=== PATIENT | female | born 1955 | race Caucasian/White ===

== ENCOUNTER 2016-07-11 12:28 | Outpatient (CLI) | payer MEDICAID ==
[~2016-07-11] VITALS: Ht 170.2 cm; Wt 106.6 kg
[~2016-07-11 12:28] MED LIST: ALBU8.5H2; AMOX-358 PO; ASPI-84 PO; ATEN50TA PO; ATOR80TA PO; CEFD300C3 PO; CETI10CA PO; CHOL100048 PO; CLPD75T PO; DULO60CA6 PO; ESTR0.5T3 PO; ESZO2TAB4 PO; FOLI1TAB24 PO; FURO80TA3 PO; HYDR-3720 PO; INDO50SU2 PO; LORA10TA7 PO; MULT-885 PO; PANT40TA3 PO; POTA20TA7 PO; PREG75CA PO; RANI150T15 PO; RISP1TAB94 PO; RIVA1PAT TD; SPIR50TA27 PO; SULF1TAB35 PO; TERB250T10 PO; TRAM50TA2 PO; TRIA16.5 INH; TRIAMCINOLONE TP
--- OUTSIDE RECORDS SUMMARY | 2016-07-11 12:31 | XMS REPORT | Continuity of Care Document ---
Author Author [facility] Organization [facility] Address Unknown Phone Unavailable Care Team Providers Care Quick Sketch Artist Name Role Phone Ray Serna PCP [phone] Source Comments Some departments are not documenting in the electronic medical record. If you do not see the information that you expected, contact Release of Information in the Health Information Management department at [phone] for further assistance in locating additional records.[facility] Active Allergies and Adverse Reactions Allergen Noted Date Severity Reactions Comments Egg 02/12/2016 Low SEE COMMENTS Throat swelling Milk 02/12/2016 Low SEE COMMENTS Throat swelling Current Medications Prescription Sig. Disp. Refills Start End Date Status Date atenolol (TENORMIN) 50 mg Take 50 mg by mouth twice Active tablet daily. cholecalciferol (VITAMIN Take 2,000 Units by mouth Active D-3) 1,000 units tablet daily. loratadine (CLARITIN) 10 Take 10 mg by mouth every Active mg tablet morning. duloxetine DR (CYMBALTA) Take 30 mg by mouth twice Active 30 mg capsule daily. rivastigmine(+) (EXELON) Apply 1 Patch to top of Active 4.6 mg/24 hr transdermal skin as directed daily. patch folic acid (FOLVITE) 1 mg Take 1 mg by mouth daily. Active tablet loperamide (IMODIUM) 2 mg Take 2 mg by mouth every Active capsule 6 hours as needed for Diarrhea. pregabalin (LYRICA) 150 Take 150 mg by mouth Active mg capsule three times daily. mirabegron(+) ER Take 50 mg by mouth Active (MYRBETRIQ) 50 mg tablet daily. pantoprazole DR Take 40 mg by mouth Active (PROTONIX) 40 mg tablet daily. risperiDONE (RISPERDAL) 1 Take 1 mg by mouth twice Active mg tablet daily. MULTIVIT,TH IRON,OTHER Take 1 Tab by mouth Active MIN (THERA-M PO) daily. triamcinolone acetonide Apply topically to Active (KENALOG) 0.1 % topical affected area every 12 cream hours. solifenacin(+) (VESICARE) Take 10 mg by mouth Active 10 mg tablet daily. ranitidine hcl(+) Take 150 mg by mouth Active (ZANTAC) 150 mg tablet twice daily. Cetirizine (ZYRTEC) 10 mg Take by mouth daily. Active cap ALPRAZolam (XANAX) 1 mg Take 1 mg by mouth every Active tablet 6 hours as needed for Anxiety. acetaminophen (TYLENOL) Take 2 Tabs by mouth four 0 03/09/20 Active 325 mg tablet times daily. AFTER one 16 week taking it as scheduled, you may transition to use as needed, 1-2 tabs every 4 hours if needed. Do not take more than 4 grams (4,000 mg) in 24 hours.This medication may be purchased from over the counter from your preferred pharmacy aspirin 325 mg tablet Take 1 Tab by mouth twice 60 Tab 0 03/16/20 Active daily. Start this the day 16 after your final lovenox injection and continue for 4 weeks. This is to prevent blood clotsThis medication may be purchased from over the counter from your preferred pharmacy docusate (COLACE) 100 mg Take 1 Cap by mouth twice 180 Cap 3 03/09/20 Active capsule daily. Use while taking 16 pain medications. 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 Hx of tobacco use, presenting hazards to health 02/17/2016 Overview: Stopped 2013 Hypertension goal BP (blood pressure) < 130/80 02/17/2016 Dyslipidemia 02/17/2016 Overweight 02/17/2016 Dyspnea on exertion 02/17/2016 CAD (coronary artery disease) Overview: Hx [place] 2007, patient reports having 9 stents placed over the years Resolved Problems Problem Noted Date Resolved Date 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 03/18/2016 Complications due to internal orthopedic device, implant, and graft (HCC) 03/18/2016 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 03/18/2016 Most Recent Encounters Date Type Specialty Providers Description 06/24/2016 Orders Only Orthopedic Surgery Sedrick Mei MD Status post total replacement of right hip (Primary Dx) 06/14/2016 Office Visit Orthopedic Surgery Sedrick Mei MD Right shoulder pain, unspecified chronicity (Primary Dx) 05/03/2016 Office Visit Orthopedic Surgery Sedrick Mei MD S/P revision of total hip (Primary Dx) 05/03/2016 Hospital Radiology Sedrick Mei MD Encounter 04/25/2016 Orders Only Orthopedic Surgery Sedrick Mei MD S/P revision of total hip (Primary Dx) Social History Tobacco Use Types Packs/Day Years Used Date Former Smoker Cigarettes 1 9 Quit: 05/15/2013 Smokeless Tobacco: Never Used Tobacco Cessation: Counseling Given: Yes Comments: Alcohol Use Drinks/Week oz/Week Comments No 0 Standard 0.0 drinks or equivalent Last Filed Vital Signs Vital Sign Reading Time Taken Blood Pressure 137/85 06/14/2016 10:48 AM ANIMAL ASSISTED THERAPIST Pulse 61 06/14/2016 10:48 AM ANIMAL ASSISTED THERAPIST Temperature 36.8 C (98.2 F) 03/10/2016 6:39 AM CDT Respiratory Rate - - Height 1.702 m (5' 7") 06/14/2016 10:48 AM ANIMAL ASSISTED THERAPIST Weight 110.224 kg (243 lb) 06/14/2016 10:48 AM ANIMAL ASSISTED THERAPIST Body Mass Index 38.05 06/14/2016 10:48 AM ANIMAL ASSISTED THERAPIST Oxygen Saturation 93% 03/10/2016 6:39 AM CDT Plan of Care Date Type Specialty Providers Description 02/28/2017 Appointment Orthopedic Surgery Sedrick Mei MD [address] [facility] [address] [place] [address] [phone] (Fax) Health Maintenance Due Date Last Done Comments Hepatitis C Screening 1954 Physical (Comprehensive) 1961 Exam Pertussis Vaccine 1965 Tetanus Vaccine 09/28/1971 Cervical Cancer Screening 09/28/1975 Breast Cancer Screening 1994 Colorectal Cancer 2004 Screening Shingles Vaccine 2014 Influenza Vaccine 01/14/2016 Results from Last 3 Months HIP MIN 4 VIEWS W PELVIS RT (05/03/2016 8:39 AM) Impressions Findings/Impression: 1. 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 Postoperative air has resolved. The skin camden have been removed. Tiny amount of heterotopic ossification adjacent to greater tuberosity is noted. 2. Right hip arthroplasty with large acetabular cup is again noted. Alignment is maintained. No periprosthetic lucency about the femoral stem. 3. Left hip arthroplasty is unchanged. Moderate degenerative changes lower lumbar spine is noted. Finalized by Reynold Samuels M.D. on 05/03/2016 9:33 AM. Dictated by Reynold Samuels M.D. on 05/03/2016 9:31 AM. Narrative HIP MIN 4 VIEWS W PELVIS RT, 2 AP views of the pelvis and 3 coned-down views right hip Indication: s/p Right hip revision. Comparison: March 02, 2016 Procedure Note Interface, Radiant Results - Tue May 03, 2016 9:36 AM ANIMAL ASSISTED THERAPIST HIP MIN 4 VIEWS W PELVIS RT, 2 AP views of the pelvis and 3 coned-down views right hip Indication: s/p Right hip revision. Comparison: March 02, 2016 IMPRESSION Findings/Impression: 1. 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 Postoperative air has resolved. The skin camden have been removed. Tiny amount of heterotopic ossification adjacent to greater tuberosity is noted. 2. Right hip arthroplasty with large acetabular cup is again noted. Alignment is maintained. No periprosthetic lucency about the femoral stem. 3. Left hip arthroplasty is unchanged. Moderate degenerative changes lower lumbar spine is noted. Finalized by Reynold Samuels M.D. on 05/03/2016 9:33 AM. Dictated by Reynold Samuels M.D. on 05/03/2016 9:31 AM.
[2016-07-11] MEDS ORDERED: DICL75TA2 PO (12:38)
[2016-07-11] MEDS ORDERED: SOLI10TA2 PO (12:38)
[2016-07-11] MEDS ORDERED: MIRA50TA PO (12:38)
[2016-07-11] MEDS ORDERED: DOCU100T2 PO (12:38)
[2016-07-11] MEDS ORDERED: RIVA1PAT12 TD (12:38)
[2016-07-11] MEDS ORDERED: ALPR1TAB7 PO (12:38)
[2016-07-11] MEDS ORDERED: ASPI-586 PO (12:38)
[2016-07-11] MEDS ORDERED: DULO30CA3 PO (12:38)
== END 2016-07-11 12:58 ==
LOC: PREOP 12:28
PROVIDERS: ATTEND Urology
DX: Z01.818 Encounter for other preprocedural examination (principal); N39.46 Mixed incontinence; N32.81 Overactive bladder; N36.42 Intrinsic sphincter deficiency (ISD)

== ENCOUNTER 2016-07-15 06:05 | Day surgery (SDC) | payer MEDICAID ==
[~2016-07-15] VITALS: Ht 170.2 cm; Wt 106.6 kg
[~2016-07-15 06:05] MED LIST changes: +ALPR1TAB7 PO; +ASPI-586 PO; +DICL75TA2 PO; +DOCU100T2 PO; +DULO30CA3 PO; +MIRA50TA PO; +RIVA1PAT12 TD; +SOLI10TA2 PO
--- OUTSIDE RECORDS SUMMARY | 2016-07-15 06:14 | XMS REPORT | Continuity of Care Document ---
Author Author [facility] Organization [facility] Address Unknown Phone Unavailable Care Team Providers Care Gas Station Service Attendant Name Role Phone Ray Serna PCP [phone] Source Comments Some departments are not documenting in the electronic medical record. If you do not see the information that you expected, contact Release of Information in the Health Information Management department at [phone] for further assistance in locating additional records.[facility] Active Allergies and Adverse Reactions Allergen Noted [...] 02/17/2016 CAD (coronary artery disease) Overview: Hx [place] 2007, patient reports having 9 stents placed [...] Taken Blood Pressure 137/85 06/14/2016 10:48 AM IMPLEMENTATION ANALYST Pulse 61 06/14/2016 10:48 AM IMPLEMENTATION ANALYST Temperature 36.8 C (98.2 F) 03/10/2016 6:39 AM CDT Respiratory Rate - - Height 1.702 m (5' 7") 06/14/2016 10:48 AM IMPLEMENTATION ANALYST Weight 110.224 kg (243 lb) 06/14/2016 10:48 AM IMPLEMENTATION ANALYST Body Mass Index 38.05 06/14/2016 10:48 AM IMPLEMENTATION ANALYST Oxygen Saturation 93% 03/10/2016 6:39 AM CDT Plan of Care Date Type Specialty Providers Description 02/28/2017 Appointment Orthopedic Surgery Sedrick Mei MD [address] [facility] [address] [place] [address] [phone] (Fax) Health Maintenance Due Date Last Done [...] - Tue May 03, 2016 9:36 AM IMPLEMENTATION ANALYST HIP MIN 4 VIEWS W PELVIS RT, [...]
[2016-07-15 06:25] VITALS: BP 144/94
[2016-07-15] MEDS ORDERED: FAMOTIDINE 20MG/2ML IV (PEPCID) ONE (06:48)
[2016-07-15] MEDS ORDERED: cefTRIAXone 1 GM (ROCEPHIN) VIAL ONE (06:49)
[2016-07-15] MEDS ORDERED: NS (IVPB) 50 ML ONE (06:49)
[2016-07-15] MEDS ORDERED: LACTATED RINGERS 1,000 ML IV PRN (06:57)
[2016-07-15] MEDS ORDERED: cefTRIAXone 1 GM/NS 50 ML IVPB IV ONE ×2 (07:00)
[2016-07-15] MEDS ORDERED: FAMOTIDINE 20MG/2ML IV (PEPCID) IV ONE (07:00)
[2016-07-15] MEDS ORDERED: fentaNYL INJECTION 100 MCG/2 ML AMP ONE (07:05)
[2016-07-15] MEDS ORDERED: proPOfol 200 MG/20 ML (DIPRIVAN) VIAL IV ONE (07:05)
[2016-07-15] MEDS ORDERED: LACTATED RINGERS 1,000 ML IV ONE (07:05)
[2016-07-15] MEDS ORDERED: MIDAZOLAM 2 MG/2 ML (VERSED) VIAL ONE (07:05)
[2016-07-15] MEDS ORDERED: ONDANSETRON 4 MG/2 ML (SDV) Z0FRAN ONE (07:05)
[2016-07-15] MEDS ORDERED: SEVOFLURANE (ULTANE) 15 ML INHAL SOLN ONE (07:05)
[2016-07-15] MEDS ORDERED: LIDOCAINE PF 2% 10 ML (XYLOCAINE) AMP ONE (07:05)
--- NOTE | 2016-07-15 07:05 | Progress Note-Pre Operative ---
Pre-Operative Progress Note H&P Reviewed The H&P was reviewed, patient examined and no changes noted. Date H&P Reviewed: Jul 15, 2016 Time H&P Reviewed: 07:05 Pre-Operative Diagnosis: Incontinence, OAB, ISD OLEG COUGHLIN MD Jul 15, 2016 7:05 am
--- NOTE | 2016-07-15 07:06 | Progress Note-Post Operative ---
Post-Operative Progess Note Pre-Operative Diagnosis Incontinence, OAB, ISD Post-Operative Diagnosis SAME Post-Op Procedure Note Date of Procedure: Jul 15, 2016 Name of Procedure: MACROPLASTIQUE IMPLANT Anesthesia Type GENERAL Estimated blood loss (mL): OLEG PRUITT MD Jul 15, 2016 7:06 am
--- NOTE | 2016-07-15 07:08 | Discharge Inst-Urology ---
Discharge Inst-Urology Discharge Medications New, Converted, or Re-newed RX: RX on Chart Patient Instructions/Follow Up Plan Please make appointment to been seen in office in 4 weeks. Resume ASA in 48 hrs if no bleeding Hold Vesicare Increase oral fluids for 48 hours and then as needed. Diet and Activity as tolerated. If questions or concerns contact your physician Or seek help at emergency department. OLEG COUGHLIN MD Jul 15, 2016 7:08 am
[2016-07-15] MEDS ORDERED: ONDANSETRON 4 MG/2 ML (SDV) Z0FRAN IV PRN (08:15)
[2016-07-15] MEDS ORDERED: PROMETHAZINE INJ 25 MG/ML (PHENERGAN) AMP IV PRN (08:15)
[2016-07-15] MEDS ORDERED: morphine INJ 10 MG/ML 1ML (SYR OR VIAL) IV PRN (08:15)
[2016-07-15 08:55] VITALS: BP 144/88
[2016-07-15] MEDS ORDERED: NITR-65 PO (09:14)
[2016-07-15] MEDS ORDERED: PHEN-640 PO (09:14)
[2016-07-15 09:25] VITALS: BP 164/94
--- NOTE | 2016-07-15 10:14 | OPERATIVE REPORT ---
PROCEDURE PHYSICIAN: OLEG COUGHLIN DATE OF PROCEDURE: 07/15/2016 PREOPERATIVE DIAGNOSES: 1. Mixed urinary incontinence. 2. Overactive bladder. 3. ISD. POSTOPERATIVE DIAGNOSES: 1. Mixed urinary incontinence. 2. Overactive bladder. 3. ISD. OPERATION: 1. Cystoscopy. 2. Macroplastique implant. SURGEON: Dr. Coughlin. ANESTHESIA: General. COMPLICATIONS: None. PROCEDURE: Under satisfactory general anesthesia, the patient in lithotomy position, the genitalia were prepped and draped in the usual sterile fashion. Cystoscope was introduced under vision and the Macroplastique implant was injected, a full syringe at the 6 o'clock position and half a syringe in each of 10 and 2 o'clock positions, using the described technique. There was a full coaptation of the mid urethra and the bladder was left full and a manual Valsalva maneuver was performed after removing the cystoscope and it was negative. The cystoscope was reintroduced to empty the bladder. There was very minimal bleeding. The patient tolerated the procedure and anesthesia well and was sent to recovery room in stable condition. Job ID: [id number] Dictated Date: 07/15/2016 08:36:11 Second Chef Date: 07/15/2016 10:07:48 / linda
== END 2016-07-15 09:35 | disposition home or self-care (01) ==
LOC: SDC 06:05
PROVIDERS: ATTEND Urology
DX: N36.42 Intrinsic sphincter deficiency (ISD) (principal); N39.46 Mixed incontinence; N32.81 Overactive bladder
CPT/HCPCS: 87081; 93005

== ENCOUNTER → 2017-04-20 | Outpatient (CLI) | payer MEDICAID ==
[~2017-04-20] MED LIST changes: +NITR-65 PO; +PHEN-640 PO
--- NOTE | 2017-04-21 09:34 | Diagnostic Imaging Report ---
Bilateral screening mammogram 2D views with tomosynthesis The current study was also evaluated with a Computer Aided Detection (CAD) system. Indication: Screening. No current complaints stated on the questionnaire. COMPARISON: None. This is a baseline study. Findings: The breasts are composed of almost entirely fatty tissue. Benign-appearing calcifications are seen. Nodules in the left breast up to 6 mm in size are circumscribed in the outer aspects with the suggestion of fatty hilum of intramammary lymph node seen. No suspicious mass. IMPRESSION: No mammographic evidence of malignancy. Annual screening mammograms recommended. ACR BI-RADS Category 2: Benign findings. Result letter will be mailed to the patient. Note: At least 10% of breast cancer is not imaged by mammography. Dictated by: Dictated on workstation # [id number]
== END ==
LOC: RAD 13:03
PROVIDERS: ATTEND Family Medicine
DX: Z12.31 Encounter for screening mammogram for malignant neoplasm of breast (principal)

== ENCOUNTER → 2017-06-07 | Outpatient (CLI) | payer MEDICAID | LOC: PREOP 05:31 | PROVIDERS: ATTEND Surgery | DX: Z01.818 Encounter for other preprocedural examination (principal); Z12.11 Encounter for screening for malignant neoplasm of colon; K92.1 Melena ==

== ENCOUNTER 2017-06-16 10:50 | Inpatient (IN) | payer MEDICAID ==
[~2017-06-16] VITALS: Ht 170.2 cm; Wt 91.2 kg
[2017-06-16 13:55] VITALS: BP 132/86
--- OUTSIDE RECORDS SUMMARY | 2017-06-16 13:56 | XMS REPORT | Clinical Summary ---
Author Author [facility] Organization [facility] Address Unknown Phone Unavailable Care Team Providers Care Improvement Manager Name Role Phone Sedrick Mei MD Unavailable Unavailable Ray Serna MD PCP Source Comments Some departments are not documenting in the electronic medical record. If you do not see the information that you expected, contact Release of Information in the Health Information Management department at [phone] for further assistance in locating additional records.[facility] Allergies No Known Allergies Current Medications Prescription Sig. Disp. Refills Start [...] capsule 6 hours as needed for Diarrhea. pantoprazole DR Take 40 mg by mouth Active (PROTONIX) 40 mg tablet daily. risperiDONE (RISPERDAL) 1 Take 1 mg by mouth twice Active mg tablet daily. MULTIVIT,TH IRON,OTHER Take 1 Tab by mouth Active MIN (THERA-M PO) daily. triamcinolone acetonide Apply topically to Active (KENALOG) 0.1 % topical affected area every 12 cream hours. ranitidine hcl(+) Take 150 mg by mouth [...] than 4 grams (4,000 mg) in 24 hours. This medication may be purchased from over the counter from your preferred pharmacy aspirin 325 mg tablet Take 1 Tab by mouth twice 60 Tab 0 03/16/20 Active daily. Start this the day 16 after your final lovenox injection and continue for 4 weeks. This is to prevent blood clots This medication may be purchased from over the [...] 3 hours as needed 16 for Pain diclofenac sodium DR Take 75 mg by mouth twice Active (VOLTAREN) 75 mg tablet daily. Take with food. metoprolol tartrate Take 50 mg by mouth twice Active (LOPRESSOR) 50 mg tablet daily. traZODone (DESYREL) 50 mg Take 50 mg by mouth at Active tablet bedtime as needed for Sleep. fesoterodine ER(+) Take 4 mg by mouth daily. Active (TOVIAZ) 4 mg tablet nitrofurantoin Take 100 mg by mouth 06/02/19 Discontin monohyd/m-cryst every 12 hours. Take with 18 ued (MACROBID) 100 mg capsule food. 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 03/18/2016 Complications due to internal orthopedic device, implant, and graft (FORM[facility]) 03/18/2016 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[facility]) 02/12/2016 03/18/2016 Encounters Date Type Specialty Care Team Description 06/06/2017 Telephone Anesthesia Pain Dori Martinez RN General Question 06/02/2017 Hospital Radiology Brian Salcedo MD Encounter 06/02/2017 Procedure visit Anesthesia Pain Brian Salcedo MD Lumbar radiculopathy (Primary Dx); Left lumbosacral radiculopathy; Degeneration of lumbar or lumbosacral intervertebral disc 06/02/2017 Ancillary Anesthesia Pain Brian Salcedo MD Lumbar radiculopathy Orders 06/02/2017 Ancillary Anesthesia Pain Brian Salcedo MD Orders 04/18/2017 Telephone Anesthesia Pain Salvador Cheney MD Post Procedure 04/12/2017 Procedure visit Anesthesia Pain Salvador Cheney MD Lumbosacral radiculopathy due to intervertebral disc disorder (Primary Dx) 04/12/2017 Hospital Radiology Salvador Cheney MD Encounter 04/12/2017 Ancillary Anesthesia Pain Salvador Cheney MD Pain Orders 04/12/2017 Ancillary Anesthesia Pain Salvador Cheney MD Orders 03/24/2017 Procedure visit Anesthesia Pain Salvador Cheney MD Degeneration of lumbar or lumbosacral intervertebral disc (Primary Dx); Lumbar radiculopathy 03/24/2017 Hospital Radiology Salvador Cheney MD Canceled (Other) Encounter 03/24/2017 Ancillary Anesthesia Pain Salvador Cheney MD Low back pain, Orders unspecified back pain laterality, unspecified chronicity, with sciatica presence unspecified 03/24/2017 Ancillary Anesthesia Pain Salvador Cheney MD Orders from Last 3 Months Family History Medical History Relation Name Comments Diabetes Mother Relation Name Status Comments Father accident (Age 54) Mother (Age 84) Social History Tobacco Use Types Packs/Day Years Used Date Former Smoker Cigarettes 1 9 Quit: 05/15/2013 Smokeless Tobacco: Never Used Tobacco Cessation: Counseling Given: Yes Alcohol Use Drinks/Week oz/Week Comments No 0 Standard 0.0 drinks or equivalent Sex Assigned at Date Recorded Not on file Last Filed Vital Signs Vital Sign Reading Time Taken Blood Pressure 128/100 06/02/2017 12:32 PM TEACHER AIDE Pulse 65 06/02/2017 11:38 AM TEACHER AIDE Temperature 36.4 C (97.5 F) 06/02/2017 11:38 AM TEACHER AIDE Respiratory Rate 18 06/02/2017 11:38 AM TEACHER AIDE Oxygen Saturation 97% 06/02/2017 12:32 PM TEACHER AIDE Inhaled Oxygen - - Concentration Weight 94.8 kg (209 lb) 06/02/2017 11:38 AM TEACHER AIDE Height 170.2 cm (5' 7") 06/02/2017 11:38 AM TEACHER AIDE Body Mass Index 32.73 06/02/2017 11:38 AM TEACHER AIDE Plan of Treatment Health Maintenance Due Date Last Done Comments HEPATITIS C SCREENING 1954 PHYSICAL (COMPREHENSIVE) 1961 EXAM PERTUSSIS VACCINE 1965 TETANUS VACCINE 09/28/1971 CERVICAL CANCER SCREENING 1984 BREAST CANCER SCREENING 1994 COLORECTAL CANCER 2004 SCREENING SHINGLES VACCINE 2014 INFLUENZA VACCINE 12/13/2016 Implants Implanted Type Area Long Distance Billing Operator Device Expiration Model / Identifier Date Serial / Lot Screw Bone 3.5mm 26mm Lcp Stainless SYNTHES:Evolita 212.109 / Steel Full Thread Pelvis [place] N/A / Implanted: Qty: 1 on 03/02/2016 by N/A Sedrick Mei MD Screw Bone 3.5mm 28mm Lcp Stainless SYNTHES:Evolita 212.110 / Steel Tibia Proximal [place] N/A / Implanted: Qty: 1 on 03/02/2016 by N/A Sedrick Mei MD Screw Bone 3.5mm 30mm Lcp Stainless SYNTHES:Evolita 212.111 / Steel Tibia Proximal [place] N/A / Implanted: Qty: 1 on 03/02/2016 by Ginette/A Sedrick Mei MD Screw Bone 3.5mm 38mm Lcp Stainless SYNTHES:Evolita 212.116 / Steel Full Thread Pelvis [place] N/A / Implanted: Qty: 1 on 03/02/2016 by Ginette/Sedrick Davis MD Screw Bone 3.5mm 40mm Lcp Stainless SYNTHES:Evolita 212.117 / Steel Tibia Proximal [place] N/A / Implanted: Qty: 1 on 03/02/2016 by N/A Sedrick Mei MD Screw Bone 3.5mm 60mm Lcp Stainless SYNTHES:SYNTHES 212.124 / Steel Full Thread Pelvis [place] N/A / Implanted: Qty: 1 on 03/02/2016 by Ginette/A Sedrick Mei MD Screw Bone 3.5mm 6mm 28mm Lcp SYNTHES:SYNTHES 02.200.028 Stainless Steel Full Thread [place] / Implanted: Qty: 1 on 03/02/2016 by N/A / Sedrick Mei MD N/A Screw Bone 3.5mm 6mm 45mm Lcp SYNTHES:SYNTHES 02.200.045 Stainless Steel Full Thread [place] / Implanted: Qty: 1 on 03/02/2016 by N/A / Sedrick Mei MD N/A Mdm Liner Cementless THEO:JLUIS 10/13/2016 [id number] Implanted: Qty: 1 on 03/02/2016 by [employer] / Sedrick Mei MD N/A / [id number] Insert Acetabular 60mm 28mm 0d X3 THEO:JLUIS 07/02/2020 1236-2- 860 Duration Adm 12.9mm CA [employer] / Implanted: Qty: 1 on 03/02/2016 by N/A / Sedrick Mei MD [id number] Screw Bone 4mm 18mm Dynatran Rflx Right: Hip THEO:THEO [id number] / Hybrid Titanium Spine Vari [employer] [id number] Implanted: Qty: 1 on 03/02/2016 by 1014 / Sedrick Mei MD [id number] Head Femoral +12mm Offset 28mm Hip THEO:THEO 04/14/2017 6260-9- 428 Cocr V40 Lfit INSTR / Implanted: Qty: 1 on 03/02/2016 by N/A / Sedrick Mei MD [id number] Hemispherical Shell 70mm/ I Right: Hip [id number] Implanted: Qty: 1 on 03/02/2016 by / Sedrick Mei MD [id number] / [id number] Plate Screw 6.5mm X 35mm Right: Hip THEO Implanted: Qty: 1 on 03/02/2016 by / Sedrick Mei MD / [id number] Screw Bone 20mm 6.5mm Torx Right: Hip UNIDENTIFIED Acetabular Cancellous MFG / Implanted: Qty: 1 on 03/02/2016 by Sedrick Pastor MD [id number] Screw Bone 20mm 6.5mm Torx Right: Hip UNIDENTIFIED Acetabular Cancellous MFG / Implanted: Qty: 1 on 03/02/2016 by Sedrick Pastor MD [id number] Plate 117mm Stainless Steel 3.5mm Right: Hip SYNTHES:SYNTHES 02100.109 Screw 9 Hole Locking Low [place] / Implanted: Qty: 1 on 03/02/2016 by Sedrick Pastor MD NA Plate 130mm Stainless Steel 3.5mm Right: Hip SYNTHES:SYNTHES 02100.110 Screw 10 Hole Locking Low [place] / Implanted: Qty: 1 on 03/02/2016 by Sedrick Pastor MD NA Screw Bone 3.5mm 60mm Pelvic Cortex Right: Hip SYNTHES:SYNTHES 204.660 / Self Tap [place] NA / Implanted: Qty: 1 on 03/02/2016 by Sedrick Davies MD Explanted Type Area Long Distance Billing Operator Device Expiration Model / Identifier Date Serial / Lot Total Hip Components / Explanted: Qty: 3 on 03/02/2016 by Sedrick Pastor MD NA Procedures Procedure Name Priority Date/Time Associated Diagnosis Comments PA NJX ANES&/STRD W/IMG Routine 06/02/2017 Left lumbosacral Results for this TFRML EDRL LMBR/SAC EA LV 12:53 PM TEACHER AIDE radiculopathy procedure are in the results section. PA NJX ANES&/STRD W/IMG Routine 06/02/2017 Left lumbosacral Results for this TFRML EDRL LMBR/SAC 1 LVL 12:53 PM TEACHER AIDE radiculopathy procedure are in the results section. PA RPB BILATERAL SEO ASSISTANT Routine 04/12/2017 Lumbosacral radiculopathy Results for this REVIEW 10:36 AM TEACHER AIDE due to intervertebral procedure are in the disc disorder results section. PA NJX ANES&/STRD W/IMG Routine 04/12/2017 Lumbosacral radiculopathy Results for this TFRML EDRL LMBR/SAC 1 LVL 10:36 AM TEACHER AIDE due to intervertebral procedure are in the disc disorder results section. from Last 3 Months Results * [facility] SPINE INJECT SNRB/TFESI LUMBAR/SACRAL (06/02/2017 12:53 PM) Specimen Performing Laboratory OTHER OUTSIDE LAB Narrative Brian Salcedo MD 06/02/2017 12:53 PM [facility] SPINE INJECT SNRB/TFESI LUMBAR/SACRAL Procedure: transforaminal epidural Laterality: right Location: lumbar - L4-5 and L5-S1 Consent: Consent obtained: written Consent given by: patient Risks discussed: allergic reaction, bleeding, bruising, infection, nerve damage, no change or worsening in pain, reaction to medication, seizure, swelling and weakness Alternatives discussed: alternative treatment, delayed treatment and no treatment [place] Protocol: Relevant documents: relevant documents present and verified Site marked: the operative site was marked Patient identity confirmed: Patient identify confirmed verbally with patient. Time out: Immediately prior to procedure a "time out" was called to verify the correct patient, procedure, equipment, sales support advisor and site/side marked as required Procedures Details: Indications: pain Prep: chlorhexidine Patient position: prone Estimated Blood Loss: minimal Specimens: none Number of Levels: 2 Guidance: fluoroscopy Contrast: Procedure confirmed with contrast under live fluoroscopy. Needle and Epidural Catheter: quincke Needle size: 25 G Injection procedure: Incremental injection and Negative aspiration for blood Patient tolerance: Patient tolerated the procedure well with no immediate complications. Pressure was applied, and hemostasis was accomplished. Outcome: Pain relieved Comments: LUMBAR/SACRAL TRANSFORAMINAL EPIDURAL STEROID INJECTION PROCEDURE: 1) right L4-5 and L5-S1 transforaminal epidural steroid injection 2) Fluoroscopic needle guidance REASON FOR PROCEDURE: Lumbar radiculopathy PHYSICIAN: Brian Salcedo MD MEDICATIONS INJECTED: 0.75 mL of Dexamethasone (7.5 mg) + 0.25 ml of sterile, preservative-free saline + 0.5 ml lidocaine 1% at each level LOCAL ANESTHETIC INJECTED: 2 mL of 1% lidocaine per site SEDATION MEDICATIONS: None ESTIMATED BLOOD LOSS: None SPECIMENS REMOVED: None COMPLICATIONS: None TECHNIQUE: Time-out was taken to identify the correct patient, procedure and side prior to starting the procedure. Lying in a prone position, the patient was prepped and draped in the usual sterile fashion using DuraPrep and a fenestrated drape. The area to be injected was determined under fluoroscopic guidance. Local anesthetic was given by raising a skin wheal and going down to the hub of a 27-gauge 1.25-inch needle. The 3.5-inch 25-gauge Quincke needle was advanced toward the 6 o clock position of the pedicle at each above-named nerve root level. The needle was advanced to the final position via a lateral fluoroscopic intermittent image. Omnipaque 240 was injected under live fluoroscopy and showed epidural spread and there was no vascular runoff. After a negative aspiration, the medication was then injected. The procedure was completed without complications and was tolerated well. The patient was monitored after the procedure. The patient (or responsible alliance party) was given post-procedure and discharge instructions to follow at home. The patient was discharged in stable condition. * FLUORO GUIDANCE FOR SPINE INJ RAD (06/02/2017 12:15 PM) Only the most recent of 2 results within the time period is included. Specimen Performing Laboratory [facility] Narrative This order has been auto finalized and does not contain a result. * [facility] SPINE INJECT SNRB/TFESI LUMBAR/SACRAL (04/12/2017 10:36 AM) Specimen Performing Laboratory OTHER OUTSIDE LAB Narrative Salvador Cheney MD 04/12/2017 10:36 AM SNR/TF LMBR/SAC Procedure: transforaminal epidural Laterality: bilateral Location: lumbar - L4-5 Consent: Consent obtained: verbal and written Consent given by: patient Risks discussed: allergic reaction, bleeding, bruising, infection, nerve damage, no change or worsening in pain, weakness, swelling and reaction to medication Alternatives discussed: alternative treatment and delayed treatment Discussed with patient the purpose of the treatment/procedure, other ways of treating my condition, including no treatment/ procedure and the risks and benefits of the alternatives. Patient has decided to proceed with treatment/procedure. [place] Protocol: Relevant documents: relevant documents present and verified Test results: test results available and properly labeled Imaging studies: imaging studies available Required items: required blood products, implants, devices, and special equipment available Site marked: the operative site was marked Patient identity confirmed: Patient identify confirmed verbally with patient. Time out: Immediately prior to procedure a "time out" was called to verify the correct patient, procedure, equipment, sales support advisor and site/side marked as required Procedures Details: Indications: pain Prep: Betadine Patient position: prone Estimated Blood Loss: minimal Specimens: none Amount Injected: L4-5: 2mL Number of Levels: 1 Approach: paramedian Guidance: fluoroscopy Contrast: Procedure confirmed with contrast under live fluoroscopy. Needle size: 25 G Injection procedure: Incremental injection and Negative aspiration for blood Patient tolerance: Patient tolerated the procedure well with no immediate complications. Pressure was applied, and hemostasis was accomplished. Outcome: Pain unchanged Comments: 40mg of depomedrol and 1ml of normal saline injected at each level from Last 3 Months
--- OUTSIDE RECORDS SUMMARY | 2017-06-16 13:56 | XMS REPORT | Encounter Summary ---
Author Author [facility] Organization [facility] Address Unknown Phone Unavailable Care Team Providers Care Scrap Collector Name Role Phone Sedrick Mei MD Unavailable Unavailable Ray Serna MD PCP Reason for Visit * Reason Comments General Question Encounter Details Date Type Department Care Team Description 06/06/2017 Telephone Spine Center Anesthesia Dori Martinez RN General Question Pain Clinic [address] [place] [address] [facility] [facility] [place] [address] Social History Tobacco Use Types Packs/Day Years Used Date Former Smoker Cigarettes 1 9 Quit: 05/15/2013 Smokeless Tobacco: Never Used Alcohol Use Drinks/Week oz/Week Comments No 0 Standard 0.0 drinks or equivalent Sex Assigned at Date Recorded Not on file as of this encounter Functional Status Functional Status Response Date of Assessment Does the patient have a hearing impairment: Yes 03/24/2017 Does the patient have a visual impairment: Yes 03/24/2017 Does the patient have impaired ambulation: Yes 03/24/2017 Does the patient have an activity of daily living Yes 03/24/2017 (ADL) impairment: Does the patient have an instrumental activity of Yes 03/24/2017 daily living (IADL) impairment: Cognitive Status Response Date of Assessment Does the patient have a cognitive impairment: No 03/24/2017 as of this encounter Miscellaneous Notes * Telephone Encounter - Dori Martinez RN - 06/06/2017 12:37 PM INSIDE PHONE SALES Patient left message asking to be called back. Did not say what question was. LM on voicemail to call back with question. in this encounter Plan of Treatment Not on fileas of this encounter Visit Diagnoses Not on filein this encounter
--- OUTSIDE RECORDS SUMMARY | 2017-06-16 13:56 | XMS REPORT | Continuity of Care Document ---
Author Author [facility] Organization [facility] Address Unknown Phone Unavailable Care Team Providers Care Commercial Art Instructor Name Role Phone [employer] Unavailable Unavailable Problems Medications Allergies, Adverse Reactions, Alerts Immunizations Results Vital Signs Encounters Location Location Details Encounter Type Encounter Number Reason For Visit Attending Provider ADM Date DC Date Status Source OUTPATIENT [id number] JOHN KRUSE 02/19/2016 02/19/2016 Active [facility] OUTPATIENT [id number] SARITA HASTINGS 05/03/20162015 Active [facility] OUTPATIENT [id number] EDITH RANDHAWA 02/20/2017 Active [facility] OUTPATIENT [id number] EDITH SAYED 03/24/2017 03/24/2017 Active [facility] OUTPATIENT [id number] EDITH SAYED 04/12/2017 04/12/2017 Active [facility] OUTPATIENT [id number] CAROLINA SIMON 06/02/2017 06/02/2017 Active [facility] O Active [facility] Procedures Plan of Care Social History Assessment and Plan Family History Advance Directives Functional Status
--- OUTSIDE RECORDS SUMMARY | 2017-06-16 13:57 | XMS REPORT | Encounter Summary ---
Author Author [facility] Organization [facility] Address Unknown Phone Unavailable Care Team Providers Care Artificial Plastic Eye Maker Name Role Phone Sedrick Mei MD Unavailable Unavailable Ray Serna MD PCP Encounter Details Date Type Department Care Team Description 04/12/2017 Ancillary Spine Center Anesthesia Salvador Cheney MD Orders Pain Clinic [address] [place] [address] [facility] [phone] [place] [address] [phone] Social History Tobacco Use Types Packs/Day Years [...] impairment: No 03/24/2017 as of this encounter Plan of Treatment Not on fileas of this encounter Visit Diagnoses Not on filein this encounter
--- OUTSIDE RECORDS SUMMARY | 2017-06-16 13:57 | XMS REPORT | Encounter Summary ---
Author Author [facility] Organization [facility] Address Unknown Phone Unavailable Care Team Providers Care Subcontract Administrator Name Role Phone Sedrick Mei MD Unavailable Unavailable Ray Serna MD PCP Encounter Details Date Type Department Care Team Description 06/02/2017 Hospital [facility] Brian Salcedo MD Encounter Hospital Radiology [address] [place] [address] [facility] [phone] [place] [address] [phone] Social History Tobacco Use Types Packs/Day Years [...] impairment: No 03/24/2017 as of this encounter Medications at Time of Discharge Medication Sig. Disp. Refills Start Date End Date acetaminophen (TYLENOL) Take 2 Tabs by mouth four 0 03/09/2016 325 mg tablet times daily. AFTER one week taking it as scheduled, you may transition to use as needed, 1-2 tabs every 4 hours if needed. Do not take more than 4 grams (4,000 mg) in 24 hours. This medication may be purchased from over the counter from your preferred pharmacy ALPRAZolam (XANAX) 1 mg Take 1 mg by mouth every tablet 6 hours as needed for Anxiety. aspirin 325 mg tablet Take 1 Tab by mouth twice 60 Tab 0 03/16/2016 daily. Start this the day after your final lovenox injection and continue for 4 weeks. This is to prevent blood clots This medication may be purchased from over the counter from your preferred pharmacy atenolol (TENORMIN) 50 mg Take 50 mg by mouth twice tablet daily. Cetirizine (ZYRTEC) 10 mg Take by mouth daily. cap cholecalciferol (VITAMIN Take 2,000 Units by mouth D-3) 1,000 units tablet daily. diclofenac sodium DR Take 75 mg by mouth twice (VOLTAREN) 75 mg tablet daily. Take with food. docusate (COLACE) 100 mg Take 1 Cap by mouth twice 180 Cap 3 2015 capsule daily. Use while taking pain medications. Hold if you are having loose stools duloxetine DR (CYMBALTA) Take 30 mg by mouth twice 30 mg capsule daily. fesoterodine ER(+) Take 4 mg by mouth daily. (TOVIAZ) 4 mg tablet folic acid (FOLVITE) 1 mg Take 1 mg by mouth daily. tablet loperamide (IMODIUM) 2 mg Take 2 mg by mouth every capsule 6 hours as needed for Diarrhea. loratadine (CLARITIN) 10 Take 10 mg by mouth every mg tablet morning. metoprolol tartrate Take 50 mg by mouth twice (LOPRESSOR) 50 mg tablet daily. MULTIVIT,TH IRON,OTHER Take 1 Tab by mouth MIN (THERA-M PO) daily. oxyCODONE (ROXICODONE, Take 1-2 Tabs by mouth 100 Tab 0 03/09/2016 OXY-IR) 5 mg tablet every 3 hours as needed for Pain pantoprazole DR Take 40 mg by mouth (PROTONIX) 40 mg tablet daily. ranitidine hcl(+) Take 150 mg by mouth (ZANTAC) 150 mg tablet twice daily. risperiDONE (RISPERDAL) 1 Take 1 mg by mouth twice mg tablet daily. rivastigmine(+) (EXELON) Apply 1 Patch to top of 4.6 mg/24 hr transdermal skin as directed daily. patch traZODone (DESYREL) 50 mg Take 50 mg by mouth at tablet bedtime as needed for Sleep. triamcinolone acetonide Apply topically to (KENALOG) 0.1 % topical affected area every 12 cream hours. as of this encounter Plan of Treatment Not on fileas of this encounter Visit Diagnoses Not on filein this encounter
--- OUTSIDE RECORDS SUMMARY | 2017-06-16 13:57 | XMS REPORT | Encounter Summary ---
Author Author [facility] Organization [facility] Address Unknown Phone Unavailable Care Team Providers Care Student Financial Services Counselor Name Role Phone Sedrick Mei MD Unavailable Unavailable Ray Serna MD PCP Reason for Referral * Pain Authorization Status Reason Specialty Diagnoses / Referred By Referred To Procedures Contact Contact Authorized Anesthesia Pain Diagnoses Salvador Cheney Bhg Spn Pain Proc Left lumbosacral [address] COMPREHENSIVE SPN rocedures [address] CNTR [facility] [place] [place], [place] INJECT [id number] SNRB/TFESI Phone: Phone: LUMBAR/SACRAL [phone] Fax: Reason for Visit * Reason Comments Post Procedure Encounter Details Date Type Department Care Team Description 04/18/2017 Telephone [place] [facility] Salvador Cheney MD Post [facility] [address] [place] [address] [place] [address] [phone] Social History Tobacco Use Types Packs/Day Years [...] encounter Miscellaneous Notes * Telephone Encounter - Sandy Nicole RN - 04/18/2017 2:51 PM [employer]UL [employer] PULLER Procedure: transforaminal epidural 04/12/17 Laterality: bilateral Location: lumbar - L4-5 Patient reports more than 90% pain relief from her injection a week ago. in this encounter Plan of Treatment Name Priority Associated Diagnoses Order Schedule [facility] INJECT SNRB/TFESI Routine Left lumbosacral 3 Occurrences starting LUMBAR/SACRAL radiculopathy 04/18/2017 until 07/17/2017, 1 completed as of this encounter Results * [facility] INJECT SNRB/TFESI [...] alternative treatment, delayed treatment and no treatment [place] Protocol: Relevant documents: relevant documents present and verified Site marked: the operative site was marked Patient identity confirmed: Patient identify confirmed verbally with patient. Time out: Immediately prior to procedure a "time out" was called to verify the correct patient, procedure, equipment, technical support internship and site/side marked as required Procedures Details: [...] after the procedure. The patient (or responsible libertarian) was given post-procedure and discharge instructions to follow at home. The patient was discharged in stable condition. in this encounter Visit Diagnoses Diagnosis Left lumbosacral radiculopathy - Primary Thoracic or lumbosacral neuritis or radiculitis, unspecified
--- OUTSIDE RECORDS SUMMARY | 2017-06-16 13:57 | XMS REPORT | Encounter Summary ---
Author Author [facility] Organization [facility] Address Unknown Phone Unavailable Care Team Providers Care Addiction Psychiatrist Name Role Phone Sedrick Mei MD Unavailable Unavailable Ray Serna MD PCP Reason for Referral * Pain Authorization Status Reason Specialty Diagnoses / Referred By Referred To Procedures Contact Contact Authorized Anesthesia Pain Diagnoses Salvador Cheney Bhg Spn Pain Proc Left lumbosacral [address] COMPREHENSIVE SPN rocedures [address] CNTR [facility] [place], [place] INJECT [address] SNRB/TFESI Phone: Phone: LUMBAR/SACRAL [phone] Fax: Reason for Visit * Reason Comments Pain * Pain Authorization Status Reason Specialty Diagnoses / Referred By Referred To Procedures Contact Contact Authorized Anesthesia Pain Diagnoses Salvador Cheney Bhg Spn Pain Proc Left lumbosacral [address] radiculopathy [address] COMPREHENSIVE SPN rocedures [address] CNTR [facility] [place] INJECT [address] SNRB/TFESI Phone: Phone: LUMBAR/SACRAL [phone] Fax: Encounter Details Date Type Department Care Team Description 06/02/2017 Procedure visit [facility] Brian Salcedo MD Lumbar radiculopathy Pain Procedure [address] (Primary Dx); [address] Left lumbosacral [place] [address] radiculopathy; COMPREHENSIVE SPN CNTR [phone] [place] [address] lumbosacral [phone] intervertebral disc Social History Tobacco Use Types Packs/Day Years Used Date Former Smoker Cigarettes 1 9 Quit: 05/15/2013 Smokeless Tobacco: Never Used Alcohol Use Drinks/Week oz/Week Comments No 0 Standard 0.0 drinks or equivalent Sex Assigned at Date Recorded Not on file as of this encounter Last Filed Vital Signs Vital Sign Reading Time Taken Blood Pressure 128/100 06/02/2017 12:32 PM [employer] Pulse 65 06/02/2017 11:38 AM [employer] Temperature 36.4 C (97.5 F) 06/02/2017 11:38 AM [employer] Respiratory Rate 18 06/02/2017 11:38 AM [employer] Oxygen Saturation 97% 06/02/2017 12:32 PM [employer] Inhaled Oxygen - - Concentration Weight 94.8 kg (209 lb) 06/02/2017 11:38 AM [employer] Height 170.2 cm (5' 7") 06/02/2017 11:38 AM [employer] Body Mass Index 32.73 06/02/2017 11:38 AM [employer] in this encounter Functional Status Functional Status Response [...] impairment: No 03/24/2017 as of this encounter Instructions * Patient Instructions - Juliann Ngo RN - 06/02/2017 11:00 AM [employer] Procedure Completed Today: Lumbar Transforaminal Steroid Injection Important information following your procedure today: You may drive today 1. Pain relief may not be immediate. It is possible you may even experience an increase in pain during the first 24-48 hours followed by a gradual decrease of your pain. 2. Though the procedure is generally safe and complications are rare, we do ask that you be aware of any of the following: ? Any swelling, persistent redness, new bleeding, or drainage from the site of the injection. ? You should not experience a severe headache. ? You should not run a fever over 101 F. ? New onset of sharp, severe back & or neck pain. ? New onset of upper or lower extremity numbness or weakness. ? New difficulty controlling bowel or bladder function after the injection. ? New shortness of breath. If any of these occur, please call to report this occurrence to a nurse at . If you are calling after 4:00 p.m., on weekends or holidays please call [phone] and ask to have the resident physician jury consultant for the physician paged or go to your local emergency room. 3. You may experience soreness at the injection site. Ice can be applied at 20 minute intervals. Avoid application of direct heat, hot showers or hot tubs today. 4. Avoid strenuous activity today. You may resume your regular activities and exercise tomorrow. 5. Patients with diabetes may see an elevation in blood sugars for 7-10 days after the injection. It is important to pay close attention to your diet, check your blood sugars daily and report extreme elevations to the physician that treats your diabetes. 6. Patients taking a daily blood thinner can resume their regular dose this evening. 7. It is important that you take all medications ordered by your pain physician. Taking medication as ordered is an important part of your pain care plan. If you cannot continue the medication plan, please notify the physician. Possible side effects to steroids that may occur: ? Flushing or redness of the face ? Irritability ? Fluid retention ? Change in womens menses The following medications were used: Depomedrol and Contrast Dye in this encounter Progress Notes * Brian Salcedo MD - 06/02/2017 11:00 AM [employer] Formatting of this note may be different from the original. [facility] INTERVENTIONAL PAIN PROCEDURE HISTORY AND PHYSICAL Chief Complaint Patient presents with Lower Back - Pain HISTORY OF PRESENT ILLNESS: Mrs. Middleton presents today with LBP. She has radicular pain as well. She has had good pain relief with bilateral L4-5 TFESI in the past. She is a patient of Dr. Cheney but arrived late for her appointment after the procedure block ended. Therefore, Saycristy asked me to perform the procedure in his stead for patient convenience. At this point her pain is primarily in the right leg in the L4 and L5 distribution. She denies any new symptoms. Patient denies fevers, chills, infection, bleeding issues, anticoagulants, new muscle weakness, numbness, tingling, bowel/bladder incontinence, or saddle anesthesia. Past Medical History: Diagnosis Date Acid reflux Anxiety Arthritis Back pain CAD (coronary artery disease) Cataract Depression Dyslipidemia 02/17/2016 Dyspnea on exertion 02/17/2016 Edema Fracture Heart attack Heart disease [place] (hard of hearing) Hx of tobacco use, presenting hazards to health 02/17/2016 Stopped 2013 Hypertension goal BP (blood pressure) < 130/80 02/17/2016 Incontinence Myocardial infarction 2007 Overweight 02/17/2016 Psychiatric illness anxiety, depression Recurrent infections Past Surgical History: Procedure Laterality Date TUBAL LIGATION 1975 APPENDECTOMY 1979 HX CHOLECYSTECTOMY 1979 HIP SURGERY Bilateral 2007 HX HEART CATHETERIZATION 2008 with stent placement HX HEART CATHETERIZATION 2009 with stent placement WI REVJ TOT HIP ARTHRP BTH W/WO AGRFT/ALGRFT Right 03/02/2016 RIGHT TOTAL HIP REVISION ARTHROPLASTY performed by Sedrick Mei MD at [facility] ESOPHAGEAL DILATATION family history includes Diabetes in her mother. Social History Social History Marital status: Spouse name: N/A Number of children: N/A Years of education: N/A Occupational History Not on file. Social History Main Topics Smoking status: Former Smoker Packs/day: 1.00 Years: 9.00 Types: Cigarettes Quit date: 05/15/2013 Smokeless tobacco: Never Used Alcohol use No Drug use: No Sexual activity: Not on file Other Topics Concern Not on file Social History Narrative No Known Allergies Vitals: 06/02/17 1138 06/02/17 1144 BP: 137/82 129/81 Pulse: 65 Resp: 18 Temp: 36.4 C (97.5 F) TempSrc: Oral SpO2: 96% Weight: 94.8 kg (209 lb) Height: 170.2 cm (67") REVIEW OF SYSTEMS: 10 point ROS obtained and negative except per HPI PHYSICAL EXAM: Gen: Alert x 3 Chest: CTAB Neck:Supple Psych: Normal mood and affect Skin: no rashes or lesions Neuro: Grossly intact Musc: Tenderness in L-spine IMPRESSION: 1. Lumbar radiculopathy 2. Left lumbosacral radiculopathy [facility] INJECT SNRB/TFESI LUMBAR/SACRAL iopamidol IT 200 (ISOVUE-M 200) injection 2.5 mL dexamethasone PF (DECADRON) injection 15 mg 3. Degeneration of lumbar or lumbosacral intervertebral disc iopamidol IT 200 ( ISOVUE-M 200) injection 2.5 mL dexamethasone PF (DECADRON) injection 15 mg PLAN: Lumbar Transforaminal Steroid Injection Right L4-5 and L5-S1 TFESI in this encounter Procedure Notes * Brian Salcedo MD - 06/02/2017 11:00 AM PROF[employer] Associated Order(s): [facility] SP[facility] INJECT SNRB/TFESI LUMBAR/SACRAL Pre-Procedure Diagnose(s): Left lumbosacral radiculopathy Post-Procedure Diagnose(s): Left lumbosacral radiculopathy Formatting of this note may be different from the original. Attending Surgeon: Brian Salcedo MD Anesthesia: Local Pre-Procedure Diagnosis: 1. Lumbar radiculopathy 2. Left lumbosacral radiculopathy 3. Degeneration of lumbar or lumbosacral intervertebral disc Post-Procedure Diagnosis: 1. Lumbar radiculopathy 2. Left lumbosacral radiculopathy 3. Degeneration of lumbar or lumbosacral intervertebral disc [facility] INJECT SNRB/TFESI LUMBAR/SACRAL Procedure: transforaminal epidural Laterality: right Location: lumbar - L4-5 and L5-S1 Consent: Consent obtained: written Consent given by: patient Risks discussed: allergic reaction, bleeding, bruising, infection, nerve damage , no change or worsening in pain, reaction to medication, seizure, swelling and weakness Alternatives discussed: alternative treatment, delayed treatment and no treatment [place] Protocol: Relevant documents: relevant documents present and verified Site marked: the operative site was marked Patient identity confirmed: Patient identify confirmed verbally with patient. Time out: Immediately prior to procedure a "time out" was called to verify the correct patient, procedure, equipment, help desk support and site/side marked as required Procedures Details: [...] Quincke needle was advanced toward the 6 oclock position of the pedicle at each above-named [...] The patient was discharged in stable condition. Estimated blood loss: none or minimal Specimens: none Patient tolerated the procedure well with no immediate complications. Pressure was applied, and hemostasis was accomplished. in this encounter Plan of Treatment Not on fileas of this encounter Procedures Procedure Name Priority Date/Time Associated Diagnosis Comments [place] AMAURY ANES&/STRD W/IMG Routine 06/02/2017 Left lumbosacral Results for this TFRML EDRL LMBR/SAC EA LV 12:53 PM PROF[employer] radiculopathy procedure are in the results section. [place] AMAURY ANES&/STRD W/IMG Routine 06/02/2017 Left lumbosacral Results for this TFRML EDRL LMBR/SAC 1 LVL 12:53 PM PROF[employer] radiculopathy procedure are in the results section. in this encounter Results * [facility] SPINE [...] alternative treatment, delayed treatment and no treatment [place] Protocol: Relevant documents: relevant documents present and verified Site marked: the operative site was marked Patient identity confirmed: Patient identify confirmed verbally with patient. Time out: Immediately prior to procedure a "time out" was called to verify the correct patient, procedure, equipment, help desk support and site/side marked as required Procedures Details: [...] condition. in this encounter Visit Diagnoses Diagnosis Lumbar radiculopathy - Primary Thoracic or lumbosacral neuritis or radiculitis, unspecified Left lumbosacral radiculopathy Thoracic or lumbosacral neuritis or radiculitis, unspecified Degeneration of lumbar or lumbosacral intervertebral disc Administered Medications Medication Order MAR Action Action Date Dose Rate Site dexamethasone PF (DECADRON) injection 15 Given 06/02/2017 15 mg mg 12:06 [employer] 15 mg, Injection, ONCE, 1 dose, Mon06/02/17 at 1200, Preservative Free iopamidol IT 200 (ISOVUE-M 200) Given 06/02/2017 2.5 mL injection 2.5 mL 12:06 [employer] 2.5 mL, Epidural, ONCE, 1 dose, Mon06/02/17 at 1200, NOTE: This is a HIGH ALERT Medication. in this encounter
--- OUTSIDE RECORDS SUMMARY | 2017-06-16 13:57 | XMS REPORT | Encounter Summary ---
Author Author [facility] Organization [facility] Address Unknown Phone Unavailable Care Team Providers Care Utility Worker Name Role Phone Sedrick Mei MD Unavailable Unavailable Ray Serna MD PCP Encounter Details Date Type Department Care Team Description 03/24/2017 [facility] Salvador Cheney MD Low back pain, Orders Pain Procedure [address] unspecified back pain [address] laterality, unspecified [place] [address] chronicity, with sciatica COMPREHENSIVE SPN CNTR [phone] [place] [address] [phone] Social History Tobacco Use Types Packs/Day Years [...] on fileas of this encounter Visit Diagnoses Diagnosis Low back pain, unspecified back pain laterality, unspecified chronicity, with sciatica presence unspecified
--- OUTSIDE RECORDS SUMMARY | 2017-06-16 13:57 | XMS REPORT | Encounter Summary ---
Author Author [facility] Organization [facility] Address Unknown Phone Unavailable Care Team Providers Care Insulation Worker Interior Surface Name Role Phone Sedrick Mei MD Unavailable Unavailable Ray Serna MD PCP Encounter Details Date Type Department Care Team Description 04/12/2017 [facility] Salvador Cheney MD Encounter [facility] [address] [place] [address] [place] [address] [phone] Social History Tobacco Use Types Packs/Day Years [...] topical affected area every 12 cream hours. nitrofurantoin Take 100 mg by mouth 06/02/2017 monohyd/m-cryst every 12 hours. Take with (MACROBID) 100 mg capsule food. as of this encounter Plan of Treatment Not on fileas of this encounter Results * [facility]O GUIDANCE FOR SPINE INJ RAD (04/12/2017 10:28 AM) Specimen Performing Laboratory [facility] Narrative This order has been auto finalized and does not contain a result. in this encounter Visit Diagnoses Diagnosis Pain Generalized pain
--- OUTSIDE RECORDS SUMMARY | 2017-06-16 13:57 | XMS REPORT | Encounter Summary ---
Author Author [facility] Organization [facility] Address Unknown Phone Unavailable Care Team Providers Care Pig Machine Operator Helper Name Role Phone Sedrick Mei MD Unavailable Unavailable Ray Serna MD PCP Encounter Details Date Type Department Care Team Description 06/02/2017 [facility] Brian Salcedo MD Lumbar radiculopathy Orders Pain Procedure [address] [place] [address] COMPREHENSIVE SPN CNTR [phone] [place] [address] [phone] Social History Tobacco Use Types Packs/Day Years [...] FOR SPINE INJ RAD (06/02/2017 12:15 PM) Specimen Performing Laboratory [facility] Narrative This order has been auto finalized and does not contain a result. in this encounter Visit Diagnoses Diagnosis Lumbar radiculopathy Thoracic or lumbosacral neuritis or radiculitis, unspecified
--- OUTSIDE RECORDS SUMMARY | 2017-06-16 13:57 | XMS REPORT | Encounter Summary ---
Author Author [facility] Organization [facility] Address Unknown Phone Unavailable Care Team Providers Care Link And Link Knitting Machine Operator Name Role Phone Sedrick Mei MD Unavailable Unavailable Ray Serna MD PCP Reason for Visit * Reason Comments Pain * Pain Authorization Status Reason Specialty Diagnoses / Referred By Referred To Procedures Contact Contact Closed Anesthesia Pain Diagnoses [facility] Pain Proc Lumbar Valencia L, [address] radiculopathy SPEECH AND LANGUAGE TUTOR-ACID MAKER PARTH MARTINEZ P [address] [facility] [place], [place] INJECT INTERLAM [phone] LMBR/SAC Phone: Fax: Encounter Details Date Type Department Care Team Description 04/12/2017 Procedure visit [facility] Salvador Cheney MD Lumbosacral radiculopathy Management Procedure [address] due to intervertebral [address] [place] [address] disc disorder ([place] [address] [place] [address] Dx) [phone] Social History Tobacco Use Types Packs/Day Years Used Date Former Smoker Cigarettes 1 9 Quit: 05/15/2013 Smokeless Tobacco: Never Used Alcohol Use Drinks/Week oz/Week Comments No 0 Standard 0.0 drinks or equivalent Sex Assigned at Date Recorded Not on file as of this encounter Last Filed Vital Signs Vital Sign Reading Time Taken Blood Pressure 147/97 04/12/2017 10:47 AM EMERGENCY COMMUNICATIONS DISPATCHER Pulse 60 04/12/2017 10:35 AM EMERGENCY COMMUNICATIONS DISPATCHER Temperature 37.2 C (98.9 F) 04/12/2017 9:48 AM EMERGENCY COMMUNICATIONS DISPATCHER Respiratory Rate 16 04/12/2017 9:48 AM EMERGENCY COMMUNICATIONS DISPATCHER Oxygen Saturation 96% 04/12/2017 10:47 AM EMERGENCY COMMUNICATIONS DISPATCHER Inhaled Oxygen - - Concentration Weight 97.1 kg (214 lb) 04/12/2017 9:48 AM EMERGENCY COMMUNICATIONS DISPATCHER Height 160 cm (5' 3") 04/12/2017 9:48 AM EMERGENCY COMMUNICATIONS DISPATCHER Body Mass Index 37.91 04/12/2017 9:48 AM EMERGENCY COMMUNICATIONS DISPATCHER in this encounter Functional Status Functional Status [...] this encounter Instructions * Patient Instructions - Sejal Brice RN - 04/12/2017 10:00 AM EMERGENCY COMMUNICATIONS DISPATCHER Procedure Completed Today: Lumbar Transforaminal Steroid Injection [...] be aware of any of the following: Any swelling, persistent redness, new bleeding, or drainage from the site of the injection. You should not experience a severe headache. You should not run a fever over 101 F. New onset of sharp, severe back & or neck pain. New onset of upper or lower extremity numbness or weakness. New difficulty controlling bowel or bladder function after the injection. New shortness of breath. If any of these occur, please call to report this occurrence to a nurse at [phone]. If you are calling after 4:00 p.m., on weekends or holidays please call [phone] and ask to have the resident physician buttonhole maker for the physician paged or go to [...] side effects to steroids that may occur: Flushing or redness of the face Irritability Fluid retention Change in womens menses The following medications were used: Depomedrol and Contrast Dye in this encounter Progress Notes * Orlin Diego RN - 04/12/2017 10:00 AM EMERGENCY COMMUNICATIONS DISPATCHER Discharge instructions given. No questions. Pt requesting discharge. * Salvador Cheney MD - 04/12/2017 10:00 AM EMERGENCY COMMUNICATIONS DISPATCHER Formatting of this note may be different from the original. [facility] INTERVENTIONAL PAIN PROCEDURE HISTORY AND PHYSICAL Chief Complaint Patient presents with Lower Back - Pain HISTORY OF PRESENT ILLNESS: Nico Is a pleasant 61-year-old female that was referred by her PCP, Dr. Ray Serna in [place], [place] to the [facility] for epidural [facility] injections. The pt presents with her granddaughter whom is her primary health care technician. Pt has had bilateral total hip replacements. She had the right total hip replaced for a second time 12/2015 and sometime thereafter developed right foot drop. She has completed formal physical therapy with minimal improvement of her right foot drop and pain in her low back and right leg. She rates the low back pain as 5/10 and right leg pain as 8/10. She describes the pain as stabbing, tiring, nagging, shooting, burning, throbbing, sharp and unbearable. Intermittent tingling of BLE. Denies weakness of BLE. Numbness and decreased sensation down right leg. Requires a walker for ambulation and often leans over walker for pain relief. She sometimes has bladder incontinence. She can only lift light weights. The pain prevents her from sitting for greater than thirty minutes. The pain interferes with her obtinaing greater than four hours of sleep, managing personal care, standing greater than 10 minutes and traveling for greater than two hours. She is taking Oxycodone 5mg once daily with about 4 hours of pain relief. Ibuprofen provides minimal short-lived pain relief. Failed trial of gabapentin and lyrica. Per pt and her granddaugther lyrica caused restlessness and jerking of BLE. Past Medical History: Diagnosis Date Acid reflux Anxiety Arthritis Back pain CAD (coronary artery disease) Cataract Depression Dyslipidemia 02/17/2016 Dyspnea on exertion 02/17/2016 Edema Fracture Heart attack Heart disease MOAPA (hard of hearing) Hx of tobacco use, presenting hazards to health 02/17/2016 Stopped 2013 Hypertension goal BP (blood pressure) < 130/80 02/17/2016 Incontinence Myocardial infarction 2008 Overweight 02/17/2016 Psychiatric illness anxiety, depression Recurrent infections Past Surgical History: Procedure Laterality Date TUBAL LIGATION 1975 APPENDECTOMY 1979 HX CHOLECYSTECTOMY 1979 HIP SURGERY Bilateral 2007 HX HEART CATHETERIZATION 2008 with stent placement HX HEART CATHETERIZATION 2009 with stent placement CA REVJ TOT HIP ARTHRP BT W/WO AGRFT/ALGRFT Right 03/02/2016 RIGHT TOTAL HIP [...] Not on file Social History Narrative No Active Allergies Vitals: 04/12/17 0948 04/12/17 0953 BP: (!) 164/99 (!) 147/93 Pulse: 56 Resp: 16 Temp: 37.2 C (98.9 F) TempSrc: Oral SpO2: 95% Weight: 97.1 kg (214 lb) Height: 160 cm (63") REVIEW OF SYSTEMS: 10 point ROS obtained and negative except per HPI PHYSICAL EXAM: Gen: Alert x 3 Chest: CTAB Neck:Supple Psych: Normal mood and affect Skin: no rashes or lesions Neuro: Grossly intact Musc: Tenderness in L-spine IMPRESSION: 1. Lumbosacral radiculopathy due to intervertebral disc disorder PLAN: Lumbar Transforaminal Steroid Injection * Feliz Babcock RN - 04/12/2017 10:00 AM EMERGENCY COMMUNICATIONS DISPATCHER Pain Procedure Plan Of Care Risk of injury related to procedure Patient identification, allergies verified, fall precautions implemented Risk of injury and impaired skin integrity Positioning devices applied as appropriate for procedure, patient transported with staff assistance Management of Pain Pain assessment completed on arrival, PAR scoring following procedure and at discharge, sedation administered as ordered, patient positioned for comfort Risk of anxiety related to procedure and disease process Patient education on procedure and expectations, provide coping support to patient, provide relaxation techniques Outcomes: The patient is free of injury during and following their procedure. Skin is intact and free of bruising. The patients pain is managed during their stay. Alleviation of patient anxiety exhibited. in this encounter Procedure Notes * Salvador Cheney MD - 04/12/2017 10:00 AM EMERGENCY COMMUNICATIONS DISPATCHER Associated Order(s): [facility] INJECT SNRB/TFESI LUMBAR/SACRAL Post-Procedure Diagnose(s): Lumbosacral radiculopathy due to intervertebral disc disorder Formatting of this note may be different from the original. Attending Surgeon: Salvador Cheney MD Anesthesia: Local Pre-Procedure Diagnosis: 1. Lumbosacral radiculopathy due to intervertebral disc disorder Post-Procedure Diagnosis: 1. Lumbosacral radiculopathy due to intervertebral disc disorder SNR/TF LMBR/SAC Procedure: transforaminal epidural Laterality: bilateral Location: lumbar - L4-5 Consent: Consent obtained: verbal and written Consent given by: patient Risks discussed: allergic reaction, bleeding, bruising, infection, nerve damage , no change or worsening in pain, weakness, swelling and reaction to medication Alternatives discussed: alternative treatment and delayed treatment Discussed with patient the purpose of the treatment/procedure, other ways of treating my condition, including no treatment/ procedure and the risks and benefits of the alternatives. Patient has decided to proceed with treatment/ procedure. [place] Protocol: Relevant documents: relevant documents present and [...] to verify the correct patient, procedure, equipment, windows server support technician and site/side marked as required Procedures Details: [...] of normal saline injected at each level Estimated blood loss: none or minimal Specimens: none Patient tolerated the procedure well with no immediate complications. Pressure was applied, and hemostasis was accomplished. in this encounter Plan of Treatment Not on fileas of this encounter Procedures Procedure Name Priority Date/Time Associated Diagnosis Comments CA RPB BILATERAL HALL MANAGER Routine 04/12/2017 Lumbosacral radiculopathy Results for this REVIEW 10:36 AM EMERGENCY COMMUNICATIONS DISPATCHER due to intervertebral procedure are in the disc disorder results section. CA NJX ANES&/STRD W/IMG Routine 04/12/2017 Lumbosacral radiculopathy Results for this TFRML EDRL LMBR/SAC 1 LVL 10:36 AM EMERGENCY COMMUNICATIONS DISPATCHER due to intervertebral procedure are in the disc disorder results section. in this encounter Results * [...] Patient has decided to proceed with treatment/procedure. [place] Protocol: Relevant documents: relevant documents present and [...] to verify the correct patient, procedure, equipment, windows server support technician and site/side marked as required Procedures Details: [...] of normal saline injected at each level in this encounter Visit Diagnoses Diagnosis Lumbosacral radiculopathy due to intervertebral disc disorder - Primary Thoracic or lumbosacral neuritis or radiculitis, unspecified Administered Medications Medication Order MAR Action Action Date Dose Rate Site iopamidol IT 200 (ISOVUE-M 200) Given 04/12/2017 2.5 mL injection 2.5 mL 10:25 EMERGENCY COMMUNICATIONS DISPATCHER 2.5 mL, Epidural, ONCE, 1 dose, Mon04/12/17 at 1030, NOTE: This is a HIGH ALERT Medication. methylprednisolone acetate (DEPO-MEDROL) Given 04/12/2017 80 mg injection 80 mg 10:25 EMERGENCY COMMUNICATIONS DISPATCHER 80 mg, Injection, ONCE, 1 dose, Mon04/12/17 at 1030 METHYLPREDNISOLONE ACETATE 80 MG/ML IJ SUSP (Cabinet Override) NOW, 1 dose, Mon04/12/17 at 1030, Created by cabinet override
--- OUTSIDE RECORDS SUMMARY | 2017-06-16 13:57 | XMS REPORT | Encounter Summary ---
Author Author [facility] Organization [facility] Address Unknown Phone Unavailable Care Team Providers Care Software Testing Specialist Name Role Phone Sedrick Mei MD Unavailable Unavailable Ray Serna MD PCP Encounter Details Date Type Department Care Team Description 06/02/2017 [facility] Anesthesia Brian Salcedo MD Orders Pain Clinic [address] [place] [address] [facility] [phone] [place] [address] [phone] Social History Tobacco Use Types Packs/Day Years [...]
--- OUTSIDE RECORDS SUMMARY | 2017-06-16 13:57 | XMS REPORT | Encounter Summary ---
Author Author [facility] Organization [facility] Address Unknown Phone Unavailable Care Team Providers Care Equipment Maint Tech Name Role Phone Sedrick Mei MD Unavailable Unavailable Ray Serna MD PCP Encounter Details Date Type Department Care Team Description 04/12/2017 [facility] [place] [facility] StasedSalvador MD Pain Orders Management Procedure [address] [place] [address] [place] [address] [phone] Social History Tobacco Use Types Packs/Day Years [...]
--- OUTSIDE RECORDS SUMMARY | 2017-06-16 13:57 | XMS REPORT | Encounter Summary ---
Author Author [facility] Organization [facility] Address Unknown Phone Unavailable Care Team Providers Care Credit Administration Specialist Name Role Phone Sedrick Mei MD Unavailable Unavailable Ray Serna MD PCP Encounter Details Date Type Department Care Team Description 03/24/2017 [facility] Salvador Cheney MD Canceled (Other) Encounter Hospital Radiology [address] [place] [address] [facility] [phone] [place] [address] [phone] Social History Tobacco Use Types Packs/Day Years [...]
--- OUTSIDE RECORDS SUMMARY | 2017-06-16 13:58 | XMS REPORT | Encounter Summary ---
Author Author [facility] Organization [facility] Address Unknown Phone Unavailable Care Team Providers Care Machine Shop Worker Name Role Phone Sedrick Mei MD Unavailable Unavailable Ray Serna MD PCP Reason for Visit * Reason Comments Pain * Pain Authorization Status Reason Specialty Diagnoses / Referred By Referred To Procedures Contact Contact Closed Anesthesia Pain Diagnoses [facility] Pain Proc Lumbar Valencia L, [address] radiculopathy OTOLARYNGOLOGY REP-KICKING MACHINE OPERATOR PARTH MARTINEZ P [address] CNTR [facility] [place], [place] INJECT INTERLAM [phone] LMBR/SAC Phone: Fax: Encounter Details Date Type Department Care Team Description 03/24/2017 Procedure visit [facility] Anesthesia Salvador Cheney MD Degeneration of lumbar or Pain Procedure [address] lumbosacral [address] intervertebral [place] [address] (Primary Dx); COMPREHENSIVE SPN CNTR [phone] [place] [address] [phone] Social History Tobacco Use Types Packs/Day Years Used Date Former Smoker Cigarettes 1 9 Quit: 05/15/2013 Smokeless Tobacco: Never Used Alcohol Use Drinks/Week oz/Week Comments No 0 Standard 0.0 drinks or equivalent Sex Assigned at Date Recorded Not on file as of this encounter Last Filed Vital Signs Vital Sign Reading Time Taken Blood Pressure 158/91 03/24/2017 11:23 AM BOX SEALING MACHINE FEEDER Pulse 108 03/24/2017 11:23 AM BOX SEALING MACHINE FEEDER Temperature 36.4 C (97.5 F) 03/24/2017 11:23 AM BOX SEALING MACHINE FEEDER Respiratory Rate 16 03/24/2017 11:23 AM BOX SEALING MACHINE FEEDER Oxygen Saturation 99% 03/24/2017 11:23 AM BOX SEALING MACHINE FEEDER Inhaled Oxygen - - Concentration Weight 98.9 kg (218 lb) 03/24/2017 11:23 AM BOX SEALING MACHINE FEEDER Height 170.2 cm (5' 7") 03/24/2017 11:23 AM BOX SEALING MACHINE FEEDER Body Mass Index 34.14 03/24/2017 11:23 AM BOX SEALING MACHINE FEEDER in this encounter Functional Status Functional Status [...] this encounter Instructions * Patient Instructions - Sunita Fragoso RN - 03/24/2017 11:45 AM BOX SEALING MACHINE FEEDER Procedure Completed Today: Lumbar Transforaminal Steroid Injection [...] report this occurrence to a nurse at [phone]. If you are calling after 4:00 p.m., on weekends or holidays please call [phone] and ask to have the resident physician credit collection specialist for the physician paged or go to [...] womens menses The following medications were used: Others No procedure today in this encounter Plan of Treatment Not on fileas of this encounter Visit Diagnoses Diagnosis Degeneration of lumbar or lumbosacral intervertebral disc - Primary Lumbar radiculopathy Thoracic or lumbosacral neuritis or radiculitis, unspecified
--- OUTSIDE RECORDS SUMMARY | 2017-06-16 13:58 | XMS REPORT | Summary of Care ---
Author Author Dimitris Alejandra, Tarik Stephens Organization Unknown Address [address] [place], [place] [id number] Phone Unavailable Care Team Providers Care Forge Operator Name Role Phone Dimitris Alejandra, Tarik Stephens Unavailable Unavailable Merritt Alejandra, Marla Italia Unavailable Unavailable Bella Alejandra, Donnie Unavailable Unavailable Sydnee Alejandra, Yaniv Stephens Unavailable Unavailable Angelo Shanks PP Unavailable Unavailable Unavailable Functional Status Functional Status Health Issues* Name Dates Details Functional status health issues are not documented Status: Cognitive Status Health Issues* Name Dates Details Cognitive status health issues are not documented Status: Problems Name Dates Details Polymyalgia rheumatica (725, M35.3) Status: Active Lower back pain (724.2, M54.5) Status: Active Anxiety (300.00, F41.9) Status: Active Hypokalemia (276.8, E87.6) Status: Active Fibromyalgia (729.1, M79.7) Status: Active Insomnia (780.52, G47.00) Status: Active Allergic rhinitis (477.9, J30.9) Status: Active Edema (782.3, R60.9) Status: Active Psoriasis (696.1, L40.9) Status: Active Hyperlipidemia (272.4, E78.5) Status: Active Nicotine dependence (305.1, F17.200) Status: Active Peripheral vascular disease (443.9, I73.9) Status: Active Esophageal stenosis (530.3, K22.2) Status: Active Right hip pain (719.45, M25.551) Status: Active Eczema (692.9, L30.9) Status: Active Arteriosclerotic heart disease (ASHD) (414.00, I25.10) Status: Active Chronic obstructive pulmonary disease (496, J44.9) Status: Active Depression (311, F32.9) Status: Active Hypertension (401.9, I10) Status: Active Osteoarthritis (715.90, M19.90) Status: Active Obesity (278.00, E66.9) Status: Active Reflux esophagitis (530.11, K21.0) Status: Active Peripheral neuropathy (356.9, G62.9) Status: Active Right hip pain (719.45, M25.551) Status: Active Medications Name Dates Details DULoxetine HCl - 60 MG Oral Capsule Delayed Release Particles TAKE 2 CAPSULES BY MOUTH EVERY DAY Quantity: 60 Angelo Shanks M.D.* Started 13-Jul-2009 ActiveSingulair 10 MG Oral Tablet take one tablet by mouth every day * Quantity: 30 Refills: 2 Angelo Shanks M.D.* Started 06-Apr-2009 ActiveAspirin 81 MG Oral Tablet TAKE 1 TABLET DAILY. * Refills: 0 Angelo Randhawa M.D.* Started 04-Jan-2008 ActiveClopidogrel Bisulfate 75 MG Oral Tablet take one tablet by mouth every day * Quantity: 30 Refills: 5 Angelo Randhawa M.D.* Started ActiveCetirizine HCl - 10 MG Oral Tablet TAKE 1 TABLET BY MOUTH DAILY * Quantity: 30 Refills: 0 Angelo Shanks M.D.* Started 06-Apr-2009 ActiveProAir HFA 108 (90 Base) MCG/ACT Inhalation Aerosol Solution TAKE TWO PUFFS BY MOUTH EVERY 4 HOURS NEEDED * Quantity: 8.5 Refills: 0 Angelo Shanks M.D.* Started 04-May-2009 ActiveLoratadine 10 MG Oral Tablet take one tablet by mouth every day * Quantity: 30 Refills: 0 Angelo Shanks M.D.* Started 13-Jul-2009 ActiveFurosemide 80 MG Oral Tablet take one tablet by mouth every day * Quantity: 30 Refills: 5 Angelo Shanks M.D.* Started 16-Feb-2010 ActiveZetia 10 MG Oral Tablet take one tablet by mouth every day * Quantity: 30 Refills: 0 Angelo Shanks M.D.* Started 30-Mar-2010 ActivePotassium Chloride Misti ER 10 MEQ Oral Tablet Extended Release take 4 tablets by mouth twice daily * Quantity: 240 Refills: 5 Angelo Shanks M.D.* Started 20-Sep-2010 ActiveRanitidine HCl - 300 MG Oral Tablet Take 1 tablet at night * Quantity: 30 Refills: 4 Italia Bang M.D.* Started 18-Jan-2011 ActiveHydrocodone-Acetaminophen 10-325 MG Oral Tablet TAKE ONE TABLET BY MOUTH EVERY 4 TO 6 HOURS NEEDEDMAX 5 PER DAY*MAY FILL ON OR AFTER 05/28/14* * Quantity: 150 Refills: 0 Donnie Blanco M.D.* Started 28-Jan-2011 ActiveTriamcinolone Acetonide 55 MCG/ACT INHA USE ONE SPRAY IN EACH NOSTRIL EVERY DAY * Quantity: 16.5 Refills: 0 Angelo Shanks M.D.* Started 02-Feb-2011 ActiveLisinopril 10 MG Oral Tablet take 1 tablet by mouth every day * Quantity: 30 Refills: 11 Angelo Randhawa M.D.* Started 11-Feb-2011 ActiveALPRAZolam 1 MG Oral Tablet TAKE 1 TABLET BY MOUTH FOUR TIMES DAILY NEEDED FOR ANXIETY * Quantity: 120 Refills: 0 Angelo Shanks M.D.* Started 30-Sep-2011 ActiveGabapentin 300 MG Oral Capsule TAKE ONE CAPSULE BY MOUTH TWICE DAILY * Quantity: 60 Refills: 0 Angelo Shanks M.D.* Started 01-Jun-2012 ActiveZolpidem Tartrate 10 MG Oral Tablet TAKE 1 TABLET BY MOUTH EVERY DAY AT BEDTIME NEEDED * Quantity: 30 Refills: 2 Angelo Shanks M.D.* Started 30-Jul-2012 ActiveOxyCONTIN 20 MG Oral Tablet ER 12 Hour Abuse-Deterrent TAKE 1 TABLET Q 12HRSMUST LAST 30 DAYS*MAY FILL ON OR AFTER 05/28/14* * Quantity: 60 Refills: 0 Donnie Blanco M.D.* Started 13-Jun-2013 ActiveVoltaren 1 % Transdermal Gel APPLY TO AREA, 4 GM OF GEL TO AFFECTED AREA TWICE DAILY. DO NOT APPLY MORE THAN 16 GM DAILY TO ANY ONE AFFECTED JOINT. * Quantity: 1 Refills: 3 Donnie Blanco M.D.* Started 23-Jul-2013 Grhiop784 GM Tube Phentermine HCl - 37.5 MG Oral Tablet TAKE 1 TABLET DAILY. * Quantity: 30 Refills: 0 Angelo Shanks M.D.* Started 23-Jul-2013 ActivePantoprazole Sodium 40 MG Oral Tablet Delayed Release TAKE 1 TABLET BY MOUTH 30 MINUTES BEFORE BREAKFAST DAILY * Quantity: 30 Refills: 11 Italia Bang M.D.* Started 08-Aug-2013 ActiveMeloxicam 15 MG Oral Tablet TAKE 1 TABLET BY MOUTH EVERY DAY WITH FOOD * Quantity: 30 Refills: 0 Donnie Blanco M.D.* Started 19-Aug-2013 ActiveLyrica 150 MG Oral Capsule TAKE 1 CAPSULE BY MOUTH THREE TIMES DAILY * Quantity: 90 Refills: 2 Angelo Shanks M.D.* Started 17-Sep-2013 ActiveAtenolol 50 MG Oral Tablet TAKE 1 TABLET BY MOUTH TWICE DAILY * Quantity: 30 Refills: 5 Angelo Shanks M.D.* Started 23-Sep-2013 ActiveTriamcinolone Acetonide 0.1 % External Cream APPLY A SMALL AMOUNT TO THE AFFECTED AREAS 3 TIMES DAILY * Quantity: 45 Refills: 0 Angelo Shanks M.D.* Started ActiveAtorvastatin Calcium 80 MG Oral Tablet TAKE 1 TABLET BY MOUTH EVERY NIGHT AT BEDTIME * Quantity: 30 Refills: 6 Angelo Randhawa M.D.* Started 23-Jan-2014 ActiveClobetasol Propionate 0.05 % External Shampoo SHAMPOO HAIR/SCALP, LEAVE ON FOR 15 MINUTES AND RINSE WELL. USE DAILYFOR 4 WEEKS * Quantity: 118 Refills: 11 Angelo Shanks M.D.* Started 25-Mar-2014 ActiveTriamcinolone Acetonide 55 MCG/ACT Nasal Aerosol USE ONE SPRAY IN EACH NOSTRIL EVERY DAY * Quantity: 16.5 Refills: 2 Angelo Shanks M.D.* Started 19-May-2014 Active Allergies and Adverse Reactions Name Dates Details No Known Drug Allergies Status: Active Eggs Status: Active Milk (cow's) Status: Active Past Medical History Name Dates Details History of Acute Myocardial Infarction (V12.59) Status: Resolved History of Arthropathy (716.90, M12.9) Status: Resolved History of Bowel incontinence (787.60, R15.9) Status: Resolved History of Difficulty swallowing (787.20, R13.10) Status: Resolved History of Dyspepsia (536.8, K30) Status: Resolved History of Dysuria (788.1, R30.0) Status: Resolved History of earache (V12.49, Z86.69) Status: Resolved History of edema (V13.89, Z87.898) Status: Resolved History of Erosive gastritis (535.40, K29.00) Status: Resolved History of Esophageal stricture (530.3, K22.2) Status: Resolved History of hematuria (V13.09, Z87.448) Status: Resolved History of hiatal hernia (V12.79, Z87.19) Status: Resolved History of hypotension (V12.59, Z86.79) Status: Resolved History of Idiopathic peripheral neuropathy (356.9, G60.9) Status: Resolved History of lentigo (V13.3, Z87.2) Status: Resolved History of onychomycosis (V12.09, Z86.19) Status: Resolved History of pancreatitis (V12.79, Z87.19) Status: Resolved History of pleural effusion (V12.69, Z87.09) Status: Resolved History of Postmenopausal status (V49.81, Z78.0) Status: Resolved History of Pre-operative cardiovascular examination (V72.81, Z01.810) Status: Resolved History of pulmonary edema (V12.69, Z87.09) Status: Resolved History of 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, K22.70) Status: Resolved History of Spontaneous ecchymosis (782.7, R23.3) Status: Resolved History of urinary incontinence (V13.09, Z87.448) Status: Resolved History of viral warts (V12.09, Z86.19) Status: Resolved Personal history of gout (V12.29, Z86.39) Status: Resolved Personal history of urinary tract infection (V13.02, Z87.440) Status: Resolved Procedures Procedure Dates Details History of Gastroscopy With Biopsy History of Upr GI Endosc W/ Balloon Dilation Of Esoph (Less Than 30 Mm) Completed:01-Oct-2010 History of Upr GI Endosc W/ Balloon Dilation Of Esoph (Less Than 30 Mm) Completed:18-Jan-2011 History of Hip Replacement History of Gallbladder Surgery History of Tubal Ligation History of Heart Surgery History of Upr GI Endosc W/ Balloon Dilation Of Esoph (Less Than 30 Mm) Completed:25-Jun-2012 History of Gastroscopy With Biopsy Completed:10-Apr-2013 History of Upr GI Endosc W/ Balloon Dilation Of Esoph (Less Than 30 Mm) History of Upr GI Endosc W/ Balloon Dilation Of Esoph (Less Than 30 Mm) Procedures not documented Immunization Name Dates Details Influenza Administered on:26-Jan-2009 Pneumo (Prevnar) Administered on:06-Mar-2009 Influenza A (H1N1) Monoval Vac Intramuscular Suspension Administered on:14-Mar-2009 Influenza Lot #: [id number] Administered on:18-Feb-2010 Influenza Administered on:11-Feb-2011 Influenza Administered on:01-Jun-2012 Fluzone Quadrivalent 0.5 ML Intramuscular Suspension Administered on:29-Mar-2013 Fluzone Quadrivalent 0.5 ML Intramuscular Suspension Administered on:26-Feb-2014 Family History Unknown Family Member* Name Dates Details Family history of Diabetes Mellitus (V18.0) Comments: Family History Status: Active Family history of Hypertension (V17.49) Comments: Family History Status: Active Mother* Name Dates Details Family history of Diabetes Mellitus (V18.0) Status: Active Social History Name Dates Details Smoking Status* Former smoker * Former smoker Vital Signs Date Test Result Details 16-Jun-2014 09:41 BP Systolic 154 mm[Hg] Status: BP Diastolic 76 mm[Hg] Status: Weight 235.2 lb Status: Body Mass Index Calculated 36.84 kg/m2 Status: Body Surface Area Calculated 2.17 m2 Status: Results Date Description Value Details 16-Jun-2014 10:26 CBC w/ Auto Diff 7150 Comments: Fastin hours WBC 7.3 K/uL (Better) Range: 4.5-11.0 RBC 4.76 mil/uL (Better) Range: 3.60-5.00 HGB 13.8 g/dL (Better) Range: 12.0-16.0 HCT 42.7 % (Better) Range: 36.0-48.0 MCV 89.8 fL (Better) Range: 80.0-99.0 MCH 29.0 pg (Better) Range: 27.3-32.5 MCHC 32.3 % (Better) Range: 32.0-36.0 RDW 14.0 % (Better) Range: 11.6-14.8 PLATELETS 284 K/uL (Better) Range: 150-400 MPV 7.2 fL (Better) Range: 6.0-11.0 %NEUTRO 49.2 % (Better) Range: 37.0-80.0 %LYMPHS 34.5 % (Better) Range: 13.0-50.0 %MONO 6.5 % (Better) Range: 0.0-12.0 %EOS 6.9 % (Better) Range: 0.0-7.0 %BASO 0.6 % (Better) Range: 0.0-2.5 %DUNG 2.2 % (Better) Range: 0.0-5.0 NEUTRO 3.6 K/uL (Better) Range: 2.0-6.9 LYMPHS 2.5 K/uL (Better) Range: 0.6-3.4 MONOS 0.5 K/uL (Better) Range: 0.0-0.9 EOS 0.5 K/uL (Better) Range: 0.0-0.7 BASO 0.0 K/uL (Better) Range: 0.0-0.2 10:32 Comprehensive Metabolic Panel 1212 Comments: Fastin hours SODIUM 142 mmol/L (Better) Range: 133-144 POTASSIUM 4.3 mmol/L (Better) Range: 3.5-5.1 CHLORIDE 109 mmol/L (Better) Range: 98-110 CARBON DIOXIDE 26.0 mmol/L (Better) Range: 23.0-33.0 ANION GAP 7 mmol/L (Better) Range: 6-16 BUN 17 mg/dL (Better) Range: 7-18 CREATININE, SERUM 1.23 mg/dL (Above high threshold) Range: 0.43-1.13 BUN:CREATININE RATIO 14 (Better) EST GFR, 54 ml/min (Below low threshold) Range: >60 EST GFR, NON-AFR LAO 45 ml/min (Below low threshold) Range: >60 Comments: EST GFR is reported in ml/min per 1.73 m2 of body surface area. For -Libyan, please multiple result by 1.2.----- GLUCOSE 91 mg/dL (Better) Range: 70-100 ALK PHOSPHATASE 114 U/L (Better) Range: 46-116 Comments: Please Note: New Reference Range effective 2013.----- TOTAL BILIRUBIN 0.40 mg/dL (Better) Range: 0.20-1.00 AST 16 U/L (Better) Range: 8-35 ALT 23 U/L (Better) Range: 12-78 ALBUMIN 3.5 g/dL (Better) Range: 3.4-5.0 TOTAL PROTEIN 7.1 g/dL (Better) Range: 6.4-8.2 A/G RATIO 1.0 units (Better) Range: 1.0-1.8 CALCIUM 9.0 mg/dL (Better) Range: 8.5-10.1 10:32 LIPID PROFILE 1184 Comments: Fastin hours CHOLESTEROL 126 mg/dL (Better) Range: <200 TRIGLYCERIDES 115 mg/dL (Better) Range: 30-200 HDL Cholesterol 48 mg/dL (Better) Range: >39 NON HDL CHOLESTEROL 78 (Better) CARDIAC RSK FACTOR 2.6 units (Below low threshold) Range: 4.4-5.0 LDL - CALCULATED 55 mg/dL (Better) Range: 0-130 10:43 XRay HIP-Right Comments: Exam Date: 10:24Dictation Date: 10:43 X HIP COMP (MIN 2V) RT (Better) Plan of Care Planned Observations* Name Dates Details Planned Goals not documented Goal Planned Encounters* Appointment; Provider: Donnie Blanco On 26-Jun-2014 15:00 * Appointment; Provider: Angelo Randhawa On 31-Jan-2011 09:30 * Appointment; Provider: Angelo Randhawa On 22-Jan-2008 13:00 * Appointment; Provider: Angelo aRndhawa On 11:00 * Appointment; Provider: Angelo Randhawa On 08-Oct-2007 08:00 * Appointment; Provider: Angelo Shanks On 14-Sep-2007 08:45 Instructions * Instructions not documented Encounters Appointment; Angelo Shanks Encounter Diagnosis: Problem not documented On 16-Jun-2014 09:45 Appointment; Bhavik Cohn Encounter Diagnosis: Problem not documented On 13-May-2014 13:30 Appointment; Italia Bang Encounter Diagnosis: Problem not documented On 02-May-2014 08:00 Appointment; Angelo Shanks Encounter Diagnosis: Problem not documented On 29-Apr-2014 16:00 Appointment; Paola Aguirre Encounter Diagnosis: Problem not documented On 29-Apr-2014 15:00 Appointment; Donnie Blanco Encounter Diagnosis: Problem not documented On 29-Apr-2014 13:30 Appointment; Angelo Shanks Encounter Diagnosis: Problem not documented On 27-Feb-2014 14:45 Appointment; Kendrick Jason Encounter Diagnosis: Problem not documented On 24-Feb-2014 13:30 Appointment; Donnie Blanco Encounter Diagnosis: Problem not documented On 20-Feb-2014 11:15 Appointment; Malik Watkins Encounter Diagnosis: Problem not documented On 18-Feb-2014 13:00 Appointment; Km Fleming Encounter Diagnosis: Problem not documented On 12-Feb-2014 15:00 Appointment; Angelo Shanks Encounter Diagnosis: Problem not documented On 08-Feb-2014 09:45 Appointment; Ray Geiger Encounter Diagnosis: Problem not documented On 07-Feb-2014 10:15 Appointment; Angelo Shanks Encounter Diagnosis: Problem not documented On 02-Jan-2014 10:00 Appointment; Joel Montalvo Encounter Diagnosis: Problem not documented On 01-Jan-2014 14:00 Appointment; Italia Bang Encounter Diagnosis: Problem not documented On 01-Jan-2014 10:00 Appointment; Donnie Blanco Encounter Diagnosis: Problem not documented On 31-Dec-2013 14:45 Appointment; Angelo Shanks Encounter Diagnosis: Problem not documented On 14:45 Appointment; Donnie Blanco Encounter Diagnosis: Problem not documented On 14:00 Appointment; Angelo Randhawa Encounter Diagnosis: Problem not documented On 11-Sep-2013 15:30 Appointment; Angelo Shanks Encounter Diagnosis: Problem not documented On 09-Sep-2013 13:30 Appointment; Malik Watkins Encounter Diagnosis: Problem not documented On 29-Aug-2013 14:00 Appointment; Angelo Shanks Encounter Diagnosis: Problem not documented On 19-Aug-2013 15:30 Appointment; Donnie Blanco Encounter Diagnosis: Problem not documented On 19-Aug-2013 14:15 Appointment; Merritt Italia Encounter Diagnosis: Problem not documented On 08-Aug-2013 10:30 Appointment; Joel Montalvo Encounter Diagnosis: Problem not documented On 08-Aug-2013 07:45 Appointment; Angelo Shanks Encounter Diagnosis: Problem not documented On 01-Aug-2013 11:15 Appointment; Merritt Italia Encounter Diagnosis: Problem not documented On 29-Jul-2013 14:45 Appointment; Merritt Italia Encounter Diagnosis: Problem not documented On 24-Jul-2013 08:30 Appointment; Donnie Blanco Encounter Diagnosis: Problem not documented On 23-Jul-2013 13:00 Appointment; Angelo Shanks Encounter Diagnosis: Problem not documented On 22-Jul-2013 09:45 Appointment; Angelo Shanks Encounter Diagnosis: Problem not documented On 22-Apr-2013 11:15 Appointment; Angelo Shanks Encounter Diagnosis: Problem not documented On 15-Apr-2013 16:15 Appointment; Italia Bang Encounter Diagnosis: Problem not documented On 10-Apr-2013 10:00 Appointment; Joel Montalvo Encounter Diagnosis: Problem not documented On 10-Apr-2013 07:45 Appointment; Angelo Shanks Encounter Diagnosis: Problem not documented On 29-Mar-2013 15:15 Appointment; Priscila Boone Encounter Diagnosis: Problem not documented On 29-Mar-2013 11:15 Appointment; Ray Geiger Encounter Diagnosis: Problem not documented On 29-Mar-2013 09:00 Appointment; Wei Streeter Encounter Diagnosis: Problem not documented On 26-Sep-2012 12:00 Appointment; Angelo Shanks Encounter Diagnosis: Problem not documented On 25-Sep-2012 16:00 Appointment; Angelo Randhawa Encounter Diagnosis: Problem not documented On 08-Aug-2012 15:00 Appointment; Malik Denton Encounter Diagnosis: Problem not documented On 08-Aug-2012 10:30 Appointment; Angelo Shanks Encounter Diagnosis: Problem not documented On 30-Jul-2012 10:30 Appointment; Angelo Shanks Encounter Diagnosis: Problem not documented On 26-Jul-2012 11:00 Appointment; Angelo Shanks Encounter Diagnosis: Problem not documented On 02-Jul-2012 10:00 Appointment; Italia Bang Encounter Diagnosis: Problem not documented On 25-Jun-2012 09:30 Appointment; Joel Montalvo Encounter Diagnosis: Problem not documented On 25-Jun-2012 07:45 Appointment; Angelo Shanks Encounter Diagnosis: Problem not documented On 19-Jun-2012 09:45
--- OUTSIDE RECORDS SUMMARY | 2017-06-16 13:58 | XMS REPORT | Encounter Summary ---
Author Author [facility] Organization [facility] Address Unknown Phone Unavailable Care Team Providers Care Environmental Health Safety Engineer Name Role Phone Sedrick Mei MD Unavailable Unavailable Ray Serna MD PCP Encounter Details Date Type Department Care Team Description 03/24/2017 [facility] Salvador Cheney MD Orders [facility] [address] [place] [address] [place] [address] [facility] [phone] [place] [address] [phone] Social History Tobacco Use Types Packs/Day Years [...]
--- OUTSIDE RECORDS SUMMARY | 2017-06-16 13:59 | XMS REPORT ---
Author Author DELMI BYRNES [facility] Address [address] [place] [address] Care Team Providers Care Electrician Helper Name Role Phone DELMI BYRNES Unavailable PROBLEMS Type Condition ICD9-CM Code TBA26-DI Code Onset Dates Condition Status SNOMED Code Problem Fibromyalgia M79.7 Active 386283353 Problem Acute gout involving toe of right foot, unspecified cause M10.9 Active 064941849 Problem Edema, unspecified type R60.9 Active 876716179 Problem Lumbar radiculopathy M54.16 Active 046609295 Problem Chronic depression F32.9 Active 857313409 Problem Chronic kidney disease, stage 2 (mild) N18.2 Active 705558228 Problem Constipation, unspecified constipation type K59.00 Active 17421780 Problem Prediabetes R73.03 Active 831780846 Problem Essential hypertension I10 Active 05582590 Problem Anxiety F41.9 Active 55087957 Problem Coronary artery disease involving [place] coronary artery, angina presence unspecified, unspecified whether [place] or transplanted heart I25.10 Active 7252076936752 Problem Depressive disorder, not elsewhere classified F32.9 Active 19896961 Problem Hyperlipidemia, unspecified hyperlipidemia type E78.5 Active 69180608 Problem Arthritis M19.90 Active 6155662 Problem Barretts esophagus with dysplasia K22.719 Active [id number] ALLERGIES Substance Reaction Event Type Date Status Milk Unknown Non Drug Allergy May, Active Eggs Unknown Non Drug Allergy May, Active SOCIAL HISTORY No smoking Hx information available PLAN OF CARE Activity Details Follow Up prn Reason: VITAL SIGNS Height 67 in 2016-06-13 Weight 262.5 lbs 2016-06-13 Temperature 98.4 degrees Fahrenheit 2016-06-13 Heart Rate 68 bpm 2016-06-13 Respiratory Rate 16 2016-06-13 Oximetry 93 % 2016-06-13 BMI 41.11 kg/m2 2016-06-13 Blood pressure systolic 138 mmHg 2016-06-13 Blood pressure diastolic 84 mmHg 2016-06-13 MEDICATIONS Medication Instructions Dosage Frequency Start Date End Date Duration Status Triamcinolone Acetonide 0.1 % Externally Twice a day 1 application to affected area 12h Active Atenolol 50 mg Orally twice a day 1 tablet 12h Active Folic Acid 1 MG Orally twice a day 1 tablet 12h Active Aspirin 325 MG Orally Once a day 1 tablet 24h Active VESIcare 10 MG Orally Once a day 1 tablet 24h Active Exelon 4.6 MG/24HR Transdermal Once a day 1 patch to skin 24h Active Cholecalciferol 1000 UNIT Orally Once a day 2 capsules 24h Active Imodium A-D 2 MG Orally 8 time(s) a day 1 tablet Active Colace 100 MG Orally Once a day 1 capsule as needed 24h Active Risperdal 1 MG Orally Once a day 1 tablet 24h Active Zyrtec Allergy 10 MG Orally Once a day 1 tablet 24h Active Alprazolam 1 MG Orally Once a day 1 tablet 24h Active Pantoprazole Sodium 40 MG Orally Once a day 1 tablet 24h Active Lyrica 150 MG Orally 3 times a day 1 capsule 8h 28 days Active Multivitamin Adult - Active Duloxetine HCl 30 MG Orally twice a day 1 capsule 12h Active Myrbetriq 50 MG Orally Once a day 1 tablet 24h Active Ranitidine HCl 150 MG Orally twice a day 1 tablet at bedtime 12h Active Oxycodone HCl 5 MG Orally every 6 hrs 1 tablet 6h Active RESULTS Name Result Date Reference Range BNP 2016-06-13 B-Type Natriuretic Peptide 116.5 0.0-100.0 PROCEDURES Procedure Date Ordered Related Diagnosis Body Site MEASURE BLOOD OXYGEN LEVEL Jun 13, 2016 VENIPUNCT, ROUTINE* Jun 13, 2016 LAB NOT BILLED BY [facility] Jun 13, 2016 Office Visit, Est Pt., Level 3 Jun 13, 2016 IMMUNIZATIONS No Known Immunizations
--- OUTSIDE RECORDS SUMMARY | 2017-06-16 13:59 | XMS REPORT | Summary of Care ---
Author Author Paola Aguirre APRN Unknown Address [address] [place], [place] [id number] Phone Unavailable Care Team Providers Care President Finance Company Name Role Phone Dimitris Alejandra, Tarik Stephens [...] Peripheral vascular disease (443.9, I73.9) Status: Active Eczema (692.9, L30.9) Status: Active Arteriosclerotic heart disease (ASHD) (414.00, I25.10) Status: Active Chronic obstructive pulmonary disease (496, J44.9) Status: Active Depression (311, F32.9) Status: Active Hypertension (401.9, I10) Status: Active Osteoarthritis (715.90, M19.90) Status: Active Obesity (278.00, E66.9) Status: Active Peripheral neuropathy (356.9, G62.9) Status: Active Right hip pain (719.45, M25.551) Status: Active Low back pain radiating to right leg (724.2, M54.5) Status: Active Right hip pain (719.45, M25.551) Status: Active Obesity, Class II, BMI 35-39.9 (278.00, E66.9) Status: Active Reflux esophagitis (530.11, K21.0) Status: Active Dysphagia (787.20, R13.10) Status: Active Esophageal stenosis (530.3, K22.2) Status: Active 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, K22.70) Status: Active Ulcer of esophagus (530.20, K22.10) Status: Active Claudication, intermittent (443.9, I73.9) Status: Active Tobacco use disorder (305.1, Z72.0) Status: Active Medications Name Dates Details DULoxetine [...] 4 TO 6 HOURS NEEDEDMAX 5 PER DAY* * Quantity: 150 Refills: 0 Donnie Blanco [...] Refills: 2 Angelo Shanks M.D.* Started 30-Jul-2012 ActiveAtorvastatin Calcium 80 MG Oral Tablet TAKE 1 TABLET BY MOUTH EVERY NIGHT AT BEDTIME * Quantity: 30 Refills: 6 Angelo Randhawa M.D.* Started 23-Jan-2014 ActiveAtenolol 50 MG Oral Tablet TAKE 1 TABLET BY MOUTH TWICE DAILY * Quantity: 30 Refills: 5 Angelo Shanks M.D.* Started 23-Sep-2013 ActiveClobetasol Propionate 0.05 % External Shampoo SHAMPOO HAIR/SCALP, LEAVE ON FOR 15 MINUTES AND RINSE WELL. USE DAILYFOR 4 WEEKS * Quantity: 118 Refills: 11 Angelo Shanks M.D.* Started 25-Mar-2014 ActiveTriamcinolone Acetonide 55 MCG/ACT Nasal Aerosol USE ONE SPRAY IN EACH NOSTRIL EVERY DAY * Quantity: 16.5 Refills: 2 Angelo Shanks M.D.* Started 19-May-2014 ActivePantoprazole Sodium 40 MG Oral Tablet Delayed Release TAKE 1 TABLET BY MOUTH 30 MINUTES BEFORE BREAKFAST DAILY * Quantity: 30 Refills: 11 Italia Bang M.D.* Started 08-Aug-2013 ActiveTriamcinolone Acetonide 0.1 % External Cream APPLY A SMALL AMOUNT TO THE AFFECTED AREAS 3 TIMES DAILY * Quantity: 45 Refills: 0 Angelo Shanks M.D.* Started ActiveLyrica 150 MG Oral Capsule TAKE 1 CAPSULE BY MOUTH THREE TIMES DAILY * Quantity: 90 Refills: 2 Angelo Shanks M.D.* Started 17-Sep-2013 ActiveOxyCONTIN 20 MG Oral Tablet ER 12 Hour Abuse-Deterrent TAKE 1 TABLET Q 12HRSMUST LAST 30 DAYS*MAY FILL ON OR AFTER 07/25/14* * Quantity: 60 Refills: 0 Donnie Blanco M.D.* Started 13-Jun-2013 ActiveBelviq 10 MG Oral Tablet TAKE 1 TABLET TWICE DAILY.*MUST LAST 30 DAYS* * Quantity: 60 Refills: 0 Donnie Blanco M.D.* Started 26-Jun-2014 ActiveVoltaren 1 % Transdermal Gel APPLY TO AREA, 4 GM OF GEL TO AFFECTED AREA TWICE DAILY. DO NOT APPLY MORE THAN 16 GM DAILY TO ANY ONE AFFECTED JOINT. * Quantity: 1 Refills: 3 Donnie Blanco M.D.* Started 23-Jul-2013 Twoyhs750 GM Tube Meloxicam 15 MG Oral Tablet TAKE 1 TABLET BY MOUTH EVERY DAY WITH FOOD * Quantity: 30 Refills: 3 Donnie Blanco M.D.* Started 19-Aug-2013 Active Allergies and Adverse Reactions Name Dates [...] edema (V12.69, Z87.09) Status: Resolved History of Spontaneous ecchymosis (782.7, [...] Dilation Of Esoph (Less Than 30 Mm) MRI LUMBAR SPINE Ordered:01-Jul-2014 MRI LUMBAR SPINE Ordered:26-Jun-2014 Immunization Name Dates Details Influenza Administered on:26-Jan-2009 Pneumo (Prevnar) Administered on:06-Mar-2009 Influenza A (H1N1) Monoval Vac Intramuscular Suspension Administered on:14-Mar-2009 Influenza Lot #: [id number] Administered on:18-Feb-2010 Influenza Administered on:11-Feb-2011 Influenza Administered [...] smoker Vital Signs Date Test Result Details 26-Jun-2014 14:31 BP Systolic 156 mm[Hg] Status: BP Diastolic 86 mm[Hg] Status: Heart Rate 56 /min Status: Respiration Rate 20 /min Status: Weight 234.5 lb Status: Height 67 in Status: O2 SAT 98 % Status: Body Mass Index Calculated 36.73 kg/m2 Status: Body Surface Area Calculated 2.16 m2 Status: 16-Jun-2014 09:41 BP Systolic 154 mm[Hg] Status: [...] low threshold) Range: >60 EST GFR, NON-AFR ANGOLAN 45 ml/min (Below low threshold) Range: >60 Comments: EST GFR is reported in ml/min per 1.73 m2 of body surface area. For -Belgian, please multiple result by 1.2.----- GLUCOSE 91 [...] not documented Goal Planned Encounters* Appointment; Provider: Angelo Shanks On 26-Aug-2014 09:45 * Appointment; Provider: Donnie Blanco On 24-Jul-2014 13:00 * Appointment; Provider: Angelo Shanks On 11-Jul-2014 15:30 * Appointment; Provider: Angelo Randhawa On 31-Jan-2011 09:30 * Appointment; Provider: Angelo Randhawa On 22-Jan-2008 13:00 * Appointment; Provider: Angelo Randhawa On 11:00 * Appointment; Provider: Angelo Randhawa On 08-Oct-2007 08:00 * Appointment; Provider: Angelo Shanks On 14-Sep-2007 08:45 Instructions * Instructions not documented Encounters Appointment; Joel Montalvo Encounter Diagnosis: Problem not documented On 01-Jul-2014 11:30 Appointment; Italia Bang Encounter Diagnosis: Problem not documented On 01-Jul-2014 07:30 Appointment; Donnie Blanco Encounter Diagnosis: Problem not documented On 26-Jun-2014 15:00 Appointment; Angelo Shanks Encounter Diagnosis: Problem [...] Problem not documented On 19-Aug-2013 14:15 Appointment; Italia Bang Encounter Diagnosis: Problem not documented On 08-Aug-2013 10:30 Appointment; Joel Montalvo Encounter Diagnosis: Problem not documented On 08-Aug-2013 07:45 Appointment; Angelo Shanks Encounter Diagnosis: Problem not documented On 01-Aug-2013 11:15 Appointment; Italia Bang Encounter Diagnosis: Problem not documented On 29-Jul-2013 14:45 Appointment; Italia Bang Encounter Diagnosis: Problem not documented On 24-Jul-2013 [...]
--- OUTSIDE RECORDS SUMMARY | 2017-06-16 13:59 | XMS REPORT ---
Author Author DELMI BYRNES Organization [employer] Address Unknown Phone Unavailable Care Team Providers Care Billing Typist Name Role Phone DELMI BYRNES CP Unavailable Allergies No Known Allergies Problems Problem Type Condition Code Onset Dates Condition Status Problem Barretts esophagus with dysplasia K22.719 Active Problem Depressive disorder, not elsewhere classified F32.9 Active Problem Edema, unspecified type R60.9 Active Problem Coronary artery disease involving red devil coronary artery, angina presence unspecified, unspecified whether red devil or transplanted heart I25.10 Active Problem Acute gout involving toe of right foot, unspecified cause M10.9 Active Problem Anxiety F41.9 Active Problem Hyperlipidemia, unspecified hyperlipidemia type E78.5 Active Problem Fibromyalgia M79.7 Active Problem Arthritis M19.90 Active Medications No Known Medications Results No Known Results Summary Purpose [employer] Submission
--- OUTSIDE RECORDS SUMMARY | 2017-06-16 13:59 | XMS REPORT ---
Author Author LAURA SANTIZO Organization [facility] Address [address] [place] [address] Care Team Providers Care Airframe Design Engineer Name Role Phone LAURA SANTIZO Unavailable PROBLEMS Type Condition ICD9-CM Code [id number] Code Onset Dates Condition Status SNOMED Code Problem Fibromyalgia M79.7 Active 463337575 Problem Acute gout involving toe of right foot, unspecified cause M10.9 Active 078579427 Problem Edema, unspecified type R60.9 Active 630801794 Problem Lumbar radiculopathy M54.16 Active 834639715 Problem Chronic depression F32.9 Active 810980989 Problem Chronic kidney disease, stage 2 (mild) N18.2 Active 598668395 Problem Constipation, unspecified constipation type K59.00 Active 75268400 Problem Prediabetes R73.03 Active 938988151 Problem Essential hypertension I10 Active 85483183 Problem Anxiety F41.9 Active 04718064 Problem Coronary artery disease involving [place] coronary artery, angina presence unspecified, unspecified whether [place] or transplanted heart I25.10 Active 1142080127248 Problem Depressive disorder, not elsewhere classified F32.9 Active 07008660 Problem Hyperlipidemia, unspecified hyperlipidemia type E78.5 Active 70508911 Problem Arthritis M19.90 Active 7201913 Problem Barretts esophagus with dysplasia K22.719 Active 8869209815540052 ALLERGIES No Information SOCIAL HISTORY Never Assessed PLAN OF CARE VITAL SIGNS MEDICATIONS Unknown Medications RESULTS No Results PROCEDURES No Known procedures IMMUNIZATIONS No Known Immunizations MEDICAL (GENERAL) HISTORY Type Description Date Medical History Fungal infection Medical History Anxiety disorder, unspecified Medical History Other chronic pain Medical History Essential (primary) hypertension Medical History Gastro-esophageal reflux disease without esophagitis Surgical History bilat hip replacement Surgical History cholecystectomy Surgical History cardiac stent Surgical History second right hip replacement 03/2016 Surgical History plevic reconstructed Surgical History cataract surgery both eyes 09/03/16 and 08/20/16 Hospitalization History cardiac Hospitalization History chest pains
--- OUTSIDE RECORDS SUMMARY | 2017-06-16 13:59 | XMS REPORT ---
Author Author DELMI BYRNES [facility] Address [address] [place] [address] Care Team Providers Care Hand Cooper Helper Name Role Phone DELMI BYRNES Unavailable PROBLEMS Type Condition ICD9-CM Code SRA09-QH Code Onset Dates Condition Status SNOMED Code Assessment Coronary artery disease involving [place] coronary artery, angina presence unspecified, unspecified whether [place] or transplanted heart I25.10 Jan, Active 428349021208303 Problem Barretts esophagus with dysplasia K22.719 Active 1609657601576213 Problem Depressive disorder, not elsewhere classified F32.9 Active 82071802 Problem Edema, unspecified type R60.9 Active 658717709 Problem Coronary artery disease involving [place] coronary artery, angina presence unspecified, unspecified whether [place] or transplanted heart I25.10 Active 3519425985727 Problem Anxiety F41.9 Active 45967874 Problem Hyperlipidemia, unspecified hyperlipidemia type E78.5 Active 95443922 Problem Fibromyalgia M79.7 Active 212171205 Problem Arthritis M19.90 Active 0695031 ALLERGIES Substance Reaction Event Type Date Status N.K.D.A. Unknown Non Drug Allergy Jan, Unknown SOCIAL HISTORY No smoking Hx information available PLAN OF CARE VITAL SIGNS Height 67 in 2016-01-25 Heart Rate 70 bpm 2016-01-25 Respiratory Rate 18 2016-01-25 Blood pressure systolic 106 mmHg 2016-01-25 Blood pressure diastolic 66 mmHg 2016-01-25 MEDICATIONS Medication Instructions Dosage Frequency Start Date End Date Duration Status Ranitidine HCl 300 MG Orally Once a day 1 tablet at bedtime 24h Active Pantoprazole Sodium 40 MG Orally Once a day 1 tablet 24h Active ProAir HFA 108 (90 Base) MCG/ACT Inhalation every 4 hrs 2 puffs as needed 4h Active Tramadol HCl 50 MG Orally every 6 hrs 1 tablet as needed 6h Active Atenolol 50 MG Orally Once a day 1 tablet 24h Active Duloxetine HCl 60 MG Orally Once a day 1 capsule 24h Active Loratadine 10 MG Orally Once a day 1 tablet 24h Active Lyrica 150 MG Orally t i d 1 capsule Active Cholecalciferol 1000 UNIT Orally Once a day 1 capsule 24h Active VESIcare 10 MG Orally Once a day 1 tablet 24h Active Triamcinolone Acetonide 0.1 % Externally Twice a day 1 application to affected area 12h Active RESULTS No Results PROCEDURES Procedure Date Ordered Related Diagnosis Body Site Office Visit, Est Pt., Level 3 Jan 25, 2016 IMMUNIZATIONS No Known Immunizations
--- OUTSIDE RECORDS SUMMARY | 2017-06-16 14:00 | XMS REPORT | Summary of Care ---
Author Author Dimitris Alejandra, Tarik Stephens Organization Unknown Address [address] [place], [place] [id number] Phone Unavailable Care Team Providers Care Residue Furnace Operator Name Role Phone Dimitris Alejandra, Tarik Stephens Unavailable Unavailable Merritt Alejandra, Marla Echavarria Unavailable Unavailable Bella Alejandra, Donnie Unavailable Unavailable Sydnee Alejandra, Yaniv Stephens Unavailable Unavailable Marianne Alejandra, Bhavik Unavailable Unavailable Angelo Shanks PP Unavailable Unavailable Unavailable Functional Status Functional Status Health Issues* Name Dates Details Functional status health issues are not documented Status: Cognitive Status Health Issues* Name Dates Details Cognitive status health issues are not documented Status: Problems Name Dates Details Polymyalgia rheumatica (725, M35.3) Status: Active Nicotine dependence (305.1, F17.200) Status: Active Lower back pain (724.2, M54.5) Status: Active Anxiety (300.00, F41.9) Status: Active Hypokalemia (276.8, E87.6) Status: Active Hyperlipidemia (272.4, E78.5) Status: Active Fibromyalgia (729.1, M79.7) Status: Active Peripheral neuropathy (356.9, G62.9) Status: Active 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, 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: Active Polyarthralgia (719.49, M25.50) Status: Active Edema (782.3, R60.9) Status: Active Insomnia (780.52, G47.00) Status: Active Allergic rhinitis (477.9, J30.9) Status: Active Encounter for screening for malignant neoplasm of colon (V76.51, Z12.11) Status: Active Neuropathic pain (729.2, M79.2) Status: Active Poison araceli (692.6, L23.7) Status: Active Knee osteoarthritis (715.96, M17.9) Status: Active Dysphagia (787.20, R13.10) Status: Active Chronic obstructive pulmonary disease (496, J44.9) Status: Active Depression (311, F32.9) Status: Active Peripheral vascular disease (443.9, I73.9) Status: Active Osteoarthritis (715.90, M19.90) Status: Active Ulcer of esophagus (530.20, K22.10) Status: Active Pain in joint of right shoulder (719.41, M25.511) Status: Active Shoulder pain (719.41, M25.519) Status: Active 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, 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) Status: Active Rotator cuff tendonitis (726.10, M75.80) Status: Active Obesity (278.00, E66.9) Status: Active Reflux esophagitis (530.11, K21.0) Status: Active Esophageal stenosis (530.3, K22.2) Status: Active Hypertension (401.9, I10) Status: Active Arteriosclerotic heart disease (ASHD) (414.00, I25.10) Status: Active Hip pain (719.45, M25.559) Status: Active Hip pain, bilateral (719.45, M25.551) Status: Active Knee pain, bilateral (719.46, M25.561) Status: Active Medications Name Dates Details DULoxetine HCl - 60 MG Oral Capsule Delayed Release Particles TAKE TWO CAPSULES BY MOUTH EVERY DAY Quantity: 60 [...] BY MOUTH DAILY * Quantity: 30 Refills: 5 Angelo Shanks M.D.* Started 06-Apr-2009 ActiveProAir HFA 108 (90 Base) MCG/ACT Inhalation Aerosol Solution TAKE 2 PUFFS BY MOUTH EVERY 4 HOURS NEEDED * Quantity: 8.5 Refills: 11 Angelo Shanks M.D.* Started 04-May-2009 ActiveFurosemide 80 MG Oral Tablet take one tablet by mouth every day * Quantity: 30 Refills: 5 Angelo Shanks M.D.* Started 02-Jan-2009 ActiveLoratadine 10 MG Oral Tablet take one tablet by mouth every day * Quantity: 30 Refills: 5 Angelo Shanks M.D.* Started 13-Jul-2009 ActiveFurosemide 80 [...] 5 PER DAY*MAY FILL ON OR AFTER 03/27/14* * Quantity: 150 Refills: 0 Donnie Blanco [...] Refills: 2 Angelo Shanks M.D.* Started 30-Jul-2012 ActiveAtenolol 50 MG Oral Tablet TAKE 1 TABLET BY MOUTH TWICE DAILY * Quantity: 30 Refills: 5 Angelo Shanks M.D.* Started 23-Sep-2013 ActivePhentermine HCl - 37.5 MG Oral Tablet TAKE 1 TABLET DAILY. * Quantity: 30 Refills: 0 Angelo Shanks M.D.* Started 23-Jul-2013 ActiveTriamcinolone Acetonide 0.1 % External Cream APPLY SPARINGLY TO AFFECTED AREA(S) 3 TIMES A DAY * Quantity: 1 Refills: 0 Angelo Shanks M.D.* Started ActivePantoprazole Sodium 40 MG Oral Tablet Delayed Release TAKE 1 TABLET 30 MINUTES BEFORE BREAKFAST DAILY. * Quantity: 30 Refills: 5 October Justyn* Started 08-Aug-2013 ActiveLyrica 150 MG Oral Capsule TAKE 1 CAPSULE BY MOUTH THREE TIMES DAILY * Quantity: 90 Refills: 1 Angelo Shanks M.D.* Started 17-Sep-2013 ActivePredniSONE 20 MG Oral Tablet TAKE 3 TABLETS DAILY FOR 3 DAYS, THEN 2 TABLETS DAILY FOR 3 DAYS, THEN 1 TABLET DAILY FOR 3 DAYS. * Quantity: 18 Refills: 0 Bhavik Lopes M.D.* Started 14-Dec-2013 ActivePredniSONE 10 MG Oral Tablet iv po daily to start taper by 1 tab q3days * Quantity: 30 Refills: 0 Angelo Shanks M.D.* Started ActiveMeloxicam 15 MG Oral Tablet TAKE 1 TABLET BY MOUTH EVERY DAY WITH FOOD * Quantity: 30 Refills: 3 Donnie Blanco M.D.* Started 19-Aug-2013 ActiveSucralfate 1 GM/10ML Oral Suspension 1 gm liquid before meals and at bedtime for 3 days * Quantity: 120 Refills: 0 October Justyn* Started 01-Jan-2014 ActiveDexilant 60 MG Oral Capsule Delayed Release TAKE 1 CAPSULE Daily * Quantity: 30 Refills: 11 October Justyn* Started 01-Jan-2014 ActiveLyrica 150 MG Oral Capsule TAKE 1 CAPSULE BY MOUTH THREE TIMES DAILY * Quantity: 90 Refills: 0 Angelo Shanks M.D.* Started ActiveAtorvastatin Calcium 80 MG Oral Tablet TAKE 1 TABLET BY MOUTH EVERY NIGHT AT BEDTIME * Quantity: 30 Refills: 3 Angelo Randhawa M.D.* Started 05-Aug-2013 ActiveAtorvastatin Calcium 80 MG Oral Tablet TAKE 1 TABLET BY MOUTH EVERY NIGHT AT BEDTIME * Quantity: 30 Refills: 0 Angelo Randhawa M.D.* Started 23-Jan-2014 ActiveSulfamethoxazole-TMP DS 800-160 MG Oral Tablet TAKE 1 TABLET BY MOUTH TWICE DAILY FOR 7 DAYS * Quantity: 14 Refills: 0 Angelo Shanks M.D.* Started 09-Sep-2013 ActiveOxyCONTIN 20 MG Oral Tablet ER 12 Hour Abuse-Deterrent TAKE 1 TABLET Q 12HRSMUST LAST 30 DAYSMAY FILL ON OR AFTER 03/28/14* * Quantity: 60 Refills: 0 Donnie Blanco M.D.* Started 13-Jun-2013 Active Allergies and Adverse Reactions Name Dates [...] Dilation Of Esoph (Less Than 30 Mm) ORTHO SHOULDER RIGHT Ordered:06-Feb-2014 Immunization Name Dates Details Influenza Administered on:26-Jan-2009 Pneumo (Prevnar) Administered on:06-Mar-2009 Influenza A (H1N1) Monoval Vac Intramuscular Suspension Administered on:14-Mar-2009 Influenza Lot #: [id number] Administered on:18-Feb-2010 Influenza Administered on:11-Feb-2011 Influenza Administered on:01-Jun-2012 Fluzone Quadrivalent 0.5 ML Intramuscular Suspension Administered on:29-Mar-2013 Family History Unknown Family Member* Name Dates Details Family history of Diabetes Mellitus (V18.0) Comments: Family History Status: Active Family history of Hypertension (V17.49) Comments: Family History Status: Active Mother* Name Dates Details Family history of Diabetes Mellitus (V18.0) Status: Active Social History Name Dates Details Smoking Status* Former smoker Vital Signs Date Test Result Details 20-Feb-2014 11:06 BP Systolic 138 mm[Hg] Status: BP Diastolic 70 mm[Hg] Status: Heart Rate 71 /min Status: Respiration Rate 20 /min Status: Weight 227 lb Status: Height 67 in Status: O2 SAT 97 % Status: Body Mass Index Calculated 35.55 kg/m2 Status: Body Surface Area Calculated 2.13 m2 Status: 08-Feb-2014 10:17 BP Systolic 150 mm[Hg] Status: BP Diastolic 80 mm[Hg] Status: 08-Feb-2014 09:36 BP Systolic 162 mm[Hg] Status: BP Diastolic 86 mm[Hg] Status: Weight 223.6 lb Status: Body Mass Index Calculated 35.02 kg/m2 Status: Body Surface Area Calculated 2.12 m2 Status: 07-Feb-2014 10:54 BP Systolic 134 mm[Hg] Status: BP Diastolic 83 mm[Hg] Status: Heart Rate 62 /min Status: Respiration Rate 16 /min Status: Results Date Description Value Details Results not documented Plan of Care Planned Observations* Name Dates Details Planned Goals not documented Goal Planned Encounters* Appointment; Provider: Italia Bang On 02-May-2014 08:00 * Appointment; Provider: Donnie Blanco On 21-Apr-2014 14:15 * Appointment; Provider: Angelo Shanks On 03-Mar-2014 16:00 * Appointment; Provider: Angelo Randhawa On 31-Jan-2011 09:30 * Appointment; Provider: Angelo Randhawa On 22-Jan-2008 13:00 * Appointment; Provider: Angelo Randhawa On 11:00 * Appointment; Provider: Angelo Randhawa On 08-Oct-2007 08:00 * Appointment; Provider: Angelo Shanks On 14-Sep-2007 08:45 Instructions * Instructions not documented Encounters Appointment; Kendrick Jason Encounter Diagnosis: Problem not [...] Diagnosis: Problem not documented On 19-Jun-2012 09:45 Appointment; Malik Watkins Encounter Diagnosis: Problem not documented On 07-Jun-2012 15:00 Appointment; Angelo Shanks Encounter Diagnosis: Problem not documented On 01-Jun-2012 15:30
--- OUTSIDE RECORDS SUMMARY | 2017-06-16 14:00 | XMS REPORT | Summary of Care ---
Author Author Dimitris Alejandra, Tarik Stephens Organization Unknown Address [address] [place], [place] [id number] Phone Unavailable Care Team Providers Care Batting Machine Operator Name Role Phone Dimitris Alejandra, Tarik [...] Status: Active Anxiety (300.00, F41.9) Status: Active Polyarthralgia (719.49, M25.50) Status: Active Insomnia (780.52, G47.00) Status: Active Allergic rhinitis (477.9, J30.9) Status: Active Edema (782.3, R60.9) Status: Active Encounter for screening for malignant neoplasm of colon (V76.51, Z12.11) Status: Active Dysphagia (787.20, R13.10) Status: Active Chronic obstructive pulmonary disease (496, J44.9) Status: Active Depression (311, F32.9) Status: Active Ulcer of esophagus (530.20, K22.10) Status: Active Pain in joint of right shoulder (719.41, M25.511) Status: Active Shoulder pain (719.41, M25.519) Status: Active 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11, K21.0) Status: Active Peripheral vascular disease (443.9, I73.9) Status: Active Right groin pain (789.09, R10.30) Status: Active Esophageal stenosis (530.3, K22.2) Status: Active Hypokalemia (276.8, E87.6) Status: Active Psoriasis (696.1, L40.9) Status: Active Plantar fasciitis (728.71, M72.2) Status: Active Neuropathic pain (729.2, M79.2) Status: Active 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, 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: Active Fibromyalgia (729.1, M79.7) Status: Active Knee osteoarthritis (715.96, M17.9) Status: Active Medications Name Dates Details DULoxetine [...] Refills: 0 Angelo Shanks M.D.* Started 06-Apr-2009 ActiveLoratadine 10 MG Oral Tablet take one tablet by mouth every day * Quantity: 30 Refills: 0 Angelo Shanks M.D.* Started 13-Jul-2009 ActiveRanitidine HCl - 300 MG Oral Tablet Take 1 tablet at night * Quantity: 30 Refills: 4 Italia Justyn* Started 18-Jan-2011 ActiveLisinopril 10 MG Oral Tablet take 1 [...] Refills: 0 Angelo Shanks M.D.* Started 01-Jun-2012 ActiveSulfamethoxazole-TMP DS 800-160 MG Oral Tablet Take One Tablet By Mouth Twice Daily * Quantity: 10 Refills: 0 Angelo Shanks M.D.* Started 03-Jul-2012 ActivePhentermine HCl - 37.5 MG Oral Tablet TAKE 1 TABLET DAILY. * Quantity: 30 Refills: 0 Angelo Shanks M.D.* Started 23-Jul-2013 ActivePantoprazole Sodium 40 MG Oral Tablet Delayed Release TAKE 1 TABLET BY MOUTH 30 MINUTES BEFORE BREAKFAST DAILY * Quantity: 30 Refills: 11 Merritt, Italia Justyn* Started 08-Aug-2013 ActiveMeloxicam 15 MG Oral Tablet TAKE 1 TABLET BY MOUTH EVERY DAY WITH FOOD * Quantity: 30 Refills: 0 Donnie Blanco M.D.* Started 19-Aug-2013 ActiveTriamcinolone Acetonide 0.1 % External Cream APPLY A SMALL AMOUNT TO THE AFFECTED AREAS 3 TIMES DAILY * Quantity: 45 Refills: 0 Angelo Shanks M.D.* Started ActivePredniSONE 10 MG Oral Tablet iv po daily to start taper by 1 tab q3days * Quantity: 30 Refills: 0 Angelo Shanks M.D.* Started ActiveDexilant 60 MG Oral Capsule Delayed Release TAKE 1 CAPSULE Daily * Quantity: 30 Refills: 11 Italia Justyn* Started 01-Jan-2014 ActiveSucralfate 1 GM/10ML Oral Suspension 1 gm liquid before meals and at bedtime for 3 days * Quantity: 120 Refills: 0 Italia Bang M.D.* Started 01-Jan-2014 ActiveAtorvastatin Calcium 80 MG Oral Tablet TAKE [...] Refills: 2 Angelo Shanks M.D.* Started 19-May-2014 ActiveOxyCONTIN 20 MG Oral Tablet ER 12 Hour Abuse-Deterrent TAKE 1 TABLET Q 12HRSMUST LAST 30 DAYS*MAY FILL ON OR AFTER 05/28/14* * Quantity: 60 Refills: 0 Donnie Blanco M.D.* Started 13-Jun-2013 ActiveZolpidem Tartrate 10 MG Oral Tablet TAKE 1 TABLET BY MOUTH EVERY DAY AT BEDTIME NEEDED * Quantity: 30 Refills: 2 Angelo Shanks M.D.* Started 30-Jul-2012 ActiveHydrocodone-Acetaminophen 10-325 MG Oral Tablet TAKE ONE TABLET BY MOUTH EVERY 4 TO 6 HOURS NEEDEDMAX 5 PER DAY*MAY FILL ON OR AFTER 05/28/14* * Quantity: 150 Refills: 0 Donnie Blanco M.D.* Started 28-Jan-2011 ActiveZetia 10 MG Oral Tablet take one tablet by mouth every day * Quantity: 30 Refills: 0 Angelo Shanks M.D.* Started 30-Mar-2010 ActiveTriamcinolone Acetonide 55 MCG/ACT INHA USE ONE SPRAY IN EACH NOSTRIL EVERY DAY * Quantity: 16.5 Refills: 0 Angelo Shanks M.D.* Started 02-Feb-2011 ActiveTopiramate 50 MG Oral Tablet 1 at HS * Quantity: 30 Refills: 5 Angelo Shanks M.D.* Started 02-May-2014 ActiveOndansetron 4 MG Oral Tablet Dispersible DISSOLVE 1 TABLET BY MOUTH EVERY 6 HOURS NEEDED FOR NAUSEA * Quantity: 20 Refills: 0 Angelo Shanks M.D.* Started 15-Apr-2014 ActivePredniSONE 20 MG Oral Tablet TAKE 3 TABLETS DAILY FOR 3 DAYS, THEN 2 TABLETS DAILY FOR 3 DAYS, THEN 1 TABLET DAILY FOR 3 DAYS. * Quantity: 18 Refills: 0 Bhavik Lopes M.D.* Started 14-Dec-2013 ActiveAtenolol 50 MG Oral Tablet TAKE 1 TABLET BY MOUTH TWICE DAILY * Quantity: 30 Refills: 5 Angelo Shanks M.D.* Started 23-Sep-2013 ActiveLyrica 150 MG Oral Capsule TAKE 1 CAPSULE BY MOUTH THREE TIMES DAILY * Quantity: 90 Refills: 2 Angelo Shanks M.D.* Started 17-Sep-2013 ActiveSulfamethoxazole-TMP DS 800-160 MG Oral Tablet TAKE 1 TABLET BY MOUTH TWICE DAILY FOR 7 DAYS * Quantity: 14 Refills: 0 Angelo Shanks M.D.* Started 09-Sep-2013 ActiveProAir HFA 108 (90 Base) MCG/ACT Inhalation Aerosol Solution TAKE 2 PUFFS BY MOUTH EVERY 4 HOURS NEEDED * Quantity: 8.5 Refills: 11 Angelo Shanks M.D.* Started 04-May-2009 ActiveFurosemide 80 MG Oral Tablet take one tablet by mouth every day * Quantity: 30 Refills: 5 Angelo Shanks M.D.* Started 16-Feb-2010 ActiveFurosemide 80 MG Oral Tablet take one tablet by mouth every day * Quantity: 30 Refills: 5 Angelo Shanks M.D.* Started 02-Jan-2009 ActiveAtorvastatin Calcium 80 MG Oral Tablet TAKE 1 TABLET BY MOUTH EVERY NIGHT AT BEDTIME * Quantity: 30 Refills: 3 Angelo Randhawa M.D.* Started 05-Aug-2013 ActivePotassium Chloride Misti ER 10 MEQ Oral Tablet Extended Release take 4 tablets by mouth twice daily * Quantity: 240 Refills: 5 Angelo Shanks M.D.* Started 20-Sep-2010 ActiveVoltaren 1 % Transdermal Gel APPLY TO AREA, 4 GM OF GEL TO AFFECTED AREA TWICE DAILY. DO NOT APPLY MORE THAN 16 GM DAILY TO ANY ONE AFFECTED JOINT. * Quantity: 1 Refills: 3 Donnie Blanco M.D.* Started 23-Jul-2013 [id number] GM Tube Allergies and Adverse Reactions Name Dates Details [...] (Less Than 30 Mm) Completed:25-Jun-2012 History of Upr GI Endosc W/ Balloon Dilation Of Esoph (Less Than 30 Mm) History of Upr GI Endosc W/ Balloon Dilation Of Esoph (Less Than 30 Mm) History of Gastroscopy With Biopsy Completed:10-Apr-2013 Procedures not documented Immunization Name Dates Details Influenza Administered on:26-Jan-2009 Pneumo (Prevnar) Administered on:06-Mar-2009 Influenza A (H1N1) Monoval Vac Intramuscular Suspension Administered on:14-Mar-2009 Influenza Lot #: [id number] Administered on:18-Feb-2010 Influenza Administered on:11-Feb-2011 Influenza Administered [...] smoker Vital Signs Date Test Result Details No Known Vitals to report Results Date Description Value Details Results not [...] Instructions * Instructions not documented Encounters Appointment; Bhavik Cohn Encounter Diagnosis: Problem not [...] Problem not documented On 26-Sep-2012 12:00 Appointment; nAgelo Shanks Encounter Diagnosis: Problem not documented On [...]
--- OUTSIDE RECORDS SUMMARY | 2017-06-16 14:01 | XMS REPORT | Summary of Care ---
Author Author Dimitris Alejandra, Tarik Stephens Organization Unknown Address [address] [place], [place] [id number] Phone Unavailable Care Team Providers Care Blow Mold Operator Name Role Phone Dimitris Alejandra, Tarik [...] not documented Status: Problems Name Dates Details Edema (782.3, R60.9) Status: Active Insomnia (780.52, G47.00) Status: Active Onychomycosis (110.1, B35.1) Status: Active Candidiasis (112.9, B37.9) Status: Active Hyperlipidemia (272.4, E78.5) Status: Active Allergic rhinitis (477.9, J30.9) Status: Active Nicotine dependence (305.1, F17.200) Status: Active Osteoarthritis (715.90, M19.90) Status: Active Reflux esophagitis (530.11, K21.0) Status: Active 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, K22.70) Status: Active Peripheral neuropathy (356.9, G62.9) Status: Active Hypokalemia (276.8, E87.6) Status: Active Nausea (787.02, R11.0) Status: Active Anxiety (300.00, F41.9) Status: Active Obesity (278.00, E66.9) Status: Active Right hip pain (719.45, M25.551) Status: Active Fibromyalgia (729.1, M79.7) Status: Active Hypertension (401.9, I10) Status: Active Low back pain radiating to right leg (724.2, M54.5) Status: Active CAD (coronary atherosclerotic disease) (414.00, I25.10) Status: Active Chronic obstructive pulmonary disease (496, J44.9) Status: Active Depression (311, F32.9) Status: Active Medications Name Dates Details DULoxetine [...] ActiveClopidogrel Bisulfate 75 MG Oral Tablet take 1 tablet by mouth every day * Quantity: 30 Refills: 6 Angelo Randhawa M.D.* Started ActiveCetirizine HCl - 10 MG Oral Tablet TAKE 1 TABLET BY MOUTH DAILY * Quantity: 30 Refills: 5 Angelo Shanks M.D.* Started 06-Apr-2009 ActiveProAir HFA 108 (90 Base) MCG/ACT Inhalation Aerosol Solution TAKE TWO PUFFS BY MOUTH EVERY 4 HOURS NEEDED * Quantity: 1 Refills: 5 Angelo Shanks M.D.* Started 04-May-2009 Active8.5 GM Inhaler Loratadine 10 MG Oral Tablet take one tablet by mouth every day * Quantity: 30 Refills: 5 Angelo Shanks M.D.* Started 13-Jul-2009 ActiveFurosemide 80 MG Oral Tablet take one tablet by mouth every day * Quantity: 30 Refills: 5 Angelo Shanks M.D.* Started 16-Feb-2010 ActiveZetia 10 MG Oral Tablet take one tablet by mouth every day * Quantity: 30 Refills: 11 Angelo Shanks M.D.* Started 30-Mar-2010 ActivePotassium Chloride Misti ER 10 MEQ Oral Tablet Extended Release take 4 tablets by mouth twice daily * Quantity: 240 Refills: 5 Angelo Shanks M.D.* Started 20-Sep-2010 ActiveRanitidine HCl - 300 MG Oral Tablet TAKE 1 TABLET BY MOUTH THREE TIMES DAILY * Quantity: 90 Refills: 3 Italia Bang M.D.* Started 18-Jan-2011 ActiveHydrocodone-Acetaminophen 10-325 MG Oral Tablet TAKE ONE TABLET BY MOUTH EVERY 4 TO 6 HOURS NEEDEDMAX 5 PER DAYMAY FILL ON OR AFTER 08/23/14* * Quantity: 150 Refills: 0 Donnie Blanco M.D.* Started 28-Jan-2011 ActiveLisinopril 10 MG Oral Tablet take 1 [...] Angelo Shanks M.D.* Started 23-Sep-2013 ActiveTriamcinolone Acetonide 55 MCG/ACT Nasal Aerosol USE ONE SPRAY IN EACH NOSTRIL EVERY DAY * Quantity: 16.5 Refills: 2 Angelo Shanks M.D.* Started 19-May-2014 ActiveLyrica 150 MG Oral Capsule TAKE 1 CAPSULE BY MOUTH THREE TIMES DAILY * Quantity: 90 Refills: 2 Angelo Shanks M.D.* Started 17-Sep-2013 ActiveNicotine 21-14-7 MG/24HR Transdermal Kit 21 mg [id number],14mgx2 wk,[id number] * Quantity: 1 Refills: 0 Angelo Shanks M.D.* Started 11-Jul-2014 ActiveTerbinafine HCl - 250 MG Oral Tablet TAKE 1 TABLET DAILY. * Quantity: 30 Refills: 5 Angelo Shanks M.D.* Started 11-Jul-2014 ActiveClotrimazole 10 MG Mouth/Throat Aubrey CHEW 1 AUBREY Every 4 hours * Quantity: 25 Refills: 0 Angelo Shanks M.D.* Started 17-Jul-2014 ActiveOxyCONTIN 20 MG Oral Tablet ER 12 Hour Abuse-Deterrent TAKE 1 TABLET Q 12HRSMUST LAST 30 DAYS*MAY FILL ON OR AFTER 08/23/14* * Quantity: 60 Refills: 0 Donnie Blanco M.D.* Started 13-Jun-2013 ActiveCefuroxime Axetil 500 MG Oral Tablet 1 bid * Quantity: 20 Refills: 0 Angelo Shanks M.D.* Started 29-Jul-2014 ActivePantoprazole Sodium 40 MG Oral Tablet Delayed Release TAKE 1 TABLET BY MOUTH 30 MINUTES BEFORE BREAKFAST DAILY * Quantity: 30 Refills: 11 Italia Bang M.D.* Started 08-Aug-2013 ActiveMeloxicam 15 MG Oral Tablet TAKE 1 TABLET BY MOUTH EVERY DAY WITH FOOD * Quantity: 30 Refills: 3 Donnie Blanco M.D.* Started 19-Aug-2013 ActiveVoltaren 1 % Transdermal Gel APPLY TO AREA, 4 GM OF GEL TO AFFECTED AREA TWICE DAILY. DO NOT APPLY MORE THAN 16 GM DAILY TO ANY ONE AFFECTED JOINT. * Quantity: 1 Refills: 3 Donnie Blanco M.D.* Started 23-Jul-2013 [id number] GM Tube Belviq 10 MG Oral Tablet 1 bid for appetitie suppression * Quantity: 60 Refills: 0 Angelo Shanks M.D.* Started 26-Jun-2014 ActiveOndansetron 4 MG Oral Tablet Dispersible DISSOLVE 1 TABLET BY MOUTH EVERY 6 HOURS NEEDED FOR NAUSEA. MUST LAST 10 DAYS. * Quantity: 20 Refills: 0 Angelo Shanks M.D.* Started 15-Apr-2014 Active Allergies and Adverse Reactions Name Dates [...] lentigo (V13.3, Z87.2) Status: Resolved History of pancreatitis (V12.79, Z87.19) [...] Intramuscular Suspension Administered on:14-Mar-2009 Influenza Lot #: [id number] Administered on:18-Feb-2010 Influenza Administered on:11-Feb-2011 Influenza Administered [...] smoker Vital Signs Date Test Result Details 08-Aug-2014 15:21 BP Systolic 144 mm[Hg] Status: BP Diastolic 64 mm[Hg] Status: Weight 244.4 lb Status: Body Mass Index Calculated 38.28 kg/m2 Status: Body Surface Area Calculated 2.2 m2 Status: 31-Jul-2014 14:10 BP Systolic 146 mm[Hg] Status: BP Diastolic 80 mm[Hg] Status: Heart Rate 66 /min Status: Respiration Rate 22 /min Status: Weight 233 lb Status: Body Mass Index Calculated 36.49 kg/m2 Status: Body Surface Area Calculated 2.16 m2 Status: 24-Jul-2014 15:26 BP Systolic 112 mm[Hg] Status: BP Diastolic 68 mm[Hg] Status: Heart Rate 60 /min Status: Weight 233 lb Status: Body Mass Index Calculated 36.49 kg/m2 Status: Body Surface Area Calculated 2.16 m2 Status: 24-Jul-2014 13:09 BP Systolic 134 mm[Hg] Status: BP Diastolic 76 mm[Hg] Status: Heart Rate 66 /min Status: Respiration Rate 18 /min Status: Weight 234.25 lb Status: Height 67 in Status: O2 SAT 96 % Status: Body Mass Index Calculated 36.69 kg/m2 Status: Body Surface Area Calculated 2.16 m2 Status: 22-Jul-2014 15:35 BP Systolic 126 mm[Hg] Status: BP Diastolic 78 mm[Hg] Status: Heart Rate 66 /min Status: Respiration Rate 18 /min Status: Temperature 97.9 f Status: Weight 230 lb Status: O2 SAT 96 % Status: Body Mass Index Calculated 36.02 kg/m2 Status: Body Surface Area Calculated 2.15 m2 Status: 17-Jul-2014 10:51 BP Systolic 138 mm[Hg] Status: BP Diastolic 78 mm[Hg] Status: Heart Rate 60 /min Status: Respiration Rate 20 /min Status: Temperature 98.6 f Status: Weight 240 lb Status: Body Mass Index Calculated 37.59 kg/m2 Status: Body Surface Area Calculated 2.18 m2 Status: 11-Jul-2014 13:44 BP Systolic 142 mm[Hg] Status: BP Diastolic 82 mm[Hg] Status: Weight 239.4 lb Status: Body Mass Index Calculated 37.5 kg/m2 Status: Body Surface Area Calculated 2.18 m2 Status: Results Date Description Value Details 22-Jul-2014 15:26 Urinalysis, reflex to Micro and Culture ([facility]) 8016 pH 5.5 (Better) Range: 5.0-7.5 SP GRAVITY 1.030 (Better) Range: 1.010-1.030 APPEARANCE Cloudy (Abnormal) Range: Clear COLOR Red (Abnormal) Range: Straw-Yellow PROTEIN 30 mg/dL (Abnormal) Range: Negative-Trace GLUCOSE Negative mg/dL (Better) Range: Negative KETONES +/- mg/dL (Abnormal) Range: Negative BILIRUBIN 1+ (Abnormal) Range: Negative BLOOD 3+ (Abnormal) Range: Negative UROBIL 0.2 EU/dL (Better) Range: 0.2-1.0 NITRITE Positive (Abnormal) Range: Negative Comments: Specimen referred to Microbiology for Culture----- LEUKOCYTES 1+ (Abnormal) Range: Negative 16:15 Urine Microscopic [facility] Comments: Quantity not sufficient for concentration.Less than 10 ml received for analysis WBC 6-10 /HPF (Abnormal) Range: 0-5 Comments: Specimen referred to Microbiology for Culture----- RBC TNTC /HPF (Abnormal) Range: 0-2 HYAL CAST 6-10 /LPF (Abnormal) Range: 0-2 MUCUS 1+ /LPF (Better) Range: Negative-2+ BACTERIA 4+ /HPF (Abnormal) Range: Negative-Trace Comments: Specimen referred to Microbiology for Culture----- EPITH 3-5 /HPF (Better) Range: 0-10 24-Jul-2014 07:31 URINE CULTURE 5010 *URINE CULTURE Microbiology results (Better) Comments: URINE SOURCE: Clean CatchCOLONY COUNT>100,000 cfu/ml. of a Gram Neg. BacilliRESULT:Klebsiella pneumoniae (Isolate 1)Antibiotic Sensitivity Isolate 1-- ---------Ampicillin <=8 RAmpicillin/Sulbactam <=8 /4 SAugmentin <=8/4 SCefazolin <=8 SCefepime <=8 SCefoxitin <=8 SCeftazidime <=1 SCeftriaxone <=8 SCefuroxime <=4 SCiprofloxacin <=1 SErtapenem <=1 SGentamicin <=4 SImipenem <=4 SLevofloxacin <=2 SMeropenem <=4 SNitrofurantoin >64 RPiperacillin/Tazobactam <=16 STetracycline <=4 STobramycin <=4 STrimeth/Sulfa <=2/38 SS= Sensitive, I=Intermediate, R=Resistant, ESBL=Extended spectrum beta-lactamase enzymes produced, Ferdinand=Beta-lactamase positive, IB=Inducible Beta-lactamase enzymes known to be present.----- Plan of Care Planned Observations* Name Dates Details Planned Goals not documented Goal Planned Encounters* Appointment; Provider: Angelo Randhawa On 23-Jul-2015 14:30 * Appointment; Provider: Angelo Shanks On 14:00 * Appointment; Provider: Donnie Blanco On 16-Sep-2014 14:00 * Appointment; Provider: Angelo Shanks On 01-Sep-2014 14:45 * Appointment; Provider: Angelo Shanks On 26-Aug-2014 09:45 * Appointment; Provider: Angelo Randhawa On 31-Jan-2011 09:30 * Appointment; Provider: Angelo Randhawa On 22-Jan-2008 13:00 * Appointment; Provider: Angelo Randhawa On 11:00 * Appointment; Provider: Angelo Randhawa On 08-Oct-2007 08:00 * Appointment; Provider: Angelo Shanks On 14-Sep-2007 08:45 Instructions * Instructions not documented Encounters Appointment; Angelo Shanks Encounter Diagnosis: Problem not documented On 08-Aug-2014 15:00 Appointment; Kendrick Jason Encounter Diagnosis: Problem not documented On 07-Aug-2014 15:30 Appointment; Angelo Shanks Encounter Diagnosis: Problem not documented On 31-Jul-2014 14:15 Appointment; Angelo Randhawa Encounter Diagnosis: Problem not documented On 24-Jul-2014 15:15 Appointment; Donnie Blanco Encounter Diagnosis: Problem not documented On 24-Jul-2014 13:00 Appointment; Virginia Dougherty Encounter Diagnosis: Problem not documented On 23-Jul-2014 11:45 Appointment; Virginia Dougherty Encounter Diagnosis: Problem not documented On 22-Jul-2014 15:25 Appointment; Angelo Shanks Encounter Diagnosis: Problem not documented On 17-Jul-2014 10:45 Appointment; Angelo Shanks Encounter Diagnosis: Problem not documented On 11-Jul-2014 13:45 Appointment; Joel Montalvo Encounter Diagnosis: Problem not [...]
--- OUTSIDE RECORDS SUMMARY | 2017-06-16 14:01 | XMS REPORT | Summary of Care ---
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: Active Polyarthralgia (719.49, M25.50) Status: Active Insomnia (780.52, G47.00) Status: Active Allergic rhinitis (477.9, J30.9) Status: Active Edema (782.3, R60.9) Status: Active Encounter for screening for malignant neoplasm of colon (V76.51, Z12.11) Status: Active Neuropathic pain (729.2, M79.2) Status: Active Knee osteoarthritis (715.96, M17.9) Status: Active Dysphagia (787.20, R13.10) Status: Active Chronic obstructive pulmonary disease (496, J44.9) Status: Active Depression (311, F32.9) Status: Active Ulcer of esophagus (530.20, K22.10) Status: Active Pain in joint of right shoulder (719.41, M25.511) Status: Active Shoulder pain (719.41, M25.519) Status: Active 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, 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) Status: Active Rotator cuff tendonitis (726.10, M75.80) Status: Active Plantar fasciitis (728.71, M72.2) Status: Active Psoriasis (696.1, L40.9) Status: Active Nauseated (787.02, R11.0) Status: Active [...] Active Esophageal stenosis (530.3, K22.2) Status: Active Medications Name Dates Details DULoxetine HCl - 60 MG Oral Capsule Delayed Release Particles TAKE 2 CAPSULES BY MOUTH EVERY DAY Quantity: 60 Angelo Shanks M.D.* Started 13-Jul-2009 ActiveSingulair 10 MG Oral Tablet take one tablet by mouth every day * Quantity: 30 Refills: 2 Angelo Shanks M.D.* Started 06-Apr-2009 ActiveClopidogrel Bisulfate 75 MG Oral Tablet take [...] Refills: 0 Angelo Shanks M.D.* Started 13-Jul-2009 ActiveHydrocodone-Acetaminophen 10-325 MG Oral Tablet TAKE ONE TABLET BY MOUTH EVERY 4 TO 6 HOURS NEEDEDMAX 5 PER DAY*MAY FILL ON OR AFTER 05/28/14* * Quantity: 150 Refills: 0 Donnie Blanco M.D.* Started 28-Jan-2011 ActiveLisinopril 10 MG Oral Tablet take 1 tablet by mouth every day * Quantity: 30 Refills: 11 Angelo Randhawa M.D.* Started 11-Feb-2011 ActiveSucralfate 1 GM/10ML Oral Suspension 1 gm liquid before meals and at bedtime for 3 days * Quantity: 120 Refills: 0 Italia Bang M.D.* Started 01-Jan-2014 ActiveDexilant 60 MG Oral Capsule Delayed Release TAKE 1 CAPSULE Daily * Quantity: 30 Refills: 11 Italia Bang M.D.* Started 01-Jan-2014 ActiveTriamcinolone Acetonide 55 MCG/ACT INHA USE ONE SPRAY IN EACH NOSTRIL EVERY DAY * Quantity: 16.5 Refills: 0 Angelo Shanks M.D.* Started 02-Feb-2011 ActiveAtorvastatin Calcium 80 MG Oral Tablet TAKE 1 TABLET BY MOUTH EVERY NIGHT AT BEDTIME * Quantity: 30 Refills: 3 Angelo Randhawa M.D.* Started 05-Aug-2013 ActivePantoprazole Sodium 40 MG Oral Tablet Delayed Release TAKE 1 TABLET BY MOUTH 30 MINUTES BEFORE BREAKFAST DAILY * Quantity: 30 Refills: 11 Italia Bang M.D.* Started 08-Aug-2013 ActivePotassium Chloride Misti ER 10 MEQ Oral Tablet Extended Release take 4 tablets by mouth twice daily * Quantity: 240 Refills: 5 Angelo Shanks M.D.* Started 20-Sep-2010 ActiveOxyCONTIN 20 MG Oral Tablet ER 12 [...] Refills: 3 Donnie Blanco M.D.* Started 23-Jul-2013 [id number] GM Tube Clobetasol Propionate 0.05 % External Shampoo SHAMPOO HAIR/SCALP, LEAVE ON FOR 15 MINUTES AND RINSE WELL. USE DAILYFOR 4 WEEKS * Quantity: 118 Refills: 11 Angelo Shanks M.D.* Started 25-Mar-2014 ActiveSulfamethoxazole-TMP DS 800-160 MG Oral Tablet TAKE 1 TABLET BY MOUTH TWICE DAILY FOR 7 DAYS * Quantity: 14 Refills: 0 Angelo Shanks M.D.* Started 09-Sep-2013 ActiveMeloxicam 15 MG Oral Tablet TAKE 1 TABLET BY MOUTH EVERY DAY WITH FOOD * Quantity: 30 Refills: 0 Donnie Blanco M.D.* Started 19-Aug-2013 ActiveTriamcinolone Acetonide 0.1 % External Cream APPLY A SMALL AMOUNT TO THE AFFECTED AREAS 3 TIMES DAILY * Quantity: 45 Refills: 0 Angelo Shanks M.D.* Started ActiveSulfamethoxazole-TMP DS 800-160 MG Oral Tablet Take One Tablet By Mouth Twice Daily * Quantity: 10 Refills: 0 Angelo Shanks M.D.* Started 03-Jul-2012 ActiveZolpidem Tartrate 10 MG Oral Tablet TAKE 1 TABLET BY MOUTH EVERY DAY AT BEDTIME NEEDED * Quantity: 30 Refills: 2 Angelo Shanks M.D.* Started 30-Jul-2012 ActiveGabapentin 300 MG Oral Capsule TAKE ONE CAPSULE BY MOUTH TWICE DAILY * Quantity: 60 Refills: 0 Angelo Shanks M.D.* Started 01-Jun-2012 ActiveRanitidine HCl - 300 MG Oral Tablet Take 1 tablet at night * Quantity: 30 Refills: 4 Italia Bang M.D.* Started 18-Jan-2011 ActiveZetia 10 MG Oral Tablet take one tablet by mouth every day * Quantity: 30 Refills: 0 Angelo Shanks M.D.* Started 30-Mar-2010 ActiveFurosemide 80 MG Oral Tablet take one tablet by mouth every day * Quantity: 30 Refills: 5 Angelo Shanks M.D.* Started 16-Feb-2010 ActiveFurosemide 80 MG Oral Tablet take one tablet by mouth every day * Quantity: 30 Refills: 5 Angelo Shanks M.D.* Started 02-Jan-2009 ActiveProAir HFA 108 (90 Base) MCG/ACT Inhalation Aerosol Solution TAKE 2 PUFFS BY MOUTH EVERY 4 HOURS NEEDED * Quantity: 8.5 Refills: 11 Angelo Shanks M.D.* Started 04-May-2009 ActiveAspirin 81 MG Oral Tablet TAKE 1 TABLET DAILY. * Refills: 0 Angelo Randhawa M.D.* Started 04-Jan-2008 ActiveTriamcinolone Acetonide 55 MCG/ACT Nasal Aerosol USE ONE SPRAY IN EACH NOSTRIL EVERY DAY * Quantity: 16.5 Refills: 2 Angelo Shanks M.D.* Started 19-May-2014 ActivePhentermine HCl - 37.5 MG Oral Tablet TAKE 1 TABLET DAILY. * Quantity: 30 Refills: 0 Angelo Shanks M.D.* Started 23-Jul-2013 ActiveALPRAZolam 1 MG Oral Tablet TAKE 1 TABLET BY MOUTH FOUR TIMES DAILY NEEDED FOR ANXIETY * Quantity: 20 Refills: 0 Angelo Shanks M.D.* Started 30-Sep-2011 ActiveAtorvastatin Calcium 80 MG Oral Tablet TAKE 1 TABLET BY MOUTH EVERY NIGHT AT BEDTIME * Quantity: 30 Refills: 6 Angelo Randhawa M.D.* Started 23-Jan-2014 ActivePredniSONE 10 MG Oral Tablet iv po daily to start taper by 1 tab q3days * Quantity: 30 Refills: 0 Angelo Shanks M.D.* Started ActiveOndansetron 4 MG Oral Tablet Dispersible DISSOLVE 1 TABLET BY MOUTH EVERY 6 HOURS NEEDED FOR NAUSEA * Quantity: 20 Refills: 0 Angelo Shanks M.D.* Started 15-Apr-2014 ActiveLyrica 150 MG Oral Capsule TAKE 1 CAPSULE BY MOUTH THREE TIMES DAILY * Quantity: 90 Refills: 2 Angelo Shanks M.D.* Started 17-Sep-2013 ActiveTopiramate 50 MG Oral Tablet 1 at HS * Quantity: 30 Refills: 5 Angelo Shanks M.D.* Started 02-May-2014 ActiveAtenolol 50 MG Oral Tablet TAKE 1 TABLET BY MOUTH TWICE DAILY * Quantity: 30 Refills: 5 Angelo Shanks M.D.* Started 23-Sep-2013 ActivePredniSONE 20 MG Oral Tablet TAKE 3 TABLETS DAILY FOR 3 DAYS, THEN 2 TABLETS DAILY FOR 3 DAYS, THEN 1 TABLET DAILY FOR 3 DAYS. * Quantity: 18 Refills: 0 Bhavik Lopes M.D.* Started 14-Dec-2013 Active Allergies and Adverse Reactions Name Dates [...] Dilation Of Esoph (Less Than 30 Mm) LIPID PROFILE 1184 Ordered:15-Apr-2014 Immunization Name Dates Details Influenza Administered on:26-Jan-2009 Pneumo (Prevnar) Administered on:06-Mar-2009 Influenza A (H1N1) Monoval Vac Intramuscular Suspension Administered on:14-Mar-2009 Influenza Lot #: [id number] Administered on:18-Feb-2010 Influenza Administered on:11-Feb-2011 Influenza Administered [...] smoker Vital Signs Date Test Result Details 29-Apr-2014 15:59 BP Systolic 124 mm[Hg] Status: BP Diastolic 66 mm[Hg] Status: Weight 230.8 lb Status: Body Mass Index Calculated 36.15 kg/m2 Status: Body Surface Area Calculated 2.15 m2 Status: 29-Apr-2014 14:58 BP Systolic 124 mm[Hg] Status: BP Diastolic 60 mm[Hg] Status: Heart Rate 60 /min Status: Weight 224 lb Status: Body Mass Index Calculated 35.08 kg/m2 Status: Body Surface Area Calculated 2.12 m2 Status: 29-Apr-2014 13:40 BP Systolic 146 mm[Hg] Status: BP Diastolic 78 mm[Hg] Status: Heart Rate 70 /min Status: Respiration Rate 20 /min Status: Weight 229.375 lb Status: Height 67 in Status: O2 SAT 97 % Status: Body Mass Index Calculated 35.93 kg/m2 Status: Body Surface Area Calculated 2.14 m2 Status: Results Date Description Value Details Results [...] not documented On 08-Aug-2013 10:30 Appointment; Joel Motnalvo Encounter Diagnosis: Problem not documented On 08-Aug-2013 [...]
--- OUTSIDE RECORDS SUMMARY | 2017-06-16 14:02 | XMS REPORT ---
Author Author DELMI BYRNES [facility] Address [address] [place] [address] Care Team Providers Care Call Center Representative Name Role Phone DELMI BYRNES Unavailable PROBLEMS Type Condition ICD9-CM Code [id number] Code Onset Dates Condition Status SNOMED Code Problem Fibromyalgia M79.7 Active 347462245 Problem Acute gout involving toe of right foot, unspecified cause M10.9 Active 975530017 Problem Edema, unspecified type R60.9 Active 424120051 Problem Lumbar radiculopathy M54.16 Active 976405185 Problem Chronic depression F32.9 Active 414500117 Problem Chronic kidney disease, stage 2 (mild) N18.2 Active 378394791 Problem Constipation, unspecified constipation type K59.00 Active 88726415 Problem Prediabetes R73.03 Active 677882141 Problem Essential hypertension I10 Active 93721874 Problem Anxiety F41.9 Active 83312370 Problem Coronary artery disease involving [place] coronary artery, angina presence unspecified, unspecified whether [place] or transplanted heart I25.10 Active 6335868063632 Problem Depressive disorder, not elsewhere classified F32.9 Active 42114592 Problem Hyperlipidemia, unspecified hyperlipidemia type E78.5 Active 34367475 Problem Arthritis M19.90 Active 5616779 Problem Barretts esophagus with dysplasia K22.719 Active [id number] ALLERGIES No Information SOCIAL HISTORY Never Assessed PLAN OF CARE VITAL SIGNS MEDICATIONS Medication Instructions Dosage Frequency Start Date End Date Duration Status Duloxetine HCl 30 MG Orally 3 times a day 1 capsule 8h Active Alprazolam 1 MG Orally Once a day, hs 1 tablet Active RESULTS No Results PROCEDURES No Known procedures [...]
--- OUTSIDE RECORDS SUMMARY | 2017-06-16 14:02 | XMS REPORT | Summary of Care ---
Author Author [facility] Unknown Address [address] [place], [place] [id number] Phone Unavailable Care Team Providers Care Client Partner Name Role Phone Dimitris Alejandra, Tarik Stephens [...] Intramuscular Suspension Administered on:14-Mar-2009 Influenza Lot #: [id number] Administered on:18-Feb-2010 Influenza Administered on:11-Feb-2011 Influenza Administered [...] Shanks On 03-Mar-2014 16:00 * Appointment; Provider: Kendrick Jason On 24-Feb-2014 13:30 * Appointment; Provider: Angelo Randhawa On 31-Jan-2011 09:30 * Appointment; Provider: Angelo Randhawa On 22-Jan-2008 13:00 * Appointment; Provider: Angelo Randhawa On 11:00 * Appointment; Provider: Angelo Randhawa On 08-Oct-2007 08:00 * Appointment; Provider: Angelo Shanks On 14-Sep-2007 08:45 Instructions * Instructions not documented Encounters Appointment; Donnie Blanco Encounter Diagnosis: Problem not [...]
--- OUTSIDE RECORDS SUMMARY | 2017-06-16 14:03 | XMS REPORT | Summary of Care ---
Author Author Sydnee Alejandra, Yaniv Stephens Organization Unknown Address [address] [place], [place] [id number] Phone Unavailable Care Team Providers Care Singer Songwriter Name Role Phone Dimitris Alejandra, Tarik Stephens Unavailable Unavailable Merritt Alejandra, Marla Echavarria Unavailable Unavailable Bella Alejandra, Donnie Unavailable Unavailable Virginia Dougherty APRN Unavailable Unavailable Sydnee Alejandra, Yaniv Stepehns Unavailable Unavailable Angelo Shanks PP Unavailable Unavailable Unavailable Functional Status Functional Status Health Issues* Name Dates Details Functional status health issues are not documented Status: Cognitive Status Health Issues* Name Dates Details Cognitive status health issues are not documented Status: Problems Name Dates Details Hypokalemia (276.8, E87.6) Status: Active Insomnia (780.52, G47.00) Status: Active Allergic rhinitis (477.9, J30.9) Status: Active Edema (782.3, R60.9) Status: Active Psoriasis (696.1, L40.9) Status: Active Osteoarthritis (715.90, M19.90) Status: Active Peripheral neuropathy (356.9, G62.9) Status: Active 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, K22.70) Status: Active Arteriosclerotic heart disease (ASHD) (414.00, I25.10) Status: Active Anxiety (300.00, F41.9) Status: Active Chronic obstructive pulmonary disease (496, J44.9) Status: Active Depression (311, F32.9) Status: Active Fibromyalgia (729.1, M79.7) Status: Active Reflux esophagitis (530.11, K21.0) Status: Active Nicotine dependence (305.1, F17.200) Status: Active Pain, lumbar region (724.2, M54.5) Status: Active Obesity (278.00, E66.9) Status: Active Onychomycosis (110.1, B35.1) Status: Active Nausea (787.02, R11.0) Status: Active Candidiasis (112.9, B37.9) Status: Active UTI (lower urinary tract infection) (599.0, N39.0) Status: Active Low back pain radiating to right leg (724.2, M54.5) Status: Active Right hip pain (719.45, M25.551) Status: Active Hypertension (401.9, I10) Status: Active Hyperlipidemia (272.4, E78.5) Status: Active CAD (coronary atherosclerotic disease) (414.00, I25.10) Status: Active PTCA Status: Active Peripheral vascular disease (443.9, I73.9) Status: Active Medications Name Dates Details DULoxetine [...] Refills: 11 Angelo Randhawa M.D.* Started 11-Feb-2011 ActiveGabapentin 300 MG Oral Capsule TAKE ONE CAPSULE BY MOUTH TWICE DAILY * Quantity: 60 Refills: 0 Angelo Shanks M.D.* Started 01-Jun-2012 ActiveZolpidem Tartrate 10 MG Oral Tablet TAKE 1 TABLET BY MOUTH EVERY DAY AT BEDTIME NEEDED * Quantity: 30 Refills: 2 Angelo Shanks M.D.* Started 30-Jul-2012 ActiveTriamcinolone Acetonide 55 MCG/ACT INHA USE ONE [...] DAILY * Quantity: 30 Refills: 11 Italia M.D.* Started 08-Aug-2013 ActiveTriamcinolone Acetonide 0.1 % External Cream APPLY A SMALL AMOUNT TO THE AFFECTED AREAS 3 TIMES DAILY * Quantity: 45 Refills: 0 Angelo Shanks M.D.* Started ActiveLyrica 150 MG Oral Capsule TAKE 1 CAPSULE BY MOUTH THREE TIMES DAILY * Quantity: 90 Refills: 2 Angelo Shanks M.D.* Started 17-Sep-2013 ActiveBelviq 10 MG Oral Tablet TAKE 1 TABLET TWICE DAILY.*MUST LAST 30 DAYS* * Quantity: 60 Refills: 0 Donnie Blanco M.D.* Started 26-Jun-2014 ActiveVoltaren 1 % Transdermal Gel APPLY TO AREA, 4 GM OF GEL TO AFFECTED AREA TWICE DAILY. DO NOT APPLY MORE THAN 16 GM DAILY TO ANY ONE AFFECTED JOINT. * Quantity: 1 Refills: 3 Donnie Blanco M.D.* Started 23-Jul-2013 [id number] GM Tube Meloxicam 15 MG Oral Tablet TAKE 1 TABLET BY MOUTH EVERY DAY WITH FOOD * Quantity: 30 Refills: 3 Donnie Blanco M.D.* Started 19-Aug-2013 ActiveALPRAZolam 1 MG Oral Tablet TAKE 1 TABLET BY MOUTH FOUR TIMES DAILY NEEDED FOR ANXIETY * Quantity: 120 Refills: 0 Angelo Shanks M.D.* Started 30-Sep-2011 ActiveOndansetron 4 MG Oral Tablet Dispersible DISSOLVE 1 TABLET BY MOUTH EVERY 6 HOURS NEEDED FOR NAUSEA. MUST LAST 10 DAYS. * Quantity: 20 Refills: 0 Aneglo Shanks M.D.* Started 15-Apr-2014 ActiveNicotine 21-14-7 MG/24HR Transdermal Kit 21 mg [id number],14mgx2 wk,1qno1wp * Quantity: 1 Refills: 0 Angelo Shanks M.D.* Started 11-Jul-2014 ActiveTerbinafine HCl - 250 MG Oral Tablet TAKE 1 TABLET DAILY. * Quantity: 30 Refills: 5 Angelo Shanks M.D.* Started 11-Jul-2014 ActiveClotrimazole 10 MG Mouth/Throat Aubrey CHEW 1 AUBREY Every 4 hours * Quantity: 25 Refills: 0 Angelo Shanks M.D.* Started 17-Jul-2014 ActiveCiprofloxacin HCl - 500 MG Oral Tablet 1 tab po bid x 7 days * Quantity: 14 Refills: 0 KeenanrekhaVirginia APRN* Started 23-Jul-2014 ActiveOxyCONTIN 20 MG Oral Tablet ER 12 [...] Intramuscular Suspension Administered on:14-Mar-2009 Influenza Lot #: [id number] Administered on:18-Feb-2010 Influenza Administered on:11-Feb-2011 Influenza Administered [...] smoker Vital Signs Date Test Result Details 24-Jul-2014 15:26 BP Systolic 112 mm[Hg] Status: [...] Body Surface Area Calculated 2.18 m2 Status: 26-Jun-2014 14:31 BP Systolic 156 mm[Hg] Status: BP Diastolic 86 mm[Hg] Status: Heart Rate 56 /min Status: Respiration Rate 20 /min Status: Weight 234.5 lb Status: Height 67 in Status: O2 SAT 98 % Status: Body Mass Index Calculated 36.73 kg/m2 Status: Body Surface Area Calculated 2.16 m2 Status: Results Date Description Value Details 22-Jul-2014 15:26 Urinalysis, reflex to Micro and Culture ([facility]) 8016 pH 5.5 (Better) Range: [...] Culture----- EPITH 3-5 /HPF (Better) Range: 0-10 Plan of Care Planned Observations* Name Dates Details Planned Goals not documented Goal Planned Encounters* Appointment; Provider: Angelo Randhawa On 23-Jul-2015 14:30 * Appointment; Provider: Donnie Blanco On 16-Sep-2014 14:00 * Appointment; Provider: Angelo Shanks On 26-Aug-2014 09:45 * Appointment; Provider: Angelo Shanks On 08-Aug-2014 15:00 * Appointment; Provider: Angelo Shanks On 31-Jul-2014 14:15 * Appointment; Provider: Angelo Randhawa On 31-Jan-2011 09:30 * Appointment; Provider: Angelo Randhawa On 22-Jan-2008 13:00 * Appointment; Provider: Angelo Randhawa On 11:00 * Appointment; Provider: Angelo Randhawa On 08-Oct-2007 08:00 * Appointment; Provider: Angelo Shanks On 14-Sep-2007 08:45 Instructions * Instructions not documented Encounters Appointment; Angelo Randhawa Encounter Diagnosis: Problem not [...]
--- OUTSIDE RECORDS SUMMARY | 2017-06-16 14:03 | XMS REPORT | Summary of Care ---
Author Author Virginia Dougherty APRN Organization Unknown Address [address] [place], [place] [id number] Phone Unavailable Care Team Providers Care Ice Cream Machine Operator Name Role Phone Dimitris Alejandra, Tarik Stephens Unavailable Unavailable Merritt Alejandra, Marla Echavarria Unavailable Unavailable Bella Alejandra, Donnie Unavailable Unavailable Virginia Dougherty APRN Unavailable Unavailable Sydnee Alejandra, Yaniv Stephens Unavailable Unavailable Angelo Shanks PP Unavailable Unavailable Unavailable Functional Status Functional Status Health Issues* Name Dates Details Functional status health issues are not documented Status: Cognitive Status Health Issues* Name Dates Details Cognitive status health issues are not documented Status: Problems Name Dates Details Hypokalemia (276.8, E87.6) Status: Active Edema (782.3, R60.9) Status: Active Insomnia (780.52, G47.00) Status: Active Allergic rhinitis (477.9, J30.9) Status: Active Psoriasis (696.1, L40.9) Status: Active Peripheral vascular disease (443.9, I73.9) Status: Active Osteoarthritis (715.90, M19.90) Status: Active Peripheral neuropathy (356.9, G62.9) Status: Active 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, K22.70) Status: Active Arteriosclerotic heart disease (ASHD) (414.00, I25.10) Status: Active Anxiety (300.00, F41.9) Status: Active Chronic obstructive pulmonary disease (496, J44.9) Status: Active Depression (311, F32.9) Status: Active Hyperlipidemia (272.4, E78.5) Status: Active Hypertension (401.9, I10) Status: Active Fibromyalgia (729.1, M79.7) Status: Active Reflux esophagitis (530.11, K21.0) Status: Active Right hip pain (719.45, M25.551) Status: Active Nicotine dependence (305.1, F17.200) Status: Active Pain, lumbar region (724.2, M54.5) Status: Active Obesity (278.00, E66.9) Status: Active Onychomycosis (110.1, B35.1) Status: Active Nausea (787.02, R11.0) Status: Active Candidiasis (112.9, B37.9) Status: Active UTI (lower urinary tract infection) (599.0, N39.0) Status: Active Medications Name Dates Details DULoxetine [...] Refills: 3 Donnie Blanco M.D.* Started 23-Jul-2013 [id number] GM Tube Meloxicam 15 MG Oral Tablet [...] Refills: 0 Angelo Shanks M.D.* Started 15-Apr-2014 ActiveNicotine 21-14-7 MG/24HR Transdermal Kit 21 mg [id number],14mgx2 wk,3dpv3ck * Quantity: 1 Refills: 0 Angelo Shanks [...] 7 days * Quantity: 14 Refills: 0 Virginia Dougherty APRN* Started 23-Jul-2014 Active Allergies and Adverse Reactions Name Dates [...] Intramuscular Suspension Administered on:14-Mar-2009 Influenza Lot #: [id number] Administered on:18-Feb-2010 Influenza Administered on:11-Feb-2011 Influenza Administered [...] smoker Vital Signs Date Test Result Details 22-Jul-2014 15:35 BP Systolic 126 mm[Hg] Status: [...] 15:26 Urinalysis, reflex to Micro and Culture ([facility]) 8016 pH 5.5 (Better) Range: 5.0-7.5 SP [...] On 08-Aug-2014 15:00 * Appointment; Provider: Angelo Randhawa On 24-Jul-2014 15:15 * Appointment; Provider: Donnie Blanco On 24-Jul-2014 13:00 * Appointment; Provider: Angelo Randhawa On 31-Jan-2011 09:30 * Appointment; Provider: Angelo Randhawa On 22-Jan-2008 13:00 * Appointment; Provider: Angelo Randhawa On 11:00 * Appointment; Provider: Angelo Randhawa On 08-Oct-2007 08:00 * Appointment; Provider: Angelo Shanks On 14-Sep-2007 08:45 Instructions * Instructions not documented Encounters Appointment; Virginia Dougherty Encounter Diagnosis: Problem not documented On 23-Jul-2014 11:45 Appointment; Virginia Dougherty Encounter Diagnosis: Problem not documented On 22-Jul-2014 15:25 Appointment; Angelo Shanks Encounter Diagnosis: Problem not documented On 17-Jul-2014 10:45 Appointment; Angelo Shanks Encounter Diagnosis: Problem not documented On 11-Jul-2014 13:45 Appointment; Joel Montalvo Encounter Diagnosis: Problem not documented On 01-Jul-2014 11:30 Appointment; Merritt October Encounter Diagnosis: Problem not documented On 01-Jul-2014 07:30 Appointment; Donnie Blanco Encounter Diagnosis: Problem not documented On 26-Jun-2014 15:00 Appointment; Angelo Shanks Encounter Diagnosis: Problem not documented On 16-Jun-2014 09:45 Appointment; Bhavik Cohn Encounter Diagnosis: Problem not documented On 13-May-2014 13:30 Appointment; Merritt October Encounter Diagnosis: Problem not documented On 02-May-2014 [...] Problem not documented On 19-Aug-2013 14:15 Appointment; Merritt, [place] Encounter Diagnosis: Problem not documented On [...]
--- OUTSIDE RECORDS SUMMARY | 2017-06-16 14:04 | XMS REPORT ---
Author Author DELMI BYRNES [facility] Address [address] [place] [address] Care Team Providers Care Inspector Wire Rope Name Role Phone DELMI BYRNES Unavailable PROBLEMS Type Condition ICD9-CM Code [id number] Code Onset Dates Condition Status SNOMED Code Problem Coronary artery disease involving [place] coronary artery, angina presence unspecified, unspecified whether [place] or transplanted heart I25.10 Active 9718018671862 Problem Acute gout involving toe of right foot, unspecified cause M10.9 Active 223707789 Problem Edema, unspecified type R60.9 Active 349552202 Problem Lumbar radiculopathy M54.16 Active 233754585 Problem Chronic depression F32.9 Active 299854959 Problem Chronic kidney disease, stage 2 (mild) N18.2 Active 427397343 Problem Constipation, unspecified constipation type K59.00 Active 52147984 Problem Prediabetes R73.03 Active 304807207 Problem Essential hypertension I10 Active 13954549 Problem Hyperlipidemia, unspecified hyperlipidemia type E78.5 Active 02902625 Problem Anxiety F41.9 Active 90779818 Problem Depressive disorder, not elsewhere classified F32.9 Active 61961194 Problem Arthritis M19.90 Active 0055490 Problem Barretts esophagus with dysplasia K22.719 Active 0394837205726728 Problem Fibromyalgia M79.7 Active 906046203 ALLERGIES Unknown Allergies SOCIAL HISTORY No smoking Hx information available PLAN OF CARE VITAL SIGNS MEDICATIONS Medication Instructions Dosage Frequency Start Date End Date Duration Status Lyrica 150 MG Orally 3 times a day 1 capsule 8h 28 days Active RESULTS No Results PROCEDURES No Known procedures IMMUNIZATIONS No Known Immunizations
--- OUTSIDE RECORDS SUMMARY | 2017-06-16 14:04 | XMS REPORT ---
Author Author DELMI BYRNES [facility] Address [address] [place] [address] Care Team Providers Care Boat Carpenter Mechanic Name Role Phone DELMI BYRNES Unavailable PROBLEMS Type Condition ICD9-CM Code [id number] Code Onset Dates Condition Status SNOMED Code Problem Depressive disorder, not elsewhere classified F32.9 Active 87285014 Problem Hyperlipidemia, unspecified hyperlipidemia type E78.5 Active 64426576 Problem Barretts esophagus with dysplasia K22.719 Active 3075768060746155 Assessment Acute gout involving toe of right foot, unspecified cause M10.9 Mar, Active 475429100 Problem Acute gout involving toe of right foot, unspecified cause M10.9 Active 248961668 Problem Edema, unspecified type R60.9 Active 058140314 Problem Arthritis M19.90 Active 7070458 Problem Anxiety F41.9 Active 20477421 Problem Coronary artery disease involving [place] coronary artery, angina presence unspecified, unspecified whether te[place] or transplanted heart I25.10 Active 3089903724862 Problem Fibromyalgia M79.7 Active 219091826 ALLERGIES Substance Reaction Event Type Date Status N.K.D.A. Unknown Non Drug Allergy Mar, Unknown SOCIAL HISTORY No smoking Hx information available PLAN OF CARE VITAL SIGNS Height 67 in 2016-03-31 Weight 234 lbs 2016-03-31 Heart Rate 68 bpm 2016-03-31 Respiratory Rate 18 2016-03-31 BMI 36.65 kg/m2 2016-03-31 Blood pressure systolic 144 mmHg 2016-03-31 Blood pressure diastolic 86 mmHg 2016-03-31 MEDICATIONS Medication Instructions Dosage Frequency Start Date End Date Duration Status Folic Acid 1 MG Orally twice a day 1 tablet 12h Active Pantoprazole Sodium 40 MG Orally Once a day 1 tablet 24h Active Colace 100 MG Orally Once a day 1 capsule as needed 24h Active Exelon 4.6 MG/24HR Transdermal Once a day 1 patch to skin 24h Active Lyrica 150 MG Orally t i d 1 capsule Active Aspirin 325 MG Orally Once a day 1 tablet 24h Active Ranitidine HCl 150 MG Orally twice a day 1 tablet at bedtime 12h Active Imodium A-D 2 MG Orally 8 time(s) a day 1 tablet Active Myrbetriq 50 MG Orally Once a day 1 tablet 24h Active VESIcare 10 MG Orally Once a day 1 tablet 24h Active Multivitamin Adult - Active Oxycodone HCl 5 mg Orally every 3 hrs as needed 1 tablet Mar, Apr, 30 days Active Duloxetine HCl 30 MG Orally twice a day 1 capsule 12h Active Zyrtec Allergy 10 MG Orally Once a day 1 tablet 24h Active Triamcinolone Acetonide 0.1 % Externally Twice a day 1 application to affected area 12h Active Atenolol 50 mg Orally twice a day 1 tablet 12h Active Risperdal 1 MG Orally Once a day 1 tablet 24h Active Cholecalciferol 1000 UNIT Orally Once a day 2 capsules 24h Active Loratadine 10 MG Orally Once a day 1 tablet 24h Active Tramadol HCl 50 MG Orally every 6 hrs 1 tablet as needed 6h Active RESULTS Name Result Date Reference Range URIC ACID, SERUM 2016-03-31 Uric Acid, Serum 7.4 2.5-7.1 BMP 2016-03-31 Glucose, Serum 127 65-99 BUN 13 8-27 Creatinine, Serum 1.14 0.57-1.00 eGFR If NonAfricn Am 52 >59 eGFR If Africn Am 60 >59 BUN/Creatinine Ratio 11 11-26 Sodium, Serum 142 136-144 Potassium, Serum 4.3 3.5-5.2 Chloride, Serum 103 97-106 Carbon Dioxide, Total 24 18-29 Calcium, Serum 9.2 8.7-10.3 PROCEDURES Procedure Date Ordered Related Diagnosis Body Site LAB NOT BILLED BY [facility] Mar 31, 2016 Office Visit, Est Pt., Level 2 Mar 31, 2016 VENIPUNCT, ROUTINE* Mar 31, 2016 IMMUNIZATIONS No Known Immunizations
--- OUTSIDE RECORDS SUMMARY | 2017-06-16 14:04 | XMS REPORT | Summary of Care ---
Author Author Dimitris Alejandra, Tarik Stephens Organization Unknown Address [address] [place], [place] [id number] Phone Unavailable Care Team Providers Care Home Security Alarm Installer Name Role Phone Dimitris Alejandra, Tarik Stephens [...] Status: Active Nausea (787.02, R11.0) Status: Active Medications Name Dates Details DULoxetine [...] Refills: 3 Donnie Blanco M.D.* Started 23-Jul-2013 [id number] GM Tube Meloxicam 15 MG Oral Tablet [...] ActiveNicotine 21-14-7 MG/24HR Transdermal Kit 21 mg htlxud6js,14mgx2 wk,7emq2bh * Quantity: 1 Refills: 0 Angelo Shanks M.D.* Started 11-Jul-2014 ActiveTerbinafine HCl - 250 MG Oral Tablet TAKE 1 TABLET DAILY. * Quantity: 30 Refills: 5 Angelo Shanks M.D.* Started 11-Jul-2014 Active Allergies and Adverse Reactions Name Dates [...] Intramuscular Suspension Administered on:14-Mar-2009 Influenza Lot #: [id number] Administered on:18-Feb-2010 Influenza Administered on:11-Feb-2011 Influenza Administered [...] smoker Vital Signs Date Test Result Details 11-Jul-2014 13:44 BP Systolic 142 mm[Hg] Status: [...] low threshold) Range: >60 EST GFR, NON-AFR FINNISH 45 ml/min (Below low threshold) Range: >60 Comments: EST GFR is reported in ml/min per 1.73 m2 of body surface area. For -Filipino, please multiple result by 1.2.----- GLUCOSE 91 [...] Shanks On 08-Aug-2014 15:00 * Appointment; Provider: Donnie Blanco On 24-Jul-2014 [...]
--- OUTSIDE RECORDS SUMMARY | 2017-06-16 14:04 | XMS REPORT ---
Author Author DELMI BYRNES [facility] Address [address] [place] [address] Care Team Providers Care Live In Housekeeper Nanny Name Role Phone DELMI BYRNES Unavailable PROBLEMS Type Condition ICD9-CM Code XIA27-WC Code Onset Dates Condition Status SNOMED Code Problem Barretts esophagus with dysplasia K22.719 Active 2833486542914017 Problem Depressive disorder, not elsewhere classified F32.9 Active 21228936 Problem Edema, unspecified type R60.9 Active 399197310 Problem Coronary artery disease involving circle coronary artery, angina presence unspecified, unspecified whether circle or transplanted heart I25.10 Active 9938719153409 Problem Anxiety F41.9 Active 73410577 Problem Hyperlipidemia, unspecified hyperlipidemia type E78.5 Active 79699908 Problem Fibromyalgia M79.7 Active 402590344 Problem Arthritis M19.90 Active 6825444 ALLERGIES Unknown Allergies SOCIAL HISTORY No smoking Hx information available PLAN OF CARE VITAL SIGNS MEDICATIONS Unknown Medications RESULTS No Results PROCEDURES No Known procedures IMMUNIZATIONS No Known Immunizations
--- OUTSIDE RECORDS SUMMARY | 2017-06-16 14:04 | XMS REPORT ---
Author Author DELMI BYRNES [facility] Address [address] [place] [address] Care Team Providers Care Crabbing Machine Operator Name Role Phone DELMI BYRNES Unavailable PROBLEMS Type Condition ICD9-CM Code XAZ82-DN Code Onset Dates Condition Status SNOMED Code Problem Fibromyalgia M79.7 Active 560765549 Problem Acute gout involving toe of right foot, unspecified cause M10.9 Active 337784432 Problem Edema, unspecified type R60.9 Active 779537076 Problem Lumbar radiculopathy M54.16 Active 162385847 Problem Chronic depression F32.9 Active 553729578 Problem Chronic kidney disease, stage 2 (mild) N18.2 Active 433651633 Problem Constipation, unspecified constipation type K59.00 Active 67349585 Problem Prediabetes R73.03 Active 374861186 Problem Essential hypertension I10 Active 45851296 Problem Anxiety F41.9 Active 90817390 Problem Coronary artery disease involving [place] coronary artery, angina presence unspecified, unspecified whether [place] or transplanted heart I25.10 Active 6534829920286 Problem Depressive disorder, not elsewhere classified F32.9 Active 87329943 Problem Hyperlipidemia, unspecified hyperlipidemia type E78.5 Active 29784539 Problem Arthritis M19.90 Active 7502497 Problem Barretts esophagus with dysplasia K22.719 Active 4328925421190131 ALLERGIES No Information SOCIAL HISTORY Never Assessed PLAN OF CARE VITAL SIGNS MEDICATIONS Unknown Medications RESULTS Name Result Date Reference Range A1C (IN HOUSE) 2016-08-01 A1C IN HOUSE 5.6 4.3 - 5.6 % Previous A1c none available Lot [id number] Exp date May 2018 PROCEDURES Procedure Date Ordered Result Body Site GLYCATED HEMOGLOBIN TEST August 01, 2016 IMMUNIZATIONS No Known Immunizations MEDICAL (GENERAL) HISTORY [...]
--- OUTSIDE RECORDS SUMMARY | 2017-06-16 14:05 | XMS REPORT | Summary of Care ---
Author Author Dimitris Alejandra, Tarik Stephens Organization Unknown Address [address] [place], [place] [id number] Phone Unavailable Care Team Providers Care Vice Chancellor Name Role Phone Dimitris Alejandra, Tarik Stephens [...] not documented Status: Problems Name Dates Details Insomnia (780.52, G47.00) Status: Active Edema (782.3, R60.9) Status: Active Onychomycosis (110.1, B35.1) Status: Active Hyperlipidemia (272.4, E78.5) Status: Active Allergic rhinitis (477.9, J30.9) Status: Active Nicotine dependence (305.1) Status: Active Osteoarthritis (715.90, M19.90) Status: Active Reflux esophagitis (530.11, K21.0) Status: Active 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, K22.70) Status: Active Peripheral neuropathy (356.9, G62.9) Status: Active Hypokalemia (276.8, E87.6) Status: Active Anxiety (300.00, F41.9) Status: Active Obesity (278.00, E66.9) Status: Active Fibromyalgia (729.1, M79.7) Status: Active Hypertension (401.9, I10) Status: Active CAD (coronary atherosclerotic disease) (414.00, I25.10) Status: Active Chronic obstructive pulmonary disease (496, J44.9) Status: Active Depression (311, F32.9) Status: Active Nausea (787.02, R11.0) Status: Active Low back pain radiating to [...] mouth twice daily * Quantity: 240 Refills: 0 Angelo Shanks M.D.* Started 20-Sep-2010 ActiveRanitidine HCl - 300 MG Oral Tablet TAKE 1 TABLET BY MOUTH THREE TIMES DAILY * Quantity: 90 Refills: 3 Italia Bang M.D.* Started 18-Jan-2011 ActiveHydrocodone-Acetaminophen 10-325 MG Oral Tablet TAKE ONE TABLET BY MOUTH EVERY 4 TO 6 HOURS NEEDEDMAX 5 PER DAYMAY FILL ON OR AFTER 10/20/14* * Quantity: 150 Refills: 0 Donnie Blanco [...] Refills: 2 Angelo Shanks M.D.* Started 30-Jul-2012 ActiveNicotine 21-14-7 MG/24HR Transdermal Kit 21 mg rofpeb9wb,14mgx2 wk,0sdl6py * Quantity: 1 Refills: 0 Angelo Shanks M.D.* Started 11-Jul-2014 ActiveTerbinafine HCl - 250 MG Oral Tablet TAKE 1 TABLET DAILY. * Quantity: 30 Refills: 5 Angelo Shanks M.D.* Started 11-Jul-2014 ActiveClotrimazole 10 MG Mouth/Throat Aubrey CHEW 1 AUBREY Every 4 hours * Quantity: 25 Refills: 0 Angelo Shanks M.D.* Started 17-Jul-2014 ActivePantoprazole Sodium 40 MG Oral Tablet Delayed Release TAKE 1 TABLET BY MOUTH 30 MINUTES BEFORE BREAKFAST DAILY * Quantity: 30 Refills: 11 October Justyn* Started 08-Aug-2013 ActiveMeloxicam 15 MG Oral [...] Refills: 3 Donnie Blanco M.D.* Started 23-Jul-2013 [id number] GM Tube Belviq 10 MG Oral Tablet 1 bid for appetitie suppression * Quantity: 60 Refills: 0 Angelo Shanks M.D.* Started 26-Jun-2014 ActiveOndansetron 4 MG Oral Tablet Dispersible DISSOLVE 1 TABLET BY MOUTH EVERY 6 HOURS NEEDED FOR NAUSEA. MUST LAST 10 DAYS. * Quantity: 20 Refills: 0 Angelo Shanks M.D.* Started 15-Apr-2014 ActiveAtenolol 50 MG Oral Tablet TAKE 1 TABLET BY MOUTH TWICE DAILY * Quantity: 30 Refills: 0 Angelo Shanks M.D.* Started 23-Sep-2013 ActiveLyrica 150 MG Oral Capsule TAKE 1 CAPSULE BY MOUTH THREE TIMES DAILY * Quantity: 90 Refills: 0 Angelo Shanks M.D.* Started 17-Sep-2013 ActiveTriamcinolone Acetonide 55 MCG/ACT Nasal Aerosol USE ONE SPRAY IN EACH NOSTRIL EVERY DAY * Quantity: 16.5 Refills: 0 Angelo Shanks M.D.* Started 19-May-2014 ActiveAtorvastatin Calcium 80 MG Oral Tablet TAKE 1 TABLET BY MOUTH EVERY NIGHT AT BEDTIME * Quantity: 30 Refills: 6 Angelo Randhawa M.D.* Started 23-Jan-2014 ActiveCefuroxime Axetil 500 MG Oral Tablet TAKE 1 TABLET BY MOUTH TWICE DAILY * Quantity: 20 Refills: 0 Angelo Shanks M.D.* Started 29-Jul-2014 ActiveClotrimazole 10 MG Mouth/Throat Lozenge CHEW 1 AUBREY Every 4 hours * Quantity: 25 Refills: 0 Angelo Shanks M.D.* Started 13-Aug-2014 ActiveOxyCONTIN 20 MG Oral Tablet ER 12 Hour Abuse-Deterrent TAKE 1 TABLET Q 12HRSMUST LAST 30 DAYS*MAY FILL ON OR AFTER 10/20/14* * Quantity: 60 Refills: 0 Donnie Blanco [...] Intramuscular Suspension Administered on:14-Mar-2009 Influenza Lot #: [id number] Administered on:18-Feb-2010 Influenza Administered on:11-Feb-2011 Influenza Administered [...] smoker Vital Signs Date Test Result Details 18-Sep-2014 10:03 BP Systolic 114 mm[Hg] Status: BP Diastolic 82 mm[Hg] Status: 16-Sep-2014 14:35 BP Systolic 170 mm[Hg] Status: BP Diastolic 90 mm[Hg] Status: Heart Rate 70 /min Status: Respiration Rate 22 /min Status: Weight 239.25 lb Status: Height 67 in Status: O2 SAT 96 % Status: Body Mass Index Calculated 37.47 kg/m2 Status: Body Surface Area Calculated 2.18 m2 Status: Results Date Description Value Details Results not documented Plan of Care Planned Observations* Name Dates Details Planned Goals not documented Goal Planned Encounters* Appointment; Provider: Angelo Randhawa On 23-Jul-2015 14:30 * Appointment; Provider: Donnie Blanco On 15:15 * Appointment; Provider: Angelo Shanks On 14:00 * Appointment; Provider: Angelo Randhawa On 31-Jan-2011 09:30 * Appointment; Provider: Angelo Randhawa On 22-Jan-2008 13:00 * Appointment; Provider: Angelo Randhawa On 11:00 * Appointment; Provider: Angelo Randhawa On 08-Oct-2007 08:00 * Appointment; Provider: Angelo Shanks On 14-Sep-2007 08:45 Instructions * Instructions not documented Encounters Appointment; Angelo Shanks Encounter Diagnosis: Problem not documented On 18-Sep-2014 10:15 Appointment; Donnie Blanco Encounter Diagnosis: Problem not documented On 16-Sep-2014 14:00 Appointment; Angelo Shanks Encounter Diagnosis: Problem not documented On 01-Sep-2014 14:45 Appointment; Angelo Shanks Encounter Diagnosis: Problem not documented On 26-Aug-2014 09:45 Appointment; Angelo Shanks Encounter Diagnosis: Problem [...]
--- OUTSIDE RECORDS SUMMARY | 2017-06-16 14:06 | XMS REPORT | Summary of Care ---
Author Author Bella Alejandra, Donnie Jones Unknown Address Unknown Phone Unavailable Care Team Providers Care Storeroom Attendant Name Role Phone Dimitris Alejandra, Tarik Stephens Unavailable Unavailable Merritt Alejandra, Marla Echavarria Unavailable Unavailable Donnie Blanco M.D. Unavailable Unavailable Sydnee Alejandra, Yaniv Stephens Unavailable Unavailable Angelo Shanks PP Unavailable Unavailable Unavailable Functional Status Functional Status Health Issues* Name Dates Details Functional status health issues are not documented Status: Cognitive Status Health Issues* Name Dates Details Cognitive status health issues are not documented Status: Problems Name Dates Details Chronic obstructive pulmonary disease (496, J44.9) Status: Active CAD (coronary atherosclerotic disease) (414.00, I25.10) Status: Active Depression (311, F32.9) Status: Active Hyperlipidemia (272.4, E78.5) Status: Active Hypertension (401.9, I10) Status: Active Allergic rhinitis (477.9, J30.9) Status: Active Anxiety (300.00, F41.9) Status: Active Insomnia (780.52, G47.00) Status: Active Hypokalemia (276.8, E87.6) Status: Active Edema (782.3, R60.9) Status: Active Fibromyalgia (729.1, M79.7) Status: Active Obesity (278.00, E66.9) Status: Active Osteoarthritis (715.90, M19.90) Status: Active Peripheral neuropathy (356.9, G62.9) Status: Active Reflux esophagitis (530.11, K21.0) Status: Active 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 DO NOT APPLY MORE THAN 16 GM DAILY TO ANY ONE AFFECTED JOINT. * Quantity: 1 Refills: 3 Donnie Blanco M.D.* Started 23-Jul-2013 [id number] GM Tube Phentermine HCl - 37.5 MG Oral Tablet TAKE 1 TABLET BY MOUTH DAILY FOR APPETITE SUPPRESSION * Quantity: 30 Refills: 0 Angelo Shanks M.D.* Started 23-Jul-2013 ActivePantoprazole Sodium 40 MG Oral Tablet Delayed Release TAKE 1 TABLET BY MOUTH 30 MINUTES BEFORE BREAKFAST DAILY * Quantity: 30 Refills: 11 Italia Bang M.D.* Started 08-Aug-2013 ActiveMeloxicam 15 MG Oral Tablet TAKE 1 TABLET BY MOUTH EVERY DAY WITH FOOD * Quantity: 30 Refills: 3 Donnie Blanco M.D.* Started 19-Aug-2013 ActiveLyrica 150 MG Oral Capsule TAKE 1 CAPSULE BY MOUTH THREE TIMES DAILY * Quantity: 90 Refills: 0 Angelo Shanks M.D.* Started 17-Sep-2013 ActiveAtenolol 50 MG Oral Tablet TAKE 1 TABLET BY MOUTH TWICE DAILY * Quantity: 30 Refills: 5 Angelo Shanks M.D.* Started 23-Sep-2013 ActiveNicotine 21-14-7 MG/24HR Transdermal Kit 21 mg dvaemm5rg,14mgx2 wk,3lua4nq * Quantity: 1 Refills: 0 Angelo Shanks M.D.* Started 11-Jul-2014 ActiveTerbinafine HCl - 250 MG Oral Tablet TAKE 1 TABLET DAILY. * Quantity: 30 Refills: 5 Angelo Shanks M.D.* Started 11-Jul-2014 ActiveOndansetron 4 MG Oral Tablet Dispersible DISSOLVE 1 TABLET BY MOUTH EVERY 6 HOURS NEEDED FOR NAUSEA. MUST LAST 10 DAYS. * Quantity: 20 Refills: 0 Angelo Shanks M.D.* Started 15-Apr-2014 ActiveTriamcinolone Acetonide 55 MCG/ACT Nasal Aerosol USE ONE SPRAY IN EACH NOSTRIL EVERY DAY * Quantity: 16.5 Refills: 0 Angelo Shanks M.D.* Started 19-May-2014 ActiveAtorvastatin Calcium 80 MG Oral Tablet TAKE 1 TABLET BY MOUTH EVERY NIGHT AT BEDTIME * Quantity: 30 Refills: 6 Angelo Randhawa M.D.* Started 23-Jan-2014 ActiveClotrimazole 10 MG Mouth/Throat Lozenge CHEW 1 AUBREY Every 4 hours * Quantity: 25 Refills: 0 Angelo Shanks M.D.* Started 13-Aug-2014 ActiveTriamcinolone Acetonide 0.1 % External Cream APPLY A SMALL AMOUNT TO THE AFFECTED AREAS 3 TIMES DAILY * Quantity: 45 Refills: 0 Angelo Shanks M.D.* Started ActiveCefuroxime Axetil 500 MG Oral Tablet TAKE 1 TABLET BY MOUTH TWICE DAILY * Quantity: 10 Refills: 0 Angelo Shanks M.D.* Started 29-Jul-2014 Active Allergies and Adverse Reactions Name Dates Details No Known Drug Allergies Status: Active Eggs Status: Active Milk (cow's) Status: Active Past Medical History Name Dates Details History of Acute Myocardial Infarction (V12.59) Status: Resolved History of Arthropathy (716.90, M12.9) Status: Resolved History of Bowel incontinence (787.60, R15.9) Status: Resolved History of Difficulty swallowing (787.20, R13.10) Status: Resolved History of Dyspepsia (536.8, R10.13) Status: Resolved History of earache (V12.49, Z86.69) [...] edema (V12.69, Z87.09) Status: Resolved History of Right hip pain (719.45, M25.551) Status: Resolved History of Spontaneous ecchymosis (782.7, [...] Intramuscular Suspension Administered on:14-Mar-2009 Influenza Lot #: [id number] Administered on:18-Feb-2010 Influenza Administered on:11-Feb-2011 Influenza Administered [...] smoker Vital Signs Date Test Result Details 09:53 BP Systolic 136 mm[Hg] Status: BP Diastolic 80 mm[Hg] Status: Heart Rate 78 /min Status: Respiration Rate 22 /min Status: Weight 239 lb Status: Height 67 in Status: Body Mass Index Calculated 37.43 kg/m2 Status: Body Surface Area Calculated 2.18 m2 Status: Results Date Description Value Details Results not documented Plan of Care Planned Observations* Name Dates Details Planned Goals not documented Goal Planned Encounters* Appointment; Provider: Angelo Randhawa On 23-Jul-2015 14:30 * Appointment; Provider: Donnie Blanco On 02-Jan-2015 11:15 * Appointment; Provider: Italia Bang On 09:00 * Appointment; Provider: Joel Montalvo On 08:30 * Appointment; Provider: Malik Denton On 14:00 * Appointment; Provider: Angelo Shanks On 10:15 * Appointment; Provider: Angelo Randhawa On 31-Jan-2011 09:30 * Appointment; Provider: Angelo Randhawa On 22-Jan-2008 13:00 * Appointment; Provider: Angelo Randhawa On 11:00 * Appointment; Provider: Angelo Randhawa On 08-Oct-2007 08:00 * Appointment; Provider: Angelo Shanks On 14-Sep-2007 08:45 Instructions * Instructions not documented Encounters Appointment; Donnie Blanco Encounter Diagnosis: Problem not documented On 09:45 Appointment; Angelo Shanks Encounter Diagnosis: Problem [...]
--- OUTSIDE RECORDS SUMMARY | 2017-06-16 14:06 | XMS REPORT ---
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 Active 5838526169835728 Problem Depressive disorder, not elsewhere classified F32.9 Active 74164336 Problem Edema, unspecified type R60.9 Active 279088843 Problem Coronary artery disease involving [place] coronary artery, angina presence unspecified, unspecified whether [place] or transplanted heart I25.10 Active 7348478257520 Problem Anxiety F41.9 Active 70708319 Problem Hyperlipidemia, unspecified hyperlipidemia type E78.5 Active 47818519 Problem Fibromyalgia M79.7 Active 673955381 Problem Arthritis M19.90 Active 7507856 ALLERGIES Unknown Allergies SOCIAL HISTORY No smoking Hx information available PLAN OF CARE VITAL SIGNS MEDICATIONS Medication Instructions Dosage Frequency Start Date End Date Duration Status Tramadol HCl 50 mg Orally 3 times a day 1 tablet as needed (PT IN [facility]) 8h Feb, 30 days Active RESULTS No Results PROCEDURES No Known procedures IMMUNIZATIONS No Known Immunizations
--- OUTSIDE RECORDS SUMMARY | 2017-06-16 14:06 | XMS REPORT ---
Author Author DELMI BYRNES [facility] Address [address] [place] [address] Care Team Providers Care Airdox Fitter Name Role Phone DELMI BYRNES Unavailable PROBLEMS Type Condition ICD9-CM Code ZQA00-NW Code Onset Dates Condition Status SNOMED Code Problem Coronary artery disease involving [place] coronary artery, angina presence unspecified, unspecified whether [place] or transplanted heart I25.10 Active 0973035625993 Problem Acute gout involving toe of right foot, unspecified cause M10.9 Active 801006798 Problem Edema, unspecified type R60.9 Active 070834315 Problem Lumbar radiculopathy M54.16 Active 985711091 Problem Chronic depression F32.9 Active 102387995 Problem Chronic kidney disease, stage 2 (mild) N18.2 Active 922624377 Problem Constipation, unspecified constipation type K59.00 Active 05349913 Problem Prediabetes R73.03 Active 561457847 Problem Essential hypertension I10 Active 69559351 Problem Hyperlipidemia, unspecified hyperlipidemia type E78.5 Active 97136322 Problem Anxiety F41.9 Active 28291997 Problem Depressive disorder, not elsewhere classified F32.9 Active 91555394 Problem Arthritis M19.90 Active 5645956 Problem Barretts esophagus with dysplasia K22.719 Active 7965040028486731 Problem Fibromyalgia M79.7 Active 875781826 ALLERGIES Unknown Allergies SOCIAL HISTORY No smoking Hx information available PLAN OF CARE VITAL SIGNS MEDICATIONS Medication Instructions Dosage Frequency Start Date End Date Duration Status Diclofenac Sodium 75 MG Orally 2 times a day 1 tablet with food or milk 12h May, Active RESULTS No Results PROCEDURES No Known procedures IMMUNIZATIONS No Known Immunizations
--- OUTSIDE RECORDS SUMMARY | 2017-06-16 14:06 | XMS REPORT | Summary of Care ---
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, K22.70) Status: Active Right hip pain (719.45, M25.551) Status: Active Right leg pain (729.5, M79.604) Status: Active Anxiety (300.00, F41.9) Status: Active CAD (coronary atherosclerotic disease) (414.00, I25.10) Status: Active Chronic obstructive pulmonary disease (496, J44.9) Status: Active Depression (311, F32.9) Status: Active Hypertension (401.9, I10) Status: Active Hyperlipidemia (272.4, E78.5) Status: Active Obesity (278.00, E66.9) Status: Active Hypokalemia (276.8, E87.6) Status: Active Peripheral neuropathy (356.9, G62.9) Status: Active Reflux esophagitis (530.11, K21.0) Status: Active Fibromyalgia (729.1, M79.7) Status: Active Allergic rhinitis (477.9, J30.9) Status: Active Low back pain radiating to right leg (724.2, M54.5) Status: Active Renal insufficiency (593.9, N28.9) Status: Active Medications Name Dates Details DULoxetine [...] Refills: 2 Angelo Shanks M.D.* Started 30-Jul-2012 ActiveTerbinafine HCl - 250 MG Oral Tablet TAKE 1 TABLET DAILY. * Quantity: 30 Refills: 5 Angelo Shanks M.D.* Started 11-Jul-2014 ActivePantoprazole Sodium 40 MG Oral Tablet Delayed [...] Refills: 3 Donnie Blanco M.D.* Started 23-Jul-2013 [id number] GM Tube Ondansetron 4 MG Oral Tablet Dispersible DISSOLVE 1 [...] Refills: 0 Angelo Shanks M.D.* Started 13-Aug-2014 ActiveLyrica 150 MG Oral Capsule TAKE 1 CAPSULE BY MOUTH THREE TIMES DAILY * Quantity: 90 Refills: 0 Angelo Shanks M.D.* Started 17-Sep-2013 ActiveTriamcinolone Acetonide 0.1 % External Cream APPLY A SMALL AMOUNT TO THE AFFECTED AREAS 3 TIMES DAILY * Quantity: 45 Refills: 0 Angelo Shanks M.D.* Started ActiveCefuroxime Axetil 500 MG Oral Tablet TAKE 1 TABLET BY MOUTH TWICE DAILY * Quantity: 10 Refills: 0 Angelo Shanks M.D.* Started 29-Jul-2014 ActiveAtenolol 50 MG Oral Tablet TAKE 1 TABLET BY MOUTH TWICE DAILY * Quantity: 30 Refills: 5 Angelo Shanks M.D.* Started 23-Sep-2013 ActivePhentermine HCl - 37.5 MG Oral Tablet TAKE 1 TABLET BY MOUTH DAILY FOR APPETITE SUPPRESSION * Quantity: 30 Refills: 0 Angelo Shanks M.D.* Started 23-Jul-2013 ActiveOxyCONTIN 20 MG Oral Tablet ER 12 [...] Dilation Of Esoph (Less Than 30 Mm) Urinalysis, Reflex to Microscopic or Culture PRN [id number] Ordered: MRI LUMBAR SPINE Ordered: Immunization Name Dates Details Influenza Administered on:26-Jan-2009 Pneumo (Prevnar) Administered on:06-Mar-2009 Influenza A (H1N1) Monoval Vac Intramuscular Suspension Administered on:14-Mar-2009 Influenza Lot #: [id number] Administered on:18-Feb-2010 Influenza Administered on:11-Feb-2011 Influenza Administered [...] smoker Vital Signs Date Test Result Details 09:49 BP Systolic 128 mm[Hg] Status: BP Diastolic 78 mm[Hg] Status: Heart Rate 72 /min Status: Weight 238 lb Status: Body Mass Index Calculated 37.28 kg/m2 Status: Body Surface Area Calculated 2.18 m2 Status: 09:53 BP Systolic 136 mm[Hg] Status: BP Diastolic 80 mm[Hg] Status: Heart Rate 78 /min Status: Respiration Rate 22 /min Status: Weight 239 lb Status: Height 67 in Status: Body Mass Index Calculated 37.43 kg/m2 Status: Body Surface Area Calculated 2.18 m2 Status: Results Date Description Value Details 09:27 CBC w/ Auto Diff 7150 Comments: Fastin hours WBC 6.6 K/uL (Better) Range: 4.5-11.0 RBC 5.00 mil/uL (Better) Range: 3.60-5.00 HGB 14.4 g/dL (Better) Range: 12.0-16.0 HCT 44.9 % (Better) Range: 36.0-48.0 MCV 89.8 fL (Better) Range: 80.0-99.0 MCH 28.8 pg (Better) Range: 27.3-32.5 MCHC 32.1 % (Better) Range: 32.0-36.0 RDW 14.9 % (Above high threshold) Range: 11.6-14.8 PLATELETS 260 K/uL (Better) Range: 150-400 MPV 8.2 fL (Better) Range: 6.0-11.0 %NEUTRO 46.0 % (Better) Range: 37.0-80.0 %LYMPHS 34.8 % (Better) Range: 13.0-50.0 %MONO 8.5 % (Better) Range: 0.0-12.0 %EOS 6.2 % (Better) Range: 0.0-7.0 %BASO 0.6 % (Better) Range: 0.0-2.5 %DUNG 3.9 % (Better) Range: 0.0-5.0 NEUTRO 3.1 K/uL (Better) Range: 2.0-6.9 LYMPHS 2.3 K/uL (Better) Range: 0.6-3.4 MONOS 0.6 K/uL (Better) Range: 0.0-0.9 EOS 0.4 K/uL (Better) Range: 0.0-0.7 BASO 0.0 K/uL (Better) Range: 0.0-0.2 09:52 Comprehensive Metabolic Panel 1212 Comments: Fastin hours SODIUM 143 mmol/L (Better) Range: 133-144 POTASSIUM 4.4 mmol/L (Better) Range: 3.5-5.1 CHLORIDE 109 mmol/L (Better) Range: 98-110 CARBON DIOXIDE 21.8 mmol/L (Below low threshold) Range: 23.0-33.0 ANION GAP 12 mmol/L (Better) Range: 6-16 BUN 32 mg/dL (Above high threshold) Range: 7-18 CREATININE, SERUM 2.05 mg/dL (Above high threshold) Range: 0.70-1.30 Comments: Please note new reference ranges effective 2014.----- BUN:CREATININE RATIO 16 (Better) EST GFR, 30 ml/min (Below low threshold) Range: >60 EST GFR, NON-AFR FIJIAN 25 ml/min (Below low threshold) Range: >60 Comments: EST GFR is reported in ml/min per 1.73 m2 of body surface area. For -[place]ghan, please multiple result by 1.2.----- GLUCOSE 108 mg/dL (Above high threshold) Range: 70-100 ALK PHOSPHATASE 150 U/L (Above high threshold) Range: 46-116 TOTAL BILIRUBIN 0.80 mg/dL (Better) Range: 0.20-1.00 AST 22 U/L (Better) Range: 8-35 ALT 21 U/L (Better) Range: 14-59 Comments: Please note new reference ranges. Effective 07/24/2014.----- ALBUMIN 3.8 g/dL (Better) Range: 3.4-5.0 TOTAL PROTEIN 7.8 g/dL (Better) Range: 6.4-8.2 A/G RATIO 1.0 units (Better) Range: 1.0-1.8 CALCIUM 9.1 mg/dL (Better) Range: 8.5-10.1 09:52 LIPID PROFILE 1184 Comments: Fastin hours CHOLESTEROL 157 mg/dL (Better) Range: <200 TRIGLYCERIDES 208 mg/dL (Above high threshold) Range: 30-200 HDL Cholesterol 36 mg/dL (Below low threshold) Range: >39 NON HDL CHOLESTEROL 121 (Better) CARDIAC RSK FACTOR 4.4 units (Better) Range: 4.4-5.0 LDL - CALCULATED 79 mg/dL (Better) Range: 0-130 Plan of Care Planned Observations* Name Dates Details Planned Goals not documented Goal Planned Encounters* Appointment; Provider: Angelo Randhawa On 23-Jul-2015 14:30 * Appointment; Provider: Donnie Blanco On 02-Jan-2015 11:15 * Appointment; Provider: Italia Bang On 09:00 * Appointment; Provider: Joel Montalvo On 08:30 * Appointment; Provider: Malik Denton On 14:00 * Appointment; Provider: Angelo Randhawa On 31-Jan-2011 09:30 * Appointment; Provider: Angelo Randhawa On 22-Jan-2008 13:00 * Appointment; Provider: Angelo Randhawa On 11:00 * Appointment; Provider: Angelo Randhawa On 08-Oct-2007 08:00 * Appointment; Provider: Angelo Shanks On 14-Sep-2007 08:45 Instructions * Instructions not documented Encounters Appointment; Angelo Shanks Encounter Diagnosis: Problem not documented On 10:15 Appointment; Donnie Blanco Encounter Diagnosis: Problem [...] Problem not documented On 12-Feb-2014 15:00 Appointment; Aneglo Shanks Encounter Diagnosis: Problem not documented On [...]
--- OUTSIDE RECORDS SUMMARY | 2017-06-16 14:06 | XMS REPORT ---
Author Author DELMI BYRNES [facility] eClinical[employer] Address Unknown Phone Unavailable Care Team Providers Care Ice House Supervisor Name Role Phone DELMI BYRNES CP Unavailable Allergies, Adverse Reactions, Alerts Substance Reaction Event Type N.K.D.A. Info Not Available Non Drug Allergy Problems Problem Type Condition Code Onset Dates Condition Status Assessment Anxiety F41.9 Active Assessment Fibromyalgia M79.7 Active Assessment Arthritis M19.90 Active Assessment Barretts esophagus with dysplasia K22.719 Active Assessment Hyperlipidemia, unspecified hyperlipidemia type E78.5 Active Problem Fibromyalgia M79.7 Active Problem Arthritis M19.90 Active Problem Coronary artery disease involving [place] coronary artery, angina presence unspecified, unspecified whether [place] or transplanted heart I25.10 Active Problem Barretts esophagus with dysplasia K22.719 Active Assessment Coronary artery disease involving [place] coronary artery, angina presence unspecified, unspecified whether [place] or transplanted heart I25.10 Active Problem Anxiety F41.9 Active Problem Hyperlipidemia, unspecified hyperlipidemia type E78.5 Active Medications Medication Code System Code Instructions Start Date End Date Status Dosage Atenolol [facility] [address]-60 50 MG Orally Once a day 1 tablet Duloxetine HCl [facility] [address]-17 60 MG Orally Once a day 1 capsule Clopidogrel Bisulfate [facility] [address]-04 75 MG Orally Once a day 1 tablet Lisinopril [facility] [address]-56 10 MG Orally Once a day 1 tablet Alprazolam [facility] [address]-72 1 MG Orally qd prn anxiety 1 tablet Zetia [facility] [address]-14 10 MG Orally Once a day 1 tablet ProAir HFA [facility] [address]-89 108 (90 Base) MCG/ACT Inhalation every 4 hrs 2 puffs as needed Clobetasol Propionate [facility] [address]-57 0.05 % Externally Twice a day 1 application to affected area Triamcinolone Acetonide [facility] [address]-63 0.1 % Externally Twice a day 1 application to affected area Pantoprazole Sodium [facility] [address]-07 40 MG Orally Once a day 1 tablet Hydrocodone-Acetaminophen [facility] [address]-09 5-325 MG Orally every 6 hrs, prn pain 1 tablet as needed VESIcare [facility] [address]-84 10 MG Orally Once a day 1 tablet OxyContin [facility] [address]-68 20 mg Orally every 12 hrs 1 tablet Tramadol HCl [facility] [address]-52 50 MG Orally every 6 hrs 1 tablet as needed Zyrtec Allergy [facility] [address]-86 10 MG Orally Once a day 1 tablet Atorvastatin Calcium [facility] [address]-13 80 MG Orally Once a day 1 tablet Terbinafine HCl [facility] [address]-08 250 MG Orally Once a day 1 tablet Lyrica [facility] [address]-72 150 MG Orally t i d 1 capsule Loratadine [facility] [address]-68 10 MG Orally Once a day 1 tablet Ranitidine HCl [facility] [address]-90 300 MG Orally Once a day 1 tablet at bedtime Procedures Procedure Coding System Code Date Office Visit, Est Pt., Level 5 CPT-4 62542 November 30, 2015 Vital Signs Date/Time: November 30, 2015 Cardiac Monitoring Heart Rate 78 bpm Weight 230 lbs Height 67 in Blood Pressure Diastolic 62 mmHg Blood Pressure Systolic 108 mmHg Results No Known Results Summary Purpose eClinicalWorks Submission
--- OUTSIDE RECORDS SUMMARY | 2017-06-16 14:07 | XMS REPORT | Summary of Care ---
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, K22.70) Status: Active Right hip pain (719.45, M25.551) Status: Active Right leg pain (729.5, M79.604) Status: Active Anxiety (300.00, F41.9) Status: Active Hypokalemia (276.8, E87.6) Status: Active Allergic rhinitis (477.9, J30.9) Status: Active Renal insufficiency (593.9, N28.9) Status: Active Hearing loss, sensorineural (389.10, H90.5) Status: Active Hypertension (401.9, I10) Status: Active Hyperlipidemia (272.4, E78.5) Status: Active Peripheral neuropathy (356.9, G62.9) Status: Active Reflux esophagitis (530.11, K21.0) Status: Active Dysarthria on examination (784.51, R47.1) Status: Active High risk medication use (V58.69, Z79.899) Status: Active CVA (cerebral vascular accident) (434.91, I63.9) Status: Active CAD (coronary atherosclerotic disease) (414.00, I25.10) Status: Active Chronic obstructive pulmonary disease (496, J44.9) Status: Active Obesity (278.00, E66.9) Status: Active Osteoarthritis (715.90, M19.90) Status: Active Low back pain radiating to right leg (724.2, M54.5) Status: Active Depression (311, F32.9) Status: Active Fibromyalgia (729.1, M79.7) Status: Active Urinary tract infection (599.0, N39.0) Status: Active Generalized weakness (780.79, R53.1) Status: Active Lethargy (780.79, R53.83) Status: Active Medications Name Dates Details DULoxetine HCl - 60 MG Oral Capsule Delayed Release Particles TAKE 2 CAPSULES BY MOUTH EVERY DAY-fill on 03/10/15 Quantity: 60 Angelo Shanks M.D.* Started 13-Jul-2009 [...] 1 TABLET BY MOUTH DAILY * Quantity: 1 Refills: 3 Angelo Shanks M.D.* Started 06-Apr-2009 [id number] Tablet Bottle ProAir HFA 108 (90 Base) MCG/ACT Inhalation Aerosol Solution INHALE 2 PUFFS BY MOUTH EVERY 4 HOURS NEEDED * Quantity: 1 Refills: 2 Angelo Shanks M.D.* Started 04-May-2009 Active8.5 GM [...] mouth twice daily * Quantity: 240 Refills: 11 Angelo Shanks M.D.* Started 20-Sep-2010 ActiveRanitidine HCl - 300 MG Oral Tablet TAKE 1 TABLET BY MOUTH THREE TIMES DAILY * Quantity: 90 Refills: Italia Bang M.D.* Started 18-Jan-2011 ActiveHydrocodone-Acetaminophen 10-325 MG Oral Tablet TAKE ONE TABLET BY MOUTH EVERY 4 TO 6 HOURS NEEDEDMAX 5 PER DAYMAY FILL ON OR AFTER 03/27/15 * Quantity: 150 Refills: 0 Donnie Blanco [...] Refills: 2 Angelo Shanks M.D.* Started 30-Jul-2012 ActivePantoprazole Sodium 40 MG Oral Tablet Delayed Release TAKE 1 TABLET BY MOUTH 30 MINUTES BEFORE BREAKFAST DAILY * Quantity: 30 Refills: Italia Bang M.D.* Started 08-Aug-2013 ActiveVoltaren 1 % Transdermal Gel APPLY TO AREA, 4 GM OF GEL TO AFFECTED AREA TWICE DAILY. DO NOT APPLY MORE THAN 16 GM DAILY TO ANY ONE AFFECTED JOINT. * Quantity: 1 Refills: 3 Donnie Blanco M.D.* Started 23-Jul-2013 [id number] GM Tube Triamcinolone Acetonide 55 MCG/ACT Nasal Aerosol USE ONE SPRAY IN EACH NOSTRIL EVERY DAY * Quantity: 16.5 Refills: 0 Angelo Shanks M.D.* Started 19-May-2014 ActiveAtorvastatin Calcium 80 MG Oral Tablet TAKE 1 TABLET BY MOUTH EVERY NIGHT AT BEDTIME * Quantity: 30 Refills: 6 Angelo Randhawa M.D.* Started 23-Jan-2014 ActivePhentermine HCl - 37.5 MG Oral Tablet TAKE 1 TABLET BY MOUTH DAILY FOR APPETITE SUPPRESSION * Quantity: 30 Refills: 0 Angelo Shanks M.D.* Started 23-Jul-2013 ActiveOndansetron 4 MG Oral Tablet Dispersible DISSOLVE 1 TABLET BY MOUTH EVERY 6 HOURS NEEDED FOR NAUSEA. MUST LAST 10 DAYS. * Quantity: 20 Refills: 0 Angelo Shanks M.D.* Started 15-Apr-2014 ActiveLyrica 150 MG Oral Capsule TAKE 1 CAPSULE BY MOUTH THREE TIMES DAILY * Quantity: 90 Refills: 5 Angelo Shanks M.D.* Started 17-Sep-2013 ActiveTerbinafine HCl - 250 MG Oral Tablet TAKE 1 TABLET DAILY. * Quantity: 30 Refills: 5 Angelo Shanks M.D.* Started 11-Jul-2014 ActiveTriamcinolone Acetonide 0.1 % External Cream APPLY A SMALL AMOUNT TO THE AFFECTED AREAS 3 TIMES DAILY * Quantity: 45 Refills: 5 Angelo Shanks M.D.* Started ActiveMeloxicam 15 MG Oral Tablet TAKE 1 TABLET BY MOUTH EVERY DAY WITH FOOD * Quantity: 30 Refills: 3 Donnie Blanco M.D.* Started 19-Aug-2013 ActiveCyclobenzaprine HCl - 10 MG Oral Tablet TAKE 1 TABLET BY MOUTH THREE TIMES DAILY NEEDED FOR MUSCLE SPASMS * Quantity: 90 Refills: 0 Angelo Shanks M.D.* Started ActiveAtenolol 50 MG Oral Tablet TAKE 1 TABLET BY MOUTH TWICE DAILY * Quantity: 30 Refills: 0 Angelo Shanks M.D.* Started 23-Sep-2013 ActiveTraMADol HCl - 50 MG Oral Tablet TAKE 1 TABLET BY MOUTH 4-6 HOURS NEEDED FOR PAIN * Quantity: 30 Refills: 0 Angelo Shanks M.D.* Started ActiveTopiramate 50 MG Oral Tablet TAKE 1 TABLET BY MOUTH DAILY AT BEDTIME * Quantity: 30 Refills: 0 Angelo Shanks M.D.* Started 02-May-2014 ActiveClotrimazole 10 MG Mouth/Throat Lozenge DISSOLVE 1 AUBREY IN MOUTH EVERY 4 HOURS DIRECTED * Quantity: 25 Refills: 0 Angelo Shanks M.D.* Started 13-Aug-2014 ActiveEvzio 0.4 MG/0.4ML Injection Solution Auto-injector INJECT 0.4MG SC/IM Q 2-3MIN NEEDED PER OVERDOSE * Quantity: 1 Refills: 0 Donnie Blanco M.D.* Started 27-Mar-2015 Active0.4 ML Package (2 Packages) OxyCONTIN 20 MG Oral Tablet ER 12 Hour Abuse-Deterrent TAKE 1 TABLET Q 12HRSMUST LAST 30 DAYS*MAY FILL ON OR AFTER 03/27/15* * Quantity: 60 Refills: 0 Donnie Blanco [...] Dyspepsia (536.8, K30) Status: Resolved History of earache (V12.49, Z86.69) [...] Status: Resolved History of urinary incontinence (V13.09, Z87.898) Status: Resolved History of viral warts (V12.09, [...] Reflex to Microscopic or Culture PRN [id number] Ordered:26-Mar-2015 MRI LUMBAR SPINE Ordered:27-Mar-2015 CT HEAD WITHOUT AND WITH IV CONTRAST Ordered:26-Mar-2015 Immunization Name Dates Details Influenza Administered on:26-Jan-2009 Pneumo (Prevnar) Administered on:06-Mar-2009 Influenza A (H1N1) Monoval Vac Intramuscular Suspension Administered on:14-Mar-2009 Influenza Lot #: [id number] Administered on:18-Feb-2010 Influenza Administered on:11-Feb-2011 Influenza Administered [...] smoker Vital Signs Date Test Result Details 03-Apr-2015 13:44 BP Systolic 98 mm[Hg] Status: BP Diastolic 84 mm[Hg] Status: 27-Mar-2015 14:51 BP Systolic 110 mm[Hg] Status: BP Diastolic 68 mm[Hg] Status: Heart Rate 68 /min Status: Respiration Rate 22 /min Status: Height 67 in Status: Weight 243.25 lb Status: O2 SAT 97 % Status: Body Mass Index Calculated 38.1 kg/m2 Status: Body Surface Area Calculated 2.2 m2 Status: 26-Mar-2015 10:37 BP Systolic 110 mm[Hg] Status: BP Diastolic 68 mm[Hg] Status: Heart Rate 56 /min Status: Weight 242 lb Status: Body Mass Index Calculated 37.9 kg/m2 Status: Body Surface Area Calculated 2.19 m2 Status: Results Date Description Value Details 26-Mar-2015 11:37 CBC w/ Auto Diff 7150 WBC 6.2 K/uL (Better) Range: 4.5-11.0 RBC 4.34 mil/uL (Better) Range: 3.60-5.00 HGB 12.6 g/dL (Better) Range: 12.0-16.0 HCT 38.1 % (Better) Range: 36.0-48.0 MCV 87.8 fL (Better) Range: 80.0-99.0 MCH 28.9 pg (Better) Range: 27.3-32.5 MCHC 32.9 % (Better) Range: 32.0-36.0 RDW 15.2 % (Above high threshold) Range: 11.6-14.8 PLATELETS 224 K/uL (Better) Range: 150-400 MPV 8.1 fL (Better) Range: 6.0-11.0 %NEUTRO 62.4 % (Better) Range: 37.0-80.0 %LYMPHS 23.4 % (Better) Range: 13.0-50.0 %MONO 7.2 % (Better) Range: 0.0-12.0 %EOS 3.8 % (Better) Range: 0.0-7.0 %BASO 0.3 % (Better) Range: 0.0-2.5 %DUNG 2.9 % (Better) Range: 0.0-5.0 NEUTRO 3.9 K/uL (Better) Range: 2.0-6.9 LYMPHS 1.5 K/uL (Better) Range: 0.6-3.4 MONOS 0.5 K/uL (Better) Range: 0.0-0.9 EOS 0.2 K/uL (Better) Range: 0.0-0.7 BASO 0.0 K/uL (Better) Range: 0.0-0.2 11:59 Comprehensive Metabolic Panel 1212 SODIUM 141 mmol/L (Better) Range: 133-144 POTASSIUM 3.2 mmol/L (Below low threshold) Range: 3.5-5.1 CHLORIDE 104 mmol/L (Better) Range: 98-110 CARBON DIOXIDE 25.2 mmol/L (Better) Range: 23.0-33.0 ANION GAP 12 mmol/L (Better) Range: 6-16 BUN 22 mg/dL (Above high threshold) Range: 7-18 CREATININE, SERUM 1.25 mg/dL (Above high threshold) Range: 0.55-1.02 Comments: Please note new reference ranges effective 2014.----- BUN:CREATININE RATIO 18 (Better) EST GFR, 53 ml/min (Below low threshold) Range: >60 EST GFR, NON-AFR SWISS 44 ml/min (Below low threshold) Range: >60 Comments: EST GFR is reported in ml/min per 1.73 m2 of body surface area. For -Scottish, please multiple result by 1.2.----- GLUCOSE 96 mg/dL (Better) Range: 70-100 ALK PHOSPHATASE 143 U/L (Above high threshold) Range: 46-116 TOTAL BILIRUBIN 0.40 mg/dL (Better) Range: 0.20-1.00 AST 16 U/L (Better) Range: 8-35 ALT 26 U/L (Better) Range: 14-59 Comments: Please note new reference ranges. Effective 07/24/2014.----- ALBUMIN 3.4 g/dL (Better) Range: 3.4-5.0 TOTAL PROTEIN 6.8 g/dL (Better) Range: 6.4-8.2 A/G RATIO 1.0 units (Better) Range: 1.0-1.8 CALCIUM 8.3 mg/dL (Below low threshold) Range: 8.5-10.1 Plan of Care Planned Observations* Name Dates Details Planned Goals not documented Goal Planned Encounters* Appointment; Provider: Angelo Randhawa On 23-Jul-2015 14:30 * Appointment; Provider: Donnie Blanco On 23-Apr-2015 14:30 * Appointment; Provider: Angelo Randhawa On 31-Jan-2011 09:30 * Appointment; Provider: Angelo Randhawa On 22-Jan-2008 13:00 * Appointment; Provider: Angelo Randhawa On 11:00 * Appointment; Provider: Angelo Randhawa On 08-Oct-2007 08:00 * Appointment; Provider: Angelo Shanks On 14-Sep-2007 08:45 Instructions * Instructions not documented Encounters Appointment; Angelo Shanks Encounter Diagnosis: Problem not documented On 03-Apr-2015 13:30 Appointment; Donnie Blanco Encounter Diagnosis: Problem not documented On 27-Mar-2015 15:15 Appointment; Angelo Shanks Encounter Diagnosis: Problem not documented On 26-Mar-2015 10:15 Appointment; Angelo Shanks Encounter Diagnosis: Problem not documented On 19-Mar-2015 15:00 Appointment; Donnie Blanco Encounter Diagnosis: Problem not documented On 19-Mar-2015 13:45 Appointment; Donnie Blanco Encounter Diagnosis: Problem not documented On 05-Feb-2015 14:45 Appointment; Angelo Shanks Encounter Diagnosis: Problem not documented On 02-Feb-2015 15:00 Appointment; Donnie Blanco Encounter Diagnosis: Problem not documented On 02-Jan-2015 11:15 Appointment; Angelo Shanks Encounter Diagnosis: Problem not documented On 10:15 Appointment; Malik Denton Encounter Diagnosis: Problem not documented On 17:15 Appointment; Malik Denton Encounter Diagnosis: Problem not documented On 14:00 Appointment; Angelo Shanks Encounter Diagnosis: Problem [...]
--- OUTSIDE RECORDS SUMMARY | 2017-06-16 14:08 | XMS REPORT | Summary of Care ---
Author Author Dimitris Alejandra, Tarik Stephens Organization Unknown Address [address] [place], [place] [id number] Phone Unavailable Care Team Providers Care Hand Icer Name Role Phone Dimitris Alejandra, Tarik Stephens Unavailable Unavailable Merritt Alejandra, Marla Echavarria Unavailable Unavailable Bella Alejandra, Donnie Unavailable Unavailable Gayathri Harrell, Bhavik Unavailable Unavailable Sydnee Alejandra, Yaniv Stephens Unavailable [...] Refills: 3 Angelo Shanks M.D.* Started 06-Apr-2009 [id number] Tablet Bottle ProAir HFA 108 (90 Base) MCG/ACT Inhalation Aerosol Solution INHALE 2 PUFFS BY MOUTH EVERY 4 HOURS NEEDED * Quantity: 8.5 Refills: 2 Angelo Shanks M.D.* Started 04-May-2009 ActiveLisinopril 10 MG Oral Tablet take 1 tablet by mouth every day * Quantity: 30 Refills: 11 Angelo Randhawa M.D.* Started 11-Feb-2011 ActiveFurosemide 80 MG Oral Tablet take one [...] THREE TIMES DAILY * Quantity: 90 Refills: 11 Italia Bang M.D.* Started 18-Jan-2011 ActiveLoratadine 10 MG Oral Tablet take one tablet by mouth every day * Quantity: 30 Refills: 5 Angelo Shanks M.D.* Started 13-Jul-2009 ActiveHydrocodone-Acetaminophen 10-325 MG Oral Tablet TAKE ONE TABLET BY MOUTH EVERY 4 TO 6 HOURS NEEDEDMAX 5 PER DAYMAY FILL ON OR AFTER 03/27/15 * Quantity: 150 Refills: 0 Donnie Blanco M.D.* Started 28-Jan-2011 ActiveALPRAZolam 1 MG Oral Tablet TAKE 1 [...] Refills: 2 Angelo Shanks M.D.* Started 30-Jul-2012 ActiveVoltaren 1 % Transdermal Gel APPLY TO AREA, 4 GM OF GEL TO AFFECTED AREA TWICE DAILY. DO NOT APPLY MORE THAN 16 GM DAILY TO ANY ONE AFFECTED JOINT. * Quantity: 1 Refills: 3 Donnie Blanco M.D.* Started 23-Jul-2013 [id number] GM Tube Triamcinolone Acetonide 55 MCG/ACT Nasal Aerosol USE ONE SPRAY IN EACH NOSTRIL EVERY DAY * Quantity: 16.5 Refills: 0 Angelo Shanks M.D.* Started 19-May-2014 ActiveAtorvastatin Calcium 80 MG Oral Tablet TAKE 1 TABLET BY MOUTH EVERY NIGHT AT BEDTIME * Quantity: 30 Refills: 6 Angelo Randhawa M.D.* Started 23-Jan-2014 ActiveOndansetron 4 MG Oral Tablet Dispersible DISSOLVE [...] 45 Refills: 5 Angelo Shanks M.D.* Started ActiveOxyCONTIN 20 MG Oral Tablet ER 12 Hour Abuse-Deterrent TAKE 1 TABLET Q 12HRSMUST LAST 30 DAYS*MAY FILL ON OR AFTER 03/27/15* * Quantity: 60 Refills: 0 Donnie Blanco M.D.* Started 13-Jun-2013 ActiveMeloxicam 15 MG Oral Tablet TAKE 1 TABLET BY MOUTH EVERY DAY WITH FOOD * Quantity: 30 Refills: 3 Donnie Blanco M.D.* Started 19-Aug-2013 ActiveTopiramate 50 MG Oral Tablet TAKE 1 TABLET BY MOUTH DAILY AT BEDTIME * Quantity: 30 Refills: 0 Angelo Shanks M.D.* Started 02-May-2014 ActivePhentermine HCl - 37.5 MG Oral Tablet TAKE 1 TABLET BY MOUTH DAILY FOR APPETITE SUPPRESSION * Quantity: 30 Refills: 0 Angelo Shanks M.D.* Started 23-Jul-2013 ActiveCyclobenzaprine HCl - 10 MG Oral Tablet TAKE 1 TABLET BY MOUTH THREE TIMES DAILY NEEDED FOR MUSCLE SPASMS * Quantity: 90 Refills: 0 Angelo Shanks M.D.* Started ActiveAtenolol 50 MG Oral Tablet TAKE 1 TABLET BY MOUTH TWICE DAILY * Quantity: 60 Refills: 0 Angelo Shanks M.D.* Started 23-Sep-2013 ActiveClotrimazole 10 MG Mouth/Throat Lozenge DISSOLVE 1 AUBREY IN MOUTH EVERY 4 HOURS DIRECTED * Quantity: 25 Refills: 0 Angelo Shanks M.D.* Started 13-Aug-2014 ActiveTraMADol HCl - 50 MG Oral Tablet TAKE 1 TABLET BY MOUTH EVERY 6 HOURS NEEDED FOR PAIN * Quantity: 30 Refills: 0 Angelo Shanks M.D.* Started ActiveEvzio 0.4 MG/0.4ML Injection Solution Auto-injector INJECT 0.4 MG EVERY 2 TO 3 MINUTES NEEDED PER OVERDOSE * Quantity: 0.8 Refills: 0 Donnie Blanco M.D.* Started 27-Mar-2015 ActivePantoprazole Sodium 40 MG Oral Tablet Delayed Release TAKE 1 TABLET BY MOUTH 30 MINUTES BEFORE BREAKFAST DAILY * Quantity: 30 Refills: 0 Bhavik Trinh* Started 08-Aug-2013 Active Allergies and Adverse Reactions Name Dates [...] Intramuscular Suspension Administered on:14-Mar-2009 Influenza Lot #: [id number] Administered on:18-Feb-2010 Influenza Administered on:11-Feb-2011 Influenza Administered [...] On 23-Jul-2015 14:30 * Appointment; Provider: Angelo Randhawa On 31-Jan-2011 09:30 * Appointment; Provider: Angelo Randhwaa On 22-Jan-2008 13:00 * Appointment; Provider: Angelo Randhawa On 11:00 * Appointment; Provider: Angelo Randhawa On 08-Oct-2007 08:00 * Appointment; Provider: Angelo Shanks On 14-Sep-2007 08:45 Instructions * Instructions not documented Encounters Appointment; Angelo Shanks Diagnosis: Problem not documented On 03-Apr-2015 13:30 Appointment; Donnie Blanco Diagnosis: Problem not documented On 27-Mar-2015 15:15 Appointment; Angelo Shanks Diagnosis: Problem not documented On 26-Mar-2015 10:15 Appointment; Angelo Shanks Encounter Diagnosis: Problem not documented On 19-Mar-2015 15:00 Appointment; Donnie Blanco Encounter Diagnosis: Problem not documented On 19-Mar-2015 13:45 Appointment; Donnie Blanco Encounter Diagnosis: Problem not documented On 05-Feb-2015 14:45 Appointment; Angelo Shanks Diagnosis: Problem not documented On 02-Feb-2015 15:00 [...] not documented On 09:45 Appointment; Angelo Shanks Diagnosis: Problem not documented On 18-Sep-2014 10:15 [...] not documented On 19-Aug-2013 15:30 Appointment; Donnie Blanoc Encounter Diagnosis: Problem not documented On 19-Aug-2013 [...]
--- OUTSIDE RECORDS SUMMARY | 2017-06-16 14:08 | XMS REPORT ---
Author Author DELMI BYRNES [facility] Address [address] [place] [address] Care Team Providers Care Coremaker Experimental Name Role Phone DELMI BYRNES Unavailable PROBLEMS Type Condition ICD9-CM Code [id number] Code Onset Dates Condition Status SNOMED Code Problem Barretts esophagus with dysplasia K22.719 Active 4920037489652855 Problem Depressive disorder, not elsewhere classified F32.9 Active 19187031 Problem Edema, unspecified type R60.9 Active 022326249 Problem Coronary artery disease involving [place] coronary artery, angina presence unspecified, unspecified whether [place] or transplanted heart I25.10 Active 9339489067144 Problem Anxiety F41.9 Active 23787442 Problem Hyperlipidemia, unspecified hyperlipidemia type E78.5 Active 14243087 Problem Fibromyalgia M79.7 Active 026344864 Problem Arthritis M19.90 Active 3067643 ALLERGIES Unknown Allergies SOCIAL HISTORY No smoking Hx information available PLAN OF CARE VITAL SIGNS MEDICATIONS Medication Instructions Dosage Frequency Start Date End Date Duration Status Folic Acid 1 MG Orally twice a day 1 tablet 12h Active Loratadine 10 MG Orally Once a day 1 tablet 24h Active Atenolol 50 mg Orally twice a day 1 tablet 12h Active Risperdal 1 MG Orally Once a day 1 tablet 24h Active Ranitidine HCl 150 MG Orally twice a day 1 tablet at bedtime 12h Active Triamcinolone Acetonide 0.1 % Externally Twice a day 1 application to affected area 12h Active Lyrica 150 MG Orally t i d 1 capsule Active Cholecalciferol 1000 UNIT Orally Once a day 2 capsules 24h Active Duloxetine HCl 30 MG Orally twice a day 1 capsule 12h Active Pantoprazole Sodium 40 MG Orally Once a day 1 tablet 24h Active Exelon 4.6 MG/24HR Transdermal Once a day 1 patch to skin 24h Active Multivitamin Adult - Active VESIcare 10 MG Orally Once a day 1 tablet 24h Active Tramadol HCl 50 mg Orally every 6 hours as needed 1 tablet as needed (PT IN [facility]) Feb, Active RESULTS No Results PROCEDURES No Known procedures IMMUNIZATIONS No Known Immunizations
--- OUTSIDE RECORDS SUMMARY | 2017-06-16 14:08 | XMS REPORT ---
Author Author DELMI BYRNES [facility] Address [address] [place] [address] Care Team Providers Care Naturopathic Physician Name Role Phone DELMI BYRNES Unavailable PROBLEMS Type Condition ICD9-CM Code ONP28-VW Code Onset Dates Condition Status SNOMED Code Problem Fibromyalgia M79.7 Active 301018330 Problem Acute gout involving toe of right foot, unspecified cause M10.9 Active 623685471 Problem Edema, unspecified type R60.9 Active 867967667 Problem Lumbar radiculopathy M54.16 Active 180307242 Problem Chronic depression F32.9 Active 467711778 Problem Chronic kidney disease, stage 2 (mild) N18.2 Active 996107137 Problem Constipation, unspecified constipation type K59.00 Active 78297632 Problem Prediabetes R73.03 Active 459247004 Problem Essential hypertension I10 Active 12949146 Problem Anxiety F41.9 Active 62815741 Problem Coronary artery disease involving [place] coronary artery, angina presence unspecified, unspecified whether [place] or transplanted heart I25.10 Active 9068926114104 Problem Depressive disorder, not elsewhere classified F32.9 Active 54006867 Problem Hyperlipidemia, unspecified hyperlipidemia type E78.5 Active 34210779 Problem Arthritis M19.90 Active 9076247 Problem Barretts esophagus with dysplasia K22.719 Active 4827302886204080 ALLERGIES Unknown Allergies SOCIAL HISTORY No smoking Hx information available PLAN OF CARE VITAL SIGNS MEDICATIONS Unknown Medications RESULTS No Results PROCEDURES No Known procedures IMMUNIZATIONS No Known Immunizations
--- OUTSIDE RECORDS SUMMARY | 2017-06-16 14:08 | XMS REPORT ---
Author Author DELMI BYRNES [facility] Address [address] [place] [address] Care Team Providers Care Capacity Manager Name Role Phone DELMI BYRNES Unavailable PROBLEMS Type Condition ICD9-CM Code [id number] Code Onset Dates Condition Status SNOMED Code Problem Barretts esophagus with dysplasia K22.719 Active 4653153043547201 Problem Depressive disorder, not elsewhere classified F32.9 Active 63688091 Problem Edema, unspecified type R60.9 Active 310361965 Problem Coronary artery disease involving [place] coronary artery, angina presence unspecified, unspecified whether [place] or transplanted heart I25.10 Active 0043134604706 Problem Anxiety F41.9 Active 81643118 Problem Hyperlipidemia, unspecified hyperlipidemia type E78.5 Active 81525781 Problem Fibromyalgia M79.7 Active 124915090 Problem Arthritis M19.90 Active 1654967 ALLERGIES Unknown Allergies SOCIAL HISTORY No smoking Hx information available PLAN OF CARE VITAL SIGNS MEDICATIONS Medication Instructions Dosage Frequency Start Date End Date Duration Status Imodium A-D 2 MG Orally 4 time(s) a day as needed 1 tablet Jan, Feb, 30 day(s) Active RESULTS No Results PROCEDURES No Known procedures IMMUNIZATIONS No Known Immunizations
--- OUTSIDE RECORDS SUMMARY | 2017-06-16 14:08 | XMS REPORT ---
Author Author GENERATED, SYSTEM Organization Unknown Address Unknown Phone Unavailable Care Team Providers Care Stitch Bonding Machine Drawer In Name Role Phone MD BOYD, HANDY PP Reason For Visit Chief Complaint WEAKNESS Social History Functional Status Vital Signs Results Problems Encounter Diagnosis No relevant problems exist. Encounters Encounter Diagnosis No relevant problems exist. Plan of Care Procedures * Completed , on 01/31/2011 12:00 AM * Completed , on 01/31/2011 12:00 AM * Completed , on 01/31/2011 12:00 AM Immunizations No immunizations administered or ordered. Hospital Course Hospital Discharge Instructions Allergies, Adverse Reactions, Alerts * Latex Allergy has not been assessed. * IV Contrast Allergy has not been assessed. * No Known Drug Allergies. * No Known Food Allergies. * No Known Allergies. Medication Medication reconciliation has not been performed.
--- OUTSIDE RECORDS SUMMARY | 2017-06-16 14:08 | XMS REPORT ---
Author Author DELMI BYRNES [facility] Address [address] [place] [address] Care Team Providers Care Repairer Auto Clocks Name Role Phone DELMI BYRNES Unavailable PROBLEMS Type Condition ICD9-CM Code [id number] Code Onset Dates Condition Status SNOMED Code Problem Barretts esophagus with dysplasia K22.719 Active 1786654864910970 Problem Depressive disorder, not elsewhere classified F32.9 Active 94886319 Problem Edema, unspecified type R60.9 Active 086402768 Problem Coronary artery disease involving [place] coronary artery, angina presence unspecified, unspecified whether [place] or transplanted heart I25.10 Active 9987360200820 Problem Anxiety F41.9 Active 80413593 Problem Hyperlipidemia, unspecified hyperlipidemia type E78.5 Active 50409882 Problem Fibromyalgia M79.7 Active 686746662 Problem Arthritis M19.90 Active 7763571 ALLERGIES Unknown Allergies SOCIAL HISTORY No smoking Hx information available PLAN OF CARE VITAL SIGNS MEDICATIONS Unknown Medications RESULTS No Results PROCEDURES No Known procedures IMMUNIZATIONS No Known Immunizations
--- OUTSIDE RECORDS SUMMARY | 2017-06-16 14:08 | XMS REPORT ---
Author Author DELMI BYRNES Organization [facility] Address [address] [place] [address] Care Team Providers Care Tool Crib Attendant Name Role Phone DELMI BYRNES Unavailable PROBLEMS Type Condition ICD9-CM Code ZTC08-AJ Code Onset Dates Condition Status SNOMED Code Problem Fibromyalgia M79.7 Active 320789485 Problem Anxiety F41.9 Active 12826818 Problem Arthritis M19.90 Active 5592932 Problem Barretts esophagus with dysplasia K22.719 Active 2509610644401766 Problem Coronary artery disease involving [place] coronary artery, angina presence unspecified, unspecified whether [place] or transplanted heart I25.10 Active 7699368824653 Problem Hyperlipidemia, unspecified hyperlipidemia type E78.5 Active 06643945 Problem Chronic bronchitis, unspecified chronic bronchitis type J42 Active 35479150 Problem Lumbar radiculopathy M54.16 Active 108675237 Problem Essential hypertension I10 Active 94564008 Problem Chronic kidney disease, stage 2 (mild) N18.2 Active 517019128 Problem Chronic depression F32.9 Active 661597763 Problem Prediabetes R73.03 Active 926444540 ALLERGIES No Information SOCIAL HISTORY Never Assessed PLAN OF CARE VITAL SIGNS MEDICATIONS Medication Instructions Dosage Frequency Start Date End Date Duration Status Oxycodone HCl 5 mg Orally every 6 hrs, prn pain 1 tablet September, 28 days Active RESULTS No Results PROCEDURES [...]
--- OUTSIDE RECORDS SUMMARY | 2017-06-16 14:09 | XMS REPORT | Summary of Care ---
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, K22.70) Status: Active Dysuria (788.1, R30.0) Status: Active Rash (782.1, R21) Status: Active Fibromyalgia (729.1, M79.7) Status: Active Edema (782.3, R60.9) Status: Active Hypokalemia (276.8, E87.6) Status: Active Insomnia (780.52, G47.00) Status: Active Anxiety (300.00, F41.9) Status: Active Allergic rhinitis (477.9, J30.9) Status: Active Hypertension (401.9, I10) Status: Active Hyperlipidemia (272.4, E78.5) Status: Active Depression (311, F32.9) Status: Active CAD (coronary atherosclerotic disease) (414.00, I25.10) Status: Active Chronic obstructive pulmonary disease (496, J44.9) Status: Active Medications Name Dates Details DULoxetine HCl - 60 MG Oral Capsule Delayed Release Particles TAKE 2 CAPSULES BY MOUTH EVERY DAY Quantity: 60 Angelo Shanks M.D.* Started 13-Jul-2009 ActiveAspirin 81 MG Oral Tablet TAKE 1 TABLET DAILY. * Refills: 0 Angelo Randhawa M.D.* Started 04-Jan-2008 ActivePotassium Chloride Misti ER 10 MEQ Oral Tablet Extended Release take 4 tablets by mouth twice daily * Quantity: 240 Refills: 0 Angelo Shanks M.D.* Started 20-Sep-2010 ActiveLisinopril 10 MG Oral Tablet take 1 tablet by mouth every day * Quantity: 30 Refills: 11 Angelo Randhawa M.D.* Started 11-Feb-2011 ActivePhentermine HCl - 37.5 MG Oral Tablet TAKE 1 TABLET BY MOUTH DAILY FOR APPETITE SUPPRESSION * Quantity: 30 Refills: 0 Angelo Shanks M.D.* Started 23-Jul-2013 ActivePantoprazole Sodium 40 MG Oral Tablet Delayed Release TAKE 1 TABLET BY MOUTH 30 MINUTES BEFORE BREAKFAST DAILY * Quantity: 30 Refills: 11 Italia Bang M.D.* Started 08-Aug-2013 ActiveOndansetron 4 MG Oral Tablet Dispersible DISSOLVE 1 TABLET BY MOUTH EVERY 6 HOURS NEEDED FOR NAUSEA. MUST LAST 10 DAYS. * Quantity: 20 Refills: 0 Angelo Shanks M.D.* Started 15-Apr-2014 ActiveTriamcinolone Acetonide 55 MCG/ACT Nasal Aerosol USE ONE SPRAY IN EACH NOSTRIL EVERY DAY * Quantity: 16.5 Refills: 0 Angelo Shanks M.D.* Started 19-May-2014 ActiveClotrimazole 10 MG Mouth/Throat Aubrey CHEW 1 AUBREY Every 4 hours * Quantity: 25 Refills: 0 Angelo Shanks M.D.* Started 17-Jul-2014 ActiveClotrimazole 10 MG Mouth/Throat Lozenge CHEW 1 AUBREY Every 4 hours * Quantity: 25 Refills: 0 Angelo Shanks M.D.* Started 13-Aug-2014 ActiveTerbinafine HCl - 250 MG Oral Tablet TAKE 1 TABLET DAILY. * Quantity: 30 Refills: 5 Angelo Shanks M.D.* Started 11-Jul-2014 ActiveNicotine 21-14-7 MG/24HR Transdermal Kit 21 mg avwdvu2bp,14mgx2 wk,1asu0ay * Quantity: 1 Refills: 0 Angelo Shanks M.D.* Started 11-Jul-2014 ActiveLyrica 150 MG Oral Capsule TAKE 1 CAPSULE BY MOUTH THREE TIMES DAILY * Quantity: 90 Refills: 0 Angelo Shanks M.D.* Started 17-Sep-2013 ActiveMeloxicam 15 MG Oral Tablet TAKE 1 TABLET BY MOUTH EVERY DAY WITH FOOD * Quantity: 30 Refills: 3 Donnie Blanco M.D.* Started 19-Aug-2013 ActiveGabapentin 300 MG Oral Capsule TAKE ONE CAPSULE BY MOUTH TWICE DAILY * Quantity: 60 Refills: 0 Angelo Shanks M.D.* Started 01-Jun-2012 ActiveALPRAZolam 1 MG Oral Tablet TAKE 1 TABLET BY MOUTH FOUR TIMES DAILY NEEDED FOR ANXIETY * Quantity: 120 Refills: 0 Angelo Shanks M.D.* Started 30-Sep-2011 ActiveHydrocodone-Acetaminophen 10-325 MG Oral Tablet TAKE ONE TABLET BY MOUTH EVERY 4 TO 6 HOURS NEEDEDMAX 5 PER DAYMAY FILL ON OR AFTER 10/20/14* * Quantity: 150 Refills: 0 Donnie Blanco M.D.* Started 28-Jan-2011 ActiveRanitidine HCl - 300 MG Oral Tablet TAKE 1 TABLET BY MOUTH THREE TIMES DAILY * Quantity: 90 Refills: 3 Italia Bang M.D.* Started 18-Jan-2011 ActiveZetia 10 MG Oral Tablet take one tablet by mouth every day * Quantity: 30 Refills: 11 Angelo Shanks M.D.* Started 30-Mar-2010 ActiveFurosemide 80 MG Oral Tablet take one tablet by mouth every day * Quantity: 30 Refills: 5 Angelo Shanks M.D.* Started 16-Feb-2010 ActiveProAir HFA 108 (90 Base) MCG/ACT Inhalation Aerosol Solution TAKE TWO PUFFS BY MOUTH EVERY 4 HOURS NEEDED * Quantity: 1 Refills: 5 Angelo Shanks M.D.* Started 04-May-2009 Active8.5 GM Inhaler Cetirizine HCl - 10 MG Oral Tablet TAKE 1 TABLET BY MOUTH DAILY * Quantity: 30 Refills: 5 Angelo Shanks M.D.* Started 06-Apr-2009 ActiveClopidogrel Bisulfate 75 MG Oral Tablet take 1 tablet by mouth every day * Quantity: 30 Refills: 6 Angelo Randhawa M.D.* Started ActiveSingulair 10 MG Oral Tablet take one tablet by mouth every day * Quantity: 30 Refills: 2 Angelo Shanks M.D.* Started 06-Apr-2009 ActiveZolpidem Tartrate 10 MG Oral Tablet TAKE 1 TABLET BY MOUTH EVERY DAY AT BEDTIME NEEDED * Quantity: 30 Refills: 2 Angelo Shanks M.D.* Started 30-Jul-2012 ActiveLoratadine 10 MG Oral Tablet take one tablet by mouth every day * Quantity: 30 Refills: 5 Angelo Shanks M.D.* Started 13-Jul-2009 ActiveVoltaren 1 % Transdermal Gel APPLY TO AREA, 4 GM OF GEL TO AFFECTED AREA TWICE DAILY. DO NOT APPLY MORE THAN 16 GM DAILY TO ANY ONE AFFECTED JOINT. * Quantity: 1 Refills: 3 Donnie Blanco M.D.* Started 23-Jul-2013 [id number] GM Tube Atorvastatin Calcium 80 MG Oral Tablet TAKE 1 TABLET BY MOUTH EVERY NIGHT AT BEDTIME * Quantity: 30 Refills: 6 Angelo Randhawa M.D.* Started 23-Jan-2014 ActiveOxyCONTIN 20 MG Oral Tablet ER 12 Hour Abuse-Deterrent TAKE 1 TABLET Q 12HRSMUST LAST 30 DAYS*MAY FILL ON OR AFTER 10/20/14* * Quantity: 60 Refills: 0 Donnie Blanco M.D.* Started 13-Jun-2013 ActiveTriamcinolone Acetonide 0.1 % External Cream APPLY [...] Refills: 5 Angelo Shanks M.D.* Started 23-Sep-2013 Active Allergies and Adverse Reactions Name Dates [...] Resolved Procedures Procedure Dates Details History of Upr GI Endosc W/ Balloon Dilation Of Esoph (Less Than 30 Mm) Completed:18-Jan-2011 History of Upr GI Endosc W/ Balloon Dilation Of Esoph (Less Than 30 Mm) History of Upr GI Endosc W/ Balloon Dilation Of Esoph (Less Than 30 Mm) History of Upr GI Endosc W/ Balloon Dilation Of Esoph (Less Than 30 Mm) History of Gastroscopy With Biopsy Completed:10-Apr-2013 History of Upr GI Endosc W/ Balloon Dilation Of Esoph (Less Than 30 Mm) Completed:25-Jun-2012 History of Heart Surgery History of Tubal Ligation History of Gallbladder Surgery History of Hip Replacement History of Upr GI Endosc W/ Balloon Dilation Of Esoph (Less Than 30 Mm) Completed:01-Oct-2010 History of Gastroscopy With Biopsy Procedures not documented Immunization Name Dates Details Influenza Administered on:26-Jan-2009 Pneumo (Prevnar) Administered on:06-Mar-2009 Influenza A (H1N1) Monoval Vac Intramuscular Suspension Administered on:14-Mar-2009 Influenza Lot #: [id number] Administered on:18-Feb-2010 Influenza Administered on:11-Feb-2011 Influenza Administered on:01-Jun-2012 Fluzone Quadrivalent 0.5 ML Intramuscular Suspension Administered on:29-Mar-2013 Fluzone Quadrivalent 0.5 ML Intramuscular Suspension Administered on:26-Feb-2014 Family History Unknown Family Member* Name Dates Details Family history of Hypertension (V17.49) Comments: Family History Status: Active Family history of Diabetes Mellitus (V18.0) Comments: Family History Status: Active Mother* Name [...] Blanco On 15:15 * Appointment; Provider: Angelo Randhawa On 31-Jan-2011 [...] not documented On 11-Sep-2013 15:30 Appointment; Angelo Shansk Encounter Diagnosis: Problem not documented On 09-Sep-2013 [...]
--- OUTSIDE RECORDS SUMMARY | 2017-06-16 14:09 | XMS REPORT | Summary of Care ---
Author Author Dimitris Alejandra, Tarik Stephens Organization Unknown Address [address] [place], [place] [id number] Phone Unavailable Care Team Providers Care Microbiology Technician Name Role Phone Dimitris Alejandra, Tarik [...] pain (729.5, M79.604) Status: Active Anxiety (300.00, F41.1) Status: Active Depression (311, F32.9) Status: Active Hyperlipidemia (272.4, E78.5) Status: Active Hypokalemia (276.8, E87.6) Status: Active Reflux esophagitis (530.11, K21.0) Status: Active Allergic rhinitis (477.9, J30.9) Status: Active Renal insufficiency (593.9, N28.9) Status: Active Hearing loss, sensorineural (389.10, H90.5) Status: Active Fibromyalgia (729.1, M79.7) Status: Active CAD (coronary atherosclerotic disease) (414.00, I25.10) Status: Active Chronic obstructive pulmonary disease (496, J44.9) Status: Active Hypertension (401.9, I10) Status: Active Obesity (278.00, E66.9) Status: Active Low back pain radiating to right leg (724.2, M54.5) Status: Active Peripheral neuropathy (356.9, G62.9) Status: Active UTI (lower urinary tract infection) (599.0, N39.0) Status: Active Osteoarthritis (715.90, M19.90) Status: Active Medications Name Dates Details DULoxetine [...] Refills: 3 Donnie Blanco M.D.* Started 23-Jul-2013 [id number] GM Tube Phentermine HCl - 37.5 MG [...] 45 Refills: 0 Angelo Shanks M.D.* Started ActiveTerbinafine HCl - 250 MG Oral Tablet [...] Refills: 6 Angelo Randhawa M.D.* Started 23-Jan-2014 ActiveCiprofloxacin HCl - 500 MG Oral Tablet 1 tab bid x 10 days * Quantity: 20 Refills: 0 Angelo Shanks M.D.* Started ActiveCefuroxime Axetil 500 MG Oral Tablet TAKE 1 TABLET BY MOUTH TWICE DAILY * Quantity: 10 Refills: 5 Angelo Shanks M.D.* Started 29-Jul-2014 ActiveClotrimazole 10 MG Mouth/Throat Lozenge CHEW 1 AUBREY Every 4 hours * Quantity: 25 Refills: 0 Angelo Shanks M.D.* Started 13-Aug-2014 ActiveCyclobenzaprine HCl - 10 MG Oral Tablet TAKE 1 TABLET 3 times daily * Quantity: 90 Refills: 2 Angelo Shanks M.D.* Started Ended 20-Dec-2014 Active Allergies and Adverse Reactions Name Dates [...] (Less Than 30 Mm) MRI LUMBAR SPINE Ordered: Immunization Name Dates Details Influenza Administered on:26-Jan-2009 Pneumo (Prevnar) Administered on:06-Mar-2009 Influenza A (H1N1) Monoval Vac Intramuscular Suspension Administered on:14-Mar-2009 Influenza Lot #: [id number] Administered on:18-Feb-2010 Influenza Administered on:11-Feb-2011 Influenza Administered [...] smoker Vital Signs Date Test Result Details 10:33 BP Systolic 150 mm[Hg] Status: BP Diastolic 82 mm[Hg] Status: Heart Rate 66 /min Status: Weight 245 lb Status: Body Mass Index Calculated 38.37 kg/m2 Status: Body Surface Area Calculated 2.2 m2 Status: 09:49 BP Systolic 128 mm[Hg] Status: BP [...] low threshold) Range: >60 EST GFR, NON-AFR BERMUDIAN 25 ml/min (Below low threshold) Range: >60 Comments: EST GFR is reported in ml/min per 1.73 m2 of body surface area. For -[place], please multiple result by 1.2.----- GLUCOSE 108 [...] - CALCULATED 79 mg/dL (Better) Range: 0-130 12:33 Urinalysis, Reflex to Microscopic or Culture PRN 8005 pH 5.5 (Better) Range: 5.0-7.5 SP GRAVITY 1.010 (Better) Range: 1.010-1.030 APPEARANCE CLEAR (Better) Range: Clear COLOR YELLOW (Better) Range: Straw-Yellow PROTEIN NEGATIVE mg/dL (Better) Range: Negative-Trace GLUCOSE NEGATIVE mg/dL (Better) Range: Negative KETONE NEGATIVE mg/dL (Better) Range: Negative BILIRUB NEGATIVE (Better) Range: Negative BLOOD MODERATE (Abnormal) Range: Negative UROBIL 0.2 EU/dL (Better) Range: 0.2-1.0 NITRITE POSITIVE (Abnormal) Range: Negative Comments: Specimen referred to Microbiology for Culture----- LEUK SMALL (Abnormal) Range: Negative 12:33 Urine Microscopic UMIC WBC 6-10 /HPF (Abnormal) Range: 0-5 Comments: Specimen referred to Microbiology for Culture----- RBC 11-20 /HPF (Abnormal) Range: 0-2 MUCUS 1+ /LPF (Better) Range: Negative-2+ BACTERIA 3+ /HPF (Abnormal) Range: Negative-Trace Comments: Specimen referred to Microbiology for Culture----- EPITH 6-10 /HPF (Better) Range: 0-10 07:45 URINE CULTURE 5010 *URINE CULTURE Microbiology results (Better) Comments: URINE SOURCE: Clean CatchCOLONY COUNT>100,000 cfu/ml.RESULT:Citrobacter freundii complex ( Isolate 1)Antibiotic Sensitivity Isolate 1 -------- ---------Ampicillin 16 RAmpicillin/Sulbactam <=8/4 IBAugmentin 16/8 RCefazolin >16 RCefepime <=8 SCefoxitin >16 RCeftazidime <=1 IBCeftriaxone <=8 IBCefuroxime 8 IBCiprofloxacin <=1 SErtapenem <=1 SGentamicin <=4 SImipenem <=4 SLevofloxacin <=2 SMeropenem <=4 SNitrofurantoin <=32 SPiperacillin/Tazobactam <=16 IBTetracycline <=4 STobramycin <=4 STrimeth/Sulfa <=2/38 SS= Sensitive, I=Intermediate, R=Resistant, ESBL=Extended spectrum beta-lactamase enzymes produced, Ferdinand=Beta-lactamase positive, IB=Inducible Beta-lactamase enzymes known to be present.----- Plan of Care Planned Observations* Name Dates Details Planned Goals not documented Goal Planned Encounters* Appointment; Provider: Angelo Randhawa On 23-Jul-2015 14:30 * Appointment; Provider: Donnie Blanco On 02-Jan-2015 11:15 * Appointment; Provider: Angelo Randhawa On 31-Jan-2011 [...] Problem not documented On 24-Feb-2014 13:30 Appointment; oDnnie Blanco Encounter Diagnosis: Problem not documented On [...]
--- OUTSIDE RECORDS SUMMARY | 2017-06-16 14:09 | XMS REPORT ---
Author Author DELMI BYRNES [facility] Address [address] [place] [address] Care Team Providers Care Nurse Practitioner Hospitalist Name Role Phone DELMI BYRNES Unavailable PROBLEMS Type Condition ICD9-CM Code [id number] Code Onset Dates Condition Status SNOMED Code Problem Fibromyalgia M79.7 Active 211166799 Problem Acute gout involving toe of right foot, unspecified cause M10.9 Active 444395562 Problem Edema, unspecified type R60.9 Active 006554335 Problem Lumbar radiculopathy M54.16 Active 903866066 Problem Chronic depression F32.9 Active 976537747 Problem Chronic kidney disease, stage 2 (mild) N18.2 Active 504628589 Problem Constipation, unspecified constipation type K59.00 Active 22648732 Problem Prediabetes R73.03 Active 766223333 Problem Essential hypertension I10 Active 23836290 Problem Anxiety F41.9 Active 76992619 Problem Coronary artery disease involving [place] coronary artery, angina presence unspecified, unspecified whether [place] or transplanted heart I25.10 Active 3983975107514 Problem Depressive disorder, not elsewhere classified F32.9 Active 73645890 Problem Hyperlipidemia, unspecified hyperlipidemia type E78.5 Active 91411713 Problem Arthritis M19.90 Active 6175460 Problem Barretts esophagus with dysplasia K22.719 Active 2286204949247537 ALLERGIES No Information SOCIAL HISTORY Never Assessed PLAN OF CARE VITAL SIGNS MEDICATIONS Medication Instructions Dosage Frequency Start Date End Date Duration Status Colace 100 mg Orally Once a day 1 capsule as needed 24h 30 days Active Diclofenac Sodium 75 MG Orally 2 times a day 1 tablet with food or milk 12h May, 30 day(s) Active Cholecalciferol 1000 UNIT Orally Once a day 2 capsules 24h 30 days Active Multivitamin Adult - Orally Once a day 1 tablet 24h 30 days Active RESULTS No Results PROCEDURES [...]
--- OUTSIDE RECORDS SUMMARY | 2017-06-16 14:10 | XMS REPORT | Summary of Care ---
Author Author Dimitris Alejandra, Tarik Stephens Organization Unknown Address [address] [place], [place] [id number] Phone Unavailable Care Team Providers Care Audiology Director Name Role Phone Dimitris Alejandra, Tarik Stephens [...] ActiveNicotine 21-14-7 MG/24HR Transdermal Kit 21 mg [id number],14mgx2 wk,3oxc4kg * Quantity: 1 Refills: 0 Angelo Shanks [...] Refills: 3 Donnie Blanco M.D.* Started 23-Jul-2013 [id number] GM Tube Belviq 10 MG Oral Tablet [...] Intramuscular Suspension Administered on:14-Mar-2009 Influenza Lot #: [id number] Administered on:18-Feb-2010 Influenza Administered on:11-Feb-2011 Influenza Administered [...] not documented On 26-Jun-2014 15:00 Appointment; Angelo hSanks Encounter Diagnosis: Problem not documented On 16-Jun-2014 [...] not documented On 24-Jul-2013 08:30 Appointment; Donnie Blanoc Encounter Diagnosis: Problem not documented On 23-Jul-2013 [...]
--- OUTSIDE RECORDS SUMMARY | 2017-06-16 14:10 | XMS REPORT ---
Author Author DELMI BYRNES [facility] Address [address] [place] [address] Care Team Providers Care Window And Door Installer Name Role Phone DELMI BYRNES Unavailable PROBLEMS Type Condition ICD9-CM Code [id number] Code Onset Dates Condition Status SNOMED Code Problem Fibromyalgia M79.7 Active 811780549 Problem Acute gout involving toe of right foot, unspecified cause M10.9 Active 296786705 Problem Edema, unspecified type R60.9 Active 512245086 Problem Lumbar radiculopathy M54.16 Active 618078912 Problem Chronic depression F32.9 Active 626243404 Problem Chronic kidney disease, stage 2 (mild) N18.2 Active 389911633 Problem Constipation, unspecified constipation type K59.00 Active 43086017 Problem Prediabetes R73.03 Active 259640965 Problem Essential hypertension I10 Active 18482647 Problem Anxiety F41.9 Active 58140002 Problem Coronary artery disease involving [place] coronary artery, angina presence unspecified, unspecified whether [place] or transplanted heart I25.10 Active 1460265371286 Problem Depressive disorder, not elsewhere classified F32.9 Active 87040909 Problem Hyperlipidemia, unspecified hyperlipidemia type E78.5 Active 08648557 Problem Arthritis M19.90 Active 8179059 Problem Barretts esophagus with dysplasia K22.719 Active 6750792509244839 ALLERGIES Substance Reaction Event Type Date Status Milk Unknown Non Drug Allergy Jul, Active Eggs Unknown Non Drug Allergy Jul, Active SOCIAL HISTORY Never Assessed PLAN OF CARE Activity Details Follow Up 3 Months Reason: VITAL SIGNS Height 67 in 2016-07-28 Weight 235.5 lbs 2016-07-28 Temperature 97.8 degrees Fahrenheit 2016-07-28 Heart Rate 80 bpm 2016-07-28 Respiratory Rate 24 2016-07-28 BMI 36.88 kg/m2 2016-07-28 Blood pressure systolic 170 mmHg 2016-07-28 Blood pressure diastolic 95 mmHg 2016-07-28 MEDICATIONS Medication Instructions Dosage Frequency Start Date End Date Duration Status Exelon 4.6 MG/24HR Transdermal Once a day 1 patch to skin 24h Active Zyrtec Allergy 10 MG Orally Once a day 1 tablet 24h Active Cetirizine HCl 10 TAKE 1 TABLET BY MOUTH DAILY 22 Active Myrbetriq 50 mg Orally Once a day 1 tablet 24h Active Imodium A-D 2 MG Orally 8 time(s) a day 1 tablet Active Risperdal 1 MG Orally Once a day 1 tablet 24h Active Alprazolam 1 MG Orally Once a day, hs 1 tablet Active Atenolol 50 mg Orally twice a day 1 tablet 12h Active Colace 100 mg Orally Once a day 1 capsule as needed 24h 30 days Active Oxycodone HCl 5 MG Orally every 6 hrs 1 tablet 6h Active Cholecalciferol 1000 UNIT Orally Once a day 2 capsules 24h 30 days Active Adjust Bath/Shower Seat/Back - use in shower 10 Jun, 2016 Active Diclofenac Sodium 75 MG Orally 2 times a day 1 tablet with food or milk 12h May, 30 day(s) Active Ranitidine HCl 150 MG Orally twice a day 1 tablet at bedtime 12h Active Pantoprazole Sodium 40 mg Orally Once a day 1 tablet 24h Active Aspirin 325 MG Orally Once a day 1 tablet 24h 30 days Active Duloxetine HCl 30 MG Orally 3 times a day 1 capsule 8h Active VESIcare 10 mg Orally Once a day 1 tablet 24h Active Multivitamin Adult - Orally Once a day 1 tablet 24h 30 days Active Triamcinolone Acetonide 0.1 % Externally Twice a day 1 application to affected area 12h Active Folic Acid 1 MG Orally twice a day 1 tablet 12h Active Lyrica 150 MG Orally 3 times a day 1 capsule 8h 28 days Active Exelon 4.6 MG/24HR Transdermal Once a day 1 patch to skin 24h 30 days Active RESULTS Name Result Date Reference Range [facility] 2016-07-28 Glucose, Serum 180 65-99 BUN 15 8-27 Creatinine, Serum 0.91 0.57-1.00 eGFR If NonAfricn Am 68 >59 eGFR If Africn Am 79 >59 BUN/Creatinine Ratio 16 11-26 Sodium, Serum 140 134-144 Potassium, Serum 4.1 3.5-5.2 Chloride, Serum 100 96-106 Carbon Dioxide, Total 18 18-29 Calcium, Serum 9.8 8.7-10.3 PROCEDURES Procedure Date Ordered Result Body Site VENIPUNCT, ROUTINE* July 28, 2016 BASIC METABOLIC PANEL July 28, 2016 IMMUNIZATIONS No Known Immunizations MEDICAL (GENERAL) [...]
--- OUTSIDE RECORDS SUMMARY | 2017-06-16 14:11 | XMS REPORT ---
Author Author DELMI BYRNES Organization [employer] Address Unknown Phone Unavailable Care Team Providers Care Bicycle Mechanic Name Role Phone DELMI BYRNES CP Unavailable Allergies No Known Allergies Problems No Known Problems Medications No Known Medications Results No Known Results Summary Purpose [employer] Submission
--- OUTSIDE RECORDS SUMMARY | 2017-06-16 14:11 | XMS REPORT ---
Author Author DELMI BYRNES [facility] Address [address] [place] [address] Care Team Providers Care Marine Electronics Technician Name Role Phone DELMI BYRNES Unavailable PROBLEMS Type Condition ICD9-CM Code XCA39-MG Code Onset Dates Condition Status SNOMED Code Problem Coronary artery disease involving [place] coronary artery, angina presence unspecified, unspecified whether [place] or transplanted heart I25.10 Active 7020747080435 Problem Acute gout involving toe of right foot, unspecified cause M10.9 Active 295549518 Problem Edema, unspecified type R60.9 Active 552013157 Problem Lumbar radiculopathy M54.16 Active 177387325 Problem Chronic depression F32.9 Active 762211181 Problem Chronic kidney disease, stage 2 (mild) N18.2 Active 411242184 Problem Constipation, unspecified constipation type K59.00 Active 68821044 Problem Prediabetes R73.03 Active 281600028 Problem Essential hypertension I10 Active 36784391 Problem Hyperlipidemia, unspecified hyperlipidemia type E78.5 Active 08013017 Problem Anxiety F41.9 Active 55401458 Problem Depressive disorder, not elsewhere classified F32.9 Active 04332986 Problem Arthritis M19.90 Active 6173329 Problem Barretts esophagus with dysplasia K22.719 Active 1857370875795945 Problem Fibromyalgia M79.7 Active 627010439 ALLERGIES Unknown Allergies SOCIAL HISTORY No smoking Hx information available PLAN OF CARE VITAL SIGNS MEDICATIONS Medication Instructions Dosage Frequency Start Date End Date Duration Status Diclofenac Sodium 75 MG Orally bid 1 tablet with food or milk 12h May, 2 Aug, 2016 30 day(s) Active RESULTS No Results PROCEDURES No Known procedures IMMUNIZATIONS No Known Immunizations
--- OUTSIDE RECORDS SUMMARY | 2017-06-16 14:11 | XMS REPORT ---
Author Author DELMI BYRNES [facility] Address [address] [place] [address] Care Team Providers Care Mosaic Floor Layer Name Role Phone DELMI BYRNES Unavailable PROBLEMS Type Condition ICD9-CM Code [id number] Code Onset Dates Condition Status SNOMED Code Problem Fibromyalgia M79.7 Active 687144021 Problem Acute gout involving toe of right foot, unspecified cause M10.9 Active 744963666 Problem Edema, unspecified type R60.9 Active 690613497 Problem Lumbar radiculopathy M54.16 Active 823342418 Problem Chronic depression F32.9 Active 279295523 Problem Chronic kidney disease, stage 2 (mild) N18.2 Active 459645319 Problem Constipation, unspecified constipation type K59.00 Active 15933845 Problem Prediabetes R73.03 Active 708613705 Problem Essential hypertension I10 Active 00047073 Problem Anxiety F41.9 Active 97454452 Problem Coronary artery disease involving [place] coronary artery, angina presence unspecified, unspecified whether [place] or transplanted heart I25.10 Active 5197662984383 Problem Depressive disorder, not elsewhere classified F32.9 Active 23652486 Problem Hyperlipidemia, unspecified hyperlipidemia type E78.5 Active 52537816 Problem Arthritis M19.90 Active 5892472 Problem Barretts esophagus with dysplasia K22.719 Active 0192926609193693 ALLERGIES No Information SOCIAL HISTORY Never Assessed PLAN OF CARE VITAL SIGNS MEDICATIONS Medication Instructions Dosage Frequency Start Date End Date Duration Status Aspirin 325 MG Orally Once a day 1 tablet 24h 30 days Active Exelon 4.6 MG/24HR Transdermal Once a day 1 patch to skin 24h 30 days Active RESULTS No Results [...]
--- OUTSIDE RECORDS SUMMARY | 2017-06-16 14:11 | XMS REPORT ---
Author Author GENERATED, SYSTEM Organization Unknown Address Unknown Phone Unavailable Care Team Providers Care Pallet Sorter Name Role Phone MD BOYD, HANDY PP Reason For Visit Chief Complaint WEAKNESS Social History Functional Status Vital Signs Results Chemistry from 03/31/2015 8:27 AMSODIUM 141 MMOL/L (136-145 MMOL/L) POTASSIUM 3.1 MMOL/L L (3.5-5.1 MMOL/L) CHLORIDE 109 MMOL/L H (98-107 MMOL/L) TCO2 24.0 MMOL/L (21.0-32.0 MMOL/L) *ANION GAP 8.0 MMOL/L (8.0-16.0 MMOL/L) BUN 18 MG/DL (7-18 MG/DL) CREATININE 1.09 MG/DL H (0.55-1.02 MG/DL) *BUN/CREATININE RATIO 16.5 (9.1-17.0 ) GLUCOSE 119 MG/DL H (65-99 MG/DL) *GFR EST NON AFR CANADIAN 55 ML/MIN *GFRA EST AFR AMER 64 ML/MIN CALCIUM 8.6 MG/DL (8.5-10.1 MG/DL) BILIRUBIN TOTAL 0.77 MG/DL (0.20-1.00 MG/DL) TOTAL PROTEIN 6.4 GM/DL (6.4-8.2 GM/DL) ALBUMIN 2.7 GM/DL L (3.4-5.0 GM/DL) *GLOBULIN 3.7 GM/DL H (2.3-3.5 GM/DL) *A/G RATIO 0.7 MG/DL L (1.5-2.2 MG/DL) ALK PHOS 122 U/L H (46-116 U/L) ALT (SGPT) 22 U/L (16-63 U/L) AST (SGOT) 17 U/L (15-37 U/L) TROPONIN-I <0.04 (SEE BELOW ) B-TYPE NATRIURETIC PROTEIN 253 PG/ML H (1-100 PG/ML) CK 70 U/L (26-192 U/L) Hematology from 03/31/2015 8:27 AMWBC 12.0 X10e3/UL H (3.6-11.2 X10e3/UL) RBC 3.88 X10e6/UL (3.63-4.92 X10e6/UL) HEMOGLOBIN 11.1 G/DL (11.0-14.3 G/DL) HEMATOCRIT 33.9 % (31.2-41.9 %) *MCV 87.3 FL (79.0-98.0 FL) *MCH 28.5 PG (27.0-33.0 PG) *MCHC 32.7 G/DL (32.0-36.0 G/DL) *RDW 15.7 % (12.3-17.0 %) *RDWSD 47.7 (37.1-47.8 ) PLATELET 188 X10e3/UL (159-386 X10e3/UL) *MPV 7.2 FL L (7.4-10.4 FL) AUTOMATED DIFF PERFORMED SEGS 80.9 % *LYMPHOCYTES 10.3 % *MONOCYTES 7.1 % *EOSINOPHILS 1.4 % *BASOPHILS 0.3 % *ABSOLUTE NEUTROPHILS 9.70 X10e3/UL H (1.80-7.80 X10e3/UL) *ABSOLUTE LYMPHOCYTES 1.20 X10e3/UL (1.00-3.00 X10e3/UL) *ABSOLUTE MONOCYTES 0.80 X10e3/UL (0.30-1.00 X10e3/UL) *ABSOLUTE EOSINOPHILS 0.20 X10e3/UL (0.00-0.50 X10e3/UL) *ABSOLUTE BASOPHILS 0.00 X10e3/UL (0.00-0.20 X10e3/UL) Urinalysis from 03/31/2015 8:00 AM*URINE COLOR DK YELLOW (STRAW/YELL/DK YELL ) *URINE APPEARANCE SL CLOUDY A (CLEAR ) URINE PH 7.0 (5.0-8.0 ) URINE SPECIFIC GRAVITY 1.020 (<=1.005->=1.030 ) *URINE GLUCOSE NEGATIVE MG/DL (NEGATIVE MG/DL) *URINE BILIRUBIN SMALL A (NEGATIVE ) *URINE KETONES NEGATIVE MG/DL (NEGATIVE MG/DL) *URINE BLOOD TRACE-INTACT A (NEGATIVE ) *URINE PROTEIN TRACE MG/DL A (NEGATIVE MG/DL) *URINE UROBILINOGEN 2.0 EU/DL A (0.2-1.0 EU/DL) *URINE NITRITES POSITIVE A (NEGATIVE ) *URINE LEUKOCYTES TRACE A (NEGATIVE ) *MICROSCOPIC EXAM PERFORMED PERFORMED *WBC URINE 10-25 /HPF A (0-5 /HPF) *RBC URINE 1-5 /HPF A (0-1 /HPF) *SQUAMOUS EP. CELLS FEW /LPF (NEG-FEW /LPF) *MUCOUS THREADS MODERATE /LPF A (NEGATIVE /LPF) *BACTERIA MANY /HPF A (NEGATIVE /HPF) Microbiology from 03/31/2015 8:00 AM* CULTURE URINE (Preliminary Result) Specimen Number: [id number] Sample Collection Date/Time: 03/31/2015 8:00 AM Specimen Source: Urine Catheter CULTURE URINE: Gram-negative bacillus >100,000 cfu/ml ID and Susceptibility to follow DX Radiology from 03/31/2015 7:47 AMCHEST 1 VIEW History: cough chest pain Priors: 06/29/2012 Findings: There is unchanged cardiomegaly. There is mild perihilar and lower lobe pulmonary edema. No pneumothorax or pleural effusion identified. Impression: Mild CHF Electronically signed by: Peng Bustillos MD Dictated: 03/31/2015 09:31 MRI from 03/31/2015 11:48 AMI BRAIN W/O CONTRAST History: right side weakness . Onset was 2 a.m. this morning. Patient found down. Difficulty ambulating Priors: None. Findings: The ventricles, sulci, and cisterns appear within normal limits. There is no midline shift. Normal vascular flow voids are seen at the skull base. The owens-white matter differentiation is within normal limits. There is no focus of restricted diffusion seen to suggest acute stroke. There are no space occupying lesions seen. The visualized paranasal sinuses and mastoid air cells are unremarkable. Impression: Unremarkable MRI examination of the brain. Electronically signed by: Peng Bustillos MD Dictated: 03/31/2015 12:10 CT Scan from 03/31/2015 8:07 AMCT CEREBRAL W/O CONTRAST History: weakness legs . Onset was 2 am, Pt fell out of bed around 2am this morning. Found on floor by family she lives with around 7 am. Pt has had increased weakness. Pt states she has difficulty with walking normally. Denies pain at this time Priors: None. Findings: Ventricles and Extra axial spaces: Normal in size and morphology for the patient's age. Hemorrhage: None. Cerebral parenchyma: Normal. Mass effect/midline shift: None. Brainstem/Cerebellum: Normal. Calvarium: Normal. Visualized Paranasal sinuses/Mastoids: There is partial opacification of the right mastoid air cells. Impression: No acute intracranial abnormality. Partial opacification of the right mastoid air cells. Electronically signed by: Yvrose Hawley MD Dictated: 03/31/2015 08:25 Problems Encounter Diagnosis No relevant problems exist. [...]
--- OUTSIDE RECORDS SUMMARY | 2017-06-16 14:11 | XMS REPORT ---
Author Author DELMI BYRNES Organization [facility] Address [address] [place] [address] Care Team Providers Care District Claims Manager Name Role Phone DELMI BYRNES Unavailable PROBLEMS Type Condition ICD9-CM Code FQN00-HL Code Onset Dates Condition Status SNOMED Code Problem Fibromyalgia M79.7 Active 312594299 Problem Anxiety F41.9 Active 24644286 Problem Arthritis M19.90 Active 3878566 Problem Barretts esophagus with dysplasia K22.719 Active 0948392404994765 Problem Coronary artery disease involving [place] coronary artery, angina presence unspecified, unspecified whether [place] or transplanted heart I25.10 Active 6864562755596 Problem Hyperlipidemia, unspecified hyperlipidemia type E78.5 Active 05929943 Problem Chronic bronchitis, unspecified chronic bronchitis type J42 Active 23647342 Problem Lumbar radiculopathy M54.16 Active 426878191 Problem Essential hypertension I10 Active 12335362 Problem Chronic kidney disease, stage 2 (mild) N18.2 Active 547049650 Problem Chronic depression F32.9 Active 809541018 Problem Prediabetes R73.03 Active 216715246 ALLERGIES No Information SOCIAL HISTORY Never Assessed PLAN OF CARE VITAL SIGNS MEDICATIONS Medication Instructions Dosage Frequency Start Date End Date Duration Status Alprazolam 1 MG Orally Once a day, [...]
--- OUTSIDE RECORDS SUMMARY | 2017-06-16 14:11 | XMS REPORT ---
Author Author DELMI BYRNES Organization [facility] Address [address] [place] [address] Care Team Providers Care Mobile Paint Specialist Name Role Phone DELMI BYRNES Unavailable PROBLEMS Type Condition ICD9-CM Code EXQ52-JN Code Onset Dates Condition Status SNOMED Code Problem Fibromyalgia M79.7 Active 837625037 Problem Acute gout involving toe of right foot, unspecified cause M10.9 Active 412044265 Problem Edema, unspecified type R60.9 Active 279079053 Problem Lumbar radiculopathy M54.16 Active 338020378 Problem Chronic depression F32.9 Active 812076574 Problem Chronic kidney disease, stage 2 (mild) N18.2 Active 862691250 Problem Constipation, unspecified constipation type K59.00 Active 88934352 Problem Prediabetes R73.03 Active 933283983 Problem Essential hypertension I10 Active 09398201 Problem Anxiety F41.9 Active 75652351 Problem Coronary artery disease involving [place] coronary artery, angina presence unspecified, unspecified whether [place] or transplanted heart I25.10 Active 0107965955171 Problem Depressive disorder, not elsewhere classified F32.9 Active 86833903 Problem Hyperlipidemia, unspecified hyperlipidemia type E78.5 Active 67342013 Problem Arthritis M19.90 Active 0663603 Problem Barretts esophagus with dysplasia K22.719 Active 1066014165412159 ALLERGIES No Information SOCIAL HISTORY Never Assessed [...]
--- OUTSIDE RECORDS SUMMARY | 2017-06-16 14:11 | XMS REPORT ---
Author Author DELMI BYRNES [facility] Address [address] [place] [address] Care Team Providers Care Band Saw Operator Cake Cutting Name Role Phone DELMI BYRNES Unavailable PROBLEMS Type Condition ICD9-CM Code [id number] Code Onset Dates Condition Status SNOMED Code Problem Depressive disorder, not elsewhere classified F32.9 Active 18770690 Problem Hyperlipidemia, unspecified hyperlipidemia type E78.5 Active 33689197 Problem Barretts esophagus with dysplasia K22.719 Active [id number] Assessment Onychomycosis B35.1 Apr, Active 594356167 Assessment Arthritis M19.90 Apr, Active 1693851 Problem Acute gout involving toe of right foot, unspecified cause M10.9 Active 355026712 Problem Edema, unspecified type R60.9 Active 899786195 Problem Arthritis M19.90 Active 7916364 Problem Anxiety F41.9 Active 64222488 Problem Coronary artery disease involving [place] coronary artery, angina presence unspecified, unspecified whether [place] or transplanted heart I25.10 Active 0394033932957 Problem Fibromyalgia M79.7 Active 004928910 ALLERGIES Substance Reaction Event Type Date Status N.K.D.A. Unknown Non Drug Allergy Apr, Unknown SOCIAL HISTORY No smoking Hx information available PLAN OF CARE VITAL SIGNS Height 67 in 2016-04-19 Weight 235 lbs 2016-04-19 Heart Rate 72 bpm 2016-04-19 Respiratory Rate 18 2016-04-19 BMI 36.80 kg/m2 2016-04-19 Blood pressure systolic 128 mmHg 2016-04-19 Blood pressure diastolic 80 mmHg 2016-04-19 MEDICATIONS Medication Instructions Dosage Frequency Start Date End Date Duration Status VESIcare 10 MG Orally Once a day 1 tablet 24h Active Cholecalciferol 1000 UNIT Orally Once a day 2 capsules 24h Active Multivitamin Adult - Active Lyrica 150 MG Orally t i d 1 capsule Active Alprazolam 1 MG Orally Once a day 1 tablet 24h Active Ranitidine HCl 150 MG Orally twice a day 1 tablet at bedtime 12h Active Aspirin 325 MG Orally Once a day 1 tablet 24h Active Atenolol 50 mg Orally twice a day 1 tablet 12h Active Tramadol HCl 50 MG Orally every 6 hrs 1 tablet as needed 6h Active Myrbetriq 50 MG Orally Once a day 1 tablet 24h Active Oxycodone HCl 5 mg Orally every 3 hrs as needed 1 tablet Mar, Apr, 30 days Active Risperdal 1 MG Orally Once a day 1 tablet 24h Active Folic Acid 1 MG Orally twice a day 1 tablet 12h Active Loratadine 10 MG Orally Once a day 1 tablet 24h Active Colace 100 MG Orally Once a day 1 capsule as needed 24h Active Exelon 4.6 MG/24HR Transdermal Once a day 1 patch to skin 24h Active Triamcinolone Acetonide 0.1 % Externally Twice a day 1 application to affected area 12h Active Zyrtec Allergy 10 MG Orally Once a day 1 tablet 24h Active Pantoprazole Sodium 40 MG Orally Once a day 1 tablet 24h Active Duloxetine HCl 30 MG Orally twice a day 1 capsule 12h Active Imodium A-D 2 MG Orally 8 time(s) a day 1 tablet Active RESULTS No Results PROCEDURES Procedure Date Ordered Related Diagnosis Body Site Office Visit, Est Pt., Level 3 Apr 19, 2016 IMMUNIZATIONS No Known Immunizations
--- OUTSIDE RECORDS SUMMARY | 2017-06-16 14:11 | XMS REPORT ---
Author Author DELMI BYRNES Organization [employer] Address Unknown Phone Unavailable Care Team Providers Care Process Planner Name Role Phone DELMI BYRNES CP Unavailable Allergies No Known Allergies Problems Problem Type Condition Code Onset Dates Condition Status Problem Depressive disorder, not elsewhere classified F32.9 Active Problem Coronary artery disease involving [place] coronary artery, angina presence unspecified, unspecified whether [place] or transplanted heart I25.10 Active Problem Fibromyalgia M79.7 Active Problem Edema, unspecified type R60.9 Active Problem Hyperlipidemia, unspecified hyperlipidemia type E78.5 Active Problem Barretts esophagus with dysplasia K22.719 Active Problem Arthritis M19.90 Active Problem Anxiety F41.9 Active Medications No Known Medications Results No Known Results Summary Purpose eClinicalWorks Submission
--- OUTSIDE RECORDS SUMMARY | 2017-06-16 14:11 | XMS REPORT ---
Author Author DELMI BYRNES Organization [facility] Address [address] [place] [address] Care Team Providers Care Physician Practice Market Manager Name Role Phone DELMI BYRNES Unavailable PROBLEMS Type Condition ICD9-CM Code [id number] Code Onset Dates Condition Status SNOMED Code Problem Fibromyalgia M79.7 Active 066499507 Problem Acute gout involving toe of right foot, unspecified cause M10.9 Active 428191684 Problem Edema, unspecified type R60.9 Active 556730128 Problem Lumbar radiculopathy M54.16 Active 041214968 Problem Chronic depression F32.9 Active 705309523 Problem Chronic kidney disease, stage 2 (mild) N18.2 Active 873933819 Problem Constipation, unspecified constipation type K59.00 Active 04341947 Problem Prediabetes R73.03 Active 442708932 Problem Essential hypertension I10 Active 27177374 Problem Anxiety F41.9 Active 66031823 Problem Coronary artery disease involving [place] coronary artery, angina presence unspecified, unspecified whether [place] or transplanted heart I25.10 Active 3417425986346 Problem Depressive disorder, not elsewhere classified F32.9 Active 93292759 Problem Hyperlipidemia, unspecified hyperlipidemia type E78.5 Active 97208865 Problem Arthritis M19.90 Active 1361390 Problem Barretts esophagus with dysplasia K22.719 Active [id number] ALLERGIES No Information SOCIAL HISTORY Never Assessed [...]
--- OUTSIDE RECORDS SUMMARY | 2017-06-16 14:11 | XMS REPORT ---
Author Author DELMI BYRNES [facility] Address [address] [place] [address] Care Team Providers Care A R Collections Rep Name Role Phone DELMI BYRNES Unavailable PROBLEMS Type Condition ICD9-CM Code [id number] Code Onset Dates Condition Status SNOMED Code Problem Fibromyalgia M79.7 Active 483727140 Problem Acute gout involving toe of right foot, unspecified cause M10.9 Active 385941278 Problem Edema, unspecified type R60.9 Active 839317118 Problem Lumbar radiculopathy M54.16 Active 046052212 Problem Chronic depression F32.9 Active 115027321 Problem Chronic kidney disease, stage 2 (mild) N18.2 Active 850747838 Problem Constipation, unspecified constipation type K59.00 Active 33884302 Problem Prediabetes R73.03 Active 397357282 Problem Essential hypertension I10 Active 47323789 Problem Anxiety F41.9 Active 32744177 Problem Coronary artery disease involving [place] coronary artery, angina presence unspecified, unspecified whether [place] or transplanted heart I25.10 Active 7352437643232 Problem Depressive disorder, not elsewhere classified F32.9 Active 49092529 Problem Hyperlipidemia, unspecified hyperlipidemia type E78.5 Active 95324763 Problem Arthritis M19.90 Active 0427017 Problem Barretts esophagus with dysplasia K22.719 Active 7412573967239270 ALLERGIES Substance Reaction Event Type Date Status Milk Unknown Non Drug Allergy Jul, Active Eggs Unknown Non Drug Allergy Jul, Active SOCIAL HISTORY Never Assessed PLAN OF CARE Activity Details Follow Up 6 Weeks Reason: VITAL SIGNS Height 67 in 2016-08-01 Weight 228.0 lbs 2016-08-01 Temperature 97.6 degrees Fahrenheit 2016-08-01 Heart Rate 70 bpm 2016-08-01 Respiratory Rate 20 2016-08-01 BMI 35.71 kg/m2 2016-08-01 Blood pressure systolic 162 mmHg 2016-08-01 Blood pressure diastolic 98 mmHg 2016-08-01 MEDICATIONS Medication Instructions Dosage Frequency Start Date End Date Duration Status Atenolol 50 mg Orally twice a day 1 tablet 12h Active Imodium A-D 2 MG Orally 8 time(s) a day 1 tablet Active Alprazolam 1 MG Orally Once a day, hs 1 tablet Active VESIcare 10 mg Orally Once a day 1 tablet 24h Active Exelon 4.6 MG/24HR Transdermal Once a day 1 patch to skin 24h 30 days Active Pantoprazole Sodium 40 mg Orally Once a day 1 tablet 24h Active Myrbetriq 50 mg Orally Once a day 1 tablet 24h Active Colace 100 mg Orally Once a day 1 capsule as needed 24h 30 days Active Zyrtec Allergy 10 MG Orally Once a day 1 tablet 24h Active Ranitidine HCl 150 MG Orally twice a day 1 tablet at bedtime 12h Active Lisinopril 10 mg Orally Once a day 1 tablet 24h Jul, 30 day(s) Active Diclofenac Sodium 75 MG Orally 2 times a day 1 tablet with food or milk 12h May, 30 day(s) Active Folic Acid 1 MG Orally twice a day 1 tablet 12h Active Adjust Bath/Shower Seat/Back - use in shower Jun, Active Duloxetine HCl 30 MG Orally 3 times a day 1 capsule 8h Active Lyrica 150 MG Orally 3 times a day 1 capsule 8h 28 days Active Risperdal 1 MG Orally Once a day 1 tablet 24h Active Exelon 4.6 MG/24HR Transdermal Once a day 1 patch to skin 24h Active Oxycodone HCl 5 MG Orally every 6 hrs 1 tablet 6h Active Cetirizine HCl 10 TAKE 1 TABLET BY MOUTH DAILY 22 Active Triamcinolone Acetonide 0.1 % Externally Twice a day 1 application to affected area 12h Active Aspirin 325 MG Orally Once a day 1 tablet 24h 30 days Active Cholecalciferol 1000 UNIT Orally Once a [...]
--- OUTSIDE RECORDS SUMMARY | 2017-06-16 14:12 | XMS REPORT | Summary of Care ---
Author Author Bella Alejandra, Donnie Organization Unknown Address Unknown Phone Unavailable Care Team Providers Care Electrical Design Technologist Name Role Phone Dimitris Alejandra, Tarik Stephens [...] Refills: 3 Italia Bang M.D.* Started 18-Jan-2011 ActiveLisinopril 10 MG Oral Tablet [...] ActiveNicotine 21-14-7 MG/24HR Transdermal Kit 21 mg pqafwm1kp,14mgx2 wk,9wzg5za * Quantity: 1 Refills: 0 Angelo Shanks [...] Refills: 3 Donnie Blanco M.D.* Started 23-Jul-2013 [id number] GM Tube Belviq 10 MG Oral Tablet [...] Refills: 6 Angelo Randhawa M.D.* Started 23-Jan-2014 ActiveALPRAZolam 1 MG Oral Tablet TAKE 1 TABLET BY MOUTH FOUR TIMES DAILY NEEDED FOR ANXIETY * Quantity: 120 Refills: 0 Angelo Shanks M.D.* Started 30-Sep-2011 ActiveCefuroxime Axetil 500 MG Oral Tablet TAKE [...] Refills: 0 Donnie Blanco M.D.* Started 13-Jun-2013 ActiveHydrocodone-Acetaminophen 10-325 MG Oral Tablet TAKE ONE TABLET BY MOUTH EVERY 4 TO 6 HOURS NEEDEDMAX 5 PER DAYMAY FILL ON OR AFTER 10/20/14* * Quantity: 150 Refills: 0 Donnie Blanco M.D.* Started 28-Jan-2011 Active Allergies and Adverse Reactions Name Dates [...] Intramuscular Suspension Administered on:14-Mar-2009 Influenza Lot #: [id number] Administered on:18-Feb-2010 Influenza Administered on:11-Feb-2011 Influenza Administered [...] smoker Vital Signs Date Test Result Details 16-Sep-2014 14:35 BP Systolic 170 mm[Hg] Status: [...] not documented On 02-May-2014 08:00 Appointment; Angelo Shakns Encounter Diagnosis: Problem not documented On 29-Apr-2014 [...] not documented On 20-Feb-2014 11:15 Appointment; Malik Watknis Encounter Diagnosis: Problem not documented On 18-Feb-2014 [...]
--- OUTSIDE RECORDS SUMMARY | 2017-06-16 14:12 | XMS REPORT | Summary of Care ---
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, K22.70) Status: Active Anxiety (300.00, F41.1) Status: Active [...] Status: Active Osteoarthritis (715.90, M19.90) Status: Active Dermatitis (692.9, L30.9) Status: Active Right leg pain (729.5, M79.604) Status: Active Right hip pain (719.45, M25.551) Status: Active Edema (782.3, R60.9) Status: Active Medications Name Dates Details DULoxetine [...] 30 Refills: 6 Angelo Randhawa M.D.* Started ActiveProAir HFA 108 (90 Base) MCG/ACT Inhalation Aerosol Solution INHALE 2 PUFFS BY MOUTH EVERY 4 HOURS NEEDED * Quantity: 8.5 Refills: 2 Angelo Shanks M.D.* Started 04-May-2009 ActiveLoratadine 10 [...] Refills: 11 Italia Bang M.D.* Started 18-Jan-2011 ActiveLisinopril 10 [...] NEEDED * Quantity: 30 Refills: 2 Angelo hSanks M.D.* Started 30-Jul-2012 ActiveOxyCONTIN 20 MG Oral Tablet ER 12 Hour Abuse-Deterrent TAKE 1 TABLET Q 12HRSMUST LAST 30 DAYS*MAY FILL ON OR AFTER 12/17/14* * Quantity: 60 Refills: 0 Donnie Blanco M.D.* Started 13-Jun-2013 ActiveCetirizine HCl - 10 MG Oral Tablet TAKE 1 TABLET BY MOUTH DAILY * Quantity: 30 Refills: 5 Angelo Shanks M.D.* Started 06-Apr-2009 ActivePantoprazole Sodium 40 MG Oral Tablet Delayed Release TAKE 1 TABLET BY MOUTH 30 MINUTES BEFORE BREAKFAST DAILY * Quantity: 30 Refills: 11 Merritt, Italia Alejandra* Started 08-Aug-2013 ActiveMeloxicam 15 MG Oral Tablet [...] Refills: 3 Donnie Blanco M.D.* Started 23-Jul-2013 [id number] GM Tube Ondansetron 4 MG Oral Tablet [...] Refills: 0 Angelo Shanks M.D.* Started 23-Jul-2013 ActiveLyrica 150 MG Oral Capsule TAKE 1 CAPSULE BY MOUTH THREE TIMES DAILY * Quantity: 90 Refills: 0 Angelo Shanks M.D.* Started 17-Sep-2013 ActiveTriamcinolone Acetonide 0.1 % External Cream APPLY A SMALL AMOUNT TO THE AFFECTED AREAS 3 TIMES DAILY * Quantity: 45 Refills: 0 Angelo Shanks M.D.* Started ActiveTraMADol HCl - 50 MG Oral Tablet TAKE 1 TABLET BY MOUTH EVERY 4 TO 6 HOURS NEEDED FOR PAIN * Quantity: 30 Refills: 0 Angelo Shanks M.D.* Started ActiveCiprofloxacin HCl - 500 MG Oral Tablet TAKE 1 TABLET BY MOUTH TWICE DAILY FOR 10 DAYS UNTIL ALL TAKEN * Quantity: 20 Refills: 0 Angelo Shanks M.D.* Started ActiveClotrimazole 10 MG Mouth/Throat Lozenge DISSOLVE 1 AUBREY IN MOUTH EVERY 4 HOURS DIRECTED * Quantity: 25 Refills: 0 Angelo Shanks M.D.* Started 13-Aug-2014 ActiveCefuroxime Axetil 500 MG Oral Tablet TAKE 1 TABLET BY MOUTH TWICE DAILY * Quantity: 10 Refills: 5 Angelo Shanks M.D.* Started 29-Jul-2014 ActiveTerbinafine HCl - 250 MG Oral Tablet TAKE 1 TABLET DAILY. * Quantity: 30 Refills: 5 Angelo Shanks M.D.* Started 11-Jul-2014 ActiveHydrocodone-Acetaminophen 10-325 MG Oral Tablet TAKE ONE [...] Completed:18-Jan-2011 History of Hip Replacement History of Gastroscopy With Biopsy Completed:10-Apr-2013 History [...] of Tubal Ligation History of Gallbladder Surgery MRI LUMBAR SPINE Ordered: Immunization Name Dates Details Influenza Administered on:26-Jan-2009 Pneumo (Prevnar) Administered on:06-Mar-2009 Influenza A (H1N1) Monoval Vac Intramuscular Suspension Administered on:14-Mar-2009 Influenza Lot #: [id number] Administered on:18-Feb-2010 Influenza Administered on:11-Feb-2011 Influenza Administered [...]
--- OUTSIDE RECORDS SUMMARY | 2017-06-16 14:13 | XMS REPORT | Summary of Care ---
Author Author Dimitris Alejandra, Tarik Stephens Organization Unknown Address [address] [place], [place] [id number] Phone Unavailable Care Team Providers Care Linux Systems Engineer Name Role Phone Dimitris Alejandra, Tarik [...] Refills: 0 Angelo Randhawa M.D.* Started 04-Jan-2008 ActiveCetirizine HCl - 10 MG Oral Tablet [...] Refills: 11 Angelo Shanks M.D.* Started 30-Mar-2010 ActiveRanitidine HCl - 300 MG Oral Tablet [...] Refills: 2 Angelo Shanks M.D.* Started 30-Jul-2012 ActivePotassium Chloride Misti ER 10 MEQ Oral Tablet Extended Release take 4 tablets by mouth twice daily * Quantity: 240 Refills: 0 Angelo Shanks M.D.* Started 20-Sep-2010 ActiveClopidogrel Bisulfate 75 MG Oral Tablet take 1 tablet by mouth every day * Quantity: 30 Refills: 6 Angelo Randhawa M.D.* Started ActiveNicotine 21-14-7 MG/24HR Transdermal Kit 21 mg ypigrf0ve,14mgx2 wk,2vel7cg * Quantity: 1 Refills: 0 Angelo Shanks M.D.* Started 11-Jul-2014 ActiveTerbinafine HCl - 250 MG Oral Tablet TAKE 1 TABLET DAILY. * Quantity: 30 Refills: 5 Angelo Shanks M.D.* Started 11-Jul-2014 ActivePantoprazole Sodium 40 MG Oral Tablet Delayed Release TAKE 1 TABLET BY MOUTH 30 MINUTES BEFORE BREAKFAST DAILY * Quantity: 30 Refills: Italia Alejandra* Started 08-Aug-2013 ActiveMeloxicam 15 MG [...] Refills: 3 Donnie Blanco M.D.* Started 23-Jul-2013 [id number] GM Tube Ondansetron 4 MG Oral Tablet [...] Dilation Of Esoph (Less Than 30 Mm) Comprehensive Metabolic Panel 1212 Ordered: LIPID PROFILE 1184 Ordered: CBC w/ Auto Diff 7150 Ordered: Immunization Name Dates Details Influenza Administered on:26-Jan-2009 Pneumo (Prevnar) Administered on:06-Mar-2009 Influenza A (H1N1) [place] Intramuscular Suspension Administered on:14-Mar-2009 Influenza Lot #: [id number] Administered on:18-Feb-2010 Influenza Administered on:11-Feb-2011 Influenza Administered [...] not documented On 01-Aug-2013 11:15 Appointment; Merritt October Encounter Diagnosis: Problem not documented On 29-Jul-2013 14:45 Appointment; Merritt Italia Encounter Diagnosis: Problem not documented On 24-Jul-2013 08:30 Appointment; Donnie Blacno Encounter Diagnosis: Problem not documented On 23-Jul-2013 [...]
--- OUTSIDE RECORDS SUMMARY | 2017-06-16 14:13 | XMS REPORT ---
Author Author DELMI BYRNES [facility] [employer] Address Unknown Phone Unavailable Care Team Providers Care Dairy Management Specialist Name Role Phone DELMI BYRNES CP Unavailable Allergies No Known Allergies Problems Problem Type Condition Code Onset Dates Condition Status Problem Depressive disorder, not elsewhere classified F32.9 Active Problem Coronary artery disease involving [place] coronary artery, angina presence unspecified, unspecified whether [place] or transplanted heart I25.10 Active Problem Fibromyalgia M79.7 Active Problem Edema, unspecified type R60.9 Active Problem Hyperlipidemia, unspecified hyperlipidemia type E78.5 Active Problem Barretts esophagus with dysplasia K22.719 Active Problem Arthritis M19.90 Active Problem Anxiety F41.9 Active Medications Medication Code System Code Instructions Start Date End Date Status Dosage Oxycodone HCl [facility] [address]-03 5 mg Orally every 3 hrs as needed Mar 24, 2016 Apr 23, 2016 1 tablet Results No Known Results Summary Purpose eClinicalWorks Submission
--- OUTSIDE RECORDS SUMMARY | 2017-06-16 14:13 | XMS REPORT ---
Author Author DELMI BYRNES [facility] Address [address] [place] [address] Care Team Providers Care Front Man Name Role Phone DELMI BYRNES Unavailable PROBLEMS Type Condition ICD9-CM Code [id number] Code Onset Dates Condition Status SNOMED Code Problem Fibromyalgia M79.7 Active 011036094 Problem Acute gout involving toe of right foot, unspecified cause M10.9 Active 729195505 Problem Edema, unspecified type R60.9 Active 568413879 Problem Lumbar radiculopathy M54.16 Active 062180180 Problem Chronic depression F32.9 Active 211339826 Problem Chronic kidney disease, stage 2 (mild) N18.2 Active 586412210 Problem Constipation, unspecified constipation type K59.00 Active 72026496 Problem Prediabetes R73.03 Active 184416952 Problem Essential hypertension I10 Active 11734541 Problem Anxiety F41.9 Active 49862508 Problem Coronary artery disease involving [place] coronary artery, angina presence unspecified, unspecified whether [place] or transplanted heart I25.10 Active 0090087901268 Problem Depressive disorder, not elsewhere classified F32.9 Active 53931980 Problem Hyperlipidemia, unspecified hyperlipidemia type E78.5 Active 07496594 Problem Arthritis M19.90 Active 9050927 Problem Barretts esophagus with dysplasia K22.719 Active 9844794823288345 ALLERGIES Unknown Allergies SOCIAL HISTORY No smoking Hx information available PLAN OF CARE VITAL SIGNS MEDICATIONS Medication Instructions Dosage Frequency Start Date End Date Duration Status Exelon 4.6 MG/24HR Transdermal Once a day 1 patch to skin 24h Active VESIcare 10 mg Orally Once a day 1 tablet 24h Active Risperdal 1 MG Orally Once a day 1 tablet 24h Active Duloxetine HCl 30 MG Orally twice a day 1 capsule 12h Active Folic Acid 1 MG Orally twice a day 1 tablet 12h Active Cholecalciferol 1000 UNIT Orally Once a day 2 capsules 24h Active Pantoprazole Sodium 40 mg Orally Once a day 1 tablet 24h Active Myrbetriq 50 mg Orally Once a day 1 tablet 24h Active Ranitidine HCl 150 MG Orally twice a day 1 tablet at bedtime 12h Active Atenolol 50 mg Orally twice a day 1 tablet 12h Active RESULTS No Results PROCEDURES No Known procedures IMMUNIZATIONS No Known Immunizations
--- OUTSIDE RECORDS SUMMARY | 2017-06-16 14:13 | XMS REPORT ---
Author Author DELMI BYRNES [facility] [employer] Address Unknown Phone Unavailable Care Team Providers Care Aircraft Engine Specialist Name Role Phone DELMI BYRNES CP Unavailable Allergies No Known Allergies Problems Problem Type Condition Code Onset Dates Condition Status Problem Depressive disorder, not elsewhere classified F32.9 Active Problem Coronary artery disease involving [place] coronary artery, angina presence unspecified, unspecified whether [place] or transplanted heart I25.10 Active Problem Fibromyalgia M79.7 Active Problem Edema, unspecified type R60.9 Active Problem Hyperlipidemia, unspecified hyperlipidemia type E78.5 Active Problem Barretts esophagus with dysplasia K22.719 Active Problem Arthritis M19.90 Active Problem Anxiety F41.9 Active Medications Medication Code System Code Instructions Start Date End Date Status Dosage Tramadol HCl [facility] [address]-12 50 mg Orally every 6 hours as needed Mar 16, 2016 1 or 3 tablet as needed (PT IN [facility]) Results No Known Results Summary Purpose eClinicalWorks Submission
--- OUTSIDE RECORDS SUMMARY | 2017-06-16 14:14 | XMS REPORT ---
Author Author DELMI BYRNES [facility] [employer] Address Unknown Phone Unavailable Care Team Providers Care Auditing Specialist Name Role Phone DELMI BYRNES CP Unavailable Allergies No Known Allergies Problems Problem Type Condition Code Onset Dates Condition Status Problem Depressive disorder, not elsewhere classified F32.9 Active Assessment Arthritis M19.90 Active Problem Coronary artery disease involving [place] coronary artery, angina presence unspecified, unspecified whether [place] or transplanted heart I25.10 Active Problem Fibromyalgia M79.7 Active Problem Edema, unspecified type R60.9 Active Problem Hyperlipidemia, unspecified hyperlipidemia type E78.5 Active Problem Barretts esophagus with dysplasia K22.719 Active Problem Arthritis M19.90 Active Problem Anxiety F41.9 Active Medications Medication Code System Code Instructions Start Date End Date Status Dosage Tramadol HCl [facility] [address]-14 50 mg Orally every 6 hours as needed Mar 16, 2016 1 or 3 tablet as needed (PT IN [facility]) Results No Known Results Summary Purpose eClinicalWorks Submission
--- OUTSIDE RECORDS SUMMARY | 2017-06-16 14:14 | XMS REPORT ---
Author Author DELMI BYRNES Organization [facility] Address [address] [place] [address] Care Team Providers Care Linderman Operator Name Role Phone DELMI BYRNES Unavailable PROBLEMS Type Condition ICD9-CM Code [id number] Code Onset Dates Condition Status SNOMED Code Problem Fibromyalgia M79.7 Active 373102998 Problem Acute gout involving toe of right foot, unspecified cause M10.9 Active 048239271 Problem Edema, unspecified type R60.9 Active 043630193 Problem Lumbar radiculopathy M54.16 Active 432373268 Problem Chronic depression F32.9 Active 493474283 Problem Chronic kidney disease, stage 2 (mild) N18.2 Active 000188208 Problem Constipation, unspecified constipation type K59.00 Active 20325811 Problem Prediabetes R73.03 Active 717068404 Problem Essential hypertension I10 Active 13058067 Problem Anxiety F41.9 Active 67760234 Problem Coronary artery disease involving [place] coronary artery, angina presence unspecified, unspecified whether [place] or transplanted heart I25.10 Active 2547669696848 Problem Depressive disorder, not elsewhere classified F32.9 Active 66122615 Problem Hyperlipidemia, unspecified hyperlipidemia type E78.5 Active 03986739 Problem Arthritis M19.90 Active 6880024 Problem Barretts esophagus with dysplasia K22.719 Active 8073318018204820 ALLERGIES No Information SOCIAL HISTORY Never Assessed [...]
--- OUTSIDE RECORDS SUMMARY | 2017-06-16 14:14 | XMS REPORT | Summary of Care ---
Author Author Dimitris Alejandra, Tarik Stephens Organization Unknown Address [address] [place], [place] [id number] Phone Unavailable Care Team Providers Care Talent Manager Name Role Phone Dimitris Alejandra, Tarik Stephens [...] Status: Active Hyperlipidemia (272.4, E78.5) Status: Active Osteoarthritis (715.90, M19.90) Status: Active Obesity (278.00, E66.9) Status: Active Peripheral neuropathy (356.9, G62.9) Status: Active Reflux esophagitis (530.11, K21.0) Status: Active CVA (cerebral vascular accident) (434.91, I63.9) Status: Active Right sided weakness (728.87, M62.81) Status: Active Dysarthria on examination (784.51, R47.1) Status: Active Low back pain radiating to right leg (724.2, M54.5) Status: Active High risk medication use (V58.69, Z79.899) Status: Active Medications Name Dates Details DULoxetine [...] Refills: 3 Angelo Shanks M.D.* Started 06-Apr-2009 Carxoq14 Tablet Bottle ProAir HFA 108 (90 Base) [...] Refills: 3 Donnie Blanco M.D.* Started 23-Jul-2013 [id number] GM Tube Triamcinolone Acetonide 55 MCG/ACT Nasal [...] Intramuscular Suspension Administered on:14-Mar-2009 Influenza Lot #: [id number] Administered on:18-Feb-2010 Influenza Administered on:11-Feb-2011 Influenza Administered [...] low threshold) Range: >60 EST GFR, NON-AFR IVORIAN 44 ml/min (Below low threshold) Range: >60 Comments: EST GFR is reported in ml/min per 1.73 m2 of body surface area. For -Algerian, please multiple result by 1.2.----- GLUCOSE 96 [...]
[2017-06-16] MEDS ORDERED: MENTHOL TP PRN (14:15)
[2017-06-16] MEDS ORDERED: PHENOL TP PRN (14:15)
[2017-06-16] MEDS ORDERED: FAMOTIDINE 20 MG (PEPCID) TABLET PO PRN (14:15)
[2017-06-16] MEDS ORDERED: ACETAMINOPHEN 325 MG TABLET/CAPLET (TYLENOL) PO PRN (14:15)
[2017-06-16] MEDS ORDERED: TEMAZEPAM 15 MG (RESTORIL) CAP PO PRN (14:15)
[2017-06-16] MEDS ORDERED: CAMPHOR TP PRN (14:15)
--- NOTE | 2017-06-16 14:15 | ST Cognitive Linguistic Eval ---
Speech Evaluation-General Medical Diagnosis Debility Therapy Diagnosis Therapy Diagnosis: Cognitive Linguistic Skills Grossly WNL Referral Referring Physician: Dr. Alexis Gaffney Reason for Referral: Evaluation/Treatment Cognitive Evaluation Speech PLF-Current Status Prior Level of Function The patient denied current challenges with speech or language. Per patient, she has noticed some difficulty with her memory, however, does not believe it interfers with her completion of ADL's ("Oh, it's been happening for awhile, before the hospital, just age.") Subjective The patient was admitted to [facility] with a diagnosis of debility. The patient greeted the clinician appropriately and was agreeable to participation in the cognitive evaluation. Language Eval: Auditory Comprehends Simple Yes/No Ques: Functional Indent/Objects Multiple Medel: Functional Ident/Pics in Multiple Medel: Functional Follows 1-Step Commands: Functional Follows Complex Directions: Functional Follows General Conversations: Functional The patient is slightly hard of hearing. Language Eval: Verbal Language Completes Spontaneous Greeting: Functional Produces Auto, Serial Info: Functional Imitates Simple Words/Phrases: Functional Word Finding: Functional Requests Basic Needs: Functional States Basic Personal Info: Functional Cognitive Patient Orientation The patient was independently oriented to self, location, month, day of week, and year. Objective Cognitive Domain Attention: WNL Memory: Mild Problem Solving: Functional Objective Impression The patient demonstrated cognitive linguistic skills grossly WNL and appropriate for completion of ADL's. Communication/Social Cognition Comprehension: 5 Expression: 5 Social Interaction: 5 Problem Solvin Memory: 5 Speech Patient Assess Expression of Ideas/Wants: Exhibits (3) Understanding Vebal Content: Usually Understands (3) Brief Interview-Mental Status: Yes Repetition of Three Words: Three (3) Temporal Orientation: Year: Correct (3) Temporal Orientation: Month: Accurate within 5 days(2) Temporal Orientation: Day: Correct (1) Recall : Wear to say "Sock": Yes,after cueing (1) Recall : Color: Yes, after cueing (1) Recall : Bed: Yes, no cue required (2) Speech-Plan Treatment Plan Speech Therapy Treatment Plan: Discontinue ST Evaluation, only. Frequency: Modified Program (IRF) Estimated Hrs Per Day: Other Rehab Potential: Guarded Safety Risks/Education Teaching Recipient: Patient Teaching Methods: Discussion Response to Teaching: Verbalize Understanding Education Topics Provided: Results, Recommendations, Plan of Care Time Speech Therapy Time In: 13:47 Speech Therapy Time Out: 14:02 Total Billed Time: 15 Billed Treatment Time 1, SCOTTY PEDERSON Jun 16, 2017 14:15
--- OUTSIDE RECORDS SUMMARY | 2017-06-16 14:15 | XMS REPORT | Summary of Care ---
Author Author Tarik Shanks M.D. Organization Unknown Address [address] [place], [place] [id number] Phone Unavailable Care Team Providers Care Skin Grader Name Role Phone Dimitris Alejandra, Tarik Stephens [...] Status: Active Dysuria (788.1, R30.0) Status: Active Medications Name Dates Details DULoxetine [...] ActiveNicotine 21-14-7 MG/24HR Transdermal Kit 21 mg dgouke9jg,14mgx2 wk,3ver9ax * Quantity: 1 Refills: 0 Angelo Shanks [...] Refills: 3 Donnie Blanco M.D.* Started 23-Jul-2013 [id number] GM Tube Ondansetron 4 MG Oral Tablet [...] Reflex to Microscopic or Culture PRN [id number] Ordered:18-Sep-2014 Immunization Name Dates Details Influenza Administered on:26-Jan-2009 Pneumo (Prevnar) Administered on:06-Mar-2009 Influenza A (H1N1) Monoval Vac Intramuscular Suspension Administered on:14-Mar-2009 Influenza Lot #: [id number] Administered on:18-Feb-2010 Influenza Administered on:11-Feb-2011 Influenza Administered [...]
--- OUTSIDE RECORDS SUMMARY | 2017-06-16 14:16 | XMS REPORT | Summary of Care ---
Author Author Bella Alejandra, Donnie Jones Unknown Address Unknown Phone Unavailable Care Team Providers Care Health Therapist Name Role Phone Dimitris Alejandra, Tarik Stephens [...] Refills: 3 Angelo Shanks M.D.* Started 06-Apr-2009 [id number] Tablet Bottle ProAir HFA 108 (90 Base) [...] THREE TIMES DAILY * Quantity: 90 Refills: carol Italia Justyn* Started 18-Jan-2011 ActiveHydrocodone-Acetaminophen 10-325 MG Oral Tablet [...] Refills: 3 Donnie Blanco M.D.* Started 23-Jul-2013 [id number] GM Tube Pantoprazole Sodium 40 MG Oral Tablet Delayed Release TAKE 1 TABLET BY MOUTH 30 MINUTES BEFORE BREAKFAST DAILY * Quantity: 30 Refills: Italia Bang M.D.* Started 08-Aug-2013 ActiveTriamcinolone Acetonide 55 MCG/ACT Nasal Aerosol USE ONE SPRAY IN EACH NOSTRIL EVERY DAY * Quantity: 16.5 Refills: 0 Angelo Shanks M.D.* Started 19-May-2014 ActiveAtorvastatin Calcium 80 MG Oral Tablet TAKE 1 TABLET BY MOUTH EVERY NIGHT AT BEDTIME * Quantity: 30 Refills: 6 Angelo Rnadhawa M.D.* Started 23-Jan-2014 ActiveCefuroxime Axetil 500 MG Oral Tablet TAKE 1 TABLET BY MOUTH TWICE DAILY * Quantity: 10 Refills: 5 Angelo Shanks M.D.* Started 29-Jul-2014 ActivePhentermine HCl - 37.5 MG Oral Tablet TAKE 1 TABLET BY MOUTH DAILY FOR APPETITE SUPPRESSION * Quantity: 30 Refills: 0 Angelo Shanks M.D.* Started 23-Jul-2013 ActiveOndansetron 4 MG Oral Tablet Dispersible DISSOLVE 1 TABLET BY MOUTH EVERY 6 HOURS NEEDED FOR NAUSEA. MUST LAST 10 DAYS. * Quantity: 20 Refills: 0 Angelo Shanks M.D.* Started 15-Apr-2014 ActiveCiprofloxacin HCl - 500 MG Oral Tablet TAKE 1 TABLET BY MOUTH TWICE DAILY FOR 10 DAYS UNTIL ALL TAKEN * Quantity: 20 Refills: 0 Angelo Shanks M.D.* Started ActiveLyrica [...] Started 27-Mar-2015 Active0.4 ML Package (2 Packages) Allergies and Adverse Reactions Name Dates Details [...] to Microscopic or Culture PRN [id number] Ordered:26-Mar-2015 CT HEAD WITHOUT AND WITH IV CONTRAST Ordered:26-Mar-2015 Immunization Name Dates Details Influenza Administered on:26-Jan-2009 Pneumo (Prevnar) Administered on:06-Mar-2009 Influenza A (H1N1) Monoval Vac Intramuscular Suspension Administered on:14-Mar-2009 Influenza Lot #: [id number] Administered on:18-Feb-2010 Influenza Administered on:11-Feb-2011 Influenza Administered [...] smoker Vital Signs Date Test Result Details 27-Mar-2015 14:51 BP Systolic 110 mm[Hg] Status: [...] low threshold) Range: >60 EST GFR, NON-AFR BAHRAINI 44 ml/min (Below low threshold) Range: >60 Comments: EST GFR is reported in ml/min per 1.73 m2 of body surface area. For -Libyan, please multiple result by 1.2.----- GLUCOSE 96 [...]
--- OUTSIDE RECORDS SUMMARY | 2017-06-16 14:17 | XMS REPORT | Summary of Care ---
Author Author Dimitris Alejandra, Tarik Stephens Organization Unknown Address [address] [place], [place] [id number] Phone Unavailable Care Team Providers Care Tow Truck Operator Name Role Phone Dimitris Alejandra, Tarik [...] Status: Active Fibromyalgia (729.1, M79.7) Status: Active Low back pain radiating to [...] Dysarthria on examination (784.51, R47.1) Status: Active Medications Name Dates Details DULoxetine [...] Refills: 3 Angelo Shanks M.D.* Started 06-Apr-2009 Ohzvuw78 Tablet Bottle ProAir HFA 108 (90 Base) [...] TIMES DAILY * Quantity: 90 Refills: 11 Merritt Italia Justyn* Started 18-Jan-2011 ActiveHydrocodone-Acetaminophen 10-325 MG [...] Refills: 3 Donnie Blanco M.D.* Started 23-Jul-2013 [id number] GM Tube Phentermine HCl - 37.5 MG Oral Tablet TAKE 1 TABLET BY MOUTH DAILY FOR APPETITE SUPPRESSION * Quantity: 30 Refills: 0 Angelo Shanks M.D.* Started 23-Jul-2013 ActivePantoprazole Sodium 40 MG Oral Tablet Delayed Release TAKE 1 TABLET BY MOUTH 30 MINUTES BEFORE BREAKFAST DAILY * Quantity: 30 Refills: Italia Bang M.D.* Started 08-Aug-2013 ActiveMeloxicam 15 MG Oral Tablet TAKE 1 TABLET BY MOUTH EVERY DAY WITH FOOD * Quantity: 30 Refills: 3 Donnie Blanco M.D.* Started 19-Aug-2013 ActiveTriamcinolone Acetonide 55 MCG/ACT Nasal Aerosol USE [...] Refills: 5 Angelo Shanks M.D.* Started 29-Jul-2014 ActiveOndansetron 4 MG Oral Tablet Dispersible DISSOLVE [...] 45 Refills: 5 Angelo Shanks M.D.* Started ActiveCyclobenzaprine HCl - 10 MG Oral Tablet [...] Refills: 0 Angelo Shanks M.D.* Started 13-Aug-2014 Active Allergies and Adverse Reactions Name Dates [...] to Microscopic or Culture PRN [id number] Ordered:26-Mar-2015 Comprehensive Metabolic Panel 1212 Ordered:26-Mar-2015 CT HEAD WITHOUT AND WITH IV CONTRAST Ordered:26-Mar-2015 Immunization Name Dates Details Influenza Administered on:26-Jan-2009 Pneumo (Prevnar) Administered on:06-Mar-2009 Influenza A (H1N1) Monoval Vac Intramuscular Suspension Administered on:14-Mar-2009 Influenza Lot #: [id number] Administered on:18-Feb-2010 Influenza Administered on:11-Feb-2011 Influenza Administered [...] smoker Vital Signs Date Test Result Details 26-Mar-2015 10:37 BP Systolic 110 mm[Hg] Status: [...] 0.0-0.7 BASO 0.0 K/uL (Better) Range: 0.0-0.2 Plan of Care Planned Observations* Name Dates [...] Problem not documented On 15-Apr-2013 16:15 Appointment; Merritt Italia Encounter Diagnosis: Problem not documented On 10-Apr-2013 10:00 Appointment; Joel Montalvo Encounter Diagnosis: Problem not documented On 10-Apr-2013 07:45 Appointment; Angelo Shanks Encounter Diagnosis: Problem not documented On 29-Mar-2013 15:15 Appointment; Priscila Boone Encounter Diagnosis: Problem not documented On 29-Mar-2013 11:15 Appointment; Ray Geiger Encounter Diagnosis: Problem not documented On 29-Mar-2013 09:00
--- OUTSIDE RECORDS SUMMARY | 2017-06-16 14:17 | XMS REPORT ---
Author Author DELMI BYRNES Organization [facility] [place] Address [address] [place] [address] Care Team Providers Care Senior Payroll Specialist Name Role Phone DELMI BYRNES Unavailable PROBLEMS Type Condition ICD9-CM Code [id number] Code Onset Dates Condition Status SNOMED Code Problem Fibromyalgia M79.7 Active 264613145 Problem Acute gout involving toe of right foot, unspecified cause M10.9 Active 482900163 Problem Edema, unspecified type R60.9 Active 136528209 Problem Lumbar radiculopathy M54.16 Active 773408626 Problem Chronic depression F32.9 Active 584337846 Problem Chronic kidney disease, stage 2 (mild) N18.2 Active 050495208 Problem Constipation, unspecified constipation type K59.00 Active 75828771 Problem Prediabetes R73.03 Active 398087396 Problem Essential hypertension I10 Active 38399938 Problem Anxiety F41.9 Active 38067097 Problem Coronary artery disease involving [place] coronary artery, angina presence unspecified, unspecified whether [place] or transplanted heart I25.10 Active 4264299787737 Problem Depressive disorder, not elsewhere classified F32.9 Active 97648993 Problem Hyperlipidemia, unspecified hyperlipidemia type E78.5 Active 52815575 Problem Arthritis M19.90 Active 2370735 Problem Barretts esophagus with dysplasia K22.719 Active 7980097040053326 ALLERGIES No Information SOCIAL HISTORY Never Assessed [...]
--- OUTSIDE RECORDS SUMMARY | 2017-06-16 14:17 | XMS REPORT | Summary of Care ---
Author Author Dimitris Alejandra, Tarik Stephens Organization Unknown Address [address] [place], [place] [id number] Phone Unavailable Care Team Providers Care Water Ski Assembler Name Role Phone Dimitris Alejandra, Tarik Stephens [...] Status: Active Rash (782.1, R21) Status: Active Medications Name Dates Details DULoxetine [...] Refills: 0 Donnie Blanco M.D.* Started 13-Jun-2013 ActiveNicotine 21-14-7 MG/24HR Transdermal Kit 21 mg iorwxr9zb,14mgx2 wk,8zbj2mn * Quantity: 1 Refills: 0 Angelo Shanks [...] BREAKFAST DAILY * Quantity: 30 Refills: 11 Merritt Italia Justyn* Started 08-Aug-2013 ActiveMeloxicam 15 MG [...] Refills: 3 Donnie Blanco M.D.* Started 23-Jul-2013 [id number] GM Tube Ondansetron 4 MG Oral Tablet [...] Refills: 0 Angelo Shanks M.D.* Started 23-Jul-2013 Active Allergies and Adverse Reactions Name Dates [...] Intramuscular Suspension Administered on:14-Mar-2009 Influenza Lot #: [id number] Administered on:18-Feb-2010 Influenza Administered on:11-Feb-2011 Influenza Administered [...]
--- OUTSIDE RECORDS SUMMARY | 2017-06-16 14:18 | XMS REPORT ---
Author Author DELMI BYRNES [facility] Address [address] [place] [address] Care Team Providers Care Refrigerator Repairman Name Role Phone DELMI BYRNES Unavailable PROBLEMS Type Condition ICD9-CM Code [id number] Code Onset Dates Condition Status SNOMED Code Problem Barretts esophagus with dysplasia K22.719 Active 4482515731690414 Problem Depressive disorder, not elsewhere classified F32.9 Active 72385510 Problem Edema, unspecified type R60.9 Active 118856344 Problem Coronary artery disease involving [place] coronary artery, angina presence unspecified, unspecified whether [place] or transplanted heart I25.10 Active 5555552377452 Problem Anxiety F41.9 Active 51927489 Problem Hyperlipidemia, unspecified hyperlipidemia type E78.5 Active 26155070 Problem Fibromyalgia M79.7 Active 770011796 Problem Arthritis M19.90 Active 3986618 ALLERGIES Unknown Allergies SOCIAL HISTORY No smoking Hx information available PLAN OF CARE VITAL SIGNS MEDICATIONS Unknown Medications RESULTS No Results PROCEDURES No Known procedures IMMUNIZATIONS No Known Immunizations
--- OUTSIDE RECORDS SUMMARY | 2017-06-16 14:18 | XMS REPORT ---
Author Author DELMI BYRNES [facility] Address [address] [place] [address] Care Team Providers Care Dulser Name Role Phone DELMI BYRNES Unavailable PROBLEMS Type Condition ICD9-CM Code [id number] Code Onset Dates Condition Status SNOMED Code Problem Coronary artery disease involving hop[place] coronary artery, angina presence unspecified, unspecified whether hopi or transplanted heart I25.10 Active 1289069188723 Problem Acute gout involving toe of right foot, unspecified cause M10.9 Active 544443316 Problem Edema, unspecified type R60.9 Active 221142641 Problem Lumbar radiculopathy M54.16 Active 163493611 Problem Chronic depression F32.9 Active 556928879 Problem Chronic kidney disease, stage 2 (mild) N18.2 Active 776466616 Problem Constipation, unspecified constipation type K59.00 Active 68923828 Problem Prediabetes R73.03 Active 658639220 Problem Essential hypertension I10 Active 93770066 Problem Hyperlipidemia, unspecified hyperlipidemia type E78.5 Active 57118753 Problem Anxiety F41.9 Active 01028744 Problem Depressive disorder, not elsewhere classified F32.9 Active 37487721 Problem Arthritis M19.90 Active 3395186 Problem Barretts esophagus with dysplasia K22.719 Active 2635402785482621 Problem Fibromyalgia M79.7 Active 797620504 ALLERGIES Substance Reaction Event Type Date Status Milk Unknown Non Drug Allergy Apr, Active Eggs Unknown Non Drug Allergy Apr, Active SOCIAL HISTORY No smoking Hx information available PLAN OF CARE Activity Details Follow Up prn Reason: VITAL SIGNS Height 67 in 2016-05-12 Weight 257.9 lbs 2016-05-12 Temperature 98.0 degrees Fahrenheit 2016-05-12 Heart Rate 80 bpm 2016-05-12 Respiratory Rate 22 2016-05-12 Oximetry 96 % 2016-05-12 BMI 40.39 kg/m2 2016-05-12 Blood pressure systolic 133 mmHg 2016-05-12 Blood pressure diastolic 77 mmHg 2016-05-12 MEDICATIONS Medication Instructions Dosage Frequency Start Date End Date Duration Status Triamcinolone Acetonide 0.1 % Externally Twice a day 1 application to affected area 12h Active Duloxetine HCl 30 MG Orally twice a day 1 capsule 12h Active Aspirin 325 MG Orally Once a day 1 tablet 24h Active Risperdal 1 MG Orally Once a day 1 tablet 24h Active Exelon 4.6 MG/24HR Transdermal Once a day 1 patch to skin 24h Active Myrbetriq 50 MG Orally Once a day 1 tablet 24h Active Atenolol 50 mg Orally twice a day 1 tablet 12h Active Alprazolam 1 MG Orally Once a day 1 tablet 24h Active Zyrtec Allergy 10 MG Orally Once a day 1 tablet 24h Active Folic Acid 1 MG Orally twice a day 1 tablet 12h Active Imodium A-D 2 MG Orally 8 time(s) a day 1 tablet Active Multivitamin Adult - Active Ranitidine HCl 150 MG Orally twice a day 1 tablet at bedtime 12h Active Lyrica 150 MG Orally 3 times a day 1 capsule 8h 28 days Active VESIcare 10 MG Orally Once a day 1 tablet 24h Active Loratadine 10 MG Orally Once a day 1 tablet 24h Active Colace 100 MG Orally Once a day 1 capsule as needed 24h Active Cholecalciferol 1000 UNIT Orally Once a day 2 capsules 24h Active Pantoprazole Sodium 40 MG Orally Once a day 1 tablet 24h Active Tramadol HCl 50 mg Orally every 6 hrs 1 tablet as needed 6h May, 30 days Active RESULTS Name Result Date Reference Range [facility] 2016-05-12 Glucose, Serum 131 65-99 BUN 20 8-27 Creatinine, Serum 1.12 0.57-1.00 eGFR If NonAfricn Am 53 >59 eGFR If Africn Am 61 >59 BUN/Creatinine Ratio 18 11-26 Sodium, Serum 140 134-144 Potassium, Serum 4.2 3.5-5.2 Chloride, Serum 103 96-106 Carbon Dioxide, Total 23 18-29 Calcium, Serum 9.4 8.7-10.3 PROCEDURES Procedure Date Ordered Related Diagnosis Body Site MEASURE BLOOD OXYGEN LEVEL May 12, 2016 LAB NOT BILLED BY [facility] May 12, 2016 VENIPUNCT, ROUTINE* May 12, 2016 Office Visit, Est Pt., Level 3 May 12, 2016 IMMUNIZATIONS No Known Immunizations
--- OUTSIDE RECORDS SUMMARY | 2017-06-16 14:18 | XMS REPORT ---
Author Author DELMI BYRNES [facility] [employer] Address Unknown Phone Unavailable Care Team Providers Care Vender Name Role Phone DELMI BYRNES CP Unavailable Allergies No Known Allergies Problems Problem Type Condition Code Onset Dates Condition Status Problem Fibromyalgia M79.7 Active Problem Arthritis M19.90 Active Problem Coronary artery disease involving [place] coronary artery, angina presence unspecified, unspecified whether [place] or transplanted heart I25.10 Active Problem Barretts esophagus with dysplasia K22.719 Active Problem Depressive disorder, not elsewhere classified F32.9 Active Problem Anxiety F41.9 Active Problem Hyperlipidemia, unspecified hyperlipidemia type E78.5 Active Medications No Known Medications Results No Known Results Summary Purpose [employer] Submission
--- OUTSIDE RECORDS SUMMARY | 2017-06-16 14:18 | XMS REPORT ---
Author Author GAYATRI BURR Organization [employer] Address Unknown Phone Unavailable Care Team Providers Care Auriculotherapist Name Role Phone GAYATRI BURR CP Unavailable Allergies No Known Allergies Problems Problem Type Condition Code Onset Dates Condition Status Assessment Depressive disorder, not elsewhere classified F32.9 Active Assessment Anxiety F41.9 Active Problem Fibromyalgia M79.7 Active Problem Arthritis M19.90 Active Problem Coronary artery disease involving [place] coronary artery, angina presence unspecified, unspecified whether [place] or transplanted heart I25.10 Active Problem Barretts esophagus with dysplasia K22.719 Active Problem Depressive disorder, not elsewhere classified F32.9 Active Problem Anxiety F41.9 Active Problem Hyperlipidemia, unspecified hyperlipidemia type E78.5 Active Medications No Known Medications Procedures Procedure Coding System Code Date Psychotherapy, patient &/family, 30 minutes, established patient CPT-4 66091 November 30, 2015 Results No Known Results Summary Purpose [facility] Sub[facility]
--- OUTSIDE RECORDS SUMMARY | 2017-06-16 14:18 | XMS REPORT ---
Author Author DELMI BYRNES Organization [facility] Address [address] [place] [address] Care Team Providers Care Confidential Investigator Name Role Phone DELMI BYRNES Unavailable PROBLEMS Type Condition ICD9-CM Code [id number] Code Onset Dates Condition Status SNOMED Code Problem Coronary artery disease involving [place] coronary artery, angina presence unspecified, unspecified whether [place] or transplanted heart I25.10 Active 3575848417454 Problem Acute gout involving toe of right foot, unspecified cause M10.9 Active 663453931 Problem Edema, unspecified type R60.9 Active 124684944 Problem Lumbar radiculopathy M54.16 Active 305392626 Problem Chronic depression F32.9 Active 768308062 Problem Chronic kidney disease, stage 2 (mild) N18.2 Active 358787627 Problem Constipation, unspecified constipation type K59.00 Active 67326490 Problem Prediabetes R73.03 Active 077272992 Problem Essential hypertension I10 Active 22629859 Problem Hyperlipidemia, unspecified hyperlipidemia type E78.5 Active 53516266 Problem Anxiety F41.9 Active 51653026 Problem Depressive disorder, not elsewhere classified F32.9 Active 92539684 Problem Arthritis M19.90 Active 7826545 Problem Barretts esophagus with dysplasia K22.719 Active 2154807709346677 Problem Fibromyalgia M79.7 Active 807010945 ALLERGIES Unknown Allergies SOCIAL HISTORY No smoking Hx information available PLAN OF CARE VITAL SIGNS MEDICATIONS Medication Instructions Dosage Frequency Start Date End Date Duration Status Tramadol HCl 50 mg Orally every 6 hrs 1 tablet as needed 6h May, 30 days Active RESULTS No Results PROCEDURES No Known procedures IMMUNIZATIONS No Known Immunizations
--- OUTSIDE RECORDS SUMMARY | 2017-06-16 14:18 | XMS REPORT | Summary of Care ---
Author Author Dimitris Alejandra, Tarik Stephens Organization Unknown Address [address] [place], [place] [address] Phone Unavailable Care Team Providers Care Welding Supervisor Name Role Phone Dimitris Alejandra, Tarik Stephens [...] Status: Active Anxiety (300.00, F41.1) Status: Active CAD (coronary atherosclerotic disease) (414.00, [...] Refills: 3 Donnie Blanco M.D.* Started 23-Jul-2013 Eirstm675 GM Tube Ondansetron 4 MG Oral Tablet [...] Intramuscular Suspension Administered on:14-Mar-2009 Influenza Lot #: [id number] Administered on:18-Feb-2010 Influenza Administered on:11-Feb-2011 Influenza Administered [...] low threshold) Range: >60 EST GFR, NON-AFR [place] 25 ml/min (Below low threshold) Range: >60 Comments: EST GFR is reported in ml/min per 1.73 m2 of body surface area. For -Djiboutian, please multiple result by 1.2.----- GLUCOSE 108 [...]
--- OUTSIDE RECORDS SUMMARY | 2017-06-16 14:19 | XMS REPORT ---
Author Author DELMI BYRNES [facility] Address [address] [place] [address] Care Team Providers Care Industrial Editor Name Role Phone DELMI BYRNES Unavailable PROBLEMS Type Condition ICD9-CM Code [id number] Code Onset Dates Condition Status SNOMED Code Problem Fibromyalgia M79.7 Active 318352083 Problem Acute gout involving toe of right foot, unspecified cause M10.9 Active 986656724 Problem Edema, unspecified type R60.9 Active 099616588 Problem Lumbar radiculopathy M54.16 Active 740783023 Problem Chronic depression F32.9 Active 763425426 Problem Chronic kidney disease, stage 2 (mild) N18.2 Active 625831486 Problem Constipation, unspecified constipation type K59.00 Active 73940239 Problem Prediabetes R73.03 Active 396130415 Problem Essential hypertension I10 Active 11439306 Problem Anxiety F41.9 Active 34997796 Problem Coronary artery disease involving [place] coronary artery, angina presence unspecified, unspecified whether [place] or transplanted heart I25.10 Active 6780870858628 Problem Depressive disorder, not elsewhere classified F32.9 Active 29921137 Problem Hyperlipidemia, unspecified hyperlipidemia type E78.5 Active 27405171 Problem Arthritis M19.90 Active 5980626 Problem Barretts esophagus with dysplasia K22.719 Active 3026625960006513 ALLERGIES Substance Reaction Event Type Date Status Milk Unknown Non Drug Allergy Jun, Active Eggs Unknown Non Drug Allergy Jun, Active SOCIAL HISTORY Never Assessed PLAN OF CARE Activity Details Follow Up 4 Weeks Reason: VITAL SIGNS Height 67 in 2016-06-24 Weight 245.0 lbs 2016-06-24 Temperature 97.9 degrees Fahrenheit 2016-06-24 Heart Rate 72 bpm 2016-06-24 Respiratory Rate 20 2016-06-24 Oximetry 96 % 2016-06-24 BMI 38.37 kg/m2 2016-06-24 Blood pressure systolic 169 mmHg 2016-06-24 Blood pressure diastolic 85 mmHg 2016-06-24 MEDICATIONS Medication Instructions Dosage Frequency Start Date End Date Duration Status Lyrica 150 MG Orally 3 times a day 1 capsule 8h 28 days Active Duloxetine HCl 30 MG Orally 3 times a day 1 capsule 8h Active Cholecalciferol 1000 UNIT Orally Once a day 2 capsules 24h Active Aspirin 325 MG Orally Once a day 1 tablet 24h Active Colace 100 MG Orally Once a day 1 capsule as needed 24h Active Atenolol 50 mg Orally twice a day 1 tablet 12h Active Alprazolam 1 MG Orally Once a day, hs 1 tablet Active Folic Acid 1 MG Orally twice a day 1 tablet 12h Active VESIcare 10 mg Orally Once a day 1 tablet 24h Active Oxycodone HCl 5 MG Orally every 6 hrs 1 tablet 6h Active Ranitidine HCl 150 MG Orally twice a day 1 tablet at bedtime 12h Active Pantoprazole Sodium 40 mg Orally Once a day 1 tablet 24h Active Multivitamin Adult - Active Adjust Bath/Shower Seat/Back - use in shower Jun, Active Imodium A-D 2 MG Orally 8 time(s) a day 1 tablet Active Zyrtec Allergy 10 MG Orally Once a day 1 tablet 24h Active Risperdal 1 MG Orally Once a day 1 tablet 24h Active Myrbetriq 50 mg Orally Once a day 1 tablet 24h Active Triamcinolone Acetonide 0.1 % Externally Twice a day 1 application to affected area 12h Active Exelon 4.6 MG/24HR Transdermal Once a day 1 patch to skin 24h Active RESULTS No Results PROCEDURES Procedure Date Ordered Result Body Site MEASURE BLOOD OXYGEN LEVEL Jun 24, 2016 IMMUNIZATIONS No Known Immunizations MEDICAL (GENERAL) [...]
--- OUTSIDE RECORDS SUMMARY | 2017-06-16 14:19 | XMS REPORT | Summary of Care ---
Author Author Jesus Alberto Denton Organization Unknown Address [address] [place], [place] [id number] Phone Unavailable Care Team Providers Care Roofing Technician Name Role Phone Dimitris Alejandra, Tarik [...] Active Renal insufficiency (593.9, N28.9) Status: Active UTI (lower urinary tract infection) (599.0, N39.0) Status: Active Hearing loss, sensorineural (389.10, H90.5) Status: Active Medications Name Dates Details DULoxetine [...] every day * Quantity: 30 Refills: 5 Angeol Shanks M.D.* Started 13-Jul-2009 ActiveFurosemide 80 MG [...] Refills: 3 Donnie Blanco M.D.* Started 23-Jul-2013 [id number] GM Tube Ondansetron 4 MG Oral Tablet [...] Refills: 0 Donnie Blanco M.D.* Started 13-Jun-2013 ActiveTraMADol HCl - 50 MG Oral Tablet TAKE 1 TABLET EVERY 4 TO 6 HOURS NEEDED FOR PAIN. * Quantity: 30 Refills: 0 Angelo Shanks M.D.* Started Ended ActiveCiprofloxacin HCl - 500 MG Oral Tablet 1 tab bid x 10 days * Quantity: 20 Refills: 0 Angelo Shanks M.D.* Started Active Allergies and Adverse Reactions Name Dates [...] Intramuscular Suspension Administered on:14-Mar-2009 Influenza Lot #: [id number] Administered on:18-Feb-2010 Influenza Administered on:11-Feb-2011 Influenza Administered [...] low threshold) Range: >60 EST GFR, NON-AFR ARGENTINE 25 ml/min (Below low threshold) Range: >60 Comments: EST GFR is reported in ml/min per 1.73 m2 of body surface area. For -[place], please multiple result by 1.2.----- GLUCOSE 108 [...] Joel Montalvo On 08:30 * Appointment; Provider: Angelo Randhawa On 31-Jan-2011 09:30 * Appointment; Provider: Angelo Randhawa On 22-Jan-2008 13:00 * Appointment; Provider: Angelo Randhawa On 11:00 * Appointment; Provider: Angelo Randhawa On 08-Oct-2007 08:00 * Appointment; Provider: Angelo Shanks On 14-Sep-2007 08:45 Instructions * Instructions not documented Encounters Appointment; Malik Denton Encounter Diagnosis: Problem not [...]
--- OUTSIDE RECORDS SUMMARY | 2017-06-16 14:20 | XMS REPORT ---
Author Author DELMI BYRNES [facility] Address [address] [place] [address] Care Team Providers Care Spinner Iron Name Role Phone DELMI BYRNES Unavailable PROBLEMS Type Condition ICD9-CM Code [id number] Code Onset Dates Condition Status SNOMED Code Problem Fibromyalgia M79.7 Active 561069491 Problem Acute gout involving toe of right foot, unspecified cause M10.9 Active 522228996 Problem Edema, unspecified type R60.9 Active 119211794 Problem Lumbar radiculopathy M54.16 Active 761099272 Problem Chronic depression F32.9 Active 147802738 Problem Chronic kidney disease, stage 2 (mild) N18.2 Active 353854348 Problem Constipation, unspecified constipation type K59.00 Active 74471277 Problem Prediabetes R73.03 Active 744131284 Problem Essential hypertension I10 Active 19761638 Problem Anxiety F41.9 Active 93734316 Problem Coronary artery disease involving [place] coronary artery, angina presence unspecified, unspecified whether [place] or transplanted heart I25.10 Active 4353273196538 Problem Depressive disorder, not elsewhere classified F32.9 Active 82009478 Problem Hyperlipidemia, unspecified hyperlipidemia type E78.5 Active 48747979 Problem Arthritis M19.90 Active 7343271 Problem Barretts esophagus with dysplasia K22.719 Active [id number] ALLERGIES No Information SOCIAL HISTORY Never Assessed [...]
--- OUTSIDE RECORDS SUMMARY | 2017-06-16 14:20 | XMS REPORT | Summary of Care ---
Author Author Dimitris Alejandra, Tarik Stephens Organization Unknown Address [address] [place], [place] [address] Phone Unavailable Care Team Providers Care Photographic Equipment Assembler Name Role Phone Dimitris Alejandra, Tarik [...] Right sided weakness (728.87, M62.81) Status: Active Medications Name Dates Details DULoxetine HCl - 60 MG Oral Capsule Delayed Release Particles TAKE 2 CAPSULES BY MOUTH EVERY DAY-fill on 03/10/15 Quantity: 60 Angelo Shakns M.D.* Started 13-Jul-2009 ActiveSingulair 10 MG Oral [...] Refills: 3 Angelo Shanks M.D.* Started 06-Apr-2009 [id number] Tablet Bottle ProAir HFA 108 (90 Base) [...] DAILY * Quantity: 90 Refills: 11 Italia Bang.D.* Started 18-Jan-2011 ActiveHydrocodone-Acetaminophen 10-325 MG Oral Tablet [...] 12/17/14* * Quantity: 60 Refills: 0 Donnie Blanoc M.D.* Started 13-Jun-2013 ActiveVoltaren 1 % Transdermal Gel APPLY TO AREA, 4 GM OF GEL TO AFFECTED AREA TWICE DAILY. DO NOT APPLY MORE THAN 16 GM DAILY TO ANY ONE AFFECTED JOINT. * Quantity: 1 Refills: 3 Donnie Blanco M.D.* Started 23-Jul-2013 [id number] GM Tube Phentermine HCl - 37.5 MG Oral Tablet TAKE 1 TABLET BY MOUTH DAILY FOR APPETITE SUPPRESSION * Quantity: 30 Refills: 0 Angelo Shanks M.D.* Started 23-Jul-2013 ActivePantoprazole Sodium 40 MG Oral Tablet Delayed Release TAKE 1 TABLET BY MOUTH 30 MINUTES BEFORE BREAKFAST DAILY * Quantity: 30 Refills: Italia medina M.D.* Started 08-Aug-2013 ActiveMeloxicam 15 MG Oral [...] Dilation Of Esoph (Less Than 30 Mm) CT HEAD WITHOUT AND WITH IV CONTRAST Ordered:26-Mar-2015 Immunization Name Dates Details Influenza Administered on:26-Jan-2009 Pneumo (Prevnar) Administered on:06-Mar-2009 Influenza A (H1N1) Monoval Vac Intramuscular Suspension Administered on:14-Mar-2009 Influenza Lot #: [id number] Administered on:18-Feb-2010 Influenza Administered on:11-Feb-2011 Influenza Administered [...]
--- OUTSIDE RECORDS SUMMARY | 2017-06-16 14:20 | XMS REPORT ---
Author Author ELIZABETH SALVADOR [facility] [employer] Address Unknown Phone Unavailable Care Team Providers Care Director Of Development Name Role Phone ELIZABETH SALVADOR Unavailable Allergies No Known Allergies Problems Problem Type Condition Code Onset Dates Condition Status Assessment Dementia without behavioral disturbance, unspecified dementia type F03.90 Active Assessment Reactive depression F32.9 Active Problem Fibromyalgia M79.7 Active Problem Arthritis M19.90 Active Problem Coronary artery disease involving [place] coronary artery, angina presence unspecified, unspecified whether [place] or transplanted heart I25.10 Active Problem Barretts esophagus with dysplasia K22.719 Active Problem Depressive disorder, not elsewhere classified F32.9 Active Problem Anxiety F41.9 Active Problem Hyperlipidemia, unspecified hyperlipidemia type E78.5 Active Medications Medication Code System Code Instructions Start Date End Date Status Dosage Atenolol [facility] [address]-91 50 MG Orally Once a day 1 tablet Duloxetine HCl [facility] [address]-36 60 MG Orally Once a day 1 capsule Lisinopril [facility] [address]-90 10 MG Orally Once a day 1 tablet Ranitidine HCl [facility] [address]-27 300 MG Orally Once a day 1 tablet at bedtime Loratadine [facility] [address]-36 10 MG Orally Once a day 1 tablet OxyContin [facility] [address]-57 20 mg Orally every 12 hrs 1 tablet Lyrica [facility] [address]-56 150 MG Orally t i d 1 capsule Atorvastatin Calcium [facility] [address]-56 80 MG Orally Once a day 1 tablet Clobetasol Propionate [facility] [address]-81 0.05 % Externally Twice a day 1 application to affected area Hydrocodone-Acetaminophen [facility] [address]-84 5-325 MG Orally every 6 hrs, prn pain 1 tablet as needed ProAir HFA [facility] [address]-47 108 (90 Base) MCG/ACT Inhalation every 4 hrs 2 puffs as needed Gabapentin [facility] [address]-56 300 MG Orally Three times a day 1 capsule Alprazolam [facility] [address]-57 1 MG Orally qd prn anxiety 1 tablet Zetia [facility] [address]-43 10 MG Orally Once a day 1 tablet VESIcare [facility] [address]-71 10 MG Orally Once a day 1 tablet Clopidogrel Bisulfate [facility] [address]-67 75 MG Orally Once a day 1 tablet Zyrtec Allergy [facility] [address]-82 10 MG Orally Once a day 1 tablet Tramadol HCl [facility] [address]-90 50 MG Orally every 6 hrs 1 tablet as needed Topiramate [facility] [address]-90 50 MG Orally Twice a day 1 tablet Terbinafine HCl [facility] [address]-73 250 MG Orally Once a day 1 tablet Pantoprazole Sodium [facility] [address]-77 40 MG Orally Once a day 1 tablet Triamcinolone Acetonide [facility] [address]-56 0.1 % Externally Twice a day 1 application to affected area Procedures Procedure Coding System Code Date Psych diagnostic evaluation, new patient CPT-4 90857 Dec 31, 2015 Results No Known Results Summary Purpose eClinicalWorks Submission
--- OUTSIDE RECORDS SUMMARY | 2017-06-16 14:21 | XMS REPORT | Continuity of Care Document ---
Author Author [facility] Organization [facility] Address Unknown Phone Unavailable Allergies Active Description Code Type Severity Reaction Onset Reported/Identified Relationship to Patient Clinical Status Yes eggs Food Allergy N/A N/A Yes lactose intolerent Food Allergy N/A N/A Yes No Known Drug Allergies [id number] Drug Allergy Unknown N/A 07/11/2016 Medications There is no data. Problems Date Dx Coded Attending Type Code Diagnosis Diagnosed By 06/21/2010 Ot 412 06/21/2010 Ot 414.00 06/21/2010 Ot 490 06/21/2010 Ot 786.2 06/21/2010 Ot V45.82 06/21/2010 Ot V58.66 06/21/2010 Ot V58.69 04/08/2015 FABIEN APONTE B961 Klebsiella pneumoniae as the cause of diseases classd elswhr 04/08/2015 FABIEN APONTE H84919 Nicotine dependence, cigarettes, uncomplicated 04/08/2015 FABIEN APONTE N390 Urinary tract infection, site not specified 04/08/2015 FABIEN APONTE R531 Weakness 05/14/2015 WES FLAHERTY APRN Ot F17.211 NICOTINE DEPENDENCE, CIGARETTES, IN [place] 05/14/2015 WES FLAHERTY APRN Ot L03.115 CELLULITIS OF RIGHT LOWER LIMB 01/29/2016 LILIYA KIRK MD Ot R13.10 DYSPHAGIA, UNSPECIFIED 01/29/2016 LILIYA KIRK MD Ot Z01.818 ENCOUNTER FOR OTHER PREPROCEDURAL EXAMIN 01/29/2016 LILIYA KIRK MD Ot K22.70 FIGUEROA'S ESOPHAGUS WITHOUT DYSPLASIA 01/29/2016 LILIYA KIRK MD, Ot K22.719 FIGUEROA'S ESOPHAGUS WITH DYSPLASIA, UNSP 01/29/2016 LILIYA KIRK MD Ot K29.40 CHRONIC ATROPHIC GASTRITIS WITHOUT BLEED 01/29/2016 LILIYA KIRK MD Ot K44.9 DIAPHRAGMATIC HERNIA WITHOUT OBSTRUCTION 02/08/2016 LILIYA KIRK MD, Ot K22.719 FIGUEROA'S ESOPHAGUS WITH DYSPLASIA, UNS 02/08/2016 REAGAN ARAUJO, LILIYA Morales Ot K29.40 CHRONIC ATROPHIC GASTRITIS WITHOUT BLEED 02/08/2016 REAGAN ARAUJO, LILIYA Morales Ot K44.9 DIAPHRAGMATIC HERNIA WITHOUT OBSTRUCTION 07/12/2016 MADYSON ARAUJO, OLEG Granda Ot N32.81 OVERACTIVE BLADDER 07/12/2016 MADYSON ARAUJO, OLEG Granda Ot N36.42 INTRINSIC SPHINCTER DEFICIENCY (ISD) 07/12/2016 MADYSON ARAUJO, OLEG A Ot N39.46 MIXED INCONTINENCE 07/12/2016 MADYSON ARAUJO, OLEG A Ot Z01.818 ENCOUNTER FOR OTHER PREPROCEDURAL EXAMIN 07/15/2016 MADYSON ARAUJO, OLEG A Ot N32.81 OVERACTIVE BLADDER 07/15/2016 MADYSON ARAUJO, OLEG A Ot N36.42 INTRINSIC SPHINCTER DEFICIENCY (ISD) 07/15/2016 MADYSON ARAUJO, OLEG A Ot N39.46 MIXED INCONTINENCE 07/18/2016 MADYSON ARAUJO, OLEG A Ot N32.81 OVERACTIVE BLADDER 07/18/2016 MADYSON ARAUJO, OLEG A Ot N36.42 INTRINSIC SPHINCTER DEFICIENCY (ISD) 07/18/2016 MADYSON ARAUJO, OLEG A Ot N39.46 MIXED INCONTINENCE 07/21/2016 MADYSON ARAUJO, OLEG A Ot N32.81 OVERACTIVE BLADDER 07/21/2016 MADYSON ARAUJO, OLEG A Ot N36.42 INTRINSIC SPHINCTER DEFICIENCY (ISD) 07/21/2016 MADYSON ARAUJO, OLEG A Ot N39.46 MIXED INCONTINENCE 05/11/2017 NATALIE ARAUJO, SHANIQUA Peng Ot Z12.31 ENCNTR SCREEN MAMMOGRAM FOR MALIGNANT NE 06/08/2017 JULES CHAN MD Ot K92.1 MELENA 06/08/2017 JULES CHAN MD Ot Z01.818 ENCOUNTER FOR OTHER PREPROCEDURAL EXAMIN 06/08/2017 JULES CHAN MD, Ot Z12.11 ENCOUNTER FOR SCREENING FOR MALIGNANT NE Procedures There is no data. Results Test Result Range Methicillin resistant Staphylococcus aureus (MRSA) screening culture - 06:28 Methicillin resistant Staphylococcus aureus (MRSA) screening culture NEG NRG Encounters ACCT No. Visit Date/Time Discharge Status Pt. Type Provider Facility Loc./Unit Complaint [id number] 03/31/2015 06:45:00 04/04/2015 03:30:02 DIS Outpatient UNASSIGNED DOCTOR, DOCTOR [id number] 03/31/2015 07:23:00 04/01/2015 02:46:49 DIS Emergency FABIEN APONTE [id number] 06/07/2017 05:31:00 06/07/2017 23:59:59 CLS Outpatient JULES CHAN MD [facility] PREOP COLONOSCOPY [id number] 04/20/2017 13:03:00 04/20/2017 23:59:59 CLS Outpatient SHANIQUA ESTRADA MD [facility] RAD WELL WOMAN EXAM [id number] 03/02/2017 14:11:00 03/02/2017 23:59:59 CLS Preadmit DELMI BYRNES MD [facility] RAD ROUTINE MAINTENANCE [id number] 07/15/2016 06:05:00 07/15/2016 09:35:00 DIS Outpatient OLEG COUGHLIN MD [facility] STRESS URINARY INCONTINENCE [id number] 07/11/2016 12:28:00 07/11/2016 12:58:00 DIS Outpatient OLEG COUGHLIN MD [facility] PREOP INCONT [id number] 01/29/2016 09:11:00 01/29/2016 12:00:00 DIS Outpatient LILIYA KIRK MD [facility] DYSPHAGIA [id number] 01/28/2016 06:11:00 01/28/2016 23:59:59 CLS Outpatient LILIYA KIRK MD [facility] PREOP DYSPHAGIA [id number] 05/14/2015 20:48:00 05/14/2015 22:18:00 DIS Emergency WES FLAHERTY MANAGER CONTRACTING [facility] ER R ARM/LEG SWELLING/PAIN [id number] 06/14/2017 09:30:00 PEN Preadmit JULES CHAN MD [facility] ENDO SCREENING/+BLOOD IN STOOLS [id number] 06/21/2010 20:53:00 Document Registration
--- NOTE | 2017-06-16 14:31 | PM&R Post Admission Assessment ---
Post Admission Physician Asses The preadmission screen agrees with the post admission assessment that the patient is a good candidate for inpatient rehabilitation. The patient will have a comprehensive program of inpatient rehabilitation with a goal of maximizing level of functional independence prior to discharge home with [facility]. The patient will have PT/OT ninety minutes per day, each discipline , five days a week for gait, strengthening, conditioning, balance, ADLs, any patient/family/caregiver training as necessary. Speech therapy to do cognitive assessment and treat as indicated. Rehabilitation nursing to assist with bowel, bladder, skin, wound care, medication administration, pain management. Women'S Apparel Salesperson to assist with discharge planning, community reentry. SCD's for DVT prophylaxis. She appears to be well motivated to participate in three hours of therapy a day. She should be able to tolerate three hours of therapy a day from a medical and surgical standpoint. She should benefit from the three hours of therapy a day. She has a reasonable discharge plan, reasonable discharge rehabilitation goals and a supportive family. She has various comorbidities that need to be closely monitored with medications and treatments adjusted on a daily basis as needed. These include: Ischemic Bowel D HTN Insomnia OA s/p recent revision RT THR JARAD She was utilizing a walker prior to this Barriers to discharge for this patient who had been independent prior to this are for her to be modified independent to supervision for ADLs and mobility skills prior to discharge home with [facility], so as to lessen the burden of the caregivers. Risks for this patient include: 1. Fall 2. Fracture 3. DVT 4. Pulmonary embolism 5. Wound infection/dehiscence 6. Skin breakdown 7. Contractures 8. Poorly controlled pain 9. Urinary retention 10. UTI 11. Respiratory infection 12. Aspiration 13. Poorly controlled HTN Estimated Length of Stay: 14 days Prognosis: Rehab prognosis appears good for goal of discharge home with [facility] modified independent to supervision for ADLs and mobility skills. HERNAN BRYAN MD Jun 16, 2017 14:31
--- NOTE | 2017-06-16 14:48 | Physical Therapy Evaluation ---
PT Evaluation-General Medical Diagnosis Admission Date Jun 16, 2017 at 13:40 Medical Diagnosis: Debility Onset Date: Jun 06, 2017 Therapy Diagnosis Therapy Diagnosis: Weakness, poor activity tolerance, functional mobility Height/Weight Height (Feet): 5 Height (Inches): 7.00 Weight (Pounds): 201 Weight (Ounces): 0.0 Precautions Precautions/Isolations: Fall Prevention, Standard Precautions Weight Bear Status Right Lower Extremity: Right Full Weight Bearing Left Lower Extremity: Left Full Weight Bearing Referral Physician: Alexis Gaffney MD Reason for Referral: Evaluation/Treatment Medical History Pertinent Medical History: CAD, HTN Additional Medical History Hyperlipidemia Current History Pt admitted for ischemic bowel disease, malaise, and nausea, laparotomy was performed. Pt developed weakness. Reviewed History: Yes Social History Home: Single Level Current Living Status: Children Entry Into Home: Ramp PT Steps Into Home: 0 Pt owns a cat. Prior/Core FIM Prior Level of Function Functional Sloan Measure 0=Not Assessed/NA 4=Minimal Assistance 1=Total Assistance 5=Supervision or Setup 2=Maximal Assistance 6=Modified Sloan 3=Moderate Assistance 7=Complete Sloan Bed Mobility: 7 Transfers (B,C,W/C) (FIM): 6 Gait: 6 Locomotion: 6 Pt reports using a FWW in the home and in the environment. PT Evaluation-Current Subjective Pt is laying in bed pre eval and has no complaints of pain. Pr agrees to PT. Pt reports feeling extremely tired. Pt/Family Goals Sloan at home Objective Patient Orientation: Normal For Age ROM/Strength ROM Lower Extremities Grossly WNL randy Strenght Lower Extremities LLE: Grossly 4/5 RLE: Grossly 3+/5, 3/5 in ankle DF Neuromuscular (Tone, Coordination, Reflexes) NT Sensory Vision: Wears Glasses Hearing: Functional Sensation Right Lower Extremit: Intact Sensation Left Lower Extremity: Intact Transfers Functional Sloan Measure 0=Not Assessed/NA 4=Minimal Assistance 1=Total Assistance 5=Supervision or Setup 2=Maximal Assistance 6=Modified Sloan 3=Moderate Assistance 7=Complete IndependenceIRFPAI Quality Coding Scale 6 Independent with activity with or without an assistive device 5 Patient requires set up or clean up by helper. Patient completes activity by themselves 4 Supervision or touching assist (CGA). [place] provide cues , steadying assist 3 The helper provides less than half the effort to complete the activity 2 The helper provides more than half the effort to complete the activity 1 Dependent. The helper does all the effort to complete an activity 7 Patient refused to complete or attempt activity 9 The patient did not perform the activity before the current illness or injury 88 Not attempted due to Medical conditions or safety concerns Transfers (B, C, W/C) (FIM): 4 Scootin Rollin Roll Left to Right (QC): 5 Supine to/from Sit: 5 Sit to/from Stand: 4 Sit to Lying (QC): 5 Lying to Sitting/Side of Bed(Q: 4 Sit to Stand (QC): 4 Chair/Hkv-uw-Zkstw Xfer(QC): 4 Car Transfer (QC): 88 Pt wore gait belt at chest level due to pain at abdominal incision site. Patient performed bed mobility with SBA, sit to stand and transfers with CGA. Gait Does the Patient Walk?: Yes Mode of Locomotion: Walk Anticipated Mode of Locomotion: Walk Gait (FIM): 2 Distance (FIM): 1=up to 49 ft Walk 10 feet (QC): 4 Walk 50 ft with 2 Turns(QC): 4 Walk 150 ft (QC): 88 Walking 10ft/uneven surface-QC: 4 Distance: 70 feet x1, 30 feet x1 Gait Level of Assist: 4 Gait Persons Needed: 1 Gait Assistive Device: FWW Comments/Gait Description Pt ambulates with FWW and has slight hip IR on the L. Pt ambulates in an uncoordinated manner. Patient ambulated 70' with a rolling walker with CGA, including 10' over an uneven surface and 50' with at least 2 tuns of 90 degrees. Wheelchair Training Does the Pt Use a Wheelchair?: Yes Wheelchair (FIM): 5 Wheelchair Distance (FIM): 3=150 ft Distance: 150 feet Wheelchair Level of Assist: 5 Wheel 50 ft with 2 turns (QC): 5 Wheel 150 ft (QC): 5 Type of Wheelchair: Manual Pt propels WCH with use of BUE and LLE. Pt avoids contacting ground with the RLE. Stairs Stairs (FIM): 1 #of Steps: 1 Level of Assist: 4 1 Step (curb) (QC): 1 4 Steps (QC): 88 Assistive Device: Walker 12 Steps (QC): 88 Balance Sitting Static: Normal Sitting Dynamic: Normal Standing Static: Normal Standing Dynamic: Normal Picking up an Object (QC): 88 Treatment Pt performed bed mobility, strength and sensation testing, gait training, WCH mobility, and LE exercises. Seated exercises: Ankle pumps: 20 x1 BLE, Marching 20 x1 BLE, LAQ: 20 x1 BLE, Hip abd/add: 20 x1 BLE, Heel slides: 20 x1 BLE Assessment/Needs Pt demonstrates weakness in the RLE, especially with ankle DF, impaired endurance, and general debility. 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 PT Short Term Goals Short Term Goals Time Frame: Jun 23, 2017 Transfers (B,C,W/C) (FIM): 5 Gait (FIM): 2 Distance (FIM): 8=592-86 ft Gait Distance Comment: 100 feet Gait Level of Assist: 5 Gait Assistive Device: FWW Stairs (FIM): 2 # of Steps: 4 Stairs Level of Assist: 4 PT Visual Merchandising Assistant Goals Visual Merchandising Assistant Goals PT Visual Merchandising Assistant Goals Time Frame: Jul 07, 2017 Transfers (B,C,W/C) (FIM): 6 Sit to Lying (QC): 6 Lying-Sitting on Side/Bed(QC): 6 Sit to Stand (QC): 6 Rollin Roll Left to Right (QC): 6 Chair/Ajg-uc-Bczzy Xfer(QC): 6 Car Transfer (QC): 6 Does the Patient Walk: Yes Gait (FIM): 6 Distance: 200 feet Walk 10 feet (QC): 6 Walk 10ft-Uneven Surface(QC): 6 Walk 50ft with 2 Turns (QC): 6 Walk 150 ft (QC): 6 Gait Level of Assist: 6 Gait Assistive Device: FWW Does the Pt use WC or Scooter?: No Stairs (FIM): 5 # of Steps: 12 1 Step (curb) (QC): 4 4 Steps (QC): 4 12 Steps (QC): 4 Stairs Level Of Assist: 5 Picking up an Object (QC): 4 PT Plan Problem List Problem List: Activity Tolerance, Functional Strength, Safety, Balance, Gait, Transfer, Bed Mobility Treatment/Plan Treatment Plan: Continue Plan of Care Treatment Plan: Bed Mobility, Education, Functional Activity Darrel, Functional Strength, Group Therapy, Gait, Safety, Therapeutic Exercise, Transfers Treatment Duration: Jul 07, 2017 Frequency: At least 5 of 7 days/Wk (IRF) Estimated Hrs Per Day: 1.5 hours per day Patient and/or Family Agrees t: Yes Safety Risks/Education Patient Education: Gait Training, Transfer Techniques, Steps, Correct Positioning, W/C Management, Safety Issues Teaching Recipient: Patient Teaching Methods: Demonstration, Discussion Response to Teaching: Reinforcement Needed Discharge Recommendations Plan Patient will perform bed mobility and transfer training, balance and endurance training, functional strengthening, stair training, gait training, and education , to improve functional mobility and independence at home. Therapy D/C Recommendations: Home w/ Family Support Equpiment Recommendations-D/C: Front Wheeled Walker Time/GCodes Time In: 1402 Time Out: 1447 Total Billed Treatment Time: 45 Total Billed Treatment 1 visit 30 min EVM 15' GT FE PEREZ PT Jun 16, 2017 14:48
[2017-06-16] MEDS ORDERED: MULT-878 PO (15:16)
[2017-06-16] MEDS ORDERED: FESO4TAB PO (15:16)
[2017-06-16] MEDS ORDERED: DULO30CA48 PO (15:16)
[2017-06-16] MEDS ORDERED: CLOB118S3 TOP (15:16)
[2017-06-16] MEDS ORDERED: TRAZ100T92 PO (15:16)
[2017-06-16] MEDS ORDERED: RT-ALBUINH INH (15:16)
[2017-06-16] MEDS ORDERED: RIVA1PAT11 TD (15:16)
[2017-06-16] MEDS ORDERED: TRAZ-28 PO (15:16)
[2017-06-16] MEDS ORDERED: RANI150C4 PO (15:16)
[2017-06-16] MEDS ORDERED: METO50TA15 PO (15:16)
[2017-06-16] MEDS ORDERED: EST30C VG (15:16)
[2017-06-16] MEDS ORDERED: CETI10TA17 PO (15:16)
[2017-06-16] MEDS ORDERED: RISP1TAB3 PO (15:16)
[2017-06-16] MEDS ORDERED: ASPI325T32 PO (15:16)
[2017-06-16] MEDS ORDERED: OXYC-529 PO (15:16)
[2017-06-16] MEDS ORDERED: LISI10TA2 PO (15:16)
[2017-06-16] MEDS ORDERED: TRIM100T PO (15:16)
[2017-06-16] MEDS ORDERED: ACET325T38 PO (15:16)
--- NOTE | 2017-06-16 15:20 | Consultation (CHS) ---
HPI History of Present Illness: 61 yo female admitted to IRF after small bowel resection x 2 at [facility] in [place] due to bowel ischemia. She reports she is currently just feeling tired and has mild lower abdominal pain, loose stools and difficulty controlling bowels. Source: patient Date seen by provider: Jun 16, 2017 Time Seen by Provider: 15:00 Attending Physician Alexis Gaffney MD PCP Ray Serna MD Consult Date of Admission Jun 16, 2017 at 13:40 Home Medications Home Medications Reviewed patient Home Medication Reconciliation Form Allergies Coded Allergies: No Known Drug Allergies (Unverified , 06/16/17) WDQ-Cdeffh-Ujuofr Hx Patient Social History Alcohol Use: Denies Use Recreational Drug Use: No Former smoker/When Quit: Apr 14, 2014 Recent Foreign Travel: No Contact w/other who traveled: No Recent Hopitalizations: Yes ([facility] WITH BOWEL RESECTION) Recent Infectious Disease Expo: No Physical Abuse Screen: No Sexual Abuse: No Immunizations Up To Date Date of Pneumonia Vaccine: Jun 30, 2012 Date of Influenza Vaccine: Feb 21, 2017 Past Medical History PMHx: CAD s/p stenting HTN Anxiety PSurgHx: Right hip replacement Small bowel resection x 2 with bowel ischemia Family Medical History Significant Family History: Diabetes, Hypertension Review of Systems ([facility]) Constitutional: No fever EENTM: no symptoms reported Respiratory: No cough, No short of breath Cardiovascular: No chest pain Gastrointestinal: see HPI Genitourinary: No dysuria Musculoskeletal: joint pain (hip) Skin: no symptoms reported Psychiatric/Neurological: Anxiety Physical Exam-([facility]) Physical Exam Vital Signs VS - Last 72 Hours, by Label 06/16/17 13:55 Temp 97.0 Pulse 59 Resp 16 B/P (MAP) 132/86 (101) Pulse Ox 95 O2 Delivery Room Air Capillary Refill : General Appearance: WD/WN, no apparent distress Respiratory: lungs clear, normal breath sounds Cardiovascular: regular rate, rhythm, no murmur Gastrointestinal: normal bowel sounds, non tender, soft, other (midline incision with camden, no erythema or exudate) Extremities: no pedal edema Neurologic/Psychiatric: alert, normal mood/affect Skin: normal color, warm/dry Assessment/Plan Assessment/Plan (1) S/P small bowel resection Status: Acute Assessment & Plan: Rehab, follow up with Surgeon as directed, staple removal in one week (2) Ischemic bowel disease Status: Chronic Assessment & Plan: Vascular Surgery consulted at [facility] and no acute intervention recommended, manage blood pressure, cholesterol (3) Coronary artery disease Status: Chronic Assessment & Plan: Resume home medications/medications as prescribed on d/c from [facility] Qualifiers: Qualified Codes: I25.10 - Atherosclerotic heart disease of [place] coronary artery without angina pectoris (4) Anxiety Status: Chronic Assessment & Plan: Resume home medications (5) Hypertension Status: Chronic Assessment & Plan: Resume home medications with changes as prescribed on hospital discharge Qualifiers: Qualified Codes: I10 - Essential (primary) hypertension Clinical Quality Measures DVT/VTE Risk/Contraindication: Risk Factor Score Per Nursin RFS Level Per Nursing on Admit: 3=High SHANIQUA ESTRADA MD Jun 16, 2017 15:20
[2017-06-16] MEDS ORDERED: DOCU-244 PO (15:32)
[2017-06-16] MEDS ORDERED: PREG150C PO (15:32)
[2017-06-16] MEDS ORDERED: LOPE2TAB34 PO (15:32)
--- NOTE | 2017-06-16 15:45 | HISTORY AND PHYSICAL ---
DATE OF SERVICE: CHIEF COMPLAINT: Difficulty with walking. HISTORY OF PRESENT ILLNESS: The patient is a 61-year-old disabled female lives in her own home in [place], [place] who presented to ED at [place] with complaints of general body aches, nausea, and back pain. She was found to have an elevated lactic acid as well as UTI. CT of her abdomen showed ischemic proximal small bowel with wall thickening, pneumatosis and ileus. She was transferred to [facility] on 06/06/2016 for further evaluation and treatment. She went on to have resection of ischemic small bowel. She was left with general debilitation from all this and is now referred to inpatient rehabilitation unit at [facility], so it will be closer to home. Her PCP is Dr. Serna at [facility]. 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 She has a daughter that lives nearby that helps as needed. She reports having had a revision of her right total hip replacement done in [place] approximately 1 year ago and has used a walker since that time. Currently, she requires assistance for ADLs and mobility skills.She is min assist for transfers and gait with WW,She is min assist for grooming and toileting ,She is setup for eatinghas dentures. PAST MEDICAL HISTORY: Coronary artery disease, hypertension, hyperlipidemia.OA PAST SURGICAL HISTORY: History of PTCA and recent surgery as per above, exploratory laparotomy and resection of bowel this past May. ALLERGIES: No known medication allergies. FAMILY HISTORY: Diabetes in mother, sister, and brother. SOCIAL HISTORY: Former 2 pack a day smoker for a total of 40 pack years, quit in 2013. No alcohol. REVIEW OF SYSTEMS: A 10-point review of systems significant for mild abdominal pain, generalized weakness, hip pain. MEDICATIONS: Ditropan 5 mg p.o. b.i.d., Protonix 40 mg p.o. daily, Lyrica 150 mg p.o. daily, Exelon 4.6 mg patch daily. Temazepam 50 mg p.o. each day at bedtime p.r.n. insomnia. Kenalog cream applied to affected area daily, albuterol inhaler 2 puffs q.4 hours p.r.n. shortness of breath, amlodipine 10 mg p.o. daily, Cymbalta 30 mg p.o. daily, Pepcid 20 mg p.o. b.i.d., hydrocodone/APAP 5/325 one tablet p.o. q. 6 hours p.r.n. pain. Blistex apply three times a day p.r.n. to lips discomfort, lisinopril 40 mg p.o. every day. Lopressor 50 mg p.o. b.i.d. PHYSICAL EXAMINATION: GENERAL: Pleasant obese female appearing her stated age, alert and oriented, no acute distress, sitting on the side of the bed. VITAL SIGNS: She is afebrile, pulse is 58, respirations 18, blood pressure 132/88, O2 sat 95% on room air. HEENT: The patient's speech, hearing grossly intact. No oral lesion is noted. NECK: Supple without mass. CARDIOVASCULAR: Regular rate and rhythm. RESPIRATORY: Chest is clear. ABDOMEN: Midline laparotomy incision site, healing well. No drainage noted. Paul in place. EXTREMITIES: No leg edema, no calf tenderness. MUSCULOSKELETAL: The patient has functional active range of motion in all 4 extremities. NEUROLOGIC: Strength is 4/5 LLE 3/5 RT ankle dorsiflexion 3+/5 proximal. Strength 4/5 except rt shoulder flex/abduction approx 80 degrees active. Sensation grossly intact to touch. Cognition intact. ASSESSMENT: 1. General debilitation secondary to ischemic bowel disease status post exploratory laparotomy and excision of ischemic bowel. General surgery at outside hospital [facility]. 2. Hypertension, controlled with medication. 3. Coronary artery disease status post PTCA on meds. 4. OA s/p Revision RT DWAIN approx one year ago 5. Remote history of tobaccoism 6. Obesity PLAN: The patient will have a comprehensive program of inpatient rehabilitation with goal of maximizing level of functional independence prior to discharge home with home healthcare and family to assist as needed. The patient will have PT, OT 90 minutes per day each discipline, 5 days a week for gait, strengthening, conditioning, balance, ADLs, any patient family caregiver training necessary, any adaptive equipment training is necessary. Rehabilitation nursing to assist with bowel, bladder, skin care, medication administration, pain management. Social service to assist with discharge planning, community reentry. Follow up with [facility] physician as per their schedule. Routine admission labs. ESTIMATED LENGTH OF STAY: 14 days. PROGNOSIS: Rehab prognosis appears good for goal of discharging home with home health care and family to assist as needed, modified independent to supervision for ADLs and mobility skills. DIET: Regular. CODE STATUS: Full code. Job ID: [id number] DocumentID: [id number] Dictated Date: 06/16/2017 14:41:54 Clearing Supervisor Date: 06/16/2017 15:44:52 Dictated By: HERNAN BRYAN MD MTDD
--- NOTE | 2017-06-16 16:16 | Occupational Therapy Eval ---
OT Evaluation-General/PLF Medical Diagnosis Admission Date Jun 16, 2017 at 13:40 Medical Diagnosis: Debility Onset Date: Jun 06, 2017 Therapy Diagnosis Therapy Diagnosis: decr self care, decr act disha, decr funct mob, weakness Height/Weight Height (Feet): 5 Height (Inches): 7.00 Weight (Pounds): 201 Weight (Ounces): 0.0 Precautions Precautions/Isolations: Fall Prevention, Standard Precautions Weight Bear Status No heavy lifting greater than 10 pounds Referral Physician: Alexsi Gaffney MD Referral Reason: Evaluation/Treatment Medical History Pertinent Medical History: CAD, HTN, Neuropathy (in her feet, per patient report) Additional Medical History R total hip revision about a year ago. Anxiety. Cardiac stent Current History Bowel resection 06-06-17, off vent and to the floor 06-10-17. Sepsis. ischemic bowel disease. Reviewed History: Yes Social History Home: Single Level Current Living Status: Alone Entry Into Home: Ramp Steps Into Home: 0 ADL-Prior Level of Function ADL PLOF Comments Pt reported that she has been able to manage most of her basic self care tasks, but she has help for bathing and brushing her hair due to R shoulder "issues". Her granddaughter is her care worker and she is there from 8-4, 5 days a week. She also has help 2.5 hours on Monday and Monday. Caregivers do laundry, cook all her meals, do cleaning, help with bathing. 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 Pain rated 4/10 at upper end of abdominal incision. Not described. Appearance Alert, cooperative, anxious. Some tremors and involuntary movements of mouth and jaws Mental Status/Objective Patient Orientation: Person, Place, Time, Situation Current Glasses/Contacts: Yes Hearing Aids: Yes Dentures/Partials: Yes Hand Dominance: Right Upper Extremity ROM Grossly WFL except R shoulder flex/abd approx 80 degrees active. Upper Extremity Strength Grossly 4/5 bilat except R shoulder flex/abd ADL-Treatment ADL-Current Pt got out of recliner with SBA and walked CGA/FWW to bathroom to toilet and wash hands. She returned to bed with CGA, FWW (no LOB observed) and got into bed with SBA. Pt left up in bed, 4 rails up, all needs met. Functional Parmer Measure 0=Not Assessed/NA 4=Minimal Assistance 1=Total Assistance 5=Supervision or Setup 2=Maximal Assistance 6=Modified [place] 3=Moderate Assistance 7=Complete IndependenceIRFPAI Quality Coding Scale 6 Independent with activity with or without an assistive device 5 Patient requires set up or clean up by helper. Patient completes activity by themselves 4 Supervision or touching assist (CGA). [place] provide cues , steadying assist 3 The helper provides less than half the effort to complete the activity 2 The helper provides more than half the effort to complete the activity 1 Dependent. The helper does all the effort to complete an activity 7 Patient refused to complete or attempt activity 9 The patient did not perform the activity before the current illness or injury 88 Not attempted due to Medical conditions or safety concerns Eating (FIM): 5 (Per patient report, setup. She has dentures but said that she can eat anything without them ) Eating (QC): 5 Grooming (FIM): 4 (Stood at sink to wash hands, SBA, FWW. SKilled cues for walker placement. Pt rpeorted that she needs help to brush her hair because of bad R shoulder) Oral Hygiene (QC): 9 (Does not have dentures here. has no teeth.) On/Off Footwear (QC): 5 (SBA, slipper socks) Toileting (FIM): 4 (CGA when standiing to wipe or manage clothing. Tall toilet , grab bar, FWW) Toileting Hygiene (QC): 4 Toilet/Commode Transfer (FIM): 4 (CGA getting on and off tall toilet. Grab bar , FWW) Toilet Transfer (QC): 4 Pt verbalized that she wants to get home as soon as possible to be with her cat. OT explained that she doesn't have someone with her 24 hours a day and needs to be able to safely toilet herself independently to go home. Pt agreed Education OT Patient Education: Modified ADL techniques, Purpose of tx/functional activities, Rehab process, Safety issues, Transfer techniques Teaching Recipient: Patient Teaching Methods: Discussion Response to Teaching: Verbalize Understanding, Return Demonstration, Reinforcement Needed OT Short Term Goals Short Term Goals Transfers (B,C,W/C) (FIM): 5 OT Chcf Goals Transportation Aide Goals Time Frame: Jun 30, 2017 Eating (FIM): 7 Eating (QC): 6 Groomin Oral Hygiene (QC): 6 (If dentures are here) Bathing(FIM): 6 Shower/Bathe Self (QC): 6 Upper Body Dressing(FIM): 6 Upper Body Dressing (QC): 6 Lower Body Dressing(FIM): 6 Lower Body Dressing (QC): 6 On/Off Footwear (QC): 6 Toileting(FIM): 6 Toileting Hygiene (QC): 6 Toilet/Commode Transfer(FIM): 6 Toilet/Commode Transfer (QC): 6 Tub Transfer(FIM): 6 Shower Transfer(FIM): 6 Additional Goals: 1-Demonstrate ADL Tasks, 2-Verbalize Understanding, 3- ImproveStrength/Darrel 1=Demonstrate adherence to instructed precautions during ADL tasks. 2=Patient will verbalize/demonstrate understanding of assistive devices/ modifications for ADL. 3=Patient will improve strength/tolerance for activity to enable patient to perform ADL's. OT Education/Plan Problem List/Assessment Assessment: Decreased Activ Tolerance, Decreased UE Strength, Dependent Transfers, Impaired Self-Care Skills, Restricted Funct UE ROM Pt would benefit from skilled OT to increase her independence in basic self care to allow her to safely return to her home and to decrease caregiver burden Discharge Recommendations Plan/Recommendations: Continue POC Treatment Plan/Plan of Care Treatment,Training & Education: Yes Patient would benefit from OT for education, treatment and training to promote independence in ADL's, mobility, safety and/or upper extremity function for ADL' s. Plan of Care: ADL Retraining, Functional Mobility, Group Exercise/Act as Ind ( education, exercise, socialization, activity tolerance, funct activities), UE Funct Exercise/Act, UE Neuromus Re-Ed/Coord Treatment Duration: Jun 30, 2017 Frequency: At least 5 of 7 days/Wk (IRF) Estimated Hrs Per Day: 1.5 hours per day Agreement: Yes Rehab Potential: Fair Time/GCodes Start Time: 15:20 Stop Time: 15:55 Total Time Billed (hr/min): 35 Billed Treatment Time visit, evaluation moderate intensity 20 minutes, 15 minutes ADL DAVID RICHARDSON OT Jun 16, 2017 16:16
[2017-06-16 18:00] VITALS: BP 121/77
[2017-06-16] MEDS ORDERED: RT-ALBUTEROL HFA (VENTOLIN) PER PUFF IH SCH (18:00)
[2017-06-16] MEDS: meTOprolol TARTRATE 50 MG (LOPRESSOR) TAB PO SCH (20:59)
[2017-06-16] MEDS: OXYBUTYNIN (DITROPAN) 5 MG TAB PO SCH (20:59)
[2017-06-16] MEDS: TRIAMCINOLONE 0.1% CR (KENALOG) 15 GM TUBE TOP SCH (21:00)
[2017-06-17] MEDS: RT-ALBUTEROL SULF 2.5 MG/3 ML PRE-MIX VIAL IH SCH ×4 (00:13→11:38)
[2017-06-17 05:27] LABS: BASOPHILS # (AUTO) 0.1 10^3/uL (0.0-0.1); BASOPHILS % (AUTO) 1 % (0-10); EOSINOPHILS # (AUTO) 0.1 10^3/uL (0.0-0.3); EOSINOPHILS % (AUTO) 1 % (0-10); HEMATOCRIT 34 % (35-52); HEMOGLOBIN 11.8 G/DL (11.5-16.0); LYMPHOCYTES # (AUTO) 1.4 X 10^3 (1.0-4.0); LYMPHOCYTES % (AUTO) 20 % (12-44); MEAN CORPUSCULAR HEMOGLOBIN 31 PG (25-34); MEAN CORPUSCULAR HGB CONC 34 G/DL (32-36); MEAN CORPUSCULAR VOLUME 91 FL (80-99); MEAN PLATELET VOLUME 8.8 FL (7.4-10.4); MONOCYTES # (AUTO) 0.9 X 10^3 (0.0-1.0); MONOCYTES % (AUTO) 13 % (0-12); NEUTROPHILS # (AUTO) 4.7 X 10^3 (1.8-7.8); NEUTROPHILS % (AUTO) 66 % (42-75); PLATELET COUNT 543 10^3/uL (130-400); RED BLOOD COUNT 3.78 10^6/uL (4.35-5.85); RED CELL DISTRIBUTION WIDTH 13.9 % (10.0-14.5); WHITE BLOOD COUNT 7.2 10^3/uL (4.3-11.0)
[2017-06-17 05:45] VITALS: BP 143/81
[2017-06-17 06:20] LABS: ALANINE AMINOTRANSFERASE 16 U/L (0-55); ALBUMIN 3.1 GM/DL (3.2-4.5); ALKALINE PHOSPHATASE 87 U/L (40-136); BILIRUBIN,TOTAL 0.5 MG/DL (0.1-1.0); BUN/CREATININE RATIO 10; CALCIUM 8.6 MG/DL (8.5-10.1); CARBON DIOXIDE 20 MMOL/L (21-32); CHLORIDE 108 MMOL/L (98-107); CHOLESTEROL 126 MG/DL (< 200); CREATININE SERUM 0.71 MG/DL (0.60-1.30); GFR ESTIMATED > 60; GLUCOSE 111 MG/DL (70-105); HDL CHOLESTEROL 24 MG/DL (40-60); POTASSIUM 3.6 MMOL/L (3.6-5.0); SODIUM 140 MMOL/L (135-145); TOTAL PROTEIN 6.4 GM/DL (6.4-8.2); TRIGLYCERIDES 178 MG/DL (<150); VLDL CHOLESTEROL 36 MG/DL (5-40)
[2017-06-17] MEDS: MULTIVIT W/MINERALS TAB (THERAGRAN M) PO SCH (06:33)
[2017-06-17] MEDS: PANTOPRAZOLE 40 MG (PROTONIX) TAB PO SCH (06:33)
[2017-06-17] MEDS: DOCUSATE SODIUM 100 MG (COLACE) CAP PO SCH (09:00)
[2017-06-17] MEDS: TRIAMCINOLONE 0.1% CR (KENALOG) 15 GM TUBE TOP SCH ×3 (09:00→19:51)
[2017-06-17] MEDS: PREGABALIN 75 MG (LYRICA) CAP PO SCH (09:07)
[2017-06-17] MEDS: VITAMIN D3 1,000 UNITS (CHOLECALCIFEROL) TABLET PO SCH (09:07)
[2017-06-17] MEDS: ASPIRIN E.C. 325 MG (ECOTRIN) TABLET PO SCH (09:07)
[2017-06-17] MEDS: DULoxetine 30 MG (CYMBALTA) CAP PO SCH (09:07)
[2017-06-17] MEDS: FOLIC ACID 1 MG TAB PO SCH (09:07)
[2017-06-17] MEDS: LORATADINE (CLARITIN) 10 MG TAB PO SCH (09:08)
[2017-06-17] MEDS: OXYBUTYNIN (DITROPAN) 5 MG TAB PO SCH ×2 (09:08→20:32)
[2017-06-17] MEDS: meTOprolol TARTRATE 50 MG (LOPRESSOR) TAB PO SCH ×2 (09:08→20:32)
[2017-06-17] MEDS: lisINopril 20 MG (ZESTRIL) TAB PO SCH (09:08)
[2017-06-17] MEDS: amLODIPine 5 MG (NORVASC) TAB PO SCH (09:08)
--- NOTE | 2017-06-17 09:23 | Occupational Ther Daily Note ---
OT Current Status-Daily Note Subjective Pt sleeping, woke to name. Pt agreed to therapy. No c/o pain. Pt was very anxious today, reported to nrsg. Pt was wondering about medication for anxiety. Mental Status/Objective Patient Orientation: Person, Time, Situation Functional [place] Measure 0=Not Assessed/NA 4=Minimal Assistance 1=Total Assistance 5=Supervision or Setup 2=Maximal Assistance 6=Modified [place] 3=Moderate Assistance 7=Complete [place] ADL-Treatment Functional [place] Measure 0=Not Assessed/NA 4=Minimal Assistance 1=Total Assistance 5=Supervision or Setup 2=Maximal Assistance 6=Modified [place] 3=Moderate Assistance 7=Complete IndependenceIRFPAI Quality Coding Scale 6 Independent with activity with or without an assistive device 5 Patient requires set up or clean up by helper. Patient completes activity by themselves 4 Supervision or touching assist (CGA). [place] provide cues , steadying assist 3 The helper provides less than half the effort to complete the activity 2 The helper provides more than half the effort to complete the activity 1 Dependent. The helper does all the effort to complete an activity 7 Patient refused to complete or attempt activity 9 The patient did not perform the activity before the current illness or injury 88 Not attempted due to Medical conditions or safety concerns Eating (FIM): 7 (Pt has dentures though are not at hospital. Pt is able to eat food without them. Pt able to open packages/containers and use regular utensils to cut food and feed self.) Eating (QC): 6 Grooming (FIM): 4 (Pt able to cleanse mouth and comb front part of hair. Assist to comb back of hair. Pt able to wash hands at sink. Requested to sit at sink to comb hair.) Oral Hygiene (QC): 5 Bathing (FIM): 5 (Using shower bench, grabbars and hand held shower pt is able to complete with SBA. Pt washed, rinsed and dried self.) Bathing Location: L Arm, R Arm, L Upper Leg, R Upper Leg, L Lower Leg ( including foot), R Lower Leg (including foot), Chest, Abdomen, Buttocks, Perineal Area Shower/Bathe Self (QC): 4 Upper Body (FIM): 5 (After set up, pt able to complete upper body dressing by self.) Upper Body Dressing (QC): 5 Lower Body Dressing (FIM): 5 (After set up, pt able to complete lower body dressing with SBA.) Lower Body Dressing (QC): 4 On/Off Footwear (QC): 5 Toileting (FIM): 5 (SBA in standing to manipulate clothing using FWW and grabbars. Cleanses self while sitting on toilet.) Toileting Hygiene (QC): 4 Transfers (B, C, W/C) (FIM): 5 (SBA using FWW.) Toilet/Commode Transfer (FIM): 5 (Using grabbar and FWW, pt able to complete with SBA.) Toilet Transfer (QC): 4 Shower Transfer(FIM): 5 (Using grabbar, FWW and shower bench pt able to complete with SBA.) After therapy, PT took over care of pt. Call light/phone in reach. All needs met in room. Education OT Patient Education: Purpose of tx/functional activities, Rehab process, Safety issues Teaching Recipient: Patient Teaching Methods: Demonstration, Discussion Response to Teaching: Verbalize Understanding, Return Demonstration OT Short Term Goals Short Term Goals Transfers (B,C,W/C) (FIM): 5 1=Demonstrate adherence to instructed precautions during ADL tasks. 2=Patient will verbalize/demonstrate understanding of assistive devices/ modifications for ADL. 3=Patient will improve strength/tolerance for activity to enable patient to perform ADL's. OT Residential Goals Scoop Operator Goals Time Frame: Jun 30, 2017 Eating (FIM): 7 Eating (QC): 6 Groomin Oral Hygiene (QC): 6 (If dentures are here) Bathing(FIM): 6 Shower/Bathe Self (QC): 6 Upper Body Dressing(FIM): 6 Upper Body Dressing (QC): 6 Lower Body Dressing(FIM): 6 Lower Body Dressing (QC): 6 On/Off Footwear (QC): 6 Toileting(FIM): 6 Toileting Hygiene (QC): 6 Toilet/Commode Transfer(FIM): 6 Toilet/Commode Transfer (QC): 6 Tub Transfer(FIM): 6 Shower Transfer(FIM): 6 Additional Goals: 1-Demonstrate ADL Tasks, 2-Verbalize Understanding, 3- ImproveStrength/Darrel 1=Demonstrate adherence to instructed precautions during ADL tasks. 2=Patient will verbalize/demonstrate understanding of assistive devices/ modifications for ADL. 3=Patient will improve strength/tolerance for activity to enable patient to perform ADL's. OT Education/Plan Problem List/Assessment Pt would benefit from skilled OT to increase her independence in basic self care to allow her to safely return to her home and to decrease caregiver burden Discharge Recommendations Plan/Recommendations: Continue POC Treatment Plan/Plan of Care Patient would benefit from OT for education, treatment and training to promote independence in ADL's, mobility, safety and/or upper extremity function for ADL' s. Plan of Care: ADL Retraining, Functional Mobility, Group Exercise/Act as Ind ( education, exercise, socialization, activity tolerance, funct activities), UE Funct Exercise/Act, UE Neuromus Re-Ed/Coord Treatment Duration: Jun 30, 2017 Frequency: At least 5 of 7 days/Wk (IRF) Estimated Hrs Per Day: 1.5 hours per day Agreement: Yes Rehab Potential: Fair Time/GCodes Start Time: 08:08 Stop Time: 08:58 Total Time Billed (hr/min): 50 Billed Treatment Time 1 visit-ADL 3 (50 min) LOLA ANDREWS Jun 17, 2017 09:23
--- NOTE | 2017-06-17 09:56 | Physical Therapy Daily Note ---
PT Daily Note-Current Subjective Pt. agrees to Rx but state she is very nervous about being here and hopes to be home as soon as possible. Wants reassurance that she is doing well. Pain Numeric Pain Scale: 2 Location: Medial Location Body Site: Abdomen Pain Description: Pressure Comment: c/o abdominal discomfort with activity Mental Status Patient Orientation: Normal For Age Transfers Functional [place] Measure 0=Not Assessed/NA 4=Minimal Assistance 1=Total Assistance 5=Supervision or Setup 2=Maximal Assistance 6=Modified [place] 3=Moderate Assistance 7=Complete IndependenceIRFPAI Quality Coding Scale 6 Independent with activity with or without an assistive device 5 Patient requires set up or clean up by helper. Patient completes activity by themselves 4 Supervision or touching assist (CGA). [place] provide cues , steadying assist 3 The helper provides less than half the effort to complete the activity 2 The helper provides more than half the effort to complete the activity 1 Dependent. The helper does all the effort to complete an activity 7 Patient refused to complete or attempt activity 9 The patient did not perform the activity before the current illness or injury 88 Not attempted due to Medical conditions or safety concerns Transfers (B, C, W/C) (FIM): 5 Scootin Rollin Supine to/from Sit: 5 Sit to/from Stand: 6 Bed to/from Chair: 5 Weight Bearing Right Lower Extremity: Right Full Weight Bearing Left Lower Extremity: Left Full Weight Bearing Gait Training Does the Patient Walk?: Yes Gait (FIM): 5 Distance (FIM): 3=150 ft (x2) Gait Level of Assist: 5 Gait Persons Needed: 1 Gait Assistive Device: FWW fatigue at 150 ft Stair Training Stair Training: Handrails/: 2 handrails Stairs (FIM): 2 #of Steps: 4 Stairs: Pattern: Step to Level of Assist: 4 Exercises Supine Ex: Bridging, Ankle pumps, Quad Set, Rolling, Glut sets, Heel Slides, Short Arc Quads, Scooting, Hip abd/add Supine Reps: 15 Seated Therapy Exercises: Ankle pumps, Sit to stand, Long arc quads, Hip flexion, Hip abd/add Seated Reps: 15 NuStep Minutes: 10 NuStep Workload: 2 Treatments toileted SBA Assessment Current Status: Good Progress motivated, pleasant PT Short Term Goals Short Term Goals Time Frame: Jun 23, 2017 Transfers (B,C,W/C) (FIM): 5 Gait (FIM): 2 Distance (FIM): 5=461-49 ft Gait Distance Comment: 100 feet Gait Level of Assist: 5 Gait Assistive Device: FWW Stairs (FIM): 2 # of Steps: 4 Stairs Level of Assist: 4 PT Correction Goals Correction Goals PT Dope House Operator Helper Goals Time Frame: Jul 07, 2017 Transfers (B,C,W/C) (FIM): 6 Sit to Lying (QC): 6 Lying-Sitting on Side/Bed(QC): 6 Sit to Stand (QC): 6 Rollin Roll Left to Right (QC): 6 Chair/[id number]-Usspz Xfer(QC): 6 Car Transfer (QC): 6 Does the Patient Walk: Yes Gait (FIM): 6 Distance: 200 feet Walk 10 feet (QC): 6 Walk 10ft-Uneven Surface(QC): 6 Walk 50ft with 2 Turns (QC): 6 Walk 150 ft (QC): 6 Gait Level of Assist: 6 Gait Assistive Device: FWW Does the Pt use WC or Scooter?: No Stairs (FIM): 5 # of Steps: 12 1 Step (curb) (QC): 4 4 Steps (QC): 4 12 Steps (QC): 4 Stairs Level Of Assist: 5 Picking up an Object (QC): 4 PT Plan Treatment/Plan Treatment Plan: Continue Plan of Care Treatment Plan: Bed Mobility, Education, Functional Activity Darrel, Functional Strength, Group Therapy, Gait, Safety, Therapeutic Exercise, Transfers Treatment Duration: Jul 07, 2017 Frequency: At least 5 of 7 days/Wk (IRF) Estimated Hrs Per Day: 1.5 hours per day Patient and/or Family Agrees t: Yes Safety Risks/Education Patient Education: Gait Training, Transfer Techniques, Steps, Correct Positioning, Disease Process, Safety Issues Teaching Recipient: Patient Teaching Methods: Discussion Response to Teaching: Verbalize Understanding, Return Demonstration, Reinforcement Needed Time/GCodes Time In: 900 Time Out: 945 Total Billed Treatment Time: 45 Total Billed Treatment 1,EX20,GT15,FA10 G Codes Necessary: KIRA Villalba BROACH SETTER Jun 17, 2017 09:56
[2017-06-17] MEDS: HYDROcodone/APAP 5 MG/325 MG (LORTAB) TAB PO PRN (11:01)
[2017-06-17] MEDS ORDERED: LOPERAMIDE 2 MG (IMODIUM) CAP PO PRN (14:30)
[2017-06-17] MEDS ORDERED: RT-ALBUTEROL SULF 2.5 MG/3 ML PRE-MIX VIAL IH PRN (14:30)
[2017-06-17 18:21] VITALS: BP 119/82
[2017-06-17] MEDS: ATORVASTATIN 40 MG (LIPITOR) TABLET PO SCH (20:32)
[2017-06-18 05:24] VITALS: BP 119/82
[2017-06-18] MEDS: PANTOPRAZOLE 40 MG (PROTONIX) TAB PO SCH (06:08)
[2017-06-18] MEDS: MULTIVIT W/MINERALS TAB (THERAGRAN M) PO SCH (06:08)
[2017-06-18] MEDS: ASPIRIN E.C. 325 MG (ECOTRIN) TABLET PO SCH (08:50)
[2017-06-18 08:51] VITALS: BP 118/74
[2017-06-18] MEDS: lisINopril 20 MG (ZESTRIL) TAB PO SCH (08:52)
[2017-06-18] MEDS: DOCUSATE SODIUM 100 MG (COLACE) CAP PO SCH (08:52)
[2017-06-18] MEDS: meTOprolol TARTRATE 50 MG (LOPRESSOR) TAB PO SCH ×2 (08:52→20:21)
[2017-06-18] MEDS: LORATADINE (CLARITIN) 10 MG TAB PO SCH (08:52)
[2017-06-18] MEDS: FOLIC ACID 1 MG TAB PO SCH (08:53)
[2017-06-18] MEDS: OXYBUTYNIN (DITROPAN) 5 MG TAB PO SCH ×2 (08:53→20:21)
[2017-06-18] MEDS: PREGABALIN 75 MG (LYRICA) CAP PO SCH (08:53)
[2017-06-18] MEDS: DULoxetine 30 MG (CYMBALTA) CAP PO SCH (08:53)
[2017-06-18] MEDS: amLODIPine 5 MG (NORVASC) TAB PO SCH (08:53)
[2017-06-18] MEDS: VITAMIN D3 1,000 UNITS (CHOLECALCIFEROL) TABLET PO SCH (08:53)
[2017-06-18] MEDS: TRIAMCINOLONE 0.1% CR (KENALOG) 15 GM TUBE TOP SCH ×2 (09:12→20:22)
[2017-06-18] MEDS: DICLOFENAC SOD 75 MG (VOLTAREN) TAB NON-FORMULARY PO SCH (14:07)
[2017-06-18] MEDS: RIVASTIGMINE 4.6 MG PATCH (EXELON) TD SCH (14:34)
[2017-06-18 18:17] VITALS: BP 119/80
[2017-06-18] MEDS: HYDROcodone/APAP 5 MG/325 MG (LORTAB) TAB PO PRN (20:21)
[2017-06-18] MEDS: ATORVASTATIN 40 MG (LIPITOR) TABLET PO SCH (20:21)
[2017-06-19 05:07] VITALS: BP 99/61
[2017-06-19] MEDS: MULTIVIT W/MINERALS TAB (THERAGRAN M) PO SCH (06:04)
[2017-06-19] MEDS: PANTOPRAZOLE 40 MG (PROTONIX) TAB PO SCH (06:04)
[2017-06-19] MEDS: DULoxetine 30 MG (CYMBALTA) CAP PO SCH (07:46)
[2017-06-19] MEDS: OXYBUTYNIN (DITROPAN) 5 MG TAB PO SCH ×2 (07:47→21:18)
[2017-06-19] MEDS: DOCUSATE SODIUM 100 MG (COLACE) CAP PO SCH (07:47)
[2017-06-19] MEDS: FOLIC ACID 1 MG TAB PO SCH (07:47)
[2017-06-19] MEDS: ASPIRIN E.C. 325 MG (ECOTRIN) TABLET PO SCH (07:47)
[2017-06-19] MEDS: VITAMIN D3 1,000 UNITS (CHOLECALCIFEROL) TABLET PO SCH (07:47)
[2017-06-19] MEDS: PREGABALIN 75 MG (LYRICA) CAP PO SCH (07:47)
[2017-06-19] MEDS: LORATADINE (CLARITIN) 10 MG TAB PO SCH (07:47)
[2017-06-19] MEDS: amLODIPine 5 MG (NORVASC) TAB PO SCH (07:47)
[2017-06-19] MEDS: meTOprolol TARTRATE 50 MG (LOPRESSOR) TAB PO SCH ×2 (07:47→21:17)
[2017-06-19] MEDS: lisINopril 20 MG (ZESTRIL) TAB PO SCH (07:47)
[2017-06-19] MEDS: DICLOFENAC SOD 75 MG (VOLTAREN) TAB NON-FORMULARY PO SCH (07:48)
[2017-06-19] MEDS: TRIAMCINOLONE 0.1% CR (KENALOG) 15 GM TUBE TOP SCH ×2 (07:49→21:18)
[2017-06-19] MEDS: RIVASTIGMINE 4.6 MG PATCH (EXELON) TD SCH (07:49)
[2017-06-19] MEDS ORDERED: PATCH REMOVAL TP SCH (09:00)
[2017-06-19] MEDS: HYDROcodone/APAP 5 MG/325 MG (LORTAB) TAB PO PRN ×2 (09:31→15:00)
--- NOTE | 2017-06-19 10:12 | Physical Therapy Daily Note ---
PT Daily Note-Current Subjective Pt sitting up in bed upon arrival. Pt agrees to PT. Pain Numeric Pain Scale: 8 Location: Incisional Location Body Site: Abdomen Pain Description: Ache, Tightness Mental Status Patient Orientation: Person, Place, Time, Situation Transfers Functional [place] Measure 0=Not Assessed/NA 4=Minimal Assistance 1=Total Assistance 5=Supervision or Setup 2=Maximal Assistance 6=Modified [place] 3=Moderate Assistance 7=Complete IndependenceIRFPAI Quality Coding Scale 6 Independent with activity with or without an assistive device 5 Patient requires set up or clean up by helper. Patient completes activity by themselves 4 Supervision or touching assist (CGA). [place] provide cues , steadying assist 3 The helper provides less than half the effort to complete the activity 2 The helper provides more than half the effort to complete the activity 1 Dependent. The helper does all the effort to complete an activity 7 Patient refused to complete or attempt activity 9 The patient did not perform the activity before the current illness or injury 88 Not attempted due to Medical conditions or safety concerns Scootin Supine to/from Sit: 5 Sit to/from Stand: 5 Sit to Lying (QC): 5 Sit to Stand (QC): 5 Weight Bearing Right Lower Extremity: Right Full Weight Bearing Left Lower Extremity: Left Full Weight Bearing Gait Training Does the Patient Walk?: Yes Distance (FIM): 3=150 ft Distance: 200' Walk 10 feet (QC): 5 Walk 50 ft with 2 Turns(QC): 5 Walk 150 ft (QC): 5 Gait Level of Assist: 5 Gait Persons Needed: 1 Gait Assistive Device: FWW Pt fatigues during ambualtion and needs a couple of standing rest breaks. Pt's gait has slight IR of L hip. Wheelchair Training Does the Pt Use a Wheelchair?: No Exercises NuStep Minutes: 10 NuStep Workload: 5 Treatments Pt transfers from Supine to EOB to Standing using FWW at SBA. Pt ambulates in hallway using FWW at SBA. Pt uses NuStep for 10m at Workload 5. Pt ambulates again in hallway before returning to room. Pt transfers back into bed to rest at SBA. Pt resting with all needs met at end of tx. Assessment Current Status: Good Progress Pt fatigues easy while ambulating but able to recover quickly with standing rest break. Pt reports increased pain with activity. PT Short Term Goals Short Term Goals Time Frame: Jun 23, 2017 Transfers (B,C,W/C) (FIM): 5 Gait (FIM): 2 Distance (FIM): 5=953-06 ft Gait Distance Comment: 100 feet Gait Level of Assist: 5 Gait Assistive Device: FWW Stairs (FIM): 2 # of Steps: 4 Stairs Level of Assist: 4 PT Hand Patcher Goals Custodial Goals PT Hand Patcher Goals Time Frame: Jul 07, 2017 Transfers (B,C,W/C) (FIM): 6 Sit to Lying (QC): 6 Lying-Sitting on Side/Bed(QC): 6 Sit to Stand (QC): 6 Rollin Roll Left to Right (QC): 6 Chair/[id number]-Rxukb Xfer(QC): 6 Car Transfer (QC): 6 Does the Patient Walk: Yes Gait (FIM): 6 Distance: 200 feet Walk 10 feet (QC): 6 Walk 10ft-Uneven Surface(QC): 6 Walk 50ft with 2 Turns (QC): 6 Walk 150 ft (QC): 6 Gait Level of Assist: 6 Gait Assistive Device: FWW Does the Pt use WC or Scooter?: No Stairs (FIM): 5 # of Steps: 12 1 Step (curb) (QC): 4 4 Steps (QC): 4 12 Steps (QC): 4 Stairs Level Of Assist: 5 Picking up an Object (QC): 4 PT Plan Problem List Problem List: Activity Tolerance, Functional Strength, Safety, Gait Treatment/Plan Treatment Plan: Continue Plan of Care Treatment Plan: Bed Mobility, Education, Functional Activity Darrel, Functional Strength, Group Therapy, Gait, Safety, Therapeutic Exercise, Transfers Treatment Duration: Jul 07, 2017 Frequency: At least 5 of 7 days/Wk (IRF) Estimated Hrs Per Day: 1.5 hours per day Patient and/or Family Agrees t: Yes Safety Risks/Education Patient Education: Gait Training, Transfer Techniques, Correct Positioning, Safety Issues Teaching Recipient: Patient Teaching Methods: Discussion Response to Teaching: Verbalize Understanding Time/GCodes Time In: 915 Time Out: 1000 Total Billed Treatment Time: 45 Total Billed Treatment 1, GT (20m), EX (15m) & FA (10m) BILLY ROMERO PTA Jun 19, 2017 10:12
--- NOTE | 2017-06-19 15:21 | Therapy Group Daily Note ---
Therapy Daily Group Note Patient Education Topic Other List Below (Memory Strategies) Exercises LE Seated Exercise, UE Exercise Other/Notes Pt transfers from Supine to Standing using FWW and ambulates to Group at [facility]. PT/OT Group consisted of Introductions (Name, Where you are from & Naming a list of 3 items given for memory), Socialization, UE & LE Exercises, Education over Memory Strategies and a Couple of Memory Strategy Activities. Pt actively participated in Group by completing UE & LE Exercises as well as giving personal strategies the pt uses to help remember tasks. Pt also participated in the 2 Memory Strategy Activities as well. Pt ambulated back to room to rest at the of Group with all needs met. Start Time: 13:00 Stop Time: 14:20 Total Billed Treatment Time: 80 Total Billed Treatment 1, GROUP (80m) BILLY ROMERO DIRECTOR OF SOFTWARE DEVELOPMENT Jun 19, 2017 15:21
--- NOTE | 2017-06-19 16:57 | Occupational Ther Daily Note ---
OT Current Status-Daily Note Subjective Pt. states that she is tired and sore. Does not state a pain number. Appearance Pt. declines showering but agrees to work with OT. Mental Status/Objective Patient Orientation: Person, Place, Time, Situation Functional [place] Measure 0=Not Assessed/NA 4=Minimal Assistance 1=Total Assistance 5=Supervision or Setup 2=Maximal Assistance 6=Modified [place] 3=Moderate Assistance 7=Complete [place] ADL-Treatment Functional [place] Measure 0=Not Assessed/NA 4=Minimal Assistance 1=Total Assistance 5=Supervision or Setup 2=Maximal Assistance 6=Modified [place] 3=Moderate Assistance 7=Complete IndependenceIRFPAI Quality Coding Scale 6 Independent with activity with or without an assistive device 5 Patient requires set up or clean up by helper. Patient completes activity by themselves 4 Supervision or touching assist (CGA). [place] provide cues , steadying assist 3 The helper provides less than half the effort to complete the activity 2 The helper provides more than half the effort to complete the activity 1 Dependent. The helper does all the effort to complete an activity 7 Patient refused to complete or attempt activity 9 The patient did not perform the activity before the current illness or injury 88 Not attempted due to Medical conditions or safety concerns Transfers (B, C, W/C) (FIM): 5 (Pt. is able to transfer to side of bed and then to ambulate to wheelchair with SBA. Pt. requests wheelchair because she has been in PT and is tired.) Other Treatment Pt. states that she is tired. Requests to use wheelchair. Went to therapy gym. Completed UE exercises with armbike x 15 minutes with several brief rest breaks at min resistance, and then various fine motor coordination and strengthening tasks with 1 lb. wrist weights on. Pt. states that she has to gain strength, but other than that, does not feel that she is having trouble with anything else. Pt. went back to room via wheelchair and all needs met. Transferred back to bed with SBA. Education OT Patient Education: Correct positioning, Exercise program, Modified ADL techniques, Progress toward Goal/Update tx plan, Purpose of tx/functional activities, Reviewed precautions, Rehab process, Transfer techniques Teaching Recipient: Patient Teaching Methods: Demonstration, Discussion Response to Teaching: Verbalize Understanding, Return Demonstration OT Short Term Goals Short Term Goals Transfers (B,C,W/C) (FIM): 5 1=Demonstrate adherence to instructed precautions during ADL tasks. 2=Patient will verbalize/demonstrate understanding of assistive devices/ modifications for ADL. 3=Patient will improve strength/tolerance for activity to enable patient to perform ADL's. OT Ore Dressing Engineer Goals Ore Dressing Engineer Goals Time Frame: Jun 30, 2017 Eating (FIM): 7 Eating (QC): 6 Groomin Oral Hygiene (QC): 6 (If dentures are here) Bathing(FIM): 6 Shower/Bathe Self (QC): 6 Upper Body Dressing(FIM): 6 Upper Body Dressing (QC): 6 Lower Body Dressing(FIM): 6 Lower Body Dressing (QC): 6 On/Off Footwear (QC): 6 Toileting(FIM): 6 Toileting Hygiene (QC): 6 Toilet/Commode Transfer(FIM): 6 Toilet/Commode Transfer (QC): 6 Tub Transfer(FIM): 6 Shower Transfer(FIM): 6 Additional Goals: 1-Demonstrate ADL Tasks, 2-Verbalize Understanding, 3- ImproveStrength/Darrel 1=Demonstrate adherence to instructed precautions during ADL tasks. 2=Patient will verbalize/demonstrate understanding of assistive devices/ modifications for ADL. 3=Patient will improve strength/tolerance for activity to enable patient to perform ADL's. OT Education/Plan Problem List/Assessment Assessment: Decreased Activ Tolerance Pt would benefit from skilled OT to increase her independence in basic self care to allow her to safely return to her home and to decrease caregiver burden Discharge Recommendations Plan/Recommendations: Continue POC Therapy D/C Recommendations: Home w/ Family Support Treatment Plan/Plan of Care Treatment,Training & Education: Yes Patient would benefit from OT for education, treatment and training to promote independence in ADL's, mobility, safety and/or upper extremity function for ADL' s. Plan of Care: ADL Retraining, Functional Mobility, Group Exercise/Act as Ind ( education, exercise, socialization, activity tolerance, funct activities), UE Funct Exercise/Act, UE Neuromus Re-Ed/Coord Treatment Duration: Jun 30, 2017 Frequency: At least 5 of 7 days/Wk (IRF) Estimated Hrs Per Day: 1.5 hours per day Agreement: Yes Rehab Potential: Good Time/GCodes Start Time: 10:15 Stop Time: 11:15 Total Time Billed (hr/min): 60 Billed Treatment Time 1, ADL x 4 SAVAGE AVENDANO OT Jun 19, 2017 16:57
[2017-06-19 18:00] VITALS: BP 113/70
[2017-06-19] MEDS: ATORVASTATIN 40 MG (LIPITOR) TABLET PO SCH (21:17)
[2017-06-20 06:00] VITALS: BP 111/65
[2017-06-20] MEDS: MULTIVIT W/MINERALS TAB (THERAGRAN M) PO SCH (06:04)
[2017-06-20] MEDS: PANTOPRAZOLE 40 MG (PROTONIX) TAB PO SCH (06:04)
[2017-06-20] MEDS: DULoxetine 30 MG (CYMBALTA) CAP PO SCH (08:14)
[2017-06-20] MEDS: ASPIRIN E.C. 325 MG (ECOTRIN) TABLET PO SCH (08:14)
[2017-06-20] MEDS: HYDROcodone/APAP 5 MG/325 MG (LORTAB) TAB PO PRN ×2 (08:15→13:27)
[2017-06-20] MEDS: amLODIPine 5 MG (NORVASC) TAB PO SCH (08:15)
[2017-06-20] MEDS: FOLIC ACID 1 MG TAB PO SCH (08:15)
[2017-06-20] MEDS: lisINopril 20 MG (ZESTRIL) TAB PO SCH (08:15)
[2017-06-20] MEDS: DOCUSATE SODIUM 100 MG (COLACE) CAP PO SCH (08:16)
[2017-06-20] MEDS: TRIAMCINOLONE 0.1% CR (KENALOG) 15 GM TUBE TOP SCH ×2 (08:16→19:58)
[2017-06-20] MEDS: RIVASTIGMINE 4.6 MG PATCH (EXELON) TD SCH (08:16)
[2017-06-20] MEDS: DICLOFENAC SOD 75 MG (VOLTAREN) TAB NON-FORMULARY PO SCH (08:17)
[2017-06-20] MEDS: LORATADINE (CLARITIN) 10 MG TAB PO SCH (08:21)
[2017-06-20] MEDS: PREGABALIN 75 MG (LYRICA) CAP PO SCH (08:22)
[2017-06-20] MEDS: meTOprolol TARTRATE 50 MG (LOPRESSOR) TAB PO SCH ×2 (08:22→19:58)
[2017-06-20] MEDS: OXYBUTYNIN (DITROPAN) 5 MG TAB PO SCH ×2 (08:22→19:58)
[2017-06-20] MEDS: VITAMIN D3 1,000 UNITS (CHOLECALCIFEROL) TABLET PO SCH (08:22)
--- NOTE | 2017-06-20 11:15 | Occupational Ther Daily Note ---
OT Current Status-Daily Note Subjective Pt in bed, agrees to treatment. Pt reports incisional pain, but does not rate. Mental Status/Objective Functional [place] Measure 0=Not Assessed/NA 4=Minimal Assistance 1=Total Assistance 5=Supervision or Setup 2=Maximal Assistance 6=Modified [place] 3=Moderate Assistance 7=Complete [place] ADL-Treatment Pt declined shower today, agrees to sponge bath. Supine to sit with supervision. Pt completed sponge bath seated EOB. Upper body bathing completed with set up. Pt bathed lower body with SBA for balance while washing buttocks and jeanne area. Don pullover shirt with set up. Pt donned Depends and pants with SBA. Don socks with set up while seated EOB. Assisted pt to comb hair and put up in ponytail; pt states this is prior level for her. Pt requires increased time for ADL tasks. Takes occasional rest breaks secondary to fatigue. Functional [place] Measure 0=Not Assessed/NA 4=Minimal Assistance 1=Total Assistance 5=Supervision or Setup 2=Maximal Assistance 6=Modified [place] 3=Moderate Assistance 7=Complete IndependenceIRFPAI Quality Coding Scale 6 Independent with activity with or without an assistive device 5 Patient requires set up or clean up by helper. Patient completes activity by themselves 4 Supervision or touching assist (CGA). [place] provide cues , steadying assist 3 The helper provides less than half the effort to complete the activity 2 The helper provides more than half the effort to complete the activity 1 Dependent. The helper does all the effort to complete an activity 7 Patient refused to complete or attempt activity 9 The patient did not perform the activity before the current illness or injury 88 Not attempted due to Medical conditions or safety concerns Bathing (FIM): 5 Shower/Bathe Self (QC): 4 Upper Body (FIM): 5 Lower Body Dressing (FIM): 5 Other Treatment Gait to therapy gym with FWW, slow pace, but no LOB noted. Arm bike [id number] to increase overall strength and activity tolerance needed for functional tasks. Pt completed activity with minimal resistance and slow pace. One rest break taken during task. Graded clothespin activity with bilateral hands to increase assistant guest services manager/pinch strength. Pt completed fine motor task with nuts and bolts with 1# weights in place to increase strength and coordination skills. Pt fatigues during task and requires occasional rest breaks. Putty activity with bilateral hands to increase strength and manipulation skills. Pt able to remove small beads from putty with increased time. Pt in bed with needs met after session. OT Short Term Goals Short Term Goals Transfers (B,C,W/C) (FIM): 5 1=Demonstrate adherence to instructed precautions during ADL tasks. 2=Patient will verbalize/demonstrate understanding of assistive devices/ modifications for ADL. 3=Patient will improve strength/tolerance for activity to enable patient to perform ADL's. OT Construction Cost Estimator Goals Intermediate Goals Time Frame: Jun 30, 2017 Eating (FIM): 7 Eating (QC): 6 Groomin Oral Hygiene (QC): 6 (If dentures are here) Bathing(FIM): 6 Shower/Bathe Self (QC): 6 Upper Body Dressing(FIM): 6 Upper Body Dressing (QC): 6 Lower Body Dressing(FIM): 6 Lower Body Dressing (QC): 6 On/Off Footwear (QC): 6 Toileting(FIM): 6 Toileting Hygiene (QC): 6 Toilet/Commode Transfer(FIM): 6 Toilet/Commode Transfer (QC): 6 Tub Transfer(FIM): 6 Shower Transfer(FIM): 6 Additional Goals: 1-Demonstrate ADL Tasks, 2-Verbalize Understanding, 3- ImproveStrength/Darrel 1=Demonstrate adherence to instructed precautions during ADL tasks. 2=Patient will verbalize/demonstrate understanding of assistive devices/ modifications for ADL. 3=Patient will improve strength/tolerance for activity to enable patient to perform ADL's. OT Education/Plan Problem List/Assessment Pt would benefit from skilled OT to increase her independence in basic self care to allow her to safely return to her home and to decrease caregiver burden Discharge Recommendations Plan/Recommendations: Continue POC Treatment Plan/Plan of Care Patient would benefit from OT for education, treatment and training to promote independence in ADL's, mobility, safety and/or upper extremity function for ADL' s. Plan of Care: ADL Retraining, Functional Mobility, Group Exercise/Act as Ind ( education, exercise, socialization, activity tolerance, funct activities), UE Funct Exercise/Act, UE Neuromus Re-Ed/Coord Treatment Duration: Jun 30, 2017 Frequency: At least 5 of 7 days/Wk (IRF) Estimated Hrs Per Day: 1.5 hours per day Agreement: Yes Rehab Potential: Good Time/GCodes Start Time: 09:00 Stop Time: 10:30 Total Time Billed (hr/min): 90 Billed Treatment Time 1 visit, ADLx3(45minutes), EXx3(45minutes) ANALIA LANE OT Jun 20, 2017 11:15
--- NOTE | 2017-06-20 11:59 | Physical Therapy Daily Note ---
PT Daily Note-Current Subjective Pt. agrees to Rx . States she is feeling stronger all the time but is fatigued at this time from OT, but is happy she is doing better. Pain Numeric Pain Scale: 3 Location: Medial, Incisional Location Body Site: Abdomen Pain Description: Tightness Mental Status Patient Orientation: Normal For Age Transfers Functional [place] Measure 0=Not Assessed/NA 4=Minimal Assistance 1=Total Assistance 5=Supervision or Setup 2=Maximal Assistance 6=Modified [place] 3=Moderate Assistance 7=Complete IndependenceIRFPAI Quality Coding Scale 6 Independent with activity with or without an assistive device 5 Patient requires set up or clean up by helper. Patient completes activity by themselves 4 Supervision or touching assist (CGA). [place] provide cues , steadying assist 3 The helper provides less than half the effort to complete the activity 2 The helper provides more than half the effort to complete the activity 1 Dependent. The helper does all the effort to complete an activity 7 Patient refused to complete or attempt activity 9 The patient did not perform the activity before the current illness or injury 88 Not attempted due to Medical conditions or safety concerns Transfers (B, C, W/C) (FIM): 5 Scootin Rollin Supine to/from Sit: 6 Sit to/from Stand: 5 Weight Bearing Right Lower Extremity: Right Full Weight Bearing Left Lower Extremity: Left Full Weight Bearing Gait Training Does the Patient Walk?: Yes Gait (FIM): 5 Distance (FIM): 3=150 ft (x3) Gait Level of Assist: 5 Gait Persons Needed: 1 Gait Assistive Device: FWW fatigues and rests after approx 150 ft. Wheelchair Training Does the Pt Use a Wheelchair?: No Stair Training Stair Training: Handrails/: 2 handrails Stairs (FIM): 5 #of Steps: 4 Stairs: Pattern: Step to Level of Assist: 5 Exercises Supine Ex: Bridging, Ankle pumps, Quad Set, Rolling, Glut sets, Heel Slides, Short Arc Quads, Scooting, Straight leg raise, Hip abd/add Supine Reps: 15 Seated Therapy Exercises: Ankle pumps, Sit to stand, Long arc quads, Hip flexion Seated Reps: 15 NuStep Minutes: 8 NuStep Workload: 3 Assessment Current Status: Good Progress PT Short Term Goals Short Term Goals Time Frame: Jun 23, 2017 Transfers (B,C,W/C) (FIM): 5 Gait (FIM): 2 Distance (FIM): 2=607-28 ft Gait Distance Comment: 100 feet Gait Level of Assist: 5 Gait Assistive Device: FWW Stairs (FIM): 2 # of Steps: 4 Stairs Level of Assist: 4 PT Bicycle Service Technician Goals Bicycle Service Technician Goals PT Bicycle Service Technician Goals Time Frame: Jul 07, 2017 Transfers (B,C,W/C) (FIM): 6 Sit to Lying (QC): 6 Lying-Sitting on Side/Bed(QC): 6 Sit to Stand (QC): 6 Rollin Roll Left to Right (QC): 6 Chair/Hox-dk-Xszlo Xfer(QC): 6 Car Transfer (QC): 6 Does the Patient Walk: Yes Gait (FIM): 6 Distance: 200 feet Walk 10 feet (QC): 6 Walk 10ft-Uneven Surface(QC): 6 Walk 50ft with 2 Turns (QC): 6 Walk 150 ft (QC): 6 Gait Level of Assist: 6 Gait Assistive Device: FWW Does the Pt use WC or Scooter?: No Stairs (FIM): 5 # of Steps: 12 1 Step (curb) (QC): 4 4 Steps (QC): 4 12 Steps (QC): 4 Stairs Level Of Assist: 5 Picking up an Object (QC): 4 PT Plan Treatment/Plan Treatment Plan: Continue Plan of Care Treatment Plan: Bed Mobility, Education, Functional Activity Darrel, Functional Strength, Group Therapy, Gait, Safety, Therapeutic Exercise, Transfers Treatment Duration: Jul 07, 2017 Frequency: At least 5 of 7 days/Wk (IRF) Estimated Hrs Per Day: 1.5 hours per day Patient and/or Family Agrees t: Yes Safety Risks/Education Patient Education: Gait Training, Transfer Techniques, Steps Teaching Recipient: Patient Teaching Methods: Demonstration, Discussion Response to Teaching: Verbalize Understanding, Return Demonstration, Reinforcement Needed Time/GCodes Time In: 1100 Time Out: 1200 Total Billed Treatment Time: 60 Total Billed Treatment 1,GT15m,FA15m,EX30m G Codes Necessary: KIRA Villalba EVENTS ADMINISTRATIVE ASSISTANT Jun 20, 2017 11:59
--- NOTE | 2017-06-20 13:30 | Physical Therapy Daily Note ---
PT Daily Note-Current Subjective Pt. states she is very tired after morning PT OT Rxs. Pt. agrees to bed mobility and exercise . Pain Numeric Pain Scale: 0-No Pain Mental Status Patient Orientation: Normal For Age Transfers Functional [place] Measure 0=Not Assessed/NA 4=Minimal Assistance 1=Total Assistance 5=Supervision or Setup 2=Maximal Assistance 6=Modified [place] 3=Moderate Assistance 7=Complete IndependenceIRFPAI Quality Coding Scale 6 Independent with activity with or without an assistive device 5 Patient requires set up or clean up by helper. Patient completes activity by themselves 4 Supervision or touching assist (CGA). [place] provide cues , steadying assist 3 The helper provides less than half the effort to complete the activity 2 The helper provides more than half the effort to complete the activity 1 Dependent. The helper does all the effort to complete an activity 7 Patient refused to complete or attempt activity 9 The patient did not perform the activity before the current illness or injury 88 Not attempted due to Medical conditions or safety concerns in out bed and pushes self up in bed indep Weight Bearing Right Lower Extremity: Right Full Weight Bearing Left Lower Extremity: Left Full Weight Bearing Exercises Supine Ex: Bridging, Ankle pumps, Quad Set, Rolling, Glut sets, Heel Slides, Short Arc Quads, Scooting, Straight leg raise, Hip abd/add Supine Reps: 15 sidelying clam shells bilat x 15 Assessment Current Status: Good Progress fatigued PT Short Term Goals Short Term Goals Time Frame: Jun 23, 2017 Transfers (B,C,W/C) (FIM): 5 Gait (FIM): 2 Distance (FIM): 5=847-15 ft Gait Distance Comment: 100 feet Gait Level of Assist: 5 Gait Assistive Device: FWW Stairs (FIM): 2 # of Steps: 4 Stairs Level of Assist: 4 PT Shelter Goals Photonics Engineer Goals PT Shelter Goals Time Frame: Jul 07, 2017 Transfers (B,C,W/C) (FIM): 6 Sit to Lying (QC): 6 Lying-Sitting on Side/Bed(QC): 6 Sit to Stand (QC): 6 Rollin Roll Left to Right (QC): 6 Chair/Dde-ph-Bptch Xfer(QC): 6 Car Transfer (QC): 6 Does the Patient Walk: Yes Gait (FIM): 6 Distance: 200 feet Walk 10 feet (QC): 6 Walk 10ft-Uneven Surface(QC): 6 Walk 50ft with 2 Turns (QC): 6 Walk 150 ft (QC): 6 Gait Level of Assist: 6 Gait Assistive Device: FWW Does the Pt use WC or Scooter?: No Stairs (FIM): 5 # of Steps: 12 1 Step (curb) (QC): 4 4 Steps (QC): 4 12 Steps (QC): 4 Stairs Level Of Assist: 5 Picking up an Object (QC): 4 PT Plan Treatment/Plan Treatment Plan: Continue Plan of Care Treatment Plan: Bed Mobility, Education, Functional Activity Darrel, Functional Strength, Group Therapy, Gait, Safety, Therapeutic Exercise, Transfers Treatment Duration: Jul 07, 2017 Frequency: At least 5 of 7 days/Wk (IRF) Estimated Hrs Per Day: 1.5 hours per day Patient and/or Family Agrees t: Yes Safety Risks/Education Patient Education: Transfer Techniques, Correct Positioning, Safety Issues Teaching Recipient: Patient Teaching Methods: Demonstration, Discussion Response to Teaching: Verbalize Understanding, Return Demonstration Time/GCodes Time In: 1300 Time Out: 1330 Total Billed Treatment Time: 30 Total Billed Treatment 1,EX30m G Codes Necessary: KIRA Villalba CARTOGRAPHIC ENGINEER Jun 20, 2017 13:30
--- NOTE | 2017-06-20 18:08 | PM & R (SOAP) Progress Note ---
Subjective Time Seen by Provider: 18:00 Subjective/Events-last exam Patient was seen in her room this evening Patient progressing well with therapies Patient reports eating OK.Patinet Min assist for transfers and SBA for dressing Review of Systems Neurological: Weakness Objective Exam Last Set of Vital Signs Vital Signs Date Time Temp Pulse Resp B/P (MAP) Pulse Ox O2 Delivery O2 Flow Rate FiO2 06/20/17 08:16 93 Room Air 06/20/17 06:00 96.0 64 18 111/65 (80) Capillary Refill : I&O Intake and Output 06/20/17 00:00 Intake Total 885 ml Balance 885 ml Intake Oral 885 ml # Voids 5 General: Alert, Oriented X3, Cooperative, No Acute Distress HEENT: Atraumatic, PERRLA, EOMI, Mucous Memb Moist/[place] Neck: Supple, No JVD Lungs: Clear to Auscultation Heart: Regular Rate Abdomen: Normal Bowel Sounds, Soft, No Tenderness, Other (Incision site healing well [place] in place no drainage) Extremities: No Edema (Strength UES 4/5 except rt shoulder flex/abduction approx 80 degrees active Strength LLE 4/5 RLE 3+/5 RLE except dorsiflexion 3+/5 ) Assessment/Plan Assessment General debil secondary to Ischemic Bowel D s/p Exploratory lap and excision of ischemic Bowel HTN controlled with meds OA s/p revision RT DWAIN approx 1 year ago CAD s/p PTCA on meds Obesity Remote HX of Tobaccoism Plan Continue PT/OT Team Conference tomorrow 06-21-17 HERNAN BRYAN MD Jun 20, 2017 18:08
--- NOTE | 2017-06-20 18:19 | Individualized Plan of Care ---
Individualized Plan of Care Rehab Nursing IPOC Order Admission Date Jun 16, 2017 at 13:40 Current Orders Orders Admission-Acute Rehab Unit (06/16/17 13:59) Vital Signs: Routine 08,16,00 (06/16/17 13:59) Sequential Compression Device 08,20 (06/16/17 13:59) Plant General Manager-Inpt Rehab (06/16/17 13:59) Rehab Nursing Orders-Ipoc (06/16/17 13:59) Physical Therapy Rehab Orders (06/16/17 13:59) Occupational Therapy Rehab Ord (06/16/17 13:59) Speech Therapy Rehab Orders (06/16/17 13:59) General/Regular (06/16/17 Dinner) Turn And Reposition Q2HR (06/16/17 13:59) Intake & Output 06,14,22 (06/16/17 13:59) Precautions (Aru) (06/16/17 13:59) Weekly Weight (Lbs) WEEK (06/16/17 13:59) Cbc With Automated Diff (06/17/17 06:00) Comprehensive Metabolic Panel (06/17/17 06:00) Consult Physician (06/16/17 14:05) Patient Visit (06/16/17 ) Speech Sound Lang Comp (06/16/17 ) Acetaminophen Tablet/Caplet (Tylenol T (06/16/17 14:15) Albuterol Common Canister (Ventolin Hfa (06/16/17 18:00) Amlodipine Tablet (Norvasc Tablet) (06/17/17 09:00) Aspirin Enteric Coated Tablet (Ecotrin T (06/17/17 09:00) Cholecalciferol Capsule/Tablet (Vitamin (06/17/17 09:00) Docusate Sodium Capsule (Colace Capsule) (06/17/17 09:00) Duloxetine Capsule (Cymbalta Capsule) (06/17/17 09:00) Famotidine Tablet (Pepcid Tablet) (06/16/17 14:15) Folic Acid Tablet (Folic Acid Tablet) (06/17/17 09:00) Hydrocodone/Apap 5/325 Tablet (Lortab 5 (06/16/17 14:15) Camphor/Menthol/Phenol (Blistex Lip Oint (06/16/17 14:15) Lisinopril Tablet (Zestril Tablet) (06/17/17 09:00) Loratadine Tablet (Claritin Tablet) (06/17/17 09:00) Metoprolol Tartrate (Ir) Tab (Lopressor (06/16/17 21:00) Therapeutic Multivitamin Tab (Vitamins, (06/17/17 07:00) Oxybutynin Tablet (Ditropan Tablet) (06/16/17 21:00) Pantoprazole Tablet (Protonix Tablet) (06/17/17 07:00) Pregabalin Capsule (Lyrica Capsule) (06/17/17 09:00) Temazepam Capsule (Restoril Capsule) (06/16/17 14:15) Triamcinolone 0.1% Cream 15 Gm (Kenalog (06/16/17 21:00) Pharmacy Communication (Pharmacy Communi (06/16/17 14:15) Follow-Up Appointment (06/16/17 14:39) Albuterol Pre-Mix Nebs (Rt) (Proventil (06/16/17 18:00) Ambulate TID (06/16/17 14:58) Sequential Compression Device 08,20 (06/16/17 14:58) Dvt/Vte Risk - Notifiy Physici (06/16/17 14:58) Lipid Panel (06/17/17 05:00) Atorvastatin Tablet (Lipitor) (06/17/17 21:00) Patient Visit (06/17/17 ) Exercise Therap, Ea 15 Min (06/17/17 ) Functional Activities, Ea 15 (06/17/17 ) Gait Training, Ea 15 Min (06/17/17 ) Albuterol Pre-Mix Nebs (Rt) (Proventil (06/17/17 14:30) Loperamide Capsule (Imodium Capsule) (06/17/17 14:30) Diclofenac (Non-Formulary) (Voltaren (No (06/18/17 13:49) Rivastigmine (Non-Formulary) (Exelon Pat (06/18/17 13:58) Patch Removal (Patch Removal) (06/19/17 09:00) Patient Visit (06/19/17 ) Gait Training, Ea 15 Min (06/19/17 ) Exercise Therap, Ea 15 Min (06/19/17 ) Functional Activities, Ea 15 (06/19/17 ) Therapeutic, Group (06/19/17 ) Patient Visit (06/20/17 ) Gait Training, Ea 15 Min (06/20/17 ) Functional Activities, Ea 15 (06/20/17 ) Exercise Therap, Ea 15 Min (06/20/17 ) Rehab Nursing Orders: Diseage Management, Nutrition Management Other Nursing Orders: Monitor for any postop urinary retention or constipation PT IPOC Problem List: Activity Tolerance, Functional Strength, Safety, Gait Treatment Plan: Continue Plan of Care Bed Mobility, Education, Functional Activity Darrel, Functional Strength, Group Therapy, Gait, Safety, Therapeutic Exercise, Transfers Treatment Duration: Jul 07, 2017 Frequency: At least 5 of 7 days/Wk (IRF) Estimated Hrs Per Day: 1.5 hours per day OT IPOC Problems: Decreased Activ Tolerance OT Treatment, Training and Edu: Yes OT Problems Pt would benefit from skilled OT to increase her independence in basic self care to allow her to safely return to her home and to decrease caregiver burden Plan of Care: ADL Retraining, Functional Mobility, Group Exercise/Act as Ind ( education, exercise, socialization, activity tolerance, funct activities), UE Funct Exercise/Act, UE Neuromus Re-Ed/Coord Treatment Duration: Jun 30, 2017 Frequency: At least 5 of 7 days/Wk (IRF) Estimated Hrs Per Day: 1.[address] IPOC Speech Therapy Treatment Plan: Discontinue ST Treatment Duration: Jun 20, 2017 Frequency: Modified Program (IRF) Estimated Hrs Per Day: Other Plant General Manager/Case Mgmt Plant General Manager/Case Managemen: Discharge Planning, Patient/Family Counseling Physician IPOC Medical Issues being managed closely and that require the 24 hour availability of a physician:HTN HLP CAD Medical Issues: Bowel/Bladder Function, DVT Prophylaxis, Falls Precautions, Fluid/Electrolyte/Nutrition Balance, Infection Protection, Pain Management, Wound Care, Other (List) (as per above) Brief Synthesis of Preadmission Screen, Post-Admission Evaluation, and Therapy Evaluations: 61 yo female who had been living alone Modified Independent with a walker who had exploratory lap and excision of ischemic bowel at OSH.Referrred here for ongoing rehab Lives in [facility].PMH HTN CAD S/P PTCA on meds OA s/p revision RT DWAIN approx i year ago Medical Prognosis: Good Anticipated Length of Stay: 06-30-2017 Rehab Goals Modified Independent for adls and mobility skills C CODE 16 Etiologic DX Ischemic Bowel D. Anticipated discharge destinat: Home with [facility] HERNAN BRYAN MD Jun 20, 2017 18:19
[2017-06-20 19:09] VITALS: BP 121/72
[2017-06-20] MEDS: ATORVASTATIN 40 MG (LIPITOR) TABLET PO SCH (19:58)
[2017-06-21] MEDS: PANTOPRAZOLE 40 MG (PROTONIX) TAB PO SCH (06:05)
[2017-06-21] MEDS: MULTIVIT W/MINERALS TAB (THERAGRAN M) PO SCH (06:05)
[2017-06-21 06:28] VITALS: BP 123/81
[2017-06-21] MEDS: VITAMIN D3 1,000 UNITS (CHOLECALCIFEROL) TABLET PO SCH (08:43)
[2017-06-21] MEDS: DULoxetine 30 MG (CYMBALTA) CAP PO SCH (08:43)
[2017-06-21] MEDS: LORATADINE (CLARITIN) 10 MG TAB PO SCH (08:44)
[2017-06-21] MEDS: ASPIRIN E.C. 325 MG (ECOTRIN) TABLET PO SCH (08:44)
[2017-06-21] MEDS: HYDROcodone/APAP 5 MG/325 MG (LORTAB) TAB PO PRN ×2 (08:44→18:16)
[2017-06-21] MEDS: lisINopril 20 MG (ZESTRIL) TAB PO SCH (08:44)
[2017-06-21] MEDS: DOCUSATE SODIUM 100 MG (COLACE) CAP PO SCH (08:44)
[2017-06-21] MEDS: OXYBUTYNIN (DITROPAN) 5 MG TAB PO SCH ×2 (08:44→20:38)
[2017-06-21] MEDS: amLODIPine 5 MG (NORVASC) TAB PO SCH (08:44)
[2017-06-21] MEDS: FOLIC ACID 1 MG TAB PO SCH (08:44)
[2017-06-21] MEDS: PREGABALIN 75 MG (LYRICA) CAP PO SCH (08:44)
[2017-06-21] MEDS: meTOprolol TARTRATE 50 MG (LOPRESSOR) TAB PO SCH ×2 (08:45→20:38)
[2017-06-21] MEDS: DICLOFENAC SOD 75 MG (VOLTAREN) TAB NON-FORMULARY PO SCH (08:46)
[2017-06-21] MEDS: TRIAMCINOLONE 0.1% CR (KENALOG) 15 GM TUBE TOP SCH ×2 (08:46→20:39)
[2017-06-21] MEDS: RIVASTIGMINE 4.6 MG PATCH (EXELON) TD SCH (08:46)
--- NOTE | 2017-06-21 08:52 | Physical Therapy Daily Note ---
PT Daily Note-Current Subjective Pt. states she is "ok", didnt sleep very well. States with her nervous condition she always rests and sleeps much better at home. Anxious to go home and feels Monday would be a good day to shoot for. Has a lot of help at home. Pain Numeric Pain Scale: 3 Location: Incisional Location Body Site: Abdomen Pain Description: Ache Mental Status Patient Orientation: Normal For Age Transfers Functional [place] Measure 0=Not Assessed/NA 4=Minimal Assistance 1=Total Assistance 5=Supervision or Setup 2=Maximal Assistance 6=Modified [place] 3=Moderate Assistance 7=Complete IndependenceIRFPAI Quality Coding Scale 6 Independent with activity with or without an assistive device 5 Patient requires set up or clean up by helper. Patient completes activity by themselves 4 Supervision or touching assist (CGA). [place] provide cues , steadying assist 3 The helper provides less than half the effort to complete the activity 2 The helper provides more than half the effort to complete the activity 1 Dependent. The helper does all the effort to complete an activity 7 Patient refused to complete or attempt activity 9 The patient did not perform the activity before the current illness or injury 88 Not attempted due to Medical conditions or safety concerns Transfers (B, C, W/C) (FIM): 6 Scootin Rollin Supine to/from Sit: 6 Sit to/from Stand: 6 Bed to/from Chair: 6 Weight Bearing Right Lower Extremity: Right Full Weight Bearing Left Lower Extremity: Left Full Weight Bearing Gait Training Does the Patient Walk?: Yes Gait (FIM): 5 Distance (FIM): 3=150 ft (x2, 100x1) Gait Level of Assist: 5 Gait Persons Needed: 1 Gait Assistive Device: FWW has some foot drop R foot but manages well compensating with increased hip flex Stair Training Stair Training: Handrails/: 2 handrails Stairs (FIM): 5 #of Steps: 4 Stairs: Pattern: Step to Level of Assist: 5 pt. is careful, slow, fatigues with gait and steps Exercises Supine Ex: Bridging, Ankle pumps, Quad Set, Rolling, Glut sets, Heel Slides, Short Arc Quads, Scooting, Straight leg raise (x3 bilat), Hip abd/add (side and supine, clamshells as well) Supine Reps: 15 Seated Therapy Exercises: Ankle pumps, Sit to stand, Long arc quads, Hip flexion Seated Reps: 12 Treatments toileted indep, sits EOB for meal, orders indep Assessment Current Status: Good Progress PT Short Term Goals Short Term Goals Time Frame: Jun 23, 2017 Transfers (B,C,W/C) (FIM): 5 Gait (FIM): 2 Distance (FIM): 7=532-75 ft Gait Distance Comment: 100 feet Gait Level of Assist: 5 Gait Assistive Device: FWW Stairs (FIM): 2 # of Steps: 4 Stairs Level of Assist: 4 PT Prison Goals Prison Goals PT Prison Goals Time Frame: Jul 07, 2017 Transfers (B,C,W/C) (FIM): 6 Sit to Lying (QC): 6 Lying-Sitting on Side/Bed(QC): 6 Sit to Stand (QC): 6 Rollin Roll Left to Right (QC): 6 Chair/Zvw-pv-Izvzu Xfer(QC): 6 Car Transfer (QC): 6 Does the Patient Walk: Yes Gait (FIM): 6 Distance: 200 feet Walk 10 feet (QC): 6 Walk 10ft-Uneven Surface(QC): 6 Walk 50ft with 2 Turns (QC): 6 Walk 150 ft (QC): 6 Gait Level of Assist: 6 Gait Assistive Device: FWW Does the Pt use WC or Scooter?: No Stairs (FIM): 5 # of Steps: 12 1 Step (curb) (QC): 4 4 Steps (QC): 4 12 Steps (QC): 4 Stairs Level Of Assist: 5 Picking up an Object (QC): 4 PT Plan Treatment/Plan Treatment Plan: Continue Plan of Care Treatment Plan: Bed Mobility, Education, Functional Activity Darrel, Functional Strength, Group Therapy, Gait, Safety, Therapeutic Exercise, Transfers Treatment Duration: Jul 07, 2017 Frequency: At least 5 of 7 days/Wk (IRF) Estimated Hrs Per Day: 1.5 hours per day Patient and/or Family Agrees t: Yes Safety Risks/Education Patient Education: Gait Training, Transfer Techniques, Steps, Correct Positioning, Disease Process, Safety Issues Teaching Recipient: Patient Teaching Methods: Demonstration, Discussion Response to Teaching: Verbalize Understanding, Return Demonstration Time/GCodes Time In: 800 Time Out: 900 Total Billed Treatment Time: 60 Total Billed Treatment 1,EX25m,GT15m,FA20m G Codes Necessary: KIRA Villalba PLASTIC PARTS DESIGNER Jun 21, 2017 08:52
--- NOTE | 2017-06-21 09:37 | PM & R (SOAP) Progress Note ---
Subjective Time Seen by Provider: 08:10 Subjective/Events-last exam Patient was seen in her room this AM Patient Modified Independent for transfers Discussed case with RN Patient does c/o mild abdominal pain about incision site Incision site ok [place] in place Review of Systems Gastrointestinal: Abdominal Pain Objective Exam Last Set of Vital Signs Vital Signs Date Time Temp Pulse Resp B/P (MAP) Pulse Ox O2 Delivery O2 Flow Rate FiO2 06/21/17 09:28 Room Air 06/21/17 06:28 98.4 91 17 123/81 (95) 96 Capillary Refill : I&O Intake and Output 06/21/17 00:00 Intake Total 1200 ml Balance 1200 ml Intake Oral 1200 ml # Voids 3 General: Alert, Oriented X3, Cooperative, No Acute Distress HEENT: Atraumatic, PERRLA, EOMI, Mucous Memb Moist/[place] Neck: Supple, No JVD Lungs: Clear to Auscultation Heart: Regular Rate Abdomen: Normal Bowel Sounds, Soft, No Tenderness, Other (Incision site healing well [place] in place no drainage) Extremities: No Edema (Strength UES 4/5 except rt shoulder flex/abduction approx 80 degrees active Strength LLE 4/5 RLE 3+/5 RLE except dorsiflexion 3+/5 ) Assessment/Plan Assessment General debil secondary to Ischemic Bowel D s/p Exploratory lap and excision of ischemic Bowel with mild residual postop pain-Has had BM HTN controlled with meds OA s/p revision RT DWAIN approx 1 year ago CAD s/p PTCA on meds Obesity Remote HX of Tobaccoism Plan Continue PT/OT Team Conference later today-See report for full functional update and POC and ELOS Recheck Labs See orders HERNAN BRYAN MD Jun 21, 2017 09:37
[2017-06-21 12:19] LABS: BASOPHILS % (AUTO) 0 % (0-10); EOSINOPHILS # (AUTO) 0.1 10^3/uL (0.0-0.3); EOSINOPHILS % (AUTO) 2 % (0-10); HEMATOCRIT 33 % (35-52); HEMOGLOBIN 11.1 G/DL (11.5-16.0); LYMPHOCYTES # (AUTO) 1.2 X 10^3 (1.0-4.0); LYMPHOCYTES % (AUTO) 14 % (12-44); MEAN CORPUSCULAR HEMOGLOBIN 30 PG (25-34); MEAN CORPUSCULAR HGB CONC 34 G/DL (32-36); MEAN CORPUSCULAR VOLUME 90 FL (80-99); MEAN PLATELET VOLUME 8.9 FL (7.4-10.4); MONOCYTES # (AUTO) 0.9 X 10^3 (0.0-1.0); MONOCYTES % (AUTO) 11 % (0-12); NEUTROPHILS # (AUTO) 6.1 X 10^3 (1.8-7.8); NEUTROPHILS % (AUTO) 73 % (42-75); PLATELET COUNT 456 10^3/uL (130-400); RED BLOOD COUNT 3.65 10^6/uL (4.35-5.85); WHITE BLOOD COUNT 8.3 10^3/uL (4.3-11.0)
--- NOTE | 2017-06-21 12:38 | Occupational Ther Daily Note ---
OT Current Status-Daily Note Subjective Pt in bed, agrees to treatment. Pt reports 5/10 pain in abdominal incision Mental Status/Objective Functional [place] Measure 0=Not Assessed/NA 4=Minimal Assistance 1=Total Assistance 5=Supervision or Setup 2=Maximal Assistance 6=Modified [place] 3=Moderate Assistance 7=Complete [place] ADL-Treatment Functional [place] Measure 0=Not Assessed/NA 4=Minimal Assistance 1=Total Assistance 5=Supervision or Setup 2=Maximal Assistance 6=Modified [place] 3=Moderate Assistance 7=Complete IndependenceIRFPAI Quality Coding Scale 6 Independent with activity with or without an assistive device 5 Patient requires set up or clean up by helper. Patient completes activity by themselves 4 Supervision or touching assist (CGA). [place] provide cues , steadying assist 3 The helper provides less than half the effort to complete the activity 2 The helper provides more than half the effort to complete the activity 1 Dependent. The helper does all the effort to complete an activity 7 Patient refused to complete or attempt activity 9 The patient did not perform the activity before the current illness or injury 88 Not attempted due to Medical conditions or safety concerns Other Treatment Pt supine to sit with modified independence. Pt declined to participate in any ADLs at this time. Gait to therapy gym ith FWW. Pt completed tabletop peg activity with bilateral UE with 1# weights in place. Pt fatigues with activity and requires occasional rest breaks. Arm bike [id number] to increase overall strength and activity tolerance. Pt completed activity with minimal resistance and slow pace. Occasional rest breaks during activity. Pt reports discomfort in right shoulder secondary to prior injury, so she completed 7 minute on arm bike with left UE only. Graded clothespin activity with bilateral hands to increase news assistant/pinch strength. Pt performed putty activity with bilateral hands to increase strength and manipulation skills. Pt able to remove small beads from putty with increased time. Pt returned to room and completed toilet transfer and toileting with SBA. Pt in bed with needs met after session. OT Short Term Goals Short Term Goals Transfers (B,C,W/C) (FIM): 5 1=Demonstrate adherence to instructed precautions during ADL tasks. 2=Patient will verbalize/demonstrate understanding of assistive devices/ modifications for ADL. 3=Patient will improve strength/tolerance for activity to enable patient to perform ADL's. OT Machine Shorthand Reporter Goals Jail Goals Time Frame: Jun 30, 2017 Eating (FIM): 7 Eating (QC): 6 Groomin Oral Hygiene (QC): 6 (If dentures are here) Bathing(FIM): 6 Shower/Bathe Self (QC): 6 Upper Body Dressing(FIM): 6 Upper Body Dressing (QC): 6 Lower Body Dressing(FIM): 6 Lower Body Dressing (QC): 6 On/Off Footwear (QC): 6 Toileting(FIM): 6 Toileting Hygiene (QC): 6 Toilet/Commode Transfer(FIM): 6 Toilet/Commode Transfer (QC): 6 Tub Transfer(FIM): 6 Shower Transfer(FIM): 6 Additional Goals: 1-Demonstrate ADL Tasks, 2-Verbalize Understanding, 3- ImproveStrength/Darrel 1=Demonstrate adherence to instructed precautions during ADL tasks. 2=Patient will verbalize/demonstrate understanding of assistive devices/ modifications for ADL. 3=Patient will improve strength/tolerance for activity to enable patient to perform ADL's. OT Education/Plan Problem List/Assessment Pt would benefit from skilled OT to increase her independence in basic self care to allow her to safely return to her home and to decrease caregiver burden Discharge Recommendations Plan/Recommendations: Continue POC Treatment Plan/Plan of Care Patient would benefit from OT for education, treatment and training to promote independence in ADL's, mobility, safety and/or upper extremity function for ADL' s. Plan of Care: ADL Retraining, Functional Mobility, Group Exercise/Act as Ind ( education, exercise, socialization, activity tolerance, funct activities), UE Funct Exercise/Act, UE Neuromus Re-Ed/Coord Treatment Duration: Jun 30, 2017 Frequency: At least 5 of 7 days/Wk (IRF) Estimated Hrs Per Day: 1.5 hours per day Agreement: Yes Rehab Potential: Good Time/GCodes Start Time: 09:00 Stop Time: 10:00 Total Time Billed (hr/min): 60 Billed Treatment Time 1 visit, EXx4(60minutes) ANALIA LANE OT Jun 21, 2017 12:38
[2017-06-21 12:50] LABS: ALANINE AMINOTRANSFERASE 12 U/L (0-55); ALBUMIN 2.7 GM/DL (3.2-4.5); ALKALINE PHOSPHATASE 108 U/L (40-136); BILIRUBIN,TOTAL 0.5 MG/DL (0.1-1.0); BUN/CREATININE RATIO 19; CALCIUM 8.3 MG/DL (8.5-10.1); CARBON DIOXIDE 21 MMOL/L (21-32); CHLORIDE 110 MMOL/L (98-107); GFR ESTIMATED > 60; GLUCOSE 119 MG/DL (70-105); POTASSIUM 3.7 MMOL/L (3.6-5.0); SODIUM 143 MMOL/L (135-145); TOTAL PROTEIN 5.8 GM/DL (6.4-8.2)
--- NOTE | 2017-06-21 15:07 | Therapy Group Daily Note ---
Therapy Daily Group Note Patient Education Topic Energy Cons, Other List Below (prevention of blood clots, pnuemonia and skin break down) Exercises LE Seated Exercise, UE Exercise Other/Notes Pt. participated in group PT OT session this date. Pt. came and went using FWW and SBA. Pt. was very friendly and enjoyed opening introductions and socialization. Todays' focus of education was work simplification and energy conservation. A Zazengo game was played engaging all attendees. Pt. was an active listener and contributed many times to discussion. Pt. in room after Rx in bed with christoph PENNINGTON at hand Start Time: 13:00 Stop Time: 14:25 Total Billed Treatment Time: 85 Total Billed Treatment 1,GRP KIRA POST MEDICAL ASSISTANT PER DIEM Jun 21, 2017 15:07
[2017-06-21 18:26] VITALS: BP 106/73
[2017-06-21] MEDS: ATORVASTATIN 40 MG (LIPITOR) TABLET PO SCH (20:38)
[2017-06-22 04:39] VITALS: BP 118/74
[2017-06-22] MEDS: PANTOPRAZOLE 40 MG (PROTONIX) TAB PO SCH (06:01)
[2017-06-22] MEDS: MULTIVIT W/MINERALS TAB (THERAGRAN M) PO SCH (06:01)
[2017-06-22] MEDS: LORATADINE (CLARITIN) 10 MG TAB PO SCH (08:27)
[2017-06-22] MEDS: FOLIC ACID 1 MG TAB PO SCH (08:27)
[2017-06-22] MEDS: meTOprolol TARTRATE 50 MG (LOPRESSOR) TAB PO SCH ×2 (08:27→20:24)
[2017-06-22] MEDS: VITAMIN D3 1,000 UNITS (CHOLECALCIFEROL) TABLET PO SCH (08:27)
[2017-06-22] MEDS: OXYBUTYNIN (DITROPAN) 5 MG TAB PO SCH ×2 (08:27→20:24)
[2017-06-22] MEDS: amLODIPine 5 MG (NORVASC) TAB PO SCH (08:27)
[2017-06-22] MEDS: DULoxetine 30 MG (CYMBALTA) CAP PO SCH (08:27)
[2017-06-22] MEDS: lisINopril 20 MG (ZESTRIL) TAB PO SCH (08:28)
[2017-06-22] MEDS: DOCUSATE SODIUM 100 MG (COLACE) CAP PO SCH (08:28)
[2017-06-22] MEDS: ASPIRIN E.C. 325 MG (ECOTRIN) TABLET PO SCH (08:28)
[2017-06-22] MEDS: HYDROcodone/APAP 5 MG/325 MG (LORTAB) TAB PO PRN (08:28)
[2017-06-22] MEDS: PREGABALIN 75 MG (LYRICA) CAP PO SCH (08:28)
[2017-06-22] MEDS: DICLOFENAC SOD 75 MG (VOLTAREN) TAB NON-FORMULARY PO SCH (08:29)
[2017-06-22] MEDS: RIVASTIGMINE 4.6 MG PATCH (EXELON) TD SCH (08:29)
[2017-06-22] MEDS: TRIAMCINOLONE 0.1% CR (KENALOG) 15 GM TUBE TOP SCH ×2 (08:30→20:25)
--- NOTE | 2017-06-22 09:05 | Physical Therapy Daily Note ---
PT Daily Note-Current Subjective Pt laying Supine in bed upon arrival. Pt agrees to PT for FIM scoring. Pain Numeric Pain Scale: 4 Location: Left, Lower Location Body Site: Back Pain Description: Ache Mental Status Patient Orientation: Person, Place, Situation Transfers Functional [place] Measure 0=Not Assessed/NA 4=Minimal Assistance 1=Total Assistance 5=Supervision or Setup 2=Maximal Assistance 6=Modified [place] 3=Moderate Assistance 7=Complete IndependenceIRFPAI Quality Coding Scale 6 Independent with activity with or without an assistive device 5 Patient requires set up or clean up by helper. Patient completes activity by themselves 4 Supervision or touching assist (CGA). [place] provide cues , steadying assist 3 The helper provides less than half the effort to complete the activity 2 The helper provides more than half the effort to complete the activity 1 Dependent. The helper does all the effort to complete an activity 7 Patient refused to complete or attempt activity 9 The patient did not perform the activity before the current illness or injury 88 Not attempted due to Medical conditions or safety concerns Scootin Rollin Roll Left to Right (QC): 6 Supine to/from Sit: 6 Sit to/from Stand: 6 Sit to Lying (QC): 6 Sit to Stand (QC): 6 Chair/Czu-yv-Rwgrm Xfer(QC): 6 Bed to/from Chair: 6 Car Transfer (QC): 6 Weight Bearing Right Lower Extremity: Right Full Weight Bearing Left Lower Extremity: Left Full Weight Bearing Gait Training Does the Patient Walk?: Yes Gait (FIM): 5 Distance (FIM): 3=150 ft Distance: 175' Walk 10 feet (QC): 5 Walk 50 ft with 2 Turns(QC): 5 Walk 150 ft (QC): 5 Walking 10ft/uneven surface-QC: 5 Gait Level of Assist: 5 Gait Persons Needed: 1 Gait Assistive Device: FWW Pt fatigues easily but recovers after short rest breaks. Pt reports SOA during ambulation. Wheelchair Training Does the Pt Use a Wheelchair?: No Stair Training Stair Training: Handrails/: 2 handrails Stairs (FIM): 2 #of Steps: 4 1 Step (curb) (QC): 5 4 Steps (QC): 5 12 Steps (QC): 88 Stairs: Pattern: Step to Level of Assist: 5 Pt fatigues easy and reports not being able to complete more than 4 stairs at a time due to SOA. Pt reports having a ramp at home. Balance Picking up an Object (QC): 88 Special Test Comments Due to pt's reported low back pain and fatigue, this was not attempted. Exercises Seated Therapy Exercises: Ankle pumps, Long arc quads, Kicking activity Seated Reps: 20 Treatments Pt transfers from Supine to EOB to Standing using FWW at Mod I. Pt ambulates in hallway using FWW at SBA due to fatigue. Pt completes 1 set of 4 stairs at SBA, then ambulates across varying surface for at least 10'. Pt completes car transfer and uses NuStep for 10m at Workload 4 with a couple of short rest breaks during tx. Pt takes short rest in chair followed by Seated Ex. Pt ambulates in hallway on way to room. Pt transfers back to bed to rest until next tx with all needs met. Assessment Current Status: Good Progress Pt completes tasks and activities given although fatigues easily and reports SOA. PT Short Term Goals Short Term Goals Time Frame: Jun 23, 2017 Transfers (B,C,W/C) (FIM): 5 Gait (FIM): 2 Distance (FIM): 6=041-31 ft Gait Distance Comment: 100 feet Gait Level of Assist: 5 Gait Assistive Device: FWW Stairs (FIM): 2 # of Steps: 4 Stairs Level of Assist: 4 PT Housekeeping Aide Goals Housekeeping Aide Goals PT Housekeeping Aide Goals Time Frame: Jul 07, 2017 Transfers (B,C,W/C) (FIM): 6 Sit to Lying (QC): 6 Lying-Sitting on Side/Bed(QC): 6 Sit to Stand (QC): 6 Rollin Roll Left to Right (QC): 6 Chair/Hwk-ui-Icukk Xfer(QC): 6 Car Transfer (QC): 6 Does the Patient Walk: Yes Gait (FIM): 6 Distance: 200 feet Walk 10 feet (QC): 6 Walk 10ft-Uneven Surface(QC): 6 Walk 50ft with 2 Turns (QC): 6 Walk 150 ft (QC): 6 Gait Level of Assist: 6 Gait Assistive Device: FWW Does the Pt use WC or Scooter?: No Stairs (FIM): 5 # of Steps: 12 1 Step (curb) (QC): 4 4 Steps (QC): 4 12 Steps (QC): 4 Stairs Level Of Assist: 5 Picking up an Object (QC): 4 PT Plan Problem List Problem List: Activity Tolerance, Functional Strength, Safety, Gait Treatment/Plan Treatment Plan: Continue Plan of Care Treatment Plan: Bed Mobility, Education, Functional Activity Darrel, Functional Strength, Group Therapy, Gait, Safety, Therapeutic Exercise, Transfers Treatment Duration: Jul 07, 2017 Frequency: At least 5 of 7 days/Wk (IRF) Estimated Hrs Per Day: 1.5 hours per day Patient and/or Family Agrees t: Yes Safety Risks/Education Patient Education: Gait Training, Correct Positioning, Safety Issues Teaching Recipient: Patient Teaching Methods: Discussion Response to Teaching: Verbalize Understanding Time/GCodes Time In: 800 Time Out: 900 Total Billed Treatment Time: 60 Total Billed Treatment 1, FA x2 (30m), GT (15m) & EX (15m) BILLY ROMERO CYLINDER BATCHER Jun 22, 2017 09:05
--- NOTE | 2017-06-22 09:15 | PM & R (SOAP) Progress Note ---
Subjective Time Seen by Provider: 07:55 Subjective/Events-last exam Patient was seen in her room this AM Patient Modified Independent for transfers.No Abdominal pain today. Objective Exam Last Set of Vital Signs Vital Signs Date Time Temp Pulse Resp B/P (MAP) Pulse Ox O2 Delivery O2 Flow Rate FiO2 06/22/17 08:28 97.1 06/22/17 07:55 Room Air 06/22/17 04:39 94 20 118/74 (89) 92 Capillary Refill : I&O Intake and Output 06/22/17 00:00 Intake Total 1550 ml Balance 1550 ml Intake Oral 1550 ml # Voids 6 General: Alert, Oriented X3, Cooperative, No Acute Distress HEENT: Atraumatic, PERRLA, EOMI, Mucous Memb Moist/[place] Neck: Supple, No JVD Lungs: Clear to Auscultation Heart: Regular Rate Abdomen: Normal Bowel Sounds, Soft, No Tenderness, Other (Incision site healing well camden in place no drainage) Extremities: No Edema (Strength UES 4/5 except rt shoulder flex/abduction approx 80 degrees active Strength LLE 4/5 RLE 3+/5 RLE except dorsiflexion 3+/5 ) Results Lab Laboratory Tests 06/21/17 12:09: White Blood Count 8.3, Red Blood Count 3.65L, Hemoglobin 11.1L, Hematocrit 33L, Mean Corpuscular Volume 90, Mean Corpuscular Hemoglobin 30, Mean Corpuscular Hemoglobin Concent 34, Red Cell Distribution Width 14.0, Platelet Count 456H, Mean Platelet Volume 8.9, Neutrophils (%) (Auto) 73, Lymphocytes (%) (Auto) 14, Monocytes (%) (Auto) 11, Eosinophils (%) (Auto) 2, Basophils (%) (Auto) 0, Neutrophils # (Auto) 6.1, Lymphocytes # (Auto) 1.2, Monocytes # (Auto) 0.9, Eosinophils # (Auto) 0.1, Basophils # (Auto) 0.0, Sodium Level 143, Potassium Level 3.7, Chloride Level 110H, Carbon Dioxide Level 21, Anion Gap 12, Blood Urea Nitrogen 17, Creatinine 0.90, Estimat Glomerular Filtration Rate > 60, BUN/ Creatinine Ratio 19, Glucose Level 119H, Calcium Level 8.3L, Total Bilirubin 0.5 , Aspartate Amino Transf (AST/SGOT) 14, Alanine Aminotransferase (ALT/SGPT) 12, Alkaline Phosphatase 108, Total Protein 5.8L, Albumin 2.7L Assessment/Plan Assessment General debil secondary to Ischemic Bowel D s/p Exploratory lap and excision of ischemic Bowel with mild residual postop pain-Has had BM HTN controlled with meds OA s/p revision RT DWAIN approx 1 year ago CAD s/p PTCA on meds Obesity Remote HX of Tobaccoism Plan Continue PT/OT Team Conference held yesterday-See report for full functional update and POC and ELOS Rechecked Labs-noted Discharge set tentatively for tomorrow 06/23/17 Will confirm with HERNAN CHOUDHURY MD Jun 22, 2017 09:15
--- NOTE | 2017-06-22 11:04 | Occupational Ther Daily Note ---
OT Current Status-Daily Note Subjective Pt. reports that her lower back is sore, but does not state a pain level. Appearance Pt. in bed. Agrees to shower. Mental Status/Objective Patient Orientation: Person, Place Functional [place] Measure 0=Not Assessed/NA 4=Minimal Assistance 1=Total Assistance 5=Supervision or Setup 2=Maximal Assistance 6=Modified [place] 3=Moderate Assistance 7=Complete [place] ADL-Treatment Functional [place] Measure 0=Not Assessed/NA 4=Minimal Assistance 1=Total Assistance 5=Supervision or Setup 2=Maximal Assistance 6=Modified [place] 3=Moderate Assistance 7=Complete IndependenceIRFPAI Quality Coding Scale 6 Independent with activity with or without an assistive device 5 Patient requires set up or clean up by helper. Patient completes activity by themselves 4 Supervision or touching assist (CGA). [place] provide cues , steadying assist 3 The helper provides less than half the effort to complete the activity 2 The helper provides more than half the effort to complete the activity 1 Dependent. The helper does all the effort to complete an activity 7 Patient refused to complete or attempt activity 9 The patient did not perform the activity before the current illness or injury 88 Not attempted due to Medical conditions or safety concerns Grooming (FIM): 5 Bathing (FIM): 6 (Mod I in shower.) Shower/Bathe Self (QC): 6 Upper Body (FIM): 4 (Pt. requested for OT to pull down her shirt in back.) Upper Body Dressing (QC): 4 Lower Body Dressing (FIM): 5 (SBA/set up to stand and don pants. Pt. states that she doesn't feel very "sturdy" on her feet today.) Lower Body Dressing (QC): 4 On/Off Footwear (QC): 4 Toileting (FIM): 6 Toileting Hygiene (QC): 6 Transfers (B, C, W/C) (FIM): 5 (SBA with walker due to pt. reporting weakness and lower back pain with ambulation.) Toilet/Commode Transfer (FIM): 6 Toilet Transfer (QC): 6 Shower Transfer(FIM): 5 Other Treatment After shower, pt. was encouraged to come to therapy gym for UE exercises. Pt. states that she does not feel like she can walk, but requests for OT to get wheelchair. Pt. transfers to wheelchair and OT pushes to gym. Completed 8 minutes on armbike to increase UE strength. Pt. states, "I'm done with that." Pt. then donned 1 lb. wrist weights and completed therapy peg activity as well as clothespin activity with small clothespins for fine motor hydrogen treater. Pt. taken back to room after this and pt. requested to lay in bed. Transferred to bed with SBA. All needs met. Education OT Patient Education: Correct positioning, Exercise program, Modified ADL techniques, Progress toward Goal/Update tx plan, Purpose of tx/functional activities, Reviewed precautions, Rehab process, Transfer techniques Teaching Recipient: Patient Teaching Methods: Demonstration, Discussion Response to Teaching: Verbalize Understanding, Return Demonstration OT Short Term Goals Short Term Goals Transfers (B,C,W/C) (FIM): 5 1=Demonstrate adherence to instructed precautions during ADL tasks. 2=Patient will verbalize/demonstrate understanding of assistive devices/ modifications for ADL. 3=Patient will improve strength/tolerance for activity to enable patient to perform ADL's. OT Alf Goals Reed Or Wind Instrument Repairer Goals Time Frame: Jun 30, 2017 Eating (FIM): 7 Eating (QC): 6 Groomin Oral Hygiene (QC): 6 (If dentures are here) Bathing(FIM): 6 Shower/Bathe Self (QC): 6 Upper Body Dressing(FIM): 6 Upper Body Dressing (QC): 6 Lower Body Dressing(FIM): 6 Lower Body Dressing (QC): 6 On/Off Footwear (QC): 6 Toileting(FIM): 6 Toileting Hygiene (QC): 6 Toilet/Commode Transfer(FIM): 6 Toilet/Commode Transfer (QC): 6 Tub Transfer(FIM): 6 Shower Transfer(FIM): 6 Additional Goals: 1-Demonstrate ADL Tasks, 2-Verbalize Understanding, 3- ImproveStrength/Darrel 1=Demonstrate adherence to instructed precautions during ADL tasks. 2=Patient will verbalize/demonstrate understanding of assistive devices/ modifications for ADL. 3=Patient will improve strength/tolerance for activity to enable patient to perform ADL's. OT Education/Plan Problem List/Assessment Assessment: Decreased Activ Tolerance, Impaired I ADL's, Impaired Self-Care Skills Pt would benefit from skilled OT to increase her independence in basic self care to allow her to safely return to her home and to decrease caregiver burden Discharge Recommendations Plan/Recommendations: Continue POC Therapy D/C Recommendations: Home w/ Family Support Treatment Plan/Plan of Care Treatment,Training & Education: Yes Patient would benefit from OT for education, treatment and training to promote independence in ADL's, mobility, safety and/or upper extremity function for ADL' s. Plan of Care: ADL Retraining, Functional Mobility, Group Exercise/Act as Ind ( education, exercise, socialization, activity tolerance, funct activities), UE Funct Exercise/Act, UE Neuromus Re-Ed/Coord Treatment Duration: Jun 30, 2017 Frequency: At least 5 of 7 days/Wk (IRF) Estimated Hrs Per Day: 1.5 hours per day Agreement: Yes Rehab Potential: Good Time/GCodes Start Time: 09:15 Stop Time: 10:15 Total Time Billed (hr/min): 60 Billed Treatment Time 1, ADL x 30minutes, Ex x 15minutes, FA x 15minutes SAVAGE AVENDANO OT Jun 22, 2017 11:04
--- NOTE | 2017-06-22 11:19 | D/C HH Face to Face Order ---
D/C Face to Face Orders Instructions for Patient Patient Instructions/FollowUp: Dr. Serna on 07/04 at 120p Physician to follow Patient: Dr. Ray Serna Discharge Diet for Home: Regular Diet Patient Data-Allergies,Ht & Wt Patient Allergies: Coded Allergies: No Known Drug Allergies (Unverified , 06/16/17) Height (Feet): 5 Height (Inches): 7.00 Weight (Pounds): 201 Weight (Ounces): 0.0 Home Health Need/Face to Face Date of Face to Face: Jun 23, 2017 Clinical Findings: Generalized weakness and fatigue, Unsteady gait I have seen Pt [id number]: Yes Discharged To: Home Diagnosis/Conditions: Debility Problems/Diagnosis/Condition: Patient is Homebound due to: Muscle weakness Homebound Status Due to the above stated illness, injury or surgical procedure (medical condition or diagnosis) and associated clinical findings, the patient is homebound because of his/her inability to leave home except with aid of a supportive device and/or person AND leaving the home requires a considerable and taxing effort or is medically contraindicated. Pt req the following assistanc: Walker Home Health Nursing Orders Home Health Services Order: Nursing Services, Physical Therapy-Evaluate & Treat Therapy Orders Therapy Orders: Physical Therapy Therapy Specific Orders: Eval assistive deivces, Gait training, Increase strength/endurance Certify Stmt I certify that this patient is under my care and that I, a nurse practitioner or a physician; a certified surgical assistant working with me, had a face to face encounter that - meets the physician face to face encounter requirements with this patient as dated. I personally scribed for HERNAN BRYAN MD ([email or web address]) on 06/21/17 at 18:38. Electronically submitted by Filomena Perry ([id number]). I personally scribed for HERNAN BRYAN MD) on 06/22/17 at 11:19. Electronically submitted by Filomena Perry ([id number]). HERNAN BRYAN MD Jun 21, 2017 18:38
--- NOTE | 2017-06-22 14:31 | Physical Therapy Daily Note ---
PT Daily Note-Current Subjective Pt laying Supine in bed upon arrival. Pt reports fatigue and just got back into bed. Pt agrees to Supine Ex in bed for PT. Pain Numeric Pain Scale: 6 Location: Left, Lower Location Body Site: Back Pain Description: Ache, Tightness Mental Status Patient Orientation: Person, Place, Time, Situation Transfers Functional [place] Measure 0=Not Assessed/NA 4=Minimal Assistance 1=Total Assistance 5=Supervision or Setup 2=Maximal Assistance 6=Modified [place] 3=Moderate Assistance 7=Complete IndependenceIRFPAI Quality Coding Scale 6 Independent with activity with or without an assistive device 5 Patient requires set up or clean up by helper. Patient completes activity by themselves 4 Supervision or touching assist (CGA). [place] provide cues , steadying assist 3 The helper provides less than half the effort to complete the activity 2 The helper provides more than half the effort to complete the activity 1 Dependent. The helper does all the effort to complete an activity 7 Patient refused to complete or attempt activity 9 The patient did not perform the activity before the current illness or injury 88 Not attempted due to Medical conditions or safety concerns Weight Bearing Right Lower Extremity: Right Full Weight Bearing Left Lower Extremity: Left Full Weight Bearing Exercises Supine Ex: Ankle pumps, Quad Set, Glut sets, Heel Slides, Straight leg raise, Hip abd/add Supine Reps: 20 Treatments Pt completes Supine Ex in bed with a couple of rest breaks. Pt then rests Supine in bed at end of tx with all needs met. Assessment Current Status: Good Progress Pt fatigues but recovers easily. PT Short Term Goals Short Term Goals Time Frame: Jun 23, 2017 Transfers (B,C,W/C) (FIM): 5 Gait (FIM): 2 Distance (FIM): 4=250-95 ft Gait Distance Comment: 100 feet Gait Level of Assist: 5 Gait Assistive Device: FWW Stairs (FIM): 2 # of Steps: 4 Stairs Level of Assist: 4 PT Software Applications Specialist Goals Software Applications Specialist Goals PT Software Applications Specialist Goals Time Frame: Jul 07, 2017 Transfers (B,C,W/C) (FIM): 6 Sit to Lying (QC): 6 Lying-Sitting on Side/Bed(QC): 6 Sit to Stand (QC): 6 Rollin Roll Left to Right (QC): 6 Chair/Zrf-vr-Prstt Xfer(QC): 6 Car Transfer (QC): 6 Does the Patient Walk: Yes Gait (FIM): 6 Distance: 200 feet Walk 10 feet (QC): 6 Walk 10ft-Uneven Surface(QC): 6 Walk 50ft with 2 Turns (QC): 6 Walk 150 ft (QC): 6 Gait Level of Assist: 6 Gait Assistive Device: FWW Does the Pt use WC or Scooter?: No Stairs (FIM): 5 # of Steps: 12 1 Step (curb) (QC): 4 4 Steps (QC): 4 12 Steps (QC): 4 Stairs Level Of Assist: 5 Picking up an Object (QC): 4 PT Plan Problem List Problem List: Activity Tolerance Treatment/Plan Treatment Plan: Continue Plan of Care Treatment Plan: Bed Mobility, Education, Functional Activity Darrel, Functional Strength, Group Therapy, Gait, Safety, Therapeutic Exercise, Transfers Treatment Duration: Jul 07, 2017 Frequency: At least 5 of 7 days/Wk (IRF) Estimated Hrs Per Day: 1.5 hours per day Patient and/or Family Agrees t: Yes Safety Risks/Education Patient Education: Correct Positioning, Safety Issues Teaching Recipient: Patient Teaching Methods: Discussion Response to Teaching: Verbalize Understanding Time/GCodes Time In: 1330 Time Out: 1400 Total Billed Treatment Time: 30 Total Billed Treatment 1, EX x2 (30m) BILLY ROMERO PTA Jun 22, 2017 14:31
[2017-06-22] MEDS ORDERED: DULO30CA3 PO (15:14)
[2017-06-22] MEDS ORDERED: LISI-552 PO (15:14)
[2017-06-22] MEDS ORDERED: AMLO5TAB2 PO (15:14)
[2017-06-22] MEDS ORDERED: ATOR40TA PO (15:14)
--- NOTE | 2017-06-22 15:26 | Occupational Ther Daily Note ---
OT Current Status-Daily Note Subjective No pain reported. Appearance Pt. in bed. Agrees to work with OT. Has already had lunch. Mental Status/Objective Patient Orientation: Person, Place Functional Mayflower Measure 0=Not Assessed/NA 4=Minimal Assistance 1=Total Assistance 5=Supervision or Setup 2=Maximal Assistance 6=Modified Mayflower 3=Moderate Assistance 7=Complete Mayflower ADL-Treatment Functional Mayflower Measure 0=Not Assessed/NA 4=Minimal Assistance 1=Total Assistance 5=Supervision or Setup 2=Maximal Assistance 6=Modified Mayflower 3=Moderate Assistance 7=Complete IndependenceIRFPAI Quality Coding Scale 6 Independent with activity with or without an assistive device 5 Patient requires set up or clean up by helper. Patient completes activity by themselves 4 Supervision or touching assist (CGA). [place] provide cues , steadying assist 3 The helper provides less than half the effort to complete the activity 2 The helper provides more than half the effort to complete the activity 1 Dependent. The helper does all the effort to complete an activity 7 Patient refused to complete or attempt activity 9 The patient did not perform the activity before the current illness or injury 88 Not attempted due to Medical conditions or safety concerns Transfers (B, C, W/C) (FIM): 6 (Mod I with walker.) Other Treatment Pt. ambulated with Mod I to therapy gym. Donned 1 lb. wrist weights and completed bilateral UE exercises with playing card game. Worked on reaching in all planes, as well as cognitive task with learning, sequencing, and completing card game. Pt. tolerated this well. Doffed wrist weights and ambulated back to room. Education OT Patient Education: Correct positioning, Exercise program, Modified ADL techniques, Progress toward Goal/Update tx plan, Purpose of tx/functional activities, Reviewed precautions, Rehab process, Transfer techniques Teaching Recipient: Patient Teaching Methods: Demonstration, Discussion Response to Teaching: Verbalize Understanding, Return Demonstration OT Short Term Goals Short Term Goals Transfers (B,C,W/C) (FIM): 5 1=Demonstrate adherence to instructed precautions during ADL tasks. 2=Patient will verbalize/demonstrate understanding of assistive devices/ modifications for ADL. 3=Patient will improve strength/tolerance for activity to enable patient to perform ADL's. OT Nursing Home Goals Analysis Tester Goals Time Frame: Jun 30, 2017 Eating (FIM): 7 Eating (QC): 6 Groomin Oral Hygiene (QC): 6 (If dentures are here) Bathing(FIM): 6 Shower/Bathe Self (QC): 6 Upper Body Dressing(FIM): 6 Upper Body Dressing (QC): 6 Lower Body Dressing(FIM): 6 Lower Body Dressing (QC): 6 On/Off Footwear (QC): 6 Toileting(FIM): 6 Toileting Hygiene (QC): 6 Toilet/Commode Transfer(FIM): 6 Toilet/Commode Transfer (QC): 6 Tub Transfer(FIM): 6 Shower Transfer(FIM): 6 Additional Goals: 1-Demonstrate ADL Tasks, 2-Verbalize Understanding, 3- ImproveStrength/Darrel 1=Demonstrate adherence to instructed precautions during ADL tasks. 2=Patient will verbalize/demonstrate understanding of assistive devices/ modifications for ADL. 3=Patient will improve strength/tolerance for activity to enable patient to perform ADL's. OT Education/Plan Problem List/Assessment Assessment: Decreased Activ Tolerance Pt would benefit from skilled OT to increase her independence in basic self care to allow her to safely return to her home and to decrease caregiver burden Discharge Recommendations Plan/Recommendations: Continue POC Therapy D/C Recommendations: Home w/ Family Support Treatment Plan/Plan of Care Treatment,Training & Education: Yes Patient would benefit from OT for education, treatment and training to promote independence in ADL's, mobility, safety and/or upper extremity function for ADL' s. Plan of Care: ADL Retraining, Functional Mobility, Group Exercise/Act as Ind ( education, exercise, socialization, activity tolerance, funct activities), UE Funct Exercise/Act, UE Neuromus Re-Ed/Coord Treatment Duration: Jun 30, 2017 Frequency: At least 5 of 7 days/Wk (IRF) Estimated Hrs Per Day: 1.5 hours per day Agreement: Yes Rehab Potential: Good Time/GCodes Start Time: 13:00 Stop Time: 13:30 Total Time Billed (hr/min): 30 Billed Treatment Time 1, FA x 2 SAVAGE AVENDANO OT Jun 22, 2017 15:26
[2017-06-22 19:25] VITALS: BP 92/58
[2017-06-22] MEDS: ATORVASTATIN 40 MG (LIPITOR) TABLET PO SCH (20:24)
[2017-06-23] MEDS: MULTIVIT W/MINERALS TAB (THERAGRAN M) PO SCH (06:02)
[2017-06-23] MEDS: PANTOPRAZOLE 40 MG (PROTONIX) TAB PO SCH (06:02)
[2017-06-23 06:35] VITALS: BP 117/67
[2017-06-23] MEDS: FOLIC ACID 1 MG TAB PO SCH (08:56)
[2017-06-23] MEDS: DULoxetine 30 MG (CYMBALTA) CAP PO SCH (08:56)
[2017-06-23] MEDS: lisINopril 20 MG (ZESTRIL) TAB PO SCH (08:56)
[2017-06-23] MEDS: DICLOFENAC SOD 75 MG (VOLTAREN) TAB NON-FORMULARY PO SCH (08:56)
[2017-06-23] MEDS: amLODIPine 5 MG (NORVASC) TAB PO SCH (08:56)
[2017-06-23] MEDS: meTOprolol TARTRATE 50 MG (LOPRESSOR) TAB PO SCH (08:56)
[2017-06-23] MEDS: LORATADINE (CLARITIN) 10 MG TAB PO SCH (08:56)
[2017-06-23] MEDS: OXYBUTYNIN (DITROPAN) 5 MG TAB PO SCH (08:56)
[2017-06-23] MEDS: PREGABALIN 75 MG (LYRICA) CAP PO SCH (08:56)
[2017-06-23] MEDS: RIVASTIGMINE 4.6 MG PATCH (EXELON) TD SCH (08:56)
[2017-06-23] MEDS: VITAMIN D3 1,000 UNITS (CHOLECALCIFEROL) TABLET PO SCH (08:56)
[2017-06-23] MEDS: DOCUSATE SODIUM 100 MG (COLACE) CAP PO SCH (08:56)
[2017-06-23] MEDS: ASPIRIN E.C. 325 MG (ECOTRIN) TABLET PO SCH (08:57)
[2017-06-23] MEDS: TRIAMCINOLONE 0.1% CR (KENALOG) 15 GM TUBE TOP SCH (08:59)
[2017-06-23] MEDS: HYDROcodone/APAP 5 MG/325 MG (LORTAB) TAB PO PRN (08:59)
--- NOTE | 2017-06-23 09:47 | PM & R (SOAP) Progress Note ---
Subjective Time Seen by Provider: 08:10 Subjective/Events-last exam Patient was seen in her room this AM All set for discharge to home Has progressed well Objective Exam Last Set of Vital Signs Vital Signs Date Time Temp Pulse Resp B/P (MAP) Pulse Ox O2 Delivery O2 Flow Rate FiO2 06/23/17 06:35 98.0 70 18 117/67 (84) 95 Room Air Capillary Refill : I&O Intake and Output 06/23/17 00:00 Intake Total 2230 ml Balance 2230 ml Intake Oral 2230 ml # Voids 5 General: Alert, Oriented X3, Cooperative, No Acute Distress HEENT: Atraumatic, PERRLA, EOMI, Mucous Memb Moist/Anselmo Neck: Supple, No JVD Lungs: Clear to Auscultation Heart: Regular Rate Abdomen: Normal Bowel Sounds, Soft, No Tenderness, Other (Incision site healing well camden in place no drainage) Extremities: No Edema (Strength UES 4/5 except rt shoulder flex/abduction approx 80 degrees active Strength LLE 4/5 RLE 3+/5 RLE except dorsiflexion 3+/5 ) Results Lab Laboratory Tests 06/21/17 12:09: White Blood Count 8.3, Red Blood Count 3.65L, Hemoglobin 11.1L, Hematocrit 33L, Mean Corpuscular Volume 90, Mean Corpuscular Hemoglobin 30, Mean Corpuscular Hemoglobin Concent 34, Red Cell Distribution Width 14.0, Platelet Count 456H, Mean Platelet Volume 8.9, Neutrophils (%) (Auto) 73, Lymphocytes (%) (Auto) 14, Monocytes (%) (Auto) 11, Eosinophils (%) (Auto) 2, Basophils (%) (Auto) 0, Neutrophils # (Auto) 6.1, Lymphocytes # (Auto) 1.2, Monocytes # (Auto) 0.9, Eosinophils # (Auto) 0.1, Basophils # (Auto) 0.0, Sodium Level 143, Potassium Level 3.7, Chloride Level 110H, Carbon Dioxide Level 21, Anion Gap 12, Blood Urea Nitrogen 17, Creatinine 0.90, Estimat Glomerular Filtration Rate > 60, BUN/ Creatinine Ratio 19, Glucose Level 119H, Calcium Level 8.3L, Total Bilirubin 0.5 , Aspartate Amino Transf (AST/SGOT) 14, Alanine Aminotransferase (ALT/SGPT) 12, Alkaline Phosphatase 108, Total Protein 5.8L, Albumin 2.7L Assessment/Plan Assessment General debil secondary to Ischemic Bowel D s/p Exploratory lap and excision of ischemic Bowel with mild residual postop pain-Has had BM HTN controlled with meds OA s/p revision RT DWAIN approx 1 year ago CAD s/p PTCA on meds Obesity Remote HX of Tobaccoism Plan Discharge today to home with family and HHC F/U with PCP and her surgeon See orders Current meds reviewed HERNAN BRYAN MD Jun 23, 2017 09:47
--- NOTE | 2017-06-23 11:56 | Therapy Team Discharge Summary ---
Therapy Discharge Summary Discharge Recommendations Date of Discharge 06/23/2017 Therapy D/C Recommendations: Home w/ Family Support, Physical Therapy Home Care Physical Therapy Pt admitted to IRF after developing weakness after diagnosis of ischemic bowel disease. PLOF was mod I to I with use of a FWW in the home and in the environment. Pt arrived to IRF in order to improve strength, activity tolerance , and functional mobility. Upon admission, pt required min A to CGA for bed mobility and transfers. Pt was able to ambulate for 70 feet with use of a FWW and CGA. Pt propelled WCH for 150 feet with SBA. Pt performed functional mobility, bed mobility, gait training, and LE exercises in order to promote independence at home. Pt has improved functional mobility and activity tolerance. Pt is now mod I for bed mobility and transfers. Pt requires SBA to walk 175 feet and is able to walk up and down 4 stairs with SBA. Pt is being discharged to home with family support at this time. Occupational Therapy Decreased Activ Tolerance PT Strawhat Sizer Goals Strawhat Sizer Goals PT Strawhat Sizer Goals Time Frame: Jul 07, 2017 Transfers (B,C,W/C) (FIM): 6 (met) Roll Left to Right (QC): 6 (met) Sit to Lying (QC): 6 (met) Lying-Sitting on Side/Bed(QC): 6 (met) Sit to Stand (QC): 6 (met) Chair/Jlh-li-Nzein Xfer(QC): 6 (met) Car Transfer (QC): 6 (met) Does the Patient Walk: Yes Gait (FIM): 6 (5) Gait distance (FIM): 3=150 ft Distance: 175 feet Walk 10 feet (QC): 6 (5) Walk 10ft-Uneven Surface(QC): 6 (5) Walk 50ft with 2 Turns (QC): 6 (5) Walk 150 ft (QC): 6 (5) Gait Level of Assist: 6 (5) Gait Assistive Device: FWW Does the Pt use WC or Scooter?: No Stairs (FIM): 5 (2) # of Steps: 12 (4) 1 Step (curb) (QC): 4 (4) 4 Steps (QC): 4 (5) 12 Steps (QC): 4 (88) Stairs Level Of Assist: 5 (5) Picking up an Object (QC): 4 (88) Number in parentheses indicates value of assistance needed. OT Jail Goals Strawhat Sizer Goals Time Frame: Jun 30, 2017 Eating (FIM): 7 Eating (QC): 6 Oral Hygiene (QC): 6 (If dentures are here) Grooming(FIM): 6 Bathing(FIM): 6 Shower/Bathe Self (QC): 6 Upper Body Dressing(FIM): 6 Upper Body Dressing (QC): 6 Lower Body Dressing(FIM): 6 Lower Body Dressing (QC): 6 On/Off Footwear (QC): 6 Toileting(FIM): 6 Toileting Hygiene (QC): 6 Toilet/Commode Transfer(FIM): 6 Toilet/Commode Transfer (QC): 6 Tub Transfer(FIM): 6 Shower Transfer(FIM): 6 Additional Goals: 1-Demonstrate ADL Tasks, 2-Verbalize Understanding, 3- ImproveStrength/Drarel 1=Demonstrate adherence to instructed precautions during ADL tasks. 2=Patient will verbalize/demonstrate understanding of assistive devices/ modifications for ADL. 3=Patient will improve strength/tolerance for activity to enable patient to perform ADL's. LOLA JORGE PT Jun 23, 2017 11:56
[2017-06-23 12:45] VITALS: BP 121/65
--- NOTE | 2017-06-23 14:37 | Therapy Team Discharge Summary ---
Therapy Discharge Summary Discharge Recommendations Date of Discharge Jun 23, 2017 at 12:58 Therapy D/C Recommendations: Home w/ Family Support, Physical Therapy Home Care Occupational Therapy Pt admitted to ARU with debility. On admission pt required min assist with toileting, toilet transfer, and grooming; and SBA with eating, bathing, dressing , and shower transfers. Skilled OT intervention focused on ADL training, transfers, strengthening, and safety education. Pt made some progress with therapy and by discharge is completing eating, bathing, toileting, and toilet transfer with modified independence; shower transfer, grooming,and LE dressing with supervision, and UE dressing with min assist. Pt met goals for bathing, toileting, and toilet transfer, but did not meet other LTG. Pt discharged home with family support. D/C ARU OT at this time. Decreased Activ Tolerance PT Detention Goals Detention Goals PT Detention Goals Time Frame: Jul 07, 2017 Transfers (B,C,W/C) (FIM): 6 (met) Roll Left to Right (QC): 6 (met) Sit to Lying (QC): 6 (met) Lying-Sitting on Side/Bed(QC): 6 (met) Sit to Stand (QC): 6 (met) Chair/Slf-gs-Sqhsp Xfer(QC): 6 (met) Car Transfer (QC): 6 (met) Does the Patient Walk: Yes Gait (FIM): 6 (5) Gait distance (FIM): 3=150 ft Distance: 175 feet Walk 10 feet (QC): 6 (5) Walk 10ft-Uneven Surface(QC): 6 (5) Walk 50ft with 2 Turns (QC): 6 (5) Walk 150 ft (QC): 6 (5) Gait Level of Assist: 6 (5) Gait Assistive Device: FWW Does the Pt use WC or Scooter?: No Stairs (FIM): 5 (2) # of Steps: 12 (4) 1 Step (curb) (QC): 4 (4) 4 Steps (QC): 4 (5) 12 Steps (QC): 4 (88) Stairs Level Of Assist: 5 (5) Picking up an Object (QC): 4 (88) OT Aircraft Riveter Goals Aircraft Riveter Goals Time Frame: Jun 30, 2017 Eating (FIM): 7 Eating (QC): 6 Oral Hygiene (QC): 6 (If dentures are here) Grooming(FIM): 6 Bathing(FIM): 6 Shower/Bathe Self (QC): 6 Upper Body Dressing(FIM): 6 Upper Body Dressing (QC): 6 Lower Body Dressing(FIM): 6 Lower Body Dressing (QC): 6 On/Off Footwear (QC): 6 Toileting(FIM): 6 Toileting Hygiene (QC): 6 Toilet/Commode Transfer(FIM): 6 Toilet/Commode Transfer (QC): 6 Tub Transfer(FIM): 6 Shower Transfer(FIM): 6 Additional Goals: 1-Demonstrate ADL Tasks, 2-Verbalize Understanding, 3- ImproveStrength/Darrel 1=Demonstrate adherence to instructed precautions during ADL tasks. 2=Patient will verbalize/demonstrate understanding of assistive devices/ modifications for ADL. 3=Patient will improve strength/tolerance for activity to enable patient to perform ADL's. ANALIA LANE OT Jun 23, 2017 14:37
== END 2017-06-23 12:58 | disposition home health service (06) | DRG 950 ==
PROVIDERS: ADMIT Physical Medicine & Rehabilitation; ATTEND Physical Medicine & Rehabilitation
DX: Z48.815 Encounter for surgical aftercare following surgery on the digestive system (principal); I25.10 Atherosclerotic heart disease of native coronary artery without angina pectoris; I10 Essential (primary) hypertension; E78.5 Hyperlipidemia, unspecified; F41.9 Anxiety disorder, unspecified; Z87.891 Personal history of nicotine dependence; Z95.5 Presence of coronary angioplasty implant and graft; E66.9 Obesity, unspecified; E88.09 Other disorders of plasma-protein metabolism, not elsewhere classified; Z68.31 Body mass index [BMI] 31.0-31.9, adult
CPT/HCPCS: 36415; 80053; 80061; 85025; 94760

== ENCOUNTER 2017-10-24 05:40 | Outpatient (CLI) | payer MEDICAID ==
[~2017-10-24] VITALS: Ht 170.2 cm; Wt 85.3 kg
[~2017-10-24 05:40] MED LIST changes: +ACET325T38 PO; +AMLO5TAB2 PO; +ASPI325T32 PO; +ATOR40TA PO; +CETI10TA17 PO; +CLOB118S3 TOP; +DOCU-244 PO; +DULO30CA48 PO; +EST30C VG; +FESO4TAB PO; +LISI-552 PO; +LISI10TA2 PO; +LOPE2TAB34 PO; +METO50TA15 PO; +MULT-878 PO; +OXYC-529 PO; +PREG150C PO; +RANI150C4 PO; -RANI150T15 PO; +RANI150T46 PO; +RISP1TAB3 PO; +RIVA1PAT11 TD; +RT-ALBUINH INH; +TRAZ-28 PO; +TRAZ100T92 PO; +TRIM100T PO
[2017-10-24] MEDS ORDERED: ATOR40TA70 PO (14:24)
[2017-10-24] MEDS ORDERED: LISI40TA PO (14:24)
[2017-10-24] MEDS ORDERED: AMLO10TA2 PO (14:24)
[2017-10-24] MEDS ORDERED: METO10TA3 PO (14:24)
[2017-10-24] MEDS ORDERED: DEXT1CAP3 PO (14:24)
[2017-10-24] MEDS ORDERED: ALPR1TAB7 PO (14:24)
[2017-10-24] MEDS ORDERED: DULO30CA3 PO (14:24)
== END 2017-10-24 14:26 ==
LOC: PREOP 05:40
PROVIDERS: ATTEND Internal Medicine
DX: Z01.818 Encounter for other preprocedural examination (principal); R13.10 Dysphagia, unspecified

== ENCOUNTER 2017-10-27 08:00 | Day surgery (SDC) | payer MEDICAID ==
--- NOTE | 2017-10-24 14:19 | HISTORY AND PHYSICAL ---
DATE OF SERVICE: EGD HISTORY AND PHYSICAL HISTORY OF PRESENT ILLNESS: The patient is a 62-year-old white female referred by Dr. Serna for surveillance EGD due to past history of short segment Peña's. She last underwent EGD evaluation 2 years ago. At that time, she did not have evidence for high-grade dysplasia. She reports that she has been again experiencing some mild dysphagia to solids only. She denies weight loss, melena or bright red blood per rectum. She denies any associated abdominal pain. PAST MEDICAL HISTORY: Significant for hypertension with stage III chronic renal disease, obesity, history of arthritis. MEDICATIONS ON ADMISSION: Include pantoprazole 40 mg daily, Exelon 4.6 mg daily, duloxetine 30 mg daily, atorvastatin 80 mg daily, Colace 100 mg daily, ProAir 2 puffs q.4 hours p.r.n., lisinopril 40 mg daily, metoprolol 50 mg daily, ranitidine 150 mg at bedtime, Toviaz 4 mg daily, 325 mg aspirin daily, 5 mg oxycodone tablet q.6 hours p.r.n. PAST SURGICAL HISTORY: Significant for distant past history of cholecystectomy, she has had total knee replacements and past tubal ligation. SOCIAL HISTORY: She is disabled with a 20+ pack year smoking history, but quit in 2013 with no significant past alcohol use. FAMILY HISTORY: She is not aware of any family history of esophageal cancer, gastric, pancreatic or colon cancer. PHYSICAL EXAMINATION: GENERAL: Reveals an obese white female with somewhat flat affect who appeared to be in no acute distress. VITAL SIGNS: Her weight is 188 pounds, is down 58 pounds from her last office weights in our office in 2016. Blood pressure 110/70, heart rate 80 and regular. HEENT: Unremarkable. She has a Mallampati class 4 oropharyngeal configuration. CHEST: Clear to auscultation. CARDIOVASCULAR: Regular rate and rhythm without murmur, S3 or S4. ABDOMEN: Soft, supple without mass, organomegaly or tenderness. EXTREMITIES: Reveal no cyanosis, clubbing or edema. ASSESSMENT AND PLAN: For recurrent mild dysphagia with a history of Peña's esophagus, the patient set up for diagnostic EGD on the 10/27/2017. She is to abstain from aspirin in the interim and written instructions were given. I thank you for the referral of this pleasant lady. Job ID: [id number] DocumentID: [id number] Dictated Date: 10/20/2017 09:07:38 School Program Director Date: 10/20/2017 09:43:18 Dictated By: LILIYA KIRK MD
[~2017-10-27] VITALS: Ht 170.2 cm; Wt 85.3 kg
[~2017-10-27 08:00] MED LIST changes: +AMLO10TA2 PO; +ATOR40TA70 PO; +DEXT1CAP3 PO; +LISI40TA PO; +METO10TA3 PO
--- OUTSIDE RECORDS SUMMARY | 2017-10-27 08:05 | XMS REPORT | Clinical Summary ---
Author Author [facility] Organization [facility] Address Unknown Phone Unavailable Care Team Providers Care Chemist Pharmaceutical Name Role Phone Sedrick Mei MD Unavailable Unavailable Ray Serna MD PCP Source Comments Some departments are not documenting in the electronic medical record. If you do not see the information that you expected, contact Release of Information in the Health Information Management department at [phone] for further assistance in locating additional records.[facility] Allergies No Known Allergies Current Medications [...] mouth daily. 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 03/18/2016 Complications due to internal orthopedic device, implant, and graft ([facility]) 03/18/2016 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 03/18/2016 Family History Medical History Relation Name Comments [...] Taken Blood Pressure 128/100 06/02/2017 12:32 PM BILLET WORKER Pulse 65 06/02/2017 11:38 AM BILLET WORKER Temperature 36.4 C (97.5 F) 06/02/2017 11:38 AM BILLET WORKER Respiratory Rate 18 06/02/2017 11:38 AM BILLET WORKER Oxygen Saturation 97% 06/02/2017 12:32 PM BILLET WORKER Inhaled Oxygen - - Concentration Weight 94.8 kg (209 lb) 06/02/2017 11:38 AM BILLET WORKER Height 170.2 cm (5' 7") 06/02/2017 11:38 AM BILLET WORKER Body Mass Index 32.73 06/02/2017 11:38 AM BILLET WORKER Plan of Treatment Health Maintenance Due Date Last Done Comments HEPATITIS C SCREENING 1954 PHYSICAL (COMPREHENSIVE) 1961 EXAM PERTUSSIS VACCINE 1965 HIV SCREENING 1969 TETANUS VACCINE 09/28/1971 CERVICAL CANCER SCREENING 1984 BREAST CANCER SCREENING 1994 COLORECTAL CANCER 2004 SCREENING SHINGLES VACCINE 2014 INFLUENZA VACCINE 02/12/2018 04/17/2006 Implants Implanted Type Area Dog Breeder Device Expiration Model / Identifier Date Serial / Lot Screw Bone 3.5mm 26mm Lcp Stainless SYNTHES:SYNTHES 212.109 / Steel Full Thread Pelvis [place] N/A / Implanted: Qty: 1 on 03/02/2016 by N/A Sedrick Mei MD Screw Bone 3.5mm 28mm Lcp Stainless SYNTHES:[employer] 212.110 / Steel Tibia Proximal [place] N/A / Implanted: Qty: 1 on 03/02/2016 by N/A Sedrick Mei MD Screw Bone 3.5mm 30mm Lcp Stainless SYNTHES:SYNTHES 212.111 / Steel Tibia Proximal [place] N/A / Implanted: Qty: 1 on 03/02/2016 by N/A Sedrick Mei MD Screw Bone 3.5mm 38mm Lcp Stainless SYNTHES:SYNTHES 212.116 / Steel Full Thread Pelvis [place] N/A / Implanted: Qty: 1 on 03/02/2016 by N/A Sedrick Mei MD Screw Bone 3.5mm 40mm Lcp Stainless SYNTHES:SYNTHES 212.117 / Steel Tibia Proximal [place] N/A / Implanted: Qty: 1 on 03/02/2016 by N/A Sedrick Mei MD Screw Bone 3.5mm 60mm Lcp Stainless SYNTHES:SYNTHES 212.124 / Steel Full Thread Pelvis [place] N/A / Implanted: Qty: 1 on 03/02/2016 by N/A Sedrick Mei MD Screw Bone 3.5mm 6mm [...] OSTEONICS / Sedrick Mei MD N/A / [id number] Insert Acetabular 60mm 28mm 0d X3 THEO:JLUIS 07/02/2020 1236-2- 860 Duration Adm 12.9mm CA OSTEONICS / Implanted: Qty: 1 on 03/02/2016 by Ginette/A / Sedrick Mei MD [id number] Screw Bone 4mm 18mm Dynatran Rflx Right: Hip THEO:THEO [id number] / Hybrid Titanium Spine Vari ORTHOPAEDICS [id number] Implanted: Qty: 1 on 03/02/2016 by 1014 / Sedrick Mei MD [id number] Head Femoral +12mm Offset 28mm Hip THEO:THEO 04/14/2017 6260-9- 428 Cocr V40 Lfit INSTR / Implanted: Qty: 1 on 03/02/2016 by N/Jesus Alberto / Sedrick Mei MD [id number] Hemispherical Shell 70mm/ I Right: Hip [id number] Implanted: Qty: 1 on 03/02/2016 by / Sedrick Mei MD [id number] / [id number] Plate Screw 6.5mm X 35mm Right: Hip THEO Implanted: Qty: 1 on 03/02/2016 by / Sedrick Mei MD / [id number] Screw Bone 20mm 6.5mm Torx Right: Hip UNIDENTIFIED Acetabular Cancellous MFG / Implanted: Qty: 1 on 03/02/2016 by KAREN / Sedrick Mei MD [id number] Screw Bone 20mm 6.5mm Torx Right: Hip UNIDENTIFIED Acetabular Cancellous MFG / Implanted: Qty: 1 on 03/02/2016 by KAREN / Sedrick Mei MD [id number] Plate 117mm Stainless Steel 3.5mm Right: Hip SYNTHES:SYNTHES 02.100.109 Screw 9 Hole Locking Low [place] / Implanted: Qty: 1 on 03/02/2016 by KAREN / Sedrick Mei MD NA Plate 130mm Stainless Steel 3.5mm Right: Hip SYNTHES:SYNTHES 02.100.110 Screw 10 Hole Locking Low [place] / Implanted: Qty: 1 on 03/02/2016 by KAREN / Sedrick Mei MD NA Screw Bone 3.5mm 60mm Pelvic Cortex Right: Hip SYNTHES:SYNTHES 204.660 / Self Tap [place] NA / Implanted: Qty: 1 on 03/02/2016 by Sedrick Davies MD Explanted Type Area Dog Breeder Device Expiration Model / Identifier Date Serial / Lot Total Hip Components / Explanted: Qty: 3 on 03/02/2016 by Sedrick Pastor MD NA Results Not on filefrom Last 3 Months
[2017-10-27 08:10] VITALS: BP 115/78
--- OUTSIDE RECORDS SUMMARY | 2017-10-27 08:10 | XMS REPORT ---
Author Author DELMI BYRNES Organization [facility] Address [address] [place] [address] Care Team Providers Care Theater Set Production Designer Name Role Phone DELMI BYRNES Unavailable PROBLEMS Type Condition ICD9-CM Code FII00-UB Code Onset Dates Condition Status SNOMED Code Problem Chronic kidney disease, stage 2 (mild) N18.2 Active 869752728 Problem Prediabetes R73.03 Active 464766403 Problem Essential hypertension I10 Active 29598218 Problem Pseudobulbar affect F48.2 Active 05801143 Problem Intractable cyclical vomiting with nausea G43.A1 Active 57530818 Problem Chronic depression F32.9 Active 868707063 Problem Lumbar radiculopathy M54.16 Active 036468351 Problem Severe episode of recurrent major depressive disorder, without psychotic features F33.2 Active 61879795 Problem Chronic bronchitis, unspecified chronic bronchitis type J42 Active 56593517 Problem Hyperlipidemia, unspecified hyperlipidemia type E78.5 Active 17646856 Problem Arthritis M19.90 Active 3520925 Problem Coronary artery disease involving cabazon coronary artery, angina presence unspecified, unspecified whether cabazon or transplanted heart I25.10 Active 8155823017250 Problem Fibromyalgia M79.7 Active 730908754 Problem Barretts esophagus with dysplasia K22.719 Active [id number] Problem Anxiety F41.9 Active 61738075 ALLERGIES No Information ENCOUNTERS Encounter Location Date Diagnosis [facility] [address] [facility] [id number] [address] Oct, [facility] [address], [place] [address] Aug, Essential hypertension I10 ; Lumbar radiculopathy M54.16 ; Anxiety F41.9 ; Intractable cyclical vomiting with nausea G43.A1 and Pseudobulbar affect F48.2 [facility] [address] [place] [address] [address] Aug, Arthritis M19.90 [place] [address] [address] Jul, Intractable cyclical vomiting with nausea G43.A1 and Anxiety F41.9 [place] [address] [address] Jul, [place] [address] [address] Jul, Anxiety F41.9 and Arthritis M19.90 [place] [address] [address] Jul, Severe episode of recurrent major depressive disorder, without psychotic features F33.2 and Neurocognitive disorder R41.9 [place] [address] [address] 27 Jun, 2017 [place] [address] [address] Jun, Lumbar radiculopathy M54.16 ; Essential hypertension I10 ; Anxiety F41.9 and Chronic bronchitis, unspecified chronic bronchitis type J42 [place] [address] [address] 15 Jun, 2017 Anxiety F41.9 [place] [address] [address]- [address] 14 Jun, 2017 [place] [address] [address] Jun, Arthritis M19.90 [place] [address] [address]- [address] 05 Jun, 2017 [place] [address] [address]- 16[address] 05 Jun, 2017 [place] [address] [address] May, [facility] [address] [id number], [place] [address] May, [facility] [address] [place] [id number] [place] [address] May, HPV (human papilloma virus) infection B97.7 [facility] [address] [place] [id number] [place] [address]78- 4885 May, Anxiety F41.9 and Arthritis M19.90 [facility] [address] [place] [id number] [place] [address]30- [address] Apr, [place] [address] [place] [id number] [place] [address] 47139- 9766 15 Apr, 2017 [place] [address] [place] [id number] [place] [address] 72853- 1772 13 Apr, 2017 Colon cancer screening Z12.11 [place] [address] [place] [id number] [place] [address]31- 5296 11 Apr, 2017 [facility] [address] [place] [id number] [place] [address] 6[address]90- 4902 Apr, [place] [address] [place] [id number] [place] [address] 45183- 4938 07 Apr, 2017 Arthritis M19.90 and Anxiety F41.9 [place] [id number] [place] [address] 14592- 6415 30 Mar, 2017 Well woman exam Z01.419 and Colon cancer screening Z12.11 [facility] [id number] [place] [address] 69117- 6781 14 Mar, 2017 [facility] [address] [place] [id number] [place] [address] 24488- 6811 13 Mar, 2017 Anxiety F41.9 and Arthritis M19.90 [facility] [id number] [place] [address]88- 4792 19 Feb, 2017 Encounter for immunization Z23 ; Essential hypertension I10 ; Lumbar radiculopathy M54.16 ; Chronic depression F32.9 ; Routine adult health maintenance Z00.00 and Chronic bronchitis, unspecified chronic bronchitis type J42 [place] [address] [place] [id number] [place] [address]00- 0097 Feb, Arthritis M19.90 and Anxiety F41.9 [place] [address] [place] [id number] [place] [address] 08617- 1704 Jan, Arthritis M19.90 and Anxiety F41.9 [place] [address] [place] [id number] [place] [address] 95171- 9621 Dec, Arthritis M19.90 and Anxiety F41.9 [place] [address] [place] [id number] [place] [address] 05989- 1578 Dec, Lumbar radiculopathy M54.16 and Chronic depression F32.9 [place] [address] [place] [id number] [place] [address] 26010- 7356 Dec, [place] [address] [place] [id number] [place] [address] 68293- 1805 Dec, Foot drop, right foot M21.371 ; Coronary artery disease involving cabazon coronary artery, angina presence unspecified, unspecified whether cabazon or transplanted heart I25.10 and Depressive disorder, not elsewhere classified F32.9 [place] [address] [place] [id number] [place] [address] 95073- 6933 Nov, Arthritis M19.90 [place] [address] [place] [id number] [place] [address] 57212- 8354 Nov, [place] [address] [place] [id number] [place] [address] 94393- 1076 Oct, [place] [address] [place] [id number] [place] [address] 12472- 4666 Oct, Essential hypertension I10 ; Anxiety F41.9 ; Arthritis M19.90 and Fibromyalgia M79.7 [place] [address] [place] [id number] [place] [address] 09572- 0550 September, Anxiety F41.9 [place] [address] [place] [id number] [place] [address] 02987- 0839 September, Arthritis M19.90 [place] [address] [place] [id number] [place] [address]123- 6409 Aug, Dental examination Z01.20 [place] [address] [place] [id number] [place] [address] 98575- 3115 Aug, Anxiety F41.9 [place] [address] [place] [id number] [place] [address] 89173- 7421 Aug, [place] [address] [address]- [address] Aug, Anxiety F41.9 [place] [address] [place] [id number] [place] [address] 54292- 9615 Aug, Essential hypertension I10 and Arthritis M19.90 [place] [address] [place] [id number] [place] [address] 84069- 2222 Aug, Depressive disorder, not elsewhere classified F32.9 [place] [address] [place] [id number] [place] [address] 17747- 2329 Jul, Abrasion, unspecified lesser toe(s), sequela S90.416S and Local infection of the skin and subcutaneous tissue, unspecified L08.9 [place] [address] [place] [address] 91346- 7842 Jul, Prediabetes R73.03 and Essential hypertension I10 [place] [address] [place] [address] 13399- 2260 Jul, Abnormal glucose level R73.09 [place] [id number] [place] [id number] Jul, [place] [address] [place] [id number] [place] [address] 63851- 0577 Jul, Abnormal glucose level R73.09 [place] [address] [place] [id number] [place] [address] 88820- 9667 16 Jul, 2016 Fibromyalgia M79.7 ; Arthritis M19.90 ; Chronic kidney disease, stage 2 (mild) N18.2 and Depressive disorder, not elsewhere classified F32.9 [place] [address] [place] [id number] [place] [address] 33535- 9167 Jul, [place] [address] [address]- 8941 Jul, [place] [address] [place] [id number] [place] [address] 14558- 3672 Jul, [place] [address] 45[address]- 3868 Jul, Arthritis M19.90 ; Depressive disorder, not elsewhere classified F32.9 ; Fibromyalgia M79.7 and Constipation, unspecified constipation type K59.00 [place] [address] [place] [id number] [place] [address] 83702- 8578 15 Jun, 2016 Anxiety F41.9 [place] [address] [place] [id number] [place] [address] 63787- 6384 14 Jun, 2016 Anxiety F41.9 and Fibromyalgia M79.7 [place] [address] [place] [id number] [place] [address] 62852- 8433 11 Jun, 2016 [place] [address] [place] [id number] [place] [address] 84371- 2604 10 Jun, 2016 Arthritis M19.90 ; Depressive disorder, not elsewhere classified F32.9 ; Barretts esophagus with dysplasia K22.719 ; Edema, unspecified type R60.9 and Fibromyalgia M79.7 [place] [address] [place] [id number] [place] [address] 98570- 5485 06 Jun, 2016 [place] [address] [place] [id number] [place] [address] 17057- 9648 May, [place] [address] 28051- 8217 May, Dyspnea on exertion R06.09 ; Coronary artery disease involving cabazon coronary artery, angina presence unspecified, unspecified whether cabazon or transplanted heart I25.10 and Arthritis M19.90 [facility] [address], [place] [address] May, [facility] [address], [place] [address]- 5105 Apr, Arthritis M19.90 [facility] [id number] [place] [address] 02284- 7373 Apr, Arthritis M19.90 and Acute cystitis without hematuria N30.00 [facility] [address] [facility] [id number] [place] [id number] Apr, [facility] [address], [place] [address]- 7285 Apr, Fibromyalgia M79.7 [facility] [address], [place] [address]- 0117 Apr, Arthritis M19.90 and Onychomycosis B35.1 [facility] [address] [place] [address] 19027- 9659 Mar, [facility] [id number], [place] [address]- 62[address] Mar, Acute gout involving toe of right foot, unspecified cause M10.9 [facility] [id number], [place] [address]- 5887 Mar, [facility] [id number] [place] [address] 19297- 9327 Feb, [facility] [id number] [place] [address] 93382- 9716 Feb, [facility] [address], [place] [address]- 7768 Feb, Arthritis M19.90 [facility] [address] [place] [id number] [address]- 7[address] 23 Jan, 2015 [facility] [address], [place] [address]- 4434 19 Jan, 2015 [facility] [address], [place] [address]- 5068 16 Jan, 2015 [facility] [id number] [place] [address] 92339- 0579 16 Jan, 2015 [facility] [address] [place] [id number] [place] [address] 53432- 4938 12 Jan, 2016 Coronary artery disease involving cabazon coronary artery, angina presence unspecified, unspecified whether cabazon or transplanted heart I25.10 ; Arthritis M19.90 and Edema, unspecified type R60.9 [facility] [address] [place] [address] 38783- 9055 07 Jan, 2016 [facility] [address] [place] [id number] [place] [address] 86828- 1740 06 Jan, 2016 [facility] [id number] [place] [address] 02363- 9207 Jan, Anxiety F41.9 and Depressive disorder, not elsewhere classified F32.9 [facility] [address], [place] [address]- [address] Dec, Dementia without behavioral disturbance, unspecified dementia type F03.90 and Reactive depression F32.9 [facility] [address], [place] [address]- 0150 Dec, [facility] [id number], [place] [address]- 6596 Dec, [facility] [address] [place] [id number] [place] [address] 35642- 2469 Nov, Depressive disorder, not elsewhere classified F32.9 and Anxiety F41.9 [facility] [address], [place] [address]- 9228 Nov, Coronary artery disease involving cabazon coronary artery, angina presence unspecified, unspecified whether cabazon or transplanted heart I25.10 ; Fibromyalgia M79.7 ; Arthritis M19.90 ; Anxiety F41.9 ; Hyperlipidemia , unspecified hyperlipidemia type E78.5 and Barretts esophagus with dysplasia K22.719 [facility] [address] [facility] [id number] [place] [address]- 7527 Nov, IMMUNIZATIONS No Known Immunizations SOCIAL HISTORY Never Assessed REASON FOR VISIT oxycodone/xanax 01/31/2017 PLAN OF CARE VITAL SIGNS MEDICATIONS Medication Instructions Dosage Frequency Start Date End Date Duration Status Oxycodone HCl 5 mg Orally every 6 hrs, prn pain 1 tablet Jan, 28 days Active Alprazolam 1 MG Orally Once a day, hs 1 tablet 28 days Active RESULTS No Results PROCEDURES No Known procedures INSTRUCTIONS MEDICATIONS ADMINISTERED No Known Medications MEDICAL (GENERAL) HISTORY Type Description Date Medical [...] Hospitalization History cardiac Hospitalization History chest pains Hospitalization History Surgery
--- OUTSIDE RECORDS SUMMARY | 2017-10-27 08:11 | XMS REPORT ---
Author Author NATALIESHANIQUA CYR [facility] Address [address] [place] [address] Care Team Providers Care Reconciliation Specialist Name Role Phone SHANIQUA ESTRADA Unavailable PROBLEMS Type Condition ICD9-CM Code UPZ85-XU Code Onset Dates Condition Status SNOMED Code Problem Essential hypertension I10 Active 59019022 Problem Chronic depression F32.9 Active 578796921 Problem Lumbar radiculopathy M54.16 Active 698280082 Problem Onychomycosis B35.1 Active 865772529 Problem Stage 3 chronic kidney disease N18.3 Active 656964928 Problem Severe episode of recurrent major depressive disorder, without psychotic features F33.2 Active 04552728 Problem Chronic bronchitis, unspecified chronic bronchitis type J42 Active 66303980 Problem Pseudobulbar affect F48.2 Active 89810495 Problem Intractable cyclical vomiting with nausea G43.A1 Active 28284397 Problem Coronary artery disease involving [place] coronary artery, angina presence unspecified, unspecified whether [place] or transplanted heart I25.10 Active 8308902514147 Problem Hyperlipidemia, unspecified hyperlipidemia type E78.5 Active 96712536 Problem Fibromyalgia M79.7 Active 146033811 Problem Anxiety F41.9 Active 58725284 Problem Barretts esophagus with dysplasia K22.719 Active 8235567035861393 Problem Chronic kidney disease, stage 2 (mild) N18.2 Active 729103953 Problem Arthritis M19.90 Active 3532429 Problem Prediabetes R73.03 Active [id number] ALLERGIES No Information ENCOUNTERS Encounter Location Date Diagnosis [facility] [address] [facility] [id number] [address] Oct, [facility] [address] [facility] [id number] [address] Oct, Essential hypertension I10 ; Barretts esophagus with dysplasia K22.719 ; Pseudobulbar affect F48.2 ; Arthritis M19.90 ; Onychomycosis B35.1 and Stage 3 chronic kidney disease N18.3 [facility] [id number] [place] [address] 05963- 0547 September, Arthritis M19.90 [facility] [id number] [place] [address] 00141- 6205 September, [facility] [address] [address]- [address] Aug, Essential hypertension I10 ; Lumbar radiculopathy M54.16 ; Anxiety F41.9 ; Intractable cyclical vomiting with nausea G43.A1 and Pseudobulbar affect F48.2 [facility] [address] 04[address]- 8918 Aug, Arthritis M19.90 [facility] [address] 76549- 0428 Jul, Intractable cyclical vomiting with nausea G43.A1 and Anxiety F41.9 [facility] [id number] [place] [address] 32019- 5180 Jul, [facility] [address] 97921- 2479 Jul, Anxiety F41.9 and Arthritis M19.90 [facility] [id number] [place] [address] 04212- 8352 Jul, Severe episode of recurrent major depressive disorder, without psychotic features F33.2 and Neurocognitive disorder R41.9 [facility] [id number] [place] [address] 36990- 1069 Jun, [facility] [address] 44689- 8692 Jun, Lumbar radiculopathy M54.16 ; Essential hypertension I10 ; Anxiety F41.9 and Chronic bronchitis, unspecified chronic bronchitis type J42 [facility] [address] 21986- 4422 15 Jun, 2017 Anxiety F41.9 [facility] [id number] [place] [address] 07563- 7576 14 Jun, 2017 [facility] [id number] [place] [address] 62602- 9046 12 Jun, 2017 Arthritis M19.90 [facility] [id number] [place] [address] 40722- 9616 05 Jun, 2017 [facility] [id number] [place] [address] 78389- 1986 05 Jun, 2017 [facility] [id number] [place] [address] 86180- 1185 May, [facility] [id number] [place] [address] 03518- 1090 May, [facility] [id number] [place] [address] 09588- 9164 May, HPV (human papilloma virus) infection B97.7 [facility] [id number] [place] [address] 74695- 6560 May, Anxiety F41.9 and Arthritis M19.90 [facility] [id number] [place] [address] 00840- 2903 Apr, [facility] [id number] [place] [address] 76655- 9586 Apr, [facility] [id number] [place] [address] 88407- 4204 Apr, Colon cancer screening Z12.11 [facility] [id number] [place] [address] 77362- 8646 Apr, [facility] [id number] [place] [address] 92891- 3057 Apr, [facility] [id number] [place] [address] 26127- 1538 Apr, Arthritis M19.90 and Anxiety F41.9 [facility] [id number] [place] [address] 65891- 0958 30 Mar, 2017 Well woman exam Z01.419 and Colon cancer screening Z12.11 [facility] [id number] [place] [address] 07494- 0113 14 Mar, 2017 [facility] [address] 45398- 5117 13 Mar, 2017 Anxiety F41.9 and Arthritis M19.90 [facility] [address] 35080- 7031 19 Feb, 2017 Encounter for immunization Z23 ; Essential hypertension I10 ; Lumbar radiculopathy M54.16 ; Chronic depression F32.9 ; Routine adult health maintenance Z00.00 and Chronic bronchitis, unspecified chronic bronchitis type J42 [place] [id number] [place] [address] 97703- 8515 Feb, Arthritis M19.90 and Anxiety F41.9 [facility] [id number] [place] [address] 35503- 9734 Jan, Arthritis M19.90 and Anxiety F41.9 [facility] [id number] [place] [address] 95212- 9037 Dec, Arthritis M19.90 and Anxiety F41.9 [facility] [id number] [place] [address] 30859- 6055 Dec, Lumbar radiculopathy M54.16 and Chronic depression F32.9 [facility] [id number] [place] [address] 49493- 4425 Dec, [facility] [id number] [place] [address] 73622- 0266 Dec, Foot drop, right foot M21.371 ; Coronary artery disease involving [place] coronary artery, angina presence unspecified, unspecified whether [place] or transplanted heart I25.10 and Depressive disorder, not elsewhere classified F32.9 [facility] [id number] [place] [address] 83273- 3210 Nov, Arthritis M19.90 [facility] [id number] [place] [address] 75988- 8033 Nov, [facility] [id number] [place] [address] 06582- 7743 Oct, [facility] [address] 98385- 8153 Oct, Essential hypertension I10 ; Anxiety F41.9 ; Arthritis M19.90 and Fibromyalgia M79.7 [facility] [address] 72682- 7695 September, Anxiety F41.9 [facility] [id number] [place] [address] 45650- 1473 September, Arthritis M19.90 [facility] [id number] [place] [address] 18510- 3335 Aug, Dental examination Z01.20 [facility] [address] 09208- 0186 Aug, Anxiety F41.9 [facility] [id number] [place] [address] 66342- 7789 Aug, [facility] [id number] [place] [address] 49925- 6271 Aug, Anxiety F41.9 [facility] [id number] [place] [address] 23809- 0622 Aug, Essential hypertension I10 and Arthritis M19.90 [facility] [id number] [place] [address] 36504- 0001 Aug, Depressive disorder, not elsewhere classified F32.9 [facility] [id number] [place] [address] 92510- 3073 Jul, Local infection of the skin and subcutaneous tissue, unspecified L08.9 and Abrasion, unspecified lesser toe(s), sequela S90.416S [facility] [id number] [place] [address] 19335- 0342 Jul, Prediabetes R73.03 and Essential hypertension I10 [facility] [id number] [place] [address] 82033- 8676 Jul, Abnormal glucose level R73.09 [facility] [id number] [place] [address] [id number] Jul, [facility] [id number] [place] [address] 62279- 9589 17 Jul, 2016 Abnormal glucose level R73.09 [facility] [id number] [place] [address] 25416- 0506 16 Jul, 2016 Fibromyalgia M79.7 ; Arthritis M19.90 ; Chronic kidney disease, stage 2 (mild) N18.2 and Depressive disorder, not elsewhere classified F32.9 [facility] [id number] [place] [address] 60849- 5348 Jul, [facility] [id number] [place] [address] 29367- 4832 Jul, [facility] [id number] [place] [address] 64750- 5425 Jul, [facility] [id number] [place] [address] 07500- 6419 Jul, Arthritis M19.90 ; Depressive disorder, not elsewhere classified F32.9 ; Fibromyalgia M79.7 and Constipation, unspecified constipation type K59.00 [facility] [id number] [place] [address] 78101- 0579 15 Jun, 2016 Anxiety F41.9 [facility] [id number] [place] [address] 16676- 2345 14 Jun, 2016 Anxiety F41.9 and Fibromyalgia M79.7 [facility] [address] [place] [address]- 7332 11 Jun, 2016 [facility] [address] [address]- 7021 10 Jun, 2016 Arthritis M19.90 ; Depressive disorder, not elsewhere classified F32.9 ; Barretts esophagus with dysplasia K22.719 ; Edema, unspecified type R60.9 and Fibromyalgia M79.7 [facility] [id number] [place] [address] 72114- 2646 06 Jun, 2016 [facility] [id number] [place] [address] 60745- 7331 May, [facility] [id number] [place] [address] 49229- 7152 May, Dyspnea on exertion R06.09 ; Coronary artery disease involving [place] coronary artery, angina presence unspecified, unspecified whether [place] or transplanted heart I25.10 and Arthritis M19.90 [facility] [address] [address]- 4183 May, [facility] [id number] [place] [address] 70977- 4715 Apr, Arthritis M19.90 [facility] [address] [address] Apr, Arthritis M19.90 and Acute cystitis without hematuria N30.00 [facility] [place] [address] [facility] [id number] [place] [id number] Apr, [facility] [address] [place] [address] [id number] [address]- 0619 Apr, Fibromyalgia M79.7 [facility] [address] [address]- 0509 Apr, Arthritis M19.90 and Onychomycosis B35.1 [facility] [address] [address]- 0853 Mar, [facility] [id number] [address]- 1592 17 Mar, 2016 Acute gout involving toe of right foot, unspecified cause M10.9 [facility] [id number] [place] [address] 64688- 5557 Mar, [facility] [address] [place] [address] 49792- 5205 Feb, [facility] [id number] [place] [address] 38854- 4160 Feb, [facility] [id number] [place] [address] 72316- 4219 Feb, Arthritis M19.90 [facility] [id number] [place] [address] 01343- 0310 23 Jan, 2016 [facility] [id number] [place] [address] 26522- 2380 19 Jan, 2016 [facility] [address] [place] [address] 24365- 6348 16 Jan, 2016 [facility] [id number] [place] [address] 61740- 6573 16 Jan, 2016 [facility] [id number] [place] [address] 72497- 8927 12 Jan, 2016 Coronary artery disease involving [place] coronary artery, angina presence unspecified, unspecified whether [place] or transplanted heart I25.10 ; Arthritis M19.90 and Edema, unspecified type R60.9 [facility] [address] [address]- 9285 07 Jan, 2016 [facility] [id number] [place] [address] 64493- 6821 06 Jan, 2016 [facility] [id number] [place] [address] 37473- 4550 02 Jan, 2016 Anxiety F41.9 and Depressive disorder, not elsewhere classified F32.9 [facility] [id number] [place] [address] 41374- 4455 Dec, Dementia without behavioral disturbance, unspecified dementia type F03.90 and Reactive depression F32.9 [facility] [address] [address]- 0581 Dec, [facility] [id number] [address]- 1306 Dec, [place] [place] [address] [address]- 3821 Nov, Depressive disorder, not elsewhere classified F32.9 and Anxiety F41.9 [facility] [id number] [address]- 0290 Nov, Coronary artery disease involving [place] coronary artery, angina presence unspecified, unspecified whether [place] or transplanted heart I25.10 ; Fibromyalgia M79.7 ; Arthritis M19.90 ; Anxiety F41.9 ; Hyperlipidemia , unspecified hyperlipidemia type E78.5 and Barretts esophagus with dysplasia K22.719 [facility] [place] [id number] [address]- 7163 Nov, IMMUNIZATIONS No Known Immunizations SOCIAL HISTORY Never Assessed REASON FOR VISIT Lab PLAN OF CARE VITAL SIGNS MEDICATIONS Unknown Medications RESULTS Name Result Date Reference Range HEMOCCULT (IN HOUSE) 2017-04-13 RESULTS Negative Control + Lot # [id number] Exp date 05/2018 HEMOCCULT (IN HOUSE)-Additional 2017-04-13 RESULTS Positive Control + Lot # [id number] Exp Date 05/2018 PROCEDURES Procedure Date Ordered Result Body Site TEST FOR BLOOD, FECES Apr 26, 2017 INSTRUCTIONS MEDICATIONS ADMINISTERED No Known Medications MEDICAL [...]
--- OUTSIDE RECORDS SUMMARY | 2017-10-27 08:12 | XMS REPORT ---
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 Name Role Phone DELMI BYRNES Unavailable PROBLEMS Type Condition ICD9-CM Code GRA45-SU Code Onset Dates Condition Status SNOMED Code Problem Essential hypertension I10 Active 90263816 Problem Chronic depression F32.9 Active 212717107 Problem Lumbar radiculopathy M54.16 Active 229505929 Problem Onychomycosis B35.1 Active 664946894 Problem Stage 3 chronic kidney disease N18.3 Active 045952016 Problem Severe episode of recurrent major depressive disorder, without psychotic features F33.2 Active 36196546 Problem Chronic bronchitis, unspecified chronic bronchitis type J42 Active 78987384 Problem Pseudobulbar affect F48.2 Active 62433300 Problem Intractable cyclical vomiting with nausea G43.A1 Active 84496353 Problem Coronary artery disease involving [place] coronary artery, angina presence unspecified, unspecified whether [place] or transplanted heart I25.10 Active 8059672743096 Problem Hyperlipidemia, unspecified hyperlipidemia type E78.5 Active 85337753 Problem Fibromyalgia M79.7 Active 547056298 Problem Anxiety F41.9 Active 59089051 Problem Barretts esophagus with dysplasia K22.719 Active 5073178151635720 Problem Chronic kidney disease, stage 2 (mild) N18.2 Active 223820167 Problem Arthritis M19.90 Active 1975880 Problem Prediabetes R73.03 Active 102005885 ALLERGIES No Information ENCOUNTERS Encounter Location Date Diagnosis [facility] [address] [facility] [id number] [address] Oct, [facility] [id number] [address] Oct, Essential hypertension I10 ; Barretts esophagus with dysplasia K22.719 ; Pseudobulbar affect F48.2 ; Arthritis M19.90 ; Onychomycosis B35.1 and Stage 3 chronic kidney disease N18.3 [place] [id number] [place] [address] 03875- 4386 September, Arthritis M19.90 [place] [id number] [place] [address] 65927- 8206 September, [place] [id number] [place] [address] 34959- 4052 Aug, Essential hypertension I10 ; Lumbar radiculopathy M54.16 ; Anxiety F41.9 ; Intractable cyclical vomiting with nausea G43.A1 and Pseudobulbar affect F48.2 [place] [id number] [place] [address] 43418- 2473 Aug, Arthritis M19.90 [place] [id number] [place] [address] 32729- 3585 Jul, Intractable cyclical vomiting with nausea G43.A1 and Anxiety F41.9 [place] [id number] [place] [address] 24792- 8705 Jul, [place] [id number] [place] [address] 50690- 2901 Jul, Anxiety F41.9 and Arthritis M19.90 [place] [id number] [place] [address] 45229- 3378 Jul, Severe episode of recurrent major depressive disorder, without psychotic features F33.2 and Neurocognitive disorder R41.9 [place] [id number] [place] [address] 94684- 9873 Jun, [place] [id number] [place] [address] 10826- 3793 Jun, Lumbar radiculopathy M54.16 ; Essential hypertension I10 ; Anxiety F41.9 and Chronic bronchitis, unspecified chronic bronchitis type J42 [place] [id number] [place] [address] 68386- 1856 15 Jun, 2017 Anxiety F41.9 [facility] [address] [address] 2546 14 Jun, 2017 [facility] [address] [place] [address] 80326 2546 12 Jun, 2017 Arthritis M19.90 [facility] [id number] [place] [address] 01955 2546 05 Jun, 2017 [facility] [id number] [place] [address] 09376 2546 05 Jun, 2017 [facility] [id number] [place] [address] 29516- 3996 May, [facility] [id number] [place] [address] 32723- 5686 May, [facility] [id number] [place] [address] 74206- 6183 May, HPV (human papilloma virus) infection B97.7 [facility] [address] [place] [address] 78468- 5846 May, Anxiety F41.9 and Arthritis M19.90 [facility] [address], [place] [address] 69[address] Apr, [facility] [address] [place] [address] 19816- 9996 Apr, [facility] [address] [address] 2546 13 Apr, 2017 Colon cancer screening Z12.11 [facility] [address] [place] [address] 83587- 6576 Apr, [facility] [address], [place] [address] 2546 Apr, [facility] [address] [place] [address] 38163- 2326 07 Apr, 2017 Arthritis M19.90 and Anxiety F41.9 [place] [id number] [place] [address] 45683- 6359 30 Mar, 2017 Well woman exam Z01.419 and Colon cancer screening Z12.11 [place] [id number] [place] [address] 49275- 6459 14 Mar, 2017 [place] [address] 34392- 5730 13 Mar, 2017 Anxiety F41.9 and Arthritis M19.90 [place] [id number] [place] [address] 72678- 8275 19 Feb, 2017 Encounter for immunization Z23 ; Essential hypertension I10 ; Lumbar radiculopathy M54.16 ; Chronic depression F32.9 ; Routine adult health maintenance Z00.00 and Chronic bronchitis, unspecified chronic bronchitis type J42 [place] [id number] [place] [address] 69680- 9601 Feb, Arthritis M19.90 and Anxiety F41.9 [place] [id number] [place] [address] 99893- 5563 Jan, Arthritis M19.90 and Anxiety F41.9 [place] [id number] [place] [address] 10472- 0569 Dec, Arthritis M19.90 and Anxiety F41.9 [place] [id number] [place] [address] 36828- 1966 Dec, Lumbar radiculopathy M54.16 and Chronic depression F32.9 [place] [id number] [place] [address] 83774- 7913 Dec, [place] [address] 63004- 6188 Dec, Foot drop, right foot M21.371 ; Coronary artery disease involving [place] coronary artery, angina presence unspecified, unspecified whether [place] or transplanted heart I25.10 and Depressive disorder, not elsewhere classified F32.9 [facility] [id number] [place] [address] 44053- 7571 Nov, Arthritis M19.90 [facility] [id number] [place] [address] 84042- 9682 Nov, [facility] [id number] [place] [address] 07810- 3783 Oct, [facility] [address] 59689- 4212 Oct, Essential hypertension I10 ; Anxiety F41.9 ; Arthritis M19.90 and Fibromyalgia M79.7 [facility] [address] 55823- 2754 September, Anxiety F41.9 [facility] [address] 13521- 2260 September, Arthritis M19.90 [facility] [address] 19934- 4798 Aug, Dental examination Z01.20 [facility] [address] 73246- 6320 Aug, Anxiety F41.9 [facility] [id number] [place] [address] 54837- 8307 Aug, [facility] [id number] [place] [address] 13995- 4003 Aug, Anxiety F41.9 [facility] [id number] [place] [address] 75019- 4538 Aug, Essential hypertension I10 and Arthritis M19.90 [facility] [address] 61746- 2312 Aug, Depressive disorder, not elsewhere classified F32.9 [facility] [id number] [place] [address] 64879- 8147 Jul, Abrasion, unspecified lesser toe(s), sequela S90.416S and Local infection of the skin and subcutaneous tissue, unspecified L08.9 [facility] [address] [place] [address] 66372- 7419 Jul, Prediabetes R73.03 and Essential hypertension I10 [facility] [address] [place] [address] 31247- 4279 Jul, Abnormal glucose level R73.09 [place] [id number] [place] [address] [id number] Jul, [facility] [id number] [place] [address] 13347- 8282 Jul, Abnormal glucose level R73.09 [facility] [id number] [place] [address] 70801- 3162 16 Jul, 2016 Fibromyalgia M79.7 ; Arthritis M19.90 ; Chronic kidney disease, stage 2 (mild) N18.2 and Depressive disorder, not elsewhere classified F32.9 [facility] [address] [place] [address] 62223- 6718 Jul, [place] [id number] [place] [address] 48130- 4299 Jul, [facility] [id number] [place] [address] 16433- 5096 Jul, [facility] [id number] [place] [address] 27595- 3526 Jul, Arthritis M19.90 ; Depressive disorder, not elsewhere classified F32.9 ; Fibromyalgia M79.7 and Constipation, unspecified constipation type K59.00 [facility] [id number] [place] [address] 27708- 1895 15 Jun, 2016 Anxiety F41.9 [facility] [id number] [place] [address] 87405- 8437 14 Jun, 2016 Anxiety F41.9 and Fibromyalgia M79.7 [place] [id number] [place] [address] 64585- 1378 11 Jun, 2016 [facility] [address], [place] [address]- 6504 10 Jun, 2016 Arthritis M19.90 ; Depressive disorder, not elsewhere classified F32.9 ; Barretts esophagus with dysplasia K22.719 ; Edema, unspecified type R60.9 and Fibromyalgia M79.7 [facility] [address], [place] [address]- 1217 06 Jun, 2016 [facility] [address], [place] [address]- 9714 May, [place] [id number] [place] [address] 79799- 5503 May, Dyspnea on exertion R06.09 ; Coronary artery disease involving [place] coronary artery, angina presence unspecified, unspecified whether [place] or transplanted heart I25.10 and Arthritis M19.90 [place] [address], [place] [address]- 0486 May, [facility] [address], [place] [address]- 8190 Apr, Arthritis M19.90 [facility] [address], [place] [address]- 1582 Apr, Arthritis M19.90 and Acute cystitis without hematuria N30.00 [facility] [place] [address] [facility] [id number] [id number] Apr, [facility] [address], [place] [address]- 9655 Apr, Fibromyalgia M79.7 [facility] [address], [place] [address]- 7312 Apr, Arthritis M19.90 and Onychomycosis B35.1 [facility] [address], [place] [address]- 7023 Mar, [place] [id number] [address]- 3854 Mar, Acute gout involving toe of right foot, unspecified cause M10.9 [facility] [id number] [place] [address] 08834- 9527 Mar, [facility] [id number] [place] [address] 09938- 7628 Feb, [facility] [id number] [place] [address] 45512- 2960 Feb, [facility] [id number] [place] [address] 89707- 7643 Feb, Arthritis M19.90 [facility] [id number] [place] [address] 39707- 5917 23 Jan, 2016 [facility] [id number] [place] [address] 07076- 1139 Jan, [facility] [id number] [place] [address] 79339- 1159 16 Jan, 2016 [facility] [id number] [place] [address] 39027- 8705 16 Jan, 2016 [facility] [id number] [place] [address] 50862- 9070 12 Jan, 2016 Coronary artery disease involving [place] coronary artery, angina presence unspecified, unspecified whether [place] or transplanted heart I25.10 ; Arthritis M19.90 and Edema, unspecified type R60.9 [facility] [address], [place] [address]- 8529 07 Jan, 2016 [facility] [id number] [place] [address] 94200- 9716 06 Jan, 2016 [facility] [id number] [place] [address] 41742- 5633 02 Jan, 2016 Anxiety F41.9 and Depressive disorder, not elsewhere classified F32.9 [facility] [id number] [place] [address] 37733- 5894 Dec, Dementia without behavioral disturbance, unspecified dementia type F03.90 and Reactive depression F32.9 [place] [address], [place] [address]- 0179 Dec, [place] [address] [place] [address] 69722- 0698 Dec, [place] [id number] [place] [address] 18496- 1644 Nov, Depressive disorder, not elsewhere classified F32.9 and Anxiety F41.9 [place] [address], [place] [address]- 9339 Nov, Coronary artery disease involving [place] coronary artery, angina presence unspecified, unspecified whether [place] or transplanted heart I25.10 ; Fibromyalgia M79.7 ; Arthritis M19.90 ; Anxiety F41.9 ; Hyperlipidemia , unspecified hyperlipidemia type E78.5 and Barretts esophagus with dysplasia K22.719 [place] [address], [place] [address]- 6486 Nov, IMMUNIZATIONS No Known Immunizations SOCIAL HISTORY Never Assessed [facility] PLAN OF CARE VITAL SIGNS MEDICATIONS Unknown [...]
--- OUTSIDE RECORDS SUMMARY | 2017-10-27 08:16 | XMS REPORT ---
Author Author NATALIESHANIQUA CYR [facility] Address [address] [place] [address] Care Team Providers Care Neck Pinner Name Role Phone SHANIQUA ESTRADA Unavailable PROBLEMS Type Condition ICD9-CM Code HIF99-CM Code Onset Dates Condition Status SNOMED Code Problem Essential hypertension I10 Active 52558545 Problem Chronic depression F32.9 Active 710239221 Problem Lumbar radiculopathy M54.16 Active 212870185 Problem Onychomycosis B35.1 Active 042670327 Problem Stage 3 chronic kidney disease N18.3 Active 139720331 Problem Severe episode of recurrent major depressive disorder, without psychotic features F33.2 Active 53328619 Problem Chronic bronchitis, unspecified chronic bronchitis type J42 Active 10593477 Problem Pseudobulbar affect F48.2 Active 64023734 Problem Intractable cyclical vomiting with nausea G43.A1 Active 93950720 Problem Coronary artery disease involving [place] coronary artery, angina presence unspecified, unspecified whether [place] or transplanted heart I25.10 Active 2897874650224 Problem Hyperlipidemia, unspecified hyperlipidemia type E78.5 Active 13227787 Problem Fibromyalgia M79.7 Active 481673837 Problem Anxiety F41.9 Active 78780216 Problem Barretts esophagus with dysplasia K22.719 Active [id number] Problem Chronic kidney disease, stage 2 (mild) N18.2 Active 533468133 Problem Arthritis M19.90 Active 3858862 Problem Prediabetes R73.03 Active 422744015 ALLERGIES No Information ENCOUNTERS Encounter Location Date Diagnosis [facility] [address] [facility] [id number] [address] Oct, [facility] [address] [facility] [id number] [address] Oct, Essential hypertension I10 ; Barretts esophagus with dysplasia K22.719 ; Pseudobulbar affect F48.2 ; Arthritis M19.90 ; Onychomycosis B35.1 and Stage 3 chronic kidney disease N18.3 [facility] [id number] [place] [address] 76188- 7498 September, Arthritis M19.90 [facility] [id number] [place] [address] 73292- 6928 September, [facility] [address] [address]- [address] Aug, Essential hypertension I10 ; Lumbar radiculopathy M54.16 ; Anxiety F41.9 ; Intractable cyclical vomiting with nausea G43.A1 and Pseudobulbar affect F48.2 [facility] [address] 28830- 9845 Aug, Arthritis M19.90 [facility] [address] 49634- 6515 Jul, Intractable cyclical vomiting with nausea G43.A1 and Anxiety F41.9 [facility] [id number] [place] [address] 52983- 9363 Jul, [facility] [address] 52341- 2640 Jul, Anxiety F41.9 and Arthritis M19.90 [facility] [id number] [place] [address] 57564- 7414 Jul, Severe episode of recurrent major depressive disorder, without psychotic features F33.2 and Neurocognitive disorder R41.9 [facility] [id number] [place] [address] 88747- 8055 Jun, [facility] [address] 85549- 6593 Jun, Lumbar radiculopathy M54.16 ; Essential hypertension I10 ; Anxiety F41.9 and Chronic bronchitis, unspecified chronic bronchitis type J42 [facility] [address] 45559- 0776 15 Jun, 2017 Anxiety F41.9 [facility] [id number] [place] [address] 56540- 0106 14 Jun, 2017 [facility] [id number] [place] [address] 32752- 4996 12 Jun, 2017 Arthritis M19.90 [facility] [id number] [place] [address] 38945- 8586 05 Jun, 2017 [facility] [id number] [place] [address] 15229- 6486 05 Jun, 2017 [facility] [id number] [place] [address] 83551- 3826 May, [facility] [id number] [place] [address] 72501- 3087 May, [facility] [id number] [place] [address] 63891- 4363 May, HPV (human papilloma virus) infection B97.7 [facility] [id number] [place] [address] 63409- 4770 May, Anxiety F41.9 and Arthritis M19.90 [facility] [id number] [place] [address] 14358- 0344 Apr, [facility] [id number] [place] [address] 52201- 5326 Apr, [facility] [id number] [place] [address] 68750- 2274 Apr, Colon cancer screening Z12.11 [facility] [id number] [place] [address] 23452- 2146 Apr, [facility] [id number] [place] [address] 95777- 1911 Apr, [facility] [id number] [place] [address] 75386- 0422 Apr, Arthritis M19.90 and Anxiety F41.9 [facility] [id number] [place] [address] 15591- 1297 30 Mar, 2017 Well woman exam Z01.419 and Colon cancer screening Z12.11 [facility] [id number] [place] [address] 69871- 4207 14 Mar, 2017 [facility] [address] 27177- 4627 13 Mar, 2017 Anxiety F41.9 and Arthritis M19.90 [facility] [address] 73527- 0715 19 Feb, 2017 Encounter for immunization Z23 ; Essential hypertension I10 ; Lumbar radiculopathy M54.16 ; Chronic depression F32.9 ; Routine adult health maintenance Z00.00 and Chronic bronchitis, unspecified chronic bronchitis type J42 [facility] [id number] [place] [address] 61627- 0558 Feb, Arthritis M19.90 and Anxiety F41.9 [facility] [id number] [place] [address] 19547- 3112 Jan, Arthritis M19.90 and Anxiety F41.9 [facility] [id number] [place] [address] 70564- 4153 Dec, Arthritis M19.90 and Anxiety F41.9 [facility] [id number] [place] [address] 61048- 2309 Dec, Lumbar radiculopathy M54.16 and Chronic depression F32.9 [facility] [id number] [place] [address] 88165- 3197 Dec, [facility] [id number] [place] [address] 16268- 9483 Dec, Foot drop, right foot M21.371 ; Coronary artery disease involving [place] coronary artery, angina presence unspecified, unspecified whether [place] or transplanted heart I25.10 and Depressive disorder, not elsewhere classified F32.9 [facility] [id number] [place] [address] 40341- 4656 Nov, Arthritis M19.90 [facility] [id number] [place] [address] 19302- 3039 Nov, [facility] [id number] [place] [address] 96452- 6679 Oct, [facility] [address] 60159- 3224 Oct, Essential hypertension I10 ; Anxiety F41.9 ; Arthritis M19.90 and Fibromyalgia M79.7 [facility] [address] 08587- 8109 September, Anxiety F41.9 [facility] [id number] [place] [address] 65011- 2799 September, Arthritis M19.90 [facility] [id number] [place] [address] 39051- 6579 Aug, Dental examination Z01.20 [facility] [address] 93466- 5643 Aug, Anxiety F41.9 [facility] [id number] [place] [address] 92463- 7146 Aug, [facility] [id number] [place] [address] 79830- 0028 Aug, Anxiety F41.9 [facility] [id number] [place] [address] 87328- 7218 Aug, Essential hypertension I10 and Arthritis M19.90 [facility] [id number] [place] [address] 30966- 7685 Aug, Depressive disorder, not elsewhere classified F32.9 [facility] [id number] [place] [address] 07965- 6045 Jul, Local infection of the skin and subcutaneous tissue, unspecified L08.9 and Abrasion, unspecified lesser toe(s), sequela S90.416S [facility] [id number] [place] [address] 64153- 0841 Jul, Prediabetes R73.03 and Essential hypertension I10 [facility] [id number] [place] [address] 81801- 6493 Jul, Abnormal glucose level R73.09 [facility] [id number] [place] [address] [id number] Jul, [facility] [id number] [place] [address] 28834- 0424 17 Jul, 2016 Abnormal glucose level R73.09 [facility] [id number] [place] [address] 61945- 9907 16 Jul, 2016 Fibromyalgia M79.7 ; Arthritis M19.90 ; Chronic kidney disease, stage 2 (mild) N18.2 and Depressive disorder, not elsewhere classified F32.9 [facility] [id number] [place] [address] 40262- 0134 Jul, [facility] [id number] [place] [address] 27286- 7903 Jul, [facility] [id number] [place] [address] 67987- 5809 Jul, [facility] [id number] [place] [address] 83710- 7781 Jul, Arthritis M19.90 ; Depressive disorder, not elsewhere classified F32.9 ; Fibromyalgia M79.7 and Constipation, unspecified constipation type K59.00 [facility] [id number] [place] [address] 63859- 5778 15 Jun, 2016 Anxiety F41.9 [facility] [id number] [place] [address] 20481- 9841 14 Jun, 2016 Anxiety F41.9 and Fibromyalgia M79.7 [facility] [address] [place] [address]- 2054 11 Jun, 2016 [facility] [address] [address]- 2482 10 Jun, 2016 Arthritis M19.90 ; Depressive disorder, not elsewhere classified F32.9 ; Barretts esophagus with dysplasia K22.719 ; Edema, unspecified type R60.9 and Fibromyalgia M79.7 [facility] [id number] [place] [address] 06569- 5031 06 Jun, 2016 [facility] [id number] [place] [address] 55676- 8740 May, [facility] [id number] [place] [address] 13137- 8031 May, Dyspnea on exertion R06.09 ; Coronary artery disease involving [place] coronary artery, angina presence unspecified, unspecified whether [place] or transplanted heart I25.10 and Arthritis M19.90 [facility] [address] [address]- [address] May, [facility] [address] [place] [address] 86544- 9140 Apr, Arthritis M19.90 [facility] [address] [address]- 6099 Apr, Arthritis M19.90 and Acute cystitis without hematuria N30.00 [facility] [place] [address] [facility] [id number] [place] [id number] Apr, [facility] [id number] [address]- 7364 Apr, Fibromyalgia M79.7 [facility] [address] [address]- 1166 Apr, Arthritis M19.90 and Onychomycosis B35.1 [facility] [address] [address]- 8958 Mar, [facility] [id number] [address]- 7215 17 Mar, 2016 Acute gout involving toe of right foot, unspecified cause M10.9 [facility] [id number] [place] [address] 09801- 2001 Mar, [facility] [address] [place] [address] 54399- 8093 Feb, [facility] [id number] [place] [address] 41055- 8708 Feb, [facility] [id number] [place] [address] 74561- 5962 Feb, Arthritis M19.90 [facility] [id number] [place] [address] 16474- 0321 23 Jan, 2016 [facility] [id number] [place] [address] 59735- 9767 19 Jan, 2016 [facility] [address] [place] [address] 36306- 4614 16 Jan, 2016 [facility] [id number] [place] [address] 68988- 4082 16 Jan, 2016 [facility] [id number] [place] [address] 49483- 8640 12 Jan, 2016 Coronary artery disease involving [place] coronary artery, angina presence unspecified, unspecified whether [place] or transplanted heart I25.10 ; Arthritis M19.90 and Edema, unspecified type R60.9 [facility] [address] [address]- 2148 07 Jan, 2016 [facility] [id number] [place] [address] 62866- 9075 06 Jan, 2016 [facility] [address] [place] [address] 18760- 1399 02 Jan, 2016 Anxiety F41.9 and Depressive disorder, not elsewhere classified F32.9 [facility] [id number] [place] [address] 91611- 5072 Dec, Dementia without behavioral disturbance, unspecified dementia type F03.90 and Reactive depression F32.9 [facility] [id number] [address]- 0221 Dec, [facility] [address] [address]- 3823 Dec, [facility] [address] [address]- 2532 Nov, Depressive disorder, not elsewhere classified F32.9 and Anxiety F41.9 [facility] [id number] [address]- 6235 Nov, Coronary artery disease involving [place] coronary artery, angina presence unspecified, unspecified whether [place] or transplanted heart I25.10 ; Fibromyalgia M79.7 ; Arthritis M19.90 ; Anxiety F41.9 ; Hyperlipidemia , unspecified hyperlipidemia type E78.5 and Barretts esophagus with dysplasia K22.719 [facility] [id number] [address]- 2562 Nov, IMMUNIZATIONS No Known Immunizations SOCIAL HISTORY Never Assessed REASON FOR VISIT Mammo results chart update PLAN OF CARE VITAL SIGNS MEDICATIONS Unknown [...]
[2017-10-27] MEDS ORDERED: D5 LR IV SOLUTION 1,000 ML IV ONE (08:17)
--- OUTSIDE RECORDS SUMMARY | 2017-10-27 08:17 | XMS REPORT ---
Author Author DELMI BYRNES Organization [facility] Address [address] [place] [address] Care Team Providers Care Beauty Operator Apprentice Name Role Phone DELMI BYRNES Unavailable PROBLEMS Type Condition ICD9-CM Code TFA43-OW Code Onset Dates Condition Status SNOMED Code Problem Essential hypertension I10 Active 46469193 Problem Chronic depression F32.9 Active 108674824 Problem Lumbar radiculopathy M54.16 Active 620328958 Problem Onychomycosis B35.1 Active 516527617 Problem Stage 3 chronic kidney disease N18.3 Active 800303149 Problem Severe episode of recurrent major depressive disorder, without psychotic features F33.2 Active 88241565 Problem Chronic bronchitis, unspecified chronic bronchitis type J42 Active 87140844 Problem Pseudobulbar affect F48.2 Active 57879857 Problem Intractable cyclical vomiting with nausea G43.A1 Active 27599727 Problem Coronary artery disease involving hopi coronary artery, angina presence unspecified, unspecified whether hopi or transplanted heart I25.10 Active 2662353475266 Problem Hyperlipidemia, unspecified hyperlipidemia type E78.5 Active 63729282 Problem Fibromyalgia M79.7 Active 544524428 Problem Anxiety F41.9 Active 52750035 Problem Barretts esophagus with dysplasia K22.719 Active 4008574442225074 Problem Chronic kidney disease, stage 2 (mild) N18.2 Active 351712033 Problem Arthritis M19.90 Active 3552106 Problem Prediabetes R73.03 Active 386375191 ALLERGIES No Information ENCOUNTERS Encounter Location Date Diagnosis [facility] [address] [facility] [id number] [address] Oct, [facility] [id number] [address] Oct, Essential hypertension I10 ; Barretts esophagus with dysplasia K22.719 ; Pseudobulbar affect F48.2 ; Arthritis M19.90 ; Onychomycosis B35.1 and Stage 3 chronic kidney disease N18.3 [place] [id number] [place] [address] 37063- 7875 September, Arthritis M19.90 [place] [id number] [place] [address] 21013- 6995 September, [place] [id number] [place] [address] 99394- 6309 Aug, Essential hypertension I10 ; Lumbar radiculopathy M54.16 ; Anxiety F41.9 ; Intractable cyclical vomiting with nausea G43.A1 and Pseudobulbar affect F48.2 [place] [id number] [place] [address] 07485- 6573 Aug, Arthritis M19.90 [place] [id number] [place] [address] 65717- 9638 Jul, Intractable cyclical vomiting with nausea G43.A1 and Anxiety F41.9 [place] [id number] [place] [address] 44201- 3507 Jul, [place] [id number] [place] [address] 30231- 7787 Jul, Anxiety F41.9 and Arthritis M19.90 [place] [id number] [place] [address] 87241- 7912 Jul, Severe episode of recurrent major depressive disorder, without psychotic features F33.2 and Neurocognitive disorder R41.9 [place] [id number] [place] [address] 30859- 2501 Jun, [place] [id number] [place] [address] 79371- 9997 Jun, Lumbar radiculopathy M54.16 ; Essential hypertension I10 ; Anxiety F41.9 and Chronic bronchitis, unspecified chronic bronchitis type J42 [place] [id number] [place] [address] 13002- 9803 15 Jun, 2017 Anxiety F41.9 [facility] [address] [address] 2546 14 Jun, 2017 [facility] [id number] [place] [address] 90039 2546 12 Jun, 2017 Arthritis M19.90 [facility] [id number] [place] [address] 46812 2546 05 Jun, 2017 [facility] [id number] [place] [address] 74594 2546 05 Jun, 2017 [facility] [id number] [place] [address] 77733- 8326 May, [facility] [id number] [place] [address] 70825- 3126 May, [facility] [id number] [place] [address] 75182- 6708 May, HPV (human papilloma virus) infection B97.7 [facility] [address] [place] [address] 72154- 1426 May, Anxiety F41.9 and Arthritis M19.90 [facility] [address] [address] Apr, [facility] [id number] [place] [address] 65917- 7346 Apr, [facility] [address] [address] 2546 13 Apr, 2017 Colon cancer screening Z12.11 [facility] [address] [place] [address] 72247- 6056 Apr, [facility] [address] [address] 2546 Apr, [facility] [id number] [place] [address] 67015- 4746 07 Apr, 2017 Arthritis M19.90 and Anxiety F41.9 [place] [id number] [place] [address] 24181- 1715 30 Mar, 2017 Well woman exam Z01.419 and Colon cancer screening Z12.11 [place] [id number] [place] [address] 75249- 7309 14 Mar, 2017 [place] [address] 36474- 1267 13 Mar, 2017 Anxiety F41.9 and Arthritis M19.90 [place] [id number] [place] [address] 62897- 0466 19 Feb, 2017 Encounter for immunization Z23 ; Essential hypertension I10 ; Lumbar radiculopathy M54.16 ; Chronic depression F32.9 ; Routine adult health maintenance Z00.00 and Chronic bronchitis, unspecified chronic bronchitis type J42 [place] [id number] [place] [address] 98591- 9519 Feb, Arthritis M19.90 and Anxiety F41.9 [place] [id number] [place] [address] 45663- 2912 Jan, Arthritis M19.90 and Anxiety F41.9 [place] [id number] [place] [address] 77155- 9715 Dec, Arthritis M19.90 and Anxiety F41.9 [place] [id number] [place] [address] 86659- 5154 Dec, Lumbar radiculopathy M54.16 and Chronic depression F32.9 [place] [id number] [place] [address] 52484- 4124 Dec, [place] [address] 97936- 5206 Dec, Foot drop, right foot M21.371 ; Coronary artery disease involving hopi coronary artery, angina presence unspecified, unspecified whether hopi or transplanted heart I25.10 and Depressive disorder, not elsewhere classified F32.9 [facility] [id number] [place] [address] 12695- 9251 Nov, Arthritis M19.90 [facility] [id number] [place] [address] 56542- 3894 Nov, [facility] [id number] [place] [address] 99858- 6207 Oct, [facility] [address] 46831- 8038 Oct, Essential hypertension I10 ; Anxiety F41.9 ; Arthritis M19.90 and Fibromyalgia M79.7 [facility] [address] 25117- 8071 September, Anxiety F41.9 [facility] [id number] [place] [address] 93179- 8993 September, Arthritis M19.90 [facility] [id number] [place] [address] 54144- 2424 Aug, Dental examination Z01.20 [facility] [address] 26248- 2984 Aug, Anxiety F41.9 [facility] [id number] [place] [address] 63209- 2191 Aug, [facility] [id number] [place] [address] 19203- 1532 Aug, Anxiety F41.9 [facility] [id number] [place] [address] 76132- 6981 Aug, Essential hypertension I10 and Arthritis M19.90 [facility] [id number] [place] [address] 77080- 5162 Aug, Depressive disorder, not elsewhere classified F32.9 [facility] [id number] [place] [address] 64049- 8129 Jul, Local infection of the skin and subcutaneous tissue, unspecified L08.9 and Abrasion, unspecified lesser toe(s), sequela S90.416S [facility] [address] [place] [address] 42236- 1032 Jul, Prediabetes R73.03 and Essential hypertension I10 [facility] [id number] [place] [address] 63350- 3639 Jul, Abnormal glucose level R73.09 [place] [id number] [place] [address] [id number] Jul, [facility] [id number] [place] [address] 61209- 7060 Jul, Abnormal glucose level R73.09 [place] [id number] [place] [address] 03510- 5464 16 Jul, 2016 Fibromyalgia M79.7 ; Arthritis M19.90 ; Chronic kidney disease, stage 2 (mild) N18.2 and Depressive disorder, not elsewhere classified F32.9 [place] [id number] [place] [address] 39270- 8438 Jul, [place] [address] 01043- 4921 Jul, [place] [id number] [place] [address] 58995- 1575 Jul, [place] [id number] [place] [address] 85645- 0792 Jul, Arthritis M19.90 ; Depressive disorder, not elsewhere classified F32.9 ; Fibromyalgia M79.7 and Constipation, unspecified constipation type K59.00 [place] [id number] [place] [address] 82108- 0155 15 Jun, 2016 Anxiety F41.9 [place] [id number] [place] [address] 19231- 6160 14 Jun, 2016 Anxiety F41.9 and Fibromyalgia M79.7 [place] [id number] [place] [address] 27088- 7832 11 Jun, 2016 [facility] [address] [address]- 6455 10 Jun, 2016 Arthritis M19.90 ; Depressive disorder, not elsewhere classified F32.9 ; Barretts esophagus with dysplasia K22.719 ; Edema, unspecified type R60.9 and Fibromyalgia M79.7 [facility] [address] [address] 7458 06 Jun, 2016 [facility] [address] [address] 2146 May, [place] [id number] [place] [address] 75222- 7041 May, Dyspnea on exertion R06.09 ; Coronary artery disease involving hopi coronary artery, angina presence unspecified, unspecified whether hopi or transplanted heart I25.10 and Arthritis M19.90 [place] [address] [address] 3316 May, [facility] [address] [address]- 6476 Apr, Arthritis M19.90 [facility] [address] [address]- 0578 Apr, Arthritis M19.90 and Acute cystitis without hematuria N30.00 [facility] [place] [address] [facility] [id number] [place] [id number] Apr, [facility] [address] [address]- 1513 Apr, Fibromyalgia M79.7 [facility] [address] [address]- 2550 Apr, Arthritis M19.90 and Onychomycosis B35.1 [facility] [address] [address]- 6630 Mar, [place] [id number] [address]- 2288 Mar, Acute gout involving toe of right foot, unspecified cause M10.9 [facility] [id number] [place] [address] 02661- 1902 Mar, [facility] [id number] [place] [address] 72436- 4410 Feb, [facility] [id number] [place] [address] 15551- 8210 Feb, [facility] [id number] [place] [address] 88442- 3931 Feb, Arthritis M19.90 [facility] [id number] [place] [address] 00783- 1110 23 Jan, 2016 [facility] [id number] [place] [address] 57442- 4403 Jan, [facility] [id number] [place] [address] 26967- 2231 16 Jan, 2016 [facility] [id number] [place] [address] 19427- 0388 16 Jan, 2016 [facility] [id number] [place] [address] 48319- 5864 12 Jan, 2016 Coronary artery disease involving hopi coronary artery, angina presence unspecified, unspecified whether hopi or transplanted heart I25.10 ; Arthritis M19.90 and Edema, unspecified type R60.9 [facility] [address] [address]- 1836 07 Jan, 2016 [facility] [id number] [place] [address] 47297- 3902 06 Jan, 2016 [facility] [id number] [place] [address] 11210- 4293 02 Jan, 2016 Anxiety F41.9 and Depressive disorder, not elsewhere classified F32.9 [facility] [id number] [place] [address] 12699- 3031 Dec, Dementia without behavioral disturbance, unspecified dementia type F03.90 and Reactive depression F32.9 [place] [address] [address]- 9574 Dec, [place] [id number] [place] [address] 49387- 1428 Dec, [place] [id number] [place] [address] 21724- 7002 Nov, Depressive disorder, not elsewhere classified F32.9 and Anxiety F41.9 [place] [address] [address]- 1141 Nov, Coronary artery disease involving hopi coronary artery, angina presence unspecified, unspecified whether hopi or transplanted heart I25.10 ; Fibromyalgia M79.7 ; Arthritis M19.90 ; Anxiety F41.9 ; Hyperlipidemia , unspecified hyperlipidemia type E78.5 and Barretts esophagus with dysplasia K22.719 [place] [address] [address]- 3786 Nov, IMMUNIZATIONS No Known Immunizations SOCIAL HISTORY Never Assessed REASON FOR VISIT Lab results PLAN OF CARE VITAL SIGNS MEDICATIONS Unknown [...]
--- OUTSIDE RECORDS SUMMARY | 2017-10-27 08:19 | XMS REPORT | Summary of Care ---
Author Author Bernie Kingsley [facility] Unknown Address [address] [place], [place] [id number] Phone Unavailable Care Team Providers Care Lcac Operator Name Role Phone Dimitris Alejandra, Tarik [...] Quantity: 60 Angelo Shanks M.D.* Started 13-Jul-2009 ActiveClopidogrel Bisulfate 75 MG Oral Tablet take one tablet by mouth every day * Quantity: 30 Refills: 5 Aneglo Randhawa M.D.* Started ActiveFurosemide 80 MG Oral Tablet take one tablet by mouth every day * Quantity: 30 Refills: 5 Angelo Shanks M.D.* Started 02-Jan-2009 ActiveLoratadine 10 MG Oral Tablet take one tablet by mouth every day * Quantity: 30 Refills: 5 Angelo Shanks M.D.* Started 13-Jul-2009 ActiveLisinopril 10 MG Oral Tablet take 1 [...] BREAKFAST DAILY. * Quantity: 30 Refills: 5 Merritt, October Justyn* Started 08-Aug-2013 ActiveRanitidine HCl - 300 MG Oral Tablet Take 1 tablet at night * Quantity: 30 Refills: 4 Merritt, Italia Justyn* Started 18-Jan-2011 ActiveGabapentin 300 MG Oral Capsule TAKE ONE CAPSULE BY MOUTH TWICE DAILY * Quantity: 60 Refills: 0 Angelo Shanks M.D.* Started 01-Jun-2012 ActiveZolpidem Tartrate 10 MG Oral Tablet TAKE 1 TABLET BY MOUTH EVERY DAY AT BEDTIME NEEDED * Quantity: 30 Refills: 2 Angelo Shanks M.D.* Started 30-Jul-2012 ActiveFurosemide 80 MG Oral Tablet take one tablet by mouth every day * Quantity: 30 Refills: 5 Angelo Shanks M.D.* Started 16-Feb-2010 ActivePredniSONE 10 MG Oral Tablet iv po daily to start taper by 1 tab q3 * Quantity: 30 Refills: 0 Angelo Shanks M.D.* Started ActiveMeloxicam 15 MG Oral Tablet TAKE 1 TABLET BY MOUTH EVERY DAY WITH FOOD * Quantity: 30 Refills: 3 Donnie Blanco M.D.* Started 19-Aug-2013 ActiveTriamcinolone Acetonide 55 MCG/ACT INHA USE ONE SPRAY IN EACH NOSTRIL EVERY DAY * Quantity: 16.5 Refills: 0 Angelo Shanks M.D.* Started 02-Feb-2011 ActiveLyrica 150 MG Oral Capsule TAKE 1 [...] Refills: 0 Angelo Randhawa M.D.* Started 23-Jan-2014 ActiveALPRAZolam 1 [...] Refills: 0 Donnie Blanco M.D.* Started 28-Jan-2011 ActiveOxyCONTIN 20 MG Oral Tablet ER 12 Hour Abuse-Deterrent TAKE 1 TABLET Q 12HRSMUST LAST 30 DAYSMAY FILL ON OR AFTER 03/28/14* * Quantity: 60 Refills: 0 Donnie Blanco M.D.* Started 13-Jun-2013 ActiveZetia 10 MG Oral Tablet take one tablet by mouth every day * Quantity: 30 Refills: 0 Angelo Shanks M.D.* Started 30-Mar-2010 ActiveProAir HFA 108 (90 Base) MCG/ACT Inhalation Aerosol Solution TAKE 2 PUFFS BY MOUTH EVERY 4 HOURS NEEDED * Quantity: 8.5 Refills: 11 Angelo Shanks M.D.* Started 04-May-2009 ActiveCetirizine HCl - 10 MG Oral Tablet TAKE 1 TABLET BY MOUTH DAILY * Quantity: 30 Refills: 5 Angelo Shanks M.D.* Started 06-Apr-2009 ActiveAspirin 81 MG Oral Tablet TAKE 1 TABLET DAILY. * Refills: 0 Angelo Randhawa M.D.* Started 04-Jan-2008 ActiveSingulair 10 MG Oral Tablet take one tablet by mouth every day * Quantity: 30 Refills: 2 Angelo Shanks M.D.* Started 06-Apr-2009 ActiveSulfamethoxazole-TMP DS 800-160 MG Oral Tablet TAKE 1 TABLET BY MOUTH TWICE DAILY FOR 7 DAYS * Quantity: 14 Refills: 0 Angelo Shanks M.D.* Started 09-Sep-2013 ActiveDexilant 60 MG Oral Capsule Delayed Release TAKE 1 CAPSULE Daily * Quantity: 30 Refills: 11 Italia Bang M.D.* Started 01-Jan-2014 ActiveSucralfate 1 GM/10ML Oral Suspension 1 gm liquid before meals and at bedtime for 3 days * Quantity: 120 Refills: 0 Italia Bang M.D.* Started 01-Jan-2014 ActiveLyrica 150 MG Oral Capsule TAKE 1 CAPSULE BY MOUTH THREE TIMES DAILY * Quantity: 90 Refills: 1 Angelo Shanks M.D.* Started 17-Sep-2013 ActiveAtenolol 50 MG Oral Tablet TAKE 1 TABLET BY MOUTH TWICE DAILY * Quantity: 30 Refills: 5 Angelo Shanks M.D.* Started 23-Sep-2013 ActivePotassium Chloride Misti ER 10 MEQ Oral Tablet Extended Release take 4 tablets by mouth twice daily * Quantity: 240 Refills: 5 Angelo Shanks M.D.* Started 20-Sep-2010 ActivePredniSONE 20 MG Oral Tablet TAKE 3 [...] Intramuscular Suspension Administered on:14-Mar-2009 Influenza Lot #: [id number] Administered on:18-Feb-2010 Influenza Administered on:11-Feb-2011 Influenza Administered [...]
--- OUTSIDE RECORDS SUMMARY | 2017-10-27 08:19 | XMS REPORT ---
Author Author DELMI BYRNES Organization [facility] Address [address] [place] [address] Care Team Providers Care Fermenter Champagne Name Role Phone DELMI BYRNES Unavailable PROBLEMS Type Condition ICD9-CM Code RSD81-PI Code Onset Dates Condition Status SNOMED Code Problem Anxiety F41.9 Active 35441981 Problem Essential hypertension I10 Active 31479383 Problem Chronic kidney disease, stage 2 (mild) N18.2 Active 045427332 Problem Intractable cyclical vomiting with nausea G43.A1 Active 38594773 Problem Severe episode of recurrent major depressive disorder, without psychotic features F33.2 Active 04021771 Problem Chronic depression F32.9 Active 464150025 Problem Prediabetes R73.03 Active 329567581 Problem Chronic bronchitis, unspecified chronic bronchitis type J42 Active 03551228 Problem Lumbar radiculopathy M54.16 Active 105069437 Problem Barretts esophagus with dysplasia K22.719 Active 9057702171328933 Problem Hyperlipidemia, unspecified hyperlipidemia type E78.5 Active 56422686 Problem Fibromyalgia M79.7 Active 583726174 Problem Coronary artery disease involving gulkana coronary artery, angina presence unspecified, unspecified whether gulkana or transplanted heart I25.10 Active 2445542730427 Problem Arthritis M19.90 Active 7901981 ALLERGIES No Information ENCOUNTERS Encounter Location Date Diagnosis [facility] [id number] [address] Aug, [facility] [address] [place] [address]88[address]36 Jul, Intractable cyclical vomiting with nausea G43.A1 and Anxiety F41.9 [facility] [id number] [address] Jul, [facility] [id number] [place] [address] 13351- 4734 Jul, Anxiety F41.[address] [facility] [address] [address] Jul, Severe episode of recurrent major depressive disorder, without psychotic features F33.2 and Neurocognitive disorder R41.9 [address] [address] [address]- [address] 27 Jun, 2017 [address] [address] [address]- [address] Jun, Lumbar radiculopathy M54.16 ; Essential hypertension I10 ; Anxiety F41.9 and Chronic bronchitis, unspecified chronic bronchitis type J42 [place] [address] [address]40- 7038 15 Jun, 2017 Anxiety F41.9 [address] [address] [address]36- [address]81 14 Jun, 2017 [facility] [address] [address]- [address] Jun, Arthritis M19.90 [address] [address] [address]- [address] Jun, [place] [id number] [place] [address] 00796- 7879 Jun, [place] [address] [address]- [address] May, [facility] [id number] [place] [address] 91636- 0824 May, [place] [address] [address]792- [address] May, HPV (human papilloma virus) infection B97.7 [facility] [facility] [id number] [place] [address] 11689- 7961 May, Anxiety F41.9 and Arthritis M19.90 [place] [address] [address] 18 Apr, 2017 [facility] [id number] [place] [address] 11020- 3917 15 Apr, 2017 [facility] [id number] [place] [address] 44689- 8918 13 Apr, 2017 Colon cancer screening Z12.11 [facility] [id number] [place] [address] 24335- 4513 11 Apr, 2017 [facility] [id number] [place] [address] 39118- 2818 Apr, [place] [id number] [place] [address] 04886- 0132 07 Apr, 2017 Arthritis M19.90 and Anxiety F41.9 [place] [id number] [place] [address] 06078- 0383 30 Mar, 2017 Well woman exam Z01.419 and Colon cancer screening Z12.11 [facility] [id number] [place] [address] 34365- 6601 14 Mar, 2017 [address] [id number] [place] [address] 09666- 0633 13 Mar, 2017 Anxiety F41.9 and Arthritis M19.90 [place] [id number] [place] [address] 91244- 9406 19 Feb, 2017 Encounter for immunization Z23 ; Essential hypertension I10 ; Lumbar radiculopathy M54.16 ; Chronic depression F32.9 ; Routine adult health maintenance Z00.00 and Chronic bronchitis, unspecified chronic bronchitis type J42 [place] [id number] [place] [address] 93606- 8427 16 Feb, 2017 Arthritis M19.90 and Anxiety F41.9 [place] [id number] [place] [address] 96910- 6556 18 Jan, 2017 Arthritis M19.90 and Anxiety F41.9 [place] [id number] [place] [address] 51075- 0931 Dec, Arthritis M19.90 and Anxiety F41.9 [address] [id number] [place] [address] 23934- 2539 Dec, Lumbar radiculopathy M54.16 and Chronic depression F32.9 [place] [address] 59665- 9981 Dec, [place] [address] 08996- 0435 Dec, Foot drop, right foot M21.371 ; Coronary artery disease involving gulkana coronary artery, angina presence unspecified, unspecified whether gulkana or transplanted heart I25.10 and Depressive disorder, not elsewhere classified F32.9 [place] [id number] [place] [address] 61897- 8352 Nov, Arthritis M19.90 [place] [id number] [place] [address] 70961- 3197 Nov, [place] [id number] [place] [address] 34633- 7780 Oct, [address] [id number] [place] [address] 75403- 1634 Oct, Essential hypertension I10 ; Anxiety F41.9 ; Arthritis M19.90 and Fibromyalgia M79.7 [place] [id number] [place] [address] 49258- 2090 September, Anxiety F41.9 [place] [id number] [place] [address] 16835- 6111 September, Arthritis M19.90 [place] [id number] [place] [address] 76520- 9049 Aug, Dental examination Z01.20 [place] [id number] [place] [address] 90681- 5317 Aug, Anxiety F41.9 [facility] [address] [address] Aug, [place] [id number] [place] [address] 84609- 2498 18 Aug, [address] [facility] [address] [place] [address] 80226- 8179 13 Aug, 2016 Essential hypertension I10 and Arthritis M19.90 [place] [id number] [place] [address] 20184- 0121 10 Aug, 2016 Depressive disorder, not elsewhere classified F32.9 [place] [id number] [place] [address] 85080- 7603 29 Jul, 2016 Local infection of the skin and subcutaneous tissue, unspecified L08.9 and Abrasion, unspecified lesser toe(s), sequela S90.416S [place] [id number] [place] [address] 40930- 3085 Jul, Prediabetes R73.03 and Essential hypertension I10 [place] [address] [place] [address] 33232- 0816 Jul, Abnormal glucose level R73.09 [facility] [id number] [id number] Jul, [place] [address] [place] [address] 19501- 8316 17 Jul, 2016 Abnormal glucose level R73.09 [place] [address] [place] [address] 66064- 1535 16 Jul, 2016 Fibromyalgia M79.7 ; Arthritis M19.90 ; Chronic kidney disease, stage 2 (mild) N18.2 and Depressive disorder, not elsewhere classified F32.9 [place] [address] [place] [address] 84752- 1561 14 Jul, 2016 [address] [address] [place] [address] 39228- 7749 Jul, [facility] [id number] [place] [address] 01302- 9280 Jul, [facility] [address] 07306- 6504 Jul, Arthritis M19.90 ; Depressive disorder, not elsewhere classified F32.9 ; Fibromyalgia M79.7 and Constipation, unspecified constipation type K59.00 [place] [address] 17525- 8142 15 Jun, 2016 Anxiety F41.9 [place] [address] 89663- 4713 14 Jun, 2016 Anxiety F41.9 and Fibromyalgia M79.7 [place] [id number] [place] [address] 99591- 6892 11 Jun, 2016 [address] [address] 87723- 0870 Jun, Arthritis M19.90 ; Depressive disorder, not elsewhere classified F32.9 ; Barretts esophagus with dysplasia K22.719 ; Edema, unspecified type R60.9 and Fibromyalgia M79.7 [place] [id number] [place] [address] 43746- 2894 Jun, [place] [id number] [place] [address] 02085- 9137 May, [place] [id number] [place] [address] 72058- 6033 May, Dyspnea on exertion R06.09 ; Coronary artery disease involving gulkana coronary artery, angina presence unspecified, unspecified whether gulkana or transplanted heart I25.10 and Arthritis M19.90 [place] [id number] [place] [address] 79876- 1101 May, [place] [id number] [place] [address] 94065- 4923 Apr, Arthritis M19.90 [place] [address] [address]- 1097 Apr, Arthritis M19.90 and Acute cystitis without hematuria N30.00 [facility] [place] [address] [facility] [id number] [place] [id number] Apr, [facility] [address] [facility] [id number] [address]- [address] Apr, [address] M79.7 [facility] [id number] [address]- 3713 Apr, Arthritis M19.[address] [facility] [address] [address]- [address] Mar, [facility] [address] [address]- 1834 Mar, Acute gout involving toe of right foot, unspecified cause M10.9 [facility] [address] [address]160 Mar, [facility] [id number] [address] 4280 Feb, [facility] [address] [address]- [address] Feb, [facility] [id number] [address]- 0529 Feb, Arthritis M19.90 [facility] [id number] [address]- 1567 23 Jan, 2016 [facility] [id number] [address]- 1268 19 Jan, 2016 [facility] [id number] [address]- 5980 16 Jan, 2016 [facility] [id number] [address]- 3609 Jan, [facility] [address] [place] [address] 84713- 6587 Jan, Coronary artery disease involving gulkana coronary artery, angina presence unspecified, unspecified whether gulkana or transplanted heart I25.10 ; Arthritis M19.90 and Edema, unspecified type R60.9 [place] [id number] [place] [address] 28177- 5879 Jan, [place] [id number] [place] [address] 02417- 4903 Jan, [place] [id number] [place] [address] 68292- 4399 Jan, Anxiety F41.9 and Depressive disorder, not elsewhere classified F32.9 [place] [id number] [place] [address] 30142- 4400 Dec, Dementia without behavioral disturbance, unspecified dementia type F03.90 and Reactive depression F32.9 [place] [id number] [place] [address] 43738- 4727 Dec, [address] [id number] [place] [address] 14608- 7377 Dec, [place] [id number] [place] [address] 19376- 4672 Nov, Depressive disorder, not elsewhere classified F32.9 and Anxiety F41.9 [place] [id number] [place] [address] 33339- 5308 Nov, Coronary artery disease involving gulkana coronary artery, angina presence unspecified, unspecified whether gulkana or transplanted heart I25.10 ; Fibromyalgia M79.7 ; Arthritis M19.90 ; Anxiety F41.9 ; Hyperlipidemia , unspecified hyperlipidemia type E78.5 and Barretts esophagus with dysplasia K22.719 [place] [address] [place] [address] 54757- 9254 Nov, IMMUNIZATIONS No Known Immunizations SOCIAL HISTORY Never Assessed REASON FOR VISIT Oxycodone PLAN OF CARE VITAL SIGNS MEDICATIONS Medication Instructions Dosage Frequency Start Date End Date Duration Status Oxycodone HCl 5 mg Orally every 6 hrs, prn pain 1 tablet Nov, 28 days Active RESULTS No Results PROCEDURES [...]
--- OUTSIDE RECORDS SUMMARY | 2017-10-27 08:22 | XMS REPORT ---
Author Author NATALIESHANIQUA CYR [facility] Address [address] [place] [address] Care Team Providers Care Job Interviewer Name Role Phone SHANIQUA ESTRADA Unavailable PROBLEMS Type Condition ICD9-CM Code UKB99-GI Code Onset Dates Condition Status SNOMED Code Problem Essential hypertension I10 Active 27432327 Problem Chronic depression F32.9 Active 862041722 Problem Lumbar radiculopathy M54.16 Active 083781108 Problem Onychomycosis B35.1 Active 637490300 Problem Stage 3 chronic kidney disease N18.3 Active 286335303 Problem Severe episode of recurrent major depressive disorder, without psychotic features F33.2 Active 18928579 Problem Chronic bronchitis, unspecified chronic bronchitis type J42 Active 65149916 Problem Pseudobulbar affect F48.2 Active 67459168 Problem Intractable cyclical vomiting with nausea G43.A1 Active 14967987 Problem Coronary artery disease involving little traverse coronary artery, angina presence unspecified, unspecified whether little traverse or transplanted heart I25.10 Active 2315995882901 Problem Hyperlipidemia, unspecified hyperlipidemia type E78.5 Active 23921850 Problem Fibromyalgia M79.7 Active 631701951 Problem Anxiety F41.9 Active 31447366 Problem Barretts esophagus with dysplasia K22.719 Active [id number] Problem Chronic kidney disease, stage 2 (mild) N18.2 Active 002635079 Problem Arthritis M19.90 Active 8409692 Problem Prediabetes R73.03 Active [id number] ALLERGIES No Information ENCOUNTERS Encounter Location Date Diagnosis [facility] [address] [facility] [id number] [address] Oct, [facility] [address] [facility] [id number] [address] Oct, Essential hypertension I10 ; Barretts esophagus with dysplasia K22.719 ; Pseudobulbar affect F48.2 ; Arthritis M19.90 ; Onychomycosis B35.1 and Stage 3 chronic kidney disease N18.3 [facility] [id number] [place] [address]907[address] September, Arthritis M19.90 [facility] [id number] [place] [address] 04788- 0662 September, [facility] [address] [address] Aug, Essential hypertension I10 ; Lumbar radiculopathy M54.16 ; Anxiety F41.9 ; Intractable cyclical vomiting with nausea G43.A1 and Pseudobulbar affect F48.2 [facility] [address] [address] Aug, Arthritis M19.90 [facility] [address] [address]- [address] Jul, Intractable cyclical vomiting with nausea G43.A1 and Anxiety F41.9 [facility] [id number] [place] [address] 65166- 9864 Jul, [facility] [address] [address]- [address] Jul, Anxiety F41.9 and Arthritis M19.90 [facility] [id number] [place] [address] 08765- 7512 Jul, Severe episode of recurrent major depressive disorder, without psychotic features F33.2 and Neurocognitive disorder R41.9 [facility] [id number] [place] [address] 35224- 4857 Jun, [facility] [address] [address] Jun, Lumbar radiculopathy M54.16 ; Essential hypertension I10 ; Anxiety F41.9 and Chronic bronchitis, unspecified chronic bronchitis type J42 [facility] [address] [address]- [address] 15 Jun, 2017 Anxiety F41.9 [facility] [id number] [place] [address] 17971- 2596 14 Jun, 2017 [facility] [id number] [place] [address] 73565- 6336 12 Jun, 2017 Arthritis M19.90 [facility] [id number] [place] [address] 71222- 8456 05 Jun, 2017 [facility] [id number] [place] [address] 70463- 9506 05 Jun, 2017 [facility] [id number] [place] [address] 27375- 6141 May, [facility] [id number] [place] [address] 01192- 3396 May, [facility] [id number] [place] [address] 23783- 7207 May, HPV (human papilloma virus) infection B97.7 [facility] [id number] [place] [address] 80939- 9759 May, Anxiety F41.9 and Arthritis M19.90 [facility] [id number] [place] [address] 83939- 7536 Apr, [facility] [id number] [place] [address] 62854- 0576 Apr, [facility] [id number] [place] [address] 93889- 0969 Apr, Colon cancer screening Z12.11 [facility] [id number] [place] [address] 42844- 8306 Apr, [facility] [id number] [place] [address] 08042- 5729 Apr, [facility] [id number] [place] [address] 26747- 8611 Apr, Arthritis M19.90 and Anxiety F41.9 [facility] [id number] [place] [address] 42835- 7734 30 Mar, 2017 Well woman exam Z01.419 and Colon cancer screening Z12.11 [facility] [id number] [place] [address] 77758- 6739 14 Mar, 2017 [facility] [address] [address]- 2351 13 Mar, 2017 Anxiety F41.9 and Arthritis M19.90 [facility] [address] 5[address]88- 1091 19 Feb, 2017 Encounter for immunization Z23 ; Essential hypertension I10 ; Lumbar radiculopathy M54.16 ; Chronic depression F32.9 ; Routine adult health maintenance Z00.00 and Chronic bronchitis, unspecified chronic bronchitis type J42 [place] [id number] [place] [address] 50235- 5408 Feb, Arthritis M19.90 and Anxiety F41.9 [facility] [id number] [place] [address] 47436- 3024 Jan, Arthritis M19.90 and Anxiety F41.9 [facility] [id number] [place] [address] 73884- 4374 Dec, Arthritis M19.90 and Anxiety F41.9 [facility] [id number] [place] [address] 57700- 1137 Dec, Lumbar radiculopathy M54.16 and Chronic depression F32.9 [facility] [id number] [place] [address] 09818- 2520 Dec, [facility] [id number] [place] [address] 29429- 1714 Dec, Foot drop, right foot M21.371 ; Coronary artery disease involving little traverse coronary artery, angina presence unspecified, unspecified whether little traverse or transplanted heart I25.10 and Depressive disorder, not elsewhere classified F32.9 [facility] [id number] [place] [address] 53698- 0630 Nov, Arthritis M19.90 [facility] [id number] [place] [address] 69248- 6213 Nov, [facility] [id number] [place] [address] 48917- 7429 Oct, [facility] [address] 23108- 3283 Oct, Essential hypertension I10 ; Anxiety F41.9 ; Arthritis M19.90 and Fibromyalgia M79.7 [facility] [address] 00737- 5410 September, Anxiety F41.9 [facility] [id number] [place] [address] 48265- 6835 September, Arthritis M19.90 [facility] [id number] [place] [address] 91929- 8567 Aug, Dental examination Z01.20 [facility] [address] 15982- 6314 Aug, Anxiety F41.9 [facility] [id number] [place] [address] 82532- 8289 Aug, [facility] [id number] [place] [address] 97085- 7108 Aug, Anxiety F41.9 [facility] [id number] [place] [address] 92236- 3281 Aug, Essential hypertension I10 and Arthritis M19.90 [facility] [id number] [place] [address] 24115- 0590 Aug, Depressive disorder, not elsewhere classified F32.9 [facility] [id number] [place] [address] 96374- 2945 Jul, Local infection of the skin and subcutaneous tissue, unspecified L08.9 and Abrasion, unspecified lesser toe(s), sequela S90.416S [facility] [id number] [place] [address] 81255- 2607 Jul, Prediabetes R73.03 and Essential hypertension I10 [facility] [id number] [place] [address] 80514- 5271 Jul, Abnormal glucose level R73.09 [facility] [id number] [place] [address] [id number] Jul, [facility] [id number] [place] [address] 28395- 7680 17 Jul, 2016 Abnormal glucose level R73.09 [facility] [id number] [place] [address] 17807- 2065 16 Jul, 2016 Fibromyalgia M79.7 ; Arthritis M19.90 ; Chronic kidney disease, stage 2 (mild) N18.2 and Depressive disorder, not elsewhere classified F32.9 [facility] [id number] [place] [address] 96234- 3641 Jul, [facility] [id number] [place] [address] 54331- 1555 Jul, [facility] [id number] [place] [address] 63926- 8391 Jul, [facility] [id number] [place] [address] 71021- 2323 Jul, Arthritis M19.90 ; Depressive disorder, not elsewhere classified F32.9 ; Fibromyalgia M79.7 and Constipation, unspecified constipation type K59.00 [facility] [id number] [place] [address] 73469- 6374 15 Jun, 2016 Anxiety F41.9 [facility] [id number] [place] [address] 06123- 2556 14 Jun, 2016 Anxiety F41.9 and Fibromyalgia M79.7 [facility] [address] [place] [address]- 9046 11 Jun, 2016 [facility] [address] [address]- [address] 10 Jun, 2016 Arthritis M19.90 ; Depressive disorder, not elsewhere classified F32.9 ; Barretts esophagus with dysplasia K22.719 ; Edema, unspecified type R60.9 and Fibromyalgia M79.7 [facility] [id number] [place] [address] 02653- 1851 06 Jun, 2016 [facility] [id number] [place] [address] 30530- 3424 May, [facility] [id number] [place] [address] 73509- 3090 May, Dyspnea on exertion R06.09 ; Coronary artery disease involving little traverse coronary artery, angina presence unspecified, unspecified whether little traverse or transplanted heart I25.10 and Arthritis M19.90 [facility] [address] [address]- 9601 May, [facility] [address] [place] [address] 74812- 8866 Apr, Arthritis M19.90 [facility] [address] [address]- 1093 Apr, Arthritis M19.90 and Acute cystitis without hematuria N30.00 [facility] [place] [address] [facility] [id number] [place] [id number] Apr, [facility] [id number] [address]- 4826 Apr, Fibromyalgia M79.7 [facility] [address] [address]- 8660 Apr, Arthritis M19.90 and Onychomycosis B35.1 [facility] [address] [address]- 6216 Mar, [facility] [id number] [address]- 4493 17 Mar, 2016 Acute gout involving toe of right foot, unspecified cause M10.9 [facility] [id number] [place] [address] 15960- 0490 Mar, [facility] [address] [place] [address] 37414- 2545 Feb, [facility] [id number] [place] [address] 29564- 8944 Feb, [facility] [id number] [place] [address] 28648- 5049 Feb, Arthritis M19.90 [facility] [id number] [place] [address] 41854- 4040 23 Jan, 2016 [facility] [id number] [place] [address] 16927- 9651 19 Jan, 2016 [facility] [address] [place] [address] 01772- 6456 16 Jan, 2016 [facility] [id number] [place] [address] 77574- 3508 16 Jan, 2016 [facility] [id number] [place] [address] 47447- 2139 12 Jan, 2016 Coronary artery disease involving little traverse coronary artery, angina presence unspecified, unspecified whether little traverse or transplanted heart I25.10 ; Arthritis M19.90 and Edema, unspecified type R60.9 [facility] [address] [address]- 1617 07 Jan, 2016 [facility] [id number] [place] [address] 59074- 4999 06 Jan, 2016 [facility] [address] [place] [address] 13505- 1413 02 Jan, 2016 Anxiety F41.9 and Depressive disorder, not elsewhere classified F32.9 [facility] [id number] [place] [address] 67224- 7997 Dec, Dementia without behavioral disturbance, unspecified dementia type F03.90 and Reactive depression F32.9 [facility] [address] [address]- 1739 Dec, [facility] [address] [address]- 0723 Dec, [facility] [facility] [address] [address]- 1073 Nov, Depressive disorder, not elsewhere classified F32.9 and Anxiety F41.9 [facility] [id number] [address]- 0383 Nov, Coronary artery disease involving little traverse coronary artery, angina presence unspecified, unspecified whether little traverse or transplanted heart I25.10 ; Fibromyalgia M79.7 ; Arthritis M19.90 ; Anxiety F41.9 ; Hyperlipidemia , unspecified hyperlipidemia type E78.5 and Barretts esophagus with dysplasia K22.719 [facility] [id number] [address]- 7172 Nov, IMMUNIZATIONS No Known Immunizations SOCIAL HISTORY Never Assessed REASON FOR VISIT Referral PLAN OF CARE VITAL SIGNS MEDICATIONS Unknown [...]
--- OUTSIDE RECORDS SUMMARY | 2017-10-27 08:23 | XMS REPORT ---
Author Author DELMI BYRNES Organization [facility] Address [address] [place] [address] Care Team Providers Care Recyclable Materials Sorter Name Role Phone DELMI BYRNES Unavailable PROBLEMS Type Condition ICD9-CM Code SXP04-DB Code Onset Dates Condition Status SNOMED Code Problem Essential hypertension I10 Active 24077805 Problem Chronic depression F32.9 Active 685559661 Problem Lumbar radiculopathy M54.16 Active 872181342 Problem Onychomycosis B35.1 Active 847860112 Problem Stage 3 chronic kidney disease N18.3 Active 899384362 Problem Severe episode of recurrent major depressive disorder, without psychotic features F33.2 Active 64900197 Problem Chronic bronchitis, unspecified chronic bronchitis type J42 Active 26347091 Problem Pseudobulbar affect F48.2 Active 50868260 Problem Intractable cyclical vomiting with nausea G43.A1 Active 94180641 Problem Coronary artery disease involving osage coronary artery, angina presence unspecified, unspecified whether osage or transplanted heart I25.10 Active 1684031450169 Problem Hyperlipidemia, unspecified hyperlipidemia type E78.5 Active 80182941 Problem Fibromyalgia M79.7 Active 021450233 Problem Anxiety F41.9 Active 79665891 Problem Barretts esophagus with dysplasia K22.719 Active 1093382797937983 Problem Chronic kidney disease, stage 2 (mild) N18.2 Active 349600956 Problem Arthritis M19.90 Active 8629608 Problem Prediabetes R73.03 Active [id number] ALLERGIES No Information ENCOUNTERS Encounter Location Date Diagnosis [facility] [address] [facility] [id number] [address] Oct, [facility] [id number] [address] Oct, Essential hypertension I10 ; Barretts esophagus with dysplasia K22.719 ; Pseudobulbar affect F48.2 ; Arthritis M19.90 ; Onychomycosis B35.1 and Stage 3 chronic kidney disease N18.3 [place] [id number] [place] [address] 86975- 5641 September, Arthritis M19.90 [place] [id number] [place] [address] 59397- 6858 September, [place] [id number] [place] [address] 04570- 2690 Aug, Essential hypertension I10 ; Lumbar radiculopathy M54.16 ; Anxiety F41.9 ; Intractable cyclical vomiting with nausea G43.A1 and Pseudobulbar affect F48.2 [place] [id number] [place] [address] 26116- 2758 Aug, Arthritis M19.90 [place] [id number] [place] [address] 02525- 5095 Jul, Intractable cyclical vomiting with nausea G43.A1 and Anxiety F41.9 [place] [id number] [place] [address] 73012- 2012 Jul, [place] [id number] [place] [address] 59911- 2486 Jul, Anxiety F41.9 and Arthritis M19.90 [place] [id number] [place] [address] 66828- 0798 Jul, Severe episode of recurrent major depressive disorder, without psychotic features F33.2 and Neurocognitive disorder R41.9 [place] [id number] [place] [address] 29074- 8327 Jun, [place] [id number] [place] [address] 53534- 2086 Jun, Lumbar radiculopathy M54.16 ; Essential hypertension I10 ; Anxiety F41.9 and Chronic bronchitis, unspecified chronic bronchitis type J42 [place] [id number] [place] [address] 99939- 3329 15 Jun, 2017 Anxiety F41.9 [facility] [address] [address] 2546 14 Jun, 2017 [facility] [id number] [place] [address] 33121 2546 12 Jun, 2017 Arthritis M19.90 [facility] [id number] [place] [address] 72372 2546 05 Jun, 2017 [facility] [id number] [place] [address] 85739 2546 05 Jun, 2017 [facility] [id number] [place] [address] 27632- 9646 May, [facility] [id number] [place] [address] 47350- 2706 May, [facility] [id number] [place] [address] 34898- 9273 May, HPV (human papilloma virus) infection B97.7 [facility] [id number] [place] [address] 32569- 0626 May, Anxiety F41.9 and Arthritis M19.90 [facility] [address], [place] [address] 7[address] Apr, [facility] [id number] [place] [address] 69067- 2486 Apr, [facility] [address], [place] [address] 2546 13 Apr, 2017 Colon cancer screening Z12.11 [facility] [id number] [place] [address] 53970- 9196 Apr, [facility] [address], [place] [address] 2546 Apr, [facility] [id number] [place] [address] 15568- 9756 07 Apr, 2017 Arthritis M19.90 and Anxiety F41.9 [place] [id number] [place] [address] 88179- 6331 30 Mar, 2017 Well woman exam Z01.419 and Colon cancer screening Z12.11 [place] [id number] [place] [address] 45027- 5249 14 Mar, 2017 [place] [address] 71064- 6868 13 Mar, 2017 Anxiety F41.9 and Arthritis M19.90 [place] [id number] [place] [address] 78637- 8060 19 Feb, 2017 Encounter for immunization Z23 ; Essential hypertension I10 ; Lumbar radiculopathy M54.16 ; Chronic depression F32.9 ; Routine adult health maintenance Z00.00 and Chronic bronchitis, unspecified chronic bronchitis type J42 [place] [id number] [place] [address] 81331- 3933 Feb, Arthritis M19.90 and Anxiety F41.9 [place] [id number] [place] [address] 08080- 4314 Jan, Arthritis M19.90 and Anxiety F41.9 [place] [id number] [place] [address] 23791- 0404 Dec, Arthritis M19.90 and Anxiety F41.9 [place] [id number] [place] [address] 03235- 8684 Dec, Lumbar radiculopathy M54.16 and Chronic depression F32.9 [place] [id number] [place] [address] 42855- 5465 Dec, [place] [address] 28799- 5973 Dec, Foot drop, right foot M21.371 ; Coronary artery disease involving osage coronary artery, angina presence unspecified, unspecified whether osage or transplanted heart I25.10 and Depressive disorder, not elsewhere classified F32.9 [facility] [id number] [place] [address] 42044- 2169 Nov, Arthritis M19.90 [facility] [id number] [place] [address] 31550- 1876 Nov, [facility] [id number] [place] [address] 44235- 9749 Oct, [facility] [address] 07394- 3715 Oct, Essential hypertension I10 ; Anxiety F41.9 ; Arthritis M19.90 and Fibromyalgia M79.7 [facility] [address] 68651- 7866 September, Anxiety F41.9 [facility] [id number] [place] [address] 22671- 9135 September, Arthritis M19.90 [facility] [id number] [place] [address] 62160- 4623 Aug, Dental examination Z01.20 [facility] [address] 58425- 7242 Aug, Anxiety F41.9 [facility] [id number] [place] [address] 79582- 7954 Aug, [facility] [id number] [place] [address] 35339- 2499 Aug, Anxiety F41.9 [facility] [id number] [place] [address] 72893- 5465 Aug, Essential hypertension I10 and Arthritis M19.90 [facility] [id number] [place] [address] 08683- 2870 Aug, Depressive disorder, not elsewhere classified F32.9 [facility] [id number] [place] [address] 61813- 5815 Jul, Local infection of the skin and subcutaneous tissue, unspecified L08.9 and Abrasion, unspecified lesser toe(s), sequela S90.416S [facility] [address] [place] [address] 33576- 6493 Jul, Prediabetes R73.03 and Essential hypertension I10 [facility] [id number] [place] [address] 93829- 7013 Jul, Abnormal glucose level R73.09 [place] [id number] [place] [address] [id number] Jul, [facility] [id number] [place] [address] 19779- 6763 Jul, Abnormal glucose level R73.09 [place] [id number] [place] [address] 74548- 1905 16 Jul, 2016 Fibromyalgia M79.7 ; Arthritis M19.90 ; Chronic kidney disease, stage 2 (mild) N18.2 and Depressive disorder, not elsewhere classified F32.9 [place] [id number] [place] [address] 51469- 5025 Jul, [place] [address] 75518- 1524 Jul, [place] [id number] [place] [address] 62277- 9092 Jul, [place] [id number] [place] [address] 10551- 9998 Jul, Arthritis M19.90 ; Depressive disorder, not elsewhere classified F32.9 ; Fibromyalgia M79.7 and Constipation, unspecified constipation type K59.00 [place] [id number] [place] [address] 31667- 8870 15 Jun, 2016 Anxiety F41.9 [place] [id number] [place] [address] 96537- 8072 14 Jun, 2016 Anxiety F41.9 and Fibromyalgia M79.7 [place] [id number] [place] [address] 42503- 8670 11 Jun, 2016 [facility] [address], [place] [address]- 2597 10 Jun, 2016 Arthritis M19.90 ; Depressive disorder, not elsewhere classified F32.9 ; Barretts esophagus with dysplasia K22.719 ; Edema, unspecified type R60.9 and Fibromyalgia M79.7 [facility] [address], [place] [address]- 3689 06 Jun, 2016 [facility] [address], [place] [address]- 4371 May, [place] [id number] [place] [address] 24282- 7428 May, Dyspnea on exertion R06.09 ; Coronary artery disease involving osage coronary artery, angina presence unspecified, unspecified whether osage or transplanted heart I25.10 and Arthritis M19.90 [place] [address], [place] [address]- 1796 May, [facility] [address], [place] [address]- 2053 Apr, Arthritis M19.90 [facility] [address], [place] [address]- 7457 Apr, Arthritis M19.90 and Acute cystitis without hematuria N30.00 [facility] [place] [address] [facility] [id number] [place] [id number] Apr, [facility] [address], [place] [address]- 2041 Apr, Fibromyalgia M79.7 [facility] [address], [place] [address]- 5247 Apr, Arthritis M19.90 and Onychomycosis B35.1 [facility] [address], [place] [address]- 2899 Mar, [place] [id number] [address]- 0737 Mar, Acute gout involving toe of right foot, unspecified cause M10.9 [facility] [id number] [place] [address] 55965- 6807 Mar, [facility] [id number] [place] [address] 95588- 3952 Feb, [facility] [id number] [place] [address] 57882- 2221 Feb, [facility] [id number] [place] [address] 50618- 6057 Feb, Arthritis M19.90 [facility] [id number] [place] [address] 07480- 2923 23 Jan, 2016 [facility] [id number] [place] [address] 56707- 1711 Jan, [facility] [id number] [place] [address] 60491- 9154 16 Jan, 2016 [facility] [id number] [place] [address] 65357- 0719 16 Jan, 2016 [facility] [id number] [place] [address] 20673- 5894 12 Jan, 2016 Coronary artery disease involving osage coronary artery, angina presence unspecified, unspecified whether osage or transplanted heart I25.10 ; Arthritis M19.90 and Edema, unspecified type R60.9 [facility] [address], [place] [address]- 9088 07 Jan, 2016 [facility] [id number] [place] [address] 90290- 9065 06 Jan, 2016 [facility] [id number] [place] [address] 32160- 7980 02 Jan, 2016 Anxiety F41.9 and Depressive disorder, not elsewhere classified F32.9 [facility] [id number] [place] [address] 00685- 6186 Dec, Dementia without behavioral disturbance, unspecified dementia type F03.90 and Reactive depression F32.9 [place] [address], [place] [address]- 6849 Dec, [place] [address], [place] [address]- 9014 Dec, [place] [id number] [place] [address] 98169- 2712 Nov, Depressive disorder, not elsewhere classified F32.9 and Anxiety F41.9 [place] [address], [place] [address]- 7357 Nov, Coronary artery disease involving osage coronary artery, angina presence unspecified, unspecified whether osage or transplanted heart I25.10 ; Fibromyalgia M79.7 ; Arthritis M19.90 ; Anxiety F41.9 ; Hyperlipidemia , unspecified hyperlipidemia type E78.5 and Barretts esophagus with dysplasia K22.719 [place] [address], [place] [address]- 5424 Nov, IMMUNIZATIONS No Known Immunizations SOCIAL HISTORY Never Assessed REASON FOR VISIT Alprazolam and Oxycodone 04/25 PLAN OF CARE VITAL SIGNS MEDICATIONS Medication Instructions Dosage Frequency Start Date End Date Duration Status Oxycodone HCl 5 mg Orally every 6 hrs, prn pain 1 tablet Apr, 28 days Active Alprazolam 1 MG Orally [...]
--- OUTSIDE RECORDS SUMMARY | 2017-10-27 08:23 | XMS REPORT ---
Author Author NATALIESHANIQUA CYR Organization [facility] Address [address] [place] [address] Care Team Providers Care Insurance Customer Service Specialist Name Role Phone SHANIQUA ESTRADA Unavailable PROBLEMS Type Condition ICD9-CM Code [id number] Code Onset Dates Condition Status SNOMED Code Problem Essential hypertension I10 Active 41140471 Problem Chronic depression F32.9 Active 636528249 Problem Lumbar radiculopathy M54.16 Active 009921931 Problem Onychomycosis B35.1 Active 672307195 Problem Stage 3 chronic kidney disease N18.3 Active 771872432 Problem Severe episode of recurrent major depressive disorder, without psychotic features F33.2 Active 53696094 Problem Chronic bronchitis, unspecified chronic bronchitis type J42 Active 01162801 Problem Pseudobulbar affect F48.2 Active 82382235 Problem Intractable cyclical vomiting with nausea G43.A1 Active 43082299 Problem Coronary artery disease involving samish coronary artery, angina presence unspecified, unspecified whether samish or transplanted heart I25.10 Active 6491238943961 Problem Hyperlipidemia, unspecified hyperlipidemia type E78.5 Active 48066085 Problem Fibromyalgia M79.7 Active 546448582 Problem Anxiety F41.9 Active 30521317 Problem Barretts esophagus with dysplasia K22.719 Active 8202092427447592 Problem Chronic kidney disease, stage 2 (mild) N18.2 Active 378843394 Problem Arthritis M19.90 Active 7821255 Problem Prediabetes R73.03 Active 636264872 ALLERGIES Substance Reaction Event Type Date Status Eggs Unknown Non Drug Allergy Mar, Active Milk Unknown Non Drug Allergy Mar, Active ENCOUNTERS Encounter Location Date Diagnosis [facility] [address] [facility] [id number] [address] Oct, [facility] [address] [facility] [id number] [address] Oct, Essential hypertension I10 ; Barretts esophagus with dysplasia K22.719 ; Pseudobulbar affect F48.2 ; Arthritis M19.90 ; Onychomycosis B35.1 and Stage 3 chronic kidney disease N18.3 [facility] [address] [place] [id number] [place] [address]10- [address]551 September, Arthritis M19.90 [facility] [address] [address] September, [facility] [address] [address] Aug, Essential hypertension I10 ; Lumbar radiculopathy M54.16 ; Anxiety F41.9 ; Intractable cyclical vomiting with nausea G43.A1 and Pseudobulbar affect F48.2 [facility] [address] [place] [id number] [place] [address] 09180- 0058 Aug, Arthritis M19.90 [facility] [address] [address]- [address] Jul, Intractable cyclical vomiting with nausea G43.A1 and Anxiety F41.9 [facility] [address] [address]75- 9709 Jul, [facility] [address] [id number] [place] [address] 16947- 3046 Jul, Anxiety F41.9 and Arthritis M19.90 [facility] [address] [id number] [place] [address] 40498- 3780 Jul, Severe episode of recurrent major depressive disorder, without psychotic features F33.2 and Neurocognitive disorder R41.9 [facility] [address] [address]- 6[address] Jun, [facility] [address] [place] [id number] [place] [address] 40105- 0277 Jun, Lumbar radiculopathy M54.16 ; Essential hypertension I10 ; Anxiety F41.9 and Chronic bronchitis, unspecified chronic bronchitis type J42 [facility] [id number] [place] [address] 65023- 4308 15 Jun, 2017 Anxiety F41.9 [facility] [id number] [place] [address] 44151 2546 14 Jun, 2017 [facility] [id number] [place] [address] 75526- 0636 12 Jun, 2017 Arthritis M19.90 [facility] [id number] [place] [address] 40696- 5116 05 Jun, 2017 [facility] [id number] [place] [address] 08347- 0846 05 Jun, 2017 [facility] [id number] [place] [address] 89485- 5740 May, [facility] [id number] [place] [address] 21889- 0999 May, [facility] [id number] [place] [address] 85407- 9101 May, HPV (human papilloma virus) infection B97.7 [facility] [id number] [place] [address] 45789- 7480 02 May, 2017 Anxiety F41.9 and Arthritis M19.90 [facility] [id number] [place] [address] 36492- 3032 18 Apr, 2017 [facility] [id number] [place] [address] 63027- 2016 Apr, [facility] [id number] [place] [address] 10757- 7769 13 Apr, 2017 Colon cancer screening Z12.11 [facility] [id number] [place] [address] 46638- 5292 Apr, [facility] [id number] [place] [address] 58617- 6608 Apr, [facility] [id number] [place] [address] 94455- 6865 07 Apr, 2017 Arthritis M19.90 and Anxiety F41.9 [place] [id number] [place] [address] 75771- 4957 30 Mar, 2017 Well woman exam Z01.419 and Colon cancer screening Z12.[address] 36[address]- [address]98 14 Mar, 2017 [facility] [id number] [place] [address] 37260- 3467 13 Mar, 2017 Anxiety F41.9 and Arthritis M19.[address] 80308- 8971 19 Feb, 2017 Encounter for immunization Z23 ; Essential hypertension I10 ; Lumbar radiculopathy M54.16 ; Chronic depression F32.9 ; Routine adult health maintenance Z00.00 and Chronic bronchitis, unspecified chronic bronchitis type J42 [place] [id number] [place] [address] 52414- 4568 Feb, Arthritis M19.90 and Anxiety F41.9 [place] [id number] [place] [address] 47359- 5257 Jan, Arthritis M19.90 and Anxiety F41.9 [place] [id number] [place] [address] 86559- 8739 Dec, Arthritis M19.90 and Anxiety F41.9 [facility] [address] [place] [id number] [place] [address] 62992- 6099 Dec, Lumbar radiculopathy M54.16 and Chronic depression F32.9 [facility] [address] [place] [id number] [place] [address] 26999- 9827 Dec, [facility] [address] [id number] [place] [address] 07936- 1925 Dec, Foot drop, right foot M21.371 ; Coronary artery disease involving samish coronary artery, angina presence unspecified, unspecified whether samish or transplanted heart I25.10 and Depressive disorder, not elsewhere classified F32.9 [facility] [address] 93714- 5876 Nov, Arthritis M19.90 [facility] [id number] [place] [address] 77390- 5013 Nov, [facility] [address] [address] Oct, [facility] [address] [address]- 2020 Oct, Essential hypertension I10 ; Anxiety F41.9 ; Arthritis M19.90 and Fibromyalgia M79.7 [facility] [address] [address]- 1836 September, Anxiety F41.9 [facility] [address] 31485- 0825 September, Arthritis M19.90 [facility] [address] 48857- 0851 Aug, Dental examination Z01.20 [facility] [id number] [place] [address] 17857- 9889 Aug, Anxiety F41.9 [facility] [id number] [place] [address] 59305- 2267 Aug, [facility] [id number] [place] [address] 85998- 0082 Aug, Anxiety F41.9 [facility] [address] 29835- 1011 Aug, Essential hypertension I10 and Arthritis M19.90 [facility] [id number] [place] [address] 07817- 9617 Aug, Depressive disorder, not elsewhere classified F32.9 [facility] [address] 03231- 3202 Jul, Abrasion, unspecified lesser toe(s), sequela S90.416S and Local infection of the skin and subcutaneous tissue, unspecified L08.9 [facility] [address] [place] [address] 59533- 8732 Jul, Prediabetes R73.03 and Essential hypertension I10 [facility] [address] [id number] [place] [address] 32665- 0592 Jul, Abnormal glucose level R73.09 [facility] [id number] [place] [id number] Jul, [facility] [id number] [place] [address] 11101- 2095 Jul, Abnormal glucose level R73.09 [facility] [address] [place] [address] 46847- 3061 Jul, Fibromyalgia M79.7 ; Arthritis M19.90 ; Chronic kidney disease, stage 2 (mild) N18.2 and Depressive disorder, not elsewhere classified F32.9 [facility] [address] [place] [address] 76206- 1257 Jul, [facility] [address] [place] [address] 72766- 8132 Jul, [facility] [address] [place] [address] 02655- 1088 Jul, [facility] [id number] [place] [address] 46799- 2194 Jul, Arthritis M19.90 ; Depressive disorder, not elsewhere classified F32.9 ; Fibromyalgia M79.7 and Constipation, unspecified constipation type K59.00 [facility] [address] [place] [address] 30893- 0020 15 Jun, 2016 Anxiety F41.9 [facility] [address] [place] [address] 77257- 2940 14 Jun, 2016 Anxiety F41.9 and Fibromyalgia M79.7 [facility] [address] [address] 11 Jun, 2016 [facility] [address] [address]- 1303 10 Jun, 2016 Arthritis M19.90 ; Depressive disorder, not elsewhere classified F32.9 ; Barretts esophagus with dysplasia K22.719 ; Edema, unspecified type R60.9 and Fibromyalgia M79.7 [facility] [address] [address] 8425 Jun, [facility] [id number] [place] [address] 41440- 9981 May, [facility] [address] [place] [address] 69595- 6393 May, Dyspnea on exertion R06.09 ; Coronary artery disease involving samish coronary artery, angina presence unspecified, unspecified whether samish or transplanted heart I25.10 and Arthritis M19.90 [facility] [address] [address] May, [facility] [address] [address]- 2981 Apr, Arthritis M19.90 [facility] [address] [address]- 8251 Apr, Arthritis M19.90 and Acute cystitis without hematuria N30.00 [facility] [place] [address] [facility] [id number] [id number] Apr, [facility] [address] [address]- 2937 Apr, Fibromyalgia M79.7 [facility] [address] [address]- 7466 Apr, Arthritis M19.90 and Onychomycosis B35.1 [facility] [address] [address]- 75[address] Mar, [facility] [address] [address]- 2570 Mar, Acute gout involving toe of right foot, unspecified cause M10.9 [facility] [address] [address]- 4762 Mar, [facility] [id number] [place] [address] 13203- 7651 Feb, [facility] [address] [place] [address] 45647- 2867 Feb, [facility] [id number] [place] [address] 80686- 5199 Feb, Arthritis M19.90 [facility] [address] [place] [address] 65873- 6368 Jan, [facility] [id number] [place] [address] 31596- 8537 Jan, [facility] [address] [place] [address] 60375- 0111 16 Jan, 2016 [facility] [id number] [place] [address] 61174- 2061 16 Jan, 2016 [facility] [address] [address]- [address] Jan, Coronary artery disease involving samish coronary artery, angina presence unspecified, unspecified whether samish or transplanted heart I25.10 ; Arthritis M19.90 and Edema, unspecified type R60.9 [facility] [address] [address]- 1899 07 Jan, 2016 [facility] [id number] [place] [address] 40032- 5243 06 Jan, 2016 [facility] [address] [address]- [address] Jan, Anxiety F41.9 and Depressive disorder, not elsewhere classified F32.9 [facility] [address] [place] [id number] [address]- [address] Dec, Dementia without behavioral disturbance, unspecified dementia type F03.90 and Reactive depression F32.9 [facility] [address] [place] [address] [id number] [address]- 1528 Dec, [facility] [address] [address]- 1711 Dec, [facility] [address] [address]- 8804 Nov, Depressive disorder, not elsewhere classified F32.9 and Anxiety F41.9 [facility] [address] [address]- 14[address] Nov, Coronary artery disease involving samish coronary artery, angina presence unspecified, unspecified whether samish or transplanted heart I25.10 ; Fibromyalgia M79.7 ; Arthritis M19.90 ; Anxiety F41.9 ; Hyperlipidemia , unspecified hyperlipidemia type E78.5 and Barretts esophagus with dysplasia K22.719 [facility] [address] [address]- 7482 Nov, IMMUNIZATIONS No Known Immunizations SOCIAL HISTORY Never Assessed REASON FOR VISIT Well 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 -- 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 PLAN OF CARE Activity Details Follow Up 1 Year Reason: VITAL SIGNS Height 67 in 2017-04-13 Weight 216.8 lbs 2017-04-13 Temperature 97.8 degrees Fahrenheit 2017-04-13 Heart Rate 88 bpm 2017-04-13 Respiratory Rate 22 2017-04-13 BMI 33.95 kg/m2 2017-04-13 Blood pressure systolic 145 mmHg 2017-04-13 Blood pressure diastolic 76 mmHg 2017-04-13 MEDICATIONS Medication Instructions Dosage Frequency Start Date End Date Duration Status Folic Acid 1 MG Orally twice a day 1 tablet 12h Active Trazodone HCl 100 MG Orally Once a day 1 tablet at bedtime as needed 24h 17 Dec, 2016 30 day(s) Active Duloxetine HCl 30 MG Orally 3 times a day 1 capsule 8h 30 days Active Multivitamin Adult - Orally Once a day 1 tablet 24h 30 Active Adjust Bath/Shower Seat/Back - use in shower 10 Jun, 2016 Active Exelon 4.6 MG/24HR Transdermal Once a day 1 patch to skin 24h Active Diclofenac Sodium 75 Orally bid 1 tablet with food or milk 12h 30 Active Myrbetriq 50 mg Orally Once a day 1 tablet 24h Active Metoprolol Tartrate 50 mg Orally Twice a day 1 tablet with food 12h 30 Active Aspirin 325 MG Orally Once a day 1 tablet 24h 30 Active Premarin 30GM Vaginal Insert 1 Gram every night at bedtime twice a week Active Cholecalciferol 1000 UNIT Orally Once a day 2 capsules 24h 30 days Active Risperdal 1 MG Orally twice a day 1 tablet 12h 30 days Active Pantoprazole Sodium 40 mg Orally Once a day 1 tablet 24h Active Alprazolam 1 MG Orally Once a day, hs 1 tablet 28 days Active Colace 100 mg Orally Once a day 1 capsule as needed 24h 30 Active Ranitidine HCl 150 MG Orally twice a day 1 tablet at bedtime 12h Active Atorvastatin Calcium 80 MG Orally at bedtime 1 tablet Active Clobetasol Propionate 0.05 SHAMPOO HAIR/SCALP, LEAVE ON 15 MINUTES AND RINSE WELL.. USE DAILY FOR 4 WEEKS. Active Oxycodone HCl 5 mg Orally every 6 hrs, prn pain 1 tablet 14 Mar, 2017 28 days Active Rivastigmine 4.6 APPLY 1 PATCH TO SKIN ONCE A DAY 30 Active Nitrofurantoin Monohyd Macro 100 MG Orally daily with Supper 1 capsule with food Active ProAir HFA 108 (90 Base) MCG/ACT Inhalation every 6 hrs 2 puffs as needed 6h Active Cetirizine HCl 10 TAKE 1 TABLET BY MOUTH DAILY 22 Active Risperidone 1 TAKE 1 TABLET BY MOUTH TWICE DAILY 30 Active RESULTS No Results PROCEDURES Procedure Date Ordered Result Body Site SPECIMEN HANDLING Apr 13, 2017 INSTRUCTIONS MEDICATIONS ADMINISTERED No Known Medications [...]
--- OUTSIDE RECORDS SUMMARY | 2017-10-27 08:25 | XMS REPORT | Continuity of Care Document ---
Author Author [facility] Organization [facility] Address Unknown Phone Unavailable Allergies Active Description Code Type Severity Reaction Onset Reported/Identified Relationship to Patient Clinical Status Yes eggs Food Allergy N/A N/A Yes lactose intolerent Food Allergy N/A N/A Yes No Known Medication Allergies NKMA N/A N/A 06/23/2014 Yes No Known Drug Allergies [id number] Drug Allergy Unknown N/A 06/16/2017 Medications Medication Packaging Start Date Stop Date Route Dosage Sig Hydrocodone-Acetaminophen 10-325 MG Oral Tablet Tablet 01/28/2011 Tablet 150 TAKE ONE TABLET BY MOUTH EVERY 4 TO 6 HOURS NEEDED MAX 5 PER DAYMAY FILL ON OR AFTER 03/27/15 OxyCONTIN 20 MG Oral Tablet ER 12 Hour Abuse-Deterrent Tablet ER 12 Hour Abuse-Deterrent 06/13/2013 Tablet ER 12 Hour Abuse-Deterrent 60 TAKE 1 TABLET Q 12HRSMUST LAST 30 DAYS*MAY FILL ON OR AFTER 03/27/15* Evzio 0.4 MG/0.4ML Injection Solution Auto-injector 0.4 ML Package (2 Packages) 03/27/2015 0.4 ML Package (2 Packages) 1 INJECT 0.4MG SC/IM Q 2-3MIN NEEDED PER OVERDOSE Problems Date Dx Coded Attending Type Code Diagnosis Diagnosed By Working I63.9 CVA ( cerebral vascular accident) Donnie Blanco Working I63.9 CVA (cerebral vascular accident) Donnie Blanco Working Z79.899 High risk medication use Handy Shanks Working Z79.899 High risk medication use 06/21/2010 Ot 412 06/21/2010 Ot 414.00 06/21/2010 Ot 490 06/21/2010 Ot 786.2 06/21/2010 Ot V45.82 06/21/2010 Ot V58.66 06/21/2010 Ot V58.69 09/18/2014 Working K22.70 Short- segment Peña's esophagus 09/18/2014 Working R60.9 Edema 09/18/2014 Donnie Blanco Working K22.70 Short-segment Peña's esophagus 09/18/2014 Donnie Blanco Working R60.9 Edema 09/18/2014 Handy Shanks Working K22.70 Short-segment Peña's esophagus 09/18/2014 aHndy Shanks Working R60.9 Edema 11/05/2014 Working M25.551 Right hip pain 11/05/2014 Working M79.604 Right leg pain 11/05/2014 Donnie Blanco Working M25.551 Right hip pain 11/05/2014 Donnie Blanco Working M79.604 Right leg pain 11/05/2014 Handy Shanks Working M25.551 Right hip pain 11/05/2014 Handy Shanks Working M79.604 Right leg pain 11/08/2014 Working E87.6 Hypokalemia 11/08/2014 Working F41.9 Anxiety 11/08/2014 Working J30.9 Allergic rhinitis 11/08/2014 Working N28.9 Renal insufficiency 11/08/2014 Donnie Blanco Working E87.6 Hypokalemia 11/08/2014 Donnie Blanco Working F41.9 Anxiety 11/08/2014 Donnie Blanco Working J30.9 Allergic rhinitis 11/08/2014 Donnie Blanco Working N28.9 Renal insufficiency 11/08/2014 Handy Shanks Working E87.6 Hypokalemia 11/08/2014 Handy Shanks Working F41.9 Anxiety 11/08/2014 Handy Shanks Working J30.9 Allergic rhinitis 11/08/2014 Handy Shanks Working N28.9 Renal insufficiency 11/12/2014 Working H90.5 Hearing loss, sensorineural 11/12/2014 Donnie Blanco Working H90.5 Hearing loss, sensorineural 11/12/2014 Handy Shanks Working H90.5 Hearing loss, sensorineural 11/20/2014 Working M54.5 Low back pain radiating to right leg 11/20/2014 Working M79.7 Fibromyalgia 11/20/2014 Donnie Blanco Working M79.7 Fibromyalgia 03/26/2015 Working E66.9 Obesity 03/26/2015 Working E78.5 Hyperlipidemia 03/26/2015 Working F32.9 Depression 03/26/2015 Working G62.9 Peripheral neuropathy 03/26/2015 Working I10 Hypertension 03/26/2015 Working I25.10 CAD ( coronary atherosclerotic disease) 03/26/2015 Working J44.9 Chronic obstructive pulmonary disease 03/26/2015 Working K21.0 Reflux esophagitis 03/26/2015 Working M19.90 Osteoarthritis 03/26/2015 Working M62.81 Right sided weakness 03/26/2015 Working R47.1 Dysarthria on examination 03/26/2015 Donnie Blanco Working E66.9 Obesity 03/26/2015 Donnie Blanco Working E78.5 Hyperlipidemia 03/26/2015 Donnie Blanco Working F32.9 Depression 03/26/2015 Donnie Blanco Working G62.9 Peripheral neuropathy 03/26/2015 Donnie Blanco Working I10 Hypertension 03/26/2015 Donnie Blanco Working I25.10 CAD (coronary atherosclerotic disease) 03/26/2015 Donnie Blanco Working J44.9 Chronic obstructive pulmonary disease 03/26/2015 Donnie Blanco Working K21.0 Reflux esophagitis 03/26/2015 Donnie Blanco Working M19.90 Osteoarthritis 03/26/2015 Donnie Blanco Working M62.81 Right sided weakness 03/26/2015 Donnie Blanco Working R47.1 Dysarthria on examination 03/26/2015 Handy Shanks Working E78.5 Hyperlipidemia 03/26/2015 Handy Shanks Working G62.9 Peripheral neuropathy 03/26/2015 Handy Shanks Working I10 Hypertension 03/26/2015 Handy Shanks Working K21.0 Reflux esophagitis 03/26/2015 Handy Shanks Working R47.1 Dysarthria on examination 03/27/2015 Donnie Blanco Working M54.5 Low back pain radiating to right leg 04/03/2015 Handy Shanks Working E66.9 Obesity 04/03/2015 Handy Shanks Working F32.9 Depression 04/03/2015 Handy Shanks Working I25.10 CAD (coronary atherosclerotic disease) 04/03/2015 Handy Shanks Working I63.9 CVA (cerebral vascular accident) 04/03/2015 Handy Shanks Working J44.9 Chronic obstructive pulmonary disease 04/03/2015 Handy Shanks Working M19.90 Osteoarthritis 04/03/2015 Handy Shanks Working M54.5 Low back pain radiating to right leg 04/03/2015 Handy Shanks Working M79.7 Fibromyalgia 04/03/2015 Handy Shanks Working N39.0 Urinary tract infection 04/03/2015 Handy Shanks Working R53.1 Generalized weakness 04/03/2015 Handy Shanks Working R53.83 Lethargy 04/08/2015 FABIEN APONTE B961 Klebsiella pneumoniae as the cause of diseases classd elswhr 04/08/2015 FABIEN APONTE Z83255 Nicotine dependence, cigarettes, uncomplicated 04/08/2015 FABIEN APONTE N390 Urinary tract infection, site not specified 04/08/2015 FABIEN APONTE R531 Weakness 05/14/2015 WES FLAHERTY APRN Ot F17.211 NICOTINE DEPENDENCE, CIGARETTES, IN [place] 05/14/2015 WES FLAHERTY APRN Ot L03.115 CELLULITIS OF RIGHT LOWER LIMB 01/29/2016 LILIYA KIRK MD, Ot R13.10 DYSPHAGIA, UNSPECIFIED 01/29/2016 REAGAN ARAUJO, LILIYA Morales Ot Z01.818 ENCOUNTER FOR OTHER PREPROCEDURAL EXAMIN 01/29/2016 LILIYA KIRK MD Ot K22.70 PEÑA'S ESOPHAGUS WITHOUT DYSPLASIA 01/29/2016 LILIYA KIRK MD, Ot K22.719 PEÑA'S ESOPHAGUS WITH DYSPLASIA, UNSP 01/29/2016 LILIYA KIRK MD, Ot K29.40 CHRONIC ATROPHIC GASTRITIS WITHOUT BLEED 01/29/2016 LILIYA KIRK MD, Ot K44.9 DIAPHRAGMATIC HERNIA WITHOUT OBSTRUCTION 02/08/2016 LILIYA KIRK MD, Ot K22.719 PEÑA'S ESOPHAGUS WITH DYSPLASIA, UNSP 02/08/2016 LILIYA KIRK MD, Ot K29.40 CHRONIC ATROPHIC GASTRITIS WITHOUT BLEED 02/08/2016 LILIYA KIRK MD Ot K44.9 DIAPHRAGMATIC HERNIA WITHOUT OBSTRUCTION 07/12/2016 MADYSON ARAUJO, OLEG Granda Ot N32.81 OVERACTIVE BLADDER 07/12/2016 MADYSON ARAUJO, OLEG A Ot N36.42 INTRINSIC SPHINCTER DEFICIENCY (ISD) 07/12/2016 MADYSON ARAUJO, OLEG Granda Ot N39.46 MIXED INCONTINENCE 07/12/2016 MADYSON ARAUJO, OLEG Granda Ot Z01.818 ENCOUNTER FOR OTHER PREPROCEDURAL EXAMIN 07/15/2016 MADYSON ARAUJO, OLEG Granda Ot N32.81 OVERACTIVE BLADDER 07/15/2016 MADYSON ARAUJO, [...] N32.81 OVERACTIVE BLADDER 07/21/2016 MADYSON ARAUJO, OLEG Granda Ot N36.42 INTRINSIC SPHINCTER DEFICIENCY (ISD) 07/21/2016 MADYSON ARAUJO, OLEG Granda Ot N39.46 MIXED INCONTINENCE 05/11/2017 NATALIE ARAUJO, SHANIQUA Peng Ot Z12.31 ENCNTR SCREEN MAMMOGRAM FOR MALIGNANT NE 06/08/2017 JULES CAHN MD Ot K92.1 MELENA 06/08/2017 JULES CHAN MD Ot Z01.818 ENCOUNTER FOR OTHER PREPROCEDURAL EXAMIN 06/08/2017 JULES CHAN MD Ot Z12.11 ENCOUNTER FOR SCREENING FOR MALIGNANT NE 06/23/2017 HERNAN BRYAN MD Ot E66.9 OBESITY, UNSPECIFIED 06/23/2017 HERNAN BRYAN MD Ot E78.5 HYPERLIPIDEMIA, UNSPECIFIED 06/23/2017 HERNAN BRYAN MD Ot E88.09 OTH DISORDERS OF PLASMA-PROTEIN METABOLI 06/23/2017 HERNAN BRYAN MD Ot F41.9 ANXIETY DISORDER, UNSPECIFIED 06/23/2017 HERNAN BRYAN MD Ot I10 ESSENTIAL (PRIMARY) HYPERTENSION 06/23/2017 HERNAN BRYAN MD, Ot I25.10 ATHSCL HEART DISEASE OF [place] CORONARY 06/23/2017 HERNAN BRYAN MD, Ot Z48.815 ENCNTR FOR SURGICAL AFTCR FOLLOWING SURG 06/23/2017 HERNAN BRYAN MD, Ot Z68.31 BODY MASS INDEX (BMI) 31.0-31.9, ADULT 06/23/2017 HERNAN BRYAN MD, Ot Z87.891 PERSONAL HISTORY OF NICOTINE DEPENDENCE 06/23/2017 HERNAN BRYAN MD, Ot Z95.5 PRESENCE OF CORONARY ANGIOPLASTY IMPLANT Procedures There is no data. Results Test Result Range Basic Metabolic Panel (8) - 03/31/16 10:19 Glucose, Serum 127 mg/dL 65-99 BUN 13 mg/dL 8-27 Creatinine, Serum 1.14 mg/dL 0.57-1.00 eGFR If NonAfricn Am 52 mL/min/1.73 >59 eGFR If Africn Am 60 mL/min/1.73 >59 BUN/Creatinine Ratio 11 11-26 Sodium, Serum 142 mmol/L 136-144 Potassium, Serum 4.3 mmol/L 3.5-5.2 Chloride, Serum 103 mmol/L 97-106 Carbon Dioxide, Total 24 mmol/L 18-29 Calcium, Serum 9.2 mg/dL 8.7-10.3 Uric Acid, Serum - 03/31/16 10:19 Uric Acid, Serum 7.4 mg/dL 2.5-7.1 Basic Metabolic Panel (8) - 05/12/16 10:14 Glucose, Serum 131 mg/dL 65-99 BUN 20 mg/dL 8-27 Creatinine, Serum 1.12 mg/dL 0.57-1.00 eGFR If NonAfricn Am 53 mL/min/1.73 >59 eGFR If Africn Am 61 mL/min/1.73 >59 BUN/Creatinine Ratio 18 11-26 Sodium, Serum 140 mmol/L 134-144 Potassium, Serum 4.2 mmol/L 3.5-5.2 Chloride, Serum 103 mmol/L 96-106 Carbon Dioxide, Total 23 mmol/L 18-29 Calcium, Serum 9.4 mg/dL 8.7-10.3 B-Type Natriuretic Peptide - 06/13/16 09:50 B-Type Natriuretic Peptide 116.5 pg/mL 0.0-100.0 Methicillin resistant Staphylococcus aureus (MRSA) screening culture - 06:28 Methicillin resistant Staphylococcus aureus (MRSA) screening culture NEG [facility] Basic Metabolic Panel (8) - 07/28/16 10:03 Glucose, Serum 180 mg/dL 65-99 BUN 15 mg/dL 8-27 Creatinine, Serum 0.91 mg/dL 0.57-1.00 eGFR If NonAfricn Am 68 mL/min/1.73 >59 eGFR If Africn Am 79 mL/min/1.73 >59 BUN/Creatinine Ratio 16 11-26 Sodium, Serum 140 mmol/L 134-144 Potassium, Serum 4.1 mmol/L 3.5-5.2 Chloride, Serum 100 mmol/L 96-106 Carbon Dioxide, Total 18 mmol/L 18-29 Calcium, Serum 9.8 mg/dL 8.7-10.3 SUREPATH PAP AND HPV mRNA E6/E7 - 04/13/17 10:56 CLINICAL INFORMATION: NRG LMP: NRG PREV. PAP: NORMAL NRG PREV. BX: NONE NRG SOURCE: Cervix NR STATEMENT OF ADEQUACY: NR INTERPRETATION/RESULT: NR FINISHING DEPARTMENT SUPERVISOR: NRG HPV mRNA E6/E7, SUREPATH VIAL Detected NOT DETECTED REVIEW FINISHING DEPARTMENT SUPERVISOR: NRG INFECTION: [facility] PATHOLOGY REPORT (TISSUE PAHOLOGY) - 05/24/17 15:12 CLINICAL INFORMATION [facility] PATHOLOGIST [facility] TISSUE, 2 SPECIMENS - 05/24/17 15:12 A SOURCE NRG A GROSS DESCRIPTION NR A DIAGNOSIS NR Complete blood count (CBC) with automated white blood cell (WBC) differential - 06/17/17 05:05 Blood leukocytes automated count (number/volume) 7.2 10*3/uL 4.3-11.0 Blood erythrocytes automated count (number/volume) 3.78 10*6/uL 4.35-5.85 Venous blood hemoglobin measurement (mass/volume) 11.8 g/dL 11.5-16.0 Blood hematocrit (volume fraction) 34 % 35-52 Automated erythrocyte mean corpuscular volume 91 [foz_us] 80-99 Automated erythrocyte mean corpuscular hemoglobin (mass per erythrocyte) 31 pg 25-34 Automated erythrocyte mean corpuscular hemoglobin concentration measurement ( mass/volume) 34 g/dL 32-36 Automated erythrocyte distribution width ratio 13.9 % 10.0-14.5 Automated blood platelet count (count/volume) 543 10*3/uL 130-400 Automated blood platelet mean volume measurement 8.8 [foz_us] 7.4-10.4 Automated blood neutrophils/100 leukocytes 66 % 42-75 Automated blood lymphocytes/100 leukocytes 20 % 12-44 Blood monocytes/100 leukocytes 13 % 0-12 Automated blood eosinophils/100 leukocytes 1 % 0-10 Automated blood basophils/100 leukocytes 1 % 0-10 Blood neutrophils automated count (number/volume) 4.7 10*3 1.8-7.8 Blood lymphocytes automated count (number/volume) 1.4 10*3 1.0-4.0 Blood monocytes automated count (number/volume) 0.9 10*3 0.0-1.0 Automated eosinophil count 0.1 10*3/uL 0.0-0.3 Automated blood basophil count (count/volume) 0.1 10*3/uL 0.0-0.1 Comprehensive metabolic panel - 06/17/17 05:05 Serum or plasma sodium measurement (moles/volume) 140 mmol/L 135-145 Serum or plasma potassium measurement (moles/volume) 3.6 mmol/L 3.6-5.0 Serum or plasma chloride measurement (moles/volume) 108 mmol/L 98-107 Carbon dioxide 20 mmol/L 21-32 Serum or plasma anion gap determination (moles/volume) 12 mmol/L 5-14 Serum or plasma urea nitrogen measurement (mass/volume) 7 mg/dL 7-18 Serum or plasma creatinine measurement (mass/volume) 0.71 mg/dL 0.60-1.30 Serum or plasma urea nitrogen/creatinine mass ratio 10 NRG Serum or plasma creatinine measurement with calculation of estimated glomerular filtration rate > NRG Serum or plasma glucose measurement (mass/volume) 111 mg/dL 70-105 Serum or plasma calcium measurement (mass/volume) 8.6 mg/dL 8.5-10.1 Serum or plasma total bilirubin measurement (mass/volume) 0.5 mg/dL 0.1-1.0 Serum or plasma alkaline phosphatase measurement (enzymatic activity/volume) 87 U/L 40-136 Serum or plasma aspartate aminotransferase measurement (enzymatic activity/ volume) 21 U/L 5-34 Serum or plasma alanine aminotransferase measurement (enzymatic activity/volume ) 16 U/L 0-55 Serum or plasma protein measurement (mass/volume) 6.4 g/dL 6.4-8.2 Serum or plasma albumin measurement (mass/volume) 3.1 g/dL 3.2-4.5 Lipid 1996 panel - 06/17/17 05:05 Serum or plasma triglyceride measurement (mass/volume) 178 mg/dL <150 Serum or plasma cholesterol measurement (mass/volume) 126 mg/dL < 200 Serum or plasma cholesterol in HDL measurement (mass/volume) 24 mg/ dL 40-60 Cholesterol in LDL [mass/volume] in serum or plasma by direct assay 77 mg/dL 1-129 Serum or plasma cholesterol in VLDL measurement (mass/volume) 36 mg/ dL 5-40 Complete blood count (CBC) with automated white blood cell (WBC) differential - 06/21/17 12:09 Blood leukocytes automated count (number/volume) 8.3 10*3/uL 4.3-11.0 Blood erythrocytes automated count (number/volume) 3.65 10*6/uL 4.35-5.85 Venous blood hemoglobin measurement (mass/volume) 11.1 g/dL 11.5-16.0 Blood hematocrit (volume fraction) 33 % 35-52 Automated erythrocyte mean corpuscular volume 90 [foz_us] 80-99 Automated erythrocyte mean corpuscular hemoglobin (mass per erythrocyte) 30 pg 25-34 Automated erythrocyte mean corpuscular hemoglobin concentration measurement ( mass/volume) 34 g/dL 32-36 Automated erythrocyte distribution width ratio 14.0 % 10.0-14.5 Automated blood platelet count (count/volume) 456 10*3/uL 130-400 Automated blood platelet mean volume measurement 8.9 [foz_us] 7.4-10.4 Automated blood neutrophils/100 leukocytes 73 % 42-75 Automated blood lymphocytes/100 leukocytes 14 % 12-44 Blood monocytes/100 leukocytes 11 % 0-12 Automated blood eosinophils/100 leukocytes 2 % 0-10 Automated blood basophils/100 leukocytes 0 % 0-10 Blood neutrophils automated count (number/volume) 6.1 10*3 1.8-7.8 Blood lymphocytes automated count (number/volume) 1.2 10*3 1.0-4.0 Blood monocytes automated count (number/volume) 0.9 10*3 0.0-1.0 Automated eosinophil count 0.1 10*3/uL 0.0-0.3 Automated blood basophil count (count/volume) 0.0 10*3/uL 0.0-0.1 Comprehensive metabolic panel - 06/21/17 12:09 Serum or plasma sodium measurement (moles/volume) 143 mmol/L 135-145 Serum or plasma potassium measurement (moles/volume) 3.7 mmol/L 3.6-5.0 Serum or plasma chloride measurement (moles/volume) 110 mmol/L 98-107 Carbon dioxide 21 mmol/L 21-32 Serum or plasma anion gap determination (moles/volume) 12 mmol/L 5-14 Serum or plasma urea nitrogen measurement (mass/volume) 17 mg/dL 7-18 Serum or plasma creatinine measurement (mass/volume) 0.90 mg/dL 0.60-1.30 Serum or plasma urea nitrogen/creatinine mass ratio 19 NRG Serum or plasma creatinine measurement with calculation of estimated glomerular filtration rate > NRG Serum or plasma glucose measurement (mass/volume) 119 mg/dL 70-105 Serum or plasma calcium measurement (mass/volume) 8.3 mg/dL 8.5-10.1 Serum or plasma total bilirubin measurement (mass/volume) 0.5 mg/dL 0.1-1.0 Serum or plasma alkaline phosphatase measurement (enzymatic activity/volume) 108 U/L 40-136 Serum or plasma aspartate aminotransferase measurement (enzymatic activity/ volume) 14 U/L 5-34 Serum or plasma alanine aminotransferase measurement (enzymatic activity/volume ) 12 U/L 0-55 Serum or plasma protein measurement (mass/volume) 5.8 g/dL 6.4-8.2 Serum or plasma albumin measurement (mass/volume) 2.7 g/dL 3.2-4.5 Encounters ACCT No. Visit Date/Time Discharge Status Pt. Type Provider Facility Loc./Unit Complaint [id number] 03/31/2015 06:45:00 04/04/2015 03:30:02 DIS Outpatient UNASSIGNED DOCTOR, DOCTOR [id number] 03/31/2015 07:23:00 04/01/2015 02:46:49 DIS Emergency FADI AFBIEN Bernie [id number] 06/23/2014 08:59:00 06/23/2014 23:59:00 [facility]BILATERAL HIP PAIN, HX OF REPLACEMENTS/DR HANDY LOOMIS [id number] 04/06/2015 04:38:31 04/06/2015 23:59:59 CLS Outpatient Handy Shanks [facility] 1 [id number] 03/28/2015 07:53:59 03/28/2015 23:59:59 CLS Outpatient BlancoAkilah angelbridget [facility] 1 [id number] 03/27/2015 22:38:27 Document Registration [id number] 03/27/2015 22:38:17 Document Registration [id number] 03/27/2015 22:38:08 Document Registration [id number] 03/27/2015 04:59:21 Document Registration [id number] 06/16/2017 13:40:00 06/23/2017 12:58:00 DIS Inpatient RANDI ARAUJO, HERNAN Mccarthy [facility] IRF DEBILITY [id number] 06/14/2017 09:30:00 06/14/2017 23:59:59 CLS Preadmit JULES CHAN MD [facility] ENDO SCREENING/+BLOOD IN STOOLS [id number] 06/07/2017 05:31:00 06/07/2017 23:59:59 CLS Outpatient JULES CHAN MD [facility] PREOP COLONOSCOPY [id number] 04/20/2017 13:03:00 04/20/2017 23:59:59 CLS Outpatient SHANIQUA ESTRADA MD [facility] RAD WELL WOMAN EXAM [id number] 03/02/2017 14:11:00 03/02/2017 23:59:59 CLS Preadmit DELMI BYRNES MD [facility] RAD ROUTINE MAINTENANCE [id number] 07/15/2016 06:05:00 07/15/2016 09:35:00 DIS [facility]IN[facility] [id number] 07/11/2016 12:28:00 07/11/2016 12:58:00 DIS Outpatient OLEG COUGHLIN MD [facility] PREOP INCONT [id number] 01/29/2016 09:11:00 01/29/2016 12:00:00 DIS Outpatient LILIYA KIRK MD [facility] SDC DYSPHAGIA [id number] 01/28/2016 06:11:00 01/28/2016 23:59:59 CLS Outpatient LILIYA KIRK MD [facility] PREOP DYSPHAGIA [id number] 05/14/2015 20:48:00 05/14/2015 22:18:00 DIS Emergency WES FLAHERTY APRN [facility] ER R ARM/LEG SWELLING/PAIN [id number] 06/21/2010 20:53:00 Document Registration [id number] 10/13/2017 14:00:00 10/13/2017 23:59:59 CLS Outpatient SONIYA ARAUJO, DELMI [facility] [place] [id number] 05/24/2017 13:20:00 Document Registration [id number] 04/13/2017 10:20:00 Document Registration [id number] 06/14/2016 12:08:00 Document Registration [id number] 07/29/2016 07:06:00 Document Registration [id number] 04/01/2016 08:46:00 Document Registration [id number] 05/13/2016 07:06:00 Document Registration
[2017-10-27] MEDS ORDERED: HURRICAINE EXT TUBE (BENZOCAINE) XX PRN (08:30)
[2017-10-27] MEDS ORDERED: LIDOCAINE JELLY 2% (XYLOCAINE) 5 ML TUBE MM PRN (08:30)
[2017-10-27] MEDS ORDERED: D5 LR IV SOLUTION 1,000 ML IV PRN (08:30)
[2017-10-27] MEDS ORDERED: MIDAZOLAM 2 MG/2 ML (VERSED) VIAL ONE ×3 (09:20→09:41)
[2017-10-27] MEDS ORDERED: fentaNYL INJECTION 100 MCG/2 ML AMP ONE ×2 (09:21→09:42)
[2017-10-27] MEDS ORDERED: HURRICAINE EXT TUBE (BENZOCAINE) ONE (09:21)
[2017-10-27] MEDS ORDERED: LIDOCAINE JELLY 2% (XYLOCAINE) 5 ML TUBE ONE (09:21)
--- NOTE | 2017-10-27 09:34 | Pre-Op Note & Conscious Sedat ---
Pre-Operative Progress Note H&P Reviewed The H&P was reviewed, patient examined and no changes noted. Date H&P Reviewed: Oct 27, 2017 Time H&P Reviewed: 08:50 Conscious Sedation Pre-Proced ASA Class: 3 Airway Mallampati Classification: ([place] appropriate class) I. II. III, IV Lungs Heart ASA score ASA 1: a normal healthy patient ASA 2: a patient with a mild systemic disease (mid diabetes, controlled hypertension, obesity ASA 3: a patient with a severe systemic disease that limits activity (angina , COPD, prior Myocardial infarction) ASA 4: a patient with an incapacitating disease that is a constant threat to life (CHF, renal failure) ASA 5: a moribund patient not expected to survive 24 hrs. (ruptured aneurysm) ASA 6: a declared brain patient whose organs are being harvested. For emergent operations, add the letter E after the classification Grade 4 Sedation Plan: Analgesia, Amnesia, Plan communicated to team members, Discussed options with patient/fam, Discussed risks with patient/fam Note The patient is an appropriate candidate to undergo the planned procedure, sedation, and anesthesia. The patient immediately re-assessed prior to indication. LILIYA KIRK MD Oct 27, 2017 09:33
[2017-10-27] MEDS: fentaNYL INJECTION 100 MCG/2 ML AMP IVP PRN ×3 (09:38→09:52)
[2017-10-27] MEDS: MIDAZOLAM 2 MG/2 ML (VERSED) VIAL IVP PRN ×3 (09:40→09:50)
[2017-10-27 10:20] VITALS: BP 121/74
[2017-10-27 10:50] VITALS: BP 124/74
--- NOTE | 2017-10-27 15:27 | OPERATIVE REPORT ---
DATE OF SERVICE: EGD SUMMARY PROCEDURE: EGD was performed for dysphagia evaluation. The patient was placed in the left lateral decubitus position. The endoscope was inserted in the oral cavity under direct visualization esophagus was intubated. The scope was passed down the esophagus through the stomach and second portion of the duodenum. Careful inspection was made as the endoscope was withdrawn. FINDINGS: Proximal and mid esophagus were unremarkable. A benign appearing stricture was noted about 3 cm proximal to the Z line and shallow likely ulceration with some adherent blood clots. A biopsy was obtained and submitted for histopathology, but no nodularity was noted. I was able to get the endoscope past the area where the Z line was mildly erythematous, but without evidence for erosive esophagitis at the level of the GE junction. There is a small to moderate size hiatal hernia present. The cardia, fundus and antrum of the stomach were unremarkable. The pylorus, the pyloric channel, the duodenal bulb and second portion of the duodenum were unremarkable as well. In addition, biopsies were obtained from the Z line and submitted for histopathology. ASSESSMENT: Benign appearing stricture with an associated ulcer was noted 3 cm proximal to the Z line in the distal esophagus. It was dilated to a maximum of 56-Welsh size of the balloon dilator. The patient tolerated the procedure without difficulty. Would not recommend surveillance EGD unless there is evidence for Peña's change on today's biopsies. I advocated that she hold her aspirin for 2 weeks and then decrease the dose to 81 mg enteric coated. She is on rather maximal acid suppression. I advocated that she continue her metoclopramide, get a wedge or elevate the head of her bed and can also utilize Pepto-Bismol 2 tabs q. 4 hours p.r.n. breakthrough symptoms. Considering her history, it is likely in the future as she will need to be dilated, but based on dysphagia symptoms. If the patient only get short-term benefit or no benefit consider surgical referral and 24-hour pH study. I thank you for the referral. Sincerely, Job ID: [id number] DocumentID: [id number] Dictated Date: 10/27/2017 11:08:25 Corrective Therapy Aide Teacher Date: 10/27/2017 15:27:10 Dictated By: LILIYA KIRK MD [facility]
== END 2017-10-27 11:05 | disposition home or self-care (01) ==
LOC: ENDO 08:00
PROVIDERS: ATTEND Internal Medicine
DX: K22.70 Barrett's esophagus without dysplasia (principal); K22.2 Esophageal obstruction; K44.9 Diaphragmatic hernia without obstruction or gangrene; I12.9 Hypertensive chronic kidney disease with stage 1 through stage 4 chronic kidney disease, or unspecified chronic kidney disease; N18.3 Chronic kidney disease, stage 3 (moderate); Z87.891 Personal history of nicotine dependence; Z79.82 Long term (current) use of aspirin; Z79.899 Other long term (current) drug therapy
CPT/HCPCS: 88305

== ENCOUNTER → 2018-06-28 | Outpatient (CLI) | payer MEDICAID ==
--- NOTE | 2018-06-28 15:51 | Diagnostic Imaging Report ---
INDICATION: Bilateral shoulder arthritis. Time of exam 11:51 a.m. FINDINGS: Multiple views of the bilateral shoulders were obtained. Glenohumeral and acromioclavicular alignment is normal. There is significant glenohumeral joint degenerative change bilaterally. There is joint space narrowing, sclerosis and subchondral cyst formation involving the humeral heads and glenoids bilaterally. No fractures are seen. Acromiohumeral space is maintained. IMPRESSION: Severe bilateral glenohumeral joint degenerative change. Dictated by: Dictated on workstation # [id number]
== END ==
LOC: RAD FS 11:23
PROVIDERS: ATTEND Nurse Practitioner
DX: M19.011 Primary osteoarthritis, right shoulder (principal); M19.012 Primary osteoarthritis, left shoulder

== ENCOUNTER → 2018-10-25 | Outpatient (CLI) | payer MEDICAID ==
[~2018-10-25] MED LIST changes: -AMLO10TA2 PO; +AMLO10TA7 PO; -AMLO5TAB2 PO; +AMLO5TAB9 PO; +TRAZ-190 PO; +TRAZ-222 PO; -TRAZ-28 PO; -TRAZ100T92 PO
--- NOTE | 2018-10-25 16:19 | Diagnostic Imaging Report ---
INDICATION: Abdominal pain. FINDINGS: Supine and erect views of the abdomen were obtained. There is some gas in both the large and small bowel in a nonspecific fashion. There is no evidence for a bowel obstruction. There is a considerable amount of fecal material throughout the colon. There is no mass, organomegaly, or pathological calcification evident. There is no sign of pneumoperitoneum on the erect film. There are surgical sutures overlying the left mid abdomen. There are also total hip prostheses in place. The total hip prosthesis on the left is similar to the prior exam of 03/23/2006. The prosthesis on the right seen previously appears to have been revised as there are now orthopedic plate and screw fixation devices overlying the right acetabulum. 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 There is no acute bony abnormality noted. IMPRESSION: 1. The bowel gas pattern is nonspecific. There is no acute abnormality evident. 2. There is a considerable amount of fecal material throughout the colon. 3. There are postsurgical changes involving both hip joints. The total hip prosthesis on the right seen in 2005 has been revised. Dictated by: Dictated on workstation # [id number]
== END ==
LOC: RAD FS 15:50
PROVIDERS: ATTEND Nurse Practitioner Family
DX: R10.11 Right upper quadrant pain (principal); Z96.643 Presence of artificial hip joint, bilateral
CPT/HCPCS: 74019

== ENCOUNTER 2018-12-14 11:36 | Inpatient (IN) | payer MEDICAID ==
[~2018-12-14] VITALS: Ht 162.6 cm; Wt 108.7 kg
[~2018-12-14 11:36] MED LIST changes: -DULO30CA48 PO; +DULO30CA49 PO; +RANI-613 PO; -RANI150T46 PO
--- OUTSIDE RECORDS SUMMARY | 2018-12-14 11:44 | XMS REPORT | Clinical Summary ---
Author Author [facility] Organization [facility] Address Unknown Phone Unavailable Care Team Providers Care Specialist Employee Labor Relations Name Role Phone Sedrick Mei MD Unavailable Unavailable Ray Serna MD PCP Source Comments Some departments are not documenting in the electronic medical record. If you d o not see the information that you expected, contact Release of Information in [facility] [employer] Information Management department at [phone] for further assistan ce in locating additional records.[facility] Allergies No Known Allergies Medications End Date Status Medication Sig Dispensed Refills Start Date Active atenolol (TENORMIN) 50 mg Take 50 mg by 0 tablet mouth twice daily. Active cholecalciferol (VITAMIN Take 2,000 0 D-3) 1,000 units tablet Units by mouth daily. Active loratadine (CLARITIN) 10 Take 10 mg by 0 mg tablet mouth every morning. Active duloxetine DR (CYMBALTA) Take 30 mg by 0 30 mg capsule mouth twice daily. Active rivastigmine(+) (EXELON) Apply 1 Patch 0 4.6 mg/24 hr transdermal to top of patch skin as directed daily. Active folic acid (FOLVITE) 1 mg Take 1 mg by 0 tablet mouth daily. Active loperamide (IMODIUM) 2 mg Take 2 mg by 0 capsule mouth every 6 hours as needed for Diarrhea. Active pantoprazole DR Take 40 mg by 0 (PROTONIX) 40 mg tablet mouth daily. Active risperiDONE (RISPERDAL) 1 Take 1 mg by 0 mg tablet mouth twice daily. Active MULTIVIT,TH IRON,OTHER Take 1 Tab by 0 MIN (THERA-M PO) mouth daily. Active triamcinolone acetonide Apply 0 (KENALOG) 0.1 % topical topically to cream affected area every 12 hours. Active ranitidine hcl(+) Take 150 mg 0 (ZANTAC) 150 mg tablet by mouth twice daily. Active Cetirizine (ZYRTEC) 10 mg Take by 0 cap mouth daily. Active ALPRAZolam (XANAX) 1 mg Take 1 mg by 0 tablet mouth every 6 hours as needed for Anxiety. Active acetaminophen (TYLENOL) Take 2 Tabs 0 325 mg tablet by mouth four 6 times daily. AFTER one week taking it as scheduled, you may transition to use as needed, 1-2 tabs every 4 hours if needed. Do not take more than 4 grams (4,000 mg) in 24 hours. This medication may be purchased from over the counter from your preferred pharmacy Active aspirin 325 mg tablet Take 1 Tab by 60 Tab 0 mouth twice 6 daily. Start this the day after your final lovenox injection and continue for 4 weeks. This is to prevent blood clots This medication may be purchased from over the counter from your preferred pharmacy Active docusate (COLACE) 100 mg Take 1 Cap by 180 Cap 3 capsule mouth twice 6 daily. Use while taking pain medications. Hold if you are having loose stools Active oxyCODONE (ROXICODONE, Take 1-2 Tabs 100 Tab 0 OXY-IR) 5 mg tablet by mouth 6 every 3 hours as needed for Pain Active diclofenac sodium DR Take 75 mg by 0 (VOLTAREN) 75 mg tablet mouth twice daily. Take with food. Active metoprolol tartrate Take 50 mg by 0 (LOPRESSOR) 50 mg tablet mouth twice daily. Active traZODone (DESYREL) 50 mg Take 50 mg by 0 tablet mouth at bedtime as needed for Sleep. Active fesoterodine ER(+) Take 4 mg by 0 (TOVIAZ) 4 mg tablet mouth daily. 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 03/18/2016 Complications due to internal orthopedic device, implant, and graft 02/12/2016 03/18/2016 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 Last Filed Vital Signs Reading Time Taken Comments Vital Sign 128/100 06/02/2017 12:32 PM CONTINUOUS IMPROVEMENT COORDINATOR Blood Pressure 65 06/02/2017 11:38 AM CONTINUOUS IMPROVEMENT COORDINATOR Pulse 36.4 C (97.5 F) 06/02/2017 11:38 AM CONTINUOUS IMPROVEMENT COORDINATOR Temperature 18 06/02/2017 11:38 AM CONTINUOUS IMPROVEMENT COORDINATOR Respiratory Rate 97% 06/02/2017 12:32 PM CONTINUOUS IMPROVEMENT COORDINATOR Oxygen Saturation - - Inhaled Oxygen Concentration 94.8 kg (209 lb) 06/02/2017 11:38 AM CONTINUOUS IMPROVEMENT COORDINATOR Weight 170.2 cm (5' 7") 06/02/2017 11:38 AM CONTINUOUS IMPROVEMENT COORDINATOR Height 32.73 06/02/2017 11:38 AM CONTINUOUS IMPROVEMENT COORDINATOR Body Mass Index Plan of Treatment Health Maintenance Due Date Last Done Comments HEPATITIS C SCREENING 1954 PHYSICAL (COMPREHENSIVE) 1961 EXAM HIV SCREENING 1969 DTAP/TDAP VACCINES (1 - 1972 Tdap) CERVICAL CANCER SCREENING 1984 BREAST CANCER SCREENING 1994 COLORECTAL CANCER 2004 SCREENING SHINGLES RECOMBINANT 2004 VACCINE (1 of 2) INFLUENZA VACCINE 02/12/2019 04/17/2006 Implants Device Identifier Shelf Expiration Date Model / Serial / Lot Implanted Type Area Manufactur er 212.109 / N/A / N/A Screw Bone 3.5mm 26mm Lcp Stainless SYNTHES:SY Steel Full Thread Pelvis NTHES [facility] Implanted: Qty: 1 on 03/02/2016 by Sedrick Mei MD at [facility] 212.110 / N/A / N/A Screw Bone 3.5mm 28mm Lcp Stainless SYNTHES:SY Steel Tibia Proximal NTHES [place] Implanted: Qty: 1 on 03/02/2016 by Sedrick Mei MD at [facility] 212.111 / N/A / N/A Screw Bone 3.5mm 30mm Lcp Stainless SYNTHES:SY Steel Tibia Proximal [employer] [place] Implanted: Qty: 1 on 03/02/2016 by Sedrick Mei MD at [facility] 212.116 / N/A / N/A Screw Bone 3.5mm 38mm Lcp Stainless SYNTHES:SY Steel Full Thread Pelvis [employer] [place] Implanted: Qty: 1 on 03/02/2016 by Sedrick Mei MD at [facility] 212.117 / N/A / N/A Screw Bone 3.5mm 40mm Lcp Stainless SYNTHES:SY Steel Tibia Proximal [employer] [place] Implanted: Qty: 1 on 03/02/2016 by Sedrick Mei MD at [facility] 212.124 / N/A / N/A Screw Bone 3.5mm 60mm Lcp Stainless SYNTHES:SY Steel Full Thread Pelvis [employer] [place] Implanted: Qty: 1 on 03/02/2016 by Sedrick Mei MD at [facility] 02.200.028 / N/A / N/A Screw Bone 3.5mm 6mm 28mm Lcp SYNTHES:SY Stainless Steel Full Thread [employer] [place] Implanted: Qty: 1 on 03/02/2016 by Sedrick Mei MD at [facility] 02.200.045 / N/A / N/A Screw Bone 3.5mm 6mm 45mm Lcp SYNTHES:SY Stainless Steel Full Thread [employer] [place] Implanted: Qty: 1 on 03/02/2016 by Sedrick Mei MD at [facility] 10/13/2016 [id number] / N/A / [id number] [id number] Liner Cementless THEO:HO Implanted: Qty: 1 on 03/02/2016 by Sedrick Ahn MD at [facility] 07/02/2020 [id number] / N/A / [id number] Insert Acetabular 60mm 28mm 0d X3 THEO:HO Duration Adm 12.9mm WMEDICA Implanted: Qty: 1 on 03/02/2016 by OSTESedrick Vargas MD at [facility] [id number] / [id number] / [id number] Screw Bone 4mm 18mm Dynatran Rflx Right: Hip THEO:ST Hybrid Titanium Spine Vari CONCHA Implanted: Qty: 1 on 03/02/2016 by ORTHOPAEDSedrick Ramírez MD at [facility] 04/14/2017 [id number] / N/A / [id number] Head Femoral +12mm Offset 28mm Hip THEO:ST Cocr V40 Lfit CONCHA Implanted: Qty: 1 on 03/02/2016 by Sedrick Rockwell MD at [facility] [id number] / [id number] / [id number] Hemispherical Shell 70mm/ I Right: Hip Implanted: Qty: 1 on 03/02/2016 by Sedrick Mei MD at [facility] / / [id number] Plate Screw 6.5mm X 35mm Right: Hip THEO Implanted: Qty: 1 on 03/02/2016 by Sedrick Mei MD at [facility] / [id number] Screw Bone 20mm 6.5mm Torx Right: Hip UNIDENTIFI Acetabular Cancellous ED MFG Implanted: Qty: 1 on 03/02/2016 by Sedrick Mei MD at [facility] / [id number] Screw Bone 20mm 6.5mm Torx Right: Hip UNIDENTIFI Acetabular Cancellous ED MFG Implanted: Qty: 1 on 03/02/2016 by Sedrick Mei MD at [facility] 02.100.109 / NA / NA Plate 117mm Stainless Steel 3.5mm Right: Hip SYNTHES:SY Screw 9 Hole Locking Low [employer]THES [place] Implanted: Qty: 1 on 03/02/2016 by Sedrick Mei MD at [facility] 02.100.110 / NA / NA Plate 130mm Stainless Steel 3.5mm Right: Hip SYNTHES:SY Screw 10 Hole Locking Low NTHES [place] Implanted: Qty: 1 on 03/02/2016 by Sedrick Mei MD at [facility] 204.660 / NA / NA Screw Bone 3.5mm 60mm Pelvic Cortex Right: Hip SYNTHES:SY Self Tap NTHES [place] Implanted: Qty: 1 on 03/02/2016 by Sedrick Mei MD at [facility] Device Identifier Shelf Expiration Date Model / Serial / Lot Explanted Type Area Manufactur er / NA / NA Total Hip Components Explanted: Qty: 3 on 03/02/2016 by Sedrick Mei MD at [facility] Results Not on filefrom Last 3 Months Insurance Type Payer Benefit Subscriber ID Effective Phone Address Plan / Dates Group Medicaid [employer] [employer] xxxxxxxxxxx 2010- STATE Present HEALTH (Home) [place] [address] Advance Directives Patient Premix Operator Concentrate Explanation Type Date Recorded Advance 03/02/2016 9:59 AM Directive/DPOA Date Inactivated Comments Code Status Date Activated 03/10/2016 2:13 PM Full Code 03/02/2016 8:16 PM Provider has discussed Code Status No, discussion not w/Patient or Family? necessary based on Dx
--- OUTSIDE RECORDS SUMMARY | 2018-12-14 11:52 | XMS REPORT ---
Author Angelo Kothari R Organization Unknown Address [address], [place] [id number] Phone Care Team Providers Care Ultrasound Technologist Sonographer Name Role Phone Dimitris Stephens PP Unavailable Unavailable Reason for Referral No Reason for Referral was given. History of Present Illness No HPI available. Problems * Peripheral Neuropathy Last Assessed: 09/26/2012 10:18:55 AM (356.9); ( Active) * Peripheral Vascular Disease Last Assessed: 09/26/2012 10:19:01 AM (443.9); (Active) * Normal Routine History And Physical Adult (V70.0); (Active) * Osteoarthritis (715.90); (Active) * Abdominal Pain (789.00); (Active) * Vaginitis (616.10); (Active) * Hematuria (599.70); (Active) * Foot Pain (Soft Tissue) (729.5); (Active) * Ankle Swelling (On Exam) (719.07); (Active) * Ankle Joint Pain (719.47); (Active) * Dyspepsia (536.8); (Active) * Ecchymosis Spontaneous (782.7); (Active) * Warts (078.10); (Active) * Gout (274.9); (Active) * Edema (782.3); (Active) * Lentigo (709.09); (Active) * 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); (Active) * 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); (Active) * Pain / Temp Decrease Leg / Foot (V49.3); (Active) * Lymphadenopathy (785.6); (Active) * Pleural Effusion (511.9); (Active) * Congestive Heart Failure (428.0); (Active) * Pneumonitis (486); (Active) * Pulmonary Edema (514); (Active) * Sudden Redness Of The Skin (Flushing) (782.62); (Active) * Asymptomatic Coronary Arteriosclerosis (414.00); (Active) * Esophageal Stricture (530.3); (Active) * Acute Erosive Gastritis (535.40); (Active) * Esophageal Ulcer (530.20); (Active) * Visit For: Preoperative Cardiovascular Exam (V72.81); (Active) * Fatigue (780.79); (Active) * Cold Feet Bilaterally (Active) * Cold Hands Bilaterally (Active) * Easy Bruising Tendency (Active) * Nausea (Symptom) (787.02); (Active) * Shortness Of Breath (786.05); (Active) * Menopause Has Occurred (V49.81); (Active) * Bilateral Leg Weakness (Active) * Arthropathy (716.90); (Active) * Pain In Both Legs (Active) * Insomnia (780.52); (Active) * Hypotension (458.9); (Active) * Anxiety (Symptom) (300.00); (Active) * Depression (311); (Active) * Fibromyalgia (729.1); (Active) * Idiopathic Peripheral Neuropathy (356.9); (Active) * Obesity (278.00); (Active) * Joint Pain In Both Hips (Active) * Lower Back Pain (724.2); (Active) * Cardiomyopathy (425.4); (Active) * Hyperlipidemia (272.4); (Active) * Hypertension (401.9); (Active) * Coronary Artery Disease (414.00); (Active) * PTCA (Active) * Nicotine Dependence (305.1); (Active) * Metatarsalgia (726.70); (Active) * Unable To Restrain Bowel Movement (787.60); (Active) * Chronic Antral Gastritis (535.40); (Active) * Difficulty Swallowing (Dysphagia) (787.20); (Active) * Esophageal Stenosis (530.3); (Active) * Hiatal Hernia (553.3); (Active) * Chronic Reflux Esophagitis (530.11); (Active) * Difficulty Breathing (Dyspnea) (786.09); (Active) * Tingling (Paresthesia) (782.0); (Active) * Urinary Incontinence (788.30); (Active) * Urinary Tract Infection (599.0); (Active) Medication * Cymbalta 60 MG Oral Capsule Delayed Release Particles; TAKE TWO CAPSULES BY MOUTH EVERY DAY; Start Date: 07/13/2009; End Date: (Active) * Singulair 10 MG Oral Tablet; take one tablet by mouth every day; Start Date: 04/06/2009; End Date: (Active) * Atenolol 50 MG Oral Tablet; Take One Tablet By Mouth Twice Daily; Start Date: 01/04/2008; End Date: (Active) * Aspirin 81 MG Oral Tablet; TAKE 1 TABLET DAILY.; Start Date: 01/04/2008 (Active) * Clopidogrel Bisulfate 75 MG Oral Tablet; take one tablet by mouth every day; Start Date: 11/03/2008; End Date: (Active) * Cetirizine HCl 10 MG Oral Tablet; take one tablet by mouth every day; Start Date: 04/06/2009; End Date: (Active) * ProAir HFA 108 (90 Base) MCG/ACT Inhalation Aerosol Solution; TAKE 2 PUFFS BY MOUTH EVERY 4 HOURS NEEDED; Start Date: 05/04/2009; End Date: (Active) * Nasacort AQ 55 MCG/ACT Nasal Aerosol Solution; 1 SPRAY EACH NOSTRIL EVERY DAY; Start Date: 04/06/2009 (Active) * Loratadine 10 MG Oral Tablet; take one tablet by mouth every day; Start Date: 07/13/2009; End Date: (Active) * Lyrica 150 MG Oral Capsule; TAKE 1 CAPSULE BY MOUTH THREE TIMES DAILY; Start Date: 09/18/2009 (Active) * Furosemide 80 MG Oral Tablet; take one tablet by mouth every day; Start Date: 02/16/2010; End Date: (Active) * Zetia 10 MG Oral Tablet; take one tablet by mouth every day; Start Date: 03/30/2010; End Date: (Active) * Potassium Chloride Misti ER 10 MEQ Oral Tablet Extended Release; take 4 tablets by mouth twice daily; Start Date: 09/20/2010; End Date: (Active) * Terbinafine HCl 250 MG Oral Tablet; take one tablet by mouth every day; Start Date: 10/04/2010; End Date: (Active) * Ranitidine HCl 300 MG Oral Tablet; Take 1 tablet by mouth TID; Start Date: 01/18/2011; End Date: (Active) * Hydrocodone-Acetaminophen 10-500 MG Oral Tablet; TAKE 1 TABLET BY MOUTH EVERY 4 TO 6 HOURS NEEDED (MAX OF 5 TABLETSPER DAY); Start Date: 01/28/2011 (Active) * Triamcinolone Acetonide 55 MCG/ACT Nasal Inhaler; USE ONE SPRAY IN EACH NOSTRIL EVERY DAY; Start Date: 02/02/2011; End Date: (Active) * Imodium A-D 2 MG Oral Tablet; Start Date: 07/26/2012 (Active) * Omeprazole 20 MG Oral Capsule Delayed Release; 1 tab bid; Start Date: 02/11/2011 (Active) * ALPRAZolam 0.5 MG Oral Tablet; TAKE 1 TABLET BY MOUTH FOUR TIMES DAILY NEEDED; Start Date: 09/30/2011 (Active) * Lisinopril 10 MG Oral Tablet; take 1 tablet by mouth every day; Start Date: 02/11/2011; End Date: (Active) * Chantix Starting Month Babak 0.5 MG X 11 & 1 MG X 42 Oral Tablet; Take as directed; Start Date: 01/10/2012; End Date: (Active) * Gabapentin 300 MG Oral Capsule; 1 bid; Start Date: 06/01/2012; End Date: (Active) * Chantix Continuing Month Babak 1 MG Oral Tablet; Take as directed; Start Date: 01/10/2012; End Date: (Active) * Zolpidem Tartrate 10 MG Oral Tablet; TAKE 1 TABLET BY MOUTH EVERY NIGHT AT BEDTIME NEEDED; Start Date: 07/30/2012 (Active) * Atorvastatin Calcium 80 MG Oral Tablet; TAKE 1 TABLET BY MOUTH EVERY NIGHT AT BEDTIME; Start Date: 04/28/2011; End Date: (Active) * Sulfamethoxazole-TMP DS 800-160 MG Oral Tablet; Take One Tablet By Mouth Twice Daily; Start Date: 07/03/2012; End Date: (Active) * Promethazine-Codeine 6.25-10 MG/5ML Oral Syrup; TAKE 10ML BY MOUTH EVERY 4 HOURS NEEDED FOR COUGH; Start Date: 10/17/2011 (Active) * Benzonatate 200 MG Oral Capsule; 1 po q 4-6 hours prn cough; Start Date: 09/30/2011; End Date: (Active) Allergies and Adverse Reactions * No Known Drug Allergies (Active) * Milk (cow's) (Active) * Eggs (Active) Past Medical History * History of Pancreatitis (577.9); (Resolved) * History of Upr GI Endosc W/ Balloon Dilation Of Esoph (Less Than 30 Mm) - Onset: 10/01/2010; (Resolved) * History of Acute Myocardial Infarction (V12.59); (Resolved) Procedures Procedure Procedure Date Date Completed Status Gastroscopy With Biopsy - - Active Upr GI Endosc W/ Balloon Dilation Of Esoph (Less Than 30 Mm) 01/18/2011 - Active Hip Replacement - - Active Gallbladder Surgery - - Active Tubal Ligation - - Active Heart Surgery - - Active Upr GI Endosc W/ Balloon Dilation Of Esoph (Less Than 30 Mm) 06/25/2012 - Active Immunization * Influenza - Administered on: 01/26/2009 * Pneumo (Prevnar) - Administered on: 03/06/2009 * Influenza A (H1N1) Monoval Vac Intramuscular Suspension - Administered on: 03/14/2009 * Influenza (Lot #: [id number]) - Administered on: 02/18/2010 * Influenza - Administered on: 02/11/2011 * Influenza - Administered on: 06/01/2012 Family History * Family history of Diabetes Mellitus (V18.0); (Active) * Maternal history of Diabetes Mellitus (V18.0); (Active) * Family history of Hypertension (V17.49); (Active) Social History * No History of Alcohol Use (Active) * No History of Drug Use (Active) * Marital History - (Active) * Currently On Disability (Active) * Stopped Drinking Alcohol (Active) * Tobacco Use (305.1); (Active) Vital Signs Date Description Test Result 25 Sep 2012 04:06 PM recorded by: Yoana Acosta Weight 218.8 lb BP Systolic 130 mm[Hg] BP Diastolic 80 mm[Hg] Body Surface Area Calculated 2.1 Body Mass Index Calculated 34.34 Treatment Plan * XC OPTIRAY 320 100ML 12/14/2007 Routine * XC OPTIRAY 320 125ML 04/22/2008 Routine * Vital Signs 05/06/2008 Routine * XC OPTIRAY 320 100ML 05/09/2008 Routine * XO ANKLE COMP (MIN 3V) RT 07/23/2008 Routine * XO ANKLE COMP (MIN 3V) RT 08/06/2008 Routine * XO KNEE (3V) RT 09/08/2008 Routine * XO KNEE (3V) RT 05/11/2009 Routine * XC CT RECON FOR NON CTA EXAMS 05/20/2009 Routine * XO HIP (1V) BILATERAL 07/23/2009 Routine * XC OPTIRAY 320 100ML 01/21/2010 Routine * MISCELLANEOUS REF TEST 9900 01/25/2010 Routine * XC OPTIRAY 320 100ML 02/16/2010 Routine * CP Echo 03/01/2010 Routine * CP Echo 03/02/2011 Routine * XO KNEE COMP (MIN 4V) LT 04/19/2011 Routine * XO FOOT COMP (MIN 3V) RT 05/26/2011 Routine * CP Echo 09/29/2011 Routine * XC OPTIRAY 320 100ML 10/14/2011 Routine Advance Directives * No Advance Directives available. Encounters * Appointment 09/25/2012 * RTNPT , Provider: Sydnee Stephens, Status: Rakesh , Time: 3:15 PM 08/07/2013
--- OUTSIDE RECORDS SUMMARY | 2018-12-14 11:56 | XMS REPORT ---
Author Author DELMI BYRNES [facility] Address [address] [place] [address] Care Team Providers Care Manufacturing Sr Engineer Name Role Phone DELMI BYRNES Unavailable PROBLEMS Type Condition ICD9-CM Code QPU52-SB Code Onset Dates Condition Status SNOMED Code Problem Lumbar radiculopathy M54.16 Active 871602959 Problem Chronic bronchitis, unspecified chronic bronchitis type J42 Active 28835480 Problem Chronic depression F32.9 Active 046024183 Problem Stress incontinence N39.3 Active 17553338 Problem Onychomycosis B35.1 Active 629354514 Problem Intractable cyclical vomiting with nausea G43.A1 Active 77660950 Problem Severe episode of recurrent major depressive disorder, without psychotic features F33.2 Active 57704259 Problem Stage 3 chronic kidney disease N18.3 Active 474508159 Problem Pseudobulbar affect F48.2 Active 65744657 Problem Coronary artery disease involving coquille coronary artery, angina presence unspecified, unspecified whether coquille or transplanted heart I25.10 Active 1937387887222 Problem Barretts esophagus with dysplasia K22.719 Active [id number] Problem Hyperlipidemia, unspecified hyperlipidemia type E78.5 Active 78100568 Problem Anxiety F41.9 Active 23160671 Problem Chronic kidney disease, stage 2 (mild) N18.2 Active 625286890 Problem Arthritis M19.90 Active 5426889 Problem Prediabetes R73.03 Active 324781050 Problem Fibromyalgia M79.7 Active 573724010 Problem Essential hypertension I10 Active 56490112 ALLERGIES No Information ENCOUNTERS Encounter Location Date Diagnosis [facility] [id number], [place] [address] Apr, [facility] [id number], [place] [address] Apr, [facility] [id number] [place] [id number] Apr, [place] [id number] [place] [address] Apr, [place] [address] [address] Mar, Arthritis M19.90 and Anxiety F41.9 [place] [address] [address] Mar, Self-care deficit for bathing and hygiene R46.0 ; Nail hypertrophy L60.2 and Onychomycosis B35.1 [place] [address] [address] Mar, Encounter for immunization Z23 ; Essential hypertension I10 ; Severe episode of recurrent major depressive disorder, without psychotic features F33.2 ; Fibromyalgia M79.7 and Arthritis M19.90 [place] [address] [address] Feb, Arthritis M19.90 and Anxiety F41.9 [place] [id number] [place] [id number] Feb, Anxiety F41.9 [place] [address] [address] Jan, [place] [id number] [place] [address] Jan, [place] [address] [address] Jan, Anxiety F41.9 [place] [id number] [place] [address] Dec, Arthritis M19.90 [place] [id number] [place] [address] Dec, Lumbar radiculopathy M54.16 ; Right ear pain H92.01 and Stress incontinence N39.3 [place] [id number] [place] [id number] Dec, Anxiety F41.9 [place] [address] [address] Nov, Prediabetes R73.03 ; Essential hypertension I10 ; Bilateral impacted cerumen H61.23 ; Severe episode of recurrent major depressive disorder, without psychotic features F33.2 and Lumbar radiculopathy M54.16 [place] [id number] [place] [address] Oct, [place] [id number] [place] [address] Oct, Arthritis M19.90 [place] [id number] [place] [address] Oct, Anxiety F41.9 and Arthritis M19.90 [place] [id number] [place] [address] Oct, Essential hypertension I10 ; Barretts esophagus with dysplasia K22.719 ; Pseudobulbar affect F48.2 ; Arthritis M19.90 ; Onychomycosis B35.1 and Stage 3 chronic kidney disease N18.3 [place] [id number] [place] [address] September, Arthritis M19.90 [place] [id number] [place] [address] September, [place] [id number] [place] [address] Aug, Essential hypertension I10 ; Lumbar radiculopathy M54.16 ; Anxiety F41.9 ; Intractable cyclical vomiting with nausea G43.A1 and Pseudobulbar affect F48.2 [place] [id number] [place] [address] Aug, Arthritis M19.90 [place] [address] [address] 29 Jul, 2017 Intractable cyclical vomiting with nausea G43.A1 and Anxiety F41.9 [facility] [address] [address] Jul, [facility] [address] [address] 09 Jul, 2017 Anxiety F41.9 and Arthritis M19.90 [place] [address] [address] 07 Jul, 2017 Severe episode of recurrent major depressive disorder, without psychotic features F33.2 and Neurocognitive disorder R41.9 [place] [address] [address] 27 Jun, 2017 [place] [address] [address] 20 Jun, 2017 Lumbar radiculopathy M54.16 ; Essential hypertension I10 ; Anxiety F41.9 and Chronic bronchitis, unspecified chronic bronchitis type J42 [place] [address] [address] 15 Jun, 2017 Anxiety F41.9 [place] [id number] [place] [id number] 14 Jun, 2017 [facility] [id number] [place] [address] Jun, Arthritis M19.90 [facility] [id number] [place] [id number] 05 Jun, 2017 [facility] [address] [address] Jun, [facility] [id number] [place] [address] May, [place] [address] [address] May, [place] [id number] [place] [address] 10 May, 2017 HPV (human papilloma virus) infection B97.7 [place] [id number] [place] [address] May, Anxiety F41.9 and Arthritis M19.90 [place] [address] [address] 18 Apr, 2017 [place] [id number] [place] [id number] 15 Apr, 2017 [place] [address] [address] 13 Apr, 2017 Colon cancer screening Z12.11 [place] [id number] [place] [address] 11 Apr, 2017 [place] [id number] [place] [address] Apr, [place] [id number] [place] [address] Apr, Arthritis M19.90 and Anxiety F41.9 [place] [id number] [place] [address] 30 Mar, 2017 Well woman exam Z01.419 and Colon cancer screening Z12.11 [place] [id number] [place] [address] 14 Mar, 2017 [place] [id number] [place] [address] 13 Mar, 2017 Anxiety F41.9 and Arthritis M19.90 [address] [id number] [place] [id number] 19 Feb, 2017 Encounter for immunization Z23 ; Essential hypertension I10 ; Lumbar radiculopathy M54.16 ; Chronic depression F32.9 ; Routine adult health maintenance Z00.00 and Chronic bronchitis, unspecified chronic bronchitis type J42 [address] [id number] [place] [address] Feb, Arthritis M19.90 and Anxiety F41.9 [place] [id number] [place] [address] Jan, Arthritis M19.90 and Anxiety F41.9 [place] [address] [address] Dec, Arthritis M19.90 and Anxiety F41.9 [place] [address] [address] Dec, Lumbar radiculopathy M54.16 and Chronic depression F32.9 [place] [id number] [place] [address] Dec, [place] [address] [address] Dec, Foot drop, right foot M21.371 ; Coronary artery disease involving coquille coronary artery, angina presence unspecified, unspecified whether coquille or transplanted heart I25.10 and Depressive disorder, not elsewhere classified F32.9 [place] [id number] [place] [address] Nov, Arthritis M19.90 [place] [id number] [place] [address] Nov, [place] [id number] [place] [address] Oct, [place] [id number] [place] [address] Oct, Essential hypertension I10 ; Anxiety F41.9 ; Arthritis M19.90 and Fibromyalgia M79.7 [place] [id number] [place] [address] September, Anxiety F41.9 [place] [address] [address] September, Arthritis M19.90 [place] [id number] [place] [address] Aug, Dental examination Z01.20 [place] [id number] [place] [address] Aug, Anxiety F41.9 [place] [id number] [place] [address] Aug, [place] [id number] [place] [address] Aug, Anxiety F41.9 [place] [address] [address] Aug, Essential hypertension I10 and Arthritis M19.90 [place] [id number] [place] [address] Aug, Depressive disorder, not elsewhere classified F32.9 [place] [id number] [place] [address] Jul, Abrasion, unspecified lesser toe(s), sequela S90.416S and Local infection of the skin and subcutaneous tissue, unspecified L08.9 [place] [id number] [place] [address] Jul, Prediabetes R73.03 and Essential hypertension I10 [place] [id number] [place] [address] Jul, Abnormal glucose level R73.09 [facility] [id number] [id number] Jul, [place] [id number] [place] [address] Jul, Abnormal glucose level R73.09 [place] [id number] [place] [address] Jul, Fibromyalgia M79.7 ; Arthritis M19.90 ; Chronic kidney disease, stage 2 (mild) N18.2 and Depressive disorder, not elsewhere classified F32.9 [facility] [id number] [place] [address] Jul, [facility] [id number] [place] [address] Jul, [facility] [id number] [place] [address] Jul, [facility] [id number] [place] [address] Jul, Arthritis M19.90 ; Depressive disorder, not elsewhere classified F32.9 ; Fibromyalgia M79.7 and Constipation, unspecified constipation type K59.00 [place] [id number] [place] [address] 15 Jun, 2016 Anxiety F41.9 [place] [id number] [place] [address] 14 Jun, 2016 Anxiety F41.9 and Fibromyalgia M79.7 [place] [id number] [place] [address] Jun, [facility] [id number] [place] [address] 10 Jun, 2016 Arthritis M19.90 ; Depressive disorder, not elsewhere classified F32.9 ; Barretts esophagus with dysplasia K22.719 ; Edema, unspecified type R60.9 and Fibromyalgia M79.7 [facility] [id number] [place] [address] Jun, [facility] [id number] [place] [address] May, [place] [id number] [place] [address] May, Dyspnea on exertion R06.09 ; Coronary artery disease involving coquille coronary artery, angina presence unspecified, unspecified whether coquille or transplanted heart I25.10 and Arthritis M19.90 [facility] [address], [place] [address] May, [facility] [id number] [place] [address] Apr, Arthritis M19.90 [facility] [id number] [place] [address] Apr, Arthritis M19.90 and Acute cystitis without hematuria N30.00 [facility] [address] [place] [address] Apr, [facility] [id number] [place] [address] Apr, Fibromyalgia M79.7 [facility] [id number] [place] [address] Apr, Arthritis M19.90 and Onychomycosis B35.1 [facility] [id number] [place] [address] Mar, [facility] [id number] [place] [address] Mar, Acute gout involving toe of right foot, unspecified cause M10.9 [facility] [id number] [place] [address] Mar, [facility] [id number] [place] [id number] Feb, [facility] [id number] [place] [address] Feb, [facility] [id number] [place] [address] Feb, Arthritis M19.90 [facility] [id number] [place] [address] Jan, [facility] [id number] [place] [address] Jan, [facility] [id number] [place] [address] Jan, [facility] [id number] [place] [address] Jan, [facility] [id number] [place] [address] Jan, Coronary artery disease involving coquille coronary artery, angina presence unspecified, unspecified whether coquille or transplanted heart I25.10 ; Arthritis M19.90 and Edema, unspecified type R60.9 [facility] [id number] [place] [address] Jan, [facility] [id number] [place] [address] Jan, [facility] [id number] [place] [address] Jan, Anxiety F41.9 and Depressive disorder, not elsewhere classified F32.9 [facility] [id number] [place] [address] Dec, Dementia without behavioral disturbance, unspecified dementia type F03.90 and Reactive depression F32.9 [facility] [id number] [place] [address] Dec, [facility] [id number] [place] [id number] Dec, [facility] [id number] [place] [address] Nov, Depressive disorder, not elsewhere classified F32.9 and Anxiety F41.9 [facility] [id number] [place] [address] Nov, Coronary artery disease involving coquille coronary artery, angina presence unspecified, unspecified whether coquille or transplanted heart I25.10 ; Fibromyalgia M79.7 ; Arthritis M19.90 ; Anxiety F41.9 ; Hyperlipidemia, unspecified hyperlipidemia type E78.5 and Barretts esophagus with dysplasia K22.719 [facility] [address] [facility] [id number] [address] Nov, IMMUNIZATIONS No Known Immunizations SOCIAL HISTORY Never Assessed REASON FOR VISIT paperwork PLAN OF CARE VITAL SIGNS MEDICATIONS Unknown [...]
--- OUTSIDE RECORDS SUMMARY | 2018-12-14 11:56 | XMS REPORT ---
Author Author DELMI BYRNES Organization [facility] Address [address] [place] [address] Care Team Providers Care Policeman Name Role Phone DELMI BYRNES Unavailable PROBLEMS Type Condition ICD9-CM Code ESQ68-WM Code Onset Dates Condition Status SNOMED Code Problem Severe episode of recurrent major depressive disorder, without psychotic features F33.2 Active 60148703 Problem Pseudobulbar affect F48.2 Active 89051985 Problem Intractable cyclical vomiting with nausea G43.A1 Active 66245241 Problem Dementia without behavioral disturbance, unspecified dementia type F03.90 Active 62538589 Problem Coronary artery disease involving [place] coronary artery, angina presence unspecified, unspecified whether [place] or transplanted heart I25.10 Active 3131825080142 Problem Severe episode of recurrent major depressive disorder, with psychotic features F33.3 Active 18016421 Problem Hyperlipidemia, unspecified hyperlipidemia type E78.5 Active 83928238 Problem Onychomycosis B35.1 Active 332332976 Problem Stage 3 chronic kidney disease N18.3 Active 611432108 Problem Obsessive-compulsive disorder, unspecified type F42.9 Active 499056648 Problem Stress incontinence N39.3 Active 03036855 Problem Fibromyalgia M79.7 Active 766405055 Problem Anxiety F41.9 Active 10556239 Problem Barretts esophagus with dysplasia K22.719 Active 2292731522465725 Problem Arthritis M19.90 Active 6302200 Problem Essential hypertension I10 Active 46583625 Problem Lumbar radiculopathy M54.16 Active 554703395 Problem Chronic kidney disease, stage 2 (mild) N18.2 Active 944238825 Problem Chronic depression F32.9 Active 294333408 Problem Prediabetes R73.03 Active 023500889 Problem Chronic bronchitis, unspecified chronic bronchitis type J42 Active 83231340 ALLERGIES Substance Reaction Event Type Date Status Milk Unknown Non Drug Allergy Apr, Active Eggs Unknown Non Drug Allergy Apr, Active ENCOUNTERS Encounter Location Date Diagnosis [place] [id number] [place] [address] May, [place] [address] [address] Apr, [place] [address] [place] [id number] [place] [address] Apr, Palpitations R00.2 [place] [address] [address] Apr, Severe episode of recurrent major depressive disorder, with psychotic features F33.3 ; Dementia without behavioral disturbance, unspecified dementia type F03.90 and Obsessive-compulsive disorder, unspecified type F42.9 [place] [address] [place] [id number] [place] [address] Apr, [place] [address] [address] Apr, [place] [address] [address] Mar, Arthritis M19.90 and Anxiety F41.9 [place] [address] [place] [id number] [place] [address] Mar, Self-care deficit for bathing and hygiene R46.0 ; Nail hypertrophy L60.2 and Onychomycosis B35.1 [place] [address] [place] [id number] [place] [address] 05 Mar, 2018 Encounter for immunization Z23 ; Essential hypertension I10 ; Severe episode of recurrent major depressive disorder, without psychotic features F33.2 ; Fibromyalgia M79.7 and Arthritis M19.90 [place] [address] [address] Feb, Arthritis M19.90 and Anxiety F41.9 [place] [address] [place] [id number] [place] [address] Feb, Anxiety F41.9 [place] [address] [place] [id number] [place] [address] 11 Jan, 2018 [place] [address] [address] Jan, [place] [address] [place] [id number] [place] [address] 05 Jan, 2018 Anxiety F41.9 [place] [address] [address] Dec, Arthritis M19.90 [place] [address] [place] [id number] [place] [address] Dec, Lumbar radiculopathy M54.16 ; Right ear pain H92.01 and Stress incontinence N39.3 [place] [address] [place] [id number] [place] [address] Dec, Anxiety F41.9 [place] [address] [place] [id number] [place] [address] Nov, Prediabetes R73.03 ; Essential hypertension I10 ; Bilateral impacted cerumen H61.23 ; Severe episode of recurrent major depressive disorder, without psychotic features F33.2 and Lumbar radiculopathy M54.16 [place] [address] [place] [id number] [place] [address] Oct, [place] [address] [place] [id number] [place] [address] Oct, Arthritis M19.90 [place] [address] [place] [id number] [place] [address] 12 Oct, 2017 Anxiety F41.9 and Arthritis M19.90 [place] [address] [place] [id number] [place] [address] Oct, Essential hypertension I10 ; Barretts esophagus with dysplasia K22.719 ; Pseudobulbar affect F48.2 ; Arthritis M19.90 ; Onychomycosis B35.1 and Stage 3 chronic kidney disease N18.3 [facility] [address] [place] [id number] [place] [address] September, Arthritis M19.90 [facility] [address] [place] [id number] [place] [address] September, [facility] [address] [place] [id number] [place] [address] Aug, Essential hypertension I10 ; Lumbar radiculopathy M54.16 ; Anxiety F41.9 ; Intractable cyclical vomiting with nausea G43.A1 and Pseudobulbar affect F48.2 [place] [address] [place] [id number] [place] [address] Aug, Arthritis M19.90 [place] [address] [place] [id number] [place] [address] Jul, Intractable cyclical vomiting with nausea G43.A1 and Anxiety F41.9 [place] [address] [place] [id number] [place] [address] Jul, [place] [address] [place] [id number] [place] [address] Jul, Anxiety F41.9 and Arthritis M19.90 [place] [address] [place] [id number] [place] [address] Jul, Severe episode of recurrent major depressive disorder, without psychotic features F33.2 and Neurocognitive disorder R41.9 [place] [address] [place] [id number] [place] [address] Jun, [place] [address] [place] [id number] [place] [address] Jun, Lumbar radiculopathy M54.16 ; Essential hypertension I10 ; Anxiety F41.9 and Chronic bronchitis, unspecified chronic bronchitis type J42 [place] [address] [place] [id number] [place] [address] Jun, Anxiety F41.9 [place] [address] [address] 14 Jun, 2017 [facility] [address] [place] [id number] [place] [address] 12 Jun, 2017 Arthritis M19.90 [facility] [address] [place] [address] 05 Jun, 2017 [facility] [address] [place] [id number] [place] [address] 05 Jun, 2017 [facility] [address] [place] [address] May, [facility] [address] [place] [id number] [place] [address] May, [facility] [address] [place] [id number] [place] [address] May, HPV (human papilloma virus) infection B97.7 [facility] [address] [place] [id number] [place] [address] May, Anxiety F41.9 and Arthritis M19.90 [facility] [address] [place] [address] Apr, [facility] [address] [place] [address] Apr, [facility] [address] [place] [address] 13 Apr, 2017 Colon cancer screening Z12.11 [facility] [address] [place] [address] Apr, [facility] [address] [place] [id number] [place] [address] Apr, [facility] [address] [place] [address] 07 Apr, 2017 Arthritis M19.90 and Anxiety F41.9 [facility] [address] [place] [id number] [place] [address] 30 Mar, 2017 Well woman exam Z01.419 and Colon cancer screening Z12.11 [place] [address] [address] 14 Mar, 2017 [place] [address] [address] 13 Mar, 2017 Anxiety F41.9 and Arthritis M19.90 [place] [address] [address] 19 Feb, 2017 Encounter for immunization Z23 ; Essential hypertension I10 ; Lumbar radiculopathy M54.16 ; Chronic depression F32.9 ; Routine adult health maintenance Z00.00 and Chronic bronchitis, unspecified chronic bronchitis type J42 [address] [address] 16 Feb, 2017 Arthritis M19.90 and Anxiety F41.9 [place] [address] [address] 18 Jan, 2017 Arthritis M19.90 and Anxiety F41.9 [place] [address] [address] 18 Dec, 2016 Arthritis M19.90 and Anxiety F41.9 [place] [address] [place] [id number] [place] [address] Dec, Lumbar radiculopathy M54.16 and Chronic depression F32.9 [place] [address] [place] [id number] [place] [address] Dec, [place] [address] [address] Dec, Foot drop, right foot M21.371 ; Coronary artery disease involving [place] coronary artery, angina presence unspecified, unspecified whether [place] or transplanted heart I25.10 and Depressive disorder, not elsewhere classified F32.9 [place] [address] [address] Nov, Arthritis M19.90 [facility] [address] [place] [id number] [place] [address] Nov, [facility] [address] [place] [id number] [place] [address] Oct, [facility] [address] [place] [id number] [place] [address] Oct, Essential hypertension I10 ; Anxiety F41.9 ; Arthritis M19.90 and Fibromyalgia M79.7 [facility] [address] [place] [id number] [place] [address] September, Anxiety F41.9 [facility] [address] [place] [id number] [place] [address] September, Arthritis M19.90 [facility] [address] [place] [id number] [place] [address] Aug, Dental examination Z01.20 [facility] [address] [place] [id number] [place] [address] Aug, Anxiety F41.9 [facility] [address] [place] [id number] [place] [address] Aug, [facility] [address] [place] [id number] [place] [address] Aug, Anxiety F41.9 [facility] [address] [place] [id number] [place] [address] Aug, Essential hypertension I10 and Arthritis M19.90 [facility] [address] [place] [id number] [place] [address] Aug, Depressive disorder, not elsewhere classified F32.9 [facility] [address] [place] [id number] [place] [address] Jul, Abrasion, unspecified lesser toe(s), sequela S90.416S and Local infection of the skin and subcutaneous tissue, unspecified L08.9 [facility] [address] [address] Jul, Prediabetes R73.03 and Essential hypertension I10 [facility] [address] [place] [id number] [place] [address] Jul, Abnormal glucose level R73.09 [facility] [id number] [id number] Jul, [facility] [address] [place] [id number] [place] [address] Jul, Abnormal glucose level R73.09 [facility] [address] [place] [id number] [place] [address] 16 Jul, 2016 Fibromyalgia M79.7 ; Arthritis M19.90 ; Chronic kidney disease, stage 2 (mild) N18.2 and Depressive disorder, not elsewhere classified F32.9 [place] [address] [place] [id number] [place] [address] Jul, [facility] [address] [place] [id number] [place] [address] Jul, [facility] [address] [place] [id number] [place] [address] Jul, [facility] [address] [place] [id number] [place] [address] Jul, Arthritis M19.90 ; Depressive disorder, not elsewhere classified F32.9 ; Fibromyalgia M79.7 and Constipation, unspecified constipation type K59.00 [facility] [address] [place] [address] 15 Jun, 2016 Anxiety F41.9 [facility] [address] [place] [id number] [place] [address] 14 Jun, 2016 Anxiety F41.9 and Fibromyalgia M79.7 [facility] [address] [place] [address] Jun, [place] [id number] [address] 10 Jun, 2016 Arthritis M19.90 ; Depressive disorder, not elsewhere classified F32.9 ; Barretts esophagus with dysplasia K22.719 ; Edema, unspecified type R60.9 and Fibromyalgia M79.7 [place] [address] [place] [id number] [place] [address] 06 Jun, 2016 [place] [address] [place] [id number] [place] [address] May, [place] [address] [place] [id number] [place] [address] May, Dyspnea on exertion R06.09 ; Coronary artery disease involving [place] coronary artery, angina presence unspecified, unspecified whether [place] or transplanted heart I25.10 and Arthritis M19.90 [place] [address] [place] [id number] [place] [address] May, [place] [address] [place] [id number] [place] [address] Apr, Arthritis M19.90 [place] [address] [place] [id number] [place] [address] Apr, Arthritis M19.90 and Acute cystitis without hematuria N30.00 [facility] [address] [place] [address] Apr, [place] [address] [place] [id number] [place] [address] Apr, Fibromyalgia M79.7 [place] [address] [place] [address] Apr, Arthritis M19.90 and Onychomycosis B35.1 [place] [address] [place] [address] Mar, [place] [address] [place] [id number] [place] [address] Mar, Acute gout involving toe of right foot, unspecified cause M10.9 [facility] [address] [address] Mar, [facility] [address] [address] Feb, [facility] [address] [place] [id number] [place] [address] Feb, [facility] [address] [place] [id number] [place] [address] Feb, Arthritis M19.90 [facility] [address] [place] [id number] [place] [address] Jan, [facility] [address] [place] [id number] [place] [address] Jan, [facility] [address] [place] [id number] [place] [address] Jan, [facility] [address] [place] [id number] [place] [address] Jan, [facility] [address] [place] [id number] [place] [address] Jan, Coronary artery disease involving [place] coronary artery, angina presence unspecified, unspecified whether [place] or transplanted heart I25.10 ; Arthritis M19.90 and Edema, unspecified type R60.9 [facility] [address] [address] 07 Jan, 2016 [facility] [address] [address] 06 Jan, 2016 [facility] [address] [place] [id number] [place] [address] Jan, Anxiety F41.9 and Depressive disorder, not elsewhere classified F32.9 [facility] [address] [address] Dec, Dementia without behavioral disturbance, unspecified dementia type F03.90 and Reactive depression F32.9 [place] [address] [place] [id number] [address] Dec, [place] [address] [place] [address] Dec, [place] [address] [place] [address] Nov, Depressive disorder, not elsewhere classified F32.9 and Anxiety F41.9 [place] [address] [place] [address] Nov, Coronary artery disease involving [place] coronary artery, angina presence unspecified, unspecified whether [place] or transplanted heart I25.10 ; Fibromyalgia M79.7 ; Arthritis M19.90 ; Anxiety F41.9 ; Hyperlipidemia, unspecified hyperlipidemia type E78.5 and Barretts esophagus with dysplasia K22.719 [address] [place] [address] Nov, IMMUNIZATIONS No Known Immunizations SOCIAL HISTORY Never Assessed REASON FOR VISIT f/u - flutter type feelings in heart and right arm x 6months KPala Sparrow , blood i n urine - x1week - no burning or pain Brenda sparrow , pt says she can not urine to give sample Brenda sparrow , feels anxiety and nervousness - getting worse over the last couple weeks Brenda sparrow , cries all the time - brenda sparrow PLAN OF CARE Activity Details Follow Up 3 Months Reason: VITAL SIGNS Height 67 in 2018-04-30 Weight 204.5 lbs 2018-04-30 Temperature 97.8 degrees Fahrenheit 2018-04-30 Heart Rate 79 bpm 2018-04-30 Respiratory Rate 20 2018-04-30 BMI 32.03 kg/m2 2018-04-30 Blood pressure systolic 116 mmHg 2018-04-30 Blood pressure diastolic 78 mmHg 2018-04-30 MEDICATIONS Medication Instructions Dosage Frequency Start Date End Date Duration Status Aspirin 325 MG Orally Once a day 1 tablet 24h 30 Active Premarin 30GM Vaginal Insert 1 Gram every night at bedtime twice a week Active Multivitamin Adult - Orally Once a day 1 tablet 24h 30 Active Metoprolol Tartrate 50 mg Orally Twice a day 1 tablet with food 12h 30 Active Incontinence Brief Large - as directed Dec, Active Cetirizine HCl 10 TAKE 1 TABLET BY MOUTH DAILY 30 Active ProAir HFA 108 (90 Base) MCG/ACT Inhalation every 6 hrs 2 puffs as needed 6h 25 Active Adjust Bath/Shower Seat/Back - use in shower Jun, Active Folic Acid 1 MG Orally twice a day 1 tablet 12h Active Metoprolol Tartrate 50 Orally Twice a day 1 tablet with food 12h 30 Not-Taking Cholecalciferol 1000 UNIT Orally Once a day 2 capsules 24h 30 days Active Vitamin D3 1000 TAKE 2 CAPSULES BY MOUTH DAILY 30 Not-Taking Exelon 4.6 MG/24HR Transdermal Once a day 1 patch to skin 24h Active Ranitidine HCl 150 MG Orally twice a day 1 tablet at bedtime 12h Active Oxycodone HCl 5 mg Orally every 6 hrs, prn pain 1 tablet Mar, 28 days Active Lisinopril 40 MG Orally Once a day 1 tablet 24h Active Lisinopril 40 TAKE 1 TABLET BY MOUTH DAILY 30 Not-Taking Toviaz 4 MG Orally Once a day 1 tablet 24h Active Reglan 10 MG Orally qid, ac and hs as directed Active Alprazolam 1 MG Orally Twice a day 1 tablet 12h Active Colace 100 mg Orally Once a day 1 capsule as needed 24h 30 Active Atorvastatin Calcium 80 MG Orally at bedtime 1 tablet Active Pantoprazole Sodium 40 mg Orally Once a day 1 tablet 24h Active Atorvastatin Calcium 40 TAKE 1 TABLET BY MOUTH AT BEDTIME 30 Not-Taking RESULTS No Results PROCEDURES Procedure Date Ordered Result Body Site EKG, TRACING (IN-HOUSE) 2018-04-30 N/A ELECTROCARDIOGRAM, TRACING Apr 30, 2018 INSTRUCTIONS MEDICATIONS ADMINISTERED No Known Medications MEDICAL [...]
--- OUTSIDE RECORDS SUMMARY | 2018-12-14 11:57 | XMS REPORT ---
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 Name Role Phone DELMI BYRNES Unavailable PROBLEMS Type Condition ICD9-CM Code OSF34-XY Code Onset Dates Condition Status SNOMED Code Problem Lumbar radiculopathy M54.16 Active 436744700 Problem Chronic bronchitis, unspecified chronic bronchitis type J42 Active 28570763 Problem Chronic depression F32.9 Active 477778374 Problem Stress incontinence N39.3 Active 16798956 Problem Onychomycosis B35.1 Active 730988864 Problem Intractable cyclical vomiting with nausea G43.A1 Active 75214133 Problem Severe episode of recurrent major depressive disorder, without psychotic features F33.2 Active 09462198 Problem Stage 3 chronic kidney disease N18.3 Active 805599055 Problem Pseudobulbar affect F48.2 Active 92022357 Problem Coronary artery disease involving la posta coronary artery, angina presence unspecified, unspecified whether la posta or transplanted heart I25.10 Active 6057083526259 Problem Barretts esophagus with dysplasia K22.719 Active 4468137540082110 Problem Hyperlipidemia, unspecified hyperlipidemia type E78.5 Active 14658771 Problem Anxiety F41.9 Active 78804092 Problem Chronic kidney disease, stage 2 (mild) N18.2 Active 963483499 Problem Arthritis M19.90 Active 9654652 Problem Prediabetes R73.03 Active 907352291 Problem Fibromyalgia M79.7 Active 449191888 Problem Essential hypertension I10 Active 39450357 ALLERGIES No Information ENCOUNTERS Encounter Location Date Diagnosis [facility] [id number] [address] Apr, [facility] [id number], [place] [address] Apr, [facility] [id number] [place] [address] Mar, Arthritis M19.90 and Anxiety F41.9 [place] [address] [address] Mar, Self-care deficit for bathing and hygiene R46.0 ; Nail hypertrophy L60.2 and Onychomycosis B35.1 [place] [address] [address] Mar, Encounter for immunization Z23 ; Essential hypertension I10 ; Severe episode of recurrent major depressive disorder, without psychotic features F33.2 ; Fibromyalgia M79.7 and Arthritis M19.90 [place] [address] [address] Feb, Arthritis M19.90 and Anxiety F41.9 [place] [address] [address] Feb, Anxiety F41.9 [place] [address] [address] Jan, [place] [address] [address] Jan, [place] [address] [address] Jan, Anxiety F41.9 [place] [address] [address] Dec, Arthritis M19.90 [place] [address] [address] Dec, Lumbar radiculopathy M54.16 ; Right ear pain H92.01 and Stress incontinence N39.3 [place] [address] [address] Dec, Anxiety F41.9 [place] [address] [address] Nov, Prediabetes R73.03 ; Essential hypertension I10 ; Bilateral impacted cerumen H61.23 ; Severe episode of recurrent major depressive disorder, without psychotic features F33.2 and Lumbar radiculopathy M54.16 [place] [id number] [place] [address] Oct, [place] [id number] [place] [address] Oct, Arthritis M19.90 [place] [address] [address] Oct, Anxiety F41.9 and Arthritis M19.90 [place] [address] [address] Oct, Essential hypertension I10 ; Barretts esophagus with dysplasia K22.719 ; Pseudobulbar affect F48.2 ; Arthritis M19.90 ; Onychomycosis B35.1 and Stage 3 chronic kidney disease N18.3 [place] [id number] [place] [address] September, Arthritis M19.90 [place] [address] [address] September, [place] [id number] [place] [address] Aug, Essential hypertension I10 ; Lumbar radiculopathy M54.16 ; Anxiety F41.9 ; Intractable cyclical vomiting with nausea G43.A1 and Pseudobulbar affect F48.2 [place] [id number] [place] [address] Aug, Arthritis M19.90 [place] [address] [address] Jul, Intractable cyclical vomiting with nausea G43.A1 and Anxiety F41.9 [place] [address] [address] Jul, [facility] [id number] [place] [address] 09 Jul, 2017 Anxiety F41.9 and Arthritis M19.90 [place] [id number] [place] [address] Jul, Severe episode of recurrent major depressive disorder, without psychotic features F33.2 and Neurocognitive disorder R41.9 [place] [address] [address] 27 Jun, 2017 [place] [id number] [place] [address] 20 Jun, 2017 Lumbar radiculopathy M54.16 ; Essential hypertension I10 ; Anxiety F41.9 and Chronic bronchitis, unspecified chronic bronchitis type J42 [place] [id number] [place] [address] 15 Jun, 2017 Anxiety F41.9 [place] [id number] [place] [address] 14 Jun, 2017 [place] [id number] [place] [address] 12 Jun, 2017 Arthritis M19.90 [place] [id number] [place] [address] Jun, [place] [id number] [place] [address] Jun, [place] [id number] [place] [address] May, [place] [address] [address] May, [place] [id number] [place] [address] May, HPV (human papilloma virus) infection B97.7 [place] [address] [address] May, Anxiety F41.9 and Arthritis M19.90 [place] [id number] [place] [address] 18 Apr, 2017 [facility] [id number] [place] [address] 15 Apr, 2017 [place] [id number] [place] [address] 13 Apr, 2017 Colon cancer screening Z12.11 [place] [id number] [place] [address] Apr, [place] [id number] [place] [address] Apr, [place] [id number] [place] [address] Apr, Arthritis M19.90 and Anxiety F41.9 [place] [id number] [place] [address] 30 Mar, 2017 Well woman exam Z01.419 and Colon cancer screening Z12.11 [place] [id number] [place] [address] 14 Mar, 2017 [place] [id number] [place] [address] 13 Mar, 2017 Anxiety F41.9 and Arthritis M19.90 [place] [id number] [place] [address] Feb, Encounter for immunization Z23 ; Essential hypertension I10 ; Lumbar radiculopathy M54.16 ; Chronic depression F32.9 ; Routine adult health maintenance Z00.00 and Chronic bronchitis, unspecified chronic bronchitis type J42 [place] [id number] [place] [address] Feb, Arthritis M19.90 and Anxiety F41.9 [place] [id number] [place] [address] Jan, Arthritis M19.90 and Anxiety F41.9 [facility] [id number] [place] [address] Dec, Arthritis M19.90 and Anxiety F41.9 [facility] [id number] [place] [address] Dec, Lumbar radiculopathy M54.16 and Chronic depression F32.9 [facility] [id number] [place] [address] Dec, [place] [id number] [place] [address] Dec, Foot drop, right foot M21.371 ; Coronary artery disease involving la posta coronary artery, angina presence unspecified, unspecified whether la posta or transplanted heart I25.10 and Depressive disorder, not elsewhere classified F32.9 [place] [id number] [place] [address] Nov, Arthritis M19.90 [facility] [id number] [place] [address] Nov, [place] [id number] [place] [address] Oct, [place] [id number] [place] [address] Oct, Essential hypertension I10 ; Anxiety F41.9 ; Arthritis M19.90 and Fibromyalgia M79.7 [facility] [id number] [place] [address] September, Anxiety F41.9 [facility] [id number] [place] [address] September, Arthritis M19.90 [facility] [id number] [place] [address] Aug, Dental examination Z01.20 [place] [id number] [address] 27 Aug, 2016 Anxiety F41.9 [place] [id number] [place] [address] Aug, [place] [id number] [place] [address] 18 Aug, 2016 Anxiety F41.9 [place] [id number] [place] [address] 13 Aug, 2016 Essential hypertension I10 and Arthritis M19.90 [place] [id number] [place] [address] Aug, Depressive disorder, not elsewhere classified F32.9 [place] [id number] [place] [address] 29 Jul, 2016 Abrasion, unspecified lesser toe(s), sequela S90.416S and Local infection of the skin and subcutaneous tissue, unspecified L08.9 [place] [address], [place] [address] Jul, Prediabetes R73.03 and Essential hypertension I10 [place] [id number] [place] [address] Jul, Abnormal glucose level R73.09 [facility] [id number] [id number] Jul, [place] [id number] [place] [address] 17 Jul, 2016 Abnormal glucose level R73.09 [place] [id number] [place] [address] 16 Jul, 2016 Fibromyalgia M79.7 ; Arthritis M19.90 ; Chronic kidney disease, stage 2 (mild) N18.2 and Depressive disorder, not elsewhere classified F32.9 [address] [id number] [place] [address] 14 Jul, 2016 [place] [address], [place] [address] Jul, [facility] [id number] [place] [address] Jul, [facility] [id number] [place] [address] Jul, Arthritis M19.90 ; Depressive disorder, not elsewhere classified F32.9 ; Fibromyalgia M79.7 and Constipation, unspecified constipation type K59.00 [facility] [id number] [place] [address] 15 Jun, 2016 Anxiety F41.9 [place] [id number] [place] [address] 14 Jun, 2016 Anxiety F41.9 and Fibromyalgia M79.7 [place] [id number] [place] [address] 11 Jun, 2016 [facility] [id number] [place] [address] Jun, Arthritis M19.90 ; Depressive disorder, not elsewhere classified F32.9 ; Barretts esophagus with dysplasia K22.719 ; Edema, unspecified type R60.9 and Fibromyalgia M79.7 [facility] [id number] [place] [address] Jun, [facility] [id number] [place] [address] May, [place] [id number] [place] [address] May, Dyspnea on exertion R06.09 ; Coronary artery disease involving la posta coronary artery, angina presence unspecified, unspecified whether la posta or transplanted heart I25.10 and Arthritis M19.90 [facility] [id number] [place] [address] May, [facility] [id number] [place] [address] Apr, Arthritis M19.90 [facility] [id number] [place] [address] Apr, Arthritis M19.90 and Acute cystitis without hematuria N30.00 [facility] [address] [place] [address] Apr, [facility] [id number] [place] [address] Apr, Fibromyalgia M79.7 [facility] [id number] [place] [address] Apr, Arthritis M19.90 and Onychomycosis B35.1 [facility] [id number] [place] [address] Mar, [facility] [id number] [place] [address] Mar, Acute gout involving toe of right foot, unspecified cause M10.9 [facility] [id number] [place] [address] Mar, [facility] [id number] [place] [address] Feb, [facility] [id number] [place] [address] Feb, [facility] [id number] [place] [address] Feb, Arthritis M19.90 [facility] [address] [address] Jan, [facility] [id number] [place] [address] 19 Jan, 2016 [facility] [address] [address] 16 Jan, 2016 [facility] [id number] [place] [address] 16 Jan, 2016 [facility] [id number] [place] [address] Jan, Coronary artery disease involving la posta coronary artery, angina presence unspecified, unspecified whether la posta or transplanted heart I25.10 ; Arthritis M19.90 and Edema, unspecified type R60.9 [facility] [id number] [place] [address] Jan, [facility] [id number] [place] [address] Jan, [place] [id number] [place] [address] Jan, Anxiety F41.9 and Depressive disorder, not elsewhere classified F32.9 [place] [id number] [place] [address] Dec, Dementia without behavioral disturbance, unspecified dementia type F03.90 and Reactive depression F32.9 [place] [id number] [place] [address] Dec, [place] [id number] [place] [address] Dec, [place] [id number] [place] [address] Nov, Depressive disorder, not elsewhere classified F32.9 and Anxiety F41.9 [place] [id number] [place] [address] Nov, Coronary artery disease involving la posta coronary artery, angina presence unspecified, unspecified whether la posta or transplanted heart I25.10 ; Fibromyalgia M79.7 ; Arthritis M19.90 ; Anxiety F41.9 ; Hyperlipidemia, unspecified hyperlipidemia type E78.5 and Barretts esophagus with dysplasia K22.719 [facility] [address] [address] Nov, IMMUNIZATIONS No Known Immunizations SOCIAL HISTORY Never Assessed REASON FOR VISIT Controlled Med Refill 04/12 PLAN OF CARE VITAL SIGNS MEDICATIONS Medication Instructions Dosage Frequency Start Date End Date Duration Status Alprazolam 1 MG Orally Twice a day 1 tablet 12h 28 days Active Oxycodone HCl 5 mg Orally every 6 hrs, prn pain 1 tablet Mar, 28 days Active RESULTS No Results PROCEDURES [...]
--- OUTSIDE RECORDS SUMMARY | 2018-12-14 11:57 | XMS REPORT ---
Author Author DELMI BYRNES Organization [facility] Address [address] [place] [address] Care Team Providers Care Traveling Accountant Name Role Phone DELMI BYRNES Unavailable PROBLEMS Type Condition ICD9-CM Code PLG39-PJ Code Onset Dates Condition Status SNOMED Code Problem Lumbar radiculopathy M54.16 Active 055915123 Problem Chronic bronchitis, unspecified chronic bronchitis type J42 Active 00696422 Problem Chronic depression F32.9 Active 653315872 Problem Stress incontinence N39.3 Active 35337211 Problem Onychomycosis B35.1 Active 215408555 Problem Intractable cyclical vomiting with nausea G43.A1 Active 46382877 Problem Severe episode of recurrent major depressive disorder, without psychotic features F33.2 Active 10406805 Problem Stage 3 chronic kidney disease N18.3 Active 657655247 Problem Pseudobulbar affect F48.2 Active 28408843 Problem Coronary artery disease involving hamilton coronary artery, angina presence unspecified, unspecified whether hamilton or transplanted heart I25.10 Active 4458514697605 Problem Barretts esophagus with dysplasia K22.719 Active 0225440834506576 Problem Hyperlipidemia, unspecified hyperlipidemia type E78.5 Active 81672850 Problem Anxiety F41.9 Active 57463200 Problem Chronic kidney disease, stage 2 (mild) N18.2 Active 843846050 Problem Arthritis M19.90 Active 7270590 Problem Prediabetes R73.03 Active 702483096 Problem Fibromyalgia M79.7 Active 856853453 Problem Essential hypertension I10 Active 58993994 ALLERGIES Substance Reaction Event Type Date Status Milk Unknown Non Drug Allergy Mar, Active Eggs Unknown Non Drug Allergy Mar, Active ENCOUNTERS Encounter Location Date Diagnosis [facility] [address] [facility] [id number] [address] Apr, [facility] [address] [facility] [id number] [address] Apr, [place] [address] [place] [id number] [place] [address] Mar, [place] [address] [address] Mar, Encounter for immunization Z23 ; Essential hypertension I10 ; Severe episode of recurrent major depressive disorder, without psychotic features F33.2 ; Fibromyalgia M79.7 and Arthritis M19.90 [place] [address] [address] Feb, Arthritis M19.90 and Anxiety F41.9 [place] [address] [address] Feb, Anxiety F41.9 [place] [address] [address] Jan, [place] [address] [address] Jan, [place] [address] [address] Jan, Anxiety F41.9 [place] [address] [address] Dec, Arthritis M19.90 [place] [address] [place] [id number] [place] [address] Dec, Lumbar radiculopathy M54.16 ; Right ear pain H92.01 and Stress incontinence N39.3 [place] [address] [place] [id number] [place] [address] Dec, Anxiety F41.9 [place] [address] [address] Nov, Prediabetes R73.03 ; Essential hypertension I10 ; Bilateral impacted cerumen H61.23 ; Severe episode of recurrent major depressive disorder, without psychotic features F33.2 and Lumbar radiculopathy M54.16 [place] [address] [place] [id number] [place] [address] Oct, [place] [address] [address] Oct, Arthritis M19.90 [place] [address] [place] [id number] [place] [address] Oct, Anxiety F41.9 and Arthritis M19.90 [place] [address] [address] Oct, Essential hypertension I10 ; Barretts esophagus with dysplasia K22.719 ; Pseudobulbar affect F48.2 ; Arthritis M19.90 ; Onychomycosis B35.1 and Stage 3 chronic kidney disease N18.3 [place] [address] [place] [id number] [place] [address] September, Arthritis M19.90 [place] [address] [address] September, [place] [address] [place] [id number] [place] [address] Aug, Essential hypertension I10 ; Lumbar radiculopathy M54.16 ; Anxiety F41.9 ; Intractable cyclical vomiting with nausea G43.A1 and Pseudobulbar affect F48.2 [place] [address] [place] [id number] [place] [address] Aug, Arthritis M19.90 [place] [address] [place] [id number] [place] [address] Jul, Intractable cyclical vomiting with nausea G43.A1 and Anxiety F41.9 [place] [address] [address] Jul, [place] [address] [place] [id number] [place] [address] Jul, Anxiety F41.9 and Arthritis M19.90 [place] [address] [place] [id number] [place] [address] Jul, Severe episode of recurrent major depressive disorder, without psychotic features F33.2 and Neurocognitive disorder R41.9 [facility] [address] [place] [id number] [place] [address] 27 Jun, 2017 [place] [address] [address] 20 Jun, 2017 Lumbar radiculopathy M54.16 ; Essential hypertension I10 ; Anxiety F41.9 and Chronic bronchitis, unspecified chronic bronchitis type J42 [place] [address] [address] 15 Jun, 2017 Anxiety F41.9 [place] [address] [place] [id number] [place] [address] 14 Jun, 2017 [place] [address] [address] 12 Jun, 2017 Arthritis M19.90 [place] [address] [place] [id number] [place] [address] 05 Jun, 2017 [place] [address] [place] [id number] [place] [address] 05 Jun, 2017 [place] [address] [place] [id number] [place] [address] May, [place] [address] [place] [id number] [place] [address] May, [facility] [address] [place] [id number] [place] [address] May, HPV (human papilloma virus) infection B97.7 [place] [address] [place] [id number] [place] [address] May, Anxiety F41.9 and Arthritis M19.90 [facility] [address] [place] [id number] [place] [address] 18 Apr, 2017 [place] [address] [place] [address] 15 Apr, 2017 [place] [address] [place] [id number] [place] [address] 13 Apr, 2017 Colon cancer screening Z12.11 [place] [address] [place] [id number] [place] [address] 11 Apr, 2017 [place] [address] [place] [id number] [place] [address] Apr, [place] [address] [place] [id number] [place] [address] 07 Apr, 2017 Arthritis M19.90 and Anxiety F41.9 [place] [id number] [place] [address] 30 Mar, 2017 Well woman exam Z01.419 and Colon cancer screening Z12.11 [place] [address] [place] [id number] [place] [address] 14 Mar, 2017 [place] [address] [place] [id number] [place] [address] 13 Mar, 2017 Anxiety F41.9 and Arthritis M19.90 [place] [id number] [place] [address] 19 Feb, 2017 Encounter for immunization Z23 ; Essential hypertension I10 ; Lumbar radiculopathy M54.16 ; Chronic depression F32.9 ; Routine adult health maintenance Z00.00 and Chronic bronchitis, unspecified chronic bronchitis type J42 [place] [address] [place] [id number] [place] [address] 16 Feb, 2017 Arthritis M19.90 and Anxiety F41.9 [place] [address] [place] [id number] [place] [address] Jan, Arthritis M19.90 and Anxiety F41.9 [place] [address] [place] [id number] [place] [address] Dec, Arthritis M19.90 and Anxiety F41.9 [facility] [address] [place] [id number] [place] [address] Dec, Lumbar radiculopathy M54.16 and Chronic depression F32.9 [facility] [address] [place] [id number] [place] [address] Dec, [place] [address] [address] Dec, Foot drop, right foot M21.371 ; Coronary artery disease involving hamilton coronary artery, angina presence unspecified, unspecified whether hamilton or transplanted heart I25.10 and Depressive disorder, not elsewhere classified F32.9 [place] [address] [place] [id number] [place] [address] Nov, Arthritis M19.90 [place] [address] [address] Nov, [place] [address] [place] [id number] [place] [address] Oct, [place] [address] [address] Oct, Essential hypertension I10 ; Anxiety F41.9 ; Arthritis M19.90 and Fibromyalgia M79.7 [place] [address] [place] [id number] [place] [address] September, Anxiety F41.9 [place] [address] [place] [id number] [place] [address] September, Arthritis M19.90 [place] [address] [address] Aug, Dental examination Z01.20 [place] [address] [place] [id number] [place] [address] Aug, Anxiety F41.9 [place] [address] [address] Aug, [facility] [address] [place] [id number] [place] [address] 18 Aug, 2016 Anxiety F41.9 [place] [address] [place] [id number] [place] [address] 13 Aug, 2016 Essential hypertension I10 and Arthritis M19.90 [place] [address] [place] [id number] [place] [address] 10 Aug, 2016 Depressive disorder, not elsewhere classified F32.9 [place] [address] [place] [id number] [place] [address] 29 Jul, 2016 Abrasion, unspecified lesser toe(s), sequela S90.416S and Local infection of the skin and subcutaneous tissue, unspecified L08.9 [place] [address] [place] [id number] [place] [address] Jul, Prediabetes R73.03 and Essential hypertension I10 [place] [address] [place] [address] Jul, Abnormal glucose level R73.09 [facility] [address] [place] [id number] [place] [id number] Jul, [place] [address] [place] [address] 17 Jul, 2016 Abnormal glucose level R73.09 [place] [address] [place] [id number] [place] [address] 16 Jul, 2016 Fibromyalgia M79.7 ; Arthritis M19.90 ; Chronic kidney disease, stage 2 (mild) N18.2 and Depressive disorder, not elsewhere classified F32.9 [place] [address] [place] [id number] [place] [address] 14 Jul, 2016 [place] [address] [place] [id number] [place] [address] 08 Jul, 2016 [place] [address] [place] [id number] [place] [address] Jul, [facility] [address] [place] [address] Jul, Arthritis M19.90 ; Depressive disorder, not elsewhere classified F32.9 ; Fibromyalgia M79.7 and Constipation, unspecified constipation type K59.00 [facility] [address] [place] [id number] [place] [address] 15 Jun, 2016 Anxiety F41.9 [facility] [address] [place] [id number] [place] [address] 14 Jun, 2016 Anxiety F41.9 and Fibromyalgia M79.7 [facility] [address] [address] 11 Jun, 2016 [facility] [address] [place] [id number] [place] [address] Jun, Arthritis M19.90 ; Depressive disorder, not elsewhere classified F32.9 ; Barretts esophagus with dysplasia K22.719 ; Edema, unspecified type R60.9 and Fibromyalgia M79.7 [facility] [address] [place] [id number] [place] [address] 06 Jun, 2016 [facility] [address] [place] [id number] [place] [address] May, [facility] [address] [place] [id number] [place] [address] May, Dyspnea on exertion R06.09 ; Coronary artery disease involving hamilton coronary artery, angina presence unspecified, unspecified whether hamilton or transplanted heart I25.10 and Arthritis M19.90 [facility] [address] [place] [id number] [place] [address] May, [facility] [address] [place] [id number] [place] [address] Apr, Arthritis M19.90 [facility] [address] [place] [id number] [place] [address] Apr, Arthritis M19.90 and Acute cystitis without hematuria N30.00 [facility] [address] [place] [address] Apr, [facility] [address] [place] [id number] [place] [address] Apr, Fibromyalgia M79.7 [facility] [address] [place] [id number] [place] [address] Apr, Arthritis M19.90 and Onychomycosis B35.1 [facility] [address] [place] [id number] [place] [address] Mar, [facility] [address] [place] [id number] [place] [address] Mar, Acute gout involving toe of right foot, unspecified cause M10.9 [facility] [address] [place] [id number] [place] [address] Mar, [facility] [address] [place] [id number] [place] [address] Feb, [facility] [address] [place] [id number] [place] [address] Feb, [facility] [address] [place] [id number] [place] [address] Feb, Arthritis M19.90 [facility] [address] [place] [id number] [place] [address] Jan, [facility] [address] [place] [id number] [place] [address] 19 Jan, 2016 [facility] [address] [place] [id number] [place] [address] 16 Jan, 2016 [facility] [address] [place] [id number] [place] [address] 16 Jan, 2016 [facility] [address] [place] [address] 12 Jan, 2016 Coronary artery disease involving hamilton coronary artery, angina presence unspecified, unspecified whether hamilton or transplanted heart I25.10 ; Arthritis M19.90 and Edema, unspecified type R60.9 [place] [address] [place] [id number] [place] [address] Jan, [place] [address] [address] Jan, [place] [address] [address] Jan, Anxiety F41.9 and Depressive disorder, not elsewhere classified F32.9 [place] [address] [address] Dec, Dementia without behavioral disturbance, unspecified dementia type F03.90 and Reactive depression F32.9 [place] [address] [address] Dec, [place] [address] [address] Dec, [place] [address] [place] [id number] [place] [address] Nov, Depressive disorder, not elsewhere classified F32.9 and Anxiety F41.9 [place] [address] [place] [id number] [place] [address] Nov, Coronary artery disease involving hamilton coronary artery, angina presence unspecified, unspecified whether hamilton or transplanted heart I25.10 ; Fibromyalgia M79.7 ; Arthritis M19.90 ; Anxiety F41.9 ; Hyperlipidemia, unspecified hyperlipidemia type E78.5 and Barretts esophagus with dysplasia K22.719 [place] [address] [place] [id number] [place] [address] Nov, IMMUNIZATIONS Vaccine Route Administration Date Status FLULAVAL QUAD 0.5ML (6 MO & UP) 2018 IM Intramuscular Mar 19, 2018 Administered SOCIAL HISTORY Never Assessed REASON FOR VISIT Blood Pressure Dex SPARROW , wants note to get cat used as a service cat - social serv requires it for her depression and anxiety Dex SPARROW , arms hurting -- ca nt lift to do hair or when trying to dress - no numbness Dex SPARROW , would flu sh ot Dex Sparrow PLAN OF CARE Activity Details Follow Up 3 Months Reason: VITAL SIGNS Height 67 in 2018-03-19 Weight 201 lbs 2018-03-19 Temperature 98 degrees Fahrenheit 2018-03-19 Heart Rate 73 bpm 2018-03-19 Respiratory Rate 20 2018-03-19 BMI 31.48 kg/m2 2018-03-19 Blood pressure systolic 122 mmHg 2018-03-19 Blood pressure diastolic 78 mmHg 2018-03-19 MEDICATIONS Medication Instructions Dosage Frequency Start Date End Date Duration Status Cetirizine HCl 10 TAKE 1 TABLET BY MOUTH DAILY 30 Active Alprazolam 1 MG Orally Twice a day 1 tablet 12h 28 days Active Adjust Bath/Shower Seat/Back - use in shower Jun, Active Atorvastatin Calcium 40 TAKE 1 TABLET BY MOUTH AT BEDTIME 30 Active Premarin 30GM Vaginal Insert 1 Gram every night at bedtime twice a week Active Reglan 10 MG Orally qid, ac and hs as directed Active Rivastigmine 4.6 APPLY 1 PATCH TO SKIN ONCE A DAY 30 Active Lisinopril 40 MG Orally Once a day 1 tablet 24h Active ProAir HFA 108 (90 Base) MCG/ACT Inhalation every 6 hrs 2 puffs as needed 6h Active Vitamin D3 1000 TAKE 2 CAPSULES BY MOUTH DAILY 30 Active Aspirin 325 MG Orally Once a day 1 tablet 24h 30 Active Duloxetine HCl 30 MG Orally Once a day 1 capsule 24h Active Oxycodone HCl 5 mg Orally every 6 hrs, prn pain 1 tablet Mar, 28 days Active Duloxetine HCl 30 TAKE 1 CAPSULE BY MOUTH THREE TIMES DAILY 30 Active Lisinopril 40 TAKE 1 TABLET BY MOUTH DAILY 30 Active Ranitidine HCl 150 MG Orally twice a day 1 tablet at bedtime 12h Active Folic Acid 1 MG Orally twice a day 1 tablet 12h Active Pantoprazole Sodium 40 mg Orally Once a day 1 tablet 24h Active Exelon 4.6 MG/24HR Transdermal Once a day 1 patch to skin 24h Active Rivastigmine 4.6 MG/24HR APPLY 1 PATCH TO SKIN ONCE A DAY 30 Not-Taking Atorvastatin Calcium 80 MG Orally at bedtime 1 tablet Active Metoprolol Tartrate 50 mg Orally Twice a day 1 tablet with food 12h 30 Active Cholecalciferol 1000 UNIT Orally Once a day 2 capsules 24h 30 days Active Metoprolol Tartrate 50 Orally Twice a day 1 tablet with food 12h 30 Not-Taking Toviaz 4 MG Orally Once a day 1 tablet 24h Active Incontinence Brief Large - as directed Dec, Active Multivitamin Adult - Orally Once a day 1 tablet 24h 30 Active Colace 100 mg Orally Once a day 1 capsule as needed 24h 30 Active RESULTS No Results PROCEDURES Procedure Date Ordered Result Body Site FLULAVAL QUAD 0.5ML (6 MO AND UP) 2018 Mar 19, 2018 SINGLE IMMUNIZATION ADMIN Mar 19, 2018 INSTRUCTIONS MEDICATIONS ADMINISTERED No Known Medications [...]
--- OUTSIDE RECORDS SUMMARY | 2018-12-14 11:57 | XMS REPORT ---
Author Author DELMI BYRNES [facility] Address [address] [place] [address] Care Team Providers Care Diabetes Nurse Name Role Phone DELMI BYRNES Unavailable PROBLEMS Type Condition ICD9-CM Code SBM36-SJ Code Onset Dates Condition Status SNOMED Code Problem Lumbar radiculopathy M54.16 Active 186738888 Problem Chronic bronchitis, unspecified chronic bronchitis type J42 Active 64477821 Problem Chronic depression F32.9 Active 337221495 Problem Stress incontinence N39.3 Active 49867395 Problem Onychomycosis B35.1 Active 603991993 Problem Intractable cyclical vomiting with nausea G43.A1 Active 91144318 Problem Severe episode of recurrent major depressive disorder, without psychotic features F33.2 Active 37694600 Problem Stage 3 chronic kidney disease N18.3 Active 168985203 Problem Pseudobulbar affect F48.2 Active 80017419 Problem Coronary artery disease involving lower sioux coronary artery, angina presence unspecified, unspecified whether lower sioux or transplanted heart I25.10 Active 8132841158685 Problem Barretts esophagus with dysplasia K22.719 Active 8861659048391015 Problem Hyperlipidemia, unspecified hyperlipidemia type E78.5 Active 00690854 Problem Anxiety F41.9 Active 80570767 Problem Chronic kidney disease, stage 2 (mild) N18.2 Active 739100466 Problem Arthritis M19.90 Active 8524726 Problem Prediabetes R73.03 Active 032224179 Problem Fibromyalgia M79.7 Active 976257648 Problem Essential hypertension I10 Active 69014758 ALLERGIES No Information ENCOUNTERS Encounter Location Date Diagnosis [facility] [id number] [address] Apr, [facility] [id number] [address] Apr, [facility] [id number] [place] [address] Apr, [facility] [id number] [place] [address] Apr, [place] [address] [address] Mar, Arthritis M19.90 and Anxiety F41.9 [place] [facility] [address] [address] Mar, Self-care deficit for bathing and hygiene R46.0 ; Nail hypertrophy L60.2 and Onychomycosis B35.1 [facility] [address] [address] Mar, Encounter for immunization Z23 ; Essential hypertension I10 ; Severe episode of recurrent major depressive disorder, without psychotic features F33.2 ; Fibromyalgia M79.7 and Arthritis M19.90 [place] [address] [address] Feb, Arthritis M19.90 and Anxiety F41.9 [facility] [id number] [place] [address] Feb, Anxiety F41.9 [place] [address] [address] Jan, [facility] [id number] [place] [address] Jan, [place] [address] [address] Jan, Anxiety F41.9 [facility] [id number] [place] [address] Dec, Arthritis M19.90 [facility] [id number] [place] [address] Dec, Lumbar radiculopathy M54.16 ; Right ear pain H92.01 and Stress incontinence N39.3 [facility] [id number] [place] [address] Dec, Anxiety F41.9 [place] [address] [address] Nov, Prediabetes R73.03 ; Essential hypertension I10 ; Bilateral impacted cerumen H61.23 ; Severe episode of recurrent major depressive disorder, without psychotic features F33.2 and Lumbar radiculopathy M54.16 [facility] [id number] [place] [address] Oct, [facility] [id number] [place] [address] Oct, Arthritis M19.90 [facility] [id number] [place] [address] Oct, Anxiety F41.9 and Arthritis M19.90 [facility] [id number] [place] [address] Oct, Essential hypertension I10 ; Barretts esophagus with dysplasia K22.719 ; Pseudobulbar affect F48.2 ; Arthritis M19.90 ; Onychomycosis B35.1 and Stage 3 chronic kidney disease N18.3 [facility] [id number] [place] [address] September, Arthritis M19.90 [facility] [id number] [place] [address] September, [facility] [id number] [place] [address] Aug, Essential hypertension I10 ; Lumbar radiculopathy M54.16 ; Anxiety F41.9 ; Intractable cyclical vomiting with nausea G43.A1 and Pseudobulbar affect F48.2 [facility] [id number] [place] [address] Aug, Arthritis M19.90 [place] [address] [address] 29 Jul, 2017 Intractable cyclical vomiting with nausea G43.A1 and Anxiety F41.9 [facility] [address] [address] Jul, [facility] [address] [address] 09 Jul, 2017 Anxiety F41.9 and Arthritis M19.90 [place] [address] [address] 07 Jul, 2017 Severe episode of recurrent major depressive disorder, without psychotic features F33.2 and Neurocognitive disorder R41.9 [place] [address] [address] 27 Jun, 2017 [place] [address] [address] 20 Jun, 2017 Lumbar radiculopathy M54.16 ; Essential hypertension I10 ; Anxiety F41.9 and Chronic bronchitis, unspecified chronic bronchitis type J42 [place] [facility] [address] [address] 15 Jun, 2017 Anxiety F41.9 [facility] [id number] [place] [address] 14 Jun, 2017 [facility] [id number] [place] [address] Jun, Arthritis M19.90 [facility] [id number] [place] [address] 05 Jun, 2017 [facility] [address] [address] Jun, [facility] [id number] [place] [address] May, [place] [address] [address] May, [facility] [place] [id number] [place] [address] 10 May, 2017 HPV (human papilloma virus) infection B97.7 [facility] [id number] [place] [address] May, Anxiety F41.9 and Arthritis M19.90 [place] [facility] [address] [address] 18 Apr, 2017 [facility] [id number] [place] [address] 15 Apr, 2017 [place] [address] [address] 13 Apr, 2017 Colon cancer screening Z12.11 [facility] [id number] [place] [address] 11 Apr, 2017 [facility] [id number] [place] [address] Apr, [facility] [id number] [place] [address] Apr, Arthritis M19.90 and Anxiety F41.9 [facility] [id number] [place] [address] 30 Mar, 2017 Well woman exam Z01.419 and Colon cancer screening Z12.11 [facility] [id number] [place] [address] 14 Mar, 2017 [facility] [id number] [place] [address] 13 Mar, 2017 Anxiety F41.9 and Arthritis M19.90 [place] [id number] [place] [address] 19 Feb, 2017 Encounter for immunization Z23 ; Essential hypertension I10 ; Lumbar radiculopathy M54.16 ; Chronic depression F32.9 ; Routine adult health maintenance Z00.00 and Chronic bronchitis, unspecified chronic bronchitis type J42 [facility] [id number] [place] [address] Feb, Arthritis M19.90 and Anxiety F41.9 [facility] [id number] [place] [address] Jan, Arthritis M19.90 and Anxiety F41.9 [place] [address] [address] Dec, Arthritis M19.90 and Anxiety F41.9 [place] [address] [address] Dec, Lumbar radiculopathy M54.16 and Chronic depression F32.9 [facility] [id number] [place] [address] Dec, [place] [address] [address] Dec, Foot drop, right foot M21.371 ; Coronary artery disease involving lower si[place] coronary artery, angina presence unspecified, unspecified whether lower [place] or transplanted heart I25.10 and Depressive disorder, not elsewhere classified F32.9 [facility] [id number] [place] [address] Nov, Arthritis M19.90 [facility] [id number] [place] [address] Nov, [facility] [place] [id number] [place] [address] Oct, [facility] [id number] [place] [address] Oct, Essential hypertension I10 ; Anxiety F41.9 ; Arthritis M19.90 and Fibromyalgia M79.7 [facility] [id number] [place] [address] September, Anxiety F41.9 [place] [address] [address] September, Arthritis M19.90 [place] [address] [place] [address] Aug, Dental examination Z01.20 [facility] [place] [id number] [place] [address] Aug, Anxiety F41.9 [place] [place] [address] [place] [address] Aug, [facility] [place] [address] [place] [address] Aug, Anxiety F41.9 [place] [address] [address] Aug, Essential hypertension I10 and Arthritis M19.90 [place] [place] [id number] [place] [address] Aug, Depressive disorder, not elsewhere classified F32.9 [facility] [place] [address] [place] [address] Jul, Abrasion, unspecified lesser toe(s), sequela S90.416S and Local infection of the skin and subcutaneous tissue, unspecified L08.9 [place] [address] [place] [address] Jul, Prediabetes R73.03 and Essential hypertension I10 [place] [address] [place] [address] Jul, Abnormal glucose level R73.09 [facility] [id number] [id number] Jul, [place] [address] [place] [address] Jul, Abnormal glucose level R73.09 [place] [address] [place] [address] Jul, Fibromyalgia M79.7 ; Arthritis M19.90 ; Chronic kidney disease, stage 2 (mild) N18.2 and Depressive disorder, not elsewhere classified F32.9 [facility] [id number] [place] [address] Jul, [facility] [id number] [place] [address] Jul, [facility] [address] [place] [address] Jul, [facility] [address] [place] [address] Jul, Arthritis M19.90 ; Depressive disorder, not elsewhere classified F32.9 ; Fibromyalgia M79.7 and Constipation, unspecified constipation type K59.00 [place] [address] [place] [address] 15 Jun, 2016 Anxiety F41.9 [place] [address] [place] [address] 14 Jun, 2016 Anxiety F41.9 and Fibromyalgia M79.7 [facility] [address] [place] [address] Jun, [facility] [address] [place] [address] 10 Jun, 2016 Arthritis M19.90 ; Depressive disorder, not elsewhere classified F32.9 ; Barretts esophagus with dysplasia K22.719 ; Edema, unspecified type R60.9 and Fibromyalgia M79.7 [facility] [id number] [place] [address] Jun, [facility] [address] [place] [address] May, [place] [address] [place] [address] May, Dyspnea on exertion R06.09 ; Coronary artery disease involving lower [place] coronary artery, angina presence unspecified, unspecified whether lower [place] or transplanted heart I25.10 and Arthritis M19.90 [facility] [address], [place] [address] May, [facility] [id number] [place] [address] Apr, Arthritis M19.90 [facility] [address] [place] [address] Apr, Arthritis M19.90 and Acute cystitis without hematuria N30.00 [facility] [address] [place] [address] Apr, [facility] [address] [place] [address] Apr, Fibromyalgia M79.7 [facility] [address] [place] [address] Apr, Arthritis M19.90 and Onychomycosis B35.1 [facility] [id number] [place] [address] Mar, [facility] [id number] [place] [address] Mar, Acute gout involving toe of right foot, unspecified cause M10.9 [facility] [address] [place] [address] Mar, [facility] [address] [place] [address] Feb, [facility] [address] [place] [address] Feb, [facility] [id number] [place] [address] Feb, Arthritis M19.90 [facility] [address] [place] [address] Jan, [facility] [id number] [place] [address] Jan, [facility] [address] [place] [address] Jan, [facility] [address] [place] [address] Jan, [facility] [id number] [place] [address] Jan, Coronary artery disease involving lower [place] coronary artery, angina presence unspecified, unspecified whether lower [place] or transplanted heart I25.10 ; Arthritis M19.90 and Edema, unspecified type R60.9 [facility] [id number] [place] [address] Jan, [facility] [id number] [place] [address] Jan, [facility] [id number] [place] [address] Jan, Anxiety F41.9 and Depressive disorder, not elsewhere classified F32.9 [facility] [address] [place] [address] Dec, Dementia without behavioral disturbance, unspecified dementia type F03.90 and Reactive depression F32.9 [facility] [address] [place] [address] Dec, [facility] [address] [place] [address] Dec, [facility] [address] [place] [address] Nov, Depressive disorder, not elsewhere classified F32.9 and Anxiety F41.9 [facility] [address] [place] [address] Nov, Coronary artery disease involving lower [place] coronary artery, angina presence unspecified, unspecified whether lower [place] or transplanted heart I25.10 ; Fibromyalgia M79.7 ; Arthritis M19.90 ; Anxiety F41.9 ; Hyperlipidemia, unspecified hyperlipidemia type E78.5 and Barretts esophagus with dysplasia K22.719 [facility] [address] [facility] [id number] [place] [address] Nov, IMMUNIZATIONS No Known Immunizations SOCIAL HISTORY Never Assessed REASON FOR VISIT controlled refill PLAN OF CARE VITAL SIGNS MEDICATIONS Unknown [...]
--- OUTSIDE RECORDS SUMMARY | 2018-12-14 11:58 | XMS REPORT ---
Author Author DELMI BYRNES [facility] Address [address] [place] [address] Care Team Providers Care Application Engineer Name Role Phone DELMI BYRNES Unavailable PROBLEMS Type Condition ICD9-CM Code EBE97-JP Code Onset Dates Condition Status SNOMED Code Problem Lumbar radiculopathy M54.16 Active 886878749 Problem Chronic bronchitis, unspecified chronic bronchitis type J42 Active 72321173 Problem Chronic depression F32.9 Active 719979415 Problem Stress incontinence N39.3 Active 11983235 Problem Onychomycosis B35.1 Active 773181259 Problem Intractable cyclical vomiting with nausea G43.A1 Active 52409066 Problem Severe episode of recurrent major depressive disorder, without psychotic features F33.2 Active 37555821 Problem Stage 3 chronic kidney disease N18.3 Active 659794278 Problem Pseudobulbar affect F48.2 Active 40240179 Problem Coronary artery disease involving nulato coronary artery, angina presence unspecified, unspecified whether nulato or transplanted heart I25.10 Active 6998277515456 Problem Barretts esophagus with dysplasia K22.719 Active 0473022427033383 Problem Hyperlipidemia, unspecified hyperlipidemia type E78.5 Active 67412991 Problem Anxiety F41.9 Active 10144225 Problem Chronic kidney disease, stage 2 (mild) N18.2 Active 144297105 Problem Arthritis M19.90 Active 7649556 Problem Prediabetes R73.03 Active 975059433 Problem Fibromyalgia M79.7 Active 699750040 Problem Essential hypertension I10 Active 02874273 ALLERGIES No Information ENCOUNTERS Encounter Location Date Diagnosis [facility] [id number] [address] Feb, [facility] [id number] [address] Feb, [facility] [id number] [place] [address] Feb, Anxiety F41.9 [facility] [id number] [place] [address] Jan, [facility] [id number] [place] [address] Jan, [facility] [id number] [place] [address] 05 Jan, 2018 Anxiety F41.9 [facility] [id number] [place] [address] Dec, Arthritis M19.90 [facility] [id number] [place] [address] Dec, Lumbar radiculopathy M54.16 ; Right ear pain H92.01 and Stress incontinence N39.3 [facility] [id number] [place] [address] Dec, Anxiety F41.9 [facility] [id number] [place] [address] Nov, Prediabetes R73.03 ; Essential hypertension I10 ; Bilateral impacted cerumen H61.23 ; Severe episode of recurrent major depressive disorder, without psychotic features F33.2 and Lumbar radiculopathy M54.16 [facility] [id number] [place] [address] Oct, [facility] [id number] [place] [address] 14 Oct, 2017 Arthritis M19.90 [facility] [id number] [place] [address] 12 Oct, 2017 Anxiety F41.9 and Arthritis M19.90 [facility] [id number] [place] [address] Oct, Essential hypertension I10 ; Barretts esophagus with dysplasia K22.719 ; Pseudobulbar affect F48.2 ; Arthritis M19.90 ; Onychomycosis B35.1 and Stage 3 chronic kidney disease N18.3 [facility] [address] [address] September, Arthritis M19.90 [facility] [address] [address] September, [facility] [address] [address] Aug, Essential hypertension I10 ; Lumbar radiculopathy M54.16 ; Anxiety F41.9 ; Intractable cyclical vomiting with nausea G43.A1 and Pseudobulbar affect F48.2 [facility] [address] [address] Aug, Arthritis M19.90 [facility] [address] [address] Jul, Intractable cyclical vomiting with nausea G43.A1 and Anxiety F41.9 [facility] [address] [address] Jul, [facility] [address] [address] Jul, Anxiety F41.9 and Arthritis M19.90 [facility] [address] [address] Jul, Severe episode of recurrent major depressive disorder, without psychotic features F33.2 and Neurocognitive disorder R41.9 [facility] [id number] [place] [address] Jun, [facility] [address] [address] Jun, Lumbar radiculopathy M54.16 ; Essential hypertension I10 ; Anxiety F41.9 and Chronic bronchitis, unspecified chronic bronchitis type J42 [facility] [address] [address] 15 Jun, 2017 Anxiety F41.9 [facility] [address] [address] 14 Jun, 2017 [facility] [address] [address] 12 Jun, 2017 Arthritis M19.90 [facility] [id number] [place] [address] 05 Jun, 2017 [facility] [id number] [place] [address] 05 Jun, 2017 [facility] [id number] [place] [address] May, [facility] [id number] [place] [address] May, [facility] [id number] [place] [address] May, HPV (human papilloma virus) infection B97.7 [facility] [id number] [place] [address] May, Anxiety F41.9 and Arthritis M19.90 [facility] [address] [address] Apr, [facility] [address], [place] [address] Apr, [facility] [address] [address] 13 Apr, 2017 Colon cancer screening Z12.11 [facility] [address], [place] [address] Apr, [facility] [address], [place] [address] Apr, [facility] [id number] [place] [address] Apr, Arthritis M19.90 and Anxiety F41.9 [facility] [id number] [place] [address] 30 Mar, 2017 Well woman exam Z01.419 and Colon cancer screening Z12.11 [facility] [id number] [place] [address] 14 Mar, 2017 [facility] [address] [address] 13 Mar, 2017 Anxiety F41.9 and Arthritis M19.90 [facility] [address] [address] 19 Feb, 2017 Encounter for immunization Z23 ; Essential hypertension I10 ; Lumbar radiculopathy M54.16 ; Chronic depression F32.9 ; Routine adult health maintenance Z00.00 and Chronic bronchitis, unspecified chronic bronchitis type J42 [facility] [facility] [address] [address] Feb, Arthritis M19.90 and Anxiety F41.9 [facility] [address] [address] Jan, Arthritis M19.90 and Anxiety F41.9 [facility] [address] [address] Dec, Arthritis M19.90 and Anxiety F41.9 [facility] [id number] [place] [address] Dec, Lumbar radiculopathy M54.16 and Chronic depression F32.9 [facility] [id number] [place] [address] Dec, [facility] [address] [address] Dec, Foot drop, right foot M21.371 ; Coronary artery disease involving nulato coronary artery, angina presence unspecified, unspecified whether nulato or transplanted heart I25.10 and Depressive disorder, not elsewhere classified F32.9 [facility] [id number] [place] [address] Nov, Arthritis M19.90 [facility] [id number] [place] [address] Nov, [facility] [id number] [place] [address] Oct, [facility] [address] [address] Oct, Essential hypertension I10 ; Anxiety F41.9 ; Arthritis M19.90 and Fibromyalgia M79.7 [facility] [address] [address] September, Anxiety F41.9 [facility] [address] [address] September, Arthritis M19.90 [facility] [address] [address] Aug, Dental examination Z01.20 [facility] [address] [address] Aug, Anxiety F41.9 [facility] [id number] [place] [address] Aug, [facility] [id number] [place] [address] Aug, Anxiety F41.9 [facility] [id number] [place] [address] Aug, Essential hypertension I10 and Arthritis M19.90 [facility] [id number] [place] [address] Aug, Depressive disorder, not elsewhere classified F32.9 [facility] [id number] [place] [address] Jul, Abrasion, unspecified lesser toe(s), sequela S90.416S and Local infection of the skin and subcutaneous tissue, unspecified L08.9 [facility] [id number] [place] [address] Jul, Prediabetes R73.03 and Essential hypertension I10 [facility] [id number] [place] [address] Jul, Abnormal glucose level R73.09 [facility] [id number] [id number] Jul, [facility] [id number] [place] [address] Jul, Abnormal glucose level R73.09 [facility] [id number] [place] [address] 16 Jul, 2016 Fibromyalgia M79.7 ; Arthritis M19.90 ; Chronic kidney disease, stage 2 (mild) N18.2 and Depressive disorder, not elsewhere classified F32.9 [facility] [id number] [place] [address] Jul, [facility] [id number] [place] [address] Jul, [facility] [id number] [place] [address] Jul, [place] [id number] [place] [address] Jul, Arthritis M19.90 ; Depressive disorder, not elsewhere classified F32.9 ; Fibromyalgia M79.7 and Constipation, unspecified constipation type K59.00 [facility] [id number] [place] [address] 15 Jun, 2016 Anxiety F41.9 [facility] [id number] [place] [address] 14 Jun, 2016 Anxiety F41.9 and Fibromyalgia M79.7 [facility] [address] [address] 11 Jun, 2016 [facility] [id number] [place] [address] 10 Jun, 2016 Arthritis M19.90 ; Depressive disorder, not elsewhere classified F32.9 ; Barretts esophagus with dysplasia K22.719 ; Edema, unspecified type R60.9 and Fibromyalgia M79.7 [facility] [id number] [place] [address] 06 Jun, 2016 [facility] [id number] [place] [address] May, [facility] [id number] [place] [address] May, Dyspnea on exertion R06.09 ; Coronary artery disease involving nulato coronary artery, angina presence unspecified, unspecified whether nulato or transplanted heart I25.10 and Arthritis M19.90 [facility] [id number] [place] [address] May, [facility] [id number] [place] [address] Apr, Arthritis M19.90 [facility] [id number] [place] [address] Apr, Arthritis M19.90 and Acute cystitis without hematuria N30.00 [facility] [address] [place] [address] Apr, [facility] [id number] [place] [address] Apr, Fibromyalgia M79.7 [facility] [id number] [place] [address] Apr, Arthritis M19.90 and Onychomycosis B35.1 [facility] [id number] [place] [address] Mar, [facility] [id number] [address] Mar, Acute gout involving toe of right foot, unspecified cause M10.9 [facility] [id number] [place] [address] Mar, [facility] [id number] [place] [phone] Feb, [facility] [id number] [place] [address] Feb, [facility] [id number] [place] [address] Feb, Arthritis M19.90 [facility] [id number] [place] [address] 23 Jan, 2016 [facility] [id number] [place] [address] 19 Jan, 2016 [facility] [id number] [place] [address] 16 Jan, 2016 [facility] [id number] [place] [address] 16 Jan, 2016 [facility] [id number] [place] [address] 12 Jan, 2016 Coronary artery disease involving nulato coronary artery, angina presence unspecified, unspecified whether nulato or transplanted heart I25.10 ; Arthritis M19.90 and Edema, unspecified type R60.9 [facility] [address] [address] 07 Jan, 2016 [facility] [id number] [place] [address] 06 Jan, 2016 [facility] [id number] [place] [address] 02 Jan, 2016 Anxiety F41.9 and Depressive disorder, not elsewhere classified F32.9 [facility] [id number] [place] [address] Dec, Dementia without behavioral disturbance, unspecified dementia type F03.90 and Reactive depression F32.9 [facility] [id number] [address] Dec, [facility] [id number] [address] Dec, [facility] [address], [place] [address] Nov, Depressive disorder, not elsewhere classified F32.9 and Anxiety F41.9 [facility] [id number] [address] Nov, Coronary artery disease involving nulato coronary artery, angina presence unspecified, unspecified whether nulato or transplanted heart I25.10 ; Fibromyalgia M79.7 ; Arthritis M19.90 ; Anxiety F41.9 ; Hyperlipidemia, unspecified hyperlipidemia type E78.5 and Barretts esophagus with dysplasia K22.719 [facility] [id number], [place] [address] Nov, IMMUNIZATIONS No Known Immunizations SOCIAL HISTORY Never Assessed REASON FOR VISIT Controlled Med Refill PLAN OF CARE VITAL SIGNS MEDICATIONS Medication Instructions Dosage Frequency Start Date End Date Duration Status Alprazolam 1 MG Orally Twice a day 1 tablet 12h 28 days Active RESULTS No Results PROCEDURES [...]
--- OUTSIDE RECORDS SUMMARY | 2018-12-14 11:58 | XMS REPORT ---
Author Author DELMI BYRNES [facility] Address [address] [place] [address] Care Team Providers Care Wire Threader Name Role Phone DELMI BYRNES Unavailable PROBLEMS Type Condition ICD9-CM Code PHS01-IE Code Onset Dates Condition Status SNOMED Code Problem Lumbar radiculopathy M54.16 Active 712180343 Problem Chronic bronchitis, unspecified chronic bronchitis type J42 Active 35716151 Problem Chronic depression F32.9 Active 148406000 Problem Stress incontinence N39.3 Active 86032613 Problem Onychomycosis B35.1 Active 216221197 Problem Intractable cyclical vomiting with nausea G43.A1 Active 60473528 Problem Severe episode of recurrent major depressive disorder, without psychotic features F33.2 Active 24245266 Problem Stage 3 chronic kidney disease N18.3 Active 778848870 Problem Pseudobulbar affect F48.2 Active 59429241 Problem Coronary artery disease involving torres martinez coronary artery, angina presence unspecified, unspecified whether torres martinez or transplanted heart I25.10 Active 1847152336419 Problem Barretts esophagus with dysplasia K22.719 Active 1210646455605406 Problem Hyperlipidemia, unspecified hyperlipidemia type E78.5 Active 16563695 Problem Anxiety F41.9 Active 20691601 Problem Chronic kidney disease, stage 2 (mild) N18.2 Active 611235382 Problem Arthritis M19.90 Active 2700432 Problem Prediabetes R73.03 Active 196817177 Problem Fibromyalgia M79.7 Active 659004501 Problem Essential hypertension I10 Active 43793984 ALLERGIES No Information ENCOUNTERS Encounter Location Date Diagnosis [facility] [place] [id number], [place] [address] Mar, [facility] [place] [id number], [place] [address] Mar, [facility] [place] [id number] [place] [id number] Feb, Arthritis M19.90 and Anxiety F41.9 [facility] [id number] [place] [id number] Feb, Anxiety F41.9 [facility] [place] [id number] [place] [id number] 11 Jan, 2018 [facility] [place] [address] [address] Jan, [facility] [place] [id number] [place] [address] 05 Jan, 2018 Anxiety F41.9 [facility] [facility] [id number] [place] [address] 29 Dec, 2017 Arthritis M19.90 [facility] [id number] [place] [address] Dec, Lumbar radiculopathy M54.16 ; Right ear pain H92.01 and Stress incontinence N39.3 [place] [facility] [id number] [place] [address] Dec, Anxiety F41.9 [facility] [facility] [id number] [place] [id number] 23 Nov, 2017 Prediabetes R73.03 ; Essential hypertension I10 ; Bilateral impacted cerumen H61.23 ; Severe episode of recurrent major depressive disorder, without psychotic features F33.2 and Lumbar radiculopathy M54.16 [place] [facility] [id number] [place] [address] Oct, [address] [address] [address] 14 Oct, 2017 Arthritis M19.90 [place] [facility] [id number] [place] [id number] 12 Oct, 2017 Anxiety F41.9 and Arthritis M19.90 [place] [address] [place] [address] Oct, Essential hypertension I10 ; Barretts esophagus with dysplasia K22.719 ; Pseudobulbar affect F48.2 ; Arthritis M19.90 ; Onychomycosis B35.1 and Stage 3 chronic kidney disease N18.3 [facility] [facility] [id number] [place] [address] September, Arthritis M19.90 [place] [address] [address] September, [place] [facility] [id number] [place] [address] Aug, Essential hypertension I10 ; Lumbar radiculopathy M54.16 ; Anxiety F41.9 ; Intractable cyclical vomiting with nausea G43.A1 and Pseudobulbar affect F48.2 [place] [facility] [id number] [place] [address] Aug, Arthritis M19.90 [facility] [facility] [id number] [place] [address] Jul, Intractable cyclical vomiting with nausea G43.A1 and Anxiety F41.9 [place] [facility] [id number] [place] [address] Jul, [facility] [facility] [id number] [place] [address] Jul, Anxiety F41.9 and Arthritis M19.90 [facility] [id number] [place] [address] Jul, Severe episode of recurrent major depressive disorder, without psychotic features F33.2 and Neurocognitive disorder R41.9 [place] [facility] [id number] [place] [address] Jun, [place] [facility] [id number] [place] [address] Jun, Lumbar radiculopathy M54.16 ; Essential hypertension I10 ; Anxiety F41.9 and Chronic bronchitis, unspecified chronic bronchitis type J42 [facility] [id number] [place] [id number] 15 Jun, 2017 Anxiety F41.9 [facility] [place] [id number] [place] [address] 14 Jun, 2017 [facility] [place] [address] [address] Jun, Arthritis M19.90 [facility] [place] [id number] [place] [phone] Jun, [facility] [place] [address] [address] 05 Jun, 2017 [facility] [place] [id number] [place] [address] May, [facility] [place] [id number] [place] [phone] May, [facility] [place] [id number] [place] [address] May, HPV (human papilloma virus) infection B97.7 [facility] [place] [id number] [place] [address] May, Anxiety F41.9 and Arthritis M19.90 [facility] [place] [id number] [place] [address] Apr, [facility] [place] [id number] [place] [address] Apr, [facility] [place] [address] [address] 13 Apr, 2017 Colon cancer screening Z12.11 [facility] [place] [id number] [place] [address] Apr, [facility] [place] [id number] [place] [id number] Apr, [facility] [id number] [place] [address] Apr, Arthritis M19.90 and Anxiety F41.9 [place] [facility] [id number] [place] [id number] 30 Mar, 2017 Well woman exam Z01.419 and Colon cancer screening Z12.11 [place] [address] [address] 14 Mar, 2017 [place] [address] [address] Mar, Anxiety F41.9 and Arthritis M19.90 [facility] [facility] [id number] [place] [address] 19 Feb, 2017 Encounter for immunization Z23 ; Essential hypertension I10 ; Lumbar radiculopathy M54.16 ; Chronic depression F32.9 ; Routine adult health maintenance Z00.00 and Chronic bronchitis, unspecified chronic bronchitis type J42 [facility] [facility] [id number] [place] [address] Feb, Arthritis M19.90 and Anxiety F41.9 [place] [facility] [id number] [place] [address] Jan, Arthritis M19.90 and Anxiety F41.9 [facility] [facility] [id number] [place] [address] Dec, Arthritis M19.90 and Anxiety F41.9 [place] [id number] [place] [address] Dec, Lumbar radiculopathy M54.16 and Chronic depression F32.9 [place] [id number] [place] [address] Dec, [place] [address] [address] Dec, Foot drop, right foot M21.371 ; Coronary artery disease involving torres martinez coronary artery, angina presence unspecified, unspecified whether torres martinez or transplanted heart I25.10 and Depressive disorder, not elsewhere classified F32.9 [facility] [place] [id number] [place] [address] Nov, Arthritis M19.90 [facility] [place] [address] [address] Nov, [facility] [place] [address] [address] Oct, [place] [address] [address] Oct, Essential hypertension I10 ; Anxiety F41.9 ; Arthritis M19.90 and Fibromyalgia M79.7 [address] [address] [address] September, Anxiety F41.9 [address] [address] [address] September, Arthritis M19.90 [place] [address] [address] Aug, Dental examination Z01.20 [place] [id number] [place] [address] Aug, Anxiety F41.9 [address] [address] [address] Aug, [place] [id number] [place] [address] Aug, Anxiety F41.9 [address] [address] [address] Aug, Essential hypertension I10 and Arthritis M19.90 [facility] [place] [id number] [place] [address] Aug, Depressive disorder, not elsewhere classified F32.9 [facility] [place] [address], [place] [address] Jul, Abrasion, unspecified lesser toe(s), sequela S90.416S and Local infection of the skin and subcutaneous tissue, unspecified L08.9 [facility] [place] [address] [place] [address] Jul, Prediabetes R73.03 and Essential hypertension I10 [facility] [place] [id number] [place] [address] Jul, Abnormal glucose level R73.09 [facility] [id number] [place] [id number] Jul, [id number] [place] [address] Jul, Abnormal glucose level R73.09 [address] [id number] [place] [address] 16 Jul, 2016 Fibromyalgia M79.7 ; Arthritis M19.90 ; Chronic kidney disease, stage 2 (mild) N18.2 and Depressive disorder, not elsewhere classified F32.9 [address] [id number] [place] [address] Jul, [address] [address] [place] [address] Jul, [place] [id number] [place] [address] Jul, [address] [place] [place] [address] Jul, Arthritis M19.90 ; Depressive disorder, not elsewhere classified F32.9 ; Fibromyalgia M79.7 and Constipation, unspecified constipation type K59.00 [address] [address] [place] [address] 15 Jun, 2016 Anxiety F41.9 [place] [id number] [place] [address] 14 Jun, 2016 Anxiety F41.9 and Fibromyalgia M79.7 [facility] [place] [address] [address] 11 Jun, 2016 [facility] [place] [id number] [place] [address] 10 Jun, 2016 Arthritis M19.90 ; Depressive disorder, not elsewhere classified F32.9 ; Barretts esophagus with dysplasia K22.719 ; Edema, unspecified type R60.9 and Fibromyalgia M79.7 [facility] [place] [id number] [place] [address] 06 Jun, 2016 [facility] [place] [address] [address] May, [place] [address] [address] May, Dyspnea on exertion R06.09 ; Coronary artery disease involving torres martinez coronary artery, angina presence unspecified, unspecified whether torres martinez or transplanted heart I25.10 and Arthritis M19.90 [address] [id number] [place] [address] May, [facility] [place] [id number] [place] [address] Apr, Arthritis M19.90 [facility] [place] [id number] [place] [address] Apr, Arthritis M19.90 and Acute cystitis without hematuria N30.00 [facility] [address] [place] [address] Apr, [facility] [place] [id number] [place] [address] Apr, Fibromyalgia M79.7 [facility] [place] [id number] [place] [address] Apr, Arthritis M19.90 and Onychomycosis B35.1 [facility] [place] [address] [address] Mar, [facility] [place] [id number] [place] [address] Mar, Acute gout involving toe of right foot, unspecified cause M10.9 [facility] [place] [id number] [place] [address] Mar, [facility] [place] [id number] [place] [address] Feb, [facility] [place] [id number] [place] [address] Feb, [facility] [place] [id number] [place] [address] Feb, Arthritis M19.90 [facility] [place] [id number] [place] [address] Jan, [facility] [place] [id number] [place] [address] 19 Jan, 2016 [facility] [place] [id number] [place] [address] 16 Jan, 2016 [facility] [place] [id number] [place] [address] 16 Jan, 2016 [facility] [place] [id number] [place] [address] 12 Jan, 2016 Coronary artery disease involving torres martinez coronary artery, angina presence unspecified, unspecified whether torres martinez or transplanted heart I25.10 ; Arthritis M19.90 and Edema, unspecified type R60.9 [facility] [place] [id number] [place] [address] 07 Jan, 2016 [facility] [place] [id number] [place] [address] 06 Jan, 2016 [facility] [place] [id number] [place] [address] Jan, Anxiety F41.9 and Depressive disorder, not elsewhere classified F32.9 [address] [address], [place] [address] Dec, Dementia without behavioral disturbance, unspecified dementia type F03.90 and Reactive depression F32.9 [address] [address], [place] [address] Dec, [address] [id number] [place] [address] Dec, [address] [place] [address] Nov, Depressive disorder, not elsewhere classified F32.9 and Anxiety F41.9 [address] [address] [address] Nov, Coronary artery disease involving torres martinez coronary artery, angina presence unspecified, unspecified whether torres martinez or transplanted heart I25.10 ; Fibromyalgia M79.7 ; Arthritis M19.90 ; Anxiety F41.9 ; Hyperlipidemia, unspecified hyperlipidemia type E78.5 and Barretts esophagus with dysplasia K22.719 [place] [address] [place] [address] Nov, IMMUNIZATIONS No Known Immunizations SOCIAL HISTORY Never Assessed REASON FOR VISIT Controlled Med Refill 03/15 PLAN OF CARE VITAL SIGNS MEDICATIONS Medication [...]
--- OUTSIDE RECORDS SUMMARY | 2018-12-14 11:58 | XMS REPORT ---
Author Author DELMI BYRNES Organization [facility] Address [address] [place] [address] Care Team Providers Care Command Center Officer Name Role Phone DELMI BYRNES Unavailable PROBLEMS Type Condition ICD9-CM Code [id number] Code Onset Dates Condition Status SNOMED Code Problem Lumbar radiculopathy M54.16 Active 174586162 Problem Chronic bronchitis, unspecified chronic bronchitis type J42 Active 19329998 Problem Chronic depression F32.9 Active 958563517 Problem Stress incontinence N39.3 Active 60613600 Problem Onychomycosis B35.1 Active 712134165 Problem Intractable cyclical vomiting with nausea G43.A1 Active 08803712 Problem Severe episode of recurrent major depressive disorder, without psychotic features F33.2 Active 76263880 Problem Stage 3 chronic kidney disease N18.3 Active 669259137 Problem Pseudobulbar affect F48.2 Active 53261580 Problem Coronary artery disease involving gambell coronary artery, angina presence unspecified, unspecified whether gambell or transplanted heart I25.10 Active 5039159142612 Problem Barretts esophagus with dysplasia K22.719 Active 8217183547809378 Problem Hyperlipidemia, unspecified hyperlipidemia type E78.5 Active 45813309 Problem Anxiety F41.9 Active 89432075 Problem Chronic kidney disease, stage 2 (mild) N18.2 Active 865644980 Problem Arthritis M19.90 Active 1161699 Problem Prediabetes R73.03 Active 886922504 Problem Fibromyalgia M79.7 Active 945550124 Problem Essential hypertension I10 Active 38389312 ALLERGIES No Information ENCOUNTERS Encounter Location Date Diagnosis [facility] [id number] [address] Feb, [facility] [id number] [address] Feb, Anxiety F41.9 [facility] [id number] [place] [address] 11 Jan, 2018 [facility] [id number] [place] [address] Jan, [facility] [id number] [place] [address] 05 Jan, 2018 Anxiety F41.9 [facility] [address] [address] Dec, Arthritis M19.90 [facility] [address] [address] Dec, Lumbar radiculopathy M54.16 ; Right ear pain H92.01 and Stress incontinence N39.3 [facility] [id number] [place] [address] Dec, Anxiety F41.9 [facility] [address] [address] Nov, Prediabetes R73.03 ; Essential hypertension I10 ; Bilateral impacted cerumen H61.23 ; Severe episode of recurrent major depressive disorder, without psychotic features F33.2 and Lumbar radiculopathy M54.16 [facility] [id number] [place] [address] Oct, [facility] [id number] [place] [address] Oct, Arthritis M19.90 [facility] [id number] [place] [address] Oct, Anxiety F41.9 and Arthritis M19.90 [facility] [address] [address] Oct, Essential hypertension I10 ; Barretts esophagus with dysplasia K22.719 ; Pseudobulbar affect F48.2 ; Arthritis M19.90 ; Onychomycosis B35.1 and Stage 3 chronic kidney disease N18.3 [facility] [id number] [place] [address] September, Arthritis M19.90 [facility] [address] [address] September, [facility] [id number] [place] [address] Aug, Essential hypertension I10 ; Lumbar radiculopathy M54.16 ; Anxiety F41.9 ; Intractable cyclical vomiting with nausea G43.A1 and Pseudobulbar affect F48.2 [facility] [id number] [place] [address] Aug, Arthritis M19.90 [facility] [id number] [place] [address] Jul, Intractable cyclical vomiting with nausea G43.A1 and Anxiety F41.9 [facility] [id number] [place] [address] Jul, [facility] [id number] [place] [address] Jul, Anxiety F41.9 and Arthritis M19.90 [facility] [id number] [place] [address] Jul, Severe episode of recurrent major depressive disorder, without psychotic features F33.2 and Neurocognitive disorder R41.9 [facility] [id number] [place] [address] Jun, [facility] [id number] [place] [address] Jun, Lumbar radiculopathy M54.16 ; Essential hypertension I10 ; Anxiety F41.9 and Chronic bronchitis, unspecified chronic bronchitis type J42 [facility] [id number] [place] [address] Jun, Anxiety F41.9 [facility] [address] [place] [address] 14 Jun, 2017 [facility] [id number] [place] [address] 12 Jun, 2017 Arthritis M19.90 [facility] [id number] [place] [address] 05 Jun, 2017 [facility] [id number] [place] [address] 05 Jun, 2017 [facility] [id number] [place] [address] 18 May, 2017 [facility] [id number] [place] [address] 16 May, 2017 [facility] [id number] [place] [address] 10 May, 2017 HPV (human papilloma virus) infection B97.7 [facility] [id number] [place] [address] May, Anxiety F41.9 and Arthritis M19.90 [facility] [id number] [place] [address] Apr, [facility] [address] [place] [address] Apr, [facility] [id number] [place] [address] 13 Apr, 2017 Colon cancer screening Z12.11 [facility] [address] [place] [address] Apr, [facility] [id number] [place] [address] Apr, [facility] [address], [place] [address] 07 Apr, 2017 Arthritis M19.90 and Anxiety F41.9 [facility] [address] [address] 30 Mar, 2017 Well woman exam Z01.419 and Colon cancer screening Z12.11 [facility] [address] [address] 14 Mar, 2017 [place] [address] [address] 13 Mar, 2017 Anxiety F41.9 and Arthritis M19.90 [place] [address] [address] 19 Feb, 2017 Encounter for immunization Z23 ; Essential hypertension I10 ; Lumbar radiculopathy M54.16 ; Chronic depression F32.9 ; Routine adult health maintenance Z00.00 and Chronic bronchitis, unspecified chronic bronchitis type J42 [address] [address] 16 Feb, 2017 Arthritis M19.90 and Anxiety F41.9 [facility] [address] [address] Jan, Arthritis M19.90 and Anxiety F41.9 [place] [address] [address] Dec, Arthritis M19.90 and Anxiety F41.9 [facility] [id number] [place] [address] Dec, Lumbar radiculopathy M54.16 and Chronic depression F32.9 [facility] [id number] [place] [address] Dec, [place] [address] [address] Dec, Foot drop, right foot M21.371 ; Coronary artery disease involving gambell coronary artery, angina presence unspecified, unspecified whether gambell or transplanted heart I25.10 and Depressive disorder, not elsewhere classified F32.9 [facility] [address] [address] Nov, Arthritis M19.90 [facility] [id number] [place] [address] Nov, [facility] [id number] [place] [address] Oct, [facility] [id number] [place] [address] Oct, Essential hypertension I10 ; Anxiety F41.9 ; Arthritis M19.90 and Fibromyalgia M79.7 [facility] [id number] [place] [address] September, Anxiety F41.9 [facility] [address] [address] September, Arthritis M19.90 [facility] [id number] [place] [address] Aug, Dental examination Z01.20 [facility] [id number] [place] [address] Aug, Anxiety F41.9 [facility] [address] [address] Aug, [facility] [id number] [place] [address] Aug, Anxiety F41.9 [facility] [id number] [place] [address] Aug, Essential hypertension I10 and Arthritis M19.90 [facility] [id number] [place] [address] Aug, Depressive disorder, not elsewhere classified F32.9 [facility] [id number] [place] [address] Jul, Abrasion, unspecified lesser toe(s), sequela S90.416S and Local infection of the skin and subcutaneous tissue, unspecified L08.9 [place] [address], [place] [address] Jul, Prediabetes R73.03 and Essential hypertension I10 [facility] [address], [place] [address] Jul, Abnormal glucose level R73.09 [facility] [id number] [id number] Jul, [facility] [address] [place] [address] Jul, Abnormal glucose level R73.09 [facility] [address] [place] [address] 16 Jul, 2016 Fibromyalgia M79.7 ; Arthritis M19.90 ; Chronic kidney disease, stage 2 (mild) N18.2 and Depressive disorder, not elsewhere classified F32.9 [facility] [address] [place] [address] Jul, [facility] [address], [place] [address] Jul, [facility] [id number] [place] [address] Jul, [facility] [address], [place] [address] Jul, Arthritis M19.90 ; Depressive disorder, not elsewhere classified F32.9 ; Fibromyalgia M79.7 and Constipation, unspecified constipation type K59.00 [facility] [address], [place] [address] 15 Jun, 2016 Anxiety F41.9 [facility] [address] [place] [address] 14 Jun, 2016 Anxiety F41.9 and Fibromyalgia M79.7 [facility] [address], [place] [address] Jun, [facility] [id number] [place] [address] 10 Jun, 2016 Arthritis M19.90 ; Depressive disorder, not elsewhere classified F32.9 ; Barretts esophagus with dysplasia K22.719 ; Edema, unspecified type R60.9 and Fibromyalgia M79.7 [facility] [id number] [place] [address] 06 Jun, 2016 [facility] [place] [id number] [place] [address] May, [facility] [id number] [place] [address] May, Dyspnea on exertion R06.09 ; Coronary artery disease involving gambell coronary artery, angina presence unspecified, unspecified whether gambell or transplanted heart I25.10 and Arthritis M19.90 [facility] [id number] [place] [address] May, [facility] [id number] [place] [address] Apr, Arthritis M19.90 [facility] [id number] [place] [address] Apr, Arthritis M19.90 and Acute cystitis without [facility]uria N30.00 [facility] [address] [place] [address] Apr, [place] [place] [id number] [place] [address] Apr, Fibromyalgia M79.7 [facility] [id number] [place] [address] Apr, Arthritis M19.90 and Onychomycosis B35.1 [facility] [id number] [place] [address] Mar, [facility] [id number] [place] [address] Mar, Acute gout involving toe of right foot, unspecified cause M10.9 [facility] [address], [place] [address] Mar, [facility] [id number] [place] [address] Feb, [facility] [id number] [place] [address] Feb, [facility] [id number] [place] [address] Feb, Arthritis M19.90 [facility] [id number] [place] [address] Jan, [facility] [id number] [place] [address] Jan, [facility] [id number] [place] [address] Jan, [facility] [id number] [place] [address] 16 Jan, 2016 [facility] [id number] [place] [address] Jan, Coronary artery disease involving gambell coronary artery, angina presence unspecified, unspecified whether gambell or transplanted heart I25.10 ; Arthritis M19.90 and Edema, unspecified type R60.9 [facility] [id number] [place] [address] 07 Jan, 2016 [facility] [address] [place] [address] 06 Jan, 2016 [facility] [id number] [place] [address] Jan, Anxiety F41.9 and Depressive disorder, not elsewhere classified F32.9 [facility] [address], [place] [address] Dec, Dementia without behavioral disturbance, unspecified dementia type F03.90 and Reactive depression F32.9 [facility] [id number] [address] Dec, [facility] [place] [address], [place] [address] Dec, [place] [address], [place] [address] Nov, Depressive disorder, not elsewhere classified F32.9 and Anxiety F41.9 [facility] [address], [place] [address] Nov, Coronary artery disease involving gambell coronary artery, angina presence unspecified, unspecified whether gambell or transplanted heart I25.10 ; Fibromyalgia M79.7 ; Arthritis M19.90 ; Anxiety F41.9 ; Hyperlipidemia, unspecified hyperlipidemia type E78.5 and Barretts esophagus with dysplasia K22.719 [facility] [address], [place] [address] Nov, IMMUNIZATIONS No Known Immunizations SOCIAL HISTORY Never Assessed REASON FOR VISIT Prior Authorization Request PLAN OF CARE VITAL SIGNS MEDICATIONS Unknown [...]
--- OUTSIDE RECORDS SUMMARY | 2018-12-14 11:59 | XMS REPORT ---
Author Author DELMI BYRNES [facility] Address [address] [place] [address] Care Team Providers Care Vascular Nurse Name Role Phone DELMI BYRNES Unavailable PROBLEMS Type Condition ICD9-CM Code LXM44-FW Code Onset Dates Condition Status SNOMED Code Problem Lumbar radiculopathy M54.16 Active 442592263 Problem Chronic bronchitis, unspecified chronic bronchitis type J42 Active 80284059 Problem Chronic depression F32.9 Active 343794940 Problem Stress incontinence N39.3 Active 37799278 Problem Onychomycosis B35.1 Active 097937887 Problem Intractable cyclical vomiting with nausea G43.A1 Active 19552364 Problem Severe episode of recurrent major depressive disorder, without psychotic features F33.2 Active 76181465 Problem Stage 3 chronic kidney disease N18.3 Active 228840501 Problem Pseudobulbar affect F48.2 Active 81340116 Problem Coronary artery disease involving crow coronary artery, angina presence unspecified, unspecified whether crow or transplanted heart I25.10 Active 2438560414100 Problem Barretts esophagus with dysplasia K22.719 Active 3223456181445503 Problem Hyperlipidemia, unspecified hyperlipidemia type E78.5 Active 81592542 Problem Anxiety F41.9 Active 72256272 Problem Chronic kidney disease, stage 2 (mild) N18.2 Active 886353945 Problem Arthritis M19.90 Active 0406150 Problem Prediabetes R73.03 Active 752490885 Problem Fibromyalgia M79.7 Active 241648721 Problem Essential hypertension I10 Active 28298770 ALLERGIES No Information ENCOUNTERS Encounter Location Date Diagnosis [facility] [id number] [address] 08 Feb, 2018 [facility] [id number] [address] Jan, [facility] [id number] [place] [address] Jan, [place] [id number] [place] [address] Jan, Anxiety F41.9 [facility] [id number] [place] [address] Dec, Arthritis M19.90 [facility] [id number] [place] [address] Dec, Lumbar radiculopathy M54.16 ; Right ear pain H92.01 and Stress incontinence N39.3 [facility] [id number] [place] [address] Dec, Anxiety F41.9 [facility] [place] [id number] [place] [address] Nov, Prediabetes R73.03 ; Essential hypertension I10 ; Bilateral impacted cerumen H61.23 ; Severe episode of recurrent major depressive disorder, without psychotic features F33.2 and Lumbar radiculopathy M54.16 [facility] [id number] [place] [address] Oct, [place] [id number] [place] [address] Oct, Arthritis M19.90 [facility] [id number] [place] [address] Oct, Anxiety F41.9 and Arthritis M19.90 [place] [id number] [place] [address] Oct, Essential hypertension I10 ; Barretts esophagus with dysplasia K22.719 ; Pseudobulbar affect F48.2 ; Arthritis M19.90 ; Onychomycosis B35.1 and Stage 3 chronic kidney disease N18.3 [place] [id number] [place] [address] September, Arthritis M19.90 [place] [id number] [place] [address] September, [place] [address] [address] Aug, Essential hypertension I10 ; Lumbar radiculopathy M54.16 ; Anxiety F41.9 ; Intractable cyclical vomiting with nausea G43.A1 and Pseudobulbar affect F48.2 [place] [address] [address] Aug, Arthritis M19.90 [place] [address] [address] Jul, Intractable cyclical vomiting with nausea G43.A1 and Anxiety F41.9 [place] [address] [address] Jul, [place] [address] [address] Jul, Anxiety F41.9 and Arthritis M19.90 [place] [address] [address] Jul, Severe episode of recurrent major depressive disorder, without psychotic features F33.2 and Neurocognitive disorder R41.9 [facility] [id number] [place] [address] Jun, [place] [address] [address] Jun, Lumbar radiculopathy M54.16 ; Essential hypertension I10 ; Anxiety F41.9 and Chronic bronchitis, unspecified chronic bronchitis type J42 [place] [address] [address] 15 Jun, 2017 Anxiety F41.9 [place] [id number] [place] [address] 14 Jun, 2017 [place] [address] [address] 12 Jun, 2017 Arthritis M19.90 [facility] [address], [place] [address] 05 Jun, 2017 [facility] [id number] [place] [address] 05 Jun, 2017 [facility] [id number] [place] [address] May, [facility] [id number] [place] [address] May, [facility] [id number] [place] [address] May, HPV (human papilloma virus) infection B97.7 [facility] [id number] [place] [address] May, Anxiety F41.9 and Arthritis M19.90 [facility] [id number] [place] [address] 18 Apr, 2017 [facility] [id number] [place] [address] Apr, [facility] [address] [place] [address] 13 Apr, 2017 Colon cancer screening Z12.11 [facility] [address] [place] [address] Apr, [facility] [address] [place] [address] Apr, [facility] [id number] [place] [address] 07 Apr, 2017 Arthritis M19.90 and Anxiety F41.9 [facility] [address], [place] [address] 30 Mar, 2017 Well woman exam Z01.419 and Colon cancer screening Z12.11 [facility] [id number] [place] [address] 14 Mar, 2017 [place] [address] [address] 13 Mar, 2017 Anxiety F41.9 and Arthritis M19.90 [place] [address] [address] 19 Feb, 2017 Encounter for immunization Z23 ; Essential hypertension I10 ; Lumbar radiculopathy M54.16 ; Chronic depression F32.9 ; Routine adult health maintenance Z00.00 and Chronic bronchitis, unspecified chronic bronchitis type J42 [place] [address] [address] 16 Feb, 2017 Arthritis M19.90 and Anxiety F41.9 [place] [address] [address] 18 Jan, 2017 Arthritis M19.90 and Anxiety F41.9 [place] [address] [address] 18 Dec, 2016 Arthritis M19.90 and Anxiety F41.9 [place] [address] [address] Dec, Lumbar radiculopathy M54.16 and Chronic depression F32.9 [facility] [id number] [place] [address] Dec, [place] [id number] [place] [address] Dec, Foot drop, right foot M21.371 ; Coronary artery disease involving crow coronary artery, angina presence unspecified, unspecified whether crow or transplanted heart I25.10 and Depressive disorder, not elsewhere classified F32.9 [facility] [id number] [place] [address] Nov, Arthritis M19.90 [place] [address] [address] Nov, [facility] [id number] [place] [address] Oct, [facility] [id number] [place] [address] Oct, Essential hypertension I10 ; Anxiety F41.9 ; Arthritis M19.90 and Fibromyalgia M79.7 [facility] [address] [address] September, Anxiety F41.9 [place] [id number] [place] [address] September, Arthritis M19.90 [place] [address] [address] Aug, Dental examination Z01.20 [place] [address] [address] Aug, Anxiety F41.9 [facility] [id number] [place] [address] Aug, [facility] [id number] [place] [address] Aug, Anxiety F41.9 [place] [id number] [place] [address] Aug, Essential hypertension I10 and Arthritis M19.90 [facility] [id number] [place] [address] Aug, Depressive disorder, not elsewhere classified F32.9 [facility] [id number] [place] [address] Jul, Abrasion, unspecified lesser toe(s), sequela S90.416S and Local infection of the skin and subcutaneous tissue, unspecified L08.9 [facility] [id number] [place] [address] Jul, Prediabetes R73.03 and Essential hypertension I10 [facility] [address] [place] [address] 20 Jul, 2016 Abnormal glucose level R73.09 [facility] [id number] [id number] Jul, [facility] [address], [place] [address] 17 Jul, 2016 Abnormal glucose level R73.09 [facility] [address] [place] [address] 16 Jul, 2016 Fibromyalgia M79.7 ; Arthritis M19.90 ; Chronic kidney disease, stage 2 (mild) N18.2 and Depressive disorder, not elsewhere classified F32.9 [facility] [address] [place] [address] Jul, [facility] [id number] [place] [address] Jul, [facility] [address] [place] [address] Jul, [facility] [id number] [place] [address] Jul, Arthritis M19.90 ; Depressive disorder, not elsewhere classified F32.9 ; Fibromyalgia M79.7 and Constipation, unspecified constipation type K59.00 [facility] [address], [place] [address] 15 Jun, 2016 Anxiety F41.9 [facility] [address] [place] [address] 14 Jun, 2016 Anxiety F41.9 and Fibromyalgia M79.7 [facility] [address] [place] [address] 11 Jun, 2016 [facility] [address] [place] [address] 10 Jun, 2016 Arthritis M19.90 ; Depressive disorder, not elsewhere classified F32.9 ; Barretts esophagus with dysplasia K22.719 ; Edema, unspecified type R60.9 and Fibromyalgia M79.7 [facility] [id number] [place] [address] Jun, [place] [id number] [place] [address] May, [place] [address] [address] May, Dyspnea on exertion R06.09 ; Coronary artery disease involving crow coronary artery, angina presence unspecified, unspecified whether crow or transplanted heart I25.10 and Arthritis M19.90 [facility] [id number] [place] [address] May, [place] [id number] [place] [address] Apr, Arthritis M19.90 [facility] [id number] [place] [address] Apr, Arthritis M19.90 and Acute cystitis without hematuria N30.00 [facility] [address] [place] [address] Apr, [place] [id number] [place] [address] Apr, Fibromyalgia M79.7 [place] [id number] [place] [address] Apr, Arthritis M19.90 and Onychomycosis B35.1 [facility] [id number] [place] [address] Mar, [place] [id number] [place] [address] Mar, Acute gout involving toe of right foot, unspecified cause M10.9 [facility] [place] [id number] [place] [address] Mar, [facility] [address], [place] [address] Feb, [facility] [id number] [place] [address] Feb, [facility] [id number] [place] [address] Feb, Arthritis M19.90 [facility] [id number] [place] [address] 23 Jan, 2016 [facility] [id number] [place] [address] Jan, [facility] [id number] [place] [address] Jan, [facility] [id number] [place] [address] Jan, [facility] [id number] [place] [address] Jan, Coronary artery disease involving crow coronary artery, angina presence unspecified, unspecified whether crow or transplanted heart I25.10 ; Arthritis M19.90 and Edema, unspecified type R60.9 [facility] [address] [place] [address] Jan, [facility] [address] [place] [address] Jan, [facility] [id number] [place] [address] Jan, Anxiety F41.9 and Depressive disorder, not elsewhere classified F32.9 [facility] [id number] [place] [address] Dec, Dementia without behavioral disturbance, unspecified dementia type F03.90 and Reactive depression F32.9 [facility] [id number] [place] [address] Dec, [place] [address] [facility] [id number] [address] Dec, [facility] [id number], [place] [address] Nov, Depressive disorder, not elsewhere classified F32.9 and Anxiety F41.9 [facility] [id number], [place] [address] Nov, Coronary artery disease involving crow coronary artery, angina presence unspecified, unspecified whether crow or transplanted heart I25.10 ; Fibromyalgia M79.7 ; Arthritis M19.90 ; Anxiety F41.9 ; Hyperlipidemia, unspecified hyperlipidemia type E78.5 and Barretts esophagus with dysplasia K22.719 [facility] [place] [id number], [place] [address] Nov, IMMUNIZATIONS No Known Immunizations SOCIAL HISTORY Never Assessed REASON FOR VISIT Refill request PLAN OF CARE VITAL SIGNS MEDICATIONS Unknown [...]
--- OUTSIDE RECORDS SUMMARY | 2018-12-14 11:59 | XMS REPORT ---
Author Author DELMI BYRNES [facility] Address [address] [place] [address] Care Team Providers Care Showroom Consultant Name Role Phone DELMI BYRNES Unavailable PROBLEMS Type Condition ICD9-CM Code RNZ59-AP Code Onset Dates Condition Status SNOMED Code Problem Lumbar radiculopathy M54.16 Active 513043675 Problem Chronic bronchitis, unspecified chronic bronchitis type J42 Active 81934749 Problem Chronic depression F32.9 Active 105073270 Problem Stress incontinence N39.3 Active 97716629 Problem Onychomycosis B35.1 Active 345174269 Problem Intractable cyclical vomiting with nausea G43.A1 Active 33325936 Problem Severe episode of recurrent major depressive disorder, without psychotic features F33.2 Active 61552049 Problem Stage 3 chronic kidney disease N18.3 Active 631544883 Problem Pseudobulbar affect F48.2 Active 64443135 Problem Coronary artery disease involving [place] coronary artery, angina presence unspecified, unspecified whether [place] or transplanted heart I25.10 Active 9705761305083 Problem Barretts esophagus with dysplasia K22.719 Active 3907014962141861 Problem Hyperlipidemia, unspecified hyperlipidemia type E78.5 Active 48979026 Problem Anxiety F41.9 Active 45387121 Problem Chronic kidney disease, stage 2 (mild) N18.2 Active 640654403 Problem Arthritis M19.90 Active 3216556 Problem Prediabetes R73.03 Active 555906482 Problem Fibromyalgia M79.7 Active 178886386 Problem Essential hypertension I10 Active 60329133 ALLERGIES No Information ENCOUNTERS Encounter Location Date Diagnosis [facility] [id number] [address] Jan, [facility] [id number] [address] Jan, [facility] [id number] [place] [address] Jan, Anxiety F41.9 [facility] [id number] [place] [address] Dec, Arthritis M19.90 [facility] [facility] [address] [address] Dec, Lumbar radiculopathy M54.16 ; Right ear pain H92.01 and Stress incontinence N39.3 [facility] [id number] [place] [address] Dec, Anxiety F41.9 [facility] [facility] [address] [address] Nov, Prediabetes R73.03 ; Essential hypertension I10 ; Bilateral impacted cerumen H61.23 ; Severe episode of recurrent major depressive disorder, without psychotic features F33.2 and Lumbar radiculopathy M54.16 [facility] [id number] [place] [address] Oct, [facility] [facility] [id number] [place] [address] Oct, Arthritis M19.90 [facility] [id number] [place] [address] Oct, Anxiety F41.9 and Arthritis M19.90 [facility] [id number] [place] [address] Oct, Essential hypertension I10 ; Barretts esophagus with dysplasia K22.719 ; Pseudobulbar affect F48.2 ; Arthritis M19.90 ; Onychomycosis B35.1 and Stage 3 chronic kidney disease N18.3 [facility] [id number] [place] [address] September, Arthritis M19.90 [facility] [id number] [place] [address] September, [facility] [id number] [place] [address] Aug, Essential hypertension I10 ; Lumbar radiculopathy M54.16 ; Anxiety F41.9 ; Intractable cyclical vomiting with nausea G43.A1 and Pseudobulbar affect F48.2 [address] [address] [address] Aug, Arthritis M19.90 [address] [place] [address] [address] Jul, Intractable cyclical vomiting with nausea G43.A1 and Anxiety F41.9 [facility] [address] [address] Jul, [facility] [address] [address] Jul, Anxiety F41.9 and Arthritis M19.90 [facility] [address] [address] Jul, Severe episode of recurrent major depressive disorder, without psychotic features F33.2 and Neurocognitive disorder R41.9 [facility] [address] [address] Jun, [facility] [id number] [place] [address] Jun, Lumbar radiculopathy M54.16 ; Essential hypertension I10 ; Anxiety F41.9 and Chronic bronchitis, unspecified chronic bronchitis type J42 [facility] [id number] [place] [address] 15 Jun, 2017 Anxiety F41.9 [address] [place] [address] [address] 14 Jun, 2017 [facility] [id number] [place] [address] Jun, Arthritis M19.90 [address] [address] 05 Jun, 2017 [facility] [id number] [place] [address] 05 Jun, 2017 [facility] [id number] [place] [address] 18 May, 2017 [facility] [id number] [place] [address] 16 May, 2017 [facility] [id number] [place] [address] 10 May, 2017 HPV (human papilloma virus) infection B97.7 [facility] [id number] [place] [address] 02 May, 2017 Anxiety F41.9 and Arthritis M19.90 [facility] [id number] [place] [address] 18 Apr, 2017 [facility] [id number] [place] [address] 15 Apr, 2017 [facility] [id number] [place] [address] 13 Apr, 2017 Colon cancer screening Z12.11 [facility] [address] [place] [address] 11 Apr, 2017 [facility] [id number] [place] [address] Apr, [facility] [id number] [place] [address] 07 Apr, 2017 Arthritis M19.90 and Anxiety F41.9 [facility] [id number] [place] [address] 30 Mar, 2017 Well woman exam Z01.419 and Colon cancer screening Z12.11 [facility] [id number] [place] [address] 14 Mar, 2017 [place] [facility] [id number] [place] [address] 13 Mar, 2017 Anxiety F41.9 and Arthritis M19.90 [facility] [address] [address] 19 Feb, 2017 Encounter for immunization Z23 ; Essential hypertension I10 ; Lumbar radiculopathy M54.16 ; Chronic depression F32.9 ; Routine adult health maintenance Z00.00 and Chronic bronchitis, unspecified chronic bronchitis type J42 [facility] [facility] [id number] [place] [address] 16 Feb, 2017 Arthritis M19.90 and Anxiety F41.9 [address] [address] [address] Jan, Arthritis M19.90 and Anxiety F41.9 [facility] [address] [address] Dec, Arthritis M19.90 and Anxiety F41.9 [facility] [id number] [place] [address] Dec, Lumbar radiculopathy M54.16 and Chronic depression F32.9 [facility] [id number] [place] [address] Dec, [facility] [id number] [place] [address] Dec, Foot drop, right foot M21.371 ; Coronary artery disease involving [place] coronary artery, angina presence unspecified, unspecified whether [place] or transplanted heart I25.10 and Depressive disorder, not elsewhere classified F32.9 [facility] [facility] [id number] [place] [address] Nov, Arthritis M19.90 [facility] [facility] [id number] [place] [address] Nov, [facility] [facility] [id number] [place] [address] Oct, [facility] [id number] [place] [address] Oct, Essential hypertension I10 ; Anxiety F41.9 ; Arthritis M19.90 and Fibromyalgia M79.7 [facility] [id number] [place] [address] September, Anxiety F41.9 [address] [place] [address] [address] September, Arthritis M19.90 [address] [address] [address] Aug, Dental examination Z01.20 [facility] [id number] [place] [address] Aug, Anxiety F41.9 [address] [address] [address] Aug, [facility] [facility] [id number] [place] [address] Aug, Anxiety F41.9 [address] [address] [address] Aug, Essential hypertension I10 and Arthritis M19.90 [facility] [id number] [place] [address] Aug, Depressive disorder, not elsewhere classified F32.9 [facility] [id number] [place] [address] Jul, Abrasion, unspecified lesser toe(s), sequela S90.416S and Local infection of the skin and subcutaneous tissue, unspecified L08.9 [facility] [facility] [id number] [place] [address] Jul, Prediabetes R73.03 and Essential hypertension I10 [place] [address] [address] Jul, Abnormal glucose level R73.09 [facility] [address] [id number] [id number] Jul, [facility] [address], [place] [address] Jul, Abnormal glucose level R73.09 [facility] [address], [place] [address] Jul, Fibromyalgia M79.7 ; Arthritis M19.90 ; Chronic kidney disease, stage 2 (mild) N18.2 and Depressive disorder, not elsewhere classified F32.9 [facility] [address] [place] [address] Jul, [facility] [address], [place] [address] Jul, [facility] [address] [place] [address] Jul, [facility] [address] [address] Jul, Arthritis M19.90 ; Depressive disorder, not elsewhere classified F32.9 ; Fibromyalgia M79.7 and Constipation, unspecified constipation type K59.00 [facility] [address], [place] [address] 15 Jun, 2016 Anxiety F41.9 [facility] [address] [place] [address] 14 Jun, 2016 Anxiety F41.9 and Fibromyalgia M79.7 [facility] [address], [place] [address] Jun, [facility] [address] [place] [address] 10 Jun, 2016 Arthritis M19.90 ; Depressive disorder, not elsewhere classified F32.9 ; Barretts esophagus with dysplasia K22.719 ; Edema, unspecified type R60.9 and Fibromyalgia M79.7 [facility] [place], [place] [address] Jun, [facility] [id number] [place] [address] May, [facility] [address] [place] [address] May, Dyspnea on exertion R06.09 ; Coronary artery disease involving [place] coronary artery, angina presence unspecified, unspecified whether [place] or transplanted heart I25.10 and Arthritis M19.90 [facility] [address] [place] [address] May, [facility] [id number] [place] [address] Apr, Arthritis M19.90 [facility] [id number] [place] [address] Apr, Arthritis M19.90 and Acute cystitis without hematuria N30.00 [facility] [address] [place] [address] Apr, [facility] [id number] [place] [address] Apr, Fibromyalgia M79.7 [facility] [address] [place] [address] Apr, Arthritis M19.90 and Onychomycosis B35.1 [facility] [address] [address] Mar, [facility] [address] [place] [address] Mar, Acute gout involving toe of right foot, unspecified cause M10.9 [facility] [address] [address] Mar, [facility] [address] [place] [address] Feb, [facility] [address], [place] [address] Feb, [facility] [id number] [place] [address] Feb, Arthritis M19.90 [facility] [address] [place] [address] Jan, [facility] [id number] [place] [address] Jan, [facility] [id number] [place] [address] Jan, [facility] [id number] [place] [address] Jan, [facility] [id number] [place] [address] Jan, Coronary artery disease involving [place] coronary artery, angina presence unspecified, unspecified whether [place] or transplanted heart I25.10 ; Arthritis M19.90 and Edema, unspecified type R60.9 [facility] [id number] [place] [address] Jan, [facility] [id number] [place] [address] Jan, [facility] [address] [place] [address] Jan, Anxiety F41.9 and Depressive disorder, not elsewhere classified F32.9 [facility] [address] [address] Dec, Dementia without behavioral disturbance, unspecified dementia type F03.90 and Reactive depression F32.9 [facility] [address], [place] [address] Dec, [facility] [address] [place] [address] Dec, [id number] [facility] [id number] [place] [address] Nov, Depressive disorder, not elsewhere classified F32.9 and Anxiety F41.9 [place] [address] [facility] [id number] [address] Nov, Coronary artery disease involving [place] coronary artery, angina presence unspecified, unspecified whether [place] or transplanted heart I25.10 ; Fibromyalgia M79.7 ; Arthritis M19.90 ; Anxiety F41.9 ; Hyperlipidemia, unspecified hyperlipidemia type E78.5 and Barretts esophagus with dysplasia K22.719 [place] [address] [facility] [id number] [address] Nov, IMMUNIZATIONS No Known Immunizations SOCIAL HISTORY Never Assessed REASON FOR VISIT Controlled refill PLAN OF CARE VITAL SIGNS MEDICATIONS Medication Instructions Dosage Frequency Start Date End Date Duration Status Oxycodone HCl 5 mg Orally every 6 hrs, prn pain 1 tablet Dec, Active RESULTS No Results PROCEDURES No Known [...]
--- OUTSIDE RECORDS SUMMARY | 2018-12-14 11:59 | XMS REPORT ---
Author Author DELMI BYRNES [facility] Address [address] [place] [address] Care Team Providers Care Marketing Agent Name Role Phone DELMI BYRNES Unavailable PROBLEMS Type Condition ICD9-CM Code SRO47-FH Code Onset Dates Condition Status SNOMED Code Problem Lumbar radiculopathy M54.16 Active 452874641 Problem Chronic bronchitis, unspecified chronic bronchitis type J42 Active 13911778 Problem Chronic depression F32.9 Active 169984576 Problem Stress incontinence N39.3 Active 93696313 Problem Onychomycosis B35.1 Active 913657307 Problem Intractable cyclical vomiting with nausea G43.A1 Active 51106378 Problem Severe episode of recurrent major depressive disorder, without psychotic features F33.2 Active 36224754 Problem Stage 3 chronic kidney disease N18.3 Active 290206042 Problem Pseudobulbar affect F48.2 Active 41438571 Problem Coronary artery disease involving kootenai coronary artery, angina presence unspecified, unspecified whether kootenai or transplanted heart I25.10 Active 9592316749023 Problem Barretts esophagus with dysplasia K22.719 Active 3712727596325048 Problem Hyperlipidemia, unspecified hyperlipidemia type E78.5 Active 52856283 Problem Anxiety F41.9 Active 84887514 Problem Chronic kidney disease, stage 2 (mild) N18.2 Active 432792236 Problem Arthritis M19.90 Active 0406311 Problem Prediabetes R73.03 Active 198020487 Problem Fibromyalgia M79.7 Active 657056629 Problem Essential hypertension I10 Active 42889049 ALLERGIES No Information ENCOUNTERS Encounter Location Date Diagnosis [facility] [id number] [address] 08 Feb, 2018 [facility] [id number] [address] Jan, [facility] [id number] [place] [address] Jan, [place] [id number] [place] [address] Jan, Anxiety F41.9 [place] [id number] [place] [address] Dec, Arthritis M19.90 [facility] [id number] [place] [address] Dec, Lumbar radiculopathy M54.16 ; Right ear pain H92.01 and Stress incontinence N39.3 [place] [id number] [place] [address] Dec, Anxiety F41.9 [place] [id number] [place] [address] Nov, Prediabetes R73.03 ; Essential hypertension I10 ; Bilateral impacted cerumen H61.23 ; Severe episode of recurrent major depressive disorder, without psychotic features F33.2 and Lumbar radiculopathy M54.16 [place] [id number] [place] [address] Oct, [place] [id number] [place] [address] Oct, Arthritis M19.90 [facility] [id number] [place] [address] Oct, Anxiety F41.9 and Arthritis M19.90 [place] [id number] [place] [address] Oct, Essential hypertension I10 ; Barretts esophagus with dysplasia K22.719 ; Pseudobulbar affect F48.2 ; Arthritis M19.90 ; Onychomycosis B35.1 and Stage 3 chronic kidney disease N18.3 [place] [id number] [place] [address] September, Arthritis M19.90 [place] [id number] [place] [address] September, [address] [address] [address] Aug, Essential hypertension I10 ; Lumbar radiculopathy M54.16 ; Anxiety F41.9 ; Intractable cyclical vomiting with nausea G43.A1 and Pseudobulbar affect F48.2 [address] [address] [address] Aug, Arthritis M19.90 [address] [address] [address] Jul, Intractable cyclical vomiting with nausea G43.A1 and Anxiety F41.9 [address] [address] [address] Jul, [address] [address] Jul, Anxiety F41.9 and Arthritis M19.90 [place] [address] [address] Jul, Severe episode of recurrent major depressive disorder, without psychotic features F33.2 and Neurocognitive disorder R41.9 [place] [id number] [place] [address] Jun, [address] [address] [address] Jun, Lumbar radiculopathy M54.16 ; Essential hypertension I10 ; Anxiety F41.9 and Chronic bronchitis, unspecified chronic bronchitis type J42 [place] [address] [address] 15 Jun, 2017 Anxiety F41.9 [place] [id number] [place] [address] 14 Jun, 2017 [address] [address] [address] 12 Jun, 2017 Arthritis M19.90 [facility] [address] [address] 05 Jun, 2017 [facility] [id number] [place] [address] 05 Jun, 2017 [facility] [id number] [place] [address] May, [facility] [id number] [place] [address] May, [facility] [id number] [place] [address] May, HPV (human papilloma virus) infection B97.7 [facility] [id number] [place] [address] May, Anxiety F41.9 and Arthritis M19.90 [facility] [id number] [place] [address] 18 Apr, 2017 [facility] [id number] [place] [address] Apr, [facility] [id number] [place] [address] 13 Apr, 2017 Colon cancer screening Z12.11 [facility] [id number] [place] [address] Apr, [facility] [id number] [place] [address] Apr, [facility] [id number] [place] [address] 07 Apr, 2017 Arthritis M19.90 and Anxiety F41.9 [facility] [address] [address] 30 Mar, 2017 Well woman exam Z01.419 and Colon cancer screening Z12.11 [facility] [id number] [place] [address] 14 Mar, 2017 [address] [address] [address] 13 Mar, 2017 Anxiety F41.9 and Arthritis M19.90 [place] [address] [address] 19 Feb, 2017 Encounter for immunization Z23 ; Essential hypertension I10 ; Lumbar radiculopathy M54.16 ; Chronic depression F32.9 ; Routine adult health maintenance Z00.00 and Chronic bronchitis, unspecified chronic bronchitis type J42 [place] [address] [address] 16 Feb, 2017 Arthritis M19.90 and Anxiety F41.9 [place] [address] [address] 18 Jan, 2017 Arthritis M19.90 and Anxiety F41.9 [address] [address] [address] 18 Dec, 2016 Arthritis M19.90 and Anxiety F41.9 [place] [address] [address] Dec, Lumbar radiculopathy M54.16 and Chronic depression F32.9 [place] [id number] [place] [address] Dec, [place] [id number] [place] [address] Dec, Foot drop, right foot M21.371 ; Coronary artery disease involving kootenai coronary artery, angina presence unspecified, unspecified whether k[place]ai or transplanted heart I25.10 and Depressive disorder, not elsewhere classified F32.9 [place] [id number] [place] [address] Nov, Arthritis M19.90 [place] [address] [address] Nov, [facility] [id number] [place] [address] Oct, [facility] [id number] [place] [address] Oct, Essential hypertension I10 ; Anxiety F41.9 ; Arthritis M19.90 and Fibromyalgia M79.7 [facility] [address] [address] September, Anxiety F41.9 [place] [id number] [place] [address] September, Arthritis M19.90 [place] [address] [address] Aug, Dental examination Z01.20 [place] [address] [address] Aug, Anxiety F41.9 [place] [id number] [place] [address] Aug, [facility] [id number] [place] [address] Aug, Anxiety F41.9 [place] [id number] [place] [address] Aug, Essential hypertension I10 and Arthritis M19.90 [place] [id number] [place] [address] Aug, Depressive disorder, not elsewhere classified F32.9 [facility] [id number] [place] [address] Jul, Abrasion, unspecified lesser toe(s), sequela S90.416S and Local infection of the skin and subcutaneous tissue, unspecified L08.9 [facility] [id number] [place] [address] Jul, Prediabetes R73.03 and Essential hypertension I10 [facility] [address] [address] 20 Jul, 2016 Abnormal glucose level R73.09 [facility] [id number] [id number] Jul, [facility] [address] [address] 17 Jul, 2016 Abnormal glucose level R73.09 [facility] [id number] [place] [address] 16 Jul, 2016 Fibromyalgia M79.7 ; Arthritis M19.90 ; Chronic kidney disease, stage 2 (mild) N18.2 and Depressive disorder, not elsewhere classified F32.9 [facility] [id number] [place] [address] Jul, [facility] [id number] [place] [address] Jul, [facility] [id number] [place] [address] Jul, [facility] [id number] [place] [address] Jul, Arthritis M19.90 ; Depressive disorder, not elsewhere classified F32.9 ; Fibromyalgia M79.7 and Constipation, unspecified constipation type K59.00 [facility] [address] [address] 15 Jun, 2016 Anxiety F41.9 [facility] [id number] [place] [address] 14 Jun, 2016 Anxiety F41.9 and Fibromyalgia M79.7 [facility] [id number] [place] [address] 11 Jun, 2016 [facility] [address] [place] [address] 10 Jun, 2016 Arthritis M19.90 ; Depressive disorder, not elsewhere classified F32.9 ; Barretts esophagus with dysplasia K22.719 ; Edema, unspecified type R60.9 and Fibromyalgia M79.7 [place] [id number] [place] [address] Jun, [place] [id number] [place] [address] May, [place] [address] [address] May, Dyspnea on exertion R06.09 ; Coronary artery disease involving [place] coronary artery, angina presence unspecified, unspecified whether k[place] or transplanted heart I25.10 and Arthritis M19.90 [place] [id number] [place] [address] May, [place] [id number] [place] [address] Apr, Arthritis M19.90 [place] [id number] [place] [address] Apr, Arthritis M19.90 and Acute cystitis without hematuria N30.00 [facility] [address] [place] [address] Apr, [place] [id number] [place] [address] Apr, Fibromyalgia M79.7 [place] [id number] [place] [address] Apr, Arthritis M19.90 and Onychomycosis B35.1 [place] [id number] [place] [address] Mar, [place] [id number] [place] [address] Mar, Acute gout involving toe of right foot, unspecified cause M10.9 [place] [id number] [place] [address] Mar, [facility] [address] [address] Feb, [facility] [id number] [place] [address] Feb, [facility] [id number] [place] [address] Feb, Arthritis M19.90 [facility] [id number] [place] [address] 23 Jan, 2016 [facility] [id number] [place] [address] Jan, [facility] [id number] [place] [address] Jan, [facility] [id number] [place] [address] Jan, [facility] [id number] [place] [address] Jan, Coronary artery disease involving k[place]enai coronary artery, angina presence unspecified, unspecified whether kootenai or transplanted heart I25.10 ; Arthritis M19.90 and Edema, unspecified type R60.9 [facility] [address] [place] [address] Jan, [facility] [id number] [place] [address] Jan, [facility] [id number] [place] [address] Jan, Anxiety F41.9 and Depressive disorder, not elsewhere classified F32.9 [facility] [id number] [place] [address] Dec, Dementia without behavioral disturbance, unspecified dementia type F03.90 and Reactive depression F32.9 [facility] [id number] [place] [address] Dec, [address] [facility] [id number] [address] Dec, [facility] [id number] [address] Nov, Depressive disorder, not elsewhere classified F32.9 and Anxiety F41.9 [place] [address] [facility] [id number] [address] Nov, Coronary artery disease involving [place] coronary artery, angina presence unspecified, unspecified whether [place] or transplanted heart I25.10 ; Fibromyalgia M79.7 ; Arthritis M19.90 ; Anxiety F41.9 ; Hyperlipidemia, unspecified hyperlipidemia type E78.5 and Barretts esophagus with dysplasia K22.719 [place] [address] [facility] [id number] [address] Nov, IMMUNIZATIONS No Known Immunizations SOCIAL HISTORY Never Assessed REASON FOR VISIT Controlled Med Refill 01/18 PLAN OF CARE VITAL SIGNS MEDICATIONS Medication [...]
--- OUTSIDE RECORDS SUMMARY | 2018-12-14 11:59 | XMS REPORT ---
Author Author DELMI BYRNES [facility] Address [address] [place] [address] Care Team Providers Care Strip Machine Operator Name Role Phone DELMI BYRNES Unavailable PROBLEMS Type Condition ICD9-CM Code EAB36-AV Code Onset Dates Condition Status SNOMED Code Problem Lumbar radiculopathy M54.16 Active 917575603 Problem Chronic bronchitis, unspecified chronic bronchitis type J42 Active 51370390 Problem Chronic depression F32.9 Active 152888706 Problem Stress incontinence N39.3 Active 67310770 Problem Onychomycosis B35.1 Active 262929854 Problem Intractable cyclical vomiting with nausea G43.A1 Active 01520142 Problem Severe episode of recurrent major depressive disorder, without psychotic features F33.2 Active 26872170 Problem Stage 3 chronic kidney disease N18.3 Active 339240806 Problem Pseudobulbar affect F48.2 Active 65302288 Problem Coronary artery disease involving [place] coronary artery, angina presence unspecified, unspecified whether [place] or transplanted heart I25.10 Active 4818222358271 Problem Barretts esophagus with dysplasia K22.719 Active 1338514919205897 Problem Hyperlipidemia, unspecified hyperlipidemia type E78.5 Active 92615532 Problem Anxiety F41.9 Active 30660626 Problem Chronic kidney disease, stage 2 (mild) N18.2 Active 558986999 Problem Arthritis M19.90 Active 3575906 Problem Prediabetes R73.03 Active 495711034 Problem Fibromyalgia M79.7 Active 636158756 Problem Essential hypertension I10 Active 64183236 ALLERGIES No Information ENCOUNTERS Encounter Location Date Diagnosis [facility] [id number] [address] Jan, [facility] [id number] [address] Jan, [facility] [id number] [place] [address] Jan, Anxiety F41.9 [place] [id number] [place] [address] Dec, Arthritis M19.90 [place] [address] [address] Dec, Lumbar radiculopathy M54.16 ; Right ear pain H92.01 and Stress incontinence N39.3 [place] [id number] [place] [address] Dec, Anxiety F41.9 [place] [address] [address] Nov, Prediabetes R73.03 ; Essential hypertension I10 ; Bilateral impacted cerumen H61.23 ; Severe episode of recurrent major depressive disorder, without psychotic features F33.2 and Lumbar radiculopathy M54.16 [place] [id number] [place] [address] Oct, [place] [id number] [place] [address] Oct, Arthritis M19.90 [place] [id number] [place] [phone] Oct, Anxiety F41.9 and Arthritis M19.90 [place] [id number] [place] [address] Oct, Essential hypertension I10 ; Barretts esophagus with dysplasia K22.719 ; Pseudobulbar affect F48.2 ; Arthritis M19.90 ; Onychomycosis B35.1 and Stage 3 chronic kidney disease N18.3 [place] [id number] [place] [address] September, Arthritis M19.90 [place] [id number] [place] [address] September, [place] [id number] [place] [address] Aug, Essential hypertension I10 ; Lumbar radiculopathy M54.16 ; Anxiety F41.9 ; Intractable cyclical vomiting with nausea G43.A1 and Pseudobulbar affect F48.2 [place] [address] [address] Aug, Arthritis M19.90 [address] [address] [address] Jul, Intractable cyclical vomiting with nausea G43.A1 and Anxiety F41.9 [place] [address] [address] Jul, [place] [address] [address] Jul, Anxiety F41.9 and Arthritis M19.90 [place] [address] [address] Jul, Severe episode of recurrent major depressive disorder, without psychotic features F33.2 and Neurocognitive disorder R41.9 [place] [address] [address] Jun, [place] [id number] [place] [address] Jun, Lumbar radiculopathy M54.16 ; Essential hypertension I10 ; Anxiety F41.9 and Chronic bronchitis, unspecified chronic bronchitis type J42 [place] [id number] [place] [address] 15 Jun, 2017 Anxiety F41.9 [place] [address] [address] 14 Jun, 2017 [place] [id number] [place] [address] Jun, Arthritis M19.90 [place] [address] [address] 05 Jun, 2017 [facility] [id number] [place] [address] 05 Jun, 2017 [facility] [id number] [place] [address] 18 May, 2017 [facility] [id number] [place] [address] 16 May, 2017 [facility] [id number] [place] [address] 10 May, 2017 HPV (human papilloma virus) infection B97.7 [facility] [id number] [place] [address] 02 May, 2017 Anxiety F41.[address] [facility] [id number] [place] [address] 18 Apr, 2017 [facility] [id number] [place] [address] 15 Apr, 2017 [facility] [id number] [place] [address] 13 Apr, 2017 Colon cancer screening Z12.11 [facility] [address] [place] [address] 11 Apr, 2017 [facility] [id number] [place] [address] Apr, [facility] [id number] [place] [address] 07 Apr, 2017 Arthritis M19.[address] [facility] [id number] [place] [address] 30 Mar, 2017 Well woman exam Z01.419 and Colon cancer screening Z12.11 [facility] [id number] [place] [address] 14 Mar, 2017 [address] [id number] [place] [address] 13 Mar, 2017 Anxiety F41.9 and Arthritis M19.90 [place] [address] [address] 19 Feb, 2017 Encounter for immunization Z23 ; Essential hypertension I10 ; Lumbar radiculopathy M54.16 ; Chronic depression F32.9 ; Routine adult health maintenance Z00.00 and Chronic bronchitis, unspecified chronic bronchitis type J42 [place] [id number] [place] [address] 16 Feb, 2017 Arthritis M19.90 and Anxiety F41.9 [place] [address] [address] Jan, Arthritis M19.90 and Anxiety F41.9 [place] [address] [address] Dec, Arthritis M19.90 and Anxiety F41.9 [place] [id number] [place] [address] Dec, Lumbar radiculopathy M54.16 and Chronic depression F32.9 [place] [id number] [place] [address] Dec, [place] [id number] [place] [address] Dec, Foot drop, right foot M21.371 ; Coronary artery disease involving [place] coronary artery, angina presence unspecified, unspecified whether [place] or transplanted heart I25.10 and Depressive disorder, not elsewhere classified F32.9 [place] [id number] [place] [address] Nov, Arthritis M19.90 [place] [id number] [place] [address] Nov, [place] [id number] [place] [address] Oct, [facility] [id number] [place] [address] Oct, Essential hypertension I10 ; Anxiety F41.9 ; Arthritis M19.[address] [facility] [id number] [place] [address] September, Anxiety F41.9 [place] [address] [address] September, Arthritis M19.90 [place] [address] [address] Aug, Dental examination Z01.20 [place] [id number] [place] [address] Aug, Anxiety F41.9 [place] [address] [address] Aug, [place] [id number] [place] [address] Aug, Anxiety F41.9 [place] [address] [address] Aug, Essential hypertension I10 and Arthritis M19.90 [place] [id number] [place] [address] Aug, Depressive disorder, not elsewhere classified F32.9 [place] [id number] [place] [address] Jul, Abrasion, unspecified lesser toe(s), sequela S90.416S and Local infection of the skin and subcutaneous tissue, unspecified L08.9 [place] [id number] [place] [address] Jul, Prediabetes R73.03 and Essential hypertension I10 [place] [address] [address] Jul, Abnormal glucose level R73.09 [facility] [address] [id number] [id number] Jul, [facility] [address], [place] [address] Jul, Abnormal glucose level R73.09 [facility] [address], [place] [address] Jul, Fibromyalgia M79.7 ; Arthritis M19.90 ; Chronic kidney disease, stage 2 (mild) N18.2 and Depressive disorder, not elsewhere classified F32.9 [facility] [address] [place] [address] Jul, [facility] [address], [place] [address] Jul, [facility] [address] [place] [address] Jul, [facility] [address], [place] [address] Jul, Arthritis M19.90 ; Depressive disorder, not elsewhere classified F32.9 ; Fibromyalgia M79.7 and Constipation, unspecified constipation type K59.00 [facility] [address], [place] [address] 15 Jun, [address] [facility] [address] [place] [address] 14 Jun, 2016 Anxiety F41.[address] [facility] [address], [place] [address] Jun, [facility] [address] [place] [address] 10 Jun, 2016 Arthritis M19.90 ; Depressive disorder, not elsewhere classified F32.9 ; Barretts esophagus with dysplasia K22.719 ; Edema, unspecified type R60.9 and Fibromyalgia M79.7 [place] [address], [place] [address] Jun, [facility] [id number] [place] [address] May, [facility] [address] [place] [address] May, Dyspnea on exertion R06.09 ; Coronary artery disease involving [place] coronary artery, angina presence unspecified, unspecified whether [place] or transplanted heart I25.[address] [facility] [address] [place] [address] May, [facility] [id number] [place] [address] Apr, Arthritis M19.90 [facility] [id number] [place] [address] Apr, Arthritis M19.90 and Acute cystitis without hematuria N30.00 [facility] [address] [place] [address] Apr, [facility] [id number] [place] [address] Apr, Fibromyalgia M79.7 [facility] [address] [place] [address] Apr, Arthritis M19.[address] [facility] [address], [place] [address] Mar, [facility] [address] [place] [address] Mar, Acute gout involving toe of right foot, unspecified cause M10.9 [facility] [address], [place] [address] Mar, [facility] [address] [place] [address] Feb, [facility] [address], [place] [address] Feb, [facility] [id number] [place] [address] Feb, Arthritis M19.90 [facility] [address] [place] [address] Jan, [facility] [id number] [place] [address] Jan, [facility] [id number] [place] [address] Jan, [facility] [id number] [place] [address] Jan, [facility] [id number] [place] [address] Jan, Coronary artery disease involving [place] coronary artery, angina presence unspecified, unspecified whether [place] or transplanted heart I25.10 ; Arthritis M19.90 and Edema, unspecified type R60.9 [facility] [id number] [place] [address] Jan, [facility] [id number] [place] [address] Jan, [facility] [address] [place] [address] Jan, Anxiety F41.9 and Depressive disorder, not elsewhere classified F32.9 [facility] [address], [place] [address] Dec, Dementia without behavioral disturbance, unspecified dementia type F03.90 and Reactive depression F32.9 [facility] [address], [place] [address] Dec, [facility] [address] [place] [address] Dec, [address] [facility] [id number] [address] Nov, Depressive disorder, not elsewhere classified F32.9 and Anxiety F41.9 [place] [address] [facility] [id number] [address] Nov, Coronary artery disease involving [place] coronary artery, angina presence unspecified, unspecified whether [place] or transplanted heart I25.10 ; Fibromyalgia M79.7 ; Arthritis M19.90 ; Anxiety F41.9 ; Hyperlipidemia, unspecified hyperlipidemia type E78.5 and Barretts esophagus with dysplasia K22.719 [address] [address] [facility] [id number] [address] Nov, IMMUNIZATIONS No Known Immunizations SOCIAL HISTORY Never Assessed REASON FOR VISIT Controlled Med Refill 12/21 PLAN OF CARE VITAL SIGNS MEDICATIONS Medication [...]
[2018-12-14] MEDS ORDERED: NITROGLYCERIN 0.4 MG SL TABS BTL 25'S SL ONE (12:00)
[2018-12-14] MEDS ORDERED: ASPIRIN 81 MG CHEW (CHILDREN'S ASA) PO ONE (12:00)
--- OUTSIDE RECORDS SUMMARY | 2018-12-14 12:00 | XMS REPORT ---
Author Author DELMI BYRNES Organization [facility] Address [address] [place] [address] Care Team Providers Care Import/Export Clerk Name Role Phone DELMI BYRNES Unavailable PROBLEMS Type Condition ICD9-CM Code [id number] Code Onset Dates Condition Status SNOMED Code Problem Lumbar radiculopathy M54.16 Active 678256888 Problem Chronic bronchitis, unspecified chronic bronchitis type J42 Active 94278057 Problem Chronic depression F32.9 Active 939658971 Problem Stress incontinence N39.3 Active 97761569 Problem Onychomycosis B35.1 Active 375140700 Problem Intractable cyclical vomiting with nausea G43.A1 Active 84642627 Problem Severe episode of recurrent major depressive disorder, without psychotic features F33.2 Active 20331247 Problem Stage 3 chronic kidney disease N18.3 Active 749523575 Problem Pseudobulbar affect F48.2 Active 70169387 Problem Coronary artery disease involving buckland coronary artery, angina presence unspecified, unspecified whether buckland or transplanted heart I25.10 Active 2597215489980 Problem Barretts esophagus with dysplasia K22.719 Active 6031949517621594 Problem Hyperlipidemia, unspecified hyperlipidemia type E78.5 Active 25864118 Problem Anxiety F41.9 Active 76801974 Problem Chronic kidney disease, stage 2 (mild) N18.2 Active 086620921 Problem Arthritis M19.90 Active 6239757 Problem Prediabetes R73.03 Active 830926909 Problem Fibromyalgia M79.7 Active 436596768 Problem Essential hypertension I10 Active 74942624 ALLERGIES Substance Reaction Event Type Date Status Milk Unknown Non Drug Allergy Nov, Active Eggs Unknown Non Drug Allergy Nov, Active ENCOUNTERS Encounter Location Date Diagnosis [facility] [address] [facility] [id number] [address] Jan, Anxiety F41.9 [facility] [address] [id number] [address] Dec, Arthritis M19.90 [place] [id number] [place] [address] Dec, Lumbar radiculopathy M54.16 ; Right ear pain H92.01 and Stress incontinence N39.3 [place] [id number] [place] [address] Dec, Anxiety F41.9 [place] [address] [address] Nov, Prediabetes R73.03 ; Essential hypertension I10 ; Bilateral impacted cerumen H61.23 ; Severe episode of recurrent major depressive disorder, without psychotic features F33.2 and Lumbar radiculopathy M54.16 [place] [id number] [place] [address] Oct, [place] [address] [address] Oct, Arthritis M19.90 [place] [id number] [place] [address] Oct, Anxiety F41.9 and Arthritis M19.90 [place] [id number] [place] [address] Oct, Essential hypertension I10 ; Barretts esophagus with dysplasia K22.719 ; Pseudobulbar affect F48.2 ; Arthritis M19.90 ; Onychomycosis B35.1 and Stage 3 chronic kidney disease N18.3 [place] [id number] [place] [address] September, Arthritis M19.90 [place] [id number] [place] [address] September, [place] [id number] [place] [address] Aug, Essential hypertension I10 ; Lumbar radiculopathy M54.16 ; Anxiety F41.9 ; Intractable cyclical vomiting with nausea G43.A1 and Pseudobulbar affect F48.2 [place] [address] [address] Aug, Arthritis M19.90 [place] [address] [address] 29 Jul, 2017 Intractable cyclical vomiting with nausea G43.A1 and Anxiety F41.9 [place] [address] [address] Jul, [place] [address] [address] 09 Jul, 2017 Anxiety F41.9 and Arthritis M19.90 [place] [address] [address] 07 Jul, 2017 Severe episode of recurrent major depressive disorder, without psychotic features F33.2 and Neurocognitive disorder R41.9 [place] [id number] [place] [address] 27 Jun, 2017 [place] [address] [address] 20 Jun, 2017 Lumbar radiculopathy M54.16 ; Essential hypertension I10 ; Anxiety F41.9 and Chronic bronchitis, unspecified chronic bronchitis type J42 [place] [id number] [place] [address] 15 Jun, 2017 Anxiety F41.9 [place] [id number] [place] [address] 14 Jun, 2017 [place] [address] [address] 12 Jun, 2017 Arthritis M19.90 [place] [address] [address] 05 Jun, 2017 [place] [address] [address] 05 Jun, 2017 [facility] [address] [place] [address] May, [facility] [id number] [place] [address] 16 May, 2017 [facility] [id number] [place] [address] May, HPV (human papilloma virus) infection B97.7 [facility] [id number] [place] [address] May, Anxiety F41.9 and Arthritis M19.90 [facility] [id number] [place] [address] 18 Apr, 2017 [facility] [id number] [place] [address] 15 Apr, 2017 [facility] [id number] [place] [address] 13 Apr, 2017 Colon cancer screening Z12.11 [facility] [id number] [place] [address] 11 Apr, 2017 [facility] [address] [place] [address] Apr, [facility] [address] [place] [address] 07 Apr, 2017 Arthritis M19.90 and Anxiety F41.9 [facility] [address] [place] [address] 30 Mar, 2017 Well woman exam Z01.419 and Colon cancer screening Z12.11 [facility] [id number] [place] [address] 14 Mar, 2017 [facility] [address] [place] [address] 13 Mar, 2017 Anxiety F41.9 and Arthritis M19.90 [place] [address] [place] [address] Feb, Encounter for immunization Z23 ; Essential hypertension I10 ; Lumbar radiculopathy M54.16 ; Chronic depression F32.9 ; Routine adult health maintenance Z00.00 and Chronic bronchitis, unspecified chronic bronchitis type J42 [place] [id number] [place] [address] Feb, Arthritis M19.90 and Anxiety F41.9 [place] [id number] [place] [address] Jan, Arthritis M19.90 and Anxiety F41.9 [place] [address] [place] [address] Dec, Arthritis M19.90 and Anxiety F41.9 [place] [address] [place] [address] Dec, Lumbar radiculopathy M54.16 and Chronic depression F32.9 [place] [address] [place] [address] Dec, [place] [address] [place] [address] Dec, Foot drop, right foot M21.371 ; Coronary artery disease involving buckland coronary artery, angina presence unspecified, unspecified whether buckland or transplanted heart I25.10 and Depressive disorder, not elsewhere classified F32.9 [place] [address] [place] [address] Nov, Arthritis M19.90 [place] [address] [place] [address] Nov, [place] [id number] [place] [address] Oct, [place] [address] [place] [address] Oct, Essential hypertension I10 ; Anxiety F41.9 ; Arthritis M19.90 and Fibromyalgia M79.7 [place] [id number] [place] [address] September, Anxiety F41.9 [place] [address] [place] [address] September, Arthritis M19.90 [place] [address] [address] Aug, Dental examination Z01.20 [place] [id number] [place] [address] Aug, Anxiety F41.9 [place] [address] [place] [address] Aug, [place] [address] [place] [address] Aug, Anxiety F41.9 [place] [address] [place] [address] Aug, Essential hypertension I10 and Arthritis M19.90 [place] [address] [place] [address] Aug, Depressive disorder, not elsewhere classified F32.9 [place] [address] [place] [address] Jul, Abrasion, unspecified lesser toe(s), sequela S90.416S and Local infection of the skin and subcutaneous tissue, unspecified L08.9 [place] [address] [place] [address] Jul, Prediabetes R73.03 and Essential hypertension I10 [place] [address] [place] [address] Jul, Abnormal glucose level R73.09 [facility] [id number] [place] [id number] Jul, [place] [address] [address] 17 Jul, 2016 Abnormal glucose level R73.09 [facility] [address] [place] [address] Jul, Fibromyalgia M79.7 ; Arthritis M19.90 ; Chronic kidney disease, stage 2 (mild) N18.2 and Depressive disorder, not elsewhere classified F32.9 [facility] [id number] [place] [address] Jul, [facility] [id number] [place] [address] Jul, [facility] [id number] [place] [address] Jul, [facility] [id number] [place] [address] Jul, Arthritis M19.90 ; Depressive disorder, not elsewhere classified F32.9 ; Fibromyalgia M79.7 and Constipation, unspecified constipation type K59.00 [place] [address] [place] [address] 15 Jun, 2016 Anxiety F41.9 [place] [address] [place] [address] 14 Jun, 2016 Anxiety F41.9 and Fibromyalgia M79.7 [place] [address] [place] [address] Jun, [facility] [address] [place] [address] Jun, Arthritis M19.90 ; Depressive disorder, not elsewhere classified F32.9 ; Barretts esophagus with dysplasia K22.719 ; Edema, unspecified type R60.9 and Fibromyalgia M79.7 [facility] [address] [place] [address] Jun, [facility] [id number] [place] [address] May, [facility] [address] [place] [address] May, Dyspnea on exertion R06.09 ; Coronary artery disease involving buckland coronary artery, angina presence unspecified, unspecified whether buckland or transplanted heart I25.10 and Arthritis M19.90 [facility] [address] [place] [address] May, [facility] [id number] [place] [address] Apr, Arthritis M19.90 [place] [address] [place] [address] Apr, Arthritis M19.90 and Acute cystitis without hematuria N30.00 [facility] [address] [place] [address] Apr, [place] [address] [place] [address] Apr, Fibromyalgia M79.7 [place] [address] [place] [address] Apr, Arthritis M19.90 and Onychomycosis B35.1 [place] [address] [place] [address] Mar, [place] [address] [place] [address] Mar, Acute gout involving toe of right foot, unspecified cause M10.9 [place] [address] [place] [address] Mar, [facility] [id number] [place] [address] Feb, [facility] [id number] [place] [address] Feb, [facility] [address], [place] [address] Feb, Arthritis M19.90 [facility] [id number] [place] [address] 23 Jan, 2016 [facility] [id number] [place] [address] Jan, [facility] [id number] [place] [address] Jan, [facility] [id number] [place] [address] Jan, [facility] [id number] [place] [address] Jan, Coronary artery disease involving buckland coronary artery, angina presence unspecified, unspecified whether buckland or transplanted heart I25.10 ; Arthritis M19.90 and Edema, unspecified type R60.9 [facility] [id number] [place] [address] Jan, [facility] [address] [place] [address] Jan, [facility] [id number] [place] [address] Jan, Anxiety F41.9 and Depressive disorder, not elsewhere classified F32.9 [facility] [address] [place] [address] Dec, Dementia without behavioral disturbance, unspecified dementia type F03.90 and Reactive depression F32.9 [facility] [address], [place] [address] Dec, [facility] [id number] [place] [address] Dec, [facility] [address], [place] [address] Nov, Depressive disorder, not elsewhere classified F32.9 and Anxiety F41.9 [facility] [address] [facility] [id number] [address] Nov, Coronary artery disease involving buckland coronary artery, angina presence unspecified, unspecified whether buckland or transplanted heart I25.10 ; Fibromyalgia M79.7 ; Arthritis M19.90 ; Anxiety F41.9 ; Hyperlipidemia, unspecified hyperlipidemia type E78.5 and Barretts esophagus with dysplasia K22.719 [place] [address] [facility] [id number] [address] Nov, IMMUNIZATIONS No Known Immunizations SOCIAL HISTORY Never Assessed REASON FOR VISIT Ear lavage, PT reports her right ear started hurting a couple of weeks ago -Damon coon MA , Updated Contact PLAN OF CARE Activity Details Follow Up 3 Months Reason: Pending Test A1C (IN HOUSE) Future/Pending Procedure EAR LAVAGE VITAL SIGNS Height 67 in 2017-12-04 Weight 186.9 lbs 2017-12-04 Temperature 97.6 degrees Fahrenheit 2017-12-04 Heart Rate 77 bpm 2017-12-04 Respiratory Rate 18 2017-12-04 Oximetry on room air:96 % 2017-12-04 BMI 29.27 kg/m2 2017-12-04 Blood pressure systolic 110 mmHg 2017-12-04 Blood pressure diastolic 78 mmHg 2017-12-04 MEDICATIONS Medication Instructions Dosage Frequency Start Date End Date Duration Status Cholecalciferol 1000 UNIT Orally Once a day 2 capsules 24h 30 days Active Oxycodone HCl 5 mg Orally every 6 hrs, prn pain 1 tablet Oct, Active Lisinopril 40 MG Orally Once a day 1 tablet 24h Active Exelon 4.6 MG/24HR Transdermal Once a day 1 patch to skin 24h Active Multivitamin Adult - Orally Once a day 1 tablet 24h 30 Active Adjust Bath/Shower Seat/Back - use in shower Jun, Active Colace 100 mg Orally Once a day 1 capsule as needed 24h 30 Active Alprazolam 1 MG Orally Twice a day 1 tablet 12h 28 days Active Ranitidine HCl 150 MG Orally twice a day 1 tablet at bedtime 12h Active Nuedexta 20-10 MG Orally 2 times a day 1 capsule 12h Oct, 30 day(s) Active Metoprolol Tartrate 50 mg Orally Twice a day 1 tablet with food 12h 30 Active Premarin 30GM Vaginal Insert 1 Gram every night at bedtime twice a week Active Atorvastatin Calcium 80 MG Orally at bedtime 1 tablet Active Folic Acid 1 MG Orally twice a day 1 tablet 12h Active Reglan 10 MG Orally qid, ac and hs as directed Active Toviaz 4 MG Orally Once a day 1 tablet 24h Active Pantoprazole Sodium 40 mg Orally Once a day 1 tablet 24h Active Duloxetine HCl 30 MG Orally Once a day 1 capsule 24h Active Aspirin 325 MG Orally Once a day 1 tablet 24h 30 Active ProAir HFA 108 (90 Base) MCG/ACT Inhalation every 6 hrs 2 puffs as needed 6h Active Rivastigmine 4.6 APPLY 1 PATCH TO SKIN ONCE A DAY 30 Active Cetirizine HCl 10 TAKE 1 TABLET BY MOUTH DAILY 30 Active RESULTS No Results PROCEDURES Procedure Date Ordered Result Body Site GLYCATED HEMOGLOBIN TEST December 04, 2017 [facility], 2017 EAR IRRIGATION December 04, 2017 VENIPUNCT, ROUTINE* December 04, 2017 INSTRUCTIONS MEDICATIONS ADMINISTERED No Known Medications [...]
--- OUTSIDE RECORDS SUMMARY | 2018-12-14 12:00 | XMS REPORT ---
Author Author DELMI BYRNES Organization [facility] Address [address] [place] [address] Care Team Providers Care Valve Mechanic Name Role Phone DELMI BYRNES Unavailable PROBLEMS Type Condition ICD9-CM Code [id number] Code Onset Dates Condition Status SNOMED Code Problem Lumbar radiculopathy M54.16 Active 766014518 Problem Chronic bronchitis, unspecified chronic bronchitis type J42 Active 78197801 Problem Chronic depression F32.9 Active 359158747 Problem Stress incontinence N39.3 Active 55481762 Problem Onychomycosis B35.1 Active 324215592 Problem Intractable cyclical vomiting with nausea G43.A1 Active 78868665 Problem Severe episode of recurrent major depressive disorder, without psychotic features F33.2 Active 71155496 Problem Stage 3 chronic kidney disease N18.3 Active 967145260 Problem Pseudobulbar affect F48.2 Active 26866549 Problem Coronary artery disease involving stockbridge coronary artery, angina presence unspecified, unspecified whether stockbridge or transplanted heart I25.10 Active 3111245592056 Problem Barretts esophagus with dysplasia K22.719 Active 2235273954095909 Problem Hyperlipidemia, unspecified hyperlipidemia type E78.5 Active 96059210 Problem Anxiety F41.9 Active 89177707 Problem Chronic kidney disease, stage 2 (mild) N18.2 Active 334343119 Problem Arthritis M19.90 Active 7275364 Problem Prediabetes R73.03 Active 193089059 Problem Fibromyalgia M79.7 Active 025529031 Problem Essential hypertension I10 Active 11068165 ALLERGIES No Information ENCOUNTERS Encounter Location Date Diagnosis [facility] [id number] [address] Dec, Arthritis M19.90 [facility] [id number] [address] Dec, Lumbar radiculopathy M54.16 ; Right ear pain H92.01 and Stress incontinence N39.3 [place] [id number] [place] [address] Dec, Anxiety F41.9 [place] [id number] [place] [address] Nov, Prediabetes R73.03 ; Essential hypertension I10 ; Bilateral impacted cerumen H61.23 ; Severe episode of recurrent major depressive disorder, without psychotic features F33.2 and Lumbar radiculopathy M54.16 [place] [id number] [place] [address] Oct, [place] [id number] [place] [address] Oct, Arthritis M19.90 [place] [place] [id number] [place] [address] Oct, Anxiety F41.9 and Arthritis M19.90 [place] [id number] [place] [address] Oct, Essential hypertension I10 ; Barretts esophagus with dysplasia K22.719 ; Pseudobulbar affect F48.2 ; Arthritis M19.90 ; Onychomycosis B35.1 and Stage 3 chronic kidney disease N18.3 [place] [id number] [place] [address] September, Arthritis M19.90 [place] [id number] [place] [address] September, [place] [id number] [place] [address] Aug, Essential hypertension I10 ; Lumbar radiculopathy M54.16 ; Anxiety F41.9 ; Intractable cyclical vomiting with nausea G43.A1 and Pseudobulbar affect F48.2 [place] [id number] [place] [address] Aug, Arthritis M19.90 [facility] [id number] [place] [address] 29 Jul, 2017 Intractable cyclical vomiting with nausea G43.A1 and Anxiety F41.9 [facility] [id number] [place] [address] 13 Jul, 2017 [facility] [address] [address] Jul, Anxiety F41.9 and Arthritis M19.90 [facility] [address] [address] 07 Jul, 2017 Severe episode of recurrent major depressive disorder, without psychotic features F33.2 and Neurocognitive disorder R41.9 [facility] [address] [address] 27 Jun, 2017 [facility] [address] [address] 20 Jun, 2017 Lumbar radiculopathy M54.16 ; Essential hypertension I10 ; Anxiety F41.9 and Chronic bronchitis, unspecified chronic bronchitis type J42 [place] [address] [address] 15 Jun, 2017 Anxiety F41.9 [facility] [id number] [place] [address] 14 Jun, 2017 [facility] [id number] [place] [address] Jun, Arthritis M19.90 [facility] [address] [address] 05 Jun, 2017 [facility] [id number] [place] [phone] 05 Jun, 2017 [facility] [address] [address] May, [facility] [address] [place] [address] 16 May, 2017 [place] [id number] [place] [address] 10 May, 2017 HPV (human papilloma virus) infection B97.7 [facility] [id number] [place] [address] 02 May, 2017 Anxiety F41.9 and Arthritis M19.90 [place] [id number] [place] [address] 18 Apr, 2017 [place] [place] [id number] [place] [address] 15 Apr, 2017 [facility] [place] [id number] [place] [address] 13 Apr, 2017 Colon cancer screening Z12.11 [place] [id number] [place] [address] 11 Apr, 2017 [place] [id number] [place] [address] Apr, [place] [id number] [place] [address] 07 Apr, 2017 Arthritis M19.90 and Anxiety F41.9 [place] [id number] [place] [address] 30 Mar, 2017 Well woman exam Z01.419 and Colon cancer screening Z12.11 [place] [id number] [place] [address] 14 Mar, 2017 [place] [id number] [place] [address] 13 Mar, 2017 Anxiety F41.9 and Arthritis M19.90 [place] [id number] [place] [address] 19 Feb, 2017 Encounter for immunization Z23 ; Essential hypertension I10 ; Lumbar radiculopathy M54.16 ; Chronic depression F32.9 ; Routine adult health maintenance Z00.00 and Chronic bronchitis, unspecified chronic bronchitis type J42 [facility] [id number] [place] [address] Feb, Arthritis M19.90 and Anxiety F41.9 [place] [id number] [place] [address] Jan, Arthritis M19.90 and Anxiety F41.9 [place] [address] [address] Dec, Arthritis M19.90 and Anxiety F41.9 [place] [id number] [place] [address] Dec, Lumbar radiculopathy M54.16 and Chronic depression F32.9 [place] [id number] [place] [address] Dec, [place] [address] [address] Dec, Foot drop, right foot M21.371 ; Coronary artery disease involving stockbridge coronary artery, angina presence unspecified, unspecified whether stockbridge or transplanted heart I25.10 and Depressive disorder, not elsewhere classified F32.9 [place] [id number] [place] [address] Nov, Arthritis M19.90 [place] [id number] [place] [address] Nov, [place] [id number] [place] [address] Oct, [place] [id number] [place] [address] Oct, Essential hypertension I10 ; Anxiety F41.9 ; Arthritis M19.90 and Fibromyalgia M79.7 [place] [id number] [place] [address] September, Anxiety F41.9 [place] [address] [place] [address] September, Arthritis M19.90 [place] [id number] [place] [address] Aug, Dental examination Z01.20 [place] [id number] [place] [address] Aug, Anxiety F41.9 [place] [id number] [place] [address] Aug, [place] [id number] [place] [address] Aug, Anxiety F41.9 [place] [id number] [place] [address] Aug, Essential hypertension I10 and Arthritis M19.90 [place] [id number] [place] [address] Aug, Depressive disorder, not elsewhere classified F32.9 [place] [id number] [place] [address] Jul, Abrasion, unspecified lesser toe(s), sequela S90.416S and Local infection of the skin and subcutaneous tissue, unspecified L08.9 [place] [address] [place] [address] Jul, Prediabetes R73.03 and Essential hypertension I10 [place] [address] [place] [address] Jul, Abnormal glucose level R73.09 [place] [id number] [place] [id number] Jul, [place] [id number] [place] [address] Jul, Abnormal glucose level R73.09 [place] [id number] [place] [address] Jul, Fibromyalgia M79.7 ; Arthritis M19.90 ; Chronic kidney disease, stage 2 (mild) N18.2 and Depressive disorder, not elsewhere classified F32.9 [place] [id number] [place] [address] Jul, [facility] [id number] [place] [address] Jul, [facility] [id number] [place] [address] Jul, [facility] [id number] [place] [address] Jul, Arthritis M19.90 ; Depressive disorder, not elsewhere classified F32.9 ; Fibromyalgia M79.7 and Constipation, unspecified constipation type K59.00 [place] [id number] [place] [address] 15 Jun, 2016 Anxiety F41.9 [place] [id number] [place] [address] 14 Jun, 2016 Anxiety F41.9 and Fibromyalgia M79.7 [place] [id number] [place] [address] Jun, [place] [id number] [place] [address] Jun, Arthritis M19.90 ; Depressive disorder, not elsewhere classified F32.9 ; Barretts esophagus with dysplasia K22.719 ; Edema, unspecified type R60.9 and Fibromyalgia M79.7 [place] [id number] [place] [address] Jun, [place] [id number] [place] [address] May, [facility] [id number] [place] [address] May, Dyspnea on exertion R06.09 ; Coronary artery disease involving stockbridge coronary artery, angina presence unspecified, unspecified whether stockbridge or transplanted heart I25.10 and Arthritis M19.90 [facility] [id number] [place] [address] May, [facility] [id number] [place] [address] Apr, Arthritis M19.90 [facility] [id number] [place] [address] Apr, Arthritis M19.90 and Acute cystitis without hematuria N30.00 [facility] [address] [place] [address] Apr, [facility] [id number] [place] [address] Apr, Fibromyalgia M79.7 [facility] [id number] [place] [address] Apr, Arthritis M19.90 and Onychomycosis B35.1 [facility] [id number] [place] [address] Mar, [facility] [id number] [place] [address] Mar, Acute gout involving toe of right foot, unspecified cause M10.9 [facility] [address] [place] [address] Mar, [facility] [id number] [place] [address] Feb, [facility] [id number] [place] [address] Feb, [facility] [id number] [place] [address] Feb, Arthritis M19.90 [facility] [id number] [place] [address] Jan, [facility] [address] [place] [address] Jan, [facility] [id number] [place] [address] Jan, [facility] [id number] [place] [address] 16 Jan, 2016 [facility] [id number] [place] [address] Jan, Coronary artery disease involving stockbridge coronary artery, angina presence unspecified, unspecified whether stockbridge or transplanted heart I25.10 ; Arthritis M19.90 and Edema, unspecified type R60.9 [facility] [id number] [place] [address] Jan, [facility] [id number] [place] [address] Jan, [facility] [id number] [place] [address] Jan, Anxiety F41.9 and Depressive disorder, not elsewhere classified F32.9 [facility] [id number] [place] [address] Dec, Dementia without behavioral disturbance, unspecified dementia type F03.90 and Reactive depression F32.9 [facility] [address] [place] [address] Dec, [facility] [id number] [place] [address] Dec, [facility] [address] [place] [address] Nov, Depressive disorder, not elsewhere classified F32.9 and Anxiety F41.9 [facility] [address] [place] [address] Nov, Coronary artery disease involving stockbridge coronary artery, angina presence unspecified, unspecified whether stockbridge or transplanted heart I25.10 ; Fibromyalgia M79.7 ; Arthritis M19.90 ; Anxiety F41.9 ; Hyperlipidemia, unspecified hyperlipidemia type E78.5 and Barretts esophagus with dysplasia K22.719 [facility] [address] [facility] [id number] [address] Nov, IMMUNIZATIONS No Known Immunizations SOCIAL HISTORY Never Assessed REASON FOR VISIT PA initiated-- Approved PLAN OF CARE VITAL SIGNS MEDICATIONS Unknown [...]
--- OUTSIDE RECORDS SUMMARY | 2018-12-14 12:00 | XMS REPORT ---
Author Author DELMI BYRNES [facility] Address [address] [place] [address] Care Team Providers Care Crm Technical Lead Name Role Phone DELMI BYRNES Unavailable PROBLEMS Type Condition ICD9-CM Code [id number] Code Onset Dates Condition Status SNOMED Code Problem Lumbar radiculopathy M54.16 Active 996965105 Problem Chronic bronchitis, unspecified chronic bronchitis type J42 Active 89397593 Problem Chronic depression F32.9 Active 482256892 Problem Stress incontinence N39.3 Active 17673507 Problem Onychomycosis B35.1 Active 818582931 Problem Intractable cyclical vomiting with nausea G43.A1 Active 45318432 Problem Severe episode of recurrent major depressive disorder, without psychotic features F33.2 Active 66212691 Problem Stage 3 chronic kidney disease N18.3 Active 051528338 Problem Pseudobulbar affect F48.2 Active 45201537 Problem Coronary artery disease involving [place] coronary artery, angina presence unspecified, unspecified whether [place] or transplanted heart I25.10 Active 5724916027640 Problem Barretts esophagus with dysplasia K22.719 Active 5546432243211483 Problem Hyperlipidemia, unspecified hyperlipidemia type E78.5 Active 50065905 Problem Anxiety F41.9 Active 83603389 Problem Chronic kidney disease, stage 2 (mild) N18.2 Active 154815020 Problem Arthritis M19.90 Active 9571989 Problem Prediabetes R73.03 Active 818731251 Problem Fibromyalgia M79.7 Active 811453427 Problem Essential hypertension I10 Active 90215695 ALLERGIES No Information ENCOUNTERS Encounter Location Date Diagnosis [facility] [address] [place] [address] 04 Jan, 2018 [facility] [address] [facility] [id number] [address] Dec, Lumbar radiculopathy M54.16 ; Right ear pain H92.01 and Stress incontinence N39.3 [facility] [id number] [place] [address] Dec, Anxiety F41.9 [facility] [id number] [place] [address] Nov, Prediabetes R73.03 ; Essential hypertension I10 ; Bilateral impacted cerumen H61.23 ; Severe episode of recurrent major depressive disorder, without psychotic features F33.2 and Lumbar radiculopathy M54.16 [facility] [id number] [place] [address] Oct, [facility] [address] [address] Oct, Arthritis M19.90 [facility] [address] [address] Oct, Anxiety F41.9 and Arthritis M19.90 [facility] [id number] [place] [address] Oct, Essential hypertension I10 ; Barretts esophagus with dysplasia K22.719 ; Pseudobulbar affect F48.2 ; Arthritis M19.90 ; Onychomycosis B35.1 and Stage 3 chronic kidney disease N18.3 [facility] [id number] [place] [address] September, Arthritis M19.90 [facility] [id number] [place] [address] September, [facility] [id number] [place] [address] Aug, Essential hypertension I10 ; Lumbar radiculopathy M54.16 ; Anxiety F41.9 ; Intractable cyclical vomiting with nausea G43.A1 and Pseudobulbar affect F48.2 [facility] [id number] [place] [address] Aug, Arthritis M19.90 [facility] [id number] [place] [address] 29 Jul, 2017 Intractable cyclical vomiting with nausea G43.A1 and Anxiety F41.9 [facility] [address] [address] Jul, [facility] [address] [address] Jul, Anxiety F41.9 and Arthritis M19.90 [facility] [address] [address] Jul, Severe episode of recurrent major depressive disorder, without psychotic features F33.2 and Neurocognitive disorder R41.9 [facility] [address] [address] 27 Jun, 2017 [facility] [address] [address] 20 Jun, 2017 Lumbar radiculopathy M54.16 ; Essential hypertension I10 ; Anxiety F41.9 and Chronic bronchitis, unspecified chronic bronchitis type J42 [facility] [address] [address] 15 Jun, 2017 Anxiety F41.9 [facility] [id number] [place] [address] 14 Jun, 2017 [facility] [id number] [place] [address] Jun, Arthritis M19.90 [facility] [id number] [place] [address] Jun, [facility] [address] [address] Jun, [facility] [id number] [place] [address] May, [facility] [address] [address] May, [facility] [id number] [place] [address] 10 May, 2017 HPV (human papilloma virus) infection B97.7 [facility] [id number] [place] [address] 02 May, 2017 Anxiety F41.9 and Arthritis M19.90 [facility] [id number] [place] [address] 18 Apr, 2017 [facility] [id number] [place] [address] 15 Apr, 2017 [facility] [address] [address] Apr, Colon cancer screening Z12.11 [facility] [place] [id number] [place] [address] 11 Apr, 2017 [facility] [id number] [place] [address] Apr, [facility] [id number] [place] [address] 07 Apr, 2017 Arthritis M19.90 and Anxiety F41.9 [facility] [place] [id number] [place] [address] 30 Mar, 2017 Well woman exam Z01.419 and Colon cancer screening Z12.11 [place] [id number] [place] [address] 14 Mar, 2017 [place] [id number] [place] [address] 13 Mar, 2017 Anxiety F41.9 and Arthritis M19.90 [place] [place] [id number] [place] [address] 19 Feb, 2017 Encounter for immunization Z23 ; Essential hypertension I10 ; Lumbar radiculopathy M54.16 ; Chronic depression F32.9 ; Routine adult health maintenance Z00.00 and Chronic bronchitis, unspecified chronic bronchitis type J42 [facility] [id number] [place] [address] Feb, Arthritis M19.90 and Anxiety F41.9 [facility] [id number] [place] [address] Jan, Arthritis M19.90 and Anxiety F41.9 [facility] [address] [address] Dec, Arthritis M19.90 and Anxiety F41.9 [facility] [address] [address] Dec, Lumbar radiculopathy M54.16 and Chronic depression F32.9 [facility] [id number] [place] [address] Dec, [facility] [address] [address] Dec, Foot drop, right foot M21.371 ; Coronary artery disease involving [place] coronary artery, angina presence unspecified, unspecified whether [place] or transplanted heart I25.10 and Depressive disorder, not elsewhere classified F32.9 [facility] [id number] [place] [address] Nov, Arthritis M19.90 [facility] [id number] [place] [address] Nov, [facility] [id number] [place] [address] Oct, [facility] [id number] [place] [address] Oct, Essential hypertension I10 ; Anxiety F41.9 ; Arthritis M19.90 and Fibromyalgia M79.7 [facility] [id number] [place] [address] September, Anxiety F41.9 [facility] [address] [place] [address] September, Arthritis M19.90 [facility] [id number] [place] [address] Aug, Dental examination Z01.20 [facility] [id number] [place] [address] Aug, Anxiety F41.9 [facility] [id number] [place] [address] Aug, [facility] [id number] [place] [address] Aug, Anxiety F41.9 [facility] [id number] [place] [address] Aug, Essential hypertension I10 and Arthritis M19.90 [facility] [id number] [place] [address] Aug, Depressive disorder, not elsewhere classified F32.9 [facility] [id number] [place] [address] Jul, Local infection of the skin and subcutaneous tissue, unspecified L08.9 and Abrasion, unspecified lesser toe(s), sequela S90.416S [facility] [address] [place] [address] Jul, Prediabetes R73.03 and Essential hypertension I10 [facility] [id number] [place] [address] Jul, Abnormal glucose level R73.09 [facility] [id number] [place] [id number] Jul, [facility] [id number] [place] [address] Jul, Abnormal glucose level R73.09 [facility] [address] [place] [address] Jul, Fibromyalgia M79.7 ; Arthritis M19.90 ; Chronic kidney disease, stage 2 (mild) N18.2 and Depressive disorder, not elsewhere classified F32.9 [facility] [id number] [place] [address] Jul, [facility] [id number] [place] [address] Jul, [facility] [address] [address] Jul, [facility] [id number] [place] [address] Jul, Arthritis M19.90 ; Depressive disorder, not elsewhere classified F32.9 ; Fibromyalgia M79.7 and Constipation, unspecified constipation type K59.00 [facility] [id number] [place] [address] 15 Jun, 2016 Anxiety F41.9 [facility] [id number] [place] [address] 14 Jun, 2016 Anxiety F41.9 and Fibromyalgia M79.7 [facility] [id number] [place] [address] Jun, [facility] [id number] [place] [address] 10 Jun, 2016 Arthritis M19.90 ; Depressive disorder, not elsewhere classified F32.9 ; Barretts esophagus with dysplasia K22.719 ; Edema, unspecified type R60.9 and Fibromyalgia M79.7 [facility] [id number] [place] [address] Jun, [facility] [id number] [place] [address] May, [facility] [id number] [place] [address] May, Dyspnea on exertion R06.09 ; Coronary artery disease involving [place] coronary artery, angina presence unspecified, unspecified whether [place] or transplanted heart I25.10 and Arthritis M19.90 [facility] [address] [place] [address] May, [facility] [id number] [place] [address] Apr, Arthritis M19.90 [facility] [id number] [place] [address] Apr, Arthritis M19.90 and Acute cystitis without hematuria N30.00 [facility] [address] [place] [address] Apr, [facility] [id number] [place] [address] Apr, Fibromyalgia M79.7 [facility] [id number] [place] [address] Apr, Arthritis M19.90 and Onychomycosis B35.1 [facility] [id number] [place] [address] Mar, [facility] [id number] [place] [address] Mar, Acute gout involving toe of right foot, unspecified cause M10.9 [facility] [address] [address] Mar, [facility] [id number] [place] [address] Feb, [facility] [id number] [place] [address] Feb, [facility] [id number] [place] [address] Feb, Arthritis M19.90 [facility] [address] [address] Jan, [facility] [id number] [address] 19 Jan, 2016 [facility] [id number] [place] [address] Jan, [facility] [id number] [place] [address] Jan, [facility] [id number] [place] [address] Jan, Coronary artery disease involving [place] coronary artery, angina presence unspecified, unspecified whether [place] or transplanted heart I25.10 ; Arthritis M19.90 and Edema, unspecified type R60.9 [facility] [id number] [place] [address] Jan, [facility] [id number] [place] [address] Jan, [facility] [id number] [place] [address] Jan, Anxiety F41.9 and Depressive disorder, not elsewhere classified F32.9 [facility] [id number] [place] [address] Dec, Dementia without behavioral disturbance, unspecified dementia type F03.90 and Reactive depression F32.9 [facility] [id number] [place] [address] Dec, [facility] [id number] [place] [address] Dec, [facility] [id number] [place] [address] Nov, Depressive disorder, not elsewhere classified F32.9 and Anxiety F41.9 [facility] [id number] [place] [address] Nov, Coronary artery disease involving [place] coronary artery, angina presence unspecified, unspecified whether [place] or transplanted heart I25.10 ; Fibromyalgia M79.7 ; Arthritis M19.90 ; Anxiety F41.9 ; Hyperlipidemia, unspecified hyperlipidemia type E78.5 and Barretts esophagus with dysplasia K22.719 [facility] [address] [facility] [id number] [address] Nov, IMMUNIZATIONS No Known Immunizations SOCIAL HISTORY Never Assessed REASON FOR VISIT Oxycodone 10/26 PLAN OF CARE VITAL SIGNS MEDICATIONS Medication Instructions Dosage Frequency Start Date End Date Duration Status Oxycodone HCl 5 mg Orally every 6 hrs, prn pain 1 tablet Oct, Active RESULTS No Results PROCEDURES No Known [...]
--- OUTSIDE RECORDS SUMMARY | 2018-12-14 12:01 | XMS REPORT ---
Author Author DELMI BYRNES Organization [facility] Address [address] [place] [address] Care Team Providers Care Counter Cutter Name Role Phone DELMI BYRNES Unavailable PROBLEMS Type Condition ICD9-CM Code [id number] Code Onset Dates Condition Status SNOMED Code Problem Lumbar radiculopathy M54.16 Active 053822707 Problem Chronic bronchitis, unspecified chronic bronchitis type J42 Active 65233662 Problem Chronic depression F32.9 Active 036551509 Problem Stress incontinence N39.3 Active 35110470 Problem Onychomycosis B35.1 Active 703343315 Problem Intractable cyclical vomiting with nausea G43.A1 Active 46900722 Problem Severe episode of recurrent major depressive disorder, without psychotic features F33.2 Active 43065578 Problem Stage 3 chronic kidney disease N18.3 Active 382592175 Problem Pseudobulbar affect F48.2 Active 63088846 Problem Coronary artery disease involving chinik coronary artery, angina presence unspecified, unspecified whether chinik or transplanted heart I25.10 Active 4802456657361 Problem Barretts esophagus with dysplasia K22.719 Active 2924711884534117 Problem Hyperlipidemia, unspecified hyperlipidemia type E78.5 Active 22590572 Problem Anxiety F41.9 Active 72532851 Problem Chronic kidney disease, stage 2 (mild) N18.2 Active 457939151 Problem Arthritis M19.90 Active 2221278 Problem Prediabetes R73.03 Active 992299061 Problem Fibromyalgia M79.7 Active 430793991 Problem Essential hypertension I10 Active 76848855 ALLERGIES No Information ENCOUNTERS Encounter Location Date Diagnosis [facility] [id number] [address] Dec, [facility] [address] [facility] [address] [facility] [id number] [address] Dec, Lumbar radiculopathy M54.16 ; Right ear pain H92.01 and Stress incontinence N39.3 [id number] [place] [address] Dec, Anxiety F41.9 [address] [place] [id number] [place] [address] Nov, Prediabetes R73.03 ; Essential hypertension I10 ; Bilateral impacted cerumen H61.23 ; Severe episode of recurrent major depressive disorder, without psychotic features F33.2 and Lumbar radiculopathy M54.16 [place] [id number] [place] [address] Oct, [place] [address] [address] Oct, Arthritis M19.90 [address] [id number] [place] [address] Oct, Anxiety F41.9 and Arthritis M19.90 [address] [id number] [place] [address] Oct, Essential hypertension I10 ; Barretts esophagus with dysplasia K22.719 ; Pseudobulbar affect F48.2 ; Arthritis M19.90 ; Onychomycosis B35.1 and Stage 3 chronic kidney disease N18.3 [address] [place] [id number] [place] [address] September, Arthritis M19.90 [place] [id number] [place] [address] September, [address] [place] [id number] [place] [address] Aug, Essential hypertension I10 ; Lumbar radiculopathy M54.16 ; Anxiety F41.9 ; Intractable cyclical vomiting with nausea G43.A1 and Pseudobulbar affect F48.2 [address] [place] [id number] [place] [address] Aug, Arthritis M19.90 [facility] [id number] [place] [address] 29 Jul, 2017 Intractable cyclical vomiting with nausea G43.A1 and Anxiety F41.9 [facility] [address] [address] Jul, [facility] [address] [address] Jul, Anxiety F41.9 and Arthritis M19.90 [address] [address] [address] Jul, Severe episode of recurrent major depressive disorder, without psychotic features F33.2 and Neurocognitive disorder R41.9 [address] [address] [address] 27 Jun, 2017 [address] [address] [address] 20 Jun, 2017 Lumbar radiculopathy M54.16 ; Essential hypertension I10 ; Anxiety F41.9 and Chronic bronchitis, unspecified chronic bronchitis type J42 [address] [address] [address] 15 Jun, 2017 Anxiety F41.9 [address] [place] [address] [address] 14 Jun, 2017 [facility] [address] [address] 12 Jun, 2017 Arthritis M19.90 [facility] [address] [address] Jun, [facility] [address] [address] Jun, [facility] [address] [address] May, [facility] [address] [address] May, [address] [address] 10 May, 2017 HPV (human papilloma virus) infection B97.7 [address] [place] [id number] [place] [address] 02 May, 2017 Anxiety F41.9 and Arthritis M19.90 [address] [place] [id number] [place] [address] 18 Apr, 2017 [address] [place] [id number] [place] [address] 15 Apr, 2017 [address] [place] [id number] [place] [address] 13 Apr, 2017 Colon cancer screening Z12.11 [address] [id number] [place] [address] 11 Apr, 2017 [address] [place] [id number] [place] [address] Apr, [place] [id number] [place] [address] 07 Apr, 2017 Arthritis M19.90 and Anxiety F41.9 [address] [id number] [place] [address] 30 Mar, 2017 Well woman exam Z01.419 and Colon cancer screening Z12.11 [address] [place] [id number] [place] [address] 14 Mar, 2017 [address] [place] [id number] [place] [address] 13 Mar, 2017 Anxiety F41.9 and Arthritis M19.90 [address] [place] [id number] [place] [address] 19 Feb, 2017 Encounter for immunization Z23 ; Essential hypertension I10 ; Lumbar radiculopathy M54.16 ; Chronic depression F32.9 ; Routine adult health maintenance Z00.00 and Chronic bronchitis, unspecified chronic bronchitis type J42 [id number] [place] [address] Feb, Arthritis M19.90 and Anxiety F41.9 [address] [place] [id number] [place] [address] Jan, Arthritis M19.90 and Anxiety F41.9 [address] [id number] [place] [address] Dec, Arthritis M19.90 and Anxiety F41.9 [address] [place] [id number] [place] [address] Dec, Lumbar radiculopathy M54.16 and Chronic depression F32.9 [address] [place] [id number] [place] [address] Dec, [address] [place] [id number] [place] [address] Dec, Foot drop, right foot M21.371 ; Coronary artery disease involving chinik coronary artery, angina presence unspecified, unspecified whether chinik or transplanted heart I25.10 and Depressive disorder, not elsewhere classified F32.9 [address] [place] [place] [address] Nov, Arthritis M19.90 [address] [address] [place] [address] Nov, [place] [id number] [place] [address] Oct, [place] [id number] [place] [address] Oct, Essential hypertension I10 ; Anxiety F41.9 ; Arthritis M19.90 and Fibromyalgia M79.7 [address] [place] [place] [address] September, Anxiety F41.9 [address] [id number] [place] [address] September, Arthritis M19.90 [place] [id number] [place] [address] Aug, Dental examination Z01.20 [place] [id number] [place] [address] Aug, Anxiety F41.9 [address] [place] [id number] [place] [address] Aug, [place] [id number] [place] [address] Aug, Anxiety F41.9 [address] [place] [id number] [place] [address] Aug, Essential hypertension I10 and Arthritis M19.90 [address] [place] [id number] [place] [address] Aug, Depressive disorder, not elsewhere classified F32.9 [place] [id number] [place] [address] Jul, Local infection of the skin and subcutaneous tissue, unspecified L08.9 and Abrasion, unspecified lesser toe(s), sequela S90.416S [address] [address] [place] [address] Jul, Prediabetes R73.03 and Essential hypertension I10 [address] [place] [place] [address] Jul, Abnormal glucose level R73.09 [address] [id number] [place] [id number] Jul, [place] [id number] [place] [address] Jul, Abnormal glucose level R73.09 [address] [place] [place] [address] Jul, Fibromyalgia M79.7 ; Arthritis M19.90 ; Chronic kidney disease, stage 2 (mild) N18.2 and Depressive disorder, not elsewhere classified F32.9 [facility] [id number] [place] [address] Jul, [facility] [id number] [place] [address] Jul, [facility] [address] [address] Jul, [facility] [id number] [place] [address] Jul, Arthritis M19.90 ; Depressive disorder, not elsewhere classified F32.9 ; Fibromyalgia M79.7 and Constipation, unspecified constipation type K59.00 [address] [place] [id number] [place] [address] 15 Jun, 2016 Anxiety F41.9 [address] [place] [id number] [place] [address] 14 Jun, 2016 Anxiety F41.9 and Fibromyalgia M79.7 [address] [place] [id number] [place] [address] Jun, [address] [place] [id number] [place] [address] Jun, Arthritis M19.90 ; Depressive disorder, not elsewhere classified F32.9 ; Barretts esophagus with dysplasia K22.719 ; Edema, unspecified type R60.9 and Fibromyalgia M79.7 [facility] [id number] [place] [address] Jun, [facility] [id number] [place] [address] May, [facility] [id number] [place] [address] May, Dyspnea on exertion R06.09 ; Coronary artery disease involving chinik coronary artery, angina presence unspecified, unspecified whether chinik or transplanted heart I25.10 and Arthritis M19.90 [facility] [id number] [place] [address] May, [facility] [id number] [place] [address] Apr, Arthritis M19.90 [facility] [id number] [place] [address] Apr, Arthritis M19.90 and Acute cystitis without hematuria N30.00 [facility] [address] [place] [address] Apr, [facility] [id number] [place] [address] Apr, Fibromyalgia M79.7 [facility] [id number] [place] [address] Apr, Arthritis M19.90 and Onychomycosis B35.1 [facility] [id number] [place] [address] Mar, [facility] [id number] [place] [address] Mar, Acute gout involving toe of right foot, unspecified cause M10.9 [facility] [id number] [place] [address] Mar, [facility] [id number] [place] [address] Feb, [facility] [id number] [place] [address] Feb, [facility] [id number] [place] [address] Feb, Arthritis M19.90 [facility] [id number] [place] [address] Jan, [facility] [address] [address] 19 Jan, 2015 [facility] [id number] [place] [address] 16 Jan, 2016 [facility] [id number] [place] [address] 16 Jan, 2016 [facility] [id number] [place] [address] Jan, Coronary artery disease involving chinik coronary artery, angina presence unspecified, unspecified whether chinik or transplanted heart I25.10 ; Arthritis M19.90 and Edema, unspecified type R60.9 [facility] [id number] [place] [address] Jan, [facility] [id number] [place] [address] Jan, [facility] [id number] [place] [address] Jan, Anxiety F41.9 and Depressive disorder, not elsewhere classified F32.9 [facility] [id number] [place] [address] Dec, Dementia without behavioral disturbance, unspecified dementia type F03.90 and Reactive depression F32.9 [facility] [id number] [place] [address] Dec, [facility] [id number] [place] [address] Dec, [facility] [id number] [place] [address] Nov, Depressive disorder, not elsewhere classified F32.9 and Anxiety F41.9 [facility] [id number] [place] [address] Nov, Coronary artery disease involving chinik coronary artery, angina presence unspecified, unspecified whether chinik or transplanted heart I25.10 ; Fibromyalgia M79.7 ; Arthritis M19.90 ; Anxiety F41.9 ; Hyperlipidemia, unspecified hyperlipidemia type E78.5 and Barretts esophagus with dysplasia K22.719 [facility] [address] [facility] [id number] [place] [address] Nov, IMMUNIZATIONS No Known Immunizations SOCIAL HISTORY Never Assessed REASON FOR VISIT Hydrocodone 09/28 PLAN OF CARE VITAL SIGNS MEDICATIONS Medication [...]
--- OUTSIDE RECORDS SUMMARY | 2018-12-14 12:01 | XMS REPORT ---
Author Author DELMI BYRNES [facility] Address [address] [place] [address] Care Team Providers Care Manager Servicing Name Role Phone DELMI BYRNES Unavailable PROBLEMS Type Condition ICD9-CM Code XPO63-KI Code Onset Dates Condition Status SNOMED Code Problem Lumbar radiculopathy M54.16 Active 095380946 Problem Chronic bronchitis, unspecified chronic bronchitis type J42 Active 25450191 Problem Chronic depression F32.9 Active 731513797 Problem Stress incontinence N39.3 Active 96271059 Problem Onychomycosis B35.1 Active 178640290 Problem Intractable cyclical vomiting with nausea G43.A1 Active 12289465 Problem Severe episode of recurrent major depressive disorder, without psychotic features F33.2 Active 99331662 Problem Stage 3 chronic kidney disease N18.3 Active 001492322 Problem Pseudobulbar affect F48.2 Active 95328149 Problem Coronary artery disease involving [place] coronary artery, angina presence unspecified, unspecified whether [place] or transplanted heart I25.10 Active 2782274587509 Problem Barretts esophagus with dysplasia K22.719 Active [id number] Problem Hyperlipidemia, unspecified hyperlipidemia type E78.5 Active 12226020 Problem Anxiety F41.9 Active 19562575 Problem Chronic kidney disease, stage 2 (mild) N18.2 Active 239634385 Problem Arthritis M19.90 Active 7624769 Problem Prediabetes R73.03 Active 227272297 Problem Fibromyalgia M79.7 Active 117451766 Problem Essential hypertension I10 Active 29056349 ALLERGIES No Information ENCOUNTERS Encounter Location Date Diagnosis [facility] [address] [place] [address] 04 Jan, 2018 [facility] [address] [facility] [id number] [address] Dec, Lumbar radiculopathy M54.16 ; Right ear pain H92.01 and Stress incontinence N39.3 [facility] [id number] [place] [address] Dec, Anxiety F41.9 [place] [id number] [place] [address] Nov, Prediabetes R73.03 ; Essential hypertension I10 ; Bilateral impacted cerumen H61.23 ; Severe episode of recurrent major depressive disorder, without psychotic features F33.2 and Lumbar radiculopathy M54.16 [facility] [id number] [place] [address] Oct, [facility] [address] [address] Oct, Arthritis M19.90 [facility] [address] [address] Oct, Anxiety F41.9 and Arthritis M19.90 [facility] [id number] [place] [address] Oct, Essential hypertension I10 ; Barretts esophagus with dysplasia K22.719 ; Pseudobulbar affect F48.2 ; Arthritis M19.90 ; Onychomycosis B35.1 and Stage 3 chronic kidney disease N18.3 [place] [id number] [place] [address] September, Arthritis M19.90 [place] [id number] [place] [address] September, [place] [id number] [place] [address] Aug, Essential hypertension I10 ; Lumbar radiculopathy M54.16 ; Anxiety F41.9 ; Intractable cyclical vomiting with nausea G43.A1 and Pseudobulbar affect F48.2 [place] [id number] [place] [address] Aug, Arthritis M19.90 [facility] [id number] [place] [address] 29 Jul, 2017 Intractable cyclical vomiting with nausea G43.A1 and Anxiety F41.9 [facility] [address] [address] Jul, [facility] [address] [address] Jul, Anxiety F41.9 and Arthritis M19.90 [place] [address] [address] Jul, Severe episode of recurrent major depressive disorder, without psychotic features F33.2 and Neurocognitive disorder R41.9 [place] [address] [address] 27 Jun, 2017 [place] [address] [address] 20 Jun, 2017 Lumbar radiculopathy M54.16 ; Essential hypertension I10 ; Anxiety F41.9 and Chronic bronchitis, unspecified chronic bronchitis type J42 [place] [address] [address] 15 Jun, 2017 Anxiety F41.9 [facility] [place] [id number] [place] [address] 14 Jun, 2017 [facility] [id number] [place] [address] Jun, Arthritis M19.90 [facility] [id number] [place] [address] Jun, [facility] [address] [address] Jun, [facility] [id number] [place] [address] May, [place] [address] [address] May, [place] [id number] [place] [address] 10 May, 2017 HPV (human papilloma virus) infection B97.7 [place] [id number] [place] [address] 02 May, 2017 Anxiety F41.9 and Arthritis M19.90 [place] [id number] [place] [address] 18 Apr, 2017 [place] [id number] [place] [address] 15 Apr, 2017 [place] [address] [address] Apr, Colon cancer screening Z12.11 [place] [id number] [place] [address] 11 Apr, 2017 [place] [id number] [place] [address] Apr, [facility] [id number] [place] [address] 07 Apr, 2017 Arthritis M19.90 and Anxiety F41.9 [place] [id number] [place] [address] 30 Mar, 2017 Well woman exam Z01.419 and Colon cancer screening Z12.11 [place] [id number] [place] [address] 14 Mar, 2017 [place] [id number] [place] [address] 13 Mar, 2017 Anxiety F41.9 and Arthritis M19.90 [place] [id number] [place] [address] 19 Feb, 2017 Encounter for immunization Z23 ; Essential hypertension I10 ; Lumbar radiculopathy M54.16 ; Chronic depression F32.9 ; Routine adult health maintenance Z00.00 and Chronic bronchitis, unspecified chronic bronchitis type J42 [place] [id number] [place] [address] Feb, Arthritis M19.90 and Anxiety F41.9 [place] [id number] [place] [address] Jan, Arthritis M19.90 and Anxiety F41.9 [place] [facility] [address] [address] Dec, Arthritis M19.90 and Anxiety F41.9 [facility] [facility] [address] [address] Dec, Lumbar radiculopathy M54.16 and Chronic depression F32.9 [place] [id number] [place] [address] Dec, [facility] [facility] [address] [address] Dec, Foot drop, right foot M21.371 ; Coronary artery disease involving [place] coronary artery, angina presence unspecified, unspecified whether [place] or transplanted heart I25.10 and Depressive disorder, not elsewhere classified F32.9 [facility] [place] [id number] [place] [address] Nov, Arthritis M19.90 [facility] [id number] [place] [address] Nov, [place] [id number] [place] [address] Oct, [place] [id number] [place] [address] Oct, Essential hypertension I10 ; Anxiety F41.9 ; Arthritis M19.90 and Fibromyalgia M79.7 [place] [id number] [place] [address] September, Anxiety F41.9 [place] [address] [place] [address] September, Arthritis M19.90 [place] [id number] [place] [address] Aug, Dental examination Z01.20 [facility] [id number] [place] [address] Aug, Anxiety F41.9 [place] [id number] [place] [address] Aug, [place] [id number] [place] [address] Aug, Anxiety F41.9 [place] [id number] [place] [address] Aug, Essential hypertension I10 and Arthritis M19.90 [place] [id number] [place] [address] Aug, Depressive disorder, not elsewhere classified F32.9 [place] [id number] [place] [address] Jul, Local infection of the skin and subcutaneous tissue, unspecified L08.9 and Abrasion, unspecified lesser toe(s), sequela S90.416S [place] [address] [place] [address] Jul, Prediabetes R73.03 and Essential hypertension I10 [place] [address] [place] [address] Jul, Abnormal glucose level R73.09 [facility] [id number] [place] [id number] Jul, [place] [id number] [place] [address] Jul, Abnormal glucose level R73.09 [place] [address] [place] [address] Jul, Fibromyalgia M79.7 ; Arthritis M19.90 ; Chronic kidney disease, stage 2 (mild) N18.2 and Depressive disorder, not elsewhere classified F32.9 [facility] [id number] [place] [address] Jul, [facility] [id number] [place] [address] Jul, [facility] [address] [address] Jul, [facility] [id number] [place] [address] Jul, Arthritis M19.90 ; Depressive disorder, not elsewhere classified F32.9 ; Fibromyalgia M79.7 and Constipation, unspecified constipation type K59.00 [place] [id number] [place] [address] 15 Jun, 2016 Anxiety F41.9 [facility] [id number] [place] [address] 14 Jun, 2016 Anxiety F41.9 and Fibromyalgia M79.7 [place] [id number] [place] [address] Jun, [facility] [id number] [place] [address] 10 Jun, 2016 Arthritis M19.90 ; Depressive disorder, not elsewhere classified F32.9 ; Barretts esophagus with dysplasia K22.719 ; Edema, unspecified type R60.9 and Fibromyalgia M79.7 [facility] [id number] [place] [address] Jun, [facility] [id number] [place] [address] May, [place] [id number] [place] [address] May, Dyspnea on exertion R06.09 ; Coronary artery disease involving [place] coronary artery, angina presence unspecified, unspecified whether [place] or transplanted heart I25.10 and Arthritis M19.90 [facility] [address] [place] [address] May, [facility] [id number] [place] [address] Apr, Arthritis M19.90 [facility] [id number] [place] [address] Apr, Arthritis M19.90 and Acute cystitis without hematuria N30.00 [facility] [address] [place] [address] Apr, [facility] [id number] [place] [address] Apr, Fibromyalgia M79.7 [facility] [id number] [place] [address] Apr, Arthritis M19.90 and Onychomycosis B35.1 [facility] [id number] [place] [address] Mar, [facility] [id number] [place] [address] Mar, Acute gout involving toe of right foot, unspecified cause M10.9 [facility] [address] [address] Mar, [facility] [id number] [place] [address] Feb, [facility] [address] [place] [address] Feb, [facility] [id number] [place] [address] Feb, Arthritis M19.90 [facility] [address] [address] Jan, [facility] [id number] [address] 19 Jan, 2016 [facility] [id number] [place] [address] Jan, [facility] [id number] [place] [address] Jan, [facility] [id number] [place] [address] Jan, Coronary artery disease involving [place] coronary artery, angina presence unspecified, unspecified whether [place] or transplanted heart I25.10 ; Arthritis M19.90 and Edema, unspecified type R60.9 [facility] [id number] [place] [address] Jan, [facility] [id number] [place] [address] Jan, [facility] [id number] [place] [address] Jan, Anxiety F41.9 and Depressive disorder, not elsewhere classified F32.9 [facility] [id number] [place] [address] Dec, Dementia without behavioral disturbance, unspecified dementia type F03.90 and Reactive depression F32.9 [facility] [address] [place] [address] Dec, [facility] [address] [place] [address] Dec, [facility] [address] [place] [address] Nov, Depressive disorder, not elsewhere classified F32.9 and Anxiety F41.9 [facility] [address] [place] [address] Nov, Coronary artery disease involving [place] coronary artery, angina presence unspecified, unspecified whether [place] or transplanted heart I25.10 ; Fibromyalgia M79.7 ; Arthritis M19.90 ; Anxiety F41.9 ; Hyperlipidemia, unspecified hyperlipidemia type E78.5 and Barretts esophagus with dysplasia K22.719 [facility] [address] [facility] [id number] [place] [address] Nov, IMMUNIZATIONS No Known Immunizations SOCIAL HISTORY Never Assessed REASON FOR VISIT Oxycodone due 10/26 PLAN OF CARE VITAL SIGNS MEDICATIONS Medication Instructions Dosage Frequency Start Date End Date Duration Status Alprazolam 1 MG Orally Twice a day 1 tablet 12h 28 days Active Oxycodone HCl 5 mg Orally every 6 hrs, prn pain 1 tablet September, Active RESULTS No Results PROCEDURES No Known [...]
--- OUTSIDE RECORDS SUMMARY | 2018-12-14 12:01 | XMS REPORT ---
Author Author DELMI BYRNES Organization [facility] Address [address] [place] [address] Care Team Providers Care Differential Repairer Name Role Phone DELMI BYRNES Unavailable PROBLEMS Type Condition ICD9-CM Code TJS68-BW Code Onset Dates Condition Status SNOMED Code Problem Lumbar radiculopathy M54.16 Active 838521804 Problem Chronic bronchitis, unspecified chronic bronchitis type J42 Active 93220098 Problem Chronic depression F32.9 Active 509840526 Problem Stress incontinence N39.3 Active 38343387 Problem Onychomycosis B35.1 Active 741396640 Problem Intractable cyclical vomiting with nausea G43.A1 Active 80858433 Problem Severe episode of recurrent major depressive disorder, without psychotic features F33.2 Active 95331043 Problem Stage 3 chronic kidney disease N18.3 Active 399516124 Problem Pseudobulbar affect F48.2 Active 71764007 Problem Coronary artery disease involving [place] coronary artery, angina presence unspecified, unspecified whether [place] or transplanted heart I25.10 Active 4859643924300 Problem Barretts esophagus with dysplasia K22.719 Active 6781719524732371 Problem Hyperlipidemia, unspecified hyperlipidemia type E78.5 Active 64776117 Problem Anxiety F41.9 Active 59502381 Problem Chronic kidney disease, stage 2 (mild) N18.2 Active 091179921 Problem Arthritis M19.90 Active 2566944 Problem Prediabetes R73.03 Active 255650806 Problem Fibromyalgia M79.7 Active 090260668 Problem Essential hypertension I10 Active 27900013 ALLERGIES Substance Reaction Event Type Date Status Milk Unknown Non Drug Allergy Oct, Active Eggs Unknown Non Drug Allergy Oct, Active ENCOUNTERS Encounter Location Date Diagnosis [facility] [address] [facility] [id number] [address] Dec, [facility] [address] [facility] [id number], [place] [address] Dec, Lumbar radiculopathy M54.16 ; Right ear pain H92.01 and Stress incontinence N39.3 [place] [address] [address] Dec, Anxiety F41.9 [place] [address] [place] [id number] [place] [address] Nov, Prediabetes R73.03 ; Essential hypertension I10 ; Bilateral impacted cerumen H61.23 ; Severe episode of recurrent major depressive disorder, without psychotic features F33.2 and Lumbar radiculopathy M54.16 [place] [address] [address] Oct, [place] [address] [address] Oct, Arthritis M19.90 [place] [address] [address] Oct, Anxiety F41.9 and Arthritis M19.90 [place] [address] [address] Oct, Essential hypertension I10 ; Barretts esophagus with dysplasia K22.719 ; Pseudobulbar affect F48.2 ; Arthritis M19.90 ; Onychomycosis B35.1 and Stage 3 chronic kidney disease N18.3 [place] [address] [place] [id number] [place] [address] September, Arthritis M19.90 [place] [address] [place] [id number] [place] [address] September, [place] [address] [address] Aug, Essential hypertension I10 ; Lumbar radiculopathy M54.16 ; Anxiety F41.9 ; Intractable cyclical vomiting with nausea G43.A1 and Pseudobulbar affect F48.2 [place] [address] [address] Aug, Arthritis M19.90 [facility] [address] [address] Jul, Intractable cyclical vomiting with nausea G43.A1 and Anxiety F41.9 [place] [address] [address] Jul, [place] [address] [address] Jul, Anxiety F41.9 and Arthritis M19.90 [place] [address] [address] Jul, Severe episode of recurrent major depressive disorder, without psychotic features F33.2 and Neurocognitive disorder R41.9 [place] [address] [address] 27 Jun, 2017 [place] [address] [address] Jun, Lumbar radiculopathy M54.16 ; Essential hypertension I10 ; Anxiety F41.9 and Chronic bronchitis, unspecified chronic bronchitis type J42 [place] [address] [address] 15 Jun, 2017 Anxiety F41.9 [place] [address] [address] 14 Jun, 2017 [place] [address] [place] [id number] [place] [address] Jun, Arthritis M19.90 [place] [address] [address] 05 Jun, 2017 [facility] [address] [address] Jun, [place] [address] [address] May, [facility] [address] [id number] [address] May, [facility] [address] [place] [id number] [place] [address] May, HPV (human papilloma virus) infection B97.7 [facility] [address] [place] [id number] [place] [address] May, Anxiety F41.9 and Arthritis M19.90 [place] [address] [place] [id number] [place] [address] Apr, [place] [address] [place] [id number] [place] [address] 15 Apr, 2017 [place] [address] [place] [id number] [place] [address] Apr, Colon cancer screening Z12.11 [place] [address] [place] [id number] [place] [address] Apr, [facility] [address] [place] [id number] [place] [address] Apr, [place] [address] [place] [id number] [place] [address] Apr, Arthritis M19.90 and Anxiety F41.9 [place] [address] [place] [address] 30 Mar, 2017 Well woman exam Z01.419 and Colon cancer screening Z12.11 [facility] [address] [place] [address] 14 Mar, 2017 [place] [address] [place] [id number] [place] [address] Mar, Anxiety F41.9 and Arthritis M19.90 [facility] [address] [place] [id number] [place] [address] 19 Feb, 2017 Encounter for immunization Z23 ; Essential hypertension I10 ; Lumbar radiculopathy M54.16 ; Chronic depression F32.9 ; Routine adult health maintenance Z00.00 and Chronic bronchitis, unspecified chronic bronchitis type J42 [place] [address] [place] [id number] [place] [address] Feb, Arthritis M19.90 and Anxiety F41.9 [place] [address] [place] [id number] [place] [address] Jan, Arthritis M19.90 and Anxiety F41.9 [place] [address] [place] [id number] [place] [address] Dec, Arthritis M19.90 and Anxiety F41.9 [place] [address] [place] [id number] [place] [address] Dec, Lumbar radiculopathy M54.16 and Chronic depression F32.9 [place] [address] [place] [id number] [place] [address] Dec, [place] [address] [place] [id number] [place] [address] Dec, Foot drop, right foot M21.371 ; Coronary artery disease involving [place] coronary artery, angina presence unspecified, unspecified whether [place] or transplanted heart I25.10 and Depressive disorder, not elsewhere classified F32.9 [place] [address] [place] [id number] [place] [address] Nov, Arthritis M19.90 [place] [address] [place] [id number] [place] [address] Nov, [place] [address] [place] [id number] [place] [address] Oct, [place] [address] [place] [id number] [place] [address] Oct, Essential hypertension I10 ; Anxiety F41.9 ; Arthritis M19.90 and Fibromyalgia M79.7 [place] [address] [place] [id number] [place] [address] September, Anxiety F41.9 [place] [address] [place] [address] September, Arthritis M19.90 [place] [address] [place] [id number] [place] [address] Aug, Dental examination Z01.20 [place] [address] [place] [id number] [place] [address] Aug, Anxiety F41.9 [place] [address] [place] [id number] [place] [address] Aug, [place] [address] [place] [id number] [place] [address] Aug, Anxiety F41.9 [place] [address] [place] [id number] [place] [address] Aug, Essential hypertension I10 and Arthritis M19.90 [place] [address] [place] [id number] [place] [address] Aug, Depressive disorder, not elsewhere classified F32.9 [place] [address] [place] [id number] [place] [address] Jul, Local infection of the skin and subcutaneous tissue, unspecified L08.9 and Abrasion, unspecified lesser toe(s), sequela S90.416S [place] [address] [place] [address] Jul, Prediabetes R73.03 and Essential hypertension I10 [place] [address] [place] [address] Jul, Abnormal glucose level R73.09 [facility] [id number] [place] [id number] Jul, [place] [address] [place] [address] Jul, Abnormal glucose level R73.09 [place] [address] [place] [id number] [place] [address] 16 Jul, 2016 Fibromyalgia M79.7 ; Arthritis M19.90 ; Chronic kidney disease, stage 2 (mild) N18.2 and Depressive disorder, not elsewhere classified F32.9 [place] [address] [place] [id number] [place] [address] Jul, [facility] [address] [address] Jul, [facility] [address] [place] [id number] [place] [address] Jul, [place] [address] [address] Jul, Arthritis M19.90 ; Depressive disorder, not elsewhere classified F32.9 ; Fibromyalgia M79.7 and Constipation, unspecified constipation type K59.00 [place] [address] [place] [id number] [place] [address] 15 Jun, 2016 Anxiety F41.9 [place] [address] [place] [id number] [place] [address] 14 Jun, 2016 Anxiety F41.9 and Fibromyalgia M79.7 [place] [address] [place] [id number] [place] [address] 11 Jun, 2016 [place] [address] [place] [id number] [place] [address] Jun, Arthritis M19.90 ; Depressive disorder, not elsewhere classified F32.9 ; Barretts esophagus with dysplasia K22.719 ; Edema, unspecified type R60.9 and Fibromyalgia M79.7 [place] [address] [place] [id number] [place] [address] 06 Jun, 2016 [place] [address] [place] [id number] [place] [address] May, [facility] [address] [address] May, Dyspnea on exertion R06.09 ; Coronary artery disease involving [place] coronary artery, angina presence unspecified, unspecified whether [place] or transplanted heart I25.10 and Arthritis M19.90 [facility] [address] [place] [id number] [place] [address] May, [facility] [address] [place] [id number] [place] [address] Apr, Arthritis M19.90 [facility] [address] [address] Apr, Arthritis M19.90 and Acute cystitis without hematuria N30.00 [facility] [address] [place] [address] Apr, [facility] [address] [place] [id number] [place] [address] Apr, Fibromyalgia M79.7 [facility] [address] [place] [id number] [place] [address] Apr, Arthritis M19.90 and Onychomycosis B35.1 [facility] [address] [place] [id number] [place] [address] Mar, [facility] [address] [place] [id number] [place] [address] Mar, Acute gout involving toe of right foot, unspecified cause M10.9 [facility] [address] [place] [id number] [place] [address] Mar, [facility] [address] [place] [id number] [place] [address] Feb, [facility] [address] [address] Feb, [facility] [address] [place] [id number] [place] [address] Feb, Arthritis M19.90 [facility] [address] [place] [address] 23 Jan, 2015 [facility] [address] [place] [id number] [place] [address] 19 Jan, 2015 [facility] [address] [place] [id number] [place] [address] 16 Jan, 2015 [facility] [address] [place] [address] 16 Jan, 2015 [facility] [address] [place] [id number] [place] [address] 12 Jan, 2016 Coronary artery disease involving [place] coronary artery, angina presence unspecified, unspecified whether [place] or transplanted heart I25.10 ; Arthritis M19.90 and Edema, unspecified type R60.9 [facility] [address] [place] [address] 07 Jan, 2016 [facility] [address] [place] [id number] [place] [address] Jan, [facility] [address] [place] [id number] [place] [address] Jan, Anxiety F41.9 and Depressive disorder, not elsewhere classified F32.9 [facility] [address] [place] [address] Dec, Dementia without behavioral disturbance, unspecified dementia type F03.90 and Reactive depression F32.9 [facility] [address] [address] Dec, [facility] [address] [place] [id number] [place] [address] Dec, [facility] [address] [place] [id number] [place] [address] Nov, Depressive disorder, not elsewhere classified F32.9 and Anxiety F41.9 [facility] [address] [place] [address] Nov, Coronary artery disease involving [place] coronary artery, angina presence unspecified, unspecified whether [place] or transplanted heart I25.10 ; Fibromyalgia M79.7 ; Arthritis M19.90 ; Anxiety F41.9 ; Hyperlipidemia, unspecified hyperlipidemia type E78.5 and Barretts esophagus with dysplasia K22.719 [facility] [address] [facility] [id number] [address] Nov, IMMUNIZATIONS No Known Immunizations SOCIAL HISTORY Never Assessed REASON FOR VISIT Blood pressure, PT report it has been low when she monitors it at home -Prudencio markham MA , PT needs a referral to a pediatrist due to infected/in grown toe nails. -Sergio YO , PT reports her left leg has been swollen for the last few months. PT notes her hip/tail pain have been causing discomfort. , PT needs refills PLAN OF CARE Activity Details Follow Up 2 Months Reason: VITAL SIGNS Height 67 in 2017-10-13 Weight 186.7 lbs 2017-10-13 Temperature 97.7 degrees Fahrenheit 2017-10-13 Heart Rate 67 bpm 2017-10-13 Respiratory Rate 18 2017-10-13 BMI 29.24 kg/m2 2017-10-13 Blood pressure systolic 108 mmHg 2017-10-13 Blood pressure diastolic 64 mmHg 2017-10-13 MEDICATIONS Medication Instructions Dosage Frequency Start Date End Date Duration Status Atorvastatin Calcium 80 MG Orally at bedtime 1 tablet Active Exelon 4.6 MG/24HR Transdermal Once a day 1 patch to skin 24h Active Ranitidine HCl 150 MG Orally twice a day 1 tablet at bedtime 12h Active Colace 100 mg Orally Once a day 1 capsule as needed 24h 30 Active Duloxetine HCl 30 MG Orally Once a day 1 capsule 24h Active Multivitamin Adult - Orally Once a day 1 tablet 24h 30 Active Pantoprazole Sodium 40 mg Orally Once a day 1 tablet 24h Active Alprazolam 1 MG Orally Twice a day 1 tablet 12h 28 days Active Toviaz 4 MG Orally Once a day 1 tablet 24h Active Lisinopril 40 MG Orally Once a day 1 tablet 24h Active Folic Acid 1 MG Orally twice a day 1 tablet 12h Active Metoprolol Tartrate 50 mg Orally Twice a day 1 tablet with food 12h 30 Active Cholecalciferol 1000 UNIT Orally Once a day 2 capsules 24h 30 days Active Oxycodone HCl 5 mg Orally every 6 hrs, prn pain 1 tablet September, 28 days Active Premarin 30GM Vaginal Insert 1 Gram every night at bedtime twice a week Active ProAir HFA 108 (90 Base) MCG/ACT Inhalation every 6 hrs 2 puffs as needed 6h Active Cetirizine HCl 10 TAKE 1 TABLET BY MOUTH DAILY 30 Active Nuedexta 20-10 MG Orally 2 times a day 1 capsule 12h Oct, 30 day(s) Active Adjust Bath/Shower Seat/Back - use in shower Jun, Active Aspirin 325 MG Orally Once a day 1 tablet 24h 30 Active RESULTS No Results PROCEDURES No Known [...]
--- OUTSIDE RECORDS SUMMARY | 2018-12-14 12:02 | XMS REPORT ---
Author Author DELMI BYRNES Organization [facility] Address [address] [place] [address] Care Team Providers Care Investigator Internal Affairs Name Role Phone DELMI BYRNES Unavailable PROBLEMS Type Condition ICD9-CM Code [id number] Code Onset Dates Condition Status SNOMED Code Problem Essential hypertension I10 Active 16491449 Problem Chronic depression F32.9 Active 408152477 Problem Lumbar radiculopathy M54.16 Active 511173765 Problem Onychomycosis B35.1 Active 308166007 Problem Stage 3 chronic kidney disease N18.3 Active 656730895 Problem Severe episode of recurrent major depressive disorder, without psychotic features F33.2 Active 63670811 Problem Chronic bronchitis, unspecified chronic bronchitis type J42 Active 76031521 Problem Pseudobulbar affect F48.2 Active 69181791 Problem Intractable cyclical vomiting with nausea G43.A1 Active 94023485 Problem Coronary artery disease involving zuni coronary artery, angina presence unspecified, unspecified whether zuni or transplanted heart I25.10 Active 8067468290864 Problem Hyperlipidemia, unspecified hyperlipidemia type E78.5 Active 84349153 Problem Fibromyalgia M79.7 Active 460692746 Problem Anxiety F41.9 Active 85388212 Problem Barretts esophagus with dysplasia K22.719 Active 3359270742857031 Problem Chronic kidney disease, stage 2 (mild) N18.2 Active 959585047 Problem Arthritis M19.90 Active 7944838 Problem Prediabetes R73.03 Active 239984704 ALLERGIES Substance Reaction Event Type Date Status Milk Unknown Non Drug Allergy Aug, Active Eggs Unknown Non Drug Allergy Aug, Active ENCOUNTERS Encounter Location Date Diagnosis [facility] [address] [facility] [id number] [address] Dec, [facility] [address] [facility] [id number] [address] Nov, Prediabetes R73.03 ; Essential hypertension I10 ; Bilateral impacted cerumen H61.23 ; Severe episode of recurrent major depressive disorder, without psychotic features F33.2 and Lumbar radiculopathy M54.16 [place] [address] [place] [address] Oct, [place] [address] [place] [id number] [place] [address] Oct, Arthritis M19.90 [place] [address] [place] [id number] [place] [address] Oct, Anxiety F41.9 and Arthritis M19.90 [place] [address] [place] [id number] [place] [address] Oct, Essential hypertension I10 ; Barretts esophagus with dysplasia K22.719 ; Pseudobulbar affect F48.2 ; Arthritis M19.90 ; Onychomycosis B35.1 and Stage 3 chronic kidney disease N18.3 [place] [address] [place] [id number] [place] [address] September, Arthritis M19.90 [place] [address] [place] [id number] [place] [address] September, [place] [address] [place] [id number] [place] [address] Aug, Essential hypertension I10 ; Lumbar radiculopathy M54.16 ; Anxiety F41.9 ; Intractable cyclical vomiting with nausea G43.A1 and Pseudobulbar affect F48.2 [place] [address] [place] [id number] [place] [address] Aug, Arthritis M19.90 [place] [address] [place] [id number] [place] [address] Jul, Intractable cyclical vomiting with nausea G43.A1 and Anxiety F41.9 [place] [address] [place] [id number] [place] [address] Jul, [place] [address] [place] [id number] [place] [address] Jul, Anxiety F41.9 and Arthritis M19.90 [place] [address] [address] Jul, Severe episode of recurrent major depressive disorder, without psychotic features F33.2 and Neurocognitive disorder R41.9 [place] [address] [address] 27 Jun, 2017 [place] [address] [address] Jun, Lumbar radiculopathy M54.16 ; Essential hypertension I10 ; Anxiety F41.9 and Chronic bronchitis, unspecified chronic bronchitis type J42 [place] [address] [address] 15 Jun, 2017 Anxiety F41.9 [place] [address] [address] 14 Jun, 2017 [place] [address] [place] [id number] [place] [address] 12 Jun, 2017 Arthritis M19.90 [place] [address] [place] [id number] [place] [address] Jun, [place] [address] [place] [id number] [place] [address] Jun, [place] [address] [place] [id number] [place] [address] May, [place] [address] [address] May, [place] [address] [address] May, HPV (human papilloma virus) infection B97.7 [place] [address] [address] May, Anxiety F41.9 and Arthritis M19.90 [facility] [address] [place] [id number] [place] [address] 18 Apr, 2017 [facility] [address] [place] [id number] [place] [address] Apr, [facility] [address] [place] [id number] [place] [address] Apr, Colon cancer screening Z12.11 [place] [address] [place] [id number] [place] [address] Apr, [place] [address] [address] Apr, [place] [address] [place] [id number] [place] [address] 07 Apr, 2017 Arthritis M19.90 and Anxiety F41.9 [place] [address] [place] [id number] [place] [address] 30 Mar, 2017 Well woman exam Z01.419 and Colon cancer screening Z12.11 [place] [address] [place] [id number] [place] [address] 14 Mar, 2017 [place] [address] [place] [id number] [place] [address] Mar, Anxiety F41.9 and Arthritis M19.90 [place] [address] [place] [id number] [place] [address] Feb, Encounter for immunization Z23 ; Essential hypertension I10 ; Lumbar radiculopathy M54.16 ; Chronic depression F32.9 ; Routine adult health maintenance Z00.00 and Chronic bronchitis, unspecified chronic bronchitis type J42 [place] [address] [place] [id number] [place] [address] 16 Feb, 2017 Arthritis M19.90 and Anxiety F41.9 [place] [address] [place] [id number] [place] [address] Jan, Arthritis M19.90 and Anxiety F41.9 [facility] [address] [place] [id number] [place] [address] Dec, Arthritis M19.90 and Anxiety F41.9 [facility] [address] [place] [id number] [place] [address] Dec, Lumbar radiculopathy M54.16 and Chronic depression F32.9 [facility] [address] [place] [id number] [place] [address] Dec, [facility] [address] [place] [id number] [place] [address] Dec, Foot drop, right foot M21.371 ; Coronary artery disease involving zuni coronary artery, angina presence unspecified, unspecified whether zuni or transplanted heart I25.10 and Depressive disorder, not elsewhere classified F32.9 [place] [address] [address] Nov, Arthritis M19.90 [facility] [address] [place] [id number] [place] [address] Nov, [place] [address] [address] Oct, [place] [address] [place] [id number] [place] [address] Oct, Essential hypertension I10 ; Anxiety F41.9 ; Arthritis M19.90 and Fibromyalgia M79.7 [facility] [address] [place] [id number] [place] [address] September, Anxiety F41.9 [place] [address] [address] September, Arthritis M19.90 [facility] [address] [place] [id number] [place] [address] Aug, Dental examination Z01.20 [place] [address] [place] [address] Aug, Anxiety F41.9 [facility] [address] [place] [address] Aug, [facility] [address] [place] [address] 18 Aug, 2016 Anxiety F41.9 [facility] [address] [place] [id number] [place] [address] Aug, Essential hypertension I10 and Arthritis M19.90 [place] [address] [place] [address] Aug, Depressive disorder, not elsewhere classified F32.9 [place] [address] [place] [address] 29 Jul, 2016 Local infection of the skin and subcutaneous tissue, unspecified L08.9 and Abrasion, unspecified lesser toe(s), sequela S90.416S [place] [address] [address] Jul, Prediabetes R73.03 and Essential hypertension I10 [place] [address] [place] [address] Jul, Abnormal glucose level R73.09 [facility] [id number] [id number] Jul, [place] [address] [place] [address] 17 Jul, 2016 Abnormal glucose level R73.09 [place] [address] [address] 16 Jul, 2016 Fibromyalgia M79.7 ; Arthritis M19.90 ; Chronic kidney disease, stage 2 (mild) N18.2 and Depressive disorder, not elsewhere classified F32.9 [place] [address] [address] 14 Jul, 2016 [place] [address] [place] [id number] [address] Jul, [facility] [address] [place] [id number] [place] [address] Jul, [facility] [address] [place] [id number] [place] [address] Jul, Arthritis M19.90 ; Depressive disorder, not elsewhere classified F32.9 ; Fibromyalgia M79.7 and Constipation, unspecified constipation type K59.00 [place] [address] [place] [id number] [place] [address] 15 Jun, 2016 Anxiety F41.9 [place] [address] [place] [id number] [place] [address] 14 Jun, 2016 Anxiety F41.9 and Fibromyalgia M79.7 [place] [address] [place] [id number] [place] [address] 11 Jun, 2016 [place] [address] [place] [id number] [place] [address] Jun, Arthritis M19.90 ; Depressive disorder, not elsewhere classified F32.9 ; Barretts esophagus with dysplasia K22.719 ; Edema, unspecified type R60.9 and Fibromyalgia M79.7 [place] [address] [place] [address] 06 Jun, 2016 [place] [address] [place] [id number] [place] [address] May, [place] [address] [place] [id number] [place] [address] May, Dyspnea on exertion R06.09 ; Coronary artery disease involving zuni coronary artery, angina presence unspecified, unspecified whether zuni or transplanted heart I25.10 and Arthritis M19.90 [place] [address] [place] [address] May, [place] [address] [place] [id number] [place] [address] Apr, Arthritis M19.90 [facility] [address] [place] [address] Apr, Arthritis M19.90 and Acute cystitis without hematuria N30.00 [facility] [address] [facility] [place] [address] Apr, [facility] [address] [place] [address] Apr, Fibromyalgia M79.7 [facility] [address] [place] [id number] [place] [address] Apr, Arthritis M19.90 and Onychomycosis B35.1 [facility] [address] [place] [id number] [place] [address] Mar, [facility] [address] [place] [id number] [place] [address] Mar, Acute gout involving toe of right foot, unspecified cause M10.9 [facility] [address] [place] [id number] [place] [address] Mar, [facility] [address] [place] [id number] [place] [address] Feb, [facility] [address] [place] [address] Feb, [facility] [address] [place] [id number] [place] [address] Feb, Arthritis M19.90 [facility] [address] [address] 23 Jan, 2016 [facility] [address] [place] [id number] [place] [address] 19 Jan, 2016 [facility] [address] [address] 16 Jan, 2016 [facility] [address] [place] [id number] [place] [address] 16 Jan, 2016 [place] [address] [place] [address] Jan, Coronary artery disease involving zuni coronary artery, angina presence unspecified, unspecified whether zuni or transplanted heart I25.10 ; Arthritis M19.90 and Edema, unspecified type R60.9 [facility] [address] [place] [id number] [place] [address] Jan, [place] [address] [place] [id number] [place] [address] Jan, [place] [address] [place] [id number] [place] [address] Jan, Anxiety F41.9 and Depressive disorder, not elsewhere classified F32.9 [place] [address] [place] [id number] [place] [address] Dec, Dementia without behavioral disturbance, unspecified dementia type F03.90 and Reactive depression F32.9 [place] [address] [place] [id number] [place] [address] Dec, [place] [address] [place] [id number] [place] [address] Dec, [place] [address] [place] [id number] [place] [address] Nov, Depressive disorder, not elsewhere classified F32.9 and Anxiety F41.9 [place] [address] [place] [id number] [place] [address] Nov, Coronary artery disease involving zuni coronary artery, angina presence unspecified, unspecified whether zuni or transplanted heart I25.10 ; Fibromyalgia M79.7 ; Arthritis M19.90 ; Anxiety F41.9 ; Hyperlipidemia, unspecified hyperlipidemia type E78.5 and Barretts esophagus with dysplasia K22.719 [place] [address] [place] [address] Nov, IMMUNIZATIONS No Known Immunizations SOCIAL HISTORY Never Assessed REASON FOR VISIT Blood Pressure -TX PLAN OF CARE Activity Details Follow Up 4 Weeks Reason: VITAL SIGNS Height 67 in 2017-09-08 Weight 181 lbs 2017-09-08 Temperature 98.1 degrees Fahrenheit 2017-09-08 Heart Rate 80 bpm 2017-09-08 Respiratory Rate 18 2017-09-08 BMI 28.35 kg/m2 2017-09-08 Blood pressure systolic 112 mmHg 2017-09-08 Blood pressure diastolic 76 mmHg 2017-09-08 MEDICATIONS Medication Instructions Dosage Frequency Start Date End Date Duration Status Metoprolol Tartrate 50 mg Orally Twice a day 1 tablet with food 12h 30 Active ProAir HFA 108 (90 Base) MCG/ACT Inhalation every 6 hrs 2 puffs as needed 6h Active Alprazolam 1 MG Orally Twice a day 1 tablet 12h 28 days Active Multivitamin Adult - Orally Once a day 1 tablet 24h 30 Active Atorvastatin Calcium 80 MG Orally at bedtime 1 tablet Active Folic Acid 1 MG Orally twice a day 1 tablet 12h Active Toviaz 4 MG Orally Once a day 1 tablet 24h Active Adjust Bath/Shower Seat/Back - use in shower Jun, Active Diclofenac Sodium 75 Orally bid 1 tablet with food or milk 12h 30 Active Exelon 4.6 MG/24HR Transdermal Once a day 1 patch to skin 24h Active Cholecalciferol 1000 UNIT Orally Once a day 2 capsules 24h 30 days Active Amlodipine Besylate 10 TAKE 1 TABLET BY MOUTH DAILY 30 Active Reglan 10 MG Orally qid, ac and hs as directed Jul, Active Atorvastatin Calcium 40 TAKE 1 TABLET BY MOUTH AT BEDTIME 30 Active Ranitidine HCl 150 MG Orally twice a day 1 tablet at bedtime 12h Active Premarin 30GM Vaginal Insert 1 Gram every night at bedtime twice a week Active Oxycodone HCl 5 mg Orally every 6 hrs, prn pain 1 tablet Aug, 28 days Active Aspirin 325 MG Orally Once a day 1 tablet 24h 30 Active Cetirizine HCl 10 TAKE 1 TABLET BY MOUTH DAILY 30 Active Pantoprazole Sodium 40 mg Orally Once a day 1 tablet 24h Active Lisinopril 40 MG Orally Once a day 1 tablet 24h Active Colace 100 mg Orally Once a day 1 capsule as needed 24h 30 Active Duloxetine HCl 30 MG Orally Once a day 1 capsule 24h Active Lisinopril 40 TAKE 1 TABLET BY MOUTH DAILY 30 Active RESULTS No Results PROCEDURES No [...]
--- OUTSIDE RECORDS SUMMARY | 2018-12-14 12:02 | XMS REPORT ---
Author Author DELMI BYRNES Organization [facility] Address [address] [place] [address] Care Team Providers Care Sales Support Advisor Name Role Phone DELMI BYRNES Unavailable PROBLEMS Type Condition ICD9-CM Code JTC93-CB Code Onset Dates Condition Status SNOMED Code Problem Essential hypertension I10 Active 88908587 Problem Chronic depression F32.9 Active 458502607 Problem Lumbar radiculopathy M54.16 Active 975964473 Problem Onychomycosis B35.1 Active 196852467 Problem Stage 3 chronic kidney disease N18.3 Active 785601294 Problem Severe episode of recurrent major depressive disorder, without psychotic features F33.2 Active 86802620 Problem Chronic bronchitis, unspecified chronic bronchitis type J42 Active 19569411 Problem Pseudobulbar affect F48.2 Active 72897153 Problem Intractable cyclical vomiting with nausea G43.A1 Active 64599939 Problem Coronary artery disease involving deering coronary artery, angina presence unspecified, unspecified whether deering or transplanted heart I25.10 Active 1905807774586 Problem Hyperlipidemia, unspecified hyperlipidemia type E78.5 Active 75909066 Problem Fibromyalgia M79.7 Active 492424097 Problem Anxiety F41.9 Active 53085623 Problem Barretts esophagus with dysplasia K22.719 Active 5312395177986657 Problem Chronic kidney disease, stage 2 (mild) N18.2 Active 597231356 Problem Arthritis M19.90 Active 4271411 Problem Prediabetes R73.03 Active [id number] ALLERGIES No Information ENCOUNTERS Encounter Location Date Diagnosis [facility] [address] [facility]NOTE [address] [id number] [address] Dec, [facility] [id number] [address] Nov, Prediabetes R73.03 ; Essential hypertension I10 ; Bilateral impacted cerumen H61.23 ; Severe episode of recurrent major depressive disorder, without psychotic features F33.2 and Lumbar radiculopathy M54.16 [place] [id number] [place] [address] Oct, [facility] [id number] [place] [address] 14 Oct, 2017 Arthritis M19.90 [place] [id number] [place] [address] Oct, Anxiety F41.9 and Arthritis M19.90 [place] [id number] [place] [address] Oct, Essential hypertension I10 ; Barretts esophagus with dysplasia K22.719 ; Pseudobulbar affect F48.2 ; Arthritis M19.90 ; Onychomycosis B35.1 and Stage 3 chronic kidney disease N18.3 [place] [id number] [place] [address] September, Arthritis M19.90 [place] [id number] [place] [address] September, [place] [id number] [place] [phone] Aug, Essential hypertension I10 ; Lumbar radiculopathy M54.16 ; Anxiety F41.9 ; Intractable cyclical vomiting with nausea G43.A1 and Pseudobulbar affect F48.2 [place] [id number] [place] [address] Aug, Arthritis M19.90 [place] [id number] [place] [address] Jul, Intractable cyclical vomiting with nausea G43.A1 and Anxiety F41.9 [place] [id number] [place] [phone] Jul, [place] [id number] [place] [address] Jul, Anxiety F41.9 and Arthritis M19.90 [facility] [address] [address] Jul, Severe episode of recurrent major depressive disorder, without psychotic features F33.2 and Neurocognitive disorder R41.9 [place] [address] [address] 27 Jun, 2017 [place] [address] [address] 20 Jun, 2017 Lumbar radiculopathy M54.16 ; Essential hypertension I10 ; Anxiety F41.9 and Chronic bronchitis, unspecified chronic bronchitis type J42 [place] [address] [address] 15 Jun, 2017 Anxiety F41.9 [place] [address] [address] 14 Jun, 2017 [place] [address] [address] Jun, Arthritis M19.90 [place] [address] [address] 05 Jun, 2017 [place] [address] [address] 05 Jun, 2017 [place] [address] [address] May, [place] [id number] [place] [phone] May, [place] [address] [address] May, HPV (human papilloma virus) infection B97.7 [place] [id number] [place] [phone] May, Anxiety F41.9 and Arthritis M19.90 [place] [address] [address] 18 Apr, 2017 [facility] [id number] [place] [phone] 15 Apr, 2017 [facility] [id number] [place] [address] 13 Apr, 2017 Colon cancer screening Z12.11 [facility] [id number] [place] [address] 11 Apr, 2017 [facility] [id number] [place] [phone] Apr, [place] [id number] [place] [id number] 07 Apr, 2017 Arthritis M19.90 and Anxiety F41.9 [place] [id number] [place] [address] 30 Mar, 2017 Well woman exam Z01.419 and Colon cancer screening Z12.11 [place] [id number] [place] [id number] 14 Mar, 2017 [place] [id number] [place] [address] 13 Mar, 2017 Anxiety F41.9 and Arthritis M19.90 [place] [id number] [place] [address] 19 Feb, 2017 Encounter for immunization Z23 ; Essential hypertension I10 ; Lumbar radiculopathy M54.16 ; Chronic depression F32.9 ; Routine adult health maintenance Z00.00 and Chronic bronchitis, unspecified chronic bronchitis type J42 [place] [id number] [place] [address] 16 Feb, 2017 Arthritis M19.90 and Anxiety F41.9 [place] [id number] [place] [address] 18 Jan, 2017 Arthritis M19.90 and Anxiety F41.9 [place] [id number] [place] [address] Dec, Arthritis M19.90 and Anxiety F41.9 [place] [id number] [place] [address] Dec, Lumbar radiculopathy M54.16 and Chronic depression F32.9 [place] [id number] [place] [address] Dec, [place] [id number] [place] [address] Dec, Foot drop, right foot M21.371 ; Coronary artery disease involving deering coronary artery, angina presence unspecified, unspecified whether deering or transplanted heart I25.10 and Depressive disorder, not elsewhere classified F32.9 [place] [id number] [place] [address] Nov, Arthritis M19.90 [place] [id number] [place] [phone] Nov, [place] [id number] [place] [address] Oct, [place] [id number] [place] [address] Oct, Essential hypertension I10 ; Anxiety F41.9 ; Arthritis M19.90 and Fibromyalgia M79.7 [place] [id number] [place] [address] September, Anxiety F41.9 [place] [id number] [place] [address] September, Arthritis M19.90 [place] [address] [address] Aug, Dental examination Z01.20 [place] [id number] [place] [address] Aug, Anxiety F41.9 [place] [address] [address] Aug, [place] [id number] [place] [address] 18 Aug, 2016 Anxiety F41.9 [place] [address] [place] [address] 13 Aug, 2016 Essential hypertension I10 and Arthritis M19.90 [place] [id number] [place] [address] 10 Aug, 2016 Depressive disorder, not elsewhere classified F32.9 [place] [id number] [place] [address] 29 Jul, 2016 Abrasion, unspecified lesser toe(s), sequela S90.416S and Local infection of the skin and subcutaneous tissue, unspecified L08.9 [place] [address] [place] [address] Jul, Prediabetes R73.03 and Essential hypertension I10 [place] [address] [place] [address] Jul, Abnormal glucose level R73.09 [place] [id number] [place] [id number] Jul, [place] [id number] [place] [address] 17 Jul, 2016 Abnormal glucose level R73.09 [place] [address] [place] [address] 16 Jul, 2016 Fibromyalgia M79.7 ; Arthritis M19.90 ; Chronic kidney disease, stage 2 (mild) N18.2 and Depressive disorder, not elsewhere classified F32.9 [place] [address] [place] [address] 14 Jul, 2016 [place] [id number] [place] [address] 08 Jul, 2016 [place] [id number] [place] [address] Jul, [facility] [id number] [place] [address] Jul, Arthritis M19.90 ; Depressive disorder, not elsewhere classified F32.9 ; Fibromyalgia M79.7 and Constipation, unspecified constipation type K59.00 [place] [address] [address] 15 Jun, 2016 Anxiety F41.9 [place] [id number] [place] [address] Jun, Anxiety F41.9 and Fibromyalgia M79.7 [place] [id number] [place] [address] Jun, [place] [id number] [place] [address] Jun, Arthritis M19.90 ; Depressive disorder, not elsewhere classified F32.9 ; Barretts esophagus with dysplasia K22.719 ; Edema, unspecified type R60.9 and Fibromyalgia M79.7 [place] [id number] [place] [address] Jun, [place] [id number] [place] [address] May, [place] [id number] [place] [address] May, Dyspnea on exertion R06.09 ; Coronary artery disease involving deering coronary artery, angina presence unspecified, unspecified whether deering or transplanted heart I25.10 and Arthritis M19.90 [place] [id number] [place] [address] May, [place] [id number] [place] [address] Apr, Arthritis M19.90 [place] [address] [id number] [address] Apr, Arthritis M19.90 and Acute cystitis without hematuria N30.00 [facility] [address] [place] [address] Apr, [facility] [id number] [place] [address] Apr, Fibromyalgia M79.7 [facility] [id number] [place] [address] Apr, Arthritis M19.90 and Onychomycosis B35.1 [facility] [id number] [place] [address] Mar, [facility] [id number] [place] [address] Mar, Acute gout involving toe of right foot, unspecified cause M10.9 [facility] [id number] [place] [address] Mar, [facility] [id number] [place] [address] Feb, [facility] [id number] [place] [phone] Feb, [facility] [id number] [place] [address] Feb, Arthritis M19.90 [facility] [id number] [place] [address] 23 Jan, 2016 [facility] [id number] [place] [address] 19 Jan, 2016 [facility] [id number] [place] [address] 16 Jan, 2016 [facility] [id number] [place] [address] Jan, [facility] [id number] [place] [address] Jan, Coronary artery disease involving deering coronary artery, angina presence unspecified, unspecified whether deering or transplanted heart I25.10 ; Arthritis M19.90 and Edema, unspecified type R60.9 [place] [address] [place] [address] Jan, [place] [id number] [place] [address] Jan, [place] [id number] [place] [address] Jan, Anxiety F41.9 and Depressive disorder, not elsewhere classified F32.9 [place] [id number] [place] [address] Dec, Dementia without behavioral disturbance, unspecified dementia type F03.90 and Reactive depression F32.9 [place] [id number] [place] [address] Dec, [place] [id number] [place] [address] Dec, [place] [id number] [place] [address] Nov, Depressive disorder, not elsewhere classified F32.9 and Anxiety F41.9 [place] [id number] [place] [address] Nov, Coronary artery disease involving deering coronary artery, angina presence unspecified, unspecified whether deering or transplanted heart I25.10 ; Fibromyalgia M79.7 ; Arthritis M19.90 ; Anxiety F41.9 ; Hyperlipidemia, unspecified hyperlipidemia type E78.5 and Barretts esophagus with dysplasia K22.719 [place] [address] [place] [address] Nov, IMMUNIZATIONS No Known Immunizations SOCIAL HISTORY Never Assessed REASON FOR VISIT Oxycodone 09/01 PLAN OF CARE VITAL SIGNS MEDICATIONS Medication Instructions Dosage Frequency Start Date End Date Duration Status Oxycodone HCl 5 mg Orally every 6 hrs, prn pain 1 tablet Aug, 28 days Active RESULTS No Results PROCEDURES [...]
--- OUTSIDE RECORDS SUMMARY | 2018-12-14 12:02 | XMS REPORT ---
Author Author DELMI BYRNES Organization [facility] Address [address] [place] [address] Care Team Providers Care Retrimmer Name Role Phone DELMI BYRNES Unavailable PROBLEMS Type Condition ICD9-CM Code YEV12-AR Code Onset Dates Condition Status SNOMED Code Problem Essential hypertension I10 Active 38232536 Problem Chronic depression F32.9 Active 751639383 Problem Lumbar radiculopathy M54.16 Active 580506689 Problem Onychomycosis B35.1 Active 417592030 Problem Stage 3 chronic kidney disease N18.3 Active 233373793 Problem Severe episode of recurrent major depressive disorder, without psychotic features F33.2 Active 07851600 Problem Chronic bronchitis, unspecified chronic bronchitis type J42 Active 82169311 Problem Pseudobulbar affect F48.2 Active 95593593 Problem Intractable cyclical vomiting with nausea G43.A1 Active 28826534 Problem Coronary artery disease involving [place] coronary artery, angina presence unspecified, unspecified whether [place] or transplanted heart I25.10 Active 4375495178528 Problem Hyperlipidemia, unspecified hyperlipidemia type E78.5 Active 93375234 Problem Fibromyalgia M79.7 Active 416104625 Problem Anxiety F41.9 Active 34241844 Problem Barretts esophagus with dysplasia K22.719 Active 4939454130197240 Problem Chronic kidney disease, stage 2 (mild) N18.2 Active 328270239 Problem Arthritis M19.90 Active 4010700 Problem Prediabetes R73.03 Active 512323791 ALLERGIES No Information ENCOUNTERS Encounter Location Date Diagnosis [facility] [id number] [address] Dec, [facility] [address] [address] Dec, [facility] [id number] [address] Dec, [place] [id number] [place] [address] Nov, Prediabetes R73.03 ; Essential hypertension I10 ; Bilateral impacted cerumen H61.23 ; Severe episode of recurrent major depressive disorder, without psychotic features F33.2 and Lumbar radiculopathy M54.16 [place] [id number] [place] [address] Oct, [facility] [id number] [place] [address] Oct, Arthritis M19.90 [place] [address] [address] Oct, Anxiety F41.9 and Arthritis M19.90 [place] [id number] [place] [address] Oct, Essential hypertension I10 ; Barretts esophagus with dysplasia K22.719 ; Pseudobulbar affect F48.2 ; Arthritis M19.90 ; Onychomycosis B35.1 and Stage 3 chronic kidney disease N18.3 [place] [id number] [place] [address] September, Arthritis M19.90 [place] [id number] [place] [address] September, [place] [id number] [place] [address] Aug, Essential hypertension I10 ; Lumbar radiculopathy M54.16 ; Anxiety F41.9 ; Intractable cyclical vomiting with nausea G43.A1 and Pseudobulbar affect F48.2 [place] [id number] [place] [address] Aug, Arthritis M19.90 [place] [id number] [place] [address] Jul, Intractable cyclical vomiting with nausea G43.A1 and Anxiety F41.9 [facility] [id number] [place] [address] Jul, [facility] [id number] [place] [address] 09 Jul, 2017 Anxiety F41.9 and Arthritis M19.90 [place] [address] [address] 07 Jul, 2017 Severe episode of recurrent major depressive disorder, without psychotic features F33.2 and Neurocognitive disorder R41.9 [facility] [address] [address] 27 Jun, 2017 [place] [address] [address] 20 Jun, 2017 Lumbar radiculopathy M54.16 ; Essential hypertension I10 ; Anxiety F41.9 and Chronic bronchitis, unspecified chronic bronchitis type J42 [place] [id number] [place] [address] 15 Jun, 2017 Anxiety F41.9 [place] [id number] [place] [address] 14 Jun, 2017 [facility] [id number] [place] [address] 12 Jun, 2017 Arthritis M19.90 [facility] [id number] [place] [address] 05 Jun, 2017 [facility] [id number] [place] [address] Jun, [facility] [address] [address] May, [facility] [id number] [place] [address] May, [place] [address] [address] May, HPV (human papilloma virus) infection B97.7 [place] [id number] [place] [address] May, Anxiety F41.9 and Arthritis M19.90 [place] [id number] [place] [address] 18 Apr, 2017 [place] [id number] [place] [address] Apr, [place] [id number] [place] [address] Apr, Colon cancer screening Z12.11 [facility] [place] [id number] [place] [address] 11 Apr, 2017 [place] [id number] [place] [address] Apr, [place] [id number] [place] [address] Apr, Arthritis M19.90 and Anxiety F41.9 [facility] [id number] [place] [address] 30 Mar, 2017 Well woman exam Z01.419 and Colon cancer screening Z12.11 [place] [id number] [place] [address] 14 Mar, 2017 [place] [id number] [place] [address] Mar, Anxiety F41.9 and Arthritis M19.90 [place] [id number] [place] [address] Feb, Encounter for immunization Z23 ; Essential hypertension I10 ; Lumbar radiculopathy M54.16 ; Chronic depression F32.9 ; Routine adult health maintenance Z00.00 and Chronic bronchitis, unspecified chronic bronchitis type J42 [place] [id number] [place] [address] Feb, Arthritis M19.90 and Anxiety F41.9 [facility] [id number] [place] [address] Jan, Arthritis M19.90 and Anxiety F41.9 [facility] [id number] [place] [address] Dec, Arthritis M19.90 and Anxiety F41.9 [facility] [id number] [place] [address] Dec, Lumbar radiculopathy M54.16 and Chronic depression F32.9 [place] [id number] [place] [address] Dec, [place] [id number] [place] [address] Dec, Foot drop, right foot M21.371 ; Coronary artery disease involving [place] coronary artery, angina presence unspecified, unspecified whether [place] or transplanted heart I25.10 and Depressive disorder, not elsewhere classified F32.9 [facility] [id number] [place] [address] Nov, Arthritis M19.90 [facility] [id number] [place] [address] Nov, [facility] [id number] [place] [address] Oct, [facility] [id number] [place] [address] Oct, Essential hypertension I10 ; Anxiety F41.9 ; Arthritis M19.90 and Fibromyalgia M79.7 [facility] [id number] [place] [address] September, Anxiety F41.9 [facility] [id number] [place] [address] September, Arthritis M19.90 [facility] [address] [place] [address] Aug, Dental examination Z01.20 [place] [address] [address] Aug, Anxiety F41.9 [place] [id number] [place] [address] Aug, [place] [address] [address] Aug, Anxiety F41.9 [place] [id number] [place] [address] Aug, Essential hypertension I10 and Arthritis M19.90 [place] [id number] [place] [address] Aug, Depressive disorder, not elsewhere classified F32.9 [place] [id number] [place] [address] Jul, Abrasion, unspecified lesser toe(s), sequela S90.416S and Local infection of the skin and subcutaneous tissue, unspecified L08.9 [place] [id number] [place] [address] Jul, Prediabetes R73.03 and Essential hypertension I10 [place] [id number] [place] [address] Jul, Abnormal glucose level R73.09 [address] [place] [id number] Jul, [place] [id number] [place] [address] Jul, Abnormal glucose level R73.09 [place] [id number] [place] [address] Jul, Fibromyalgia M79.7 ; Arthritis M19.90 ; Chronic kidney disease, stage 2 (mild) N18.2 and Depressive disorder, not elsewhere classified F32.9 [place] [id number] [place] [address] 14 Jul, 2016 [facility] [id number] [place] [address] Jul, [facility] [id number] [place] [address] Jul, [facility] [address] [address] Jul, Arthritis M19.90 ; Depressive disorder, not elsewhere classified F32.9 ; Fibromyalgia M79.7 and Constipation, unspecified constipation type K59.00 [place] [address] [address] 15 Jun, 2016 Anxiety F41.9 [place] [id number] [place] [address] 14 Jun, 2016 Anxiety F41.9 and Fibromyalgia M79.7 [place] [id number] [place] [address] 11 Jun, 2016 [place] [id number] [place] [address] Jun, Arthritis M19.90 ; Depressive disorder, not elsewhere classified F32.9 ; Barretts esophagus with dysplasia K22.719 ; Edema, unspecified type R60.9 and Fibromyalgia M79.7 [place] [id number] [place] [address] Jun, [place] [id number] [place] [address] May, [place] [id number] [place] [address] May, Dyspnea on exertion R06.09 ; Coronary artery disease involving [place] coronary artery, angina presence unspecified, unspecified whether [place] or transplanted heart I25.10 and Arthritis M19.90 [place] [id number] [place] [address] [place] [address] May, [facility] [address] [place] [address] Apr, Arthritis M19.90 [facility] [id number] [place] [address] Apr, Arthritis M19.90 and Acute cystitis without hematuria N30.00 [facility] [address] [place] [address] Apr, [facility] [id number] [place] [address] Apr, Fibromyalgia M79.7 [facility] [id number] [place] [address] Apr, Arthritis M19.90 and Onychomycosis B35.1 [facility] [id number] [place] [address] Mar, [facility] [id number] [place] [address] Mar, Acute gout involving toe of right foot, unspecified cause M10.9 [facility] [address] [place] [address] Mar, [facility] [address] [place] [address] Feb, [facility] [address] [place] [address] Feb, [facility] [id number] [place] [address] Feb, Arthritis M19.90 [facility] [id number] [place] [address] Jan, [facility] [address] [place] [address] Jan, [facility] [id number] [place] [address] Jan, [facility] [address] [place] [address] Jan, [place] [id number] [place], [place] [address] Jan, Coronary artery disease involving [place] coronary artery, angina presence unspecified, unspecified whether [place] or transplanted heart I25.10 ; Arthritis M19.90 and Edema, unspecified type R60.9 [facility] [id number] [place] [address] Jan, [place] [id number] [place] [address] Jan, [place] [id number] [place] [address] Jan, Anxiety F41.9 and Depressive disorder, not elsewhere classified F32.9 [place] [id number] [place] [address] Dec, Dementia without behavioral disturbance, unspecified dementia type F03.90 and Reactive depression F32.9 [place] [address] [place] [address] Dec, [place] [address] [place] [address] Dec, [place] [address] [place] [address] Nov, Depressive disorder, not elsewhere classified F32.9 and Anxiety F41.9 [place] [address] [place] [address] Nov, Coronary artery disease involving [place] coronary artery, angina presence unspecified, unspecified whether [place] or transplanted heart I25.10 ; Fibromyalgia M79.7 ; Arthritis M19.90 ; Anxiety F41.9 ; Hyperlipidemia, unspecified hyperlipidemia type E78.5 and Barretts esophagus with dysplasia K22.719 [place] [address] [address] Nov, IMMUNIZATIONS No Known Immunizations SOCIAL HISTORY Never Assessed REASON FOR VISIT Requests return call PLAN OF CARE VITAL SIGNS MEDICATIONS Unknown [...]
--- OUTSIDE RECORDS SUMMARY | 2018-12-14 12:03 | XMS REPORT ---
Author Author JODY COLIN Organization [facility] Address [address] [place] [address] Care Team Providers Care Hairspring Inspector Name Role Phone JODY COLIN Unavailable PROBLEMS Type Condition ICD9-CM Code OKV99-HT Code Onset Dates Condition Status SNOMED Code Problem Essential hypertension I10 Active 38966462 Problem Chronic depression F32.9 Active 148026600 Problem Lumbar radiculopathy M54.16 Active 396560804 Problem Onychomycosis B35.1 Active 663820185 Problem Stage 3 chronic kidney disease N18.3 Active 042013206 Problem Severe episode of recurrent major depressive disorder, without psychotic features F33.2 Active 96408987 Problem Chronic bronchitis, unspecified chronic bronchitis type J42 Active 37093071 Problem Pseudobulbar affect F48.2 Active 14094839 Problem Intractable cyclical vomiting with nausea G43.A1 Active 54954881 Problem Coronary artery disease involving [place] coronary artery, angina presence unspecified, unspecified whether [place] or transplanted heart I25.10 Active 0865485298030 Problem Hyperlipidemia, unspecified hyperlipidemia type E78.5 Active 80314341 Problem Fibromyalgia M79.7 Active 748388601 Problem Anxiety F41.9 Active 89657994 Problem Barretts esophagus with dysplasia K22.719 Active 7274885920872381 Problem Chronic kidney disease, stage 2 (mild) N18.2 Active 977576191 Problem Arthritis M19.90 Active 2240225 Problem Prediabetes R73.03 Active 618906729 ALLERGIES No Information ENCOUNTERS Encounter Location Date Diagnosis [facility] [address] [facility] [id number] [address] Nov, [facility] [id number] [address] Oct, [facility] [address] [facility] [id number] [address] Oct, Arthritis M19.90 [facility] [id number] [place] [address] Oct, Anxiety F41.9 and Arthritis M19.90 [facility] [id number] [place] [address] Oct, Essential hypertension I10 ; Barretts esophagus with dysplasia K22.719 ; Pseudobulbar affect F48.2 ; Arthritis M19.90 ; Onychomycosis B35.1 and Stage 3 chronic kidney disease N18.3 [facility] [id number] [place] [address] September, Arthritis M19.90 [facility] [id number] [place] [address] September, [facility] [id number] [place] [address] Aug, Essential hypertension I10 ; Lumbar radiculopathy M54.16 ; Anxiety F41.9 ; Intractable cyclical vomiting with nausea G43.A1 and Pseudobulbar affect F48.2 [facility] [id number] [place] [address] Aug, Arthritis M19.90 [facility] [id number] [place] [address] Jul, Intractable cyclical vomiting with nausea G43.A1 and Anxiety F41.9 [facility] [id number] [place] [address] Jul, [facility] [id number] [place] [address] Jul, Anxiety F41.9 and Arthritis M19.90 [facility] [id number] [place] [address] Jul, Severe episode of recurrent major depressive disorder, without psychotic features F33.2 and Neurocognitive disorder R41.9 [place] [address] [place] [address] 27 Jun, 2017 [facility] [id number] [place] [address] Jun, Lumbar radiculopathy M54.16 ; Essential hypertension I10 ; Anxiety F41.9 and Chronic bronchitis, unspecified chronic bronchitis type J42 [facility] [address] [address] 15 Jun, 2017 Anxiety F41.9 [facility] [id number] [place] [address] 14 Jun, 2017 [facility] [address] [address] Jun, Arthritis M19.90 [facility] [address] [address] Jun, [facility] [address] [address] Jun, [facility] [id number] [place] [address] May, [facility] [id number] [place] [address] May, [facility] [id number] [place] [address] May, HPV (human papilloma virus) infection B97.7 [facility] [id number] [place] [address] May, Anxiety F41.9 and Arthritis M19.90 [facility] [id number] [place] [address] Apr, [facility] [id number] [place] [address] Apr, [facility] [id number] [place] [address] 13 Apr, 2017 Colon cancer screening Z12.11 [facility] [address] [address] 11 Apr, 2017 [place] [place] [id number] [place] [address] 11 Apr, 2017 [place] [place] [id number] [place] [address] Apr, Arthritis M19.90 and Anxiety F41.9 [facility] [id number] [place] [address] 30 Mar, 2017 Well woman exam Z01.419 and Colon cancer screening Z12.11 [place] [place] [id number] [place] [address] 14 Mar, 2017 [place] [id number] [place] [address] 13 Mar, 2017 Anxiety F41.9 and Arthritis M19.90 [place] [place] [id number] [place] [address] 19 Feb, 2017 Encounter for immunization Z23 ; Essential hypertension I10 ; Lumbar radiculopathy M54.16 ; Chronic depression F32.9 ; Routine adult health maintenance Z00.00 and Chronic bronchitis, unspecified chronic bronchitis type J42 [place] [address] [address] Feb, Arthritis M19.90 and Anxiety F41.9 [place] [address] [address] Jan, Arthritis M19.90 and Anxiety F41.9 [place] [place] [id number] [place] [address] Dec, Arthritis M19.90 and Anxiety F41.9 [place] [id number] [place] [address] 17 Dec, 2016 Lumbar radiculopathy M54.16 and Chronic depression F32.9 [facility] [id number] [place] [address] Dec, [facility] [address] [address] Dec, Foot drop, right foot M21.371 ; Coronary artery disease involving [place] coronary artery, angina presence unspecified, unspecified whether [place] or transplanted heart I25.10 and Depressive disorder, not elsewhere classified F32.9 [facility] [address] [address] Nov, Arthritis M19.90 [facility] [address] [address] Nov, [facility] [address] [address] Oct, [place] [address] [address] Oct, Essential hypertension I10 ; Anxiety F41.9 ; Arthritis M19.90 and Fibromyalgia M79.7 [place] [id number] [place] [address] September, Anxiety F41.9 [place] [address] [address] September, Arthritis M19.90 [place] [place] [id number] [place] [address] Aug, Dental examination Z01.20 [facility] [id number] [place] [address] Aug, Anxiety F41.9 [facility] [address] [address] Aug, [facility] [id number] [place] [address] Aug, Anxiety F41.9 [facility] [address] [address] Aug, Essential hypertension I10 and Arthritis M19.90 [place] [id number] [place] [address] Aug, Depressive disorder, not elsewhere classified F32.9 [place] [address] [place] [address] Jul, Abrasion, unspecified lesser toe(s), sequela S90.416S and Local infection of the skin and subcutaneous tissue, unspecified L08.9 [place] [address] [place] [address] Jul, Prediabetes R73.03 and Essential hypertension I10 [place] [address] [place] [address] Jul, Abnormal glucose level R73.09 [facility] [id number] [place] [id number] Jul, [place] [address] [place] [address] Jul, Abnormal glucose level R73.09 [place] [address] [place] [address] 16 Jul, 2016 Fibromyalgia M79.7 ; Arthritis M19.90 ; Chronic kidney disease, stage 2 (mild) N18.2 and Depressive disorder, not elsewhere classified F32.9 [place] [address] [place] [address] Jul, [place] [address] [place] [address] Jul, [place] [id number] [place] [address] Jul, [place] [address] [place] [address] Jul, Arthritis M19.90 ; Depressive disorder, not elsewhere classified F32.9 ; Fibromyalgia M79.7 and Constipation, unspecified constipation type K59.00 [facility] [id number] [place] [address] 15 Jun, 2016 Anxiety F41.9 [facility] [id number] [place] [address] 14 Jun, 2016 Anxiety F41.9 and Fibromyalgia M79.7 [facility] [address] [address] 11 Jun, 2016 [place] [address] [address] 10 Jun, 2016 Arthritis M19.90 ; Depressive disorder, not elsewhere classified F32.9 ; Barretts esophagus with dysplasia K22.719 ; Edema, unspecified type R60.9 and Fibromyalgia M79.7 [facility] [id number] [place] [address] 06 Jun, 2016 [facility] [id number] [place] [address] May, [facility] [id number] [place] [address] May, Dyspnea on exertion R06.09 ; Coronary artery disease involving [place] coronary artery, angina presence unspecified, unspecified whether [place] or transplanted heart I25.10 and Arthritis M19.90 [facility] [id number] [place] [address] May, [facility] [id number] [place] [address] Apr, Arthritis M19.90 [facility] [address] [address] Apr, Arthritis M19.90 and Acute cystitis without hematuria N30.00 [facility] [address] [place] [id number] Apr, [facility] [id number] [place] [address] Apr, Fibromyalgia M79.7 [facility] [address] [address] Apr, Arthritis M19.90 and Onychomycosis B35.1 [facility] [id number] [place] [address] Mar, [facility] [id number] [place] [address] Mar, Acute gout involving toe of right foot, unspecified cause M10.9 [facility] [id number] [place] [address] Mar, [facility] [id number] [place] [address] Feb, [facility] [id number] [place] [address] Feb, [facility] [id number] [place] [address] Feb, Arthritis M19.90 [facility] [id number] [place] [address] Jan, [facility] [id number] [place] [address] Jan, [facility] [id number] [place] [address] 16 Jan, 2016 [facility] [id number] [place] [address] 16 Jan, 2016 [facility] [id number] [place] [address] 12 Jan, 2016 Coronary artery disease involving [place] coronary artery, angina presence unspecified, unspecified whether [place] or transplanted heart I25.10 ; Arthritis M19.90 and Edema, unspecified type R60.9 [facility] [id number] [place] [address] Jan, [place] [address] [address] Jan, [place] [id number] [place] [address] Jan, Anxiety F41.9 and Depressive disorder, not elsewhere classified F32.9 [place] [id number] [place] [address] Dec, Dementia without behavioral disturbance, unspecified dementia type F03.90 and Reactive depression F32.9 [place] [id number] [place] [address] Dec, [place] [id number] [place] [address] Dec, [place] [id number] [place] [address] Nov, Depressive disorder, not elsewhere classified F32.9 and Anxiety F41.9 [place] [id number] [place] [address] Nov, Coronary artery disease involving [place] coronary artery, angina presence unspecified, unspecified whether [place] or transplanted heart I25.10 ; Fibromyalgia M79.7 ; Arthritis M19.90 ; Anxiety F41.9 ; Hyperlipidemia, unspecified hyperlipidemia type E78.5 and Barretts esophagus with dysplasia K22.719 [place] [id number] [place] [address] Nov, IMMUNIZATIONS No Known Immunizations SOCIAL HISTORY Never Assessed REASON FOR VISIT intake PLAN OF CARE VITAL SIGNS MEDICATIONS Medication Instructions Dosage Frequency Start Date End Date Duration Status Trazodone HCl 100 MG 1 TABLET AT BEDTIME NEEDED ONCE A DAY ORALLY 30 DAY(S) 30 Unknown Diclofenac Sodium 75 Orally bid 1 tablet with food or milk 12h 30 Active ProAir HFA 108 (90 Base) MCG/ACT Inhalation every 6 hrs 2 puffs as needed 6h Active Duloxetine HCl 30 MG Orally 3 times a day 1 capsule 8h 30 days Active Lisinopril 10 mg Orally Once a day 1 tablet 24h 30 Active Exelon 4.6 MG/24HR Transdermal Once a day 1 patch to skin 24h Active Adjust Bath/Shower Seat/Back - use in shower 10 Jun, 2016 Active Multivitamin Adult - Orally Once a day 1 tablet 24h 30 Active Myrbetriq 50 mg Orally Once a day 1 tablet 24h Active Pantoprazole Sodium 40 mg Orally Once a day 1 tablet 24h Active Risperidone 1 TAKE 1 TABLET BY MOUTH TWICE DAILY 30 Unknown Aspirin 325 MG Orally Once a day 1 tablet 24h 30 Active Colace 100 mg Orally Once a day 1 capsule as needed 24h 30 Active Premarin 30GM Vaginal Insert 1 Gram every night at bedtime twice a week Active Risperdal 1 MG Orally twice a day 1 tablet 12h 30 days Not-Taking Cholecalciferol 1000 UNIT Orally Once a day 2 capsules 24h 30 days Active Alprazolam 1 MG Orally Once a day, hs 1 tablet 28 days Active Ranitidine HCl 150 MG Orally twice a day 1 tablet at bedtime 12h Active Metoprolol Tartrate 50 mg Orally Twice a day 1 tablet with food 12h 30 Active Atorvastatin Calcium 80 MG Orally at bedtime 1 tablet Active Trazodone HCl 50 mg Orally Once a day 1 tablet at bedtime as needed 24h 30 Not-Taking Vitamin D3 1000 TAKE 2 CAPSULES BY MOUTH DAILY 30 Unknown Cetirizine HCl 10 TAKE 1 TABLET BY MOUTH DAILY 30 Active Nitrofurantoin Monohyd Macro 100 MG Orally daily with Supper 1 capsule with food Not-Taking Oxycodone HCl 5 mg Orally every 6 hrs, prn pain 1 tablet 12 Jun, 2017 28 days Active Folic Acid 1 MG Orally twice a day 1 tablet 12h Active Clobetasol Propionate 0.05 SHAMPOO HAIR/SCALP, LEAVE ON 15 MINUTES AND RINSE WELL.. USE DAILY FOR 4 WEEKS. Active RESULTS No Results PROCEDURES Procedure Date Ordered Result Body Site Psych diagnostic evaluation, established patient July 19, 2017 INSTRUCTIONS MEDICATIONS ADMINISTERED No Known Medications [...]
--- OUTSIDE RECORDS SUMMARY | 2018-12-14 12:03 | XMS REPORT ---
Author Author DELMI BYRNES Organization [facility] Address [address] [place] [address] Care Team Providers Care Project Builder Name Role Phone DELMI BYRNES Unavailable PROBLEMS Type Condition ICD9-CM Code KAX86-HY Code Onset Dates Condition Status SNOMED Code Problem Essential hypertension I10 Active 05627753 Problem Chronic depression F32.9 Active 892234863 Problem Lumbar radiculopathy M54.16 Active 173490686 Problem Onychomycosis B35.1 Active 530143355 Problem Stage 3 chronic kidney disease N18.3 Active 958223703 Problem Severe episode of recurrent major depressive disorder, without psychotic features F33.2 Active 64510224 Problem Chronic bronchitis, unspecified chronic bronchitis type J42 Active 08929048 Problem Pseudobulbar affect F48.2 Active 44961801 Problem Intractable cyclical vomiting with nausea G43.A1 Active 92623085 Problem Coronary artery disease involving tuolumne coronary artery, angina presence unspecified, unspecified whether tuolumne or transplanted heart I25.10 Active 2288997316548 Problem Hyperlipidemia, unspecified hyperlipidemia type E78.5 Active 68790178 Problem Fibromyalgia M79.7 Active 243789836 Problem Anxiety F41.9 Active 66443437 Problem Barretts esophagus with dysplasia K22.719 Active 4256602123896110 Problem Chronic kidney disease, stage 2 (mild) N18.2 Active 825704510 Problem Arthritis M19.90 Active 9583359 Problem Prediabetes R73.03 Active 561357906 ALLERGIES No Information ENCOUNTERS Encounter Location Date Diagnosis [facility] [id number], [place] [address] Nov, [facility] [address], [place] [address] Oct, [facility] [id number], [place] [address] Oct, Arthritis M19.90 [facility] [address] [place] [address] Oct, Anxiety F41.9 and Arthritis M19.90 [facility] [id number] [place] [address] Oct, Essential hypertension I10 ; Barretts esophagus with dysplasia K22.719 ; Pseudobulbar affect F48.2 ; Arthritis M19.90 ; Onychomycosis B35.1 and Stage 3 chronic kidney disease N18.3 [facility] [id number] [place] [address] September, Arthritis M19.90 [facility] [id number] [place] [address] September, [facility] [id number] [place] [address] Aug, Essential hypertension I10 ; Lumbar radiculopathy M54.16 ; Anxiety F41.9 ; Intractable cyclical vomiting with nausea G43.A1 and Pseudobulbar affect F48.2 [facility] [id number] [place] [address] Aug, Arthritis M19.90 [facility] [id number] [place] [address] Jul, Intractable cyclical vomiting with nausea G43.A1 and Anxiety F41.9 [facility] [id number] [place] [address] Jul, [facility] [id number] [place] [address] Jul, Anxiety F41.9 and Arthritis M19.90 [facility] [id number] [place] [address] Jul, Severe episode of recurrent major depressive disorder, without psychotic features F33.2 and Neurocognitive disorder R41.9 [facility] [id number] [place] [address] 27 Jun, 2017 [facility] [address] [address] Jun, Lumbar radiculopathy M54.16 ; Essential hypertension I10 ; Anxiety F41.9 and Chronic bronchitis, unspecified chronic bronchitis type J42 [facility] [address] [address] 15 Jun, 2017 Anxiety F41.9 [facility] [address] [address] 14 Jun, 2017 [facility] [address] [address] Jun, Arthritis M19.90 [facility] [address] [address] Jun, [facility] [address] [address] Jun, [facility] [address] [address] May, [facility] [address] [address] May, [facility] [id number] [place] [address] May, HPV (human papilloma virus) infection B97.7 [facility] [id number] [place] [address] May, Anxiety F41.9 and Arthritis M19.90 [facility] [address] [address] Apr, [facility] [address] [address] Apr, [facility] [address] [address] 13 Apr, 2017 Colon cancer screening Z12.11 [facility] [address], [place] [address] 11 Apr, 2017 [facility] [id number] [place] [address] 11 Apr, 2017 [facility] [id number] [place] [address] 07 Apr, 2017 Arthritis M19.90 and Anxiety F41.9 [facility] [id number] [place] [address] 30 Mar, 2017 Well woman exam Z01.419 and Colon cancer screening Z12.11 [facility] [id number] [place] [address] 14 Mar, 2017 [facility] [id number] [place] [address] 13 Mar, 2017 Anxiety F41.9 and Arthritis M19.90 [facility] [id number] [place] [address] 19 Feb, 2017 Encounter for immunization Z23 ; Essential hypertension I10 ; Lumbar radiculopathy M54.16 ; Chronic depression F32.9 ; Routine adult health maintenance Z00.00 and Chronic bronchitis, unspecified chronic bronchitis type J42 [facility] [address] [place] [address] Feb, Arthritis M19.90 and Anxiety F41.9 [facility] [id number] [place] [address] Jan, Arthritis M19.90 and Anxiety F41.9 [facility] [id number] [place] [address] Dec, Arthritis M19.90 and Anxiety F41.9 [facility] [id number] [place] [address] 17 Dec, 2016 Lumbar radiculopathy M54.16 and Chronic depression F32.9 [facility] [id number] [place] [address] Dec, [facility] [id number] [place] [address] Dec, Foot drop, right foot M21.371 ; Coronary artery disease involving tuolumne coronary artery, angina presence unspecified, unspecified whether tuolumne or transplanted heart I25.10 and Depressive disorder, not elsewhere classified F32.9 [facility] [id number] [place] [address] Nov, Arthritis M19.90 [facility] [address] [address] Nov, [facility] [address] [address] Oct, [facility] [address] [address] Oct, Essential hypertension I10 ; Anxiety F41.9 ; Arthritis M19.90 and Fibromyalgia M79.7 [facility] [id number] [place] [address] September, Anxiety F41.9 [facility] [id number] [place] [address] September, Arthritis M19.90 [facility] [id number] [place] [address] Aug, Dental examination Z01.20 [facility] [id number] [place] [address] Aug, Anxiety F41.9 [facility] [id number] [place] [address] Aug, [facility] [id number] [place] [address] Aug, Anxiety F41.9 [facility] [address] [place] [address] 13 Aug, 2016 Essential hypertension I10 and Arthritis M19.90 [facility] [id number] [place] [address] Aug, Depressive disorder, not elsewhere classified F32.9 [facility] [address] [place] [address] 29 Jul, 2016 Abrasion, unspecified lesser toe(s), sequela S90.416S and Local infection of the skin and subcutaneous tissue, unspecified L08.9 [facility] [id number] [place] [address] Jul, Prediabetes R73.03 and Essential hypertension I10 [facility] [id number] [place] [address] Jul, Abnormal glucose level R73.09 [facility] [id number] [place] [id number] Jul, [facility] [id number] [place] [address] Jul, Abnormal glucose level R73.09 [facility] [id number] [place] [address] 16 Jul, 2016 Fibromyalgia M79.7 ; Arthritis M19.90 ; Chronic kidney disease, stage 2 (mild) N18.2 and Depressive disorder, not elsewhere classified F32.9 [facility] [address] [place] [address] 14 Jul, 2016 [facility] [id number] [place] [address] Jul, [facility] [id number] [place] [address] Jul, [facility] [address] [place] [address] Jul, Arthritis M19.90 ; Depressive disorder, not elsewhere classified F32.9 ; Fibromyalgia M79.7 and Constipation, unspecified constipation type K59.00 [facility] [id number] [place] [address] 15 Jun, 2016 Anxiety F41.9 [facility] [id number] [place] [address] 14 Jun, 2016 Anxiety F41.9 and Fibromyalgia M79.7 [facility] [address] [address] 11 Jun, 2016 [address] [id number] [place] [address] Jun, Arthritis M19.90 ; Depressive disorder, not elsewhere classified F32.9 ; Barretts esophagus with dysplasia K22.719 ; Edema, unspecified type R60.9 and Fibromyalgia M79.7 [facility] [id number] [place] [address] 06 Jun, 2016 [facility] [id number] [place] [address] May, [facility] [address] [address] May, Dyspnea on exertion R06.09 ; Coronary artery disease involving tuolumne coronary artery, angina presence unspecified, unspecified whether tuolumne or transplanted heart I25.10 and Arthritis M19.90 [facility] [id number] [place] [address] May, [facility] [id number] [place] [address] Apr, Arthritis M19.90 [facility] [address] [address] Apr, Arthritis M19.90 and Acute cystitis without hematuria N30.00 [facility] [address] [place] [id number] Apr, [facility] [id number] [place] [address] Apr, Fibromyalgia M79.7 [facility] [address] [place] [address] Apr, Arthritis M19.90 and Onychomycosis B35.1 [facility] [id number] [place] [address] Mar, [facility] [id number] [place] [address] Mar, Acute gout involving toe of right foot, unspecified cause M10.9 [facility] [id number] [place] [address] Mar, [facility] [id number] [place] [address] Feb, [facility] [id number] [place] [address] Feb, [facility] [id number] [place] [address] Feb, Arthritis M19.90 [facility] [id number] [place] [address] 23 Jan, 2016 [facility] [id number] [place] [address] Jan, [facility] [id number] [place] [address] 16 Jan, 2016 [facility] [id number] [place] [address] 16 Jan, 2016 [facility] [address] [place] [address] 12 Jan, 2016 Coronary artery disease involving tuolumne coronary artery, angina presence unspecified, unspecified whether tuolumne or transplanted heart I25.10 ; Arthritis M19.90 and Edema, unspecified type R60.9 [facility] [id number] [place] [address] Jan, [facility] [address], [place] [address] Jan, [facility] [id number] [place] [address] Jan, Anxiety F41.9 and Depressive disorder, not elsewhere classified F32.9 [facility] [id number] [place] [address] Dec, Dementia without behavioral disturbance, unspecified dementia type F03.90 and Reactive depression F32.9 [facility] [id number] [place] [address] Dec, [facility] [id number] [place] [address] Dec, [facility] [id number] [place] [address] Nov, Depressive disorder, not elsewhere classified F32.9 and Anxiety F41.9 [facility] [id number] [place] [address] Nov, Coronary artery disease involving tuolumne coronary artery, angina presence unspecified, unspecified whether tuolumne or transplanted heart I25.10 ; Fibromyalgia M79.7 ; Arthritis M19.90 ; Anxiety F41.9 ; Hyperlipidemia, unspecified hyperlipidemia type E78.5 and Barretts esophagus with dysplasia K22.719 [facility] [id number] [place] [address] Nov, IMMUNIZATIONS No Known Immunizations SOCIAL HISTORY Never Assessed REASON FOR VISIT Home Health D/C PLAN OF CARE VITAL SIGNS MEDICATIONS Unknown [...]
--- OUTSIDE RECORDS SUMMARY | 2018-12-14 12:03 | XMS REPORT ---
Author Author DELMI BYRNES Organization [facility] Address [address] [place] [address] Care Team Providers Care Electrocardiogram Technician Name Role Phone DELMI BYRNES Unavailable PROBLEMS Type Condition ICD9-CM Code MWG38-VB Code Onset Dates Condition Status SNOMED Code Problem Essential hypertension I10 Active 47428993 Problem Chronic depression F32.9 Active 973253407 Problem Lumbar radiculopathy M54.16 Active 599447841 Problem Onychomycosis B35.1 Active 315076029 Problem Stage 3 chronic kidney disease N18.3 Active 668807063 Problem Severe episode of recurrent major depressive disorder, without psychotic features F33.2 Active 81042750 Problem Chronic bronchitis, unspecified chronic bronchitis type J42 Active 66570972 Problem Pseudobulbar affect F48.2 Active 38993648 Problem Intractable cyclical vomiting with nausea G43.A1 Active 99801972 Problem Coronary artery disease involving cabazon coronary artery, angina presence unspecified, unspecified whether cabazon or transplanted heart I25.10 Active 3762697702867 Problem Hyperlipidemia, unspecified hyperlipidemia type E78.5 Active 06583702 Problem Fibromyalgia M79.7 Active 847036864 Problem Anxiety F41.9 Active 45414502 Problem Barretts esophagus with dysplasia K22.719 Active 8924968672639000 Problem Chronic kidney disease, stage 2 (mild) N18.2 Active 913445883 Problem Arthritis M19.90 Active 0022734 Problem Prediabetes R73.03 Active 213956441 ALLERGIES Substance Reaction Event Type Date Status Milk Unknown Non Drug Allergy Jul, Active Eggs Unknown Non Drug Allergy Jul, Active ENCOUNTERS Encounter Location Date Diagnosis [facility] [address] [facility] [id number] [address] Dec, [facility] [address] [facility] [id number], [place] [address] Nov, Prediabetes R73.03 ; Essential hypertension I10 ; Bilateral impacted cerumen H61.23 ; Severe episode of recurrent major depressive disorder, without psychotic features F33.2 and Lumbar radiculopathy M54.16 [place] [address] [place] [address] Oct, [place] [address] [place] [id number] [place] [address] Oct, Arthritis M19.90 [place] [address] [place] [id number] [place] [address] Oct, Anxiety F41.9 and Arthritis M19.90 [place] [address] [place] [id number] [place] [address] Oct, Essential hypertension I10 ; Barretts esophagus with dysplasia K22.719 ; Pseudobulbar affect F48.2 ; Arthritis M19.90 ; Onychomycosis B35.1 and Stage 3 chronic kidney disease N18.3 [place] [address] [place] [id number] [place] [address] September, Arthritis M19.90 [place] [address] [place] [id number] [place] [address] September, [place] [address] [place] [id number] [place] [address] Aug, Essential hypertension I10 ; Lumbar radiculopathy M54.16 ; Anxiety F41.9 ; Intractable cyclical vomiting with nausea G43.A1 and Pseudobulbar affect F48.2 [place] [address] [place] [id number] [place] [address] Aug, Arthritis M19.90 [place] [address] [place] [id number] [place] [address] Jul, Intractable cyclical vomiting with nausea G43.A1 and Anxiety F41.9 [place] [address] [place] [id number] [place] [address] Jul, [place] [address] [place] [id number] [place] [address] Jul, Anxiety F41.9 and Arthritis M19.90 [place] [address] [address] Jul, Severe episode of recurrent major depressive disorder, without psychotic features F33.2 and Neurocognitive disorder R41.9 [place] [address] [address] 27 Jun, 2017 [place] [address] [address] Jun, Lumbar radiculopathy M54.16 ; Essential hypertension I10 ; Anxiety F41.9 and Chronic bronchitis, unspecified chronic bronchitis type J42 [place] [address] [address] 15 Jun, 2017 Anxiety F41.9 [place] [address] [address] 14 Jun, 2017 [place] [address] [place] [id number] [place] [address] 12 Jun, 2017 Arthritis M19.90 [place] [address] [place] [id number] [place] [address] Jun, [place] [address] [place] [id number] [place] [address] Jun, [place] [address] [place] [id number] [place] [address] May, [place] [address] [address] May, [place] [address] [address] May, HPV (human papilloma virus) infection B97.7 [place] [address] [address] May, Anxiety F41.9 and Arthritis M19.90 [facility] [address] [place] [id number] [place] [address] 18 Apr, 2017 [facility] [address] [place] [id number] [place] [address] Apr, [facility] [address] [place] [id number] [place] [address] Apr, Colon cancer screening Z12.11 [place] [address] [place] [id number] [place] [address] Apr, [place] [address] [address] Apr, [place] [address] [place] [id number] [place] [address] 07 Apr, 2017 Arthritis M19.90 and Anxiety F41.9 [place] [address] [place] [id number] [place] [address] 30 Mar, 2017 Well woman exam Z01.419 and Colon cancer screening Z12.11 [place] [address] [place] [id number] [place] [address] 14 Mar, 2017 [place] [address] [place] [id number] [place] [address] Mar, Anxiety F41.9 and Arthritis M19.90 [place] [address] [place] [id number] [place] [address] Feb, Encounter for immunization Z23 ; Essential hypertension I10 ; Lumbar radiculopathy M54.16 ; Chronic depression F32.9 ; Routine adult health maintenance Z00.00 and Chronic bronchitis, unspecified chronic bronchitis type J42 [place] [address] [place] [id number] [place] [address] 16 Feb, 2017 Arthritis M19.90 and Anxiety F41.9 [place] [address] [place] [id number] [place] [address] Jan, Arthritis M19.90 and Anxiety F41.9 [facility] [address] [place] [id number] [place] [address] Dec, Arthritis M19.90 and Anxiety F41.9 [facility] [address] [place] [id number] [place] [address] Dec, Lumbar radiculopathy M54.16 and Chronic depression F32.9 [facility] [address] [place] [id number] [place] [address] Dec, [facility] [address] [place] [id number] [place] [address] Dec, Foot drop, right foot M21.371 ; Coronary artery disease involving cabazon coronary artery, angina presence unspecified, unspecified whether cabazon or transplanted heart I25.10 and Depressive disorder, not elsewhere classified F32.9 [place] [address] [address] Nov, Arthritis M19.90 [facility] [address] [place] [id number] [place] [address] Nov, [place] [address] [address] Oct, [place] [address] [place] [id number] [place] [address] Oct, Essential hypertension I10 ; Anxiety F41.9 ; Arthritis M19.90 and Fibromyalgia M79.7 [facility] [address] [place] [id number] [place] [address] September, Anxiety F41.9 [place] [address] [address] September, Arthritis M19.90 [facility] [address] [place] [id number] [place] [address] Aug, Dental examination Z01.20 [place] [address] [place] [address] Aug, Anxiety F41.9 [facility] [id number] [place] [address] Aug, [facility] [id number] [place] [address] 18 Aug, 2016 Anxiety F41.9 [facility] [address] [place] [id number] [place] [address] Aug, Essential hypertension I10 and Arthritis M19.90 [place] [id number] [place] [address] Aug, Depressive disorder, not elsewhere classified F32.9 [place] [address] [place] [address] 29 Jul, 2016 Abrasion, unspecified lesser toe(s), sequela S90.416S and Local infection of the skin and subcutaneous tissue, unspecified L08.9 [place] [address] [address] Jul, Prediabetes R73.03 and Essential hypertension I10 [place] [address] [place] [address] Jul, Abnormal glucose level R73.09 [place] [id number] [id number] Jul, [place] [address] [place] [address] Jul, Abnormal glucose level R73.09 [place] [address] [address] 16 Jul, 2016 Fibromyalgia M79.7 ; Arthritis M19.90 ; Chronic kidney disease, stage 2 (mild) N18.2 and Depressive disorder, not elsewhere classified F32.9 [place] [address] [address] 14 Jul, 2016 [place] [address] [place] [id number] [address] Jul, [facility] [address] [place] [id number] [place] [address] Jul, [facility] [address] [place] [id number] [place] [address] Jul, Arthritis M19.90 ; Depressive disorder, not elsewhere classified F32.9 ; Fibromyalgia M79.7 and Constipation, unspecified constipation type K59.00 [place] [address] [place] [id number] [place] [address] 15 Jun, 2016 Anxiety F41.9 [place] [address] [place] [id number] [place] [address] 14 Jun, 2016 Anxiety F41.9 and Fibromyalgia M79.7 [place] [address] [place] [id number] [place] [address] 11 Jun, 2016 [place] [address] [place] [id number] [place] [address] Jun, Arthritis M19.90 ; Depressive disorder, not elsewhere classified F32.9 ; Barretts esophagus with dysplasia K22.719 ; Edema, unspecified type R60.9 and Fibromyalgia M79.7 [place] [address] [place] [address] 06 Jun, 2016 [place] [address] [place] [id number] [place] [address] May, [place] [address] [place] [id number] [place] [address] May, Dyspnea on exertion R06.09 ; Coronary artery disease involving cabazon coronary artery, angina presence unspecified, unspecified whether cabazon or transplanted heart I25.10 and Arthritis M19.90 [place] [address] [place] [address] May, [place] [address] [place] [id number] [place] [address] Apr, Arthritis M19.90 [facility] [id number] [place] [address] Apr, Arthritis M19.90 and Acute cystitis without hematuria N30.00 [facility] [address] [facility] [place] [address] Apr, [facility] [id number] [place] [address] Apr, Fibromyalgia M79.7 [facility] [address] [place] [id number] [place] [address] Apr, Arthritis M19.90 and Onychomycosis B35.1 [facility] [address] [place] [id number] [place] [address] Mar, [facility] [address] [place] [id number] [place] [address] Mar, Acute gout involving toe of right foot, unspecified cause M10.9 [facility] [address] [place] [id number] [place] [address] Mar, [facility] [address] [place] [id number] [place] [address] Feb, [facility] [id number] [place] [address] Feb, [facility] [address] [place] [id number] [place] [address] Feb, Arthritis M19.90 [facility] [address] [address] 23 Jan, 2016 [facility] [address] [place] [id number] [place] [address] 19 Jan, 2016 [facility] [address] [address] 16 Jan, 2016 [facility] [address] [place] [id number] [place] [address] 16 Jan, 2016 [place] [id number] [place] [address] Jan, Coronary artery disease involving cabazon coronary artery, angina presence unspecified, unspecified whether cabazon or transplanted heart I25.10 ; Arthritis M19.90 and Edema, unspecified type R60.9 [facility] [address] [place] [id number] [place] [address] Jan, [place] [address] [place] [id number] [place] [address] Jan, [place] [address] [place] [id number] [place] [address] Jan, Anxiety F41.9 and Depressive disorder, not elsewhere classified F32.9 [place] [address] [place] [id number] [place] [address] Dec, Dementia without behavioral disturbance, unspecified dementia type F03.90 and Reactive depression F32.9 [place] [address] [place] [id number] [place] [address] Dec, [place] [address] [place] [id number] [place] [address] Dec, [place] [address] [place] [id number] [place] [address] Nov, Depressive disorder, not elsewhere classified F32.9 and Anxiety F41.9 [place] [address] [place] [id number] [place] [address] Nov, Coronary artery disease involving cabazon coronary artery, angina presence unspecified, unspecified whether cabazon or transplanted heart I25.10 ; Fibromyalgia M79.7 ; Arthritis M19.90 ; Anxiety F41.9 ; Hyperlipidemia, unspecified hyperlipidemia type E78.5 and Barretts esophagus with dysplasia K22.719 [facility] [address] [address] Nov, IMMUNIZATIONS No Known Immunizations SOCIAL HISTORY Never Assessed REASON FOR VISIT Hospital f/u- was in [facility] for 3 days for dehydration- Cris davis RN PLAN OF CARE Activity Details Follow Up 4 Weeks Reason: VITAL SIGNS Height 67 in 2017-08-10 Weight 185 lbs 2017-08-10 Temperature 97.0 degrees Fahrenheit 2017-08-10 Heart Rate 70 bpm 2017-08-10 Respiratory Rate 18 2017-08-10 BMI 28.97 kg/m2 2017-08-10 Blood pressure systolic 110 mmHg 2017-08-10 Blood pressure diastolic 78 mmHg 2017-08-10 MEDICATIONS Medication Instructions Dosage Frequency Start Date End Date Duration Status Colace 100 mg Orally Once a day 1 capsule as needed 24h 30 Active Adjust Bath/Shower Seat/Back - use in shower Jun, Active Cetirizine HCl 10 TAKE 1 TABLET BY MOUTH DAILY 30 Active ProAir HFA 108 (90 Base) MCG/ACT Inhalation every 6 hrs 2 puffs as needed 6h Active Exelon 4.6 MG/24HR Transdermal Once a day 1 patch to skin 24h Active Premarin 30GM Vaginal Insert 1 Gram every night at bedtime twice a week Active Alprazolam 1 MG Orally Twice a day 1 tablet 12h 28 days Active Pantoprazole Sodium 40 mg Orally Once a day 1 tablet 24h Active Aspirin 325 MG Orally Once a day 1 tablet 24h 30 Active Ranitidine HCl 150 MG Orally twice a day 1 tablet at bedtime 12h Active Diclofenac Sodium 75 Orally bid 1 tablet with food or milk 12h 30 Active Metoprolol Tartrate 50 mg Orally Twice a day 1 tablet with food 12h 30 Active Folic Acid 1 MG Orally twice a day 1 tablet 12h Active Cholecalciferol 1000 UNIT Orally Once a day 2 capsules 24h 30 days Active Toviaz 4 MG Orally Once a day 1 tablet 24h Active Lisinopril 40 MG Orally Once a day 1 tablet 24h Active Duloxetine HCl 30 MG Orally Once a day 1 capsule 24h Active Multivitamin Adult - Orally Once a day 1 tablet 24h 30 Active Reglan 10 MG Orally qid, ac and hs as directed Jul, Active Atorvastatin Calcium 80 MG Orally at bedtime 1 tablet Active Oxycodone HCl 5 mg Orally every 6 hrs, prn pain 1 tablet Jul, 28 days Active RESULTS No Results PROCEDURES [...]
--- OUTSIDE RECORDS SUMMARY | 2018-12-14 12:03 | XMS REPORT ---
Author Author DELMI BYRNES Organization [facility] Address [address] [place] [address] Care Team Providers Care Barrelhead Inspector Name Role Phone DELMI BYRNES Unavailable PROBLEMS Type Condition ICD9-CM Code PHF13-NW Code Onset Dates Condition Status SNOMED Code Problem Essential hypertension I10 Active 74603275 Problem Chronic depression F32.9 Active 917614861 Problem Lumbar radiculopathy M54.16 Active 183706261 Problem Onychomycosis B35.1 Active 818079444 Problem Stage 3 chronic kidney disease N18.3 Active 597485756 Problem Severe episode of recurrent major depressive disorder, without psychotic features F33.2 Active 05605963 Problem Chronic bronchitis, unspecified chronic bronchitis type J42 Active 49068382 Problem Pseudobulbar affect F48.2 Active 05150758 Problem Intractable cyclical vomiting with nausea G43.A1 Active 96505483 Problem Coronary artery disease involving [place] coronary artery, angina presence unspecified, unspecified whether [place] or transplanted heart I25.10 Active 8392378558979 Problem Hyperlipidemia, unspecified hyperlipidemia type E78.5 Active 37874113 Problem Fibromyalgia M79.7 Active 782558120 Problem Anxiety F41.9 Active 50081395 Problem Barretts esophagus with dysplasia K22.719 Active [id number] Problem Chronic kidney disease, stage 2 (mild) N18.2 Active 972794340 Problem Arthritis M19.90 Active 4363971 Problem Prediabetes R73.03 Active [id number] ALLERGIES No Information ENCOUNTERS Encounter Location Date Diagnosis [facility] [id number] [address] Nov, [facility] [address] [address] Oct, [facility] [id number] [address] Oct, Arthritis M19.90 [facility] [address] [place] [address] Oct, Anxiety F41.9 and Arthritis M19.90 [facility] [id number] [place] [address] Oct, Essential hypertension I10 ; Barretts esophagus with dysplasia K22.719 ; Pseudobulbar affect F48.2 ; Arthritis M19.90 ; Onychomycosis B35.1 and Stage 3 chronic kidney disease N18.3 [facility] [id number] [place] [address] September, Arthritis M19.90 [facility] [id number] [place] [address] September, [facility] [id number] [place] [address] Aug, Essential hypertension I10 ; Lumbar radiculopathy M54.16 ; Anxiety F41.9 ; Intractable cyclical vomiting with nausea G43.A1 and Pseudobulbar affect F48.2 [address] [id number] [place] [address] Aug, Arthritis M19.90 [facility] [id number] [place] [address] Jul, Intractable cyclical vomiting with nausea G43.A1 and Anxiety F41.9 [facility] [id number] [place] [address] Jul, [facility] [id number] [place] [address] Jul, Anxiety F41.9 and Arthritis M19.90 [facility] [id number] [place] [address] Jul, Severe episode of recurrent major depressive disorder, without psychotic features F33.2 and Neurocognitive disorder R41.9 [place] [id number] [place] [address] 27 Jun, 2017 [facility] [address] [address] Jun, Lumbar radiculopathy M54.16 ; Essential hypertension I10 ; Anxiety F41.9 and Chronic bronchitis, unspecified chronic bronchitis type J42 [facility] [address] [address] 15 Jun, 2017 Anxiety F41.9 [facility] [address] [address] 14 Jun, 2017 [facility] [address] [address] Jun, Arthritis M19.90 [facility] [address] [address] Jun, [facility] [address] [address] Jun, [facility] [address] [address] May, [facility] [address] [address] May, [facility] [id number] [place] [address] May, HPV (human papilloma virus) infection B97.7 [facility] [id number] [place] [address] May, Anxiety F41.9 and Arthritis M19.90 [facility] [address] [address] Apr, [facility] [address] [address] Apr, [facility] [address] [address] 13 Apr, 2017 Colon cancer screening Z12.11 [facility] [address] [address] 11 Apr, 2017 [place] [id number] [place] [address] 11 Apr, 2017 [place] [id number] [place] [address] 07 Apr, 2017 Arthritis M19.90 and Anxiety F41.9 [address] [place] [id number] [place] [address] 30 Mar, 2017 Well woman exam Z01.419 and Colon cancer screening Z12.11 [place] [id number] [place] [address] 14 Mar, 2017 [place] [id number] [place] [address] 13 Mar, 2017 Anxiety F41.9 and Arthritis M19.90 [place] [id number] [place] [address] 19 Feb, 2017 Encounter for immunization Z23 ; Essential hypertension I10 ; Lumbar radiculopathy M54.16 ; Chronic depression F32.9 ; Routine adult health maintenance Z00.00 and Chronic bronchitis, unspecified chronic bronchitis type J42 [place] [address] [place] [address] Feb, Arthritis M19.90 and Anxiety F41.9 [place] [id number] [place] [address] Jan, Arthritis M19.90 and Anxiety F41.9 [place] [id number] [place] [address] Dec, Arthritis M19.90 and Anxiety F41.9 [place] [id number] [place] [address] 17 Dec, 2016 Lumbar radiculopathy M54.16 and Chronic depression F32.9 [facility] [id number] [place] [address] Dec, [facility] [id number] [place] [address] Dec, Foot drop, right foot M21.371 ; Coronary artery disease involving [place] coronary artery, angina presence unspecified, unspecified whether [place] or transplanted heart I25.10 and Depressive disorder, not elsewhere classified F32.9 [facility] [id number] [place] [address] Nov, Arthritis M19.90 [facility] [address] [address] Nov, [facility] [address] [address] Oct, [facility] [address] [address] Oct, Essential hypertension I10 ; Anxiety F41.9 ; Arthritis M19.90 and Fibromyalgia M79.7 [facility] [id number] [place] [address] September, Anxiety F41.9 [facility] [id number] [place] [address] September, Arthritis M19.90 [facility] [id number] [place] [address] Aug, Dental examination Z01.20 [facility] [id number] [place] [address] Aug, Anxiety F41.9 [facility] [id number] [place] [address] Aug, [facility] [id number] [place] [address] Aug, Anxiety F41.9 [facility] [address] [place] [address] 13 Aug, 2016 Essential hypertension I10 and Arthritis M19.90 [place] [id number] [place] [address] Aug, Depressive disorder, not elsewhere classified F32.9 [place] [address] [place] [address] 29 Jul, 2016 Abrasion, unspecified lesser toe(s), sequela S90.416S and Local infection of the skin and subcutaneous tissue, unspecified L08.9 [place] [id number] [place] [address] Jul, Prediabetes R73.03 and Essential hypertension I10 [place] [id number] [place] [address] Jul, Abnormal glucose level R73.09 [facility] [id number] [place] [id number] Jul, [place] [id number] [place] [address] Jul, Abnormal glucose level R73.09 [place] [id number] [place] [address] 16 Jul, 2016 Fibromyalgia M79.7 ; Arthritis M19.90 ; Chronic kidney disease, stage 2 (mild) N18.2 and Depressive disorder, not elsewhere classified F32.9 [address] [place] [address] 14 Jul, 2016 [place] [id number] [place] [address] Jul, [place] [id number] [place] [address] Jul, [address] [place] [place] [address] Jul, Arthritis M19.90 ; Depressive disorder, not elsewhere classified F32.9 ; Fibromyalgia M79.7 and Constipation, unspecified constipation type K59.00 [facility] [id number] [place] [address] 15 Jun, 2016 Anxiety F41.9 [facility] [id number] [place] [address] 14 Jun, 2016 Anxiety F41.9 and Fibromyalgia M79.7 [facility] [address] [address] 11 Jun, 2016 [address] [address] 10 Jun, 2016 Arthritis M19.90 ; Depressive disorder, not elsewhere classified F32.9 ; Barretts esophagus with dysplasia K22.719 ; Edema, unspecified type R60.9 and Fibromyalgia M79.7 [place] [id number] [place] [address] 06 Jun, 2016 [address] [place] [id number] [place] [address] May, [address] [place] [address] May, Dyspnea on exertion R06.09 ; Coronary artery disease involving [place] coronary artery, angina presence unspecified, unspecified whether [place] or transplanted heart I25.10 and Arthritis M19.90 [address] [place] [id number] [place] [address] May, [place] [id number] [place] [address] Apr, Arthritis M19.90 [address] [place] [address] Apr, Arthritis M19.90 and Acute cystitis without hematuria N30.00 [facility] [address] [place] [address] Apr, [address] [address] Apr, Fibromyalgia M79.7 [facility] [address] [place] [address] Apr, Arthritis M19.90 and Onychomycosis B35.1 [facility] [id number] [place] [address] Mar, [facility] [id number] [place] [address] Mar, Acute gout involving toe of right foot, unspecified cause M10.9 [facility] [id number] [place] [address] Mar, [facility] [id number] [place] [id number] Feb, [facility] [id number] [place] [address] Feb, [facility] [id number] [place] [address] Feb, Arthritis M19.90 [facility] [id number] [place] [address] 23 Jan, 2016 [facility] [id number] [place] [phone] Jan, [facility] [id number] [place] [address] 16 Jan, 2016 [facility] [id number] [place] [address] 16 Jan, 2016 [facility] [address] [place] [address] 12 Jan, 2016 Coronary artery disease involving [place] coronary artery, angina presence unspecified, unspecified whether [place] or transplanted heart I25.10 ; Arthritis M19.90 and Edema, unspecified type R60.9 [facility] [id number] [place] [address] Jan, [id number] [address] Jan, [place] [id number] [place] [address] Jan, Anxiety F41.9 and Depressive disorder, not elsewhere classified F32.9 [address] [place] [id number] [place] [address] Dec, Dementia without behavioral disturbance, unspecified dementia type F03.90 and Reactive depression F32.9 [address] [place] [id number] [place] [address] Dec, [place] [id number] [place] [address] Dec, [place] [id number] [place] [address] Nov, Depressive disorder, not elsewhere classified F32.9 and Anxiety F41.9 [place] [id number] [place] [address] Nov, Coronary artery disease involving [place] coronary artery, angina presence unspecified, unspecified whether [place] or transplanted heart I25.10 ; Fibromyalgia M79.7 ; Arthritis M19.90 ; Anxiety F41.9 ; Hyperlipidemia, unspecified hyperlipidemia type E78.5 and Barretts esophagus with dysplasia K22.719 [place] [id number] [place] [address] Nov, IMMUNIZATIONS No Known Immunizations SOCIAL HISTORY Never Assessed REASON FOR VISIT Oxycodone and Xanax- 3/15 PLAN OF CARE VITAL SIGNS MEDICATIONS Medication Instructions Dosage Frequency Start Date End Date Duration Status Alprazolam 1 MG Orally Once a day, hs 1 tablet 28 days Active Oxycodone HCl 5 mg [...]
--- OUTSIDE RECORDS SUMMARY | 2018-12-14 12:04 | XMS REPORT ---
Author Author DELMI BYRNES Organization [facility] Address [address] [place] [address] Care Team Providers Care Centerless Grinder Set Up Operator Name Role Phone DELMI BYRNES Unavailable PROBLEMS Type Condition ICD9-CM Code LWM11-WS Code Onset Dates Condition Status SNOMED Code Problem Essential hypertension I10 Active 35698575 Problem Chronic depression F32.9 Active 704759792 Problem Lumbar radiculopathy M54.16 Active 191332506 Problem Onychomycosis B35.1 Active 335025505 Problem Stage 3 chronic kidney disease N18.3 Active 429708290 Problem Severe episode of recurrent major depressive disorder, without psychotic features F33.2 Active 60404308 Problem Chronic bronchitis, unspecified chronic bronchitis type J42 Active 54803428 Problem Pseudobulbar affect F48.2 Active 08579004 Problem Intractable cyclical vomiting with nausea G43.A1 Active 62441510 Problem Coronary artery disease involving kotlik coronary artery, angina presence unspecified, unspecified whether kotlik or transplanted heart I25.10 Active 3315383137430 Problem Hyperlipidemia, unspecified hyperlipidemia type E78.5 Active 70130456 Problem Fibromyalgia M79.7 Active 539963487 Problem Anxiety F41.9 Active 68668118 Problem Barretts esophagus with dysplasia K22.719 Active 1362966322776520 Problem Chronic kidney disease, stage 2 (mild) N18.2 Active 517077852 Problem Arthritis M19.90 Active 9031320 Problem Prediabetes R73.03 Active [id number] ALLERGIES No Information ENCOUNTERS Encounter Location Date Diagnosis [facility] [id number] [address] Oct, [facility] [address] [address] 14 Oct, 2017 Arthritis M19.90 [facility] [id number] [address] Oct, Anxiety F41.9 and Arthritis M19.90 [facility] [id number] [place] [address] Oct, Essential hypertension I10 ; Barretts esophagus with dysplasia K22.719 ; Pseudobulbar affect F48.2 ; Arthritis M19.90 ; Onychomycosis B35.1 and Stage 3 chronic kidney disease N18.3 [facility] [id number] [place] [address] September, Arthritis M19.90 [facility] [id number] [place] [address] September, [facility] [id number] [place] [address] Aug, Essential hypertension I10 ; Lumbar radiculopathy M54.16 ; Anxiety F41.9 ; Intractable cyclical vomiting with nausea G43.A1 and Pseudobulbar affect F48.2 [facility] [id number] [place] [address] Aug, Arthritis M19.90 [facility] [id number] [place] [address] Jul, Intractable cyclical vomiting with nausea G43.A1 and Anxiety F41.9 [facility] [address] [place] [address] Jul, [facility] [id number] [place] [address] Jul, Anxiety F41.9 and Arthritis M19.90 [facility] [id number] [place] [address] Jul, Severe episode of recurrent major depressive disorder, without psychotic features F33.2 and Neurocognitive disorder R41.9 [facility] [address] [place] [address] Jun, [facility] [id number] [place] [address] 20 Jun, 2017 Lumbar radiculopathy M54.16 ; Essential hypertension I10 ; Anxiety F41.9 and Chronic bronchitis, unspecified chronic bronchitis type J42 [facility] [id number] [place] [address] 15 Jun, 2017 Anxiety F41.9 [facility] [address] [address] 14 Jun, 2017 [facility] [address] [address] 12 Jun, 2017 Arthritis M19.90 [facility] [address] [address] 05 Jun, 2017 [place] [address] [address] Jun, [facility] [address] [address] May, [facility] [address] [address] May, [facility] [address] [address] May, HPV (human papilloma virus) infection B97.7 [facility] [address] [address] May, Anxiety F41.9 and Arthritis M19.90 [facility] [id number] [place] [address] Apr, [facility] [address] [address] Apr, [facility] [id number] [place] [address] 13 Apr, 2017 Colon cancer screening Z12.11 [facility] [address] [place] [address] Apr, [facility] [address] [address] Apr, [facility] [address] [address] Apr, Arthritis M19.90 and Anxiety F41.[address] [address] 30 Mar, 2017 Well woman exam Z01.419 and Colon cancer screening Z12.[address] [address] 14 Mar, 2017 [facility] [address] [address] Mar, Anxiety F41.9 and Arthritis M19.[address] [address] Feb, Encounter for immunization Z23 ; Essential hypertension I10 ; Lumbar radiculopathy M54.16 ; Chronic depression F32.9 ; Routine adult health maintenance Z00.00 and Chronic bronchitis, unspecified chronic bronchitis type J42 [address] [address] Feb, Arthritis M19.90 and Anxiety F41.[address] [address] Jan, Arthritis M19.90 and Anxiety F41.[address] [address] Dec, Arthritis M19.90 and Anxiety F41.[address] [address] Dec, Lumbar radiculopathy M54.16 and Chronic depression F32.[address] [address] Dec, [facility] [address] [place] [address] Dec, Foot drop, right foot M21.371 ; Coronary artery disease involving kotlik coronary artery, angina presence unspecified, unspecified whether kotlik or transplanted heart I25.10 and Depressive disorder, not elsewhere classified F32.9 [facility] [id number] [place] [address] Nov, Arthritis M19.90 [facility] [id number] [place] [address] Nov, [facility] [address] [address] Oct, [facility] [id number] [place] [address] Oct, Essential hypertension I10 ; Anxiety F41.9 ; Arthritis M19.90 and Fibromyalgia M79.7 [facility] [id number] [place] [address] September, Anxiety F41.9 [facility] [id number] [place] [address] September, Arthritis M19.90 [facility] [id number] [place] [address] Aug, Dental examination Z01.20 [facility] [id number] [place] [address] Aug, Anxiety F41.9 [facility] [id number] [place] [address] Aug, [facility] [id number] [place] [address] Aug, Anxiety F41.9 [facility] [id number] [place] [address] Aug, Essential hypertension I10 and Arthritis M19.90 [facility] [address] [address] Aug, Depressive disorder, not elsewhere classified F32.9 [facility] [id number] [place] [address] Jul, Abrasion, unspecified lesser toe(s), sequela S90.416S and Local infection of the skin and subcutaneous tissue, unspecified L08.9 [facility] [id number] [place] [address] Jul, Prediabetes R73.03 and Essential hypertension I10 [facility] [id number] [place] [address] Jul, Abnormal glucose level R73.09 [address] [address] Jul, [facility] [id number] [place] [address] Jul, Abnormal glucose level R73.09 [facility] [address] [place] [address] Jul, Fibromyalgia M79.7 ; Arthritis M19.90 ; Chronic kidney disease, stage 2 (mild) N18.2 and Depressive disorder, not elsewhere classified F32.9 [facility] [address] [place] [address] Jul, [facility] [address] [place] [address] Jul, [facility] [place] [address] [place] [address] Jul, [facility] [id number] [place] [address] Jul, Arthritis M19.90 ; Depressive disorder, not elsewhere classified F32.9 ; Fibromyalgia M79.7 and Constipation, unspecified constipation type K59.00 [facility] [id number] [place] [address] 15 Jun, 2016 Anxiety F41.9 [facility] [address] [address] 14 Jun, 2016 Anxiety F41.9 and Fibromyalgia M79.7 [facility] [address] [address] 11 Jun, 2016 [facility] [id number] [place] [address] 10 Jun, 2016 Arthritis M19.90 ; Depressive disorder, not elsewhere classified F32.9 ; Barretts esophagus with dysplasia K22.719 ; Edema, unspecified type R60.9 and Fibromyalgia M79.7 [facility] [place] [address] [address] 06 Jun, 2016 [place] [place] [address] [place] [address] May, [facility] [address] [place] [address] May, Dyspnea on exertion R06.09 ; Coronary artery disease involving kotlik coronary artery, angina presence unspecified, unspecified whether kotlik or transplanted heart I25.10 and Arthritis M19.90 [facility] [address] [address] May, [facility] [address] [address] Apr, Arthritis M19.90 [facility] [address] [address] Apr, Arthritis M19.90 and Acute cystitis without hematuria N30.00 [facility] [place] [address] [facility] [id number] [place] [id number] Apr, [facility] [address] [address] Apr, Fibromyalgia M79.7 [facility] [address] [address] Apr, Arthritis M19.90 and Onychomycosis B35.1 [facility] [id number] [place] [address] Mar, [facility] [address] [address] Mar, Acute gout involving toe of right foot, unspecified cause M10.9 [facility] [address] [address] Mar, [facility] [id number] [place] [address] Feb, [facility] [id number] [place] [address] Feb, [facility] [id number] [place] [address] Feb, Arthritis M19.90 [facility] [address] [place] [address] 23 Jan, 2016 [facility] [id number] [place] [address] 19 Jan, 2016 [facility] [address] [address] 16 Jan, 2016 [facility] [address] [place] [address] 16 Jan, 2016 [facility] [address] [address] 12 Jan, 2016 Coronary artery disease involving kotlik coronary artery, angina presence unspecified, unspecified whether kotlik or transplanted heart I25.10 ; Arthritis M19.90 and Edema, unspecified type R60.9 [facility] [address] [address] 07 Jan, 2016 [facility] [id number] [place] [address] Jan, [facility] [address] [address] Jan, Anxiety F41.9 and Depressive disorder, not elsewhere classified F32.9 [facility] [address] [address] Dec, Dementia without behavioral disturbance, unspecified dementia type F03.90 and Reactive depression F32.9 [facility] [address] [place] [address] Dec, [facility] [id number] [place] [address] Dec, [facility] [id number] [place] [address] Nov, Depressive disorder, not elsewhere classified F32.9 and Anxiety F41.9 [facility] [address] [place] [address] Nov, Coronary artery disease involving kotlik coronary artery, angina presence unspecified, unspecified whether kotlik or transplanted heart I25.10 ; Fibromyalgia M79.7 ; Arthritis M19.90 ; Anxiety F41.9 ; Hyperlipidemia, unspecified hyperlipidemia type E78.5 and Barretts esophagus with dysplasia K22.719 [facility] [address] [address] Nov, IMMUNIZATIONS No Known Immunizations SOCIAL HISTORY Never Assessed REASON FOR VISIT PLAN OF CARE VITAL SIGNS MEDICATIONS Unknown [...]
--- OUTSIDE RECORDS SUMMARY | 2018-12-14 12:04 | XMS REPORT ---
Author Author NATALIESHANIQUA CYR [facility] Address [address] [place] [address] Care Team Providers Care Telephone Coin Box Collector Name Role Phone SHANIQUA ESTRADA Unavailable PROBLEMS Type Condition ICD9-CM Code RVT46-SM Code Onset Dates Condition Status SNOMED Code Problem Essential hypertension I10 Active 00949913 Problem Chronic depression F32.9 Active 469603292 Problem Lumbar radiculopathy M54.16 Active 173925775 Problem Onychomycosis B35.1 Active 770475876 Problem Stage 3 chronic kidney disease N18.3 Active 206098424 Problem Severe episode of recurrent major depressive disorder, without psychotic features F33.2 Active 05674562 Problem Chronic bronchitis, unspecified chronic bronchitis type J42 Active 93727870 Problem Pseudobulbar affect F48.2 Active 02175834 Problem Intractable cyclical vomiting with nausea G43.A1 Active 48766461 Problem Coronary artery disease involving [place] coronary artery, angina presence unspecified, unspecified whether [place] or transplanted heart I25.10 Active 0488852020735 Problem Hyperlipidemia, unspecified hyperlipidemia type E78.5 Active 52907094 Problem Fibromyalgia M79.7 Active 682352344 Problem Anxiety F41.9 Active 27134678 Problem Barretts esophagus with dysplasia K22.719 Active 2640143670192106 Problem Chronic kidney disease, stage 2 (mild) N18.2 Active 414543135 Problem Arthritis M19.90 Active 1159582 Problem Prediabetes R73.03 Active 651227757 ALLERGIES No Information ENCOUNTERS Encounter Location Date Diagnosis [facility] [id number] [address] Oct, [facility] [id number], [place] [address] Oct, [facility] [id number], [place] [address] Oct, Arthritis M19.90 [facility] [id number] [place] [address] Oct, Anxiety F41.9 and Arthritis M19.90 [facility] [id number] [place] [address] Oct, Essential hypertension I10 ; Barretts esophagus with dysplasia K22.719 ; Pseudobulbar affect F48.2 ; Arthritis M19.90 ; Onychomycosis B35.1 and Stage 3 chronic kidney disease N18.3 [facility] [id number] [place] [address] September, Arthritis M19.90 [facility] [id number] [place] [address] September, [facility] [id number] [place] [address] Aug, Essential hypertension I10 ; Lumbar radiculopathy M54.16 ; Anxiety F41.9 ; Intractable cyclical vomiting with nausea G43.A1 and Pseudobulbar affect F48.2 [facility] [id number] [place] [address] Aug, Arthritis M19.90 [facility] [id number] [place] [address] Jul, Intractable cyclical vomiting with nausea G43.A1 and Anxiety F41.9 [facility] [id number] [place] [address] Jul, [facility] [id number] [place] [address] Jul, Anxiety F41.9 and Arthritis M19.90 [facility] [id number] [place] [address] Jul, Severe episode of recurrent major depressive disorder, without psychotic features F33.2 and Neurocognitive disorder R41.9 [facility] [id number] [place] [address] 27 Jun, 2017 [facility] [address] [address] Jun, Lumbar radiculopathy M54.16 ; Essential hypertension I10 ; Anxiety F41.9 and Chronic bronchitis, unspecified chronic bronchitis type J42 [facility] [address] [address] 15 Jun, 2017 Anxiety F41.9 [facility] [address] [address] 14 Jun, 2017 [facility] [address] [address] Jun, Arthritis M19.90 [facility] [address] [address] Jun, [facility] [address] [address] Jun, [facility] [address] [address] May, [facility] [address] [address] May, [facility] [id number] [place] [address] May, HPV (human papilloma virus) infection B97.7 [facility] [id number] [place] [address] May, Anxiety F41.9 and Arthritis M19.90 [facility] [address] [address] Apr, [facility] [address] [address] Apr, [facility] [address] [address] 13 Apr, 2017 Colon cancer screening Z12.11 [facility] [address] [address] 11 Apr, 2017 [facility] [id number] [place] [address] 11 Apr, 2017 [facility] [id number] [place] [address] 07 Apr, 2017 Arthritis M19.90 and Anxiety F41.9 [facility] [id number] [place] [address] 30 Mar, 2017 Well woman exam Z01.419 and Colon cancer screening Z12.11 [facility] [id number] [place] [address] 14 Mar, 2017 [facility] [id number] [place] [address] 13 Mar, 2017 Anxiety F41.9 and Arthritis M19.90 [facility] [id number] [place] [address] 19 Feb, 2017 Encounter for immunization Z23 ; Essential hypertension I10 ; Lumbar radiculopathy M54.16 ; Chronic depression F32.9 ; Routine adult health maintenance Z00.00 and Chronic bronchitis, unspecified chronic bronchitis type J42 [facility] [id number] [place] [address] Feb, Arthritis M19.90 and Anxiety F41.9 [facility] [id number] [place] [address] Jan, Arthritis M19.90 and Anxiety F41.9 [facility] [id number] [place] [address] Dec, Arthritis M19.90 and Anxiety F41.9 [facility] [id number] [place] [address] Dec, Lumbar radiculopathy M54.16 and Chronic depression F32.9 [facility] [id number] [place] [address] Dec, [facility] [id number] [place] [address] Dec, Foot drop, right foot M21.371 ; Coronary artery disease involving [place] coronary artery, angina presence unspecified, unspecified whether [place] or transplanted heart I25.10 and Depressive disorder, not elsewhere classified F32.9 [facility] [id number] [place] [address] Nov, Arthritis M19.90 [facility] [address] [address] Nov, [facility] [id number] [place] [address] Oct, [facility] [id number] [place] [address] Oct, Essential hypertension I10 ; Anxiety F41.9 ; Arthritis M19.90 and Fibromyalgia M79.7 [facility] [id number] [place] [address] September, Anxiety F41.9 [facility] [id number] [place] [address] September, Arthritis M19.90 [facility] [id number] [place] [address] Aug, Dental examination Z01.20 [facility] [id number] [place] [address] Aug, Anxiety F41.9 [facility] [id number] [place] [address] Aug, [facility] [id number] [place] [address] Aug, Anxiety F41.9 [facility] [address] [place] [address] Aug, Essential hypertension I10 and Arthritis M19.90 [facility] [id number] [place] [address] Aug, Depressive disorder, not elsewhere classified F32.9 [facility] [address], [place] [address] Jul, Abrasion, unspecified lesser toe(s), sequela S90.416S and Local infection of the skin and subcutaneous tissue, unspecified L08.9 [facility] [address], [place] [address] Jul, Prediabetes R73.03 and Essential hypertension I10 [facility] [id number] [place] [address] Jul, Abnormal glucose level R73.09 [facility] [id number] [place] [id number] Jul, [facility] [id number] [place] [address] Jul, Abnormal glucose level R73.09 [facility] [id number] [place] [address] 16 Jul, 2016 Fibromyalgia M79.7 ; Arthritis M19.90 ; Chronic kidney disease, stage 2 (mild) N18.2 and Depressive disorder, not elsewhere classified F32.9 [facility] [address], [place] [address] 14 Jul, 2016 [facility] [id number] [place] [address] Jul, [facility] [id number] [place] [address] Jul, [facility] [address], [place] [address] Jul, Arthritis M19.90 ; Depressive disorder, not elsewhere classified F32.9 ; Fibromyalgia M79.7 and Constipation, unspecified constipation type K59.00 [facility] [address], [place] [address] 15 Jun, 2016 Anxiety F41.9 [facility] [id number] [place] [address] 14 Jun, 2016 Anxiety F41.9 and Fibromyalgia M79.7 [facility] [id number] [place] [address] 11 Jun, 2016 [facility] [id number] [place] [address] 10 Jun, 2016 Arthritis M19.90 ; Depressive disorder, not elsewhere classified F32.9 ; Barretts esophagus with dysplasia K22.719 ; Edema, unspecified type R60.9 and Fibromyalgia M79.7 [facility] [id number] [place] [address] 06 Jun, 2016 [facility] [address], [place] [address] May, [facility] [id number] [place] [address] May, Dyspnea on exertion R06.09 ; Coronary artery disease involving [place] coronary artery, angina presence unspecified, unspecified whether [place] or transplanted heart I25.10 and Arthritis M19.90 [facility] [address], [place] [address] May, [facility] [address], [place] [address] Apr, Arthritis M19.90 [facility] [id number] [place] [address] Apr, Arthritis M19.90 and Acute cystitis without hematuria N30.00 [facility] [place] [address] [facility] [id number] [id number] Apr, [facility] [id number] [place] [address] Apr, Fibromyalgia M79.7 [facility] [id number] [place] [address] Apr, Arthritis M19.90 and Onychomycosis B35.1 [facility] [id number] [place] [address] Mar, [facility] [id number] [place] [address] Mar, Acute gout involving toe of right foot, unspecified cause M10.9 [facility] [id number] [place] [address] Mar, [facility] [id number] [place] [address] Feb, [facility] [id number] [place] [address] Feb, [facility] [id number] [place] [address] Feb, Arthritis M19.90 [facility] [id number] [place] [address] Jan, [facility] [id number] [place] [address] Jan, [facility] [id number] [place] [address] 16 Jan, 2016 [facility] [id number] [place] [address] Jan, [facility] [id number] [place] [address] Jan, Coronary artery disease involving [place] coronary artery, angina presence unspecified, unspecified whether [place] or transplanted heart I25.10 ; Arthritis M19.90 and Edema, unspecified type R60.9 [facility] [id number] [place] [address] Jan, [facility] [id number] [place] [address] Jan, [facility] [id number] [place] [address] Jan, Anxiety F41.9 and Depressive disorder, not elsewhere classified F32.9 [facility] [id number] [place] [address] Dec, Dementia without behavioral disturbance, unspecified dementia type F03.90 and Reactive depression F32.9 [facility] [id number] [place] [address] Dec, [facility] [id number] [place] [address] Dec, [facility] [id number] [place] [address] Nov, Depressive disorder, not elsewhere classified F32.9 and Anxiety F41.9 [facility] [id number] [place] [address] Nov, Coronary artery disease involving [place] coronary artery, angina presence unspecified, unspecified whether [place] or transplanted heart I25.10 ; Fibromyalgia M79.7 ; Arthritis M19.90 ; Anxiety F41.9 ; Hyperlipidemia, unspecified hyperlipidemia type E78.5 and Barretts esophagus with dysplasia K22.719 [facility] [id number] [place] [address] Nov, IMMUNIZATIONS No Known Immunizations SOCIAL HISTORY Never Assessed REASON FOR VISIT [employer] Hx updated PLAN OF CARE VITAL SIGNS MEDICATIONS Unknown [...]
--- OUTSIDE RECORDS SUMMARY | 2018-12-14 12:04 | XMS REPORT ---
Author Author DELMI BYRNES Organization [facility] Address [address] [place] [address] Care Team Providers Care Fork Assembler Name Role Phone DELMI BYRNES Unavailable PROBLEMS Type Condition ICD9-CM Code QHZ92-FQ Code Onset Dates Condition Status SNOMED Code Problem Chronic kidney disease, stage 2 (mild) N18.2 Active 301298824 Problem Prediabetes R73.03 Active 992555653 Problem Essential hypertension I10 Active 18228963 Problem Pseudobulbar affect F48.2 Active 56684749 Problem Intractable cyclical vomiting with nausea G43.A1 Active 86349911 Problem Chronic depression F32.9 Active 564088087 Problem Lumbar radiculopathy M54.16 Active 191606406 Problem Severe episode of recurrent major depressive disorder, without psychotic features F33.2 Active 95839952 Problem Chronic bronchitis, unspecified chronic bronchitis type J42 Active 13681001 Problem Hyperlipidemia, unspecified hyperlipidemia type E78.5 Active 78119940 Problem Arthritis M19.90 Active 0317145 Problem Coronary artery disease involving lovelock coronary artery, angina presence unspecified, unspecified whether lovelock or transplanted heart I25.10 Active 4652760708751 Problem Fibromyalgia M79.7 Active 226268458 Problem Barretts esophagus with dysplasia K22.719 Active 3649804662526042 Problem Anxiety F41.9 Active 59974158 ALLERGIES No Information ENCOUNTERS Encounter Location Date Diagnosis [facility] [address] [facility] [id number] [address] Oct, [facility] [address] [address] September, [facility] [id number] [address] Aug, Essential hypertension I10 ; Lumbar radiculopathy M54.16 ; Anxiety F41.9 ; Intractable cyclical vomiting with nausea G43.A1 and Pseudobulbar affect F48.2 [place] [id number] [place] [address] Aug, Arthritis M19.90 [facility] [id number] [place] [address] Jul, Intractable cyclical vomiting with nausea G43.A1 and Anxiety F41.9 [place] [address] [address] Jul, [place] [address] [address] Jul, Anxiety F41.9 and Arthritis M19.90 [place] [address] [address] Jul, Severe episode of recurrent major depressive disorder, without psychotic features F33.2 and Neurocognitive disorder R41.9 [place] [address] [address] Jun, [place] [address] [address] Jun, Lumbar radiculopathy M54.16 ; Essential hypertension I10 ; Anxiety F41.9 and Chronic bronchitis, unspecified chronic bronchitis type J42 [facility] [place] [id number] [place] [address] 15 Jun, 2017 Anxiety F41.9 [facility] [place] [id number] [place] [address] 14 Jun, 2017 [place] [address] [address] Jun, Arthritis M19.90 [facility] [address] [address] Jun, [place] [address] [address] Jun, [facility] [address] [address] May, [facility] [id number] [place] [address] May, [facility] [id number] [place] [address] May, HPV (human papilloma virus) infection B97.7 [facility] [id number] [place] [address] May, Anxiety F41.9 and Arthritis M19.90 [facility] [id number] [place] [address] 18 Apr, 2017 [facility] [id number] [place] [address] 15 Apr, 2017 [facility] [id number] [place] [address] 13 Apr, 2017 Colon cancer screening Z12.11 [facility] [id number] [place] [address] 11 Apr, 2017 [facility] [id number] [place] [address] Apr, [facility] [id number] [place] [address] 07 Apr, 2017 Arthritis M19.90 and Anxiety F41.9 [facility] [address] [place] [address] 30 Mar, 2017 Well woman exam Z01.419 and Colon cancer screening Z12.11 [facility] [id number] [place] [address] 14 Mar, 2017 [facility] [address] [place] [address] 13 Mar, 2017 Anxiety F41.9 and Arthritis M19.90 [facility] [id number] [place] [address] Feb, Encounter for immunization Z23 ; Essential hypertension I10 ; Lumbar radiculopathy M54.16 ; Chronic depression F32.9 ; Routine adult health maintenance Z00.00 and Chronic bronchitis, unspecified chronic bronchitis type J42 [facility] [id number] [place] [address] 16 Feb, 2017 Arthritis M19.90 and Anxiety F41.9 [place] [address] [address] Jan, Arthritis M19.90 and Anxiety F41.9 [place] [address] [address] Dec, Arthritis M19.90 and Anxiety F41.9 [place] [address] [address] Dec, Lumbar radiculopathy M54.16 and Chronic depression F32.9 [facility] [id number] [place] [address] Dec, [place] [address] [address] Dec, Foot drop, right foot M21.371 ; Coronary artery disease involving lovelock coronary artery, angina presence unspecified, unspecified whether lovelock or transplanted heart I25.10 and Depressive disorder, not elsewhere classified F32.9 [facility] [place] [id number] [place] [address] Nov, Arthritis M19.90 [facility] [id number] [place] [address] Nov, [place] [address] [address] Oct, [facility] [id number] [place] [address] Oct, Essential hypertension I10 ; Anxiety F41.9 ; Arthritis M19.90 and Fibromyalgia M79.7 [facility] [id number] [place] [address] September, Anxiety F41.9 [facility] [id number] [place] [address] September, Arthritis M19.90 [facility] [id number] [place] [address] Aug, Dental examination Z01.20 [facility] [id number] [place] [address] Aug, Anxiety F41.9 [place] [address] [address] Aug, [place] [address] [address] Aug, Anxiety F41.9 [facility] [place] [id number] [place] [address] Aug, Essential hypertension I10 and Arthritis M19.90 [place] [id number] [place] [address] Aug, Depressive disorder, not elsewhere classified F32.9 [facility] [id number] [place] [address] Jul, Abrasion, unspecified lesser toe(s), sequela S90.416S and Local infection of the skin and subcutaneous tissue, unspecified L08.9 [facility] [address] [place] [address] Jul, Prediabetes R73.03 and Essential hypertension I10 [facility] [place] [id number] [place] [address] Jul, Abnormal glucose level R73.09 [facility] [id number] [place] [id number] Jul, [place] [address] [place] [address] 17 Jul, 2016 Abnormal glucose level R73.09 [place] [address] [address] 16 Jul, 2016 Fibromyalgia M79.7 ; Arthritis M19.90 ; Chronic kidney disease, stage 2 (mild) N18.2 and Depressive disorder, not elsewhere classified F32.9 [place] [address] [address] Jul, [place] [address] [address] Jul, [place] [address] [address] Jul, [place] [address] [address] Jul, Arthritis M19.90 ; Depressive disorder, not elsewhere classified F32.9 ; Fibromyalgia M79.7 and Constipation, unspecified constipation type K59.00 [place] [id number] [place] [address] 15 Jun, 2016 Anxiety F41.9 [facility] [id number] [place] [address] 14 Jun, 2016 Anxiety F41.9 and Fibromyalgia M79.7 [place] [id number] [place] [address] Jun, [facility] [id number] [place] [address] 10 Jun, 2016 Arthritis M19.90 ; Depressive disorder, not elsewhere classified F32.9 ; Barretts esophagus with dysplasia K22.719 ; Edema, unspecified type R60.9 and Fibromyalgia M79.7 [facility] [id number] [place] [address] 06 Jun, 2016 [facility] [address] [address] May, [facility] [id number], [place] [address] May, Dyspnea on exertion R06.09 ; Coronary artery disease involving lovelock coronary artery, angina presence unspecified, unspecified whether lovelock or transplanted heart I25.10 and Arthritis M19.90 [facility] [address] [address] May, [facility] [id number] [place] [address] Apr, Arthritis M19.90 [facility] [id number] [place] [address] Apr, Arthritis M19.90 and Acute cystitis without hematuria N30.00 [facility] [place] [address] [facility] [id number] [id number] Apr, [facility] [address] [place] [address] Apr, Fibromyalgia M79.7 [facility] [address] [place] [address] Apr, Arthritis M19.90 and Onychomycosis B35.1 [facility] [address] [address] Mar, [facility] [address] [place] [address] Mar, Acute gout involving toe of right foot, unspecified cause M10.9 [facility] [address] [address] Mar, [facility] [id number] [place] [address] Feb, [facility] [address] [address] Feb, [facility] [id number] [place] [address] Feb, Arthritis M19.90 [facility] [address] [address] 23 Jan, 2015 [facility] [id number] [place] [address] Jan, [facility] [address] [place] [address] Jan, [facility] [id number] [place] [address] 16 Jan, 2016 [facility] [id number] [place] [address] Jan, Coronary artery disease involving lovelock coronary artery, angina presence unspecified, unspecified whether lovelock or transplanted heart I25.10 ; Arthritis M19.90 and Edema, unspecified type R60.9 [facility] [id number] [place] [address] Jan, [facility] [address] [place] [address] Jan, [facility] [address] [place] [address] Jan, Anxiety F41.9 and Depressive disorder, not elsewhere classified F32.9 [facility] [address] [place] [address] Dec, Dementia without behavioral disturbance, unspecified dementia type F03.90 and Reactive depression F32.9 [facility] [address] [address] Dec, [facility] [id number] [place] [address] Dec, [facility] [address] [address] Nov, Depressive disorder, not elsewhere classified F32.9 and Anxiety F41.9 [facility] [address] [facility] [id number] [place] [address] 18 Nov, 2015 Coronary artery disease involving lovelock coronary artery, angina presence unspecified, unspecified whether lovelock or transplanted heart I25.10 ; Fibromyalgia M79.7 ; Arthritis M19.90 ; Anxiety F41.9 ; Hyperlipidemia, unspecified hyperlipidemia type E78.5 and Barretts esophagus with dysplasia K22.719 [facility] [address] [facility] [id number] [address] 14 Nov, 2015 IMMUNIZATIONS No Known Immunizations SOCIAL HISTORY Never Assessed REASON FOR VISIT Oxycodone, Alprazolam- 02/28 PLAN OF CARE VITAL SIGNS MEDICATIONS Medication Instructions Dosage Frequency Start Date End Date Duration Status Alprazolam 1 MG Orally Once a day, hs 1 tablet 28 days Active Oxycodone HCl 5 mg Orally every 6 hrs, prn pain 1 tablet Feb, 28 days Active RESULTS No Results PROCEDURES [...]
--- OUTSIDE RECORDS SUMMARY | 2018-12-14 12:05 | XMS REPORT ---
Author Author DELMI BYRNES Organization [facility] Address [address] [place] [address] Care Team Providers Care Tree Expert Name Role Phone DELMI BYRNES Unavailable PROBLEMS Type Condition ICD9-CM Code IFC45-LT Code Onset Dates Condition Status SNOMED Code Problem Essential hypertension I10 Active 42019640 Problem Chronic depression F32.9 Active 546318556 Problem Lumbar radiculopathy M54.16 Active 394150106 Problem Onychomycosis B35.1 Active 078552135 Problem Stage 3 chronic kidney disease N18.3 Active 818304082 Problem Severe episode of recurrent major depressive disorder, without psychotic features F33.2 Active 12687686 Problem Chronic bronchitis, unspecified chronic bronchitis type J42 Active 42599260 Problem Pseudobulbar affect F48.2 Active 50522166 Problem Intractable cyclical vomiting with nausea G43.A1 Active 41760749 Problem Coronary artery disease involving yomba shoshone coronary artery, angina presence unspecified, unspecified whether yomba shoshone or transplanted heart I25.10 Active 5520477304668 Problem Hyperlipidemia, unspecified hyperlipidemia type E78.5 Active 97119295 Problem Fibromyalgia M79.7 Active 367694527 Problem Anxiety F41.9 Active 65832518 Problem Barretts esophagus with dysplasia K22.719 Active 5961473742693632 Problem Chronic kidney disease, stage 2 (mild) N18.2 Active 083365807 Problem Arthritis M19.90 Active 9947316 Problem Prediabetes R73.03 Active 642255982 ALLERGIES No Information ENCOUNTERS Encounter Location Date Diagnosis [facility] [id number] [address] 26 Oct, 2017 [facility] [address], [place] [address] 14 Oct, 2017 Arthritis M19.90 [facility] [id number], [place] [address] Oct, Anxiety F41.9 and Arthritis M19.90 [facility] [id number] [place] [address] Oct, Essential hypertension I10 ; Barretts esophagus with dysplasia K22.719 ; Pseudobulbar affect F48.2 ; Arthritis M19.90 ; Onychomycosis B35.1 and Stage 3 chronic kidney disease N18.3 [facility] [id number] [place] [address] September, Arthritis M19.90 [facility] [id number] [place] [address] September, [facility] [id number] [place] [address] Aug, Essential hypertension I10 ; Lumbar radiculopathy M54.16 ; Anxiety F41.9 ; Intractable cyclical vomiting with nausea G43.A1 and Pseudobulbar affect F48.2 [facility] [id number] [place] [address] Aug, Arthritis M19.90 [facility] [id number] [place] [phone] Jul, Intractable cyclical vomiting with nausea G43.A1 and Anxiety F41.9 [facility] [id number] [place] [address] Jul, [facility] [id number] [place] [address] Jul, Anxiety F41.9 and Arthritis M19.90 [facility] [id number] [place] [address] Jul, Severe episode of recurrent major depressive disorder, without psychotic features F33.2 and Neurocognitive disorder R41.9 [facility] [address] [place] [address] Jun, [facility] [id number] [place] [address] 20 Jun, 2017 Lumbar radiculopathy M54.16 ; Essential hypertension I10 ; Anxiety F41.9 and Chronic bronchitis, unspecified chronic bronchitis type J42 [facility] [id number] [place] [phone] 15 Jun, 2017 Anxiety F41.9 [facility] [address] [address] 14 Jun, 2017 [facility] [address] [address] 12 Jun, 2017 Arthritis M19.90 [address] [address] 05 Jun, 2017 [facility] [facility] [address] [address] Jun, [facility] [address] [address] May, [facility] [address] [address] May, [address] [place] [address] [address] May, HPV (human papilloma virus) infection B97.7 [facility] [facility] [address] [address] May, Anxiety F41.9 and Arthritis M19.90 [facility] [id number] [place] [address] Apr, [address] [place] [address] [address] Apr, [facility] [id number] [place] [address] 13 Apr, 2017 Colon cancer screening Z12.11 [facility] [address] [place] [address] Apr, [address] [place] [address] Apr, [address] [place] [address] [address] Apr, Arthritis M19.90 and Anxiety F41.[address] [address] 30 Mar, 2017 Well woman exam Z01.419 and Colon cancer screening Z12.[address] [address] 14 Mar, 2017 [facility] [facility] [address] [address] Mar, Anxiety F41.9 and Arthritis M19.[address] [address] Feb, Encounter for immunization Z23 ; Essential hypertension I10 ; Lumbar radiculopathy M54.16 ; Chronic depression F32.9 ; Routine adult health maintenance Z00.00 and Chronic bronchitis, unspecified chronic bronchitis type J42 [address] [address] Feb, Arthritis M19.90 and Anxiety F41.[address] [address] Jan, Arthritis M19.90 and Anxiety F41.[address] [address] Dec, Arthritis M19.90 and Anxiety F41.[address] [address] Dec, Lumbar radiculopathy M54.16 and Chronic depression F32.[address] [address] Dec, [facility] [address] [place] [address] Dec, Foot drop, right foot M21.371 ; Coronary artery disease involving yomba shoshone coronary artery, angina presence unspecified, unspecified whether yomba shoshone or transplanted heart I25.10 and Depressive disorder, not elsewhere classified F32.9 [facility] [id number] [place] [address] Nov, Arthritis M19.90 [facility] [id number] [place] [address] Nov, [address] [place] [address] [address] Oct, [facility] [facility] [id number] [place] [address] Oct, Essential hypertension I10 ; Anxiety F41.9 ; Arthritis M19.90 and Fibromyalgia M79.7 [facility] [id number] [place] [address] September, Anxiety F41.9 [facility] [id number] [place] [address] September, Arthritis M19.90 [facility] [id number] [place] [address] Aug, Dental examination Z01.20 [facility] [id number] [place] [address] Aug, Anxiety F41.9 [facility] [id number] [place] [address] Aug, [facility] [facility] [id number] [place] [address] Aug, Anxiety F41.9 [facility] [id number] [place] [address] Aug, Essential hypertension I10 and Arthritis M19.90 [facility] [place], [place] [address] Aug, Depressive disorder, not elsewhere classified F32.9 [facility] [id number] [place] [address] Jul, Abrasion, unspecified lesser toe(s), sequela S90.416S and Local infection of the skin and subcutaneous tissue, unspecified L08.9 [facility] [id number] [place] [address] Jul, Prediabetes R73.03 and Essential hypertension I10 [facility] [id number] [place] [address] Jul, Abnormal glucose level R73.09 [address] [id number] Jul, [facility] [id number] [place] [address] Jul, Abnormal glucose level R73.09 [facility] [id number] [place] [address] Jul, Fibromyalgia M79.7 ; Arthritis M19.90 ; Chronic kidney disease, stage 2 (mild) N18.2 and Depressive disorder, not elsewhere classified F32.9 [facility] [id number] [place] [address] Jul, [facility] [id number] [place] [address] Jul, [address] [place] [id number] [place] [address] Jul, [facility] [id number] [place] [address] Jul, Arthritis M19.90 ; Depressive disorder, not elsewhere classified F32.9 ; Fibromyalgia M79.7 and Constipation, unspecified constipation type K59.00 [facility] [id number] [place] [address] 15 Jun, 2016 Anxiety F41.9 [facility] [address], [place] [address] 14 Jun, 2016 Anxiety F41.9 and Fibromyalgia M79.7 [facility] [address], [place] [address] 11 Jun, 2016 [facility] [id number] [place] [address] 10 Jun, 2016 Arthritis M19.90 ; Depressive disorder, not elsewhere classified F32.9 ; Barretts esophagus with dysplasia K22.719 ; Edema, unspecified type R60.9 and Fibromyalgia M79.7 [address] [place], [place] [address] 06 Jun, 2016 [address] [id number] [place] [address] May, [facility] [id number] [place] [address] May, Dyspnea on exertion R06.09 ; Coronary artery disease involving y[place]a shoshone coronary artery, angina presence unspecified, unspecified whether yomba shoshone or transplanted heart I25.10 and Arthritis M19.90 [facility] [address] [address] May, [facility] [address], [place] [address] Apr, Arthritis M19.90 [facility] [address], [place] [address] Apr, Arthritis M19.90 and Acute cystitis without hematuria N30.00 [facility] [place] [address] [facility] [id number] [place] [id number] Apr, [facility] [address], [place] [address] Apr, Fibromyalgia M79.7 [facility] [address], [place] [address] Apr, Arthritis M19.90 and Onychomycosis B35.1 [facility] [id number] [place] [address] Mar, [facility] [address], [place] [address] Mar, Acute gout involving toe of right foot, unspecified cause M10.9 [facility] [address], [place] [address] Mar, [facility] [id number] [place] [address] Feb, [facility] [id number] [place] [address] Feb, [facility] [id number] [place] [address] Feb, Arthritis M19.90 [facility] [id number] [place] [address] 23 Jan, 2016 [facility] [id number] [place] [address] 19 Jan, 2016 [facility] [address], [place] [address] 16 Jan, 2016 [facility] [id number] [place] [address] 16 Jan, 2016 [facility] [address], [place] [address] 12 Jan, 2016 Coronary artery disease involving yomba shoshone coronary artery, angina presence unspecified, unspecified whether yomba shoshone or transplanted heart I25.10 ; Arthritis M19.90 and Edema, unspecified type R60.9 [facility] [address], [place] [address] 07 Jan, 2016 [facility] [id number] [place] [address] Jan, [facility] [address], [place] [address] Jan, Anxiety F41.9 and Depressive disorder, not elsewhere classified F32.9 [facility] [place] [address], [place] [address] Dec, Dementia without behavioral disturbance, unspecified dementia type F03.90 and Reactive depression F32.9 [facility] [id number] [place] [address] Dec, [facility] [facility] [id number] [place] [address] Dec, [facility] [facility] [id number] [place] [address] Nov, Depressive disorder, not elsewhere classified F32.9 and Anxiety F41.9 [facility] [place] [id number] [place] [address] Nov, Coronary artery disease involving yomba shoshone coronary artery, angina presence unspecified, unspecified whether yomba shoshone or transplanted heart I25.10 ; Fibromyalgia M79.7 ; Arthritis M19.90 ; Anxiety F41.9 ; Hyperlipidemia, unspecified hyperlipidemia type E78.5 and Barretts esophagus with dysplasia K22.719 [address] [address], [place] [address] Nov, IMMUNIZATIONS No Known Immunizations SOCIAL HISTORY Never Assessed REASON FOR VISIT Controlled Med Refill 05/23 PLAN OF CARE VITAL SIGNS MEDICATIONS Medication Instructions Dosage Frequency Start Date End Date Duration Status Oxycodone HCl 5 mg Orally every 6 hrs, prn pain 1 tablet May, 28 days Active Alprazolam 1 MG Orally [...]
--- OUTSIDE RECORDS SUMMARY | 2018-12-14 12:06 | XMS REPORT ---
Author Author OUMAR HAMMER Organization [facility] Address [address] [place] [address] Care Team Providers Care Tour Conductor Name Role Phone OUMAR HAMMER Unavailable PROBLEMS Type Condition ICD9-CM Code [id number] Code Onset Dates Condition Status SNOMED Code Problem Essential hypertension I10 Active 39084105 Problem Chronic depression F32.9 Active 220798204 Problem Lumbar radiculopathy M54.16 Active 335373969 Problem Onychomycosis B35.1 Active 953880688 Problem Stage 3 chronic kidney disease N18.3 Active 621281979 Problem Severe episode of recurrent major depressive disorder, without psychotic features F33.2 Active 83770076 Problem Chronic bronchitis, unspecified chronic bronchitis type J42 Active 82964354 Problem Pseudobulbar affect F48.2 Active 49245316 Problem Intractable cyclical vomiting with nausea G43.A1 Active 26628614 Problem Coronary artery disease involving ewiiaapaayp coronary artery, angina presence unspecified, unspecified whether ewiiaapaayp or transplanted heart I25.10 Active 2905139056189 Problem Hyperlipidemia, unspecified hyperlipidemia type E78.5 Active 89465650 Problem Fibromyalgia M79.7 Active 715935349 Problem Anxiety F41.9 Active 35008928 Problem Barretts esophagus with dysplasia K22.719 Active 8419323291805757 Problem Chronic kidney disease, stage 2 (mild) N18.2 Active 105692076 Problem Arthritis M19.90 Active 0729363 Problem Prediabetes R73.03 Active [id number] ALLERGIES No Information ENCOUNTERS Encounter Location Date Diagnosis [facility] [address] [facility] [id number] [address] Oct, [facility] [id number] [address] Oct, Arthritis M19.90 [facility] [address] [id number], [place] [address] Oct, Anxiety F41.9 and Arthritis M19.90 [place] [facility] [id number] [place] [address] Oct, Essential hypertension I10 ; Barretts esophagus with dysplasia K22.719 ; Pseudobulbar affect F48.2 ; Arthritis M19.90 ; Onychomycosis B35.1 and Stage 3 chronic kidney disease N18.3 [place] [address] [address] September, Arthritis M19.90 [place] [id number] [place] [address] September, [place] [address] [address] Aug, Essential hypertension I10 ; Lumbar radiculopathy M54.16 ; Anxiety F41.9 ; Intractable cyclical vomiting with nausea G43.A1 and Pseudobulbar affect F48.2 [place] [id number] [place] [address] Aug, Arthritis M19.90 [place] [address] [address] Jul, Intractable cyclical vomiting with nausea G43.A1 and Anxiety F41.9 [place] [id number] [place] [address] Jul, [place] [id number] [place] [address] Jul, Anxiety F41.9 and Arthritis M19.90 [place] [id number] [place] [address] Jul, Severe episode of recurrent major depressive disorder, without psychotic features F33.2 and Neurocognitive disorder R41.9 [place] [id number] [place] [address] Jun, [place] [place] [address] [place] [address] 20 Jun, 2017 Lumbar radiculopathy M54.16 ; Essential hypertension I10 ; Anxiety F41.9 and Chronic bronchitis, unspecified chronic bronchitis type J42 [facility] [id number] [place] [address] 15 Jun, 2017 Anxiety F41.9 [facility] [address] [address] 14 Jun, 2017 [facility] [id number] [place] [address] 12 Jun, 2017 Arthritis M19.90 [facility] [address] [address] 05 Jun, 2017 [facility] [address] [address] Jun, [facility] [address] [address] May, [facility] [id number] [place] [address] May, [facility] [id number] [place] [address] May, HPV (human papilloma virus) infection B97.7 [facility] [facility] [id number] [place] [address] May, Anxiety F41.9 and Arthritis M19.90 [facility] [id number] [place] [address] Apr, [facility] [address] [address] Apr, [facility] [id number] [place] [address] 13 Apr, 2017 Colon cancer screening Z12.11 [facility] [address] [address] Apr, [place] [id number] [place] [address] Apr, [place] [id number] [place] [address] Apr, Arthritis M19.90 and Anxiety F41.9 [place] [address] [address] Mar, Well woman exam Z01.419 and Colon cancer screening Z12.11 [place] [address] [address] 14 Mar, 2017 [place] [address] [address] Mar, Anxiety F41.9 and Arthritis M19.[address] [address] Feb, Encounter for immunization Z23 ; Essential hypertension I10 ; Lumbar radiculopathy M54.16 ; Chronic depression F32.9 ; Routine adult health maintenance Z00.00 and Chronic bronchitis, unspecified chronic bronchitis type J42 [facility] [id number] [place] [address] Feb, Arthritis M19.90 and Anxiety F41.9 [place] [id number] [place] [address] Jan, Arthritis M19.90 and Anxiety F41.9 [place] [id number] [place] [address] Dec, Arthritis M19.90 and Anxiety F41.9 [place] [id number] [place] [address] Dec, Lumbar radiculopathy M54.16 and Chronic depression F32.9 [place] [id number] [place] [address] Dec, [facility] [address] [place] [address] Dec, Foot drop, right foot M21.371 ; Coronary artery disease involving ewiiaapaayp coronary artery, angina presence unspecified, unspecified whether ewiiaapaayp or transplanted heart I25.10 and Depressive disorder, not elsewhere classified F32.9 [facility] [id number] [place] [address] Nov, Arthritis M19.90 [facility] [id number] [place] [address] Nov, [facility] [id number] [place] [address] Oct, [facility] [id number] [place] [address] Oct, Essential hypertension I10 ; Anxiety F41.9 ; Arthritis M19.90 and Fibromyalgia M79.7 [place] [id number] [place] [address] September, Anxiety F41.9 [place] [id number] [place] [address] September, Arthritis M19.90 [facility] [id number] [place] [address] Aug, Dental examination Z01.20 [place] [id number] [place] [address] Aug, Anxiety F41.9 [facility] [id number] [place] [address] Aug, [facility] [id number] [place] [address] Aug, Anxiety F41.9 [facility] [id number] [place] [address] Aug, Essential hypertension I10 and Arthritis M19.90 [facility] [address] [place] [address] Aug, Depressive disorder, not elsewhere classified F32.9 [facility] [id number] [place] [address] Jul, Abrasion, unspecified lesser toe(s), sequela S90.416S and Local infection of the skin and subcutaneous tissue, unspecified L08.9 [facility] [address] [place] [address] Jul, Prediabetes R73.03 and Essential hypertension I10 [place] [id number] [place] [address] Jul, Abnormal glucose level R73.09 [facility] [id number] [place] [id number] Jul, [place] [id number] [place] [address] Jul, Abnormal glucose level R73.09 [place] [address] [place] [address] Jul, Fibromyalgia M79.7 ; Arthritis M19.90 ; Chronic kidney disease, stage 2 (mild) N18.2 and Depressive disorder, not elsewhere classified F32.9 [place] [address] [place] [address] Jul, [facility] [address], [place] [address] Jul, [place] [place] [address] Jul, [facility] [id number] [place] [address] Jul, Arthritis M19.90 ; Depressive disorder, not elsewhere classified F32.9 ; Fibromyalgia M79.7 and Constipation, unspecified constipation type K59.00 [facility] [id number] [place] [address] 15 Jun, 2016 Anxiety F41.9 [facility] [address] [place] [address] 14 Jun, 2016 Anxiety F41.9 and Fibromyalgia M79.7 [facility] [id number] [place] [address] 11 Jun, 2016 [facility] [id number] [place] [address] 10 Jun, 2016 Arthritis M19.90 ; Depressive disorder, not elsewhere classified F32.9 ; Barretts esophagus with dysplasia K22.719 ; Edema, unspecified type R60.9 and Fibromyalgia M79.7 [place] [id number] [place] [address] 06 Jun, 2016 [facility] [id number] [place] [address] May, [facility] [id number] [place] [address] May, Dyspnea on exertion R06.09 ; Coronary artery disease involving ewiiaapaayp coronary artery, angina presence unspecified, unspecified whether ewiiaapaayp or transplanted heart I25.10 and Arthritis M19.90 [facility] [address] [place] [address] May, [facility] [id number] [place] [address] Apr, Arthritis M19.90 [facility] [address] [place] [address] Apr, Arthritis M19.90 and Acute cystitis without hematuria N30.00 [facility] [place] [address] [facility] [id number] [place] [id number] Apr, [facility] [address] [address] Apr, Fibromyalgia M79.7 [facility] [id number] [place] [address] Apr, Arthritis M19.90 and Onychomycosis B35.1 [facility] [id number] [place] [address] Mar, [facility] [id number] [place] [address] Mar, Acute gout involving toe of right foot, unspecified cause M10.9 [facility] [id number] [place] [address] Mar, [facility] [id number] [place] [address] Feb, [facility] [id number] [place] [address] Feb, [facility] [id number] [place] [address] Feb, Arthritis M19.90 [facility] [id number] [place] [address] 23 Jan, 2016 [facility] [id number] [place] [address] 19 Jan, 2016 [facility] [address] [place] [address] 16 Jan, 2016 [facility] [id number] [place] [address] 16 Jan, 2016 [facility] [id number] [place] [address] 12 Jan, 2016 Coronary artery disease involving ewiiaapaayp coronary artery, angina presence unspecified, unspecified whether ewiiaapaayp or transplanted heart I25.10 ; Arthritis M19.90 and Edema, unspecified type R60.9 [facility] [address] [address] 07 Jan, 2016 [facility] [id number] [place] [address] Jan, [place] [address], [place] [address] Jan, Anxiety F41.9 and Depressive disorder, not elsewhere classified F32.9 [place] [address], [place] [address] Dec, Dementia without behavioral disturbance, unspecified dementia type F03.90 and Reactive depression F32.9 [place] [id number] [place] [address] Dec, [place] [id number] [place] [address] Dec, [address] [address] [place] [address] Nov, Depressive disorder, not elsewhere classified F32.9 and Anxiety F41.9 [place] [id number] [place] [address] Nov, Coronary artery disease involving ewiiaapaayp coronary artery, angina presence unspecified, unspecified whether ewiiaapaayp or transplanted heart I25.10 ; Fibromyalgia M79.7 ; Arthritis M19.90 ; Anxiety F41.9 ; Hyperlipidemia, unspecified hyperlipidemia type E78.5 and Barretts esophagus with dysplasia K22.719 [address] [place] [address] Nov, IMMUNIZATIONS No Known Immunizations SOCIAL HISTORY Never Assessed REASON FOR VISIT Alprazolam 06/29 PLAN OF CARE VITAL SIGNS MEDICATIONS Medication [...]
--- OUTSIDE RECORDS SUMMARY | 2018-12-14 12:06 | XMS REPORT ---
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 Name Role Phone DELMI BYRNES Unavailable PROBLEMS Type Condition ICD9-CM Code TFH64-RE Code Onset Dates Condition Status SNOMED Code Problem Essential hypertension I10 Active 68565620 Problem Chronic depression F32.9 Active 407597540 Problem Lumbar radiculopathy M54.16 Active 625510958 Problem Onychomycosis B35.1 Active 847692402 Problem Stage 3 chronic kidney disease N18.3 Active 013208804 Problem Severe episode of recurrent major depressive disorder, without psychotic features F33.2 Active 99509351 Problem Chronic bronchitis, unspecified chronic bronchitis type J42 Active 44804684 Problem Pseudobulbar affect F48.2 Active 56970219 Problem Intractable cyclical vomiting with nausea G43.A1 Active 19127638 Problem Coronary artery disease involving [place] coronary artery, angina presence unspecified, unspecified whether [place] or transplanted heart I25.10 Active 8959901166713 Problem Hyperlipidemia, unspecified hyperlipidemia type E78.5 Active 86628844 Problem Fibromyalgia M79.7 Active 886220862 Problem Anxiety F41.9 Active 27793284 Problem Barretts esophagus with dysplasia K22.719 Active 2886863695744093 Problem Chronic kidney disease, stage 2 (mild) N18.2 Active 266139435 Problem Arthritis M19.90 Active 2578665 Problem Prediabetes R73.03 Active [id number] ALLERGIES No Information ENCOUNTERS Encounter Location Date Diagnosis [facility] [id number], [place] [address] Oct, [facility] [address], [place] [address] 14 Oct, 2017 Arthritis M19.90 [facility] [id number], [place] [address] Oct, Anxiety F41.9 and Arthritis M19.90 [facility] [id number] [place] [address] Oct, Essential hypertension I10 ; Barretts esophagus with dysplasia K22.719 ; Pseudobulbar affect F48.2 ; Arthritis M19.90 ; Onychomycosis B35.1 and Stage 3 chronic kidney disease N18.3 [facility] [id number] [place] [address] September, Arthritis M19.90 [facility] [id number] [place] [address] September, [facility] [id number] [place] [address] Aug, Essential hypertension I10 ; Lumbar radiculopathy M54.16 ; Anxiety F41.9 ; Intractable cyclical vomiting with nausea G43.A1 and Pseudobulbar affect F48.2 [facility] [facility] [id number] [place] [address] Aug, Arthritis M19.90 [facility] [facility] [id number] [place] [address] Jul, Intractable cyclical vomiting with nausea G43.A1 and Anxiety F41.9 [facility] [facility] [address] [place] [address] Jul, [facility] [id number] [place] [address] Jul, Anxiety F41.9 and Arthritis M19.90 [facility] [id number] [place] [address] Jul, Severe episode of recurrent major depressive disorder, without psychotic features F33.2 and Neurocognitive disorder R41.9 [address] [place] [place] [address] Jun, [facility] [id number] [place] [address] 20 Jun, 2017 Lumbar radiculopathy M54.16 ; Essential hypertension I10 ; Anxiety F41.9 and Chronic bronchitis, unspecified chronic bronchitis type J42 [facility] [id number] [place] [address] 15 Jun, 2017 Anxiety F41.9 [facility] [address] [address] 14 Jun, 2017 [facility] [address] [address] 12 Jun, 2017 Arthritis M19.90 [address] [address] 05 Jun, 2017 [address] [address] [address] Jun, [facility] [address] [address] May, [facility] [address] [address] May, [address] [address] [address] May, HPV (human papilloma virus) infection B97.7 [address] [address] [address] May, Anxiety F41.9 and Arthritis M19.90 [facility] [id number] [place] [address] Apr, [address] [address] Apr, [facility] [id number] [place] [address] 13 Apr, 2017 Colon cancer screening Z12.11 [facility] [address] [place] [address] Apr, [address] [address] Apr, [address] [address] [address] Apr, Arthritis M19.90 and Anxiety F41.[address] [address] 30 Mar, 2017 Well woman exam Z01.419 and Colon cancer screening Z12.[address] [address] 14 Mar, 2017 [address] [address] Mar, Anxiety F41.9 and Arthritis M19.[address] [address] Feb, Encounter for immunization Z23 ; Essential hypertension I10 ; Lumbar radiculopathy M54.16 ; Chronic depression F32.9 ; Routine adult health maintenance Z00.00 and Chronic bronchitis, unspecified chronic bronchitis type J42 [address] [address] Feb, Arthritis M19.90 and Anxiety F41.[address] [address] Jan, Arthritis M19.90 and Anxiety F41.[address] [address] Dec, Arthritis M19.90 and Anxiety F41.[address] [address] Dec, Lumbar radiculopathy M54.16 and Chronic depression F32.[address] [address] Dec, [facility] [address] [place] [address] Dec, Foot drop, right foot M21.371 ; Coronary artery disease involving [place] coronary artery, angina presence unspecified, unspecified whether [place] or transplanted heart I25.10 and Depressive disorder, not elsewhere classified F32.9 [facility] [id number] [place] [address] Nov, Arthritis M19.90 [facility] [id number] [place] [address] Nov, [address] [address] [address] Oct, [facility] [id number] [place] [address] Oct, Essential hypertension I10 ; Anxiety F41.9 ; Arthritis M19.90 and Fibromyalgia M79.7 [facility] [facility] [id number] [place] [address] September, Anxiety F41.9 [facility] [facility] [id number] [place] [address] September, Arthritis M19.90 [facility] [facility] [id number] [place] [address] Aug, Dental examination Z01.20 [address] [facility] [id number] [place] [address] Aug, Anxiety F41.9 [facility] [id number] [place] [address] Aug, [facility] [facility] [id number] [place] [address] Aug, Anxiety F41.9 [facility] [facility] [id number] [place] [address] Aug, Essential hypertension I10 and Arthritis M19.90 [facility] [facility] [address], [place] [address] Aug, Depressive disorder, not elsewhere classified F32.9 [facility] [id number] [place] [address] Jul, Abrasion, unspecified lesser toe(s), sequela S90.416S and Local infection of the skin and subcutaneous tissue, unspecified L08.9 [facility] [id number] [place] [address] Jul, Prediabetes R73.03 and Essential hypertension I10 [address] [facility] [id number] [place] [address] Jul, Abnormal glucose level R73.09 [address] [id number] Jul, [facility] [id number] [place] [address] Jul, Abnormal glucose level R73.09 [address] [place] [address] Jul, Fibromyalgia M79.7 ; Arthritis M19.90 ; Chronic kidney disease, stage 2 (mild) N18.2 and Depressive disorder, not elsewhere classified F32.9 [address] [place] [address] Jul, [facility] [address] [place] [address] Jul, [address] [address] [place] [address] Jul, [facility] [id number] [place] [address] Jul, Arthritis M19.90 ; Depressive disorder, not elsewhere classified F32.9 ; Fibromyalgia M79.7 and Constipation, unspecified constipation type K59.00 [facility] [facility] [id number] [place] [address] 15 Jun, 2016 Anxiety F41.9 [facility] [address], [place] [address] 14 Jun, 2016 Anxiety F41.9 and Fibromyalgia M79.7 [facility] [address], [place] [address] 11 Jun, 2016 [facility] [id number] [place] [address] 10 Jun, 2016 Arthritis M19.90 ; Depressive disorder, not elsewhere classified F32.9 ; Barretts esophagus with dysplasia K22.719 ; Edema, unspecified type R60.9 and Fibromyalgia M79.7 [address], [place] [address] 06 Jun, 2016 [address] [address] [place] [address] May, [facility] [address] [place] [address] May, Dyspnea on exertion R06.09 ; Coronary artery disease involving [place] coronary artery, angina presence unspecified, unspecified whether [place] or transplanted heart I25.10 and Arthritis M19.90 [facility] [address], [place] [address] May, [facility] [address], [place] [address] Apr, Arthritis M19.90 [facility] [address], [place] [address] Apr, Arthritis M19.90 and Acute cystitis without hematuria N30.00 [facility] [place] [address] [facility] [id number] [place] [id number] Apr, [facility] [address], [place] [address] Apr, Fibromyalgia M79.7 [facility] [address], [place] [address] Apr, Arthritis M19.90 and Onychomycosis B35.1 [facility] [id number] [place] [address] Mar, [facility] [address], [place] [address] Mar, Acute gout involving toe of right foot, unspecified cause M10.9 [facility] [address], [place] [address] Mar, [facility] [id number] [place] [address] Feb, [facility] [id number] [place] [address] Feb, [facility] [id number] [place] [address] Feb, Arthritis M19.90 [facility] [address] [place] [address] 23 Jan, 2016 [facility] [id number] [place] [address] 19 Jan, 2016 [facility] [address], [place] [address] 16 Jan, 2016 [facility] [address] [place] [address] 16 Jan, 2016 [facility] [address], [place] [address] 12 Jan, 2016 Coronary artery disease involving [place] coronary artery, angina presence unspecified, unspecified whether [place] or transplanted heart I25.10 ; Arthritis M19.90 and Edema, unspecified type R60.9 [facility] [address], [place] [address] 07 Jan, 2016 [facility] [id number] [place] [address] Jan, [facility] [address], [place] [address] Jan, Anxiety F41.9 and Depressive disorder, not elsewhere classified F32.9 [facility] [address], [place] [address] Dec, Dementia without behavioral disturbance, unspecified dementia type F03.90 and Reactive depression F32.9 [address] [facility] [place] [address] Dec, [facility] [facility] [id number] [place] [address] Dec, [address] [facility] [id number] [place] [address] Nov, Depressive disorder, not elsewhere classified F32.9 and Anxiety F41.9 [address] [place] [place] [address] Nov, Coronary artery disease involving [place] coronary artery, angina presence unspecified, unspecified whether [place] or transplanted heart I25.10 ; Fibromyalgia M79.7 ; Arthritis M19.90 ; Anxiety F41.9 ; Hyperlipidemia, unspecified hyperlipidemia type E78.5 and Barretts esophagus with dysplasia K22.719 [address], [place] [address] Nov, IMMUNIZATIONS No Known Immunizations SOCIAL HISTORY Never Assessed REASON FOR VISIT concern PLAN OF CARE VITAL SIGNS MEDICATIONS Unknown [...]
--- OUTSIDE RECORDS SUMMARY | 2018-12-14 12:07 | XMS REPORT ---
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 Role Phone DELMI BYRNES Unavailable PROBLEMS Type Condition ICD9-CM Code YGH69-SL Code Onset Dates Condition Status SNOMED Code Problem Essential hypertension I10 Active 19584962 Problem Chronic depression F32.9 Active 093358071 Problem Lumbar radiculopathy M54.16 Active 023933352 Problem Onychomycosis B35.1 Active 213136228 Problem Stage 3 chronic kidney disease N18.3 Active 815922579 Problem Severe episode of recurrent major depressive disorder, without psychotic features F33.2 Active 85242413 Problem Chronic bronchitis, unspecified chronic bronchitis type J42 Active 39580141 Problem Pseudobulbar affect F48.2 Active 85081610 Problem Intractable cyclical vomiting with nausea G43.A1 Active 09103717 Problem Coronary artery disease involving twenty-nine palms coronary artery, angina presence unspecified, unspecified whether twenty-nine palms or transplanted heart I25.10 Active 5442483097894 Problem Hyperlipidemia, unspecified hyperlipidemia type E78.5 Active 81998109 Problem Fibromyalgia M79.7 Active 725981824 Problem Anxiety F41.9 Active 08006845 Problem Barretts esophagus with dysplasia K22.719 Active [id number] Problem Chronic kidney disease, stage 2 (mild) N18.2 Active 719346352 Problem Arthritis M19.90 Active 2922550 Problem Prediabetes R73.03 Active 493296921 ALLERGIES No Information ENCOUNTERS Encounter Location Date Diagnosis [facility] [id number], [place] [address] Oct, [facility] [address], [place] [address] 14 Oct, 2017 Arthritis M19.90 [facility] [id number], [place] [address] Oct, Anxiety F41.9 and Arthritis M19.90 [id number] [place] [address] Oct, Essential hypertension I10 ; Barretts esophagus with dysplasia K22.719 ; Pseudobulbar affect F48.2 ; Arthritis M19.90 ; Onychomycosis B35.1 and Stage 3 chronic kidney disease N18.3 [id number] [place] [address] September, Arthritis M19.90 [address] [place] [id number] [place] [address] September, [place] [id number] [place] [address] Aug, Essential hypertension I10 ; Lumbar radiculopathy M54.16 ; Anxiety F41.9 ; Intractable cyclical vomiting with nausea G43.A1 and Pseudobulbar affect F48.2 [id number] [place] [address] Aug, Arthritis M19.90 [address] [place] [id number] [place] [address] Jul, Intractable cyclical vomiting with nausea G43.A1 and Anxiety F41.9 [address] [place] [address] Jul, [address] [id number] [place] [address] Jul, Anxiety F41.9 and Arthritis M19.90 [id number] [place] [address] Jul, Severe episode of recurrent major depressive disorder, without psychotic features F33.2 and Neurocognitive disorder R41.9 [address] [place] [address] Jun, [place] [id number] [place] [address] 20 Jun, 2017 Lumbar radiculopathy M54.16 ; Essential hypertension I10 ; Anxiety F41.9 and Chronic bronchitis, unspecified chronic bronchitis type J42 [facility] [id number] [place] [address] 15 Jun, 2017 Anxiety F41.9 [facility] [address] [address] 14 Jun, 2017 [facility] [address] [address] 12 Jun, 2017 Arthritis M19.90 [address] [address] 05 Jun, 2017 [address] [address] Jun, [facility] [address] [address] May, [facility] [address] [address] May, [address] [address] [address] May, HPV (human papilloma virus) infection B97.7 [address] [address] [address] May, Anxiety F41.9 and Arthritis M19.90 [facility] [id number] [place] [address] Apr, [address] [place] [address] [address] Apr, [facility] [id number] [place] [address] 13 Apr, 2017 Colon cancer screening Z12.11 [facility] [address] [place] [address] Apr, [address] [address] [address] Apr, [address] [address] Apr, Arthritis M19.90 and Anxiety F41.[address] [address] 30 Mar, 2017 Well woman exam Z01.419 and Colon cancer screening Z12.[address] [address] 14 Mar, 2017 [address] [address] [address] Mar, Anxiety F41.9 and Arthritis M19.[address] [address] Feb, Encounter for immunization Z23 ; Essential hypertension I10 ; Lumbar radiculopathy M54.16 ; Chronic depression F32.9 ; Routine adult health maintenance Z00.00 and Chronic bronchitis, unspecified chronic bronchitis type J42 [address] [address] Feb, Arthritis M19.90 and Anxiety F41.[address] [address] Jan, Arthritis M19.90 and Anxiety F41.[address] [address] Dec, Arthritis M19.90 and Anxiety F41.[address] [address] Dec, Lumbar radiculopathy M54.16 and Chronic depression F32.[address] [address] Dec, [facility] [address] [place] [address] Dec, Foot drop, right foot M21.371 ; Coronary artery disease involving twenty-nine palms coronary artery, angina presence unspecified, unspecified whether twenty-nine palms or transplanted heart I25.10 and Depressive disorder, not elsewhere classified F32.9 [facility] [id number] [place] [address] Nov, Arthritis M19.90 [facility] [id number] [place] [address] Nov, [address] [place] [address] Oct, [address] [place] [id number] [place] [address] Oct, Essential hypertension I10 ; Anxiety F41.9 ; Arthritis M19.90 and Fibromyalgia M79.7 [address] [place] [id number] [place] [address] September, Anxiety F41.9 [address] [place] [id number] [place] [address] September, Arthritis M19.90 [address] [id number] [place] [address] Aug, Dental examination Z01.20 [address] [place] [id number] [place] [address] Aug, Anxiety F41.9 [facility] [id number] [place] [address] Aug, [address] [place] [id number] [place] [address] Aug, Anxiety F41.9 [address] [id number] [place] [address] Aug, Essential hypertension I10 and Arthritis M19.90 [address], [place] [address] Aug, Depressive disorder, not elsewhere classified F32.9 [facility] [id number] [place] [address] Jul, Local infection of the skin and subcutaneous tissue, unspecified L08.9 and Abrasion, unspecified lesser toe(s), sequela S90.416S [place] [id number] [place] [address] Jul, Prediabetes R73.03 and Essential hypertension I10 [address] [id number] [place] [address] Jul, Abnormal glucose level R73.09 [facility] [id number] [place] [id number] Jul, [place] [id number] [place] [address] Jul, Abnormal glucose level R73.09 [address] [place] [address] Jul, Fibromyalgia M79.7 ; Arthritis M19.90 ; Chronic kidney disease, stage 2 (mild) N18.2 and Depressive disorder, not elsewhere classified F32.9 [address] [place] [address] Jul, [address] [place] [address] [place] [address] Jul, [address] [place] [place] [address] Jul, [place] [id number] [place] [address] Jul, Arthritis M19.90 ; Depressive disorder, not elsewhere classified F32.9 ; Fibromyalgia M79.7 and Constipation, unspecified constipation type K59.00 [address] [id number] [place] [address] 15 Jun, 2016 Anxiety F41.9 [facility] [address], [place] [address] 14 Jun, 2016 Anxiety F41.9 and Fibromyalgia M79.7 [facility] [address], [place] [address] 11 Jun, 2016 [facility] [id number] [place] [address] 10 Jun, 2016 Arthritis M19.90 ; Depressive disorder, not elsewhere classified F32.9 ; Barretts esophagus with dysplasia K22.719 ; Edema, unspecified type R60.9 and Fibromyalgia M79.7 [address], [place] [address] 06 Jun, 2016 [address] [place] [address] [place] [address] May, [facility] [address] [place] [address] May, Dyspnea on exertion R06.09 ; Coronary artery disease involving twenty-nine palms coronary artery, angina presence unspecified, unspecified whether twenty-nine palms or transplanted heart I25.10 and Arthritis M19.90 [facility] [address], [place] [address] May, [facility] [address], [place] [address] Apr, Arthritis M19.90 [facility] [address], [place] [address] Apr, Arthritis M19.90 and Acute cystitis without hematuria N30.00 [facility] [place] [address] [facility] [id number] [place] [id number] Apr, [facility] [address], [place] [address] Apr, Fibromyalgia M79.7 [facility] [address], [place] [address] Apr, Arthritis M19.90 and Onychomycosis B35.1 [facility] [id number] [place] [address] Mar, [facility] [address], [place] [address] Mar, Acute gout involving toe of right foot, unspecified cause M10.9 [facility] [address], [place] [address] Mar, [facility] [id number] [place] [address] Feb, [facility] [id number] [place] [address] Feb, [facility] [id number] [place] [address] Feb, Arthritis M19.90 [facility] [address] [place] [address] 23 Jan, 2016 [facility] [id number] [place] [address] 19 Jan, 2016 [facility] [address], [place] [address] 16 Jan, 2016 [facility] [address] [place] [address] 16 Jan, 2016 [facility] [address], [place] [address] 12 Jan, 2016 Coronary artery disease involving twenty-nine palms coronary artery, angina presence unspecified, unspecified whether twenty-nine palms or transplanted heart I25.10 ; Arthritis M19.90 and Edema, unspecified type R60.9 [facility] [address], [place] [address] 07 Jan, 2016 [facility] [id number] [place] [address] Jan, [address], [place] [address] Jan, Anxiety F41.9 and Depressive disorder, not elsewhere classified F32.9 [address], [place] [address] Dec, Dementia without behavioral disturbance, unspecified dementia type F03.90 and Reactive depression F32.9 [address] [place] [id number] [place] [address] Dec, [place] [id number] [place] [address] Dec, [place] [id number] [place] [address] Nov, Depressive disorder, not elsewhere classified F32.9 and Anxiety F41.9 [place] [id number] [place] [address] Nov, Coronary artery disease involving twenty-nine palms coronary artery, angina presence unspecified, unspecified whether twenty-nine palms or transplanted heart I25.10 ; Fibromyalgia M79.7 ; Arthritis M19.90 ; Anxiety F41.9 ; Hyperlipidemia, unspecified hyperlipidemia type E78.5 and Barretts esophagus with dysplasia K22.719 [address] [place] [address], [place] [address] Nov, IMMUNIZATIONS No Known Immunizations SOCIAL HISTORY Never Assessed REASON FOR VISIT PLAN OF CARE VITAL SIGNS MEDICATIONS Medication Instructions Dosage Frequency Start Date End Date Duration Status Oxycodone HCl 5 mg Orally every 6 hrs, prn pain 1 tablet Jun, 28 days Active RESULTS No Results PROCEDURES [...]
--- OUTSIDE RECORDS SUMMARY | 2018-12-14 12:08 | XMS REPORT ---
Author Author NATALIE SHANIQUA [facility] Address [address] [place] [address] Care Team Providers Care Plant Electrician Name Role Phone SHANIQUA ESTRADA Unavailable PROBLEMS Type Condition ICD9-CM Code [id number] Code Onset Dates Condition Status SNOMED Code Problem Essential hypertension I10 Active 75548523 Problem Chronic depression F32.9 Active 492904727 Problem Lumbar radiculopathy M54.16 Active 319836067 Problem Onychomycosis B35.1 Active 662469840 Problem Stage 3 chronic kidney disease N18.3 Active 374796805 Problem Severe episode of recurrent major depressive disorder, without psychotic features F33.2 Active 45047171 Problem Chronic bronchitis, unspecified chronic bronchitis type J42 Active 40944759 Problem Pseudobulbar affect F48.2 Active 79587454 Problem Intractable cyclical vomiting with nausea G43.A1 Active 60765517 Problem Coronary artery disease involving [place] coronary artery, angina presence unspecified, unspecified whether [place] or transplanted heart I25.10 Active 8623936658112 Problem Hyperlipidemia, unspecified hyperlipidemia type E78.5 Active 27762730 Problem Fibromyalgia M79.7 Active 819733533 Problem Anxiety F41.9 Active 78209732 Problem Barretts esophagus with dysplasia K22.719 Active 9770146169996620 Problem Chronic kidney disease, stage 2 (mild) N18.2 Active 618945432 Problem Arthritis M19.90 Active 8755903 Problem Prediabetes R73.03 Active 197562750 ALLERGIES Substance Reaction Event Type Date Status Milk Unknown Non Drug Allergy May, Active Eggs Unknown Non Drug Allergy May, Active ENCOUNTERS Encounter Location Date Diagnosis [facility] [address] [facility] [id number] [address] Oct, [facility] [address] [facility] [id number] [address] Oct, Arthritis M19.90 [facility] [id number] [place] [address] Oct, Anxiety F41.9 and Arthritis M19.90 [facility] [id number] [place] [address] Oct, Essential hypertension I10 ; Barretts esophagus with dysplasia K22.719 ; Pseudobulbar affect F48.2 ; Arthritis M19.90 ; Onychomycosis B35.1 and Stage 3 chronic kidney disease N18.3 [facility] [id number] [place] [address] September, Arthritis M19.90 [facility] [id number] [place] [address] September, [facility] [id number] [place] [address] Aug, Essential hypertension I10 ; Lumbar radiculopathy M54.16 ; Anxiety F41.9 ; Intractable cyclical vomiting with nausea G43.A1 and Pseudobulbar affect F48.2 [facility] [id number] [place] [address] Aug, Arthritis M19.90 [facility] [id number] [place] [address] Jul, Intractable cyclical vomiting with nausea G43.A1 and Anxiety F41.9 [facility] [id number] [place] [address] Jul, [facility] [id number] [place] [address] Jul, Anxiety F41.9 and Arthritis M19.90 [facility] [id number] [place] [address] Jul, Severe episode of recurrent major depressive disorder, without psychotic features F33.2 and Neurocognitive disorder R41.9 [facility] [id number] [place] [address] 27 Jun, 2017 [facility] [id number] [place] [address] Jun, Lumbar radiculopathy M54.16 ; Essential hypertension I10 ; Anxiety F41.9 and Chronic bronchitis, unspecified chronic bronchitis type J42 [facility] [id number] [place] [address] 15 Jun, 2017 Anxiety F41.9 [facility] [address] [address] 14 Jun, 2017 [facility] [address] [address] Jun, Arthritis M19.90 [facility] [id number] [place] [address] Jun, [facility] [id number] [place] [address] Jun, [facility] [id number] [place] [address] May, [facility] [id number] [place] [address] May, [facility] [id number] [place] [address] May, HPV (human papilloma virus) infection B97.7 [facility] [id number] [place] [address] May, Anxiety F41.9 and Arthritis M19.90 [facility] [id number] [place] [address] Apr, [facility] [id number] [place] [address] Apr, [facility] [id number] [place] [address] Apr, Colon cancer screening Z12.11 [facility] [address] [address] 11 Apr, 2017 [facility] [id number] [place] [address] 11 Apr, 2017 [facility] [id number] [place] [address] 07 Apr, 2017 Arthritis M19.90 and Anxiety F41.9 [facility] [id number] [place] [address] 30 Mar, 2017 Well woman exam Z01.419 and Colon cancer screening Z12.11 [facility] [id number] [place] [address] 14 Mar, 2017 [facility] [id number] [place] [address] 13 Mar, 2017 Anxiety F41.9 and Arthritis M19.90 [facility] [id number] [place] [address] 19 Feb, 2017 Encounter for immunization Z23 ; Essential hypertension I10 ; Lumbar radiculopathy M54.16 ; Chronic depression F32.9 ; Routine adult health maintenance Z00.00 and Chronic bronchitis, unspecified chronic bronchitis type J42 [facility] [address] [place] [address] 16 Feb, 2017 Arthritis M19.90 and Anxiety F41.9 [facility] [id number] [place] [address] 18 Jan, 2017 Arthritis M19.90 and Anxiety F41.9 [facility] [id number] [place] [address] Dec, Arthritis M19.90 and Anxiety F41.9 [facility] [id number] [place] [address] 17 Dec, 2016 Lumbar radiculopathy M54.16 and Chronic depression F32.9 [facility] [id number] [place] [address] Dec, [facility] [id number] [place] [address] Dec, Foot drop, right foot M21.371 ; Coronary artery disease involving [place] coronary artery, angina presence unspecified, unspecified whether [place] or transplanted heart I25.10 and Depressive disorder, not elsewhere classified F32.9 [facility] [id number] [place] [address] Nov, Arthritis M19.90 [facility] [id number] [place] [address] Nov, [facility] [address] [address] Oct, [facility] [id number] [place] [address] Oct, Essential hypertension I10 ; Anxiety F41.9 ; Arthritis M19.90 and Fibromyalgia M79.7 [facility] [id number] [place] [address] September, Anxiety F41.9 [facility] [id number] [place] [address] September, Arthritis M19.90 [facility] [id number] [place] [address] Aug, Dental examination Z01.20 [facility] [id number] [place] [address] Aug, Anxiety F41.9 [facility] [id number] [place] [address] Aug, [facility] [id number] [place] [address] Aug, Anxiety F41.9 [facility] [address] [address] Aug, Essential hypertension I10 and Arthritis M19.90 [facility] [address] [place] [address] Aug, Depressive disorder, not elsewhere classified F32.9 [facility] [address] [place] [address] 29 Jul, 2016 Abrasion, unspecified lesser toe(s), sequela S90.416S and Local infection of the skin and subcutaneous tissue, unspecified L08.9 [facility] [address] [place] [address] Jul, Prediabetes R73.03 and Essential hypertension I10 [facility] [address] [place] [address] Jul, Abnormal glucose level R73.09 [facility] [id number] [place] [id number] Jul, [facility] [address] [place] [address] Jul, Abnormal glucose level R73.09 [facility] [id number] [place] [address] 16 Jul, 2016 Fibromyalgia M79.7 ; Arthritis M19.90 ; Chronic kidney disease, stage 2 (mild) N18.2 and Depressive disorder, not elsewhere classified F32.9 [facility] [address] [address] 14 Jul, 2016 [facility] [address] [place] [address] Jul, [facility] [id number] [place] [address] Jul, [facility] [address] [place] [address] Jul, Arthritis M19.90 ; Depressive disorder, not elsewhere classified F32.9 ; Fibromyalgia M79.7 and Constipation, unspecified constipation type K59.00 [facility] [address] [address] 15 Jun, 2016 Anxiety F41.9 [facility] [address] [place] [address] 14 Jun, 2016 Anxiety F41.9 and Fibromyalgia M79.7 [facility] [id number] [place] [address] 11 Jun, 2016 [facility] [address] [place] [address] 10 Jun, 2016 Arthritis M19.90 ; Depressive disorder, not elsewhere classified F32.9 ; Barretts esophagus with dysplasia K22.719 ; Edema, unspecified type R60.9 and Fibromyalgia M79.7 [facility] [address] [address] 06 Jun, 2016 [facility] [address] [address] May, [facility] [address] [place] [address] May, Dyspnea on exertion R06.09 ; Coronary artery disease involving [place] coronary artery, angina presence unspecified, unspecified whether [place] or transplanted heart I25.10 and Arthritis M19.90 [facility] [address] [address] May, [facility] [address] [address] Apr, Arthritis M19.90 [facility] [address] [address] Apr, Arthritis M19.90 and Acute cystitis without hematuria N30.00 [facility] [address] [facility] [id number] [place] [id number] Apr, [facility] [address] [place] [address] Apr, Fibromyalgia M79.7 [facility] [address] [place] [address] Apr, Arthritis M19.90 and Onychomycosis B35.1 [facility] [id number] [place] [address] Mar, [facility] [id number] [place] [address] Mar, Acute gout involving toe of right foot, unspecified cause M10.9 [facility] [id number] [place] [address] Mar, [facility] [id number] [place] [address] Feb, [facility] [id number] [place] [address] Feb, [facility] [id number] [place] [address] Feb, Arthritis M19.90 [facility] [id number] [place] [address] 23 Jan, 2016 [facility] [id number] [place] [address] Jan, [facility] [id number] [place] [address] 16 Jan, 2016 [facility] [id number] [place] [address] 16 Jan, 2016 [facility] [address] [place] [address] 12 Jan, 2016 Coronary artery disease involving [place] coronary artery, angina presence unspecified, unspecified whether [place] or transplanted heart I25.10 ; Arthritis M19.90 and Edema, unspecified type R60.9 [facility] [id number] [place] [address] Jan, [facility] [address] [address] Jan, [facility] [id number] [place] [address] Jan, Anxiety F41.9 and Depressive disorder, not elsewhere classified F32.9 [facility] [id number] [place] [address] Dec, Dementia without behavioral disturbance, unspecified dementia type F03.90 and Reactive depression F32.9 [facility] [id number] [place] [address] Dec, [facility] [id number] [place] [address] Dec, [facility] [id number] [place] [address] Nov, Depressive disorder, not elsewhere classified F32.9 and Anxiety F41.9 [facility] [id number] [place] [address] Nov, Coronary artery disease involving [place] coronary artery, angina presence unspecified, unspecified whether [place] or transplanted heart I25.10 ; Fibromyalgia M79.7 ; Arthritis M19.90 ; Anxiety F41.9 ; Hyperlipidemia, unspecified hyperlipidemia type E78.5 and Barretts esophagus with dysplasia K22.719 [facility] [id number] [place] [address] Nov, IMMUNIZATIONS No Known Immunizations SOCIAL HISTORY Never Assessed REASON FOR VISIT HPV positive--[facility] PLAN OF CARE Activity Details Follow Up prn Reason: Future/Pending Procedure COLP W/ BX & ECC VITAL SIGNS Height 67 in 2017-05-24 Weight 213 lbs 2017-05-24 Temperature 97.6 degrees Fahrenheit 2017-05-24 Heart Rate 78 bpm 2017-05-24 Respiratory Rate 20 2017-05-24 BMI 33.36 kg/m2 2017-05-24 Blood pressure systolic 122 mmHg 2017-05-24 Blood pressure diastolic 82 mmHg 2017-05-24 MEDICATIONS Medication Instructions Dosage Frequency Start Date End Date Duration Status Duloxetine HCl 30 MG Orally 3 times a day 1 capsule 8h 30 days Active Metoprolol Tartrate 50 mg Orally Twice a day 1 tablet with food 12h 30 Active Vitamin D3 1000 TAKE 2 CAPSULES BY MOUTH DAILY 30 Active Colace 100 mg Orally Once a day 1 capsule as needed 24h 30 Active Lisinopril 10 mg Orally Once a day 1 tablet 24h 30 Active Ranitidine HCl 150 MG Orally twice a day 1 tablet at bedtime 12h Active Premarin 30GM Vaginal Insert 1 Gram every night at bedtime twice a week Active Exelon 4.6 MG/24HR Transdermal Once a day 1 patch to skin 24h Active Atorvastatin Calcium 80 MG Orally at bedtime 1 tablet Active Folic Acid 1 MG Orally twice a day 1 tablet 12h Active Adjust Bath/Shower Seat/Back - use in shower Jun, Active Risperdal 1 MG Orally twice a day 1 tablet 12h 30 days Active Aspirin 325 MG Orally Once a day 1 tablet 24h 30 Active ProAir HFA 108 (90 Base) MCG/ACT Inhalation every 6 hrs 2 puffs as needed 6h Active Multivitamin Adult - Orally Once a day 1 tablet 24h 30 Active Trazodone HCl 100 MG Orally Once a day 1 tablet at bedtime as needed 24h 17 Dec, 2016 30 day(s) Active Nitrofurantoin Monohyd Macro 100 MG Orally daily with Supper 1 capsule with food Active Alprazolam 1 MG Orally Once a day, hs 1 tablet 28 days Active Risperidone 1 TAKE 1 TABLET BY MOUTH TWICE DAILY 30 Active Pantoprazole Sodium 40 mg Orally Once a day 1 tablet 24h Active Rivastigmine 4.6 APPLY 1 PATCH TO SKIN ONCE A DAY 30 Active Trazodone HCl 50 mg Orally Once a day 1 tablet at bedtime as needed 24h 30 Active Pantoprazole Sodium 40 mg Orally Once a day 1 tablet 24h Active Cetirizine HCl 10 TAKE 1 TABLET BY MOUTH DAILY 30 Active Clobetasol Propionate 0.05 SHAMPOO HAIR/SCALP, LEAVE ON 15 MINUTES AND RINSE WELL.. USE DAILY FOR 4 WEEKS. Active Oxycodone HCl 5 mg Orally every 6 hrs, prn pain 1 tablet May, 28 days Active Diclofenac Sodium 75 Orally bid 1 tablet with food or milk 12h 30 Active Cholecalciferol 1000 UNIT Orally Once a day 2 capsules 24h 30 days Active Myrbetriq 50 mg Orally Once a day 1 tablet 24h Active RESULTS No Results PROCEDURES Procedure Date Ordered Result Body Site BX/CURETT OF CERVIX W/SCOPE May 24, 2017 INSTRUCTIONS MEDICATIONS ADMINISTERED No Known Medications [...]
--- OUTSIDE RECORDS SUMMARY | 2018-12-14 12:11 | XMS REPORT ---
Author Author Malik Watkins Organization Unknown Address [address], [place] [id number] Phone Care Team Providers Care Exhaust Emissions Automotive Technician Name Role Phone Dimitris Stephens PP Unavailable Unavailable Reason for Referral l knee pain Chief Complaint HCPA Text Box CC: HCPA ortho cc: Reason for Visit: Left knee pain. History of Present Illness HCPA Ortho HPI: She describes the pain as burning and sharp. Patient denies n umbness. She rates the severity of the pain at a 8 on a pain scale of 1-10. This occurs when the patient is sitting, sleeping, standing, using stairs and walkin g. The patient states that this injury is not accident related. HCPA Text Box HP I: Problems * Normal Routine History And Physical Adult [...] (Active) * Pleural Effusion (511.9); (Active) * Pneumonitis (486); (Active) * Pulmonary Edema (514); (Active) * Sudden Redness Of The Skin (Flushing) (782.62); (Active) * Esophageal Stricture (530.3); (Active) * [...] Legs (Active) * Insomnia (780.52); (Active) * Anxiety (Symptom) (300.00); (Active) * Depression (311); (Active) * Fibromyalgia (729.1); (Active) * Idiopathic Peripheral Neuropathy (356.9); (Active) * Obesity (278.00); (Active) * Joint Pain In Both Hips (Active) * Lower Back Pain (724.2); (Active) * Cardiomyopathy (425.4); (Active) * PTCA (Active) * Nicotine Dependence [...] (Active) * Urinary Tract Infection (599.0); (Active) * Peripheral Neuropathy (356.9); (Active) * Peripheral Vascular Disease (443.9); (Active) * Onychomycosis (110.1); (Active) * Asymptomatic Coronary Arteriosclerosis (414.00); (Active) * Congestive Heart Failure (428.0); (Active) * Coronary Artery Disease (414.00); (Active) * Hyperlipidemia (272.4); (Active) * Hypertension (401.9); (Active) * Hypotension (458.9); (Active) Medication * Cymbalta 60 MG Oral Capsule Delayed Release Particles; TAKE 2 CAPSULES BY MOUTH DAILY; Start Date: 07/13/2009; End Date: (Active) * Singulair 10 MG Oral Tablet; take one tablet by mouth every day; Start Date: 04/06/2009; End Date: (Active) * Aspirin 81 MG Oral Tablet; TAKE 1 TABLET DAILY.; Start Date: 01/04/2008 (Active) * Atenolol 50 MG Oral Tablet; Take One Tablet By Mouth Twice Daily; Start Date: 01/04/2008; End Date: (Active) * ProAir HFA 108 (90 Base) MCG/ACT Inhalation Aerosol Solution; TAKE 2 PUFFS BY MOUTH EVERY 4 HOURS NEEDED; Start Date: 05/04/2009; End Date: (Active) * Clopidogrel Bisulfate 75 MG Oral Tablet; take one tablet by mouth every day; Start Date: 11/03/2008; End Date: (Active) * Cetirizine HCl 10 MG Oral Tablet; take one tablet by mouth every day; Start Date: 04/06/2009; End Date: (Active) * Nasacort AQ 55 MCG/ACT Nasal Aerosol Solution; 1 SPRAY EACH NOSTRIL EVERY DAY; Start Date: 04/06/2009 (Active) * Zetia 10 MG Oral Tablet; take one tablet by mouth every day; Start Date: 03/30/2010; End Date: (Active) * Lyrica 150 MG Oral Capsule; TAKE ONE CAPSULE BY MOUTH THREE TIMES DAILY; Start Date: 09/18/2009 (Active) * Loratadine 10 MG Oral Tablet; take one tablet by mouth every day; Start Date: 07/13/2009; End Date: (Active) * Furosemide 80 MG Oral Tablet; take one tablet by mouth every day; Start Date: 02/16/2010; End Date: (Active) * Omeprazole 20 MG Oral Capsule Delayed Release; 1 tab bid; Start Date: 02/11/2011 (Active) * Lisinopril 10 MG Oral Tablet; take 1 tablet by mouth every day; Start Date: 02/11/2011; End Date: (Active) * Imodium A-D 2 MG Oral Tablet; Start Date: 07/26/2012 (Active) * Ranitidine HCl 300 MG Oral Tablet; Take 1 tablet by mouth TID; Start Date: 01/18/2011; End Date: (Active) * Chantix Continuing Month Babak 1 MG Oral Tablet; Take as directed; Start Date: 01/10/2012; End Date: (Active) * Triamcinolone Acetonide 55 MCG/ACT Nasal Inhaler; USE ONE SPRAY IN EACH NOSTRIL EVERY DAY; Start Date: 02/02/2011; End Date: (Active) * Potassium Chloride Misti ER 10 MEQ Oral Tablet Extended Release; take 4 tablets by mouth twice daily; Start Date: 09/20/2010; End Date: (Active) * Hydrocodone-Acetaminophen 10-500 MG Oral Tablet; TAKE 1 TABLET BY MOUTH EVERY 4-6 HOURS NEEDED . DO NOT EXCEED 5 TABLETS PER DAY.; Start Date: 01/28/2011 (Active) * Zolpidem Tartrate 10 MG Oral Tablet; TAKE 1 TABLET BY MOUTH EVERY NIGHT AT BEDTIME NEEDED; Start Date: 07/30/2012 (Active) * ALPRAZolam 0.5 MG Oral Tablet; TAKE 1 TABLET BY MOUTH FOUR TIMES DAILY NEEDED; Start Date: 09/30/2011 (Active) * Promethazine-Codeine 6.25-10 MG/5ML Oral Syrup; TAKE 10ML BY MOUTH EVERY 4 HOURS NEEDED FOR COUGH; Start Date: 10/17/2011 (Active) * Benzonatate 200 MG Oral Capsule; TAKE ONE CAPSULE BY MOUTH EVERY 4-6 HOURS NEEDED FOR COUGH; Start Date: 09/30/2011; End Date: (Active) * Terbinafine HCl 250 MG Oral Tablet; take one tablet by mouth every day; Start Date: 10/04/2010; End Date: (Active) * Atorvastatin Calcium 80 MG Oral Tablet; TAKE 1 TABLET BY MOUTH EVERY NIGHT AT BEDTIME; Start Date: 04/28/2011; End Date: (Active) * Gabapentin 300 MG Oral Capsule; TAKE ONE CAPSULE BY MOUTH TWICE DAILY; Start Date: 06/01/2012; End Date: (Active) Allergies and Adverse Reactions [...] Status Gastroscopy With Biopsy - - Active Hip Replacement - - Active Gallbladder Surgery - - Active Tubal Ligation - - Active Heart Surgery - - Active Upr GI Endosc W/ Balloon Dilation Of Esoph (Less Than 30 Mm) 01/18/2011 - Active Upr GI Endosc W/ Balloon Dilation Of Esoph (Less Than 30 Mm) 06/25/2012 - Active Immunization * Influenza - Administered on: 01/26/2009 * Pneumo (Prevnar) - Administered on: 03/06/2009 * Influenza A (H1N1) Monoval Vac Intramuscular Suspension - Administered on: 03/14/2009 * Influenza (Lot #: [id number]) - Administered on: 02/18/2010 * Influenza - [...] Alcohol (Active) * Tobacco Use (305.1); (Active) Results Date Description Test Name Value Reference Interpretation Status 29 Mar 2013 08:25 AM CBC w/ Auto Diff 7150 MONOS 0.4 K/uL 0.0-0.9 Active %NEUTRO 53.6 % 37.0-80.0 Active LYMPHS 2.3 K/uL 0.6-3.4 Active %EOS 5.7 % 0.0-7.0 Active %DUNG 3.6 % 0.0-5.0 Active EOS 0.4 K/uL 0.0-0.7 Active RBC 4.98 mil/uL 3.60-5.00 Active WBC 7.5 K/uL 4.5-11.0 Active MCV 89.2 fL 80.0-99.0 Active MCH 29.7 pg 27.3-32.5 Active HCT 44.4 % 36.0-48.0 Active HGB 14.8 g/dL 12.0-16.0 Active %MONO 5.6 % 0.0-12.0 Active %LYMPHS 30.7 % 13.0-50.0 Active BASO 0.1 K/uL 0.0-0.2 Active %BASO 0.8 % 0.0-2.5 Active RDW 15.1 % 11.6-14.8 H Active PLATELETS 362 K/uL 150-400 Active MCHC 33.2 % 32.0-36.0 Active MPV 6.6 fL 6.0-11.0 Active NEUTRO 4.0 K/uL 2.0-6.9 Active Treatment Plan * XC OPTIRAY 320 100ML 12/14/2007 Routine * Vital Signs 05/06/2008 Routine * XC OPTIRAY 320 100ML 05/09/2008 Routine * XC OPTIRAY 320 125ML 04/22/2008 Routine * ORTHO ANKLE RIGHT 07/23/2008 Routine * ORTHO ANKLE RIGHT 08/06/2008 Routine * ORTHO KNEE RIGHT (3 VIEWS ONLY) 09/08/2008 Routine * ORTHO KNEE RIGHT (3 VIEWS ONLY) 05/11/2009 Routine * XC CT RECON FOR NON CTA EXAMS 05/20/2009 Routine * ORTHO HIP BILATERAL (1 VIEW ONLY) 07/23/2009 Routine * XC OPTIRAY 320 100ML 01/21/2010 Routine * MISCELLANEOUS REF TEST 9900 01/25/2010 Routine * XC OPTIRAY 320 100ML 02/16/2010 Routine * CP Echo 03/01/2010 Routine * ORTHO KNEE LEFT 04/19/2011 Routine * ORTHO FOOT RIGHT 05/26/2011 Routine * XC OPTIRAY 320 100ML 10/14/2011 Routine * LIPID PROFILE 1184 03/25/2013 Routine * Comprehensive Metabolic Panel 1212 03/25/2013 Routine Advance Directives * No Advance Directives available. Encounters * Appointment 03/29/2013 * BHUPINDER , Provider: Paolo Timmons, Status: Rakesh , Time: 11:15 AM 03/29/2013 * RTNPT , Provider: Dimitris Stephens, Status: Rakesh , Time: 3:15 PM 03/29/2013 * ENDO , Provider: Merritt Echavarria, Status: Rakesh , Time: 10:00 AM 04/10/2013 * NEWMEDCD , Provider: Roderick Cintron, Status: Pen , Time: 8:00 AM 04/15/2013 * RTNPT , Provider: Sydnee Stephens, Status: Can , Time: 3:15 PM 08/07/2013 * RTNPT , Provider: Sydnee Stephens, Status: Rakesh , Time: 3:15 PM 08/08/2013
--- OUTSIDE RECORDS SUMMARY | 2018-12-14 12:12 | XMS REPORT | Referral Summary ---
Author Organization Unknown Address Unknown Phone Unavailable Care Team Providers Care Mining Detail Draftsperson Name Role Phone Angelo Shanks PCP Encounter [facility] [id number] Date(s): 06/23/14 - 06/23/14 [facility]oped[facility] [address] [place], [place] [address] Discharge Diagnosis: Neurogenic claudication Discharge Disposition: Home or Self Care Attending Physician: Ever Camp MD Admitting Physician: Ever Camp MD Referring Physician: Angelo Shanks MD Vital Signs Most recent to 1 oldest [Reference Range]: Temperature Oral 36 degC [35.8-37.3 degC] (06/23/14 9:14 AM) Apical Heart Rate 60 bpm [60-100 bpm] (06/23/14 9:14 AM) Respiratory Rate 16 br/min [14-20 br/min] (06/23/14 9:14 AM) Blood Pressure 126/78 mmHg [90-140/60-90 mmHg] (06/23/14 9:14 AM) Problem List Condition Effective Dates Status Health Status Informant Depression(Confirmed Active ) HTN Active (hypertension)(Confi rmed) Myocardial Active infarction(Confirmed ) Tobacco Active patient user(Confirmed) Allergies, Adverse Reactions, Alerts No Known Medication Allergies Medications atenolol Oral, Daily, 0 Refill(s) Start Date: 06/23/14 Status: Ordered Lyrica Oral, 0 Refill(s) Start Date: 06/23/14 Status: Ordered OxyCONTIN Oral, q12hr, 0 Refill(s) Start Date: 06/23/14 Status: Ordered Results No data available for this section Immunizations No data available for this section Procedures Procedure Date Related Diagnosis Body Site Cholecystectomy History of total left hip replacement Total replacement of right hip joint Social History Social History Type Response Smoking Status Former smoker; Type: Cigarettes Assessment and Plan Extracted from: Title: Office Visit Note Author: Trever Nunes MD Date: 06/23/14 Assessment/Plan 58 y/o F with neurogenic claudication -Symptoms consistent with neurogenic claudication -Recommend referral to spine surgeon for further workup with MRI and treatment as indicated -May have central canal stenosis as well with relief of her pain while leaning over shopping cart -Follow up in orthopaedic specialty clinic PRN I discussed the patient with the preceptor.
--- OUTSIDE RECORDS SUMMARY | 2018-12-14 12:12 | XMS REPORT | Summary of Care ---
Author Author Virginia Dougherty APRN [facility] Unknown Address [address], [place] [id number] Phone Unavailable Care Team Providers Care Mailroom Manager Name Role Phone Dimitris Alejandra, Tarik [...] Shanks M.D.* Started 04-May-2009 Active8.5 GM Inhaler Lisinopril 10 MG Oral Tablet take 1 tablet by mouth every day * Quantity: 30 Refills: 11 Angelo Randhawa M.D.* Started 11-Feb-2011 ActiveGabapentin 300 MG Oral Capsule TAKE ONE CAPSULE BY MOUTH TWICE DAILY * Quantity: 60 Refills: 0 Angelo Shanks M.D.* Started 01-Jun-2012 ActiveFurosemide 80 MG Oral Tablet take one tablet by mouth every day * Quantity: 30 Refills: 5 Angelo Shanks M.D.* Started 16-Feb-2010 ActiveTriamcinolone Acetonide 55 MCG/ACT INHA USE ONE SPRAY IN EACH NOSTRIL EVERY DAY * Quantity: 16.5 Refills: 0 Angelo Shanks M.D.* Started 02-Feb-2011 ActivePotassium Chloride Misti ER 10 MEQ Oral Tablet Extended Release take 4 tablets by mouth twice daily * Quantity: 240 Refills: 5 Angelo Shanks M.D.* Started 20-Sep-2010 ActiveHydrocodone-Acetaminophen 10-325 MG Oral Tablet TAKE ONE TABLET BY MOUTH EVERY 4 TO 6 HOURS NEEDEDMAX 5 PER DAY* * Quantity: 150 Refills: 0 Donnie Blanco M.D.* Started 28-Jan-2011 ActiveALPRAZolam 1 MG Oral Tablet TAKE 1 TABLET BY MOUTH FOUR TIMES DAILY NEEDED FOR ANXIETY * Quantity: 120 Refills: 0 Angelo Shanks M.D.* Started 30-Sep-2011 ActiveZetia 10 MG Oral Tablet take one tablet by mouth every day * Quantity: 30 Refills: 0 Angelo Shanks M.D.* Started 30-Mar-2010 ActiveLoratadine 10 MG Oral Tablet take one tablet by mouth every day * Quantity: 30 Refills: 5 Angelo Shanks M.D.* Started 13-Jul-2009 ActiveRanitidine HCl - 300 MG Oral Tablet TAKE 1 TABLET BY MOUTH THREE TIMES DAILY * Quantity: 90 Refills: 3 Italia Bang M.D.* Started 18-Jan-2011 ActiveZolpidem Tartrate 10 MG Oral Tablet TAKE [...] Refills: 3 Donnie Blanco M.D.* Started 23-Jul-2013 [id number] GM Tube Meloxicam 15 MG Oral Tablet TAKE 1 TABLET BY MOUTH EVERY DAY WITH FOOD * Quantity: 30 Refills: 3 Donnie Blanco M.D.* Started 19-Aug-2013 ActiveOndansetron 4 MG Oral Tablet Dispersible DISSOLVE 1 TABLET BY MOUTH EVERY 6 HOURS NEEDED FOR NAUSEA. MUST LAST 10 DAYS . * Quantity: 20 Refills: 0 Angelo Shanks M.D.* Started 15-Apr-2014 ActiveNicotine 21-14-7 MG/24HR Transdermal Kit 21 mg [id number],14mgx2 wk,1rwv8vq * Quantity: 1 Refills: 0 Angelo Shanks M.D.* Started 11-Jul-2014 ActiveTerbinafine HCl - 250 MG Oral Tablet TAKE 1 TABLET DAILY. * Quantity: 30 Refills: 5 Angelo Shanks M.D.* Started 11-Jul-2014 ActiveClotrimazole 10 MG Mouth/Throat Aubrey CHEW 1 AUBREY Every 4 hours * Quantity: 25 Refills: 0 Angelo Shanks M.D.* Started 17-Jul-2014 Active Allergies and Adverse Reactions Name Dates [...] Intramuscular Suspension Administered on:14-Mar-2009 Influenza Lot #: [id number] Administered on:18-Feb-2010 Influenza Administered on:11-Feb-2011 Influenza Administered [...] 15:26 Urinalysis, reflex to Micro and Culture ([facility]) 8016 pH 5.5 (Better) Range: 5.0-7.5 [...] for Culture----- LEUKOCYTES 1+ (Abnormal) Range: Negative Plan of Care Planned Observations* Name Dates [...]
--- OUTSIDE RECORDS SUMMARY | 2018-12-14 12:12 | XMS REPORT | Summary of Care ---
Author Author Bella Alejandra, Donnie Organization Unknown Address Unknown Phone Unavailable Care Team Providers Care Ip Technology Transactions Attorney Name Role Phone Dimitris Alejandra, Tarik Stephens [...] Quantity: 60 Angelo Shanks M.D.* Started 13-Jul-2009 ActiveCetirizine HCl - 10 MG Oral Tablet TAKE 1 TABLET BY MOUTH DAILY * Quantity: 30 Refills: 0 Angelo Shanks M.D.* Started 06-Apr-2009 ActiveProAir HFA 108 (90 Base) MCG/ACT Inhalation Aerosol Solution TAKE TWO PUFFS BY MOUTH EVERY 4 HOURS NEEDED * Quantity: 8.5 Refills: 0 Angelo Shanks M.D.* Started 04-May-2009 ActiveFurosemide 80 [...] Refills: 11 Angelo Randhawa M.D.* Started 11-Feb-2011 ActiveTriamcinolone Acetonide 55 MCG/ACT INHA USE ONE SPRAY IN EACH NOSTRIL EVERY DAY * Quantity: 16.5 Refills: 0 Angelo Shanks M.D.* Started 02-Feb-2011 ActiveAtenolol 50 MG Oral Tablet TAKE 1 TABLET BY MOUTH TWICE DAILY * Quantity: 30 Refills: 5 Angelo Shanks M.D.* Started 23-Sep-2013 ActiveOxyCONTIN 20 MG Oral Tablet ER 12 Hour Abuse-Deterrent TAKE 1 TABLET Q 12HRSMUST LAST 30 DAYS*MAY FILL ON OR AFTER 05/28/14* * Quantity: 60 Refills: 0 Donnie Blanco M.D.* Started 13-Jun-2013 ActiveClobetasol Propionate 0.05 % External Shampoo SHAMPOO HAIR/SCALP, LEAVE ON FOR 15 MINUTES AND RINSE WELL. USE DAILYFOR 4 WEEKS * Quantity: 118 Refills: 11 Angelo Shanks M.D.* Started 25-Mar-2014 ActiveTriamcinolone Acetonide 55 MCG/ACT Nasal Aerosol USE ONE SPRAY IN EACH NOSTRIL EVERY DAY * Quantity: 16.5 Refills: 2 Angelo Shanks M.D.* Started 19-May-2014 ActiveALPRAZolam 1 MG Oral Tablet TAKE 1 TABLET BY MOUTH FOUR TIMES DAILY NEEDED FOR ANXIETY * Quantity: 120 Refills: 0 Angelo Shanks M.D.* Started 30-Sep-2011 ActivePhentermine HCl - 37.5 MG Oral Tablet [...] 45 Refills: 0 Angelo Shanks M.D.* Started ActiveRanitidine HCl - 300 MG Oral Tablet Take 1 tablet at night * Quantity: 30 Refills: 4 Italia Bang M.D.* Started 18-Jan-2011 ActiveLoratadine 10 MG Oral Tablet take one tablet by mouth every day * Quantity: 30 Refills: 0 Angelo Shanks M.D.* Started 13-Jul-2009 ActiveClopidogrel Bisulfate 75 MG Oral Tablet take one tablet by mouth every day * Quantity: 30 Refills: 5 Angelo Randhawa M.D.* Started ActiveAspirin 81 MG Oral Tablet TAKE 1 TABLET DAILY. * Refills: 0 Angelo Randhawa M.D.* Started 04-Jan-2008 ActiveSingulair 10 MG Oral Tablet take one tablet by mouth every day * Quantity: 30 Refills: 2 Angelo Shanks M.D.* Started 06-Apr-2009 ActiveMeloxicam 15 MG Oral Tablet TAKE 1 TABLET BY MOUTH EVERY DAY WITH FOOD * Quantity: 30 Refills: 0 Donnie Blanco M.D.* Started 19-Aug-2013 ActiveLyrica 150 MG Oral Capsule TAKE 1 CAPSULE BY MOUTH THREE TIMES DAILY * Quantity: 90 Refills: 2 Angelo Shanks M.D.* Started 17-Sep-2013 ActiveVoltaren 1 % Transdermal Gel APPLY TO AREA, 4 GM OF GEL TO AFFECTED AREA TWICE DAILY. DO NOT APPLY MORE THAN 16 GM DAILY TO ANY ONE AFFECTED JOINT. * Quantity: 1 Refills: 3 Donnie Blanco M.D.* Started 23-Jul-2013 [id number] GM Tube Atorvastatin Calcium 80 MG Oral Tablet TAKE 1 TABLET BY MOUTH EVERY NIGHT AT BEDTIME * Quantity: 30 Refills: 6 Angelo Randhawa M.D.* Started 23-Jan-2014 ActiveZolpidem Tartrate 10 MG Oral Tablet TAKE 1 TABLET BY MOUTH EVERY DAY AT BEDTIME NEEDED * Quantity: 30 Refills: 2 Angelo Shanks M.D.* Started 30-Jul-2012 ActiveGabapentin 300 MG Oral Capsule TAKE ONE CAPSULE BY MOUTH TWICE DAILY * Quantity: 60 Refills: 0 Angelo Shanks M.D.* Started 01-Jun-2012 Active Allergies and Adverse Reactions Name Dates [...] Intramuscular Suspension Administered on:14-Mar-2009 Influenza Lot #: [id number] Administered on:18-Feb-2010 Influenza Administered on:11-Feb-2011 Influenza Administered [...] low threshold) Range: >60 EST GFR, NON-AFR [place] 45 ml/min (Below low threshold) Range: >60 Comments: EST GFR is reported in ml/min per 1.73 m2 of body surface area. For -Citizen Of [place], please multiple result by 1.2.----- GLUCOSE 91 [...] Shanks On 26-Aug-2014 09:45 * Appointment; Provider: Italia Bang On 01-Jul-2014 07:30 * Appointment; Provider: Donnie Blanco On 26-Jun-2014 15:00 [...]
--- OUTSIDE RECORDS SUMMARY | 2018-12-14 12:13 | XMS REPORT | Summary of Care ---
Author Author Virginia Dougherty APRN Organization Unknown Address [address], [place] [id number] Phone Unavailable Care Team Providers Care Dairy Associate Name Role Phone Dimitris Alejandra, Tarik Stephens Unavailable Unavailable Merritt Alejadnra, Marla Echavarria Unavailable Unavailable Bella Alejandra, Donnie [...] 6 HOURS NEEDEDMAX 5 PER DAYMAY FILL O N OR AFTER 08/23/14* * Quantity: 150 Refills: [...] Refills: 3 Donnie Blanco M.D.* Started 23-Jul-2013 [id number] GM Tube Meloxicam 15 MG Oral Tablet [...] ActiveNicotine 21-14-7 MG/24HR Transdermal Kit 21 mg [id number],14mgx2 wk,4ebm5nd * Quantity: 1 Refills: 0 Angelo Shanks [...] Intramuscular Suspension Administered on:14-Mar-2009 Influenza Lot #: [id number] Administered on:18-Feb-2010 Influenza Administered on:11-Feb-2011 Influenza Administered [...] 15:26 Urinalysis, reflex to [facility] and Culture ([facility]) 8016 pH 5.5 (Better) Range: 5.0-7.5 SP [...] *URINE CULTURE Microbiology results (Better) Comments: URINE SOURCE:Clean CatchCOLONY COUNT>100,000 cfu/ml. of a Gram Neg. BacilliRESULT:Klebsiella pneumoniae (Isolate 1)Antibiotic Sensitivity Isolate 1 ---------Ampicillin <=8 RAmpicillin/Sulbactam <=8/4 SAugmentin <=8/4 SCefazolin <=8 SCefepime <=8 SCefoxitin <=8 SCeftazidime <=1 SCeftriaxone <=8 SCefuroxime <=4 SCiprofloxacin <=1 SErtapenem <=1 SGentamicin <=4 SImipenem <=4 SLevofloxacin <=2 SMeropenem <=4 SNitrofurantoin >64 RPiperacillin/Tazobactam <=16 STetracycline <=4 STobramycin <=4 STrimeth/Sulfa <=2/38 SS=Se nsitive, I=Intermediate, R=Resistant, ESBL=Extended spectrum beta-lactamase enzymes produced, [...]
--- OUTSIDE RECORDS SUMMARY | 2018-12-14 12:14 | XMS REPORT | Summary of Care ---
Author Author Tarik Jason PT Organization Unknown Address [address] [place], [place] [address] Phone Unavailable Care Team Providers Care Wrap Knitting Machine Operator Name Role Phone Dimitris Alejandra, [...] Status: Active Fibromyalgia (729.1, M79.7) Status: Active Onychomycosis (110.1, B35.1) Status: Active Candidiasis (112.9, B37.9) Status: Active CAD (coronary atherosclerotic disease) (414.00, I25.10) Status: Active Chronic obstructive pulmonary disease (496, J44.9) Status: Active Depression (311, F32.9) Status: Active Hypertension (401.9, I10) Status: Active Hyperlipidemia (272.4, E78.5) Status: Active Allergic rhinitis (477.9, J30.9) Status: Active Anxiety (300.00, F41.9) Status: Active Nicotine dependence (305.1, F17.200) Status: Active Obesity (278.00, E66.9) Status: Active Osteoarthritis (715.90, M19.90) Status: Active Reflux esophagitis (530.11, K21.0) Status: Active 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, K22.70) Status: Active Peripheral neuropathy (356.9, G62.9) Status: Active Low back pain radiating to right leg (724.2, M54.5) Status: Active Hypokalemia (276.8, E87.6) Status: Active Medications Name Dates Details DULoxetine [...] ActiveNicotine 21-14-7 MG/24HR Transdermal Kit 21 mg bgygug2vq,14mgx2 wk,2hct9ay * Quantity: 1 Refills: 0 Angelo Shanks [...] Refills: 3 Donnie Blanco M.D.* Started 23-Jul-2013 [id number] GM Tube Belviq 10 MG Oral Tablet 1 bid for appetitie suppression * Quantity: 60 Refills: 0 Angelo Shanks M.D.* Started 26-Jun-2014 Active Allergies and Adverse Reactions Name Dates [...] (Less Than 30 Mm) MRI LUMBAR SPINE Ordered:26-Jun-2014 MRI LUMBAR SPINE Ordered:01-Jul-2014 Immunization Name Dates Details Influenza Administered on:26-Jan-2009 Pneumo (Prevnar) Administered on:06-Mar-2009 Influenza A (H1N1) Monoval Vac Intramuscular Suspension Administered on:14-Mar-2009 Influenza Lot #: [id number] Administered on:18-Feb-2010 Influenza Administered on:11-Feb-2011 Influenza Administered [...] smoker Vital Signs Date Test Result Details 31-Jul-2014 14:10 BP Systolic 146 mm[Hg] Status: [...] RPiperacillin/Tazobactam <=16 STetracycline <=4 STobramycin <=4 STrimeth/Sulfa <= SS=Se nsitive, I=Intermediate, R=Resistant, ESBL=Extended spectrum beta-lactamase [...]
--- OUTSIDE RECORDS SUMMARY | 2018-12-14 12:14 | XMS REPORT | Summary of Care ---
Author Author Bella Alejandra, Donnie Jones Unknown Address Unknown Phone Unavailable Care Team Providers Care Help Desk Rep Name Role Phone Dimitris Alejandra, Tarik Stephens [...] TWICE DAILY * Quantity: 60 Refills: 0 Agnelo Shanks M.D.* Started 01-Jun-2012 ActiveZolpidem Tartrate 10 MG Oral Tablet TAKE 1 TABLET BY MOUTH EVERY DAY AT BEDTIME NEEDED * Quantity: 30 Refills: 2 Angelo Shanks M.D.* Started 30-Jul-2012 ActivePredniSONE 20 MG Oral Tablet TAKE 3 TABLETS DAILY FOR 3 DAYS, THEN 2 TABLETS DAILY FOR 3 DAYS, THEN 1 TABLET DAILY FOR 3 DAYS. * Quantity: 18 Refills: 0 Bhavik Lopes M.D.* Started 14-Dec-2013 ActivePredniSONE 10 MG Oral Tablet iv po daily to start taper by 1 tab q3days * Quantity: 30 Refills: 0 Angelo Shanks M.D.* Started ActiveSucralfate 1 GM/10ML Oral Suspension 1 gm liquid before meals and at bedtime for 3 days * Quantity: 120 Refills: 0 Italia Bang M.D.* Started 01-Jan-2014 ActiveDexilant 60 MG Oral Capsule Delayed Release TAKE 1 CAPSULE Daily * Quantity: 30 Refills: 11 Italia Bang M.D.* Started 01-Jan-2014 ActiveAtorvastatin Calcium 80 MG Oral Tablet TAKE 1 TABLET BY MOUTH EVERY NIGHT AT BEDTIME * Quantity: 30 Refills: 3 Angelo Randhawa M.D.* Started 05-Aug-2013 ActiveAtorvastatin Calcium 80 MG Oral Tablet TAKE 1 TABLET BY MOUTH EVERY NIGHT AT BEDTIME * Quantity: 30 Refills: 6 Angelo Randhawa M.D.* Started 23-Jan-2014 ActivePantoprazole Sodium 40 MG Oral Tablet Delayed Release TAKE 1 TABLET BY MOUTH 30 MINUTES BEFORE BREAKFAST DAILY * Quantity: 30 Refills: 11 Italia Bang M.D.* Started 08-Aug-2013 ActiveAtenolol 50 MG Oral Tablet TAKE 1 [...] Refills: 3 Donnie Blanco M.D.* Started 23-Jul-2013 [id number] GM Tube Topiramate 50 MG Oral Tablet 1 at HS * Quantity: 30 Refills: 5 Angelo Shanks M.D.* Started 02-May-2014 ActiveClobetasol Propionate 0.05 % External Shampoo SHAMPOO [...] Refills: 2 Angelo Shanks M.D.* Started 17-Sep-2013 ActiveOndansetron 4 MG Oral Tablet Dispersible DISSOLVE 1 TABLET BY MOUTH EVERY 6 HOURS NEEDED FOR NAUSEA * Quantity: 20 Refills: 0 Angelo Shanks M.D.* Started 15-Apr-2014 ActivePhentermine HCl - 37.5 MG Oral Tablet TAKE 1 TABLET DAILY. * Quantity: 30 Refills: 0 Angelo Shanks M.D.* Started 23-Jul-2013 ActiveTriamcinolone Acetonide 55 MCG/ACT Nasal Aerosol USE ONE SPRAY IN EACH NOSTRIL EVERY DAY * Quantity: 16.5 Refills: 2 Angelo Shanks M.D.* Started 19-May-2014 ActiveSulfamethoxazole-TMP DS 800-160 MG Oral Tablet Take One Tablet By Mouth Twice Daily * Quantity: 10 Refills: 0 Angelo Shanks M.D.* Started 03-Jul-2012 Active Allergies and Adverse Reactions Name Dates [...] Intramuscular Suspension Administered on:14-Mar-2009 Influenza Lot #: [id number] Administered on:18-Feb-2010 Influenza Administered on:11-Feb-2011 Influenza Administered [...] Problem not documented On 14:00 Appointment; Angelo Randhwaa Encounter Diagnosis: Problem not documented On 11-Sep-2013 [...]
--- OUTSIDE RECORDS SUMMARY | 2018-12-14 12:15 | XMS REPORT | Summary of Care ---
Author Author Tarik Shanks M.D. Organization Unknown Address [address] [place], [place] [id number] Phone Unavailable Care Team Providers Care Professor Computer Science Name Role Phone Dimitris Alejandra, Tarik Stephens [...] Status: Active Candidiasis (112.9, B37.9) Status: Active Medications Name Dates Details DULoxetine [...] TIMES DAILY * Quantity: 90 Refills: 3 Merritt, Italia M.D.* Started 18-Jan-2011 ActiveHydrocodone-Acetaminophen 10-325 MG Oral [...] DAILY * Quantity: 30 Refills: 11 Italia Alejandra* Started 08-Aug-2013 ActiveTriamcinolone Acetonide 0.1 % External [...] Refills: 3 Donnie Blanco M.D.* Started 23-Jul-2013 [id number] GM Tube Meloxicam 15 MG Oral Tablet [...] ActiveNicotine 21-14-7 MG/24HR Transdermal Kit 21 mg zkljal1wi,14mgx2 wk,7yjw4yt * Quantity: 1 Refills: 0 Angelo Shanks [...] Intramuscular Suspension Administered on:14-Mar-2009 Influenza Lot #: [id number] Administered on:18-Feb-2010 Influenza Administered on:11-Feb-2011 Influenza Administered [...] smoker Vital Signs Date Test Result Details 17-Jul-2014 10:51 BP Systolic 138 mm[Hg] Status: [...] Problem not documented On 01-Jul-2014 11:30 Appointment; MerrittOctober Encounter Diagnosis: Problem not documented On 01-Jul-2014 [...]
--- OUTSIDE RECORDS SUMMARY | 2018-12-14 12:16 | XMS REPORT | Summary of Care ---
Author Author Sydnee Alejandra, Yaniv Stephens Organization Unknown Address [address] [facility] [place] [place] [id number] Phone Unavailable Care Team Providers Care Physician Liaison Name Role Phone Dimitris Alejandra, Tarik Stephens [...] Refills: 3 Donnie Blanco M.D.* Started 23-Jul-2013 [id number] GM Tube Meloxicam 15 MG Oral Tablet [...] ActiveNicotine 21-14-7 MG/24HR Transdermal Kit 21 mg uccery7zj,14mgx2 wk,4bsl2gl * Quantity: 1 Refills: 0 Angelo Shanks [...] 7 days * Quantity: 14 Refills: 0 Keenanrekha Virginia PILO* Started 23-Jul-2014 ActiveOxyCONTIN 20 MG Oral Tablet [...] Intramuscular Suspension Administered on:14-Mar-2009 Influenza Lot #: [id number] Administered on:18-Feb-2010 Influenza Administered on:11-Feb-2011 Influenza Administered [...] 15:26 Urinalysis, reflex to Micro and Culture ([facility]) 8016 pH 5.5 (Better) Range: [...]
--- OUTSIDE RECORDS SUMMARY | 2018-12-14 12:16 | XMS REPORT | Summary of Care ---
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, K22.70) Status: Active Medications Name Dates Details DULoxetine [...] Refills: 3 Donnie Blanco M.D.* Started 23-Jul-2013 [id number] GM Tube Meloxicam 15 MG Oral Tablet [...] Than 30 Mm) MRI LUMBAR SPINE Ordered:26-Jun-2014 Immunization Name Dates Details Influenza Administered on:26-Jan-2009 Pneumo (Prevnar) Administered on:06-Mar-2009 Influenza A (H1N1) Monoval Vac Intramuscular Suspension Administered on:14-Mar-2009 Influenza Lot #: [id number] Administered on:18-Feb-2010 Influenza Administered on:11-Feb-2011 Influenza Administered [...] low threshold) Range: >60 EST GFR, NON-AFR IRISH 45 ml/min (Below low threshold) Range: >60 Comments: EST GFR is reported in ml/min per 1.73 m2 of body surface area. For -Iranian, please multiple result by 1.2.----- GLUCOSE 91 [...] Instructions * Instructions not documented Encounters Appointment; Italia Bang Encounter Diagnosis: Problem not [...]
--- OUTSIDE RECORDS SUMMARY | 2018-12-14 12:17 | XMS REPORT | Summary of Care ---
Author Author Dimitris Alejandra, Tarik Stephens Organization Unknown Address [address] [place], [place] [id number] Phone Unavailable Care Team Providers Care Staff Therapist Name Role Phone Dimitris Alejandra, Tarik [...] Refills: 3 Donnie Blanco M.D.* Started 23-Jul-2013 [id number] GM Tube Topiramate 50 MG Oral Tablet 1 at HS * Quantity: 30 Refills: 5 Angelo Shanks M.D.* Started 02-May-2014 ActiveClobetasol Propionate 0.05 % External Shampoo SHAMPOO HAIR/SCALP, LEAVE ON FOR 15 MINUTES AND RINSE WELL. USE DAILYFOR 4 WEEKS * Quantity: 118 Refills: 11 Agnelo Shanks M.D.* Started 25-Mar-2014 ActiveSulfamethoxazole-TMP DS 800-160 [...] Intramuscular Suspension Administered on:14-Mar-2009 Influenza Lot #: [id number] Administered on:18-Feb-2010 Influenza Administered on:11-Feb-2011 Influenza Administered [...] Problem not documented On 10-Apr-2013 10:00 Appointment; [facility] Encounter Diagnosis: Problem not documented On 10-Apr-2013 [...]
--- OUTSIDE RECORDS SUMMARY | 2018-12-14 12:17 | XMS REPORT | Summary of Care ---
Author Author Dimitris Alejandra, Tarik Stephens Organization Unknown Address [address] [place], [place] [id number] Phone Unavailable Care Team Providers Care Policy Change Clerks Supervisor Name Role Phone Dimitris Alejandra, Tarik [...] Status: Active Insomnia (780.52, G47.00) Status: Active Fibromyalgia (729.1, M79.7) Status: Active [...] every day * Quantity: 30 Refills: 2 nAgelo Shanks M.D.* Started 06-Apr-2009 ActiveAspirin 81 MG [...] Refills: 5 Angelo Shanks M.D.* Started 20-Sep-2010 ActiveLisinopril 10 [...] Refills: 2 Angelo Shanks M.D.* Started 17-Sep-2013 ActiveALPRAZolam 1 MG Oral Tablet TAKE 1 TABLET BY MOUTH FOUR TIMES DAILY NEEDED FOR ANXIETY * Quantity: 120 Refills: 0 Angelo Shanks M.D.* Started 30-Sep-2011 ActiveNicotine 21-14-7 MG/24HR Transdermal Kit 21 mg vgtlya5em,14mgx2 wk,7obj9mn * Quantity: 1 Refills: 0 Angelo Shanks M.D.* Started 11-Jul-2014 ActiveTerbinafine HCl - 250 MG Oral Tablet TAKE 1 TABLET DAILY. * Quantity: 30 Refills: 5 Angelo Shanks M.D.* Started 11-Jul-2014 ActiveRanitidine HCl - 300 MG Oral Tablet TAKE 1 TABLET BY MOUTH THREE TIMES DAILY * Quantity: 90 Refills: 3 Italia Bang M.D.* Started 18-Jan-2011 ActiveClotrimazole 10 MG Mouth/Throat Aubrey CHEW 1 AUBREY Every 4 hours * Quantity: 25 Refills: 0 Angelo Shanks M.D.* Started 17-Jul-2014 ActiveHydrocodone-Acetaminophen 10-325 MG Oral Tablet TAKE ONE [...] Refills: 11 Italia Bang M.D.* Started 08-Aug-2013 ActiveBelviq 10 MG Oral Tablet TAKE 1 TABLET TWICE DAILY.*MUST LAST 30 DAYS* * Quantity: 60 Refills: 0 Donnie lBanco M.D.* Started 26-Jun-2014 ActiveMeloxicam 15 MG Oral Tablet TAKE 1 [...] Refills: 3 Donnie Blanco M.D.* Started 23-Jul-2013 [id number] GM Tube Allergies and Adverse Reactions Name [...] Intramuscular Suspension Administered on:14-Mar-2009 Influenza Lot #: [id number] Administered on:18-Feb-2010 Influenza Administered on:11-Feb-2011 Influenza Administered [...] 15:26 Urinalysis, reflex to Micro and Culture ([facility]) 8016 pH 5.5 (Better) Range: 5.0-7.5 [...]
--- OUTSIDE RECORDS SUMMARY | 2018-12-14 12:18 | XMS REPORT | Summary of Care ---
Author Author Virginia Dougherty APRN Organization Unknown Address [address] [place], [place] [id number] Phone Unavailable Care Team Providers Care Communication Analyst Name Role Phone Dimitris Alejandra, Tarik Stephens [...] Refills: 3 Donnie Blanco M.D.* Started 23-Jul-2013 [id number] GM Tube Meloxicam 15 MG Oral Tablet [...] ActiveNicotine 21-14-7 MG/24HR Transdermal Kit 21 mg ynjnzv6sz,14mgx2 wk,7kzh3rx * Quantity: 1 Refills: 0 Angelo Shanks M.D.* Started 11-Jul-2014 ActiveTerbinafine HCl - 250 MG Oral Tablet TAKE 1 TABLET DAILY. * Quantity: 30 Refills: 5 Angelo Shanks M.D.* Started 11-Jul-2014 ActiveClotrimazole 10 MG Mouth/Throat Aubrey CHEW 1 AUBREY Every 4 hours * Quantity: 25 Refills: 0 Angelo Shanks M.D.* Started 17-Jul-2014 ActiveCefTRIAXone Sodium 1 GM Injection Solution Reconstituted 1gm IM in clinic * Quantity: 1 Refills: 0 Virginia Dougherty APRN* Started 23-Jul-2014 Admin RequestedCiprofloxacin HCl - 500 MG Oral Tablet 1 [...] Intramuscular Suspension Administered on:14-Mar-2009 Influenza Lot #: [id number] Administered on:18-Feb-2010 Influenza Administered on:11-Feb-2011 Influenza Administered [...] 15:26 Urinalysis, reflex to [facility] Culture ([facility]) 8016 pH 5.5 (Better) [...] Problem not documented On 02-May-2014 08:00 Appointment; Angeol Shanks Encounter Diagnosis: Problem not documented On [...]
--- OUTSIDE RECORDS SUMMARY | 2018-12-14 12:19 | XMS REPORT | Summary of Care ---
Author Author Merritt Alejandra, Marla Echavarria Organization Unknown Address [address] [place], [place] [phone] Phone Unavailable Care Team Providers Care Tube Buffer Name Role Phone Dimitris Alejandra, Tarik Stephens Unavailable Unavailable Merritt Alejandra, Marla Echavarria Unavailable Unavailable Bella Alejanrda, Donnie Unavailable Unavailable Sydnee Alejandra, Yaniv Stephens [...] 30 Refills: 11 Angelo Randhawa M.D.* Started 30-Sep-2011 ActiveGabapentin 300 MG Oral Capsule TAKE ONE CAPSULE BY MOUTH TWICE DAILY * Quantity: 60 Refills: 0 Angelo Shanks M.D.* Started 01-Jun-2012 ActiveZolpidem Tartrate 10 MG Oral Tablet TAKE 1 TABLET BY MOUTH EVERY DAY AT BEDTIME NEEDED * Quantity: 30 Refills: 2 Angelo Sahnks M.D.* Started 30-Jul-2012 ActiveTriamcinolone Acetonide 55 MCG/ACT [...] Refills: 0 Donnie Blanco M.D.* Started 28-Jan-2011 ActiveClobetasol Propionate 0.05 % External Shampoo SHAMPOO [...] BEFORE BREAKFAST DAILY * Quantity: 30 Refills: October Justyn* Started 08-Aug-2013 ActiveTriamcinolone Acetonide 0.1 % External Cream APPLY A SMALL AMOUNT TO THE AFFECTED AREAS 3 TIMES DAILY * Quantity: 45 Refills: 0 Angelo Shanks M.D.* Started ActiveRanitidine HCl - 300 MG Oral Tablet Take 1 tablet at night * Quantity: 30 Refills: October Justyn* Started 18-Jan-2011 ActiveVoltaren 1 % Transdermal Gel APPLY TO AREA, 4 GM OF GEL TO AFFECTED AREA TWICE DAILY. DO NOT APPLY MORE THAN 16 GM DAILY TO ANY ONE AFFECTED JOINT. * Quantity: 1 Refills: 3 Donnie Blanco M.D.* Started 23-Jul-2013 [id number] GM Tube Lyrica 150 MG Oral Capsule TAKE 1 CAPSULE BY MOUTH THREE TIMES DAILY * Quantity: 90 Refills: 2 Angelo Shanks M.D.* Started 17-Sep-2013 ActiveMeloxicam 15 MG Oral Tablet TAKE 1 TABLET BY MOUTH EVERY DAY WITH FOOD * Quantity: 30 Refills: 0 Donnie Blanco M.D.* Started 19-Aug-2013 Active Allergies [...] Intramuscular Suspension Administered on:14-Mar-2009 Influenza Lot #: [id number] Administered on:18-Feb-2010 Influenza Administered on:11-Feb-2011 Influenza Administered [...] low threshold) Range: >60 EST GFR, NON-AFR THAI 45 ml/min (Below low threshold) Range: >60 Comments: EST GFR is reported in ml/min per 1.73 m2 of body surface area. For -Malawian, please multiple result by 1.2.----- GLUCOSE 91 [...] Problem not documented On 24-Feb-2014 13:30 Appointment; Dnonie Blanco Encounter Diagnosis: Problem not documented On [...] not documented On 29-Mar-2013 09:00 Appointment; Wei Streteer Encounter Diagnosis: Problem not documented On 26-Sep-2012 [...]
--- OUTSIDE RECORDS SUMMARY | 2018-12-14 12:19 | XMS REPORT | Summary of Care ---
Author Author Dimitris Alejandra, Tarik Stephens Organization Unknown Address [address] [place], [place] [phone] Phone Unavailable Care Team Providers Care President Financial Institution Name Role Phone Dimitris Alejandra, Tarik Stephens [...] Refills: 0 Angelo Shanks M.D.* Started 06-Apr-2009 ActiveFurosemide 80 MG Oral Tablet take one [...] Refills: 5 Angelo Shanks M.D.* Started 16-Feb-2010 ActivePotassium Chloride Misti ER 10 MEQ Oral [...] Refills: 3 Donnie Blanco M.D.* Started 23-Jul-2013 [id number] GM Tube Phentermine HCl - 37.5 MG Oral Tablet TAKE 1 TABLET DAILY. * Quantity: 30 Refills: 0 Angelo Shanks M.D.* Started 23-Jul-2013 ActiveAtorvastatin Calcium 80 MG Oral Tablet TAKE 1 TABLET BY MOUTH EVERY NIGHT AT BEDTIME * Quantity: 30 Refills: 3 Angelo Randhawa M.D.* Started 05-Aug-2013 ActiveMeloxicam 15 MG Oral Tablet TAKE 1 TABLET BY MOUTH EVERY DAY WITH FOOD * Quantity: 30 Refills: 0 Donnie Blanco M.D.* Started 19-Aug-2013 ActiveSulfamethoxazole-TMP DS 800-160 MG Oral Tablet TAKE 1 TABLET BY MOUTH TWICE DAILY FOR 7 DAYS * Quantity: 14 Refills: 0 Angelo Shanks M.D.* Started 09-Sep-2013 ActiveLyrica 150 MG Oral Capsule TAKE 1 [...] 45 Refills: 0 Angelo Shanks M.D.* Started ActiveDexilant 60 MG Oral Capsule Delayed Release TAKE 1 CAPSULE Daily * Quantity: 30 Refills: Italia Bang M.D.* Started 01-Jan-2014 ActiveSucralfate 1 GM/10ML Oral Suspension 1 gm liquid before meals and at bedtime for 3 days * Quantity: 120 Refills: 0 Italia Bang M.D.* Started 01-Jan-2014 ActiveProAir HFA 108 (90 Base) MCG/ACT Inhalation Aerosol Solution TAKE 2 PUFFS BY MOUTH EVERY 4 HOURS NEEDED * Quantity: 8.5 Refills: 11 Angelo Shanks M.D.* Started 04-May-2009 ActivePredniSONE 20 MG Oral Tablet TAKE 3 TABLETS DAILY FOR 3 DAYS, THEN 2 TABLETS DAILY FOR 3 DAYS, THEN 1 TABLET DAILY FOR 3 DAYS. * Quantity: 18 Refills: 0 Bhavik Lopes M.D.* Started 14-Dec-2013 ActivePredniSONE 10 MG Oral Tablet iv po daily to start taper by 1 tab q3days * Quantity: 30 Refills: 0 Angelo Shanks M.D.* Started ActiveAtorvastatin Calcium 80 MG Oral Tablet TAKE 1 TABLET BY MOUTH EVERY NIGHT AT BEDTIME * Quantity: 30 Refills: 6 Angelo Randhawa M.D.* Started 23-Jan-2014 ActivePantoprazole Sodium 40 MG Oral Tablet Delayed Release TAKE 1 TABLET BY MOUTH 30 MINUTES BEFORE BREAKFAST DAILY * Quantity: 30 Refills: 11 Italia Bang M.D.* Started 08-Aug-2013 ActiveTopiramate 50 MG Oral Tablet 1 at HS * Quantity: 30 Refills: 5 Angelo Shanks M.D.* Started 02-May-2014 ActiveClobetasol Propionate 0.05 % External Shampoo SHAMPOO HAIR/SCALP, LEAVE ON FOR 15 MINUTES AND RINSE WELL. USE DAILYFOR 4 WEEKS * Quantity: 118 Refills: 11 Angelo Shanks M.D.* Started 25-Mar-2014 ActiveZetia 10 MG Oral Tablet take one tablet by mouth every day * Quantity: 30 Refills: 0 Angelo Shanks M.D.* Started 30-Mar-2010 ActiveOndansetron 4 MG Oral Tablet Dispersible DISSOLVE [...] Intramuscular Suspension Administered on:14-Mar-2009 Influenza Lot #: [id number] Administered on:18-Feb-2010 Influenza Administered on:11-Feb-2011 Influenza Administered [...] On 22-Jan-2008 13:00 * Appointment; Provider: Angelo Radnhawa On 11:00 * Appointment; Provider: Angelo Randhawa [...]
--- OUTSIDE RECORDS SUMMARY | 2018-12-14 12:20 | XMS REPORT | Summary of Care ---
Author Author Merritt Alejandra, Marla Echavarria Organization Unknown Address [address] [place], [place] [phone] Phone Unavailable Care Team Providers Care Surgical Scrub Tech Name Role Phone Dimitris Alejandra, Tarik Stephens [...] Refills: 3 Donnie Blanco M.D.* Started 23-Jul-2013 [id number] GM Tube Topiramate 50 MG Oral Tablet [...] Intramuscular Suspension Administered on:14-Mar-2009 Influenza Lot #: [id number] Administered on:18-Feb-2010 Influenza Administered on:11-Feb-2011 Influenza Administered [...]
--- OUTSIDE RECORDS SUMMARY | 2018-12-14 12:20 | XMS REPORT | Summary of Care ---
Author Author Bella Alejandra, Donnie Jones Unknown Address Unknown Phone Unavailable Care Team Providers Care Career Development Facilitator Name Role Phone Dimitris Alejandra, Tarik Stephens [...] Active Esophageal stenosis (530.3, K22.2) Status: Active Eczema (692.9, L30.9) Status: Active [...] II, BMI 35-39.9 (278.00, E66.9) Status: Active Medications Name Dates Details DULoxetine [...] Refills: 0 Angelo Shanks M.D.* Started 06-Apr-2009 ActiveLisinopril 10 MG Oral Tablet take 1 [...] Angelo Shanks M.D.* Started 02-Feb-2011 ActivePotassium Chloride Msiti ER 10 MEQ Oral Tablet Extended Release take 4 tablets by mouth twice daily * Quantity: 240 Refills: 5 Angelo Shanks M.D.* Started 20-Sep-2010 ActiveZetia 10 MG Oral Tablet take one tablet by mouth every day * Quantity: 30 Refills: 0 Angelo Shanks M.D.* Started 30-Mar-2010 ActiveLoratadine 10 MG Oral Tablet take one tablet by mouth every day * Quantity: 30 Refills: 0 Angelo Shanks M.D.* Started 13-Jul-2009 ActiveProAir HFA 108 (90 Base) MCG/ACT Inhalation Aerosol Solution TAKE TWO PUFFS BY MOUTH EVERY 4 HOURS NEEDED * Quantity: 8.5 Refills: 0 Angelo Shanks M.D.* Started 04-May-2009 ActiveRanitidine HCl - 300 MG Oral Tablet Take 1 tablet at night * Quantity: 30 Refills: 4 Italia Bang M.D.* Started 18-Jan-2011 ActiveHydrocodone-Acetaminophen 10-325 MG Oral Tablet TAKE ONE TABLET BY MOUTH EVERY 4 TO 6 HOURS NEEDEDMAX 5 PER DAY* * Quantity: 150 Refills: 0 Donnie Blanco M.D.* Started 28-Jan-2011 ActiveGabapentin 300 MG Oral Capsule TAKE ONE [...] Refills: 0 Angelo Shanks M.D.* Started 30-Sep-2011 ActivePantoprazole Sodium 40 MG Oral Tablet Delayed [...] Refills: 3 Donnie Blanco M.D.* Started 23-Jul-2013 [id number] GM Tube Meloxicam 15 MG Oral Tablet [...] Intramuscular Suspension Administered on:14-Mar-2009 Influenza Lot #: [id number] Administered on:18-Feb-2010 Influenza Administered on:11-Feb-2011 Influenza Administered [...] low threshold) Range: >60 EST GFR, NON-AFR UKRAINIAN 45 ml/min (Below low threshold) Range: >60 Comments: EST GFR is reported in ml/min per 1.73 m2 of body surface area. For -Paraguayan, please multiple result by 1.2.----- GLUCOSE 91 [...] Blanco On 24-Jul-2014 13:00 * Appointment; Provider: Italia Bang On 01-Jul-2014 07:30 * Appointment; Provider: Angelo Shanks On 30-Jun-2014 09:45 * Appointment; Provider: Angelo Randhawa On [...]
--- OUTSIDE RECORDS SUMMARY | 2018-12-14 12:21 | XMS REPORT | Summary of Care ---
Author Author Bella Alejandra, Donnie Jones Unknown Address Unknown Phone Unavailable Care Team Providers Care Erp Consultant Name Role Phone Dimitris Alejandra, Tarik Stephens Unavailable Unavailable Merritt Alejandra, Marla Echavarria Unavailable Unavailable Donnie Blanco M.D. Unavailable Unavailable Virginia Dougherty APRN Unavailable Unavailable [...] Refills: 3 Donnie Blanco M.D.* Started 23-Jul-2013 [id number] GM Tube Meloxicam 15 MG Oral Tablet [...] ActiveNicotine 21-14-7 MG/24HR Transdermal Kit 21 mg knskgw9bq,14mgx2 wk,4jon1oo * Quantity: 1 Refills: 0 Angelo Shanks [...] * Quantity: 14 Refills: 0 Virginia Dougherty PILO* Started 23-Jul-2014 Active Allergies and Adverse Reactions [...] Intramuscular Suspension Administered on:14-Mar-2009 Influenza Lot #: [id number] Administered on:18-Feb-2010 Influenza Administered on:11-Feb-2011 Influenza Administered [...] Vital Signs Date Test Result Details 24-Jul-2014 13:09 BP Systolic 134 mm[Hg] Status: [...] 15:26 Urinalysis, reflex to Micro and Culture ([facility]) 8016 pH 5.5 (Better) Range: 5.0-7.5 SP [...] Randhawa On 24-Jul-2014 15:15 * Appointment; Provider: Angelo Randhawa On [...]
--- OUTSIDE RECORDS SUMMARY | 2018-12-14 12:22 | XMS REPORT | Continuity of Care Document ---
Author Organization Unknown Address Unknown Phone Unavailable Allergies Active Description Code Type Severity Reaction Onset Reported/Identified Relationship to Patient Clinical Status Yes eggs Food Allergy N/A N/A Yes lactose intolerent Food Allergy N/A N/A Yes No Known Drug Allergies [id number] Drug Allergy Unknown N/A 06/16/2017 Medications There is no data. 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, UNS 01/29/2016 LILIYA KIRK MD, Ot K29.40 CHRONIC ATROPHIC GASTRITIS WITHOUT BLEED 01/29/2016 LILIYA KIRK MD Ot K44.9 DIAPHRAGMATIC HERNIA WITHOUT OBSTRUCTION 02/08/2016 LILIYA KIRK MD, Ot K22.719 FIGUEROA'S ESOPHAGUS WITH DYSPLASIA, UNSP 02/08/2016 REAGAN ARAUJO, LILIYA Morales Ot K29.40 CHRONIC ATROPHIC GASTRITIS WITHOUT BLEED 02/08/2016 REAGAN ARAUJO, LILIYA Morales Ot K44.9 DIAPHRAGMATIC HERNIA WITHOUT OBSTRUCTION 07/11/2016 MADYSON ARAUJO, OLEG Granda Ot N32.81 OVERACTIVE BLADDER 07/11/2016 MADYSON ARAUJO, OLEG Granda Ot N36.42 INTRINSIC SPHINCTER DEFICIENCY (ISD) 07/11/2016 MADYSON ARAUJO, OLEG A Ot N39.46 MIXED INCONTINENCE 07/11/2016 MADYSON ARAUJO, OLEG Granda Ot Z01.818 ENCOUNTER FOR OTHER PREPROCEDURAL EXAMIN 07/12/2016 MADYSON ARAUJO, OLEG Granda Ot N32.81 [...] ENCNTR SCREEN MAMMOGRAM FOR MALIGNANT NE 06/08/2017 ROCIO ARAUJO, JULES Ot K92.1 MELENA 06/08/2017 ROCIO ARAUJO, JULES Ot Z01.818 ENCOUNTER FOR OTHER PREPROCEDURAL EXAMIN [...] I10 ESSENTIAL (PRIMARY) HYPERTENSION 06/23/2017 HERNAN BRYAN MD Ot I25.10 ATHSCL HEART DISEASE OF [place] CORONARY 06/23/2017 HERNAN BRYAN MD Ot Z48.815 ENCNTR FOR SURGICAL AFTCR FOLLOWING SURG 06/23/2017 HERNAN BRYAN MD Ot Z68.31 BODY MASS INDEX (BMI) 31.0-31.9, ADULT 06/23/2017 HERNAN BRYAN MD Ot Z87.891 PERSONAL HISTORY OF NICOTINE DEPENDENCE 06/23/2017 HERNAN BRYAN MD Ot Z95.5 PRESENCE OF CORONARY ANGIOPLASTY IMPLANT 10/24/2017 LILIYA KIRK MD Ot R13.10 DYSPHAGIA, UNSPECIFIED 10/24/2017 LILIYA KIRK MD Ot Z01.818 ENCOUNTER FOR OTHER PREPROCEDURAL EXAMIN 10/25/2017 LILIYA KIRK MD Ot R13.10 DYSPHAGIA, UNSPECIFIED 10/25/2017 LILIYA KIRK MD Ot Z01.818 ENCOUNTER FOR OTHER PREPROCEDURAL EXAMIN 10/27/2017 LILIYA KIRK MD Ot R13.10 DYSPHAGIA, UNSPECIFIED 10/27/2017 LILIYA KIRK MD Ot Z01.818 ENCOUNTER FOR OTHER PREPROCEDURAL EXAMIN 10/27/2017 NATALIE ARAUJO, SHANIQUA Peng Ot Z12.31 ENCNTR SCREEN MAMMOGRAM FOR MALIGNANT NE 10/27/2017 JULES CHAN MD Ot K92.1 MELENA 10/27/2017 JULES CHAN MD Ot Z01.818 ENCOUNTER FOR OTHER PREPROCEDURAL EXAMIN 10/27/2017 JULES CHAN MD Ot Z12.11 ENCOUNTER FOR SCREENING FOR MALIGNANT NE 10/27/2017 LILIYA KIRK MD Ot I12.9 HYPERTENSIVE CHRONIC KIDNEY DISEASE W ST 10/27/2017 REAGAN ARAUJO, LILIYA Morales Ot K22.2 ESOPHAGEAL OBSTRUCTION 10/27/2017 LILIYA KIRK MD Ot K22.70 FIGUEROA'S ESOPHAGUS WITHOUT DYSPLASIA 10/27/2017 LILIYA KIRK MD Ot K44.9 DIAPHRAGMATIC HERNIA WITHOUT OBSTRUCTION 10/27/2017 LILIYA KIRK MD Ot N18.3 CHRONIC KIDNEY DISEASE, STAGE 3 (MODERAT 10/27/2017 LILIYA KIRK MD Ot Z79.82 FACIALIST (CURRENT) USE OF ASPIRIN 10/27/2017 LILIYA KIRK MD Ot Z79.899 OTHER FACIALIST (CURRENT) DRUG THERAPY 10/27/2017 LILIYA KIRK MD Ot Z87.891 PERSONAL HISTORY OF NICOTINE DEPENDENCE 10/31/2017 LILIYA KIRK MD Ot I12.9 HYPERTENSIVE CHRONIC KIDNEY DISEASE W ST 10/31/2017 LILIYA KIRK MD Ot K22.2 ESOPHAGEAL OBSTRUCTION 10/31/2017 LILIYA KIRK MD Ot K22.70 FIGUEROA'S ESOPHAGUS WITHOUT DYSPLASIA 10/31/2017 LILIYA KIRK MD Ot K44.9 DIAPHRAGMATIC HERNIA WITHOUT OBSTRUCTION 10/31/2017 LILIYA KIRK MD Ot N18.3 CHRONIC KIDNEY DISEASE, STAGE 3 (MODERAT 10/31/2017 LILIYA KIRK MD Ot Z79.82 FACIALIST (CURRENT) USE OF ASPIRIN 10/31/2017 LILIYA KIRK MD Ot Z79.899 OTHER SHELTER (CURRENT) DRUG THERAPY 10/31/2017 LILIYA KIRK MD Ot Z87.891 PERSONAL HISTORY OF NICOTINE DEPENDENCE 06/28/2018 LILIYA KIRK MD Ot R13.10 DYSPHAGIA, UNSPECIFIED 06/28/2018 LILIYA KIRK MD Ot Z01.818 ENCOUNTER FOR OTHER PREPROCEDURAL EXAMIN 06/28/2018 NATALIE ARAUJO, SHANIQUA Peng Ot Z12.31 ENCNTR SCREEN MAMMOGRAM FOR MALIGNANT NE 06/28/2018 JULES CHAN MD Ot K92.1 MELENA 06/28/2018 JULES CHAN MD Ot Z01.818 ENCOUNTER FOR OTHER PREPROCEDURAL EXAMIN 06/28/2018 JULES CHAN MD Ot Z12.11 ENCOUNTER FOR SCREENING FOR MALIGNANT NE 07/04/2018 BATSHEVA MC Ot M19.011 PRIMARY OSTEOARTHRITIS, RIGHT SHOULDER 07/04/2018 BATSHEVA MC Marla [facility] Ot M19.012 PRIMARY OSTEOARTHRITIS, LEFT SHOULDER 07/19/2018 LAURA MCFELICIA Gutiérrez [facility] Ot M19.011 PRIMARY OSTEOARTHRITIS, RIGHT SHOULDER 07/19/2018 BATSHEVA MC Marla [facility] Ot M19.012 PRIMARY OSTEOARTHRITIS, LEFT SHOULDER 11/07/2018 RUBI LACKEY MILLWRIGHT Ot R10.11 RIGHT UPPER QUADRANT PAIN 11/07/2018 RUBI LACKEY MILLWRIGHT Ot Z96.643 PRESENCE OF ARTIFICIAL HIP JOINT, BILATE Procedures There is no data. Results Test Result Range Methicillin resistant Staphylococcus aureus (MRSA) screening culture - 07/15/16 06:28 Methicillin resistant Staphylococcus aureus (MRSA) screening culture NEG NRG SUREPATH PAP AND HPV mRNA E6/E7 - 04/13/17 10:56 CLINICAL INFORMATION: NRG LMP: NRG PREV. PAP: NORMAL NRG PREV. BX: NONE NRG SOURCE: Cervix NRG STATEMENT OF ADEQUACY: NRG INTERPRETATION/RESULT: NRG ETHYLENE COMPRESSOR OPERATOR: NRG HPV mRNA E6/E7, SUREPATH VIAL Detected NOT DETECTED REVIEW ETHYLENE COMPRESSOR OPERATOR: NRG INFECTION: NRG PATHOLOGY REPORT (TISSUE PAHOLOGY) - 05/24/17 15:12 CLINICAL INFORMATION NR PATHOLOGIST NR TISSUE, 2 SPECIMENS - 05/24/17 15:12 A SOURCE NRG A GROSS DESCRIPTION NRG A DIAGNOSIS NRG Complete blood count (CBC) with automated white [...] Automated erythrocyte mean corpuscular hemoglobin concentration measurement (mass/volume) 34 g/dL 32-36 Automated erythrocyte distribution width ratio 13.9 % 10.0- 14.5 Automated blood platelet count (count/volume) 543 10*3/uL [...] Blood monocytes automated count (number/volume) 0.9 10*3 0.0- 1.0 Automated eosinophil count 0.1 10*3/uL 0.0-0.3 Automated [...] Serum or plasma aspartate aminotransferase measurement (enzymatic activity/volume) 21 U/L 5-34 Serum or plasma alanine aminotransferase measurement (enzymatic activity/volume) 16 U/L 0-55 Serum or plasma protein measurement (mass/volume) 6.4 g/dL 6.4-8.2 Serum or plasma albumin measurement (mass/volume) 3.1 g/dL 3.2-4.5 Lipid 1996 panel - 06/17/17 05:05 Serum or plasma triglyceride measurement (mass/volume) 178 mg/dL <150 Serum or plasma cholesterol measurement (mass/volume) 126 mg/dL < 200 Serum or plasma cholesterol in HDL measurement (mass/volume) 24 mg/dL 40-60 Cholesterol in LDL [mass/volume] in serum or plasma by direct assay 77 mg/dL 1-129 Serum or plasma cholesterol in VLDL measurement (mass/volume) 36 mg/dL 5-40 Complete blood count (CBC) with automated [...] Automated erythrocyte mean corpuscular hemoglobin concentration measurement (mass/volume) 34 g/dL 32-36 Automated erythrocyte distribution width ratio 14.0 % 10.0- 14.5 Automated blood platelet count (count/volume) 456 10*3/uL [...] Blood monocytes automated count (number/volume) 0.9 10*3 0.0- 1.0 Automated eosinophil count 0.1 10*3/uL 0.0-0.3 Automated [...] Serum or plasma aspartate aminotransferase measurement (enzymatic activity/volume) 14 U/L 5-34 Serum or plasma alanine aminotransferase measurement (enzymatic activity/volume) 12 U/L 0-55 Serum or plasma protein measurement (mass/volume) 5.8 g/dL 6.4-8.2 Serum or plasma albumin measurement (mass/volume) 2.7 g/dL 3.2-4.5 CMP - 12/04/17 11:34 GLUCOSE 147 mg/dL 65-99 UREA NITROGEN (BUN) 14 mg/dL 7-25 CREATININE 1.16 mg/dL 0.50-0.99 eGFR NON-AFR. BANGLADESHI 50 mL/min/1.73m2 > OR=60 eGFR 58 mL/min/1.73m2 > OR=60 BUN/CREATININE RATIO 12 (calc) 6-22 SODIUM 142 mmol/L 135-146 POTASSIUM 4.2 mmol/L 3.5-5.3 CHLORIDE 105 mmol/L 98-110 CARBON DIOXIDE 27 mmol/L 20-31 CALCIUM 10.0 mg/dL 8.6-10.4 PROTEIN, TOTAL 7.0 g/dL 6.1-8.1 ALBUMIN 4.2 g/dL 3.6-5.1 GLOBULIN 2.8 g/dL (calc) 1.9-3.7 ALBUMIN/GLOBULIN RATIO 1.5 (calc) 1.0-2.5 BILIRUBIN, TOTAL 0.9 mg/dL 0.2-1.2 ALKALINE PHOSPHATASE 122 U/L 33-130 AST 22 U/L 10-35 ALT 17 U/L 6-29 A1C - 09/06/18 09:00 HEMOGLOBIN A1c 5.6 % of total Hgb <5.7 Encounters ACCT No. Visit Date/Time Discharge Status Pt. Type Provider Facility Loc./Unit Complaint [id number] 03/31/2015 06:45:00 04/04/2015 03:30:02 DIS Outpatient UNASSIGNED DOCTOR, DOCTOR [id number] 03/31/2015 07:23:00 04/01/2015 02:46:49 DIS Emergency FADI FABIEN Bernie [id number] 11/07/2018 10:20:00 11/07/2018 23:59:59 CLS Outpatient RUBI LACKEY [facility] [id number] 09/06/2018 09:30:00 Document Registration [id number] 12/04/2017 10:40:00 Document Registration [id number] 05/24/2017 13:20:00 Document Registration [id number] 04/13/2017 10:20:00 Document Registration [id number] 10/25/2018 15:50:00 10/25/2018 23:59:59 CLS Outpatient RUBI LACKEY [facility] RAD FS R10.11 [id number] 06/28/2018 11:23:00 06/28/2018 23:59:59 CLS Outpatient BATSHEVA MC [facility] RAD FS BILATERAL ARTHRITIS OF GLENOHUMERAL JOINTS [id number] 10/27/2017 08:00:00 10/27/2017 11:05:00 DIS Outpatient LILIYA KIRK MD [facility] ENDO DYSPHAGIA/HX OF [place] [id number] 10/24/2017 05:40:00 10/24/2017 14:26:00 DIS Outpatient LILIYA KIRK MD [facility] PREOP EGD [id number] 06/16/2017 13:40:00 06/23/2017 12:58:00 DIS Inpatient RANDI ARAUJO, HERNAN Mccarthy [facility] IRF DEBILITY [id number] 06/07/2017 05:31:00 06/07/2017 23:59:59 CLS Outpatient JULES CHAN MD [facility] PREOP COLONOSCOPY [id number] 04/20/2017 13:03:00 04/20/2017 23:59:59 CLS Outpatient SHANIQUA ESTRADA MD [facility] RAD WELL WOMAN EXAM [id number] 03/02/2017 14:11:00 03/02/2017 23:59:59 CLS Preadmit SONIYA ARAUJO, DELMI Allen [facility] RAD ROUTINE MAINTENANCE [id number] 07/15/2016 06:05:00 07/15/2016 09:35:00 DIS Outpatient OLEG COUGHLIN MD [facility] STRESS URINARY INCONTINENCE [id number] 07/11/2016 12:28:00 07/11/2016 12:58:00 DIS Outpatient OLEG COUGHLIN MD [facility] PREOP INCONT [id number] 01/29/2016 09:11:00 01/29/2016 12:00:00 DIS [facility] [id number] 01/28/2016 06:11:00 01/28/2016 23:59:59 CLS Outpatient LILIYA KIRK MD [facility] PREOP DYSPHAGIA [id number] 05/14/2015 20:48:00 05/14/2015 22:18:00 DIS Emergency WES FLAHERTY APRN [facility] ER R ARM/LEG SWELLING/PAIN [id number] 06/21/2010 20:53:00 Document Registration
--- OUTSIDE RECORDS SUMMARY | 2018-12-14 12:22 | XMS REPORT | Summary of Care ---
Author Author Virginia Dougherty APRN [facility] Unknown Address [address] [place], [place] [id number] Phone Unavailable Care Team Providers Care Emergency Room Technician Name Role Phone Dimitris Alejandra, Tarik [...] WEEKS * Quantity: 118 Refills: 11 Angelo Shansk M.D.* Started 25-Mar-2014 ActiveTriamcinolone Acetonide 55 MCG/ACT [...] Refills: 3 Donnie Blanco M.D.* Started 23-Jul-2013 Bmusbs402 GM Tube Meloxicam 15 MG Oral Tablet [...] ActiveNicotine 21-14-7 MG/24HR Transdermal Kit 21 mg qpxmqk5yv,14mgx2 wk,1vsq5ep * Quantity: 1 Refills: 0 Angelo Shanks [...] Intramuscular Suspension Administered on:14-Mar-2009 Influenza Lot #: [id number] Administered on:18-Feb-2010 Influenza Administered on:11-Feb-2011 Influenza Administered [...] 15:26 Urinalysis, reflex to Micro and Culture ([facility]) 8016 pH 5.5 (Better) Range: 5.0-7.5 [...] Problem not documented On 29-Mar-2013 15:15 Appointment; Prsicila Boone Encounter Diagnosis: Problem not documented On [...] Problem not documented On 30-Jul-2012 10:30 Appointment; Agnelo Shanks Encounter Diagnosis: Problem not documented On 26-Jul-2012 11:00
--- NOTE | 2018-12-14 12:23 | ED Psychosocial ---
General Chief Complaint: Psych/Social Disorder Stated Complaint: DRUG OVERDOSE Nursing Triage Note: Brought in by EMS after taking 3 doses of medication last night. States she took the first dose at 1500, second dose at 2000, and third dose at 2200. She took oxy IR 5 mg, metoprolol 50 mg, duloxetine 60 mg, trimethoprim 100 mg, alprazolam 0.5 mg, gabapentin 100 mg, ranitidine 150 mg, folic acid 1 mg, quetiapine 200 mg at each time. Patient states she was "probably trying to hurt myself" but does not want to hurt herself today and does not have any suicidal thoughts today. Source: patient Exam Limitations: no limitations (CLAY POLLACK MD) Source: patient (FABIEN PEMBERTON MD) History of Present Illness Date Seen by Provider: Dec 14, 2018 Time Seen by Provider: 12:18 Initial Comments The patient is a [age]-year-old white female who was brought by ambulance to the emergency room. Others had found her scarcely able to stand up. She reported that her life is quite difficult and she was feeling full of despair. Last yael she took each of her prescribed medicines 3 separate times. The most concerning of these would be the alprazolam and the QUETIAPINE. She is alert and oriented at this time. She reports she is now upset with herself for having done this. She has previously had mental health counseling but is seeing no one at this time. Her biggest complaint is that she is scarcely able to walk and has to use a walker. This largely confined her to her apartment. Timing/Duration: yesterday Associated Symptoms: other (patient states her hope was to end her miseries without pain) (CLAY POLLACK MD) Timing/Duration: just prior to arrival Associated Symptoms: anxiety (FABIEN PEMBERTON MD) Allergies and Home Medications Allergies Coded Allergies: No Known Drug Allergies (Unverified , 06/16/17) Home Medications Acetaminophen 325 Mg Tablet, 650 MG PO UD PRN for MILD PAIN/FEVER, (Reported) Albuterol Sulfate 1 Puff Puff, 2 PUFF INH Q4H PRN for SHORTNESS OF BREATH, (Reported) Alprazolam 1 Mg Tablet, 1 MG PO DAILY PRN for ANXIETY, (Reported) Amlodipine Besylate 10 Mg Tablet, 10 MG PO DAILY, (Reported) Atorvastatin Calcium 40 Mg Tablet, 40 MG PO HS, (Reported) Cefdinir 300 Mg Capsule, 300 MG PO twice a day vid Prescribed by: CLAY POLLACK on 12/14/18 152 Cetirizine HCl 10 Mg Tablet, 10 MG PO DAILY, (Reported) Cholecalciferol (Vitamin D3) 1,000 Unit Capsule, 2,000 UNIT PO DAILY, (Reported) take 2 (1,000unit) tabs Dextromethorphan HBr/Quinidine 1 Each Capsule, 1 EACH PO BID, (Reported) Docusate Sodium 100 Mg Capsule, 100 MG PO DAILY PRN for CONSTIPATION-1ST LINE, (Reported) Duloxetine HCl 30 Mg Capsule.dr, 30 MG PO DAILY, (Reported) Estrogens Conjugated 30 Gm Cr, 0.5 GM VG 2X WEEKLY @ BEDTIME, (Reported) Fesoterodine Fumarate 4 Mg Tab.sr.24h, 4 MG PO DAILY, (Reported) Folic Acid 1 Mg Tablet, 1 MG PO BID, (Reported) Lisinopril 40 Mg Tablet, 40 MG PO DAILY, (Reported) Metoclopramide HCl 10 Mg Tablet, 10 MG PO BIDAC, (Reported) Metoprolol Tartrate 50 Mg Tablet, 50 MG PO BID, (Reported) Multivitamins-Min/FA/Ginkgo 1 Each Tablet, 1 TAB PO DAILY, (Reported) Pantoprazole Sodium 40 Mg Tablet.dr, 40 MG PO DAILY, (Reported) Ranitidine HCl 150 Mg Capsule, 150 MG PO BID, (Reported) Rivastigmine 1 Each Patch.td24, 1 PATCH TD DAILY, (Reported) Trimethoprim 100 Mg Tablet, 100 MG PO HS, (Reported) Patient Home Medication List Home Medication List Reviewed: Yes (CLAY POLLACK MD) Review of Systems Constitutional: see HPI EENTM: no symptoms reported Respiratory: no symptoms reported Cardiovascular: no symptoms reported Gastrointestinal: no symptoms reported Genitourinary: no symptoms reported Musculoskeletal: muscle weakness, other (has difficulty with ambulation.) Skin: no symptoms reported Psychiatric/Neurological: No Symptoms Reported (CLAY POLLACK MD) Constitutional: no symptoms reported (FABIEN PEMBERTON MD) Past Ddxggcv-Rwhbxl-Wvnfov Hx Past Med/Social Hx: Reviewed Nursing Past Med/Soc Hx (FABIEN PEMBERTON MD) Patient Social History Alcohol Use: Denies Use Recreational Drug Use: No Smoking Status: Former Smoker Former Smoker, Quit: Jul 11, 2011 2nd Hand Smoke Exposure: No Recent Foreign Travel: No Contact w/Someone Who Travel: No Recent Infectious Disease Expo: No Recent Hopitalizations: No Physical Abuse: No Sexual Abuse: No Mistreated: No Fear: No (CLAY POLLACK MD) Immunizations Up To Date Tetanus Booster (TDap): Unknown PED Vaccines UTD: No Date of Pneumonia Vaccine: Jun 30, 2012 Date of Influenza Vaccine: Feb 21, 2017 (CLAY POLLACK MD) Seasonal Allergies Seasonal Allergies: Yes (LEAVES AND TREES) (CLAY POLLACK MD) Past Medical History Surgeries: Yes (BILAT HIP REPLACED, STENTS X9, COLON RESECTION, MACROPLASTIQUE) Coronary Stent, Gallbladder, Joint Replacement, Tubal Ligation Respiratory: No Currently Using CPAP: No Currently Using BIPAP: No Cardiac: Yes (9 STENTS) Coronary Artery Disease, Heart Attack, High Cholesterol, Hypertension Neurological: No Reproductive Disorders: No Sexually Transmitted Disease: No HIV/AIDS: No Bladder Infection, UTI-Chronic Gastrointestinal: Yes (ESOPHAGEAL STRICTURE, DIARRHEA) Gastroesophageal Reflux Musculoskeletal: Yes ("HIPS DISSINEGRATED") Arthritis, Fractures Endocrine: No HEENT: No Loss of Vision: Bilateral Hearing Impairment: Bilateral Hearing Aide Cancer: No Psychosocial: Yes Anxiety, Depression Nursing Suicide Risk Notes: took pills yesterday with the intention of hurting herself. Denies any suicidal thoughts today and states she is mad at herself for taking pills yesterday. Integumentary: No Blood Disorders: No Adverse Reaction/Blood Tranf: No (N/A) (CLAY POLLACK MD) Family Medical History Diabetes mellitus 19 MOTHER G8 BROTHER G8 SISTER Diabetes, Hypertension (CLAY POLLACK MD) Physical Exam Vital Signs - First Documented 12/14/18 12/14/18 11:40 20:30 Temp 97.9 Pulse 70 Resp 18 B/P (MAP) 110/52 (71) Pulse Ox 93 O2 Delivery Room Air (FABIEN PEMBERTON MD) Capillary Refill : Less Than 3 Seconds (CLAY POLLACK MD) Height, Weight, BMI Height: 5'4.00" Weight: 230lbs. 0.0oz. 104.204548zl; 29.4 BMI Method:Stated General Appearance: WD/WN, no apparent distress HEENT: normal ENT inspection Neck: full range of motion Respiratory: chest non-tender, lungs clear, normal breath sounds, no respiratory distress, no accessory muscle use, respiratory distress Cardiovascular: normal peripheral pulses, regular rate, rhythm, no edema, no gallop, no JVD, no murmur Gastrointestinal: normal bowel sounds, non tender, soft, no organomegaly, no pulsatile mass Extremities: normal range of motion, non-tender, normal inspection, no pedal edema, no calf tenderness, normal capillary refill, pelvis stable Neurologic/Psychiatric: director of cath lab II-XII nml as tested, no motor/sensory deficits, alert, oriented x 3, depressed affect Appearance/Memory: other (appears older than stated age) Thoughts/Hallucinations: normal thought pattern Skin: normal color, warm/dry (CLAY POLLACK MD) Progress/Results/Core Measures Results/Orders Blood Pressure Mean: 71 Progress Progress Note : Progress Note This patient had been thoroughly evaluated by Dr. Pollack prior to my assuming care of the patient. Patient was also evaluated by a psychiatric screener. It was the screws assessment that the patient needed inpatient therapy for her history of intentional drug overdose and suicide ideation. I talked with Dr. Pollack regarding disposition of this patient and it was decided to admit her to [facility] while Awaiting psychiatric placement. Dr Pollack is agreeable to this plan and accepted the p atient. (FABIEN PEMBERTON MD) Departure Communication (Admissions) 1555 poison control reported that given the medication list and the doses the only thing of interest would be Q Japanese pain and even then the 3 doses represented a low dose and other than a possible prolonged QT T interval there was not much to be concerned about. Mental health service was called and they will come to evaluate here in the ER. It is noted by [facility] that the patient has a likely urinary tract infection. (CLAY POLLACK MD) Impression Primary Impression: intentional medication overdose. Additional Impression: urinary tract infection Disposition: ADMITTED INPATIENT Condition: Unchanged Admissions Decision to Admit Reason: Admit from ER (General) (FABIEN PEMBERTON MD) Transfer Transfer Progress Notes This patient had been thoroughly evaluated by Dr. Pollack prior to my assuming care of the patient. Patient was also evaluated by a psychiatric screener. It was the screws assessment that the patient needed inpatient therapy for her hi story of intentional drug overdose and suicide ideation. I talked with Dr. Pollack regarding disposition of this patient and it was decided to admit her to [facility] while Awaiting psychiatric placement. Dr Pollack is agreeable to this plan and accepted the patient. This patient also had a urinary tract infection and was received 1 g Rocephin IV here in the emergency department. She will be placed on cefdinir 300 mg by mouth twice a day Method of Transfer: EMS (FABIEN PEMBERTON MD) Departure-Patient Inst. Referrals: [facility] [place] ([place]P) Primary Care Physician RUBI LACKEY APRN (Family) Primary Care Physician Scripts Cefdinir (Cefdinir) 300 Mg Capsule 300 MG PO twice a day vid, #14 CAP Prov: CLAY POLLACK MD 12/14/18 CLAY POLLACK MD Dec 14, 2018 12:23 FABIEN PEMBERTON MD Dec 17, 2018 10:03
[2018-12-14 12:37] LABS: BASOPHILS % (AUTO) 0 % (0-10); EOSINOPHILS # (AUTO) 0.2 10^3/uL (0.0-0.3); EOSINOPHILS % (AUTO) 2 % (0-10); HEMATOCRIT 37 % (35-52); HEMOGLOBIN 11.8 G/DL (11.5-16.0); LYMPHOCYTES # (AUTO) 1.1 X 10^3 (1.0-4.0); LYMPHOCYTES % (AUTO) 11 % (12-44); MEAN CORPUSCULAR HEMOGLOBIN 31 PG (25-34); MEAN CORPUSCULAR HGB CONC 32 G/DL (32-36); MEAN CORPUSCULAR VOLUME 96 FL (80-99); MEAN PLATELET VOLUME 9.1 FL (7.4-10.4); MONOCYTES # (AUTO) 0.8 X 10^3 (0.0-1.0); MONOCYTES % (AUTO) 8 % (0-12); NEUTROPHILS # (AUTO) 7.9 X 10^3 (1.8-7.8); NEUTROPHILS % (AUTO) 79 % (42-75); PLATELET COUNT 235 10^3/uL (130-400)
--- NOTE | 2018-12-14 12:40 | NUR ---
Spoke with poison control about the medications that the patient has taken. Poison control states to do tylenol and salicylate levels as well as EKG. The most common symptoms to see from these medications would be tachycardia, hypotension, lethargy, and QTc prolongation. Poison control states that once labs are back there is nothing from these medications that would prevent us from initiating mental health eval. Will call back in a couple hours for patient update.
[2018-12-14 12:49] LABS: CARBON DIOXIDE 22 MMOL/L (21-32); CHLORIDE 102 MMOL/L (98-107); POTASSIUM 4.5 MMOL/L (3.6-5.0); SODIUM 138 MMOL/L (135-145)
[2018-12-14 12:50] LABS: ACETAMINOPHEN < 10 UG/ML (10-30); ALANINE AMINOTRANSFERASE 22 U/L (0-55); ALBUMIN 3.9 GM/DL (3.2-4.5); ALKALINE PHOSPHATASE 146 U/L (40-136); BILIRUBIN,TOTAL 0.5 MG/DL (0.1-1.0); BUN/CREATININE RATIO 19; CALCIUM 9.1 MG/DL (8.5-10.1); CREATININE SERUM 1.66 MG/DL (0.60-1.30); GFR ESTIMATED 31; GLUCOSE 155 MG/DL (70-105)
[2018-12-14 13:02] LABS: BACTERIA,URINE LARGE /HPF; BILIRUBIN,URINE NEGATIVE (NEGATIVE); CLARITY,URINE SL CLOUDY; COLOR,URINE YELLOW; GLUCOSE, URINE (UA) NEGATIVE (NEGATIVE); KETONES,URINE NEGATIVE (NEGATIVE); LEUKOCYTE ESTERASE ,URINE 1+ (NEGATIVE); NITRITE,URINE POSITIVE (NEGATIVE); PH,URINE 5.5 (5-9); PROTEIN,URINE 1+ (NEGATIVE); SQUAMOUS EPITHELIAL CELL,UR 0-2 /HPF; WBC,URINE >100 /HPF
[2018-12-14 13:14] LABS: BENZODIAZEPINES SCREEN URINE POSITIVE (NEGATIVE); COCAINE SCREEN URINE NEGATIVE (NEGATIVE)
[2018-12-14 13:15] LABS: AMPHETAMINE SCREEN, URINE NEGATIVE (NEGATIVE); BARBITURATE SCREEN URINE NEGATIVE (NEGATIVE); CANNABINOID SCREEN, URINE NEGATIVE (NEGATIVE); METHADONE STAT NEGATIVE (NEGATIVE); METHAMPHETAMINE SCREEN URINE S NEGATIVE (NEGATIVE); OPIATE SCREEN URINE POSITIVE (NEGATIVE); OXYCODONE STAT POSITIVE (NEGATIVE); PROPOXYPHENE STAT NEGATIVE (NEGATIVE); TRICYCLIC ANTIDEPRESSANTS SCRE POSITIVE (NEGATIVE)
--- NOTE | 2018-12-14 13:31 | NUR ---
Called [facility] at this time and spoke with Cale to request screening and give patient information.
--- NOTE | 2018-12-14 14:11 | NUR ---
Received callback from Clae at [facility] who stated the screener is currently in another screening and will call when he is available.
--- NOTE | 2018-12-14 14:25 | NUR ---
Received call from poison control requesting patient update. Update given. Poison control stated they would sign off of the case at this time.
--- NOTE | 2018-12-14 15:01 | NUR ---
Received call from Yayo at [facility] who states he will be here in approximately 10 minutes to conduct screening.
[2018-12-14] MEDS ORDERED: CEFD300C3 PO (15:29)
[2018-12-14 20:30] VITALS: BP 109/66
[2018-12-14] MEDS ORDERED: LIDOCAINE 1% INJ 20 ML 20 ML VIAL INJ ONE (20:45)
[2018-12-14] MEDS ORDERED: cefTRIAXone 1,000 MG/2.86 ml vial (IM ONLY) IM SCH (20:45)
[2018-12-14] MEDS ORDERED: cefTRIAXone 1,000 MG/2.86 ml vial (IM ONLY) ONE (20:57)
[2018-12-14] MEDS ORDERED: LIDOCAINE 1% INJ 20 ML 20 ML VIAL ONE (20:57)
[2018-12-14] MEDS ORDERED: HYDROcodone/APAP 5 MG/325 MG (LORTAB) TAB PO ONE (21:45)
[2018-12-14] MEDS ORDERED: ALPRAZolam 0.25 MG (XANAX) TAB PO ONE (21:45)
[2018-12-14] MEDS ORDERED: FAMOTIDINE 20 MG (PEPCID) TABLET PO ONE (22:00)
[2018-12-15] VITALS (16 sets, daily range): BP systolic 105–186; BP diastolic 70–111
--- NOTE | 2018-12-15 02:01 | NUR ---
This RN spoke with Lidia from [facility] and gave patient report. She stated that she would call Constantin from [facility] and let him know when they have reached a decision.
--- NOTE | 2018-12-15 02:10 | NUR ---
This RN called Mabel from [facility]. Patient report is given. Mabel states that she will be in contact with [facility].
--- NOTE | 2018-12-15 02:30 | NUR ---
This RN spoke to Sharan from [facility]. She faxed paperwork for patient admit which was placed in patient's chart. Assistant Chief Engineer consulted.
[2018-12-15 04:10] LABS: BASOPHILS % (AUTO) 0 % (0-10); EOSINOPHILS # (AUTO) 0.2 10^3/uL (0.0-0.3); EOSINOPHILS % (AUTO) 3 % (0-10); HEMATOCRIT 36 % (35-52); HEMOGLOBIN 11.7 G/DL (11.5-16.0); LYMPHOCYTES # (AUTO) 1.5 X 10^3 (1.0-4.0); LYMPHOCYTES % (AUTO) 25 % (12-44); MEAN CORPUSCULAR HEMOGLOBIN 31 PG (25-34); MEAN CORPUSCULAR HGB CONC 33 G/DL (32-36); MEAN CORPUSCULAR VOLUME 94 FL (80-99); MEAN PLATELET VOLUME 8.5 FL (7.4-10.4); MONOCYTES # (AUTO) 0.6 X 10^3 (0.0-1.0); MONOCYTES % (AUTO) 10 % (0-12); NEUTROPHILS # (AUTO) 3.8 X 10^3 (1.8-7.8); NEUTROPHILS % (AUTO) 61 % (42-75); PLATELET COUNT 212 10^3/uL (130-400); RED CELL DISTRIBUTION WIDTH 14.3 % (10.0-14.5); WHITE BLOOD COUNT 6.2 10^3/uL (4.3-11.0)
[2018-12-15 05:01] LABS: CALCIUM 9.4 MG/DL (8.5-10.1); CREATININE SERUM 1.47 MG/DL (0.60-1.30); MAGNESIUM 2.6 MG/DL (1.8-2.4); PHOSPHORUS 3.7 MG/DL (2.3-4.7); POTASSIUM 4.2 MMOL/L (3.6-5.0)
--- NOTE | 2018-12-15 06:16 | Pulmonary Consultation ---
History of Present Illness History of Present Illness Date of Consultation 12/15/18 06:10 Time Seen by Provider: 07:06 Date of Admission History of Present Illness 63yo with hx of depression presented to ED via EMS after she told care worker about her taking 3 doses of her home medication the night prior to admission. Home meds include oxy IR 5 mg, metoprolol 50 mg, duloxetine 60 mg, trimethoprim 100 mg, alprazolam 0.5 mg, gabapentin 100 mg, ranitidine 150 mg, folic acid 1 mg, quetiapine 200 mg. Poison control was consulted. Pt was admitted to ICU with suicidal precautions. I am consulted for CC management. Allergies and Home Medications Allergies Coded Allergies: No Known Drug Allergies (Unverified , 06/16/17) Home Medications Acetaminophen 325 Mg Tablet, 650 MG PO UD PRN for MILD PAIN/FEVER, (Reported) Albuterol Sulfate 1 Puff Puff, 2 PUFF INH Q4H PRN for SHORTNESS OF BREATH, (Reported) Alprazolam 1 Mg Tablet, 1 MG PO DAILY PRN for ANXIETY, (Reported) Amlodipine Besylate 10 Mg Tablet, 10 MG PO DAILY, (Reported) Atorvastatin Calcium 40 Mg Tablet, 40 MG PO HS, (Reported) Cefdinir 300 Mg Capsule, 300 MG PO twice a day vid Prescribed by: CLAY POLLACK on 12/14/18 1529 Cetirizine HCl 10 Mg Tablet, 10 MG PO DAILY, (Reported) Cholecalciferol (Vitamin D3) 1,000 Unit Capsule, 2,000 UNIT PO DAILY, (Reported) take 2 (1,000unit) tabs Dextromethorphan HBr/Quinidine 1 Each Capsule, 1 EACH PO BID, (Reported) Docusate Sodium 100 Mg Capsule, 100 MG PO DAILY PRN for CONSTIPATION-1ST LINE, (Reported) Duloxetine HCl 30 Mg Capsule.dr, 30 MG PO DAILY, (Reported) Estrogens Conjugated 30 Gm Cr, 0.5 GM VG 2X WEEKLY @ BEDTIME, (Reported) Fesoterodine Fumarate 4 Mg Tab.sr.24h, 4 MG PO DAILY, (Reported) Folic Acid 1 Mg Tablet, 1 MG PO BID, (Reported) Lisinopril 40 Mg Tablet, 40 MG PO DAILY, (Reported) Metoclopramide HCl 10 Mg Tablet, 10 MG PO BIDAC, (Reported) Metoprolol Tartrate 50 Mg Tablet, 50 MG PO BID, (Reported) Multivitamins-Min/FA/Ginkgo 1 Each Tablet, 1 TAB PO DAILY, (Reported) Pantoprazole Sodium 40 Mg Tablet.dr, 40 MG PO DAILY, (Reported) Ranitidine HCl 150 Mg Capsule, 150 MG PO BID, (Reported) Rivastigmine 1 Each Patch.td24, 1 PATCH TD DAILY, (Reported) Trimethoprim 100 Mg Tablet, 100 MG PO HS, (Reported) Past Dvrpfns-Ivbfwv-Swsavm Hx Patient Social History Alcohol Use: Denies Use Recreational Drug Use: No Smoking Status: Former Smoker Former Smoker, Quit: Jul 11, 2011 2nd Hand Smoke Exposure: No Recent Foreign Travel: No Contact w/Someone Who Travel: No Recent Infectious Disease Expo: No Recent Hopitalizations: No Physical Abuse: No Sexual Abuse: No Mistreated: No Fear: No Immunizations Up To Date Tetanus Booster (TDap): Unknown PED Vaccines UTD: No Date of Pneumonia Vaccine: Apr 16, 2018 Date of Influenza Vaccine: Feb 21, 2017 Seasonal Allergies Seasonal Allergies: Yes (LEAVES AND TREES) Past Medical History Surgeries: Yes (BILAT HIP REPLACED, STENTS X9, COLON RESECTION, MACROPLASTIQUE) Coronary Stent, Gallbladder, Joint Replacement, Tubal Ligation Respiratory: No Currently Using CPAP: No Currently Using BIPAP: No Cardiac: Yes (9 STENTS) Coronary Artery Disease, Heart Attack, High Cholesterol, Hypertension Neurological: No Reproductive Disorders: No Sexually Transmitted Disease: No HIV/AIDS: No Bladder Infection, UTI-Chronic Gastrointestinal: Yes (ESOPHAGEAL STRICTURE, DIARRHEA) Gastroesophageal Reflux Musculoskeletal: Yes ("HIPS DISSINEGRATED") Arthritis, Fractures Endocrine: No HEENT: No Loss of Vision: Bilateral Hearing Impairment: Bilateral Hearing Aide Cancer: No Psychosocial: Yes Anxiety, Depression Nursing Suicide Risk Notes: took pills yesterday with the intention of hurting herself. Denies any suicidal thoughts today and states she is mad at herself for taking pills yesterday. Integumentary: No Blood Disorders: No Adverse Reaction/Blood Tranf: No (N/A) Family Medical History Diabetes mellitus 19 MOTHER G8 BROTHER G8 SISTER Diabetes, Hypertension Review of Systems Time Seen by Provider: 07:12 Constitutional: Weakness, Malaise; No: Fever, Chills, Sweats, Other Eyes: No: Pain, Vision change, Conjunctivae inflammation, Eyelid inflammation, Other, Redness ENT: Nose congestion; No: Ear pain, Ear discharge, Nose pain, Nose discharge, Mouth pain, Mouth swelling, Throat pain, Throat swelling, Other Respiratory: Cough, Dry, Shortness of breath, SOB with excertion; No: Wheezing, Hemoptysis, Pleuritic Pain, Sputum, Wheezing, Other Cardiovascular: No: Chest Pain, Palpitations, Orthopnea, Paroxysmal Noc. Dyspnea, Edema, Lt Headedness, Other Gastrointestinal: No: Nausea, Vomiting, Abdominal Pain, Diarrhea, Constipation, Melena, Hematochezia, Other Sepsis Event Evaluation Height, Weight, BMI Height: 5'4.00" Weight: 239lbs. 9.0oz. 108.796156za; 41.1 BMI Method:Stated Exam Exam Vital Signs Date Time Temp Pulse Resp B/P (MAP) Pulse Ox O2 Delivery O2 Flow Rate FiO2 12/15/18 05:00 71 21 112/74 (87) 94 Room Air 12/15/18 04:23 73 25 138/79 (98) 96 Room Air 12/15/18 03:00 73 16 136/76 (96) 92 Room Air 12/15/18 02:00 74 20 134/70 (91) 92 Room Air 12/15/18 01:44 95 Room Air 12/15/18 01:00 76 12/15/18 01:00 76 24 111/94 (100) 93 Room Air 12/15/18 00:45 78 28 130/82 (98) 94 Room Air 12/15/18 00:30 75 12 139/76 (97) 94 Room Air 12/15/18 00:27 76 12/15/18 00:18 99.1 76 18 143/79 (100) 95 Room Air 12/14/18 23:45 98.7 74 21 102/67 (79) 92 Room Air 12/14/18 20:30 99.0 88 19 109/66 (80) 94 Room Air 12/14/18 11:40 97.9 70 18 110/52 (71) 93 l I & O 12/15/18 07:00 Intake Total 30 ml Output Total 500 ml Balance -470 ml Height & Weight Height: 5'4.00" Weight: 239lbs. 9.0oz. 108.172474bp; 41.1 BMI Method:Stated General Appearance: No Apparent Distress, WD/WN, Obese HEENT: PERRL/EOMI, Normal ENT Inspection, Pharynx Normal Neck: Full Range of Motion, Non Tender, Supple Respiratory: Chest Non Tender, No Accessory Muscle Use, No Respiratory Distress, Decreased Breath Sounds Cardiovascular: Regular Rate, Rhythm Capillary Refill: Less Than 3 Seconds Gastrointestinal: normal bowel sounds, non tender, soft Extremity: Normal Capillary Refill, No Pedal Edema Neurologic/Psychiatric: Alert, Oriented x3 Skin: Normal Color, Warm/Dry Lymphatic: No Adenopathy Results Lab Laboratory Tests 12/14/18 11:41 12/15/18 04:02 Assessment/Plan Assessment/Plan Intentional medical OD 24hours prior to admission with suicidal ideation -Behavior health -Pt currently denies suicidal ideation -Poison control following UTI -Omnicef Acute renal failure -Increase IVF 125cc/hr Will transfer to 4th floor with tele and tele sitter and IVF . KENYON BASURTO DO Dec 15, 2018 06:15
[2018-12-15] MEDS ORDERED: LACTATED RINGERS 1,000 ML IV ONE (06:34)
--- NOTE | 2018-12-15 07:39 | Diagnostic Imaging Report ---
INDICATION: Suicidal ideation, ICU care. TECHNIQUE: Frontal view of the chest. COMPARISON: 06/21/2010 FINDINGS: Lung volumes are mildly low. There are linear bibasilar opacities, likely atelectasis. The cardiac silhouette is stable in size. No pleural effusion or pneumothorax is seen. IMPRESSION: Low lung volumes with bibasilar linear opacities, likely atelectasis. Dictated by: Dictated on workstation # [id number]
[2018-12-15] MEDS ORDERED: LACTATED RINGERS 1,000 ML IV SCH (08:15)
[2018-12-15] MEDS ORDERED: CEFDINIR 300 MG (OMNICEF) CAP PO SCH (09:00)
--- NOTE | 2018-12-15 11:06 | Short Stay Summary-Hospitalist ---
History of Present Illness HPI/Chief Complaint The patient is a 63-year-old white female whom I saw at the [facility] emergency room yesterday. She presented there after having been found by family in a lethargic state and unable to stand. It was revealed to her granddaughter who was the Medicaid manager respiratory care that she had taken pills. This proved to be 3 doses in sequence of her daily medications. Does primarily of concern would have been the Quetiapine, and a benzo. The [facility] screening a cane and determined that despite her having told me that she was depressed about her inability to get out of her little apartment because of physical ailments, she confessed to him that in Fact she had hoped to . He concluded that she was a risk to attempt this again and if necessary we would need to be court ordered to a facility. This was not immediately available and she was moved here while awaiting placement. Date Seen 12/15/18 Time Seen by a Provider: 11:02 Attending Physician Walker Pollack MD [facility] Referring Physician Date of Admission Dec 14, 2018 at 20:49 Home Medications & Allergies Home Medications Reviewed patient Home Medication Reconciliation performed by pharmacy medication reconciliations mathematics technician and/or nursing. Patients Allergies have been reviewed. Allergies Allergies Coded Allergies No Known Drug Allergies (Unverified06/16/17) Past Qnjdwdf-Dycsao-Auqqkh Hx Past Med/Social Hx: Reviewed Nursing Past Med/Soc Hx Patient Social History Alcohol Use: Denies Use Recreational Drug Use: No Smoking Status: Former Smoker Former Smoker, Quit: Jul 11, 2011 2nd Hand Smoke Exposure: No Recent Foreign Travel: No Contact w/other who traveled: No Recent Hopitalizations: No Recent Infectious Disease Expo: No Immunizations Up To Date Tetanus Booster (TDap): Unknown Pediatric: No Date of Pneumonia Vaccine: Apr 16, 2018 Date of Influenza Vaccine: Feb 21, 2017 Seasonal Allergies Seasonal Allergies: Yes (LEAVES AND TREES) Past Medical History Surgeries: Coronary Stent, Gallbladder, Joint Replacement, Tubal Ligation Currently Using CPAP: No Currently Using BIPAP: No Cardiac: Coronary Artery Disease, Heart Attack, High Cholesterol, Hypertension Reproductive: No Sexually Transmitted Disease: No HIV/AIDS: No Genitourinary: Bladder Infection, UTI-Chronic Gastrointestinal: Gastroesophageal Reflux Musculoskeletal: Arthritis, Fractures Loss of Vision: Bilateral Hearing Impairment: Bilateral Hearing Aide Psychosocial: Anxiety, Depression History of Blood Disorders: No Adverse Reaction to Blood Henriquez: No (N/A) Family History Diabetes mellitus 19 MOTHER G8 BROTHER G8 SISTER Diabetes, Hypertension Review of Systems Constitutional: see HPI EENTM: no symptoms reported Cardiovascular: no symptoms reported Gastrointestinal: no symptoms reported Genitourinary: no symptoms reported Musculoskeletal: joint swelling, muscle pain, muscle stiffness, muscle cramps, muscle weakness Psychiatric/Neurological: Depressed Physical Exam Physical Exam Vital Signs Vital Signs - First Documented 12/14/18 12/14/18 11:40 20:30 Temp 97.9 Pulse 70 Resp 18 B/P (MAP) 110/52 (71) Pulse Ox 93 O2 Delivery Room Air Capillary Refill : Less Than 3 Seconds Height, Weight, BMI Height: 5'4.00" Weight: 239lbs. 9.0oz. 108.483035qh; 41.1 BMI Method:Stated General Appearance: No Apparent Distress, WD/WN, Obese HEENT: PERRL/EOMI, Normal ENT Inspection, Pharynx Normal Neck: Full Range of Motion, Non Tender, Supple Respiratory: Chest Non Tender, No Accessory Muscle Use, No Respiratory Distress, Decreased Breath Sounds Cardiovascular: Regular Rate, Rhythm Gastrointestinal: Normal Bowel Sounds, Other (obesity ) Extremity: Normal Capillary Refill, No Pedal Edema Neurologic/Psychiatric: Alert, Oriented x3 Skin: Normal Color, Warm/Dry Lymphatic: No Adenopathy Results Results/Procedures Labs Laboratory Tests 12/14/18 11:41 12/15/18 04:02 Patient resulted labs reviewed. Short Stay Diagnosis Discharge Diagnosis-Short Stay Admission Diagnosis suicidal attempt. 2.incidental urinary tract infection. 3.diabetes Final Discharge Diagnosis 1.depression 2.incidental urinary tract infection. 3.diabetes Conclusion Plan AWAIT transfer to [facility] Clinical Quality Measures DVT/VTE Risk/Contraindication: Risk Factor Score Per Nursin RFS Level Per Nursing on Admit: 4+=Very High WALKER POLLACK MD Dec 15, 2018 11:06
--- NOTE | 2018-12-15 11:35 | Discharge Inst-Simple/Standard ---
Discharge Inst-Standard Patient Instructions/Follow Up Plan of Care/Instructions/FU: Arrangements have been made for a transfer to inpatient psych facility. Present medications are as listed on the discharge sequence Activity as Tolerated: Yes Discharge Diet: ADA Diet CLAY POLLACK MD Dec 15, 2018 11:35
== END 2018-12-15 14:15 | DRG 918 ==
LOC: EDUNIT# 11:36 → ER FS 11:38 → ICU 20:49
PROVIDERS: ADMIT Internal Medicine; ATTEND Internal Medicine
DX: T43.592A Poisoning by other antipsychotics and neuroleptics, intentional self-harm, initial encounter (principal); T42.4X2A Poisoning by benzodiazepines, intentional self-harm, initial encounter; T40.2X2A Poisoning by other opioids, intentional self-harm, initial encounter; T44.7X2A Poisoning by beta-adrenoreceptor antagonists, intentional self-harm, initial encounter; T43.202A Poisoning by unspecified antidepressants, intentional self-harm, initial encounter; R53.83 Other fatigue; N39.0 Urinary tract infection, site not specified; N17.9 Acute kidney failure, unspecified; F32.9 Major depressive disorder, single episode, unspecified; T37.8X2A Poisoning by other specified systemic anti-infectives and antiparasitics, intentional self-harm, initial encounter; T42.72XA Poisoning by unspecified antiepileptic and sedative-hypnotic drugs, intentional self-harm, initial encounter; T47.0X2A Poisoning by histamine H2-receptor blockers, intentional self-harm, initial encounter; F41.9 Anxiety disorder, unspecified; I10 Essential (primary) hypertension; K21.9 Gastro-esophageal reflux disease without esophagitis; E78.00 Pure hypercholesterolemia, unspecified; I25.10 Atherosclerotic heart disease of native coronary artery without angina pectoris; I25.2 Old myocardial infarction; Z87.891 Personal history of nicotine dependence; Z95.5 Presence of coronary angioplasty implant and graft
CPT/HCPCS: 36415; 71045; 80048; 80053; 80306; 80320; 80329; 81000; 83735; 84100; 85025; 87077; 87081; 87088; 87186; 93005; 96372

== ENCOUNTER → 2019-01-11 | Outpatient (CLI) | payer MEDICAID ==
[2019-01-11 12:52] LABS: CLARITY,URINE CLOUDY; COLOR,URINE YELLOW; GLUCOSE, URINE (UA) NEGATIVE (NEGATIVE); PROTEIN,URINE NEGATIVE (NEGATIVE)
[2019-01-11 12:53] LABS: BACTERIA,URINE LARGE /HPF; BILIRUBIN,URINE NEGATIVE (NEGATIVE); KETONES,URINE NEGATIVE (NEGATIVE); LEUKOCYTE ESTERASE ,URINE 1+ (NEGATIVE); NITRITE,URINE NEGATIVE (NEGATIVE); RBC,URINE 0-2 /HPF; UROBILINOGEN,URINE 0.2 MG/DL (NORMAL); WBC,URINE >100 /HPF
== END ==
LOC: RAD FS 10:52
PROVIDERS: ATTEND Urology
DX: R10.9 Unspecified abdominal pain (principal); R31.9 Hematuria, unspecified; Z87.442 Personal history of urinary calculi
CPT/HCPCS: 81000; 87077; 87088; 87186; 88112

== ENCOUNTER → 2019-01-15 | Outpatient (CLI) | payer MEDICAID ==
[2019-01-11 12:52] LABS: CLARITY,URINE CLOUDY; COLOR,URINE YELLOW; GLUCOSE, URINE (UA) NEGATIVE (NEGATIVE); PROTEIN,URINE NEGATIVE (NEGATIVE)
[2019-01-11 12:53] LABS: BACTERIA,URINE LARGE /HPF; BILIRUBIN,URINE NEGATIVE (NEGATIVE); KETONES,URINE NEGATIVE (NEGATIVE); LEUKOCYTE ESTERASE ,URINE 1+ (NEGATIVE); NITRITE,URINE NEGATIVE (NEGATIVE); RBC,URINE 0-2 /HPF; UROBILINOGEN,URINE 0.2 MG/DL (NORMAL); WBC,URINE >100 /HPF
--- NOTE | 2019-01-15 12:00 | Diagnostic Imaging Report ---
PROCEDURE: CT urinary tract, rule out kidney stone. TECHNIQUE: Multiple contiguous axial images were obtained through the abdomen and pelvis without the use of intravenous contrast. Auto Exposure Controls were utilized during the CT exam to meet ALARA standards for radiation dose reduction. INDICATION: Left flank pain with gross hematuria. COMPARISON: None FINDINGS: The lung bases demonstrate mild atelectasis/scarring. The heart is normal in size. There is coronary atherosclerosis. The liver demonstrates mild fatty infiltration. The pancreas is normal. The adrenal glands are normal. There is a punctate nonobstructing calculus in the right kidney. There is no hydronephrosis or hydroureter seen, although the pelvis is obscured by bilateral hip arthroplasties. There is a small 3 mm calculus in the left kidney which is nonobstructing. There is no hydronephrosis or hydroureter. Again, the distal ureter is not well seen due to artifact. There is a ventral hernia containing loops of small and large bowel. There is no evidence of obstruction. The aperture measures 7.3 cm in width. A smaller fat containing ventral hernia is seen in the midline superior to the first. No free fluid or free air is seen. There is moderate stool in the colon. There are multilevel degenerative changes in the lumbar spine. IMPRESSION: 1. Nonobstructing calculi in the kidneys bilaterally. No hydronephrosis or hydroureter seen. The bladder and distal ureters are obscured by hardware artifact. 2. Large ventral hernia containing bowel. No evidence of obstruction or strangulation is seen. Dictated by: Dictated on workstation # [id number]
== END ==
LOC: RAD FS 09:43
PROVIDERS: ATTEND Urology
DX: N20.0 Calculus of kidney (principal); K43.9 Ventral hernia without obstruction or gangrene
CPT/HCPCS: 74176; 81000; 87077; 87088; 87186

== ENCOUNTER → 2019-03-26 | Outpatient (CLI) | payer MEDICAID | END | disposition home or self-care (01) | LOC: PREOP 05:49 | PROVIDERS: ATTEND Surgery | DX: Z01.818 Encounter for other preprocedural examination (principal) ==

== ENCOUNTER → 2019-04-05 | Outpatient (CLI) | payer MEDICAID ==
--- NOTE | 2019-04-05 10:48 | Diagnostic Imaging Report ---
US RENAL ART DOPPLER ARACELY COMP Technique: Multi-projectional grayscale, color Doppler and spectral duplex imaging of the bilateral kidneys and renal vasculature was performed. Indication: Hypertension. Comparison: None available. FINDINGS: Right side: Right kidney is normal in size measuring 8.3 cm. There is no hydronephrosis or suspicious mass lesion. The following measurements were made for the right renal vasculature and/or as follows: Main renal artery: Color Doppler imaging shows patency of the distal right renal artery with normal low resistant waveforms. Acceleration index is normal. No elevated peak systolic velocities. The mid and proximal aspect of the main renal artery are obscured by bowel gas. Interlobular/arcuate arteries: Normal low resistance waveforms and the acceleration index is normal. PSV:Aorta : 0.4 Left side: Left kidney is normal in size measuring 9.9 cm. There is no hydronephrosis or suspicious mass lesion. The following measurements were made for the left renal vasculature and/or as follows: Main renal artery: Color Doppler imaging shows patency of the main renal artery throughout its entirety and there are low resistant waveforms present. No elevated peak systolic velocities. Interlobular/arcuate arteries: Normal low resistant arterial waveforms with normal consolidation indices. No elevated or blunted peak systolic velocities. PSV:Aorta : 0.6 Urinary bladder: The urinary bladder is normally filled with a prevoid volume of 425 mL. Post void bladder volume is 48 mL which corresponds to 11% residual. IMPRESSION: 1. No renal artery stenosis. Abnormal Parameters: PSV > 200 cm/s PSV:Aorta > 3.5 Acceleration Index < 300 cm/sec2 Acceleration time > 70 msec Dictated by: Dictated on workstation # [id number]
== END ==
LOC: RAD 08:37
PROVIDERS: ATTEND Internal Medicine Nephrology
DX: I12.9 Hypertensive chronic kidney disease with stage 1 through stage 4 chronic kidney disease, or unspecified chronic kidney disease (principal); N17.9 Acute kidney failure, unspecified; N18.3 Chronic kidney disease, stage 3 (moderate)
CPT/HCPCS: 76770; 93975

== ENCOUNTER → 2019-04-08 | Outpatient (CLI) | payer MEDICAID ==
--- NOTE | 2019-04-08 10:25 | Diagnostic Imaging Report ---
INDICATION: Right foot drop. EXAMINATION: Lumbar spine. FINDINGS: AP and lateral views of the lumbar spine show a grade 1 spondylolisthesis of L3-L4. The L3-L4, L4-L5, and L5-S1 disc spaces are severely narrowed with vacuum disc phenomena at each of the levels. IMPRESSION: Degenerative disc changes at L3-L4, L4-L5, and L5-S1. There is grade 1 spondylolisthesis at L3-L4. Dictated by: Dictated on workstation # [id number]
== END ==
LOC: RAD FS 10:05
PROVIDERS: ATTEND Nurse Practitioner
DX: M51.37 Other intervertebral disc degeneration, lumbosacral region (principal); M43.16 Spondylolisthesis, lumbar region; M21.371 Foot drop, right foot
CPT/HCPCS: 72100

== ENCOUNTER 2019-06-04 05:35 | Outpatient (CLI) | payer MEDICAID ==
[~2019-06-04] VITALS: Ht 167 cm; Wt 113.6 kg
[~2019-06-04 05:35] MED LIST changes: -TRAM50TA2 PO; -TRAZ-222 PO; +TRM50T PO; +TRZ50T PO
[2019-06-04] MEDS ORDERED: CHOL200025 PO (13:27)
[2019-06-04] MEDS ORDERED: ALPR0.5T7 PO (13:27)
[2019-06-04] MEDS ORDERED: QUET100T PO (13:27)
[2019-06-04] MEDS ORDERED: RIVA1PAT TD (13:27)
[2019-06-04] MEDS ORDERED: DULO60CA59 PO (13:27)
== END 2019-06-04 13:32 | disposition home or self-care (01) ==
LOC: PREOP 05:35
PROVIDERS: ATTEND Surgery
DX: Z01.818 Encounter for other preprocedural examination (principal)

== ENCOUNTER 2019-06-11 09:29 | Emergency (ER) | payer MEDICAID ==
[~2019-06-11] VITALS: Ht 170.1 cm; Wt 113.6 kg
[~2019-06-11 09:29] MED LIST changes: +ALPR0.5T7 PO; +CHOL200025 PO; +DULO60CA59 PO; +QUET100T PO
[2019-06-11] MEDS ORDERED: LACTATED RINGERS 1,000 ML IV ONE (10:02)
--- NOTE | 2019-06-11 10:23 | ED Abdominal Pain ---
General Chief Complaint: - Urinary Stated Complaint: SOA,BLOOD IN URINE,BACK PAIN Nursing Triage Note: TO ED PER W/C REPORTS HAS HAD BLOOD IN URINE AND FEELING SOA FOR 2 WEEKS . 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 Sepsis Screen: No Definite Risk Source of Information: Patient Exam Limitations: No Limitations History of Present Illness Date Seen by Provider: Jun 11, 2019 Time Seen by Provider: 09:51 Initial Comments Here with report of blood in her urine and feeling not well over the past couple of weeks. Does have pain in her left upper quadrant of her abdomen. Was seen at [facility] in [place] and started on antibiotics. A week later they called and stated that she needed to be on a different antibiotic due to resistance and changed it. She has been taking that but doesn't know what it is. She was here in [place] today to get upper endoscopy which was completed this morning. She thought that since she was still having the blood in her urine that she would go ahead and get checked out in this ER. Denies fever or chills. Denies diarrhea. She hasn't had some subjective shortness of air but not s ignificant. Timing/Duration: Changing Over Time, Other (weeks) Severity/Quality: Mild Location: [facility] Radiation: No Radiation Activities at Onset: None Modifying Factors: Improves With Resting Associated Symptoms: No Back Pain, No Chest Pain, No Fever/Chills; Fatigue; No Nausea/Vomiting; Shortness of Air; No Weakness Allergies and Home Medications Allergies Coded Allergies: No Known Drug Allergies (Unverified , 06/16/17) Home Medications Albuterol Sulfate 1 Puff Puff, 2 PUFF INH Q4H PRN for SHORTNESS OF BREATH, (Repo rted) Alprazolam 0.5 Mg Tablet, 0.5 MG PO BID PRN for ANXIETY, (Reported) Atorvastatin Calcium 40 Mg Tablet, 40 MG PO HS, (Reported) Cefdinir 300 Mg Capsule, 300 MG PO BID Prescribed by: GILBERTO PAUL on 06/11/19 1218 Cetirizine HCl 10 Mg Tablet, 10 MG PO DAILY, (Reported) Cholecalciferol (Vitamin D3) 2,000 Unit Tablet, 2,000 UNIT PO DAILY, (Reported) Docusate Sodium 100 Mg Capsule, 100 MG PO DAILY PRN for CONSTIPATION-1ST LINE, (Reported) Duloxetine HCl 60 Mg Capsule.dr, 60 MG PO BID, (Reported) Estrogens Conjugated 30 Gm Cr, 0.5 GM VG 2X WEEKLY @ BEDTIME, (Reported) Fesoterodine Fumarate 4 Mg Tab.sr.24h, 4 MG PO DAILY, (Reported) Lisinopril 40 Mg Tablet, 40 MG PO DAILY, (Reported) Metoprolol Tartrate 50 Mg Tablet, 50 MG PO BID, (Reported) Multivitamins-Min/FA/Ginkgo 1 Each Tablet, 1 TAB PO DAILY, (Reported) Pantoprazole Sodium 40 Mg Tablet.dr, 40 MG PO DAILY, (Reported) Quetiapine Fumarate 100 Mg Tablet, 100 MG PO HS, (Reported) Ranitidine HCl 150 Mg Capsule, 150 MG PO BID, (Reported) Rivastigmine 4.6 Mg Patch, 4.6 MG TD DAILY, (Reported) Patient Home Medication List Home Medication List Reviewed: Yes Review of Systems Review of Systems Constitutional: see HPI Respiratory: Denies Cough; Shortness of Air; Denies SOA at Rest Cardiovascular: Denies Chest Pain, Denies Edema Gastrointestinal: Abdominal Pain; Denies Diarrhea, Denies Nausea Genitourinary: See HPI, Hematuria; Denies Pain Musculoskeletal: no symptoms reported Skin: no symptoms reported Psychiatric/Neurological: No Symptoms Reported All Other Systems Reviewed Negative Unless Noted: Yes Past Plkphtz-Hqpayh-Gzibxr Hx Past Med/Social Hx: Reviewed Nursing Past Med/Soc Hx Patient Social History Alcohol Use: Denies Use Recreational Drug Use: No Smoking Status: Never a Smoker Former Smoker, Quit: Jul 11, 2011 2nd Hand Smoke Exposure: No Recent Foreign Travel: No Contact w/Someone Who Travel: No Recent Infectious Disease Expo: No Recent Hopitalizations: No Immunizations Up To Date Tetanus Booster (TDap): Unknown PED Vaccines UTD: No Date of Pneumonia Vaccine: Feb 18, 2019 Date of Influenza Vaccine: Feb 18, 2019 Seasonal Allergies Seasonal Allergies: Yes (LEAVES AND TREES) Past Medical History Surgeries: Yes (R THR X2, L THR, STENTS X9, COLON RESECTION, MACROPLASTIQUE) Coronary Stent, Gallbladder, Joint Replacement, Tubal Ligation Respiratory: No Currently Using CPAP: No Currently Using BIPAP: No Cardiac: Yes (9 STENTS) Coronary Artery Disease, Heart Attack, High Cholesterol, Hypertension Neurological: No Reproductive Disorders: No Sexually Transmitted Disease: No HIV/AIDS: No Genitourinary: Yes (INCONTINENCY) Bladder Infection, UTI-Chronic Gastrointestinal: Yes (ESOPHAGEAL STRICTURE) Gastroesophageal Reflux, Chronic Diarrhea Musculoskeletal: Yes ("HIPS DISSINEGRATED") Arthritis, Fractures Endocrine: No HEENT: No (GLASSES, DENTURES) Loss of Vision: Denies Hearing Impairment: Denies, Bilateral Hearing Aide Cancer: No Psychosocial: Yes Anxiety, Depression Integumentary: No Blood Disorders: No Adverse Reaction/Blood Tranf: No (HAS HAD BLOOD WITH NO REACTION) Family Medical History Reviewed Nursing Family Hx Diabetes mellitus 19 MOTHER G8 BROTHER G8 SISTER Diabetes, Hypertension Physical Exam Vital Signs Vital Signs - First Documented 06/11/19 09:43 Temp 36.3 Pulse 87 Resp 18 B/P (MAP) 125/87 (100) Pulse Ox 95 O2 Delivery Room Air Capillary Refill : Less Than 3 Seconds Height/Weight/BMI Height: 5'4.00" Weight: 239lbs. 9.0oz. 108.316910ef; 39.00 BMI Method:Stated General Appearance: WD/WN, no apparent distress HEENT: PERRL/EOMI, pharynx normal Neck: full range of motion, supple Respiratory: lungs clear, normal breath sounds Cardiovascular: regular rate, rhythm, no murmur Peripheral Pulses: 2+ Dorsalis Pedis (R), 2+ Left Dors-Pedis (L), 2+ Radial Pulses (R), 2+ Radial Pulses (L) Gastrointestinal: soft, tenderness (left upper quadrant.) Extremities: non-tender, normal inspection Back: normal inspection, no CVA tenderness, no vertebral tenderness Neurologic/Psychiatric: alert, oriented x 3 Skin: normal color, warm/dry Progress/Results/Core Measures Results/Orders Lab Results Laboratory Tests Test 06/11/19 09:46 06/11/19 10:17 Range/Units Urine Color VANESSA H Urine Clarity CLEAR Urine pH 6.0 5-9 Urine Specific [place] 1.020 1.016-1.022 Urine Protein TRACE NEGATIVE Urine Glucose (UA) NEGATIVE NEGATIVE Urine Ketones NEGATIVE NEGATIVE Urine Nitrite NEGATIVE NEGATIVE Urine Bilirubin NEGATIVE NEGATIVE Urine Urobilinogen 0.2 < = 1.0 MG/DL Urine Leukocyte Esterase 1+ H NEGATIVE Urine RBC (Auto) 3+ H NEGATIVE Urine RBC 25-50 H /HPF Urine WBC 5-10 H /HPF Urine Squamous Epithelial Cells 2-5 /HPF Urine Crystals NONE /LPF Urine Bacteria FEW H /HPF Urine Casts NONE /LPF Urine Mucus NEGATIVE /LPF Urine Culture Indicated YES White Blood Count 7.8 4.3-11.0 10^3/uL Red Blood Count 4.17 L 4.35-5.85 10^6/uL Hemoglobin 12.8 11.5-16.0 G/DL Hematocrit 39 35-52 % Mean Corpuscular Volume 94 80-99 FL Mean Corpuscular Hemoglobin 31 25-34 PG Mean Corpuscular Hemoglobin Concent 33 32-36 G/DL Red Cell Distribution Width 14.6 H 10.0-14.5 % Platelet Count 185 130-400 10^3/uL Mean Platelet Volume 8.6 7.4-10.4 FL Neutrophils (%) (Auto) 85 H 42-75 % Lymphocytes (%) (Auto) 7 L 12-44 % Monocytes (%) (Auto) 6 0-12 % Eosinophils (%) (Auto) 1 0-10 % Basophils (%) (Auto) 0 0-10 % Neutrophils # (Auto) 6.7 1.8-7.8 X 10^3 Lymphocytes # (Auto) 0.6 L 1.0-4.0 X 10^3 Monocytes # (Auto) 0.5 0.0-1.0 X 10^3 Eosinophils # (Auto) 0.1 0.0-0.3 10^3/uL Basophils # (Auto) 0.0 0.0-0.1 10^3/uL Neutrophils % (Manual) 83 % Lymphocytes % (Manual) 2 % Monocytes % (Manual) 7 % Eosinophils % (Manual) 1 % Basophils % (Manual) 1 % Band Neutrophils 6 % Anisocytosis SLIGHT Sodium Level 139 135-145 MMOL/L Potassium Level 4.1 3.6-5.0 MMOL/L Chloride Level 107 98-107 MMOL/L Carbon Dioxide Level 18 L 21-32 MMOL/L Anion Gap 14 5-14 MMOL/L Blood Urea Nitrogen 31 H 7-18 MG/DL Creatinine 1.55 H 0.60-1.30 MG/DL Estimat Glomerular Filtration Rate 34 BUN/Creatinine Ratio 20 Glucose Level 143 H 70-105 MG/DL Calcium Level 9.7 8.5-10.1 MG/DL Corrected Calcium 9.4 8.5-10.1 MG/DL Total Bilirubin 0.8 0.1-1.0 MG/DL Aspartate Amino Transf (AST/SGOT) 17 5-34 U/L Alanine Aminotransferase (ALT/SGPT) 25 0-55 U/L Alkaline Phosphatase 79 40-136 U/L C-Reactive Protein High Sensitivity 0.51 H 0.00-0.50 MG/DL Total Protein 7.2 6.4-8.2 GM/DL Albumin 4.4 3.2-4.5 GM/DL Amylase Level 20 L 25-125 U/L Lipase 13 8-78 U/L Micro Results Microbiology 06/11/19 Urine Culture - Final, Complete 3 or more isolates My Orders Orders - GILBERTO PAUL MD Amylase (06/11/19 10:02) Cbc With Automated Diff (06/11/19 10:02) Comprehensive Metabolic Panel (06/11/19 10:02) Hs C Reactive Protein (06/11/19 10:02) Lipase (06/11/19 10:02) Ua Culture If Indicated (06/11/19 10:02) Ed Iv/Invasive Line Start (06/11/19 10:02) Lactated Ringers (Lr 1000 Ml Iv Solution (06/11/19 10:02) Manual Differential (06/11/19 10:17) Urine Culture (06/11/19 09:46) Ct Abd/Pelvis Wo(Kidney Stone) (06/11/19 10:56) Ceftriaxone For Iv Use (Rocephin For I (06/11/19 12:15) Medications Given in ED Vital Signs/I&O 06/11/19 06/11/19 09:43 12:33 Temp 36.3 36.3 Pulse 87 80 Resp 18 18 B/P (MAP) 125/87 (100) 120/71 (100) Pulse Ox 95 92 O2 Delivery Room Air Room Air Blood Pressure Mean: 100 Progress Progress Note : Progress Note Seen and evaluated. IV, labs, UA, LR 1 L bolus. Monitor patient. 1055: CT abdomen and pelvis without contrast ordered as her creatinine is slightly elevated. She also has blood in her urine. We'll evaluate for obstruction. Monitor patient. 1214: CT complete. UA does show urinary tract infection still. Historically she has Escherichia coli that is resistant to Bactrim which she is currently on trimethoprim. We will go ahead and initiate Rocephin 1 g IV and continue outpatient with cefdinir as she's had 3 weeks of persistent urinary tract infection. Discharged home with return precautions. Patient verbalize understanding instructions and agreement with plan. I did discuss with her about keeping stools soft and we will initiate MiraLAX as well outpatient. Diagnostic Imaging Diagonstic Imaging: CT Plain Films/CT/US/NM/MRI: abdomen, pelvis Comments [facility] [place], [place] NAME: PATRICIA BREWER [facility] REC#: [id number] PT STATUS: REG ER : 1955 PHYSICIAN: GILBERTO PAUL MD ADMIT DATE: 06/11/19/ER Draft Date of Exam:06/11/19 CT ABD/PELVIS WO(KIDNEY STONE) EXAMINATION: CT Abdomen Pelvis without contrast. TECHNIQUE: Multiple contiguous axial images were obtained through the abdomen and pelvis without the use of intravenous contrast. All CT scans use one or more of the following dose optimizing techniques: automated exposure control, MA and/or KvP adjustment based on a patient size and exam type, or iterative reconstruction. HISTORY: Blood in urine. COMPARISON: 01/15/2019 FINDINGS: There is septal line thickening and groundglass in the lung bases, right greater than left in keeping with pulmonary edema. Coronary arteries are calcified and there is fat deposition in the interventricular septum. This can be seen with prior infarcts with fatty metaplasia. The liver is normal without focal lesion. No biliary ductal dilation is seen. There is a trace amount of pneumobilia which is likely related to prior sphincterotomy. Gallbladder is normal. Pancreas is normal. Spleen is normal. Adrenal glands are normal. Tiny bilateral renal stones are seen which are nonobstructing. No ureteral calculi are seen. Urinary bladder is mostly obscured by streak artifact. There is no hydronephrosis. Urinary bladder is normal. There are no dilated loops of large or small bowel. No obstruction or inflammation. No free fluid or air. No abdominal or pelvic lymphadenopathy. Aorta is normal in caliber without aneurysm. There is a bowel containing ventral abdominal hernia as well as a smaller fat-containing ventral hernia. There are no suspicious osseus lesions. There are bilateral total hip arthroplasties and degenerative changes in the spine. IMPRESSION: 1. Tiny nonobstructing renal stones bilaterally. Urinary bladder and distal ureters are obscured by streak artifact but no ureteral stones are seen. 2. Mild pulmonary edema. 3. Large bowel containing ventral abdominal hernia and a second smaller fat-containing ventral hernia. Dictated on workstation # [id number] Dict: 06/11/19 1144 Trans: 06/11/19 1153 [id number] Interpreted by: ELOY COLIN MD Electronically signed by: Departure Impression Primary Impression: Urinary tract infection Qualified Codes: N30.01 - Acute cystitis with hematuria Additional Impressions: Constipation Qualified Codes: K59.00 - Constipation, unspecified Abdominal hernia without obstruction and without gangrene Qualified Codes: K43.9 - Ventral hernia without obstruction or gangrene Disposition: HOME, SELF-CARE Condition: Improved Departure-Patient Inst. Decision time for Depature: 12:16 Referrals: [facility] (PCP) Primary Care Physician RUBI LACKEY APRN (Family) Primary Care Physician OLEG COUGHLIN MD Patient Instructions: Abdominal Hernia (DC), Constipation in Adults, Urinary Tract Infection, Adult (DC) Add. Discharge Instructions: All discharge instructions reviewed with patient and/or family. Voiced understanding. Take medications as directed. You may stop the trimethoprim and start the new antibiotic. Follow-up with your in a few days for recheck. You should follow-up with Dr. Coughlin when he comes back into town. Return for worse pain, fever, vomiting, weakness, breathing problems or other concerns as needed. Drink plenty of fluids. Scripts Cefdinir (Cefdinir) 300 Mg Capsule 300 MG PO BID, #10 CAP 0 Refills Prov: GILBERTO PAUL MD 06/11/19 GILBERTO PAUL MD Jun 11, 2019 10:23
[2019-06-11 10:26] LABS: BASOPHILS % (AUTO) 0 % (0-10); EOSINOPHILS # (AUTO) 0.1 10^3/uL (0.0-0.3); EOSINOPHILS % (AUTO) 1 % (0-10); HEMATOCRIT 39 % (35-52); HEMOGLOBIN 12.8 G/DL (11.5-16.0); LYMPHOCYTES # (AUTO) 0.6 X 10^3 (1.0-4.0); LYMPHOCYTES % (AUTO) 7 % (12-44); MEAN CORPUSCULAR HEMOGLOBIN 31 PG (25-34); MEAN CORPUSCULAR HGB CONC 33 G/DL (32-36); MEAN CORPUSCULAR VOLUME 94 FL (80-99); MEAN PLATELET VOLUME 8.6 FL (7.4-10.4); MONOCYTES # (AUTO) 0.5 X 10^3 (0.0-1.0); MONOCYTES % (AUTO) 6 % (0-12); NEUTROPHILS # (AUTO) 6.7 X 10^3 (1.8-7.8); NEUTROPHILS % (AUTO) 85 % (42-75); PLATELET COUNT 185 10^3/uL (130-400); RED CELL DISTRIBUTION WIDTH 14.6 % (10.0-14.5); WHITE BLOOD COUNT 7.8 10^3/uL (4.3-11.0)
[2019-06-11 10:27] LABS: BILIRUBIN,URINE NEGATIVE (NEGATIVE); CLARITY,URINE CLEAR; COLOR,URINE AMBER; GLUCOSE, URINE (UA) NEGATIVE (NEGATIVE); KETONES,URINE NEGATIVE (NEGATIVE); LEUKOCYTE ESTERASE ,URINE 1+ (NEGATIVE); NITRITE,URINE NEGATIVE (NEGATIVE); PROTEIN,URINE TRACE (NEGATIVE)
[2019-06-11 10:35] LABS: RBC,URINE 25-50 /HPF
[2019-06-11 10:36] LABS: BACTERIA,URINE FEW /HPF
[2019-06-11 10:44] LABS: ALBUMIN 4.4 GM/DL (3.2-4.5); BILIRUBIN,TOTAL 0.8 MG/DL (0.1-1.0); CALCIUM 9.7 MG/DL (8.5-10.1); CREATININE SERUM 1.55 MG/DL (0.60-1.30); POTASSIUM 4.1 MMOL/L (3.6-5.0); TOTAL PROTEIN 7.2 GM/DL (6.4-8.2)
[2019-06-11 10:52] LABS: ANISOCYTOSIS SLIGHT; BAND NEUTROPHILS 6 %; BASOPHILS % (MANUAL) 1 %; EOSINOPHILS % (MANUAL) 1 %; LYMPHOCYTES % (MANUAL) 2 %; MONOCYTES % (MANUAL) 7 %; NEUTROPHILS % (MANUAL) 83 %
--- NOTE | 2019-06-11 11:54 | Diagnostic Imaging Report ---
EXAMINATION: CT Abdomen Pelvis without contrast. TECHNIQUE: Multiple contiguous axial images were obtained through the abdomen and pelvis without the use of intravenous contrast. All CT scans use one or more of the following dose optimizing techniques: automated exposure control, MA and/or KvP adjustment based on a patient size and exam type, or iterative reconstruction. HISTORY: Blood in urine. COMPARISON: 01/15/2019 FINDINGS: There is septal line thickening and groundglass in the lung bases, right greater than left in keeping with pulmonary edema. Coronary arteries are calcified and there is fat deposition in the interventricular septum. This can be seen with prior infarcts with fatty metaplasia. The liver is normal without focal lesion. No biliary ductal dilation is seen. There is a trace amount of pneumobilia which is likely related to prior sphincterotomy. Gallbladder is normal. Pancreas is normal. Spleen is normal. Adrenal glands are normal. Tiny bilateral renal stones are seen which are nonobstructing. No ureteral calculi are seen. Urinary bladder is mostly obscured by streak artifact. There is no hydronephrosis. Urinary bladder is normal. There are no dilated loops of large or small bowel. No obstruction or inflammation. No free fluid or air. No abdominal or pelvic lymphadenopathy. Aorta is normal in caliber without aneurysm. There is a bowel containing ventral abdominal hernia as well as a smaller fat-containing ventral hernia. There are no suspicious osseus lesions. There are bilateral total hip arthroplasties and degenerative changes in the spine. IMPRESSION: 1. Tiny nonobstructing renal stones bilaterally. Urinary bladder and distal ureters are obscured by streak artifact but no ureteral stones are seen. 2. Mild pulmonary edema. 3. Large bowel containing ventral abdominal hernia and a second smaller fat-containing ventral hernia. Dictated by: Dictated on workstation # [id number]
[2019-06-11] MEDS ORDERED: cefTRIAXone FOR IV USE 1,000 MG in WATER (STERILE) FOR INJECTION 10 ML IV ONE (12:15)
[2019-06-11] MEDS ORDERED: CEFD300C3 PO (12:18)
[2019-06-11 12:33] VITALS: BP 120/71
== END 2019-06-11 12:33 | disposition home or self-care (01) ==
LOC: ER 09:29 → EDUNIT# 09:29 → ER 12:33
DX: N39.0 Urinary tract infection, site not specified (principal); K59.00 Constipation, unspecified; K43.9 Ventral hernia without obstruction or gangrene; I10 Essential (primary) hypertension; I25.2 Old myocardial infarction; E78.00 Pure hypercholesterolemia, unspecified; I25.10 Atherosclerotic heart disease of native coronary artery without angina pectoris; F41.9 Anxiety disorder, unspecified; F32.9 Major depressive disorder, single episode, unspecified; K21.9 Gastro-esophageal reflux disease without esophagitis; Z87.440 Personal history of urinary (tract) infections; Z87.891 Personal history of nicotine dependence; Z95.5 Presence of coronary angioplasty implant and graft; Z98.51 Tubal ligation status; Z96.643 Presence of artificial hip joint, bilateral
CPT/HCPCS: 36415; 74176; 80053; 81000; 82150; 83690; 85007; 85027; 86141; 87088

== ENCOUNTER → 2019-07-23 | Outpatient (CLI) | payer MEDICAID ==
[~2019-07-23] MED LIST changes: +DCS100C PO; -DOCU-244 PO; -TRAZ-190 PO; +TRAZ-227 PO
--- NOTE | 2019-07-23 11:42 | Diagnostic Imaging Report ---
INDICATION: Intermittent flank pain, hematuria. TECHNIQUE: 2 supine view of the abdomen 10:44 AM CORRELATION STUDY: None FINDINGS: Large amount of stool throughout the colon. No evidence for high degree bowel obstruction or large fecal impaction. Surgical changes suture line left mid abdomen. Questionable calcification left renal silhouette which a small stone not excluded. No definitive calcification over the right renal silhouette. No definitive calcification along the expected course of either ureter. Calcification of the pelvis likely largely phleboliths. Rightward curvature of the lumbar spine. Postop changes of the bilateral hips and right hemipelvis. IMPRESSION: 1. Large amount of overlying bowel gas and stool significantly obscures detail for potential nephrolithiasis. Question of a small stone over the left kidney. 2. Multiple calcifications in the pelvis likely phleboliths. Possibility of distal ureteral stone would be difficult to exclude. Dictated by: Dictated on workstation # [id number]
--- NOTE | 2019-07-23 12:37 | Diagnostic Imaging Report ---
CT ABDOMEN/PELVIS WO TECHNIQUE: Unenhanced CT imaging of the abdomen and pelvis was performed. 2-D reformats are created and submitted for interpretation. Automatic exposure controls were utilized to optimize patient dose. INDICATION: Gross hematuria. History of renal stones. COMPARISON: CT abdomen and pelvis of 06/11/2019. FINDINGS: Evaluation of the abdominal viscera is mildly limited without contrast. Lower chest: The lung bases are clear. No pericardial or pleural effusion. Peritoneum: No free intraperitoneal air or fluid. Liver and biliary system: Unenhanced liver is normal. The gallbladder is likely surgically absent. No biliary duct dilatation. Spleen and Pancreas: Spleen is normal. Unenhanced pancreas is grossly normal. Adrenals: Normal. tract: Punctate 2 mm nonobstructing bilateral renal calculi are unchanged. No ureteral calculi. Calcification at the left renal hilum is vascular in nature. No obstructive uropathy. Assessment of the urinary bladder is limited due to streak artifact. Uterus and ovaries are also obscured. GI tract: Stomach is filled with fluid, and there is no wall thickening. Benign intramural lipoma within the second portion of the duodenum measuring 2.2 x 1.4 cm is stable. No bowel obstruction. Prior small bowel to small bowel anastomosis in the left upper quadrant. Large ventral hernia through a midline defect within the rectus abdominis contains loops of transverse colon and small bowel but no features of strangulation. No pericolonic inflammatory changes. Appendix is not seen with certainty, but there are no features that would suggest acute appendicitis. Vasculature and Lymph nodes: Normal caliber aorta has extensive atherosclerotic plaquing present. No abdominal or pelvic lymphadenopathy. Musculoskeletal: No concerning osseous lesion. IMPRESSION: 1. Punctate nonobstructing bilateral renal calculi are unchanged. No hydronephrosis or ureteral calculi. 2. Assessment of the urinary bladder is limited due to streak artifact from bilateral hip arthroplasty. 3. Large bowel containing ventral abdominal wall hernia remains unchanged. No bowel obstruction or strangulation. Dictated by: Dictated on workstation # [id number]
== END ==
LOC: RAD FS 10:30
PROVIDERS: ATTEND Urology
DX: N20.0 Calculus of kidney (principal); K43.9 Ventral hernia without obstruction or gangrene
CPT/HCPCS: 74018; 74176

== ENCOUNTER → 2019-12-10 | Outpatient (CLI) | payer MEDICARE, MEDICAID ==
[~2019-12-10] MED LIST changes: -OXYC-529 PO; +OXYC5TAB96 PO
== END ==
LOC: CARD 13:44
PROVIDERS: ATTEND Internal Medicine Cardiovascular Disease
DX: I11.9 Hypertensive heart disease without heart failure (principal); I25.10 Atherosclerotic heart disease of native coronary artery without angina pectoris; E78.5 Hyperlipidemia, unspecified
CPT/HCPCS: 93306

== ENCOUNTER → 2019-12-18 | Outpatient (CLI) | payer MEDICARE, MEDICAID ==
[~2019-12-18] MED LIST changes: +CATHETER FLUSH 10 ML SYR IV PRN; +REGADENOSON 0.4 MG/5 ML SYR (LEXISCAN) IV ONE
[2019-12-18 13:31] VITALS: BP 119/81
--- NOTE | 2019-12-19 09:17 | Cardiology Stress Test Report ---
Stress Test Report Date of Procedure/Referring: Date of Procedure: Dec 19, 2019 PCP Kirby Angelo MD Admitting Physician [place] Indications: Coronary artery disease Baseline Heart Rate: 103 Baseline Blood Pressure: Blood Pressure Systolic: 119 Blood Pressure Diastolic: 81 Baseline Vitals Vital Signs Date Time Temp Pulse Resp B/P (MAP) Pulse Ox O2 Delivery O2 Flow Rate FiO2 12/18/19 13:31 106 119/81 (94) 98 Baseline EKG: Baseline EKG: sinus tachycardia, first-degree AV block Summary After explaining the procedure to the patient, she signed a consent and then brought to the stress nuclear laboratory. Patient received 0.4 mg Lexiscan for stress test, ECG, heart rate and blood pressure were monitored continuously. Resting and stress dose of radio tracer were injected, imaging was acquired and reviewed in short axis, horizontal long axis and vertical long axis views. TID: 0.92 SSS: 5 SDS: 5 EF: 65 1. Patient tolerated Lexiscan well 2. Extracardiac attenuation, there is mild decreased uptake involving the inferoapical segment with mild reversibility. No significant ischemia or infarction was noted 3. Normal left ventricular size, EF 65 percent 4. Baseline sinus tachycardia persisted during test KIRBY ANGELO MD Dec 19, 2019 09:17
== END ==
LOC: CARD 11:03
PROVIDERS: ATTEND Internal Medicine Cardiovascular Disease
DX: I25.10 Atherosclerotic heart disease of native coronary artery without angina pectoris (principal); I10 Essential (primary) hypertension; E78.5 Hyperlipidemia, unspecified
CPT/HCPCS: 78452; 93017

== ENCOUNTER → 2020-01-30 | Outpatient (CLI) | payer MEDICARE, MEDICAID ==
[~2020-01-30] MED LIST changes: -CATHETER FLUSH 10 ML SYR IV PRN; -PANT40TA3 PO; +PANT40TA52 PO; -REGADENOSON 0.4 MG/5 ML SYR (LEXISCAN) IV ONE
--- NOTE | 2020-01-30 15:14 | Diagnostic Imaging Report ---
INDICATION: Shortness of breath. COMPARISON: Exam compared with chest radiograph from 12/15/2018. Also compared with an exam of 01/23/2006. FINDINGS: Mediastinal contour is prominent in the right paratracheal and perihilar distribution exaggerated by rightward rotation and unchanged from the remote comparison studies. The heart size is mildly enlarged. There is borderline prominence of the upper lobe pulmonary veins but no laurie edema or pneumonia. IMPRESSION: Stable chronic mediastinal contour. Upper limits heart size and borderline vascular congestion but no focal pneumonia or overt edema, and no acute pleural pathology. Dictated by: Dictated on workstation # [id number]
== END ==
LOC: RAD FS 14:35
PROVIDERS: ATTEND Nurse Practitioner Family
DX: J42 Unspecified chronic bronchitis (principal)
CPT/HCPCS: 71046

== ENCOUNTER 2020-01-31 09:38 | Emergency (ER) | payer MEDICARE, MEDICAID ==
[~2020-01-31] VITALS: Ht 170.2 cm; Wt 104.3 kg
--- NOTE | 2020-01-31 10:08 | ED General ---
General Chief Complaint: General Problems/Pain Stated Complaint: ABNORMAL LAB RESULTS Nursing Triage Note: Patient reports she saw her PCP yesterday for generalized weakness, fatigue, and shortness of breath for 3 weeks. She states she had lab drawn yesterday and told to come to the ED today for abnormal lab results. She states the result was 5.7, but unable to remember name of lab result. Nursing Sepsis Screen: No Definite Risk Source of Information: Patient, Old Records, RN/MD, RN Notes Reviewed Exam Limitations: No Limitations History of Present Illness Date Seen by Provider: Jan 31, 2020 Time Seen by Provider: 09:50 Initial Comments This patient is a 64-year-old female presents to the emergency department with a complaint of fatigue. She states that she had outpatient labs yesterday and was advised to come to the emergency department today due to an abnormal lab level. Patient is unsure exactly which lab she was talking about. Labs were done in outpatient clinic. Nursing staff is trying to obtain clinic information to call and find out which lab was abnormal. Patient appears to have pale skin concerning for possible hypovolemia./Anemia. Patient states that she's been having hematuria for about one year and is followed by urology for the same. We'll do medical evaluation treatment is needed. Timing/Duration: 1 Day Severity: Moderate Associated Systoms: Weakness Allergies and Home Medications Allergies Coded Allergies: No Known Drug Allergies (Unverified , 06/16/17) Home Medications Albuterol Sulfate 1 Puff Puff, 2 PUFF INH Q4H PRN for SHORTNESS OF BREATH, (Reported) Alprazolam 0.5 Mg Tablet, 0.5 MG PO BID PRN for ANXIETY, (Reported) Atorvastatin Calcium 40 Mg Tablet, 40 MG PO HS, (Reported) Cefdinir 300 Mg Capsule, 300 MG PO BID Prescribed by: GILBERTO PAUL on 06/11/19 1218 Cetirizine HCl 10 Mg Tablet, 10 MG PO DAILY, (Reported) Cholecalciferol (Vitamin D3) 2,000 Unit Tablet, 2,000 UNIT PO DAILY, (Reported) Docusate Sodium 100 Mg Capsule, 100 MG PO DAILY PRN for CONSTIPATION-1ST LINE, (Reported) Duloxetine HCl 60 Mg Capsule.dr, 60 MG PO BID, (Reported) Estrogens Conjugated 30 Gm Cr, 0.5 GM VG 2X WEEKLY @ BEDTIME, (Reported) Fesoterodine Fumarate 4 Mg Tab.sr.24h, 4 MG PO DAILY, (Reported) Lisinopril 40 Mg Tablet, 40 MG PO DAILY, (Reported) Metoprolol Tartrate 50 Mg Tablet, 50 MG PO BID, (Reported) Multivitamins-Min/FA/Ginkgo 1 Each Tablet, 1 TAB PO DAILY, (Reported) Pantoprazole Sodium 40 Mg Tablet.dr, 40 MG PO DAILY, (Reported) Quetiapine Fumarate 100 Mg Tablet, 100 MG PO HS, (Reported) Ranitidine HCl 150 Mg Capsule, 150 MG PO BID, (Reported) Rivastigmine 4.6 Mg Patch, 4.6 MG TD DAILY, (Reported) Patient Home Medication List Home Medication List Reviewed: Yes Review of Systems Review of Systems Constitutional: No no symptoms reported, No see HPI, No chills, No diaphoresis, No dizziness, No fever, No malaise; weakness; No weight gain, No weight loss, No other EENTM: No see HPI, No no symptoms reported, No ear discharge, No hearing loss, No ear pain, No blurred vision, No double vision, No eye pain, No tearing, No vision loss, No dental problems, No hoarseness, No mouth pain, No mouth swelling, No epistaxis, No nose congestion, No nose pain, No throat pain, No throat swelling, No other Respiratory: No no symptoms reported, No see HPI, No cough, No dyspnea on exert ion, No hemoptysis, No orthopnea, No phlegm, No short of breath, No stridor, No wheezing, No other Cardiovascular: No no symptoms reported, No see HPI, No chest pain, No edema, No Hx of Intervention, No palpitations, No syncope, No vascular heart diseas, No other Gastrointestinal: No RUQ, No LUQ, No RLQ, No LLQ, No no symptoms reported, No see HPI, No abdominal pain, No constipation, No diarrhea, No dysphagia, No hematemesis, No heartburn, No jaundice, No loss of appetite, No melena, No nausea, No vomiting, No other Musculoskeletal: No no symptoms reported, No see HPI, No back pain, No gout, No joint pain, No joint swelling, No muscle pain, No muscle stiffness, No muscle cramps, No muscle twitching, No muscle weakness, No neck pain, No other Skin: No no symptoms reported, No see HPI, No change in color, No change in hair/nails, No dryness, No hx of skin cancer, No lesions, No lumps, No pruritus, No rash, No other Hematologic/Lymphatic: Denies No Symptoms Reported; See HPI; Denies Anemia, Denies Blood Clots, Denies Easy Bleeding, Denies Easy Bruising, Denies Swollen Glands, Denies Other All Other Systems Reviewed Negative Unless Noted: Yes Past Yzgdptf-Sbpsct-Jadgur Hx Patient Social History Alcohol Use: Denies Use Recreational Drug Use: No (remote history) Smoking Status: Former Smoker Former Smoker, Quit: Jul 11, 2011 2nd Hand Smoke Exposure: No Recent Foreign Travel: No Contact w/Someone Who Travel: No Recent Infectious Disease Expo: No Recent Hopitalizations: No Physical Abuse: No Sexual Abuse: No Mistreated: No Fear: No Immunizations Up To Date Tetanus Booster (TDap): Unknown PED Vaccines UTD: No Date of Pneumonia Vaccine: Feb 18, 2019 Date of Influenza Vaccine: Feb 18, 2019 Seasonal Allergies Seasonal Allergies: Yes (LEAVES AND TREES) Past Medical History Surgeries: Yes (R THR X2, L THR, STENTS X9, COLON RESECTION, MACROPLASTIQUE) Coronary Stent, Gallbladder, Joint Replacement, Tubal Ligation Respiratory: No Currently Using CPAP: No Currently Using BIPAP: No Cardiac: Yes (9 STENTS) Coronary Artery Disease, Heart Attack, High Cholesterol, Hypertension Neurological: No Reproductive Disorders: No Sexually Transmitted Disease: No HIV/AIDS: No Genitourinary: Yes (INCONTINENCY) Bladder Infection, UTI-Chronic Gastrointestinal: Yes (ESOPHAGEAL STRICTURE) Gastroesophageal Reflux, Chronic Diarrhea Musculoskeletal: Yes ("HIPS DISSINEGRATED") Arthritis, Fractures Endocrine: No HEENT: No (GLASSES, DENTURES) Loss of Vision: Denies Hearing Impairment: Denies, Bilateral Hearing Aide Cancer: No Psychosocial: Yes Anxiety, Depression Integumentary: No Blood Disorders: No Adverse Reaction/Blood Tranf: No (HAS HAD BLOOD WITH NO REACTION) Family Medical History Diabetes mellitus 19 MOTHER G8 BROTHER G8 SISTER Diabetes, Hypertension Physical Exam Vital Signs Vital Signs - First Documented 01/31/20 09:47 Temp 36.3 Pulse 81 Resp 20 B/P (MAP) 100/60 (73) Pulse Ox 96 O2 Delivery Room Air Capillary Refill : Less Than 3 Seconds Height, Weight, BMI Height: 5'4.00" Weight: 239lbs. 9.0oz. [id number]; 36.00 BMI Method:Stated General Appearance: No Apparent Distress, WD/WN Respiratory: Chest Non Tender, Lungs Clear, Normal Breath Sounds, No Accessory Muscle Use, No Respiratory Distress Cardiovascular: Regular Rate, Rhythm, No Edema, No Gallop, No JVD, No Murmur, Normal Peripheral Pulses Gastrointestinal: Normal Bowel Sounds, No Organomegaly, No Pulsatile Mass, Non Tender, Soft Rectal: Normal Exam, Normal Rectal Tone, Heme Negative Stool Back: Normal Inspection, No CVA Tenderness, No Vertebral Tenderness Extremity: Normal Capillary Refill, Normal Inspection, Normal Range of Motion, Non Tender, No Calf Tenderness, No Pedal Edema Neurologic/Psychiatric: Alert, Oriented x3, No Motor/Sensory Deficits, Normal Mood/Affect Skin: Warm/Dry, Pallor Progress/Results/Core Measures Suspected Sepsis Recent Fever Within 48 Hours: No Infection Criteria Present: None New/Unexplained Altered Menta: No Sepsis Screen: No Definite Risk SIRS Temperature: Pulse: 81 Respiratory Rate: 20 Laboratory Tests 01/31/20 09:51: White Blood Count 5.4 Blood Pressure 100 /60 Mean: 73 Laboratory Tests 01/31/20 09:51: Creatinine 1.06, INR Comment 1.0, Platelet Count 327, Total Bilirubin 1.3H Results/Orders Lab Results Laboratory Tests Test 01/31/20 09:51 Range/Units White Blood Count 5.4 4.3-11.0 10^3/uL Red Blood Count 2.47 L 4.35-5.85 10^6/uL Hemoglobin 5.4 *L 11.5-16.0 G/DL Hematocrit 21 L 35-52 % Mean Corpuscular Volume 83 80-99 FL Mean Corpuscular Hemoglobin 22 L 25-34 PG Mean Corpuscular Hemoglobin Concent 26 L 32-36 G/DL Red Cell Distribution Width 18.7 H 10.0-14.5 % Platelet Count 327 130-400 10^3/uL Mean Platelet Volume 9.3 7.4-10.4 FL Neutrophils (%) (Auto) 74 42-75 % Lymphocytes (%) (Auto) 11 L 12-44 % Monocytes (%) (Auto) 14 H 0-12 % Eosinophils (%) (Auto) 1 0-10 % Basophils (%) (Auto) 0 0-10 % Neutrophils # (Auto) 4.0 1.8-7.8 X 10^3 Lymphocytes # (Auto) 0.6 L 1.0-4.0 X 10^3 Monocytes # (Auto) 0.7 0.0-1.0 X 10^3 Eosinophils # (Auto) 0.1 0.0-0.3 10^3/uL Basophils # (Auto) 0.0 0.0-0.1 10^3/uL Prothrombin Time 13.6 12.2-14.7 SEC INR Comment 1.0 0.8-1.4 Sodium Level 139 135-145 MMOL/L Potassium Level 3.5 L 3.6-5.0 MMOL/L Chloride Level 106 98-107 MMOL/L Carbon Dioxide Level 18 L 21-32 MMOL/L Anion Gap 15 H 5-14 MMOL/L Blood Urea Nitrogen 15 7-18 MG/DL Creatinine 1.06 0.60-1.30 MG/DL Estimat Glomerular Filtration Rate 52 BUN/Creatinine Ratio 14 Glucose Level 166 H 70-105 MG/DL Calcium Level 8.8 8.5-10.1 MG/DL Corrected Calcium 9.1 8.5-10.1 MG/DL Total Bilirubin 1.3 H 0.1-1.0 MG/DL Aspartate Amino Transf (AST/SGOT) 19 5-34 U/L Alanine Aminotransferase (ALT/SGPT) 19 0-55 U/L Alkaline Phosphatase 85 40-136 U/L Total Protein 6.1 L 6.4-8.2 GM/DL Albumin 3.6 3.2-4.5 GM/DL My Orders Orders - LOKESH HA MD Cbc With Automated Diff (01/31/20 09:54) Comprehensive Metabolic Panel (01/31/20 09:54) Ed Iv/Invasive Line Start (01/31/20 09:54) Urinalysis (01/31/20 10:01) Protime With Inr (01/31/20 10:01) Vital Signs/I&O 01/31/20 09:47 Temp 36.3 Pulse 81 Resp 20 B/P (MAP) 100/60 (73) Pulse Ox 96 O2 Delivery Room Air Capillary Refill : Less Than 3 Seconds Blood Pressure Mean: 73 Progress Note : Time: 11:35 Progress Note Patient has gross hematuria on The day. Patient states this is been going on for months followed by urology for the same. Patient occult blood test on stool appears to be positive. H&H 5.421. Patient be transferred to [facility] for Dr. Dillon. Patient will have type and screen crossmatch 2 units upon arrival. Patient states understanding Departure Impression Primary Impression: Gross hematuria Additional Impressions: Acute anemia Occult blood positive stool Weakness Disposition: ADMITTED INPATIENT Condition: Stable Admissions Decision to Admit Reason: Admit from ER (General) Decision to Admit/Date: Jan 31, 2020 Time/Decision to Admit Time: 11:36 Transfer Transfer Reason: Exceeds level of care Time Spoke to Accepting Phy: 11:[address] Dillon Transfer Time: 11:37 Transfer Facility: [facility] Method of Transfer: EMS Departure-Patient Inst. Referrals: [facility] (PCP) Primary Care Physician RUBI LACKEY APRN (Family) Primary Care Physician LOKESH HA MD Jan 31, 2020 10:08
[2020-01-31 10:58] LABS: PROTHROMBIN TIME PATIENT 13.6 SEC (12.2-14.7)
[2020-01-31 11:02] LABS: POTASSIUM 3.5 MMOL/L (3.6-5.0)
[2020-01-31 11:03] LABS: ALBUMIN 3.6 GM/DL (3.2-4.5); BILIRUBIN,TOTAL 1.3 MG/DL (0.1-1.0); CALCIUM 8.8 MG/DL (8.5-10.1); CREATININE SERUM 1.06 MG/DL (0.60-1.30); TOTAL PROTEIN 6.1 GM/DL (6.4-8.2)
[2020-01-31 11:05] LABS: WHITE BLOOD COUNT 5.4 10^3/uL (4.3-11.0)
[2020-01-31 11:06] LABS: BASOPHILS % (AUTO) 0 % (0-10); EOSINOPHILS # (AUTO) 0.1 10^3/uL (0.0-0.3); EOSINOPHILS % (AUTO) 1 % (0-10); HEMATOCRIT 21 % (35-52); HEMOGLOBIN 5.4 G/DL (11.5-16.0); LYMPHOCYTES # (AUTO) 0.6 X 10^3 (1.0-4.0); LYMPHOCYTES % (AUTO) 11 % (12-44); MEAN CORPUSCULAR HEMOGLOBIN 22 PG (25-34); MEAN CORPUSCULAR HGB CONC 26 G/DL (32-36); MEAN CORPUSCULAR VOLUME 83 FL (80-99); MEAN PLATELET VOLUME 9.3 FL (7.4-10.4); MONOCYTES # (AUTO) 0.7 X 10^3 (0.0-1.0); MONOCYTES % (AUTO) 14 % (0-12); NEUTROPHILS % (AUTO) 74 % (42-75); PLATELET COUNT 327 10^3/uL (130-400)
[2020-01-31] MEDS ORDERED: cefTRIAXone FOR IV USE 1,000 MG in WATER (STERILE) FOR INJECTION 10 ML IV ONE (11:45)
[2020-01-31] MEDS ORDERED: NS IV 500 ML 500 ML IV STA (12:10)
[2020-01-31 12:13] LABS: CLARITY,URINE TURBID; COLOR,URINE RED; GLUCOSE, URINE (UA) NEGATIVE (NEGATIVE); KETONES,URINE TRACE (NEGATIVE); NITRITE,URINE NEGATIVE (NEGATIVE); PROTEIN,URINE 3+ (NEGATIVE)
[2020-01-31 12:14] LABS: BILIRUBIN,URINE 2+ (NEGATIVE); LEUKOCYTE ESTERASE ,URINE TRACE (NEGATIVE)
[2020-01-31 12:15] LABS: BACTERIA,URINE MODERATE /HPF; RBC,URINE TNTC /HPF
[2020-01-31 14:45] VITALS: BP 130/61
== END 2020-01-31 14:45 | disposition short-term general hospital (02) ==
LOC: EDUNIT# 09:38 → ER FS 09:41
DX: R31.0 Gross hematuria (principal); D64.9 Anemia, unspecified; R53.1 Weakness; R19.5 Other fecal abnormalities; I25.2 Old myocardial infarction; I10 Essential (primary) hypertension; E78.00 Pure hypercholesterolemia, unspecified; F32.9 Major depressive disorder, single episode, unspecified; K21.9 Gastro-esophageal reflux disease without esophagitis; F41.9 Anxiety disorder, unspecified; Z82.49 Family history of ischemic heart disease and other diseases of the circulatory system; Z95.5 Presence of coronary angioplasty implant and graft; Z87.891 Personal history of nicotine dependence
CPT/HCPCS: 36415; 51702; 80053; 81000; 82274; 85025; 85610; 87077; 87088

== ENCOUNTER → 2020-02-07 | Outpatient (CLI) | payer MEDICARE, MEDICAID ==
[~2020-02-07] MED LIST changes: +OXC5T PO; -OXYC5TAB96 PO
[2020-02-07 11:54] LABS: BASOPHILS % (AUTO) 0 % (0-10); EOSINOPHILS % (AUTO) 3 % (0-10); HEMATOCRIT 33 % (35-52); HEMOGLOBIN 9.5 G/DL (11.5-16.0); LYMPHOCYTES # (AUTO) 0.7 X 10^3 (1.0-4.0); LYMPHOCYTES % (AUTO) 15 % (12-44); MEAN CORPUSCULAR HEMOGLOBIN 25 PG (25-34); MEAN CORPUSCULAR HGB CONC 29 G/DL (32-36); MEAN CORPUSCULAR VOLUME 87 FL (80-99); MEAN PLATELET VOLUME 9.2 FL (7.4-10.4); MONOCYTES % (AUTO) 12 % (0-12); NEUTROPHILS # (AUTO) 3.2 X 10^3 (1.8-7.8); NEUTROPHILS % (AUTO) 69 % (42-75); PLATELET COUNT 314 10^3/uL (130-400); WHITE BLOOD COUNT 4.6 10^3/uL (4.3-11.0)
[2020-02-07 11:55] LABS: EOSINOPHILS # (AUTO) 0.1 10^3/uL (0.0-0.3); MONOCYTES # (AUTO) 0.5 X 10^3 (0.0-1.0)
== END ==
LOC: LAB FS 10:53
PROVIDERS: ATTEND Nurse Practitioner Family
DX: D64.89 Other specified anemias (principal)
CPT/HCPCS: 36415; 82607; 82728; 83540; 85025

== ENCOUNTER 2020-02-28 18:26 | Emergency (ER) | payer MEDICARE, MEDICAID ==
[~2020-02-28] VITALS: Ht 170.1 cm; Wt 104.3 kg
[2020-02-28 18:57] LABS: BACTERIA,URINE FEW /HPF; BILIRUBIN,URINE NEGATIVE (NEGATIVE); CLARITY,URINE CLOUDY; COLOR,URINE RED; GLUCOSE, URINE (UA) NEGATIVE (NEGATIVE); KETONES,URINE 1+ (NEGATIVE); LEUKOCYTE ESTERASE ,URINE 2+ (NEGATIVE); NITRITE,URINE POSITIVE (NEGATIVE); PH,URINE 6.5 (5-9); PROTEIN,URINE 3+ (NEGATIVE); RBC,URINE TNTC /HPF; SQUAMOUS EPITHELIAL CELL,UR 0-2 /HPF
[2020-02-28 19:01] LABS: BASOPHILS % (AUTO) 0 % (0-10); EOSINOPHILS % (AUTO) 4 % (0-10); HEMATOCRIT 36 % (35-52); LYMPHOCYTES % (AUTO) 22 % (12-44); MEAN CORPUSCULAR HEMOGLOBIN 29 PG (25-34); MEAN CORPUSCULAR HGB CONC 31 G/DL (32-36); MEAN CORPUSCULAR VOLUME 94 FL (80-99); MEAN PLATELET VOLUME 8.3 FL (7.4-10.4); MONOCYTES % (AUTO) 12 % (0-12); NEUTROPHILS % (AUTO) 61 % (42-75); PLATELET COUNT 291 10^3/uL (130-400); WHITE BLOOD COUNT 3.9 10^3/uL (4.3-11.0)
[2020-02-28 19:02] LABS: EOSINOPHILS # (AUTO) 0.2 10^3/uL (0.0-0.3); LYMPHOCYTES # (AUTO) 0.9 X 10^3 (1.0-4.0); MONOCYTES # (AUTO) 0.5 X 10^3 (0.0-1.0); NEUTROPHILS # (AUTO) 2.4 X 10^3 (1.8-7.8)
--- NOTE | 2020-02-28 19:05 | ED GU-Female ---
General Chief Complaint: - Urinary Stated Complaint: BLOOD IN URINE Nursing Triage Note: Pt to ED in wheelchair. Pt reports being in [facility] recently with a Hgb of 5. Pt received several blood transfusions. Pt reports blood loss is coming from kidneys. Pt reports hematuria and would like Hgb checked again. Pt denies pain or other symptoms at this time. Nursing Sepsis Screen: No Definite Risk Source: patient Exam Limitations: no limitations History of Present Illness Date Seen by Provider: Feb 28, 2020 Time Seen by Provider: 18:50 Initial Comments 64-year-old female presents with bloody urine. Past medical history/history of present illness, patient has been dealing with blood in her urine for the past approximately 7 months. Has been evaluated by her PCP, urology and 3 weeks ago was admitted to [facility] for blood transfusion secondary to blood loss. Presumed hematuria, however not a confirmed cause. Patient saw her urologist last week and she states that he gave her some pills and told her to follow up in 6 months. Today patient had laurie blood in her urine again and her daughter brought her to the ER out of concern. Patient denies chest pain, shortness of air, lightheadedness or syncope. Allergies and Home Medications Allergies Coded Allergies: No Known Drug Allergies (Unverified , 06/16/17) Home Medications Albuterol Sulfate 1 Puff Puff, 2 PUFF INH Q4H PRN for SHORTNESS OF BREATH, (Reported) Alprazolam 0.5 Mg Tablet, 0.5 MG PO BID PRN for ANXIETY, (Reported) Atorvastatin Calcium 40 Mg Tablet, 40 MG PO HS, (Reported) Cefdinir 300 Mg Capsule, 300 MG PO BID Prescribed by: GILBERTO PAUL on 06/11/19 1218 Cetirizine HCl 10 Mg Tablet, 10 MG PO DAILY, (Reported) Cholecalciferol (Vitamin D3) 2,000 Unit Tablet, 2,000 UNIT PO DAILY, (Reported) Docusate Sodium 100 Mg Capsule, 100 MG PO DAILY PRN for CONSTIPATION-1ST LINE, (Reported) Duloxetine HCl 60 Mg Capsule.dr, 60 MG PO BID, (Reported) Estrogens Conjugated 30 Gm Cr, 0.5 GM VG 2X WEEKLY @ BEDTIME, (Reported) Fesoterodine Fumarate 4 Mg Tab.sr.24h, 4 MG PO DAILY, (Reported) Lisinopril 40 Mg Tablet, 40 MG PO DAILY, (Reported) Metoprolol Tartrate 50 Mg Tablet, 50 MG PO BID, (Reported) Multivitamins-Min/FA/Ginkgo 1 Each Tablet, 1 TAB PO DAILY, (Reported) Pantoprazole Sodium 40 Mg Tablet.dr, 40 MG PO DAILY, (Reported) Quetiapine Fumarate 100 Mg Tablet, 100 MG PO HS, (Reported) Ranitidine HCl 150 Mg Capsule, 150 MG PO BID, (Reported) Rivastigmine 4.6 Mg Patch, 4.6 MG TD DAILY, (Reported) Patient Home Medication List Home Medication List Reviewed: Yes Review of Systems Review of Systems Constitutional: see HPI; No chills, No diaphoresis, No dizziness, No fever, No malaise, No weakness Respiratory: No cough, No short of breath Cardiovascular: No chest pain, No palpitations, No syncope Gastrointestinal: No abdominal pain, No constipation, No diarrhea, No hematemesis, No loss of appetite, No melena, No nausea, No vomiting Genitourinary: see HPI; denies dysuria, denies frequency, denies flank pain; hematuria; denies incontinence, denies pain, denies urgency Musculoskeletal: No back pain, No joint pain Skin: No change in color, No lesions, No rash Hematologic/Lymphatic: See HPI, Anemia; Denies Blood Clots, Denies Easy Bruising Past Ekbwekb-Eoeixl-Cbhlqj Hx Past Med/Social Hx: Reviewed Nursing Past Med/Soc Hx Patient Social History Alcohol Use: Denies Use Recreational Drug Use: No Former Smoker, Quit: Jul 11, 2011 2nd Hand Smoke Exposure: No Recent Foreign Travel: No Contact w/Someone Who Travel: No Recent Infectious Disease Expo: No Recent Hopitalizations: Yes (Anne for blood transfusions) Immunizations Up To Date Tetanus Booster (TDap): Unknown PED Vaccines UTD: No Date of Pneumonia Vaccine: Feb 18, 2019 Date of Influenza Vaccine: Feb 18, 2019 Seasonal Allergies Seasonal Allergies: Yes (LEAVES AND TREES) Past Medical History Surgeries: Yes (R THR X2, L THR, STENTS X9, COLON RESECTION, MACROPLASTIQUE) Coronary Stent, Gallbladder, Joint Replacement, Tubal Ligation Respiratory: No Currently Using CPAP: No Currently Using BIPAP: No Cardiac: Yes (9 STENTS) Coronary Artery Disease, Heart Attack, High Cholesterol, Hypertension Neurological: No Reproductive Disorders: No Sexually Transmitted Disease: No HIV/AIDS: No Genitourinary: Yes (INCONTINENCY) Bladder Infection, UTI-Chronic Gastrointestinal: Yes (ESOPHAGEAL STRICTURE) Gastroesophageal Reflux, Chronic Diarrhea Musculoskeletal: Yes ("HIPS DISSINEGRATED") Arthritis, Fractures Endocrine: No HEENT: No (GLASSES, DENTURES) Loss of Vision: Denies Hearing Impairment: Denies, Bilateral Hearing Aide Cancer: No Psychosocial: Yes Anxiety, Depression Integumentary: No Blood Disorders: No Adverse Reaction/Blood Tranf: No (HAS HAD BLOOD WITH NO REACTION) Family Medical History Diabetes mellitus 19 MOTHER G8 BROTHER G8 SISTER Diabetes, Hypertension Physical Exam Vital Signs Vital Signs - First Documented 02/28/20 18:30 Temp 36.4 Pulse 75 Resp 20 B/P (MAP) 139/75 (96) Pulse Ox 91 O2 Delivery Room Air Capillary Refill : Less Than 3 Seconds Height, Weight, BMI Height: 5'4.00" Weight: 239lbs. 9.0oz. [id number]; 36.00 BMI Method:Stated General Appearance: WD/WN, no apparent distress HEENT: PERRL/EOMI, normal ENT inspection; No pale conjunctivae (R), No pale conjunctivae (L) Neck: non-tender, supple Cardiovascular: regular rate, rhythm, no edema, no JVD Respiratory: chest non-tender, lungs clear, normal breath sounds, no respiratory distress, no accessory muscle use Gastrointestinal: normal bowel sounds, non tender, soft, no organomegaly, hernia (R mid abdomen) Back: normal inspection, no CVA tenderness Extremities: non-tender, normal inspection, no pedal edema Neurologic/Psychiatric: no motor/sensory deficits, alert, normal mood/affect Skin: normal color, warm/dry; No ecchymosis, No jaundice, No rash Progress/Results/Core Measures Suspected Sepsis Recent Fever Within 48 Hours: No Infection Criteria Present: None New/Unexplained Altered Menta: No Sepsis Screen: No Definite Risk SIRS Temperature: Pulse: 75 Respiratory Rate: 20 Laboratory Tests 02/28/20 18:45: White Blood Count 3.9L Blood Pressure 139 /75 Mean: 96 Laboratory Tests 02/28/20 18:45: Creatinine 1.02, Platelet Count 291 Results/Orders Lab Results Laboratory Tests Test 02/28/20 18:40 02/28/20 18:45 Range/Units Urine Color RED H Urine Clarity CLOUDY Urine pH 6.5 5-9 Urine Specific [place] 1.020 1.016-1.022 Urine Protein 3+ H NEGATIVE Urine Glucose (UA) NEGATIVE NEGATIVE Urine Ketones 1+ H NEGATIVE Urine Nitrite POSITIVE H NEGATIVE Urine Bilirubin NEGATIVE NEGATIVE Urine Urobilinogen 4.0 < = 1.0 MG/DL Urine Leukocyte Esterase 2+ H NEGATIVE Urine RBC (Auto) 2+ H NEGATIVE Urine RBC TNTC H /HPF Urine WBC NONE /HPF Urine Squamous Epithelial Cells 0-2 /HPF Urine Crystals NONE /LPF Urine Bacteria FEW H /HPF Urine Casts NONE /LPF Urine Mucus NEGATIVE /LPF Urine Culture Indicated YES White Blood Count 3.9 L 4.3-11.0 10^3/uL Red Blood Count 3.82 L 4.35-5.85 10^6/uL Hemoglobin 11.0 L 11.5-16.0 G/DL Hematocrit 36 35-52 % Mean Corpuscular Volume 94 80-99 FL Mean Corpuscular Hemoglobin 29 25-34 PG Mean Corpuscular Hemoglobin Concent 31 L 32-36 G/DL Red Cell Distribution Width 23.0 H 10.0-14.5 % Platelet Count 291 130-400 10^3/uL Mean Platelet Volume 8.3 7.4-10.4 FL Immature Granulocyte % (Auto) 1 % Neutrophils (%) (Auto) 61 42-75 % Lymphocytes (%) (Auto) 22 12-44 % Monocytes (%) (Auto) 12 0-12 % Eosinophils (%) (Auto) 4 0-10 % Basophils (%) (Auto) 0 0-10 % Neutrophils # (Auto) 2.4 1.8-7.8 X 10^3 Lymphocytes # (Auto) 0.9 L 1.0-4.0 X 10^3 Monocytes # (Auto) 0.5 0.0-1.0 X 10^3 Eosinophils # (Auto) 0.2 0.0-0.3 10^3/uL Basophils # (Auto) 0.0 0.0-0.1 10^3/uL Immature Granulocyte # (Auto) 0.0 0.0-0.1 10^3/uL Sodium Level 140 135-145 MMOL/L Potassium Level 3.7 3.6-5.0 MMOL/L Chloride Level 108 H 98-107 MMOL/L Carbon Dioxide Level 21 21-32 MMOL/L Anion Gap 11 5-14 MMOL/L Blood Urea Nitrogen 15 7-18 MG/DL Creatinine 1.02 0.60-1.30 MG/DL Estimat Glomerular Filtration Rate 54 BUN/Creatinine Ratio 15 Glucose Level 132 H 70-105 MG/DL Calcium Level 9.3 8.5-10.1 MG/DL My Orders Orders - SABA GOLD DO Urinalysis (02/28/20 18:33) Urine Culture (02/28/20 18:40) Basic Metabolic Panel (02/28/20 18:59) Cbc With Automated Diff (02/28/20 18:59) Vital Signs/I&O 02/28/20 18:30 Temp 36.4 Pulse 75 Resp 20 B/P (MAP) 139/75 (96) Pulse Ox 91 O2 Delivery Room Air Capillary Refill : Less Than 3 Seconds Blood Pressure Mean: 96 Departure Impression Primary Impression: Gross hematuria Disposition: 01 HOME, SELF-CARE Condition: Stable Departure-Patient Inst. Decision time for Depature: 19:22 Referrals: [facility] (PCP) Primary Care Physician RUBI LACKEY APRN (Family) Primary Care Physician Patient Instructions: Blood in the Urine (Hematuria), Adult (DC) Add. Discharge Instructions: Follow up with Urology in [place] as planned. Follow up in the nearest ER for any symptoms such as: continued severe bleeding in your urine, light headedness or passing out Your Hemoglobin levels the past month are as follow: 01/31/2020 = 5.4 02/07/2020 = 9.5 2019 = 11 All discharge instructions reviewed with patient and/or family. Voiced understanding. Scripts Cephalexin (Cephalexin) 500 Mg Tablet 500 MG PO TID, #21 TAB 0 Refills Prov: RYLEESTSABA DOAN DO 02/28/20 RYLEESTINESABA DO Feb 28, 2020 19:05
[2020-02-28 19:15] LABS: POTASSIUM 3.7 MMOL/L (3.6-5.0)
[2020-02-28 19:16] LABS: CALCIUM 9.3 MG/DL (8.5-10.1); CREATININE SERUM 1.02 MG/DL (0.60-1.30)
[2020-02-28] MEDS ORDERED: CEPH500T PO (19:21)
[2020-02-28 19:31] VITALS: BP 118/69
== END 2020-02-28 19:31 | disposition home or self-care (01) ==
LOC: EDUNIT# 18:26 → ER FS 18:27
DX: R31.0 Gross hematuria (principal); E78.00 Pure hypercholesterolemia, unspecified; I10 Essential (primary) hypertension; K21.9 Gastro-esophageal reflux disease without esophagitis; F41.9 Anxiety disorder, unspecified; F32.9 Major depressive disorder, single episode, unspecified; I25.2 Old myocardial infarction; Z82.49 Family history of ischemic heart disease and other diseases of the circulatory system; Z83.3 Family history of diabetes mellitus; Z95.5 Presence of coronary angioplasty implant and graft; Z87.891 Personal history of nicotine dependence
CPT/HCPCS: 36415; 80048; 81000; 85025; 87077; 87088

== ENCOUNTER → 2020-04-24 | Outpatient (CLI) | payer MEDICARE, MEDICAID ==
[~2020-04-24] MED LIST changes: +AMLO-250 PO; +AMLO-251 PO; -AMLO10TA7 PO; -AMLO5TAB9 PO; +CEPH500T PO; -RISP1TAB3 PO; +RISP1TAB93 PO
[2020-04-24 13:17] LABS: POTASSIUM 3.9 MMOL/L (3.6-5.0)
[2020-04-24 13:18] LABS: CALCIUM 9.2 MG/DL (8.5-10.1); CREATININE SERUM 1.11 MG/DL (0.60-1.30)
== END ==
LOC: LAB FS 12:26
PROVIDERS: ATTEND Urology
DX: R31.9 Hematuria, unspecified (principal)
CPT/HCPCS: 36415; 80048

== ENCOUNTER → 2020-05-01 | Outpatient (CLI) | payer MEDICARE, MEDICAID ==
[~2020-05-01] MED LIST changes: +CATHETER FLUSH 10 ML SYR IV PRN; +HOLD METFORMIN - RECEIVED CONTRAST 20 ML VIAL IV SCH; +IOHEXOL 350 MG/ML 100 ML (OMNIPAQUE 350) VIAL IV ONE; +NS 100 ML (IVPB) BAG IV ONE
--- NOTE | 2020-05-01 11:28 | Diagnostic Imaging Report ---
PROCEDURE: CT abdomen and pelvis with and without contrast. TECHNIQUE: Precontrast acquisitions were acquired through the abdomen and pelvis. Multiple contiguous axial images were obtained through the abdomen and pelvis after the administration of intravenous contrast. Auto Exposure Controls were utilized during the CT exam to meet ALARA standards for radiation dose reduction. INDICATION: Hematuria for eight months. COMPARISON: Correlation is made with a prior CT from 07/23/2019. FINDINGS: Imaging through the lung bases does show some linear scarring or atelectasis in the right middle lobe and lingula. No discrete liver mass is identified. There does appear to be pneumobilia present, perhaps on the basis of incompetent sphincter. No definite biliary ductal dilatation is seen. Pancreas and spleen are unremarkable. No adrenal mass is identified. The left kidney contains a small nonobstructing calculus in upper pole. Right kidney is unremarkable. There is no hydronephrosis. Aorta is heavily calcified but nonaneurysmal. Large midline ventral hernia containing portions of the colon and small bowel loops is again noted. No definite strangulation or evidence of bowel obstruction is identified. There is moderate stool throughout the colon. Images through the pelvis does show some high density material within the urinary bladder. This is incompletely visualized due to streak artifact from patient's bilateral hip prostheses. There is no free fluid in the abdomen or pelvis. Bony structures show postop changes in bilateral hips. IMPRESSION: 1. Nonobstructing left-sided nephrolithiasis. 2. Large midline ventral hernia containing small and large bowel loops. No strangulation or bowel obstruction is identified. 3. High-density material noted within the urinary bladder. This is most likely consistent with a large bladder thrombus. Underlying bladder malignancy cannot be entirely excluded. Correlation with cystoscopy would be recommended. Dictated by: Dictated on workstation # [id number]
== END ==
LOC: RAD FS 09:32
PROVIDERS: ATTEND Urology
DX: N20.0 Calculus of kidney (principal); K43.9 Ventral hernia without obstruction or gangrene
CPT/HCPCS: 74178

== ENCOUNTER 2020-06-24 12:43 | Outpatient (CLI) | payer MEDICARE, MEDICAID ==
[~2020-06-24] VITALS: Ht 170 cm; Wt 104.5 kg
[~2020-06-24 12:43] MED LIST changes: -BUSP10TA95 PO; -FERR325T18 PO; -RISP1TAB10 PO; -SOLI5TAB7 PO; -[UNRECOGNIZED DRUG - OTHER]
[2020-06-24 13:26] VITALS: BP 147/65
[2020-06-24] MEDS ORDERED: NS IV 500 ML 500 ML IV SCH (13:30)
[2020-06-24] MEDS ORDERED: BUSP10TA95 PO (13:45)
[2020-06-24] MEDS ORDERED: FERR325T18 PO (13:45)
[2020-06-24] MEDS ORDERED: [UNRECOGNIZED DRUG - OTHER] (13:45)
[2020-06-24] MEDS ORDERED: RISP1TAB10 PO (13:45)
[2020-06-24] MEDS ORDERED: MIRA50TA PO (13:45)
[2020-06-24] MEDS ORDERED: FOLI1TAB33 PO (13:45)
[2020-06-24] MEDS ORDERED: SOLI5TAB7 PO (13:45)
[2020-06-24] MEDS ORDERED: TRIM100T PO (13:45)
[2020-06-24 13:57] VITALS: BP 133/66
[2020-06-24 14:12] VITALS: BP 125/68
[2020-06-24 15:28] VITALS: BP 133/69
[2020-06-24 15:45] VITALS: BP 132/70
[2020-06-24 17:25] VITALS: BP 137/74
--- NOTE | 2020-06-24 17:25 | NUR ---
TRANSFUSION COMPLETE. DENIES COMPLAINTS. NS 0.9% TO CLEAR IV LINE. HAS TWICE VOIDED BLOODY URINE TO BSC SINCE ADMIT. PT AND CAREGIVER STATE THIS HAS BEEN A CHRONIC CONDITION OVER THE LAST YEAR. PT STATES SHE WAS UNDER THE CARE OF A LOCAL UROLOGIST, BUT HAS AN APPOINTMENT SCHEDULED TO SEE ANOTHER UROLOGIST SOON. ALSO STATES [facility] PROVIDER, EVELYNE ANTON APRN, IS AWARE OF URINARY BLOOD AND SYMPTOMS.
[2020-06-24 17:46] LABS: HEMOGLOBIN 8.6 g/dL (11.5-16.0)
--- NOTE | 2020-06-24 17:55 | NUR ---
H & H DRAWN PER PROTOCOL. DENIES COMPLAINTS. MALA DC'D. DISMISSED PER WC TO PRIVATE VEHICLE WITH STAFF X1 AND CAREGIVER.
== END 2020-06-24 17:55 | disposition home or self-care (01) ==
LOC: SDC 12:43
PROVIDERS: ATTEND Nurse Practitioner Family
DX: Z01.89 Encounter for other specified special examinations (principal)
CPT/HCPCS: 36415; 36430; 85014; 85018; 86850; 86900; 86901; 86920

== ENCOUNTER → 2020-06-24 | Outpatient (CLI) | payer MEDICARE, MEDICAID ==
[~2020-06-24] MED LIST changes: +BUSP10TA95 PO; -CATHETER FLUSH 10 ML SYR IV PRN; +FERR325T18 PO; -FOLI1TAB24 PO; +FOLI1TAB33 PO; -HOLD METFORMIN - RECEIVED CONTRAST 20 ML VIAL IV SCH; -IOHEXOL 350 MG/ML 100 ML (OMNIPAQUE 350) VIAL IV ONE; -NS 100 ML (IVPB) BAG IV ONE; +RISP1TAB10 PO; +SOLI5TAB7 PO; +[UNRECOGNIZED DRUG - OTHER]
[2020-06-24 09:41] LABS: MEAN CORPUSCULAR HEMOGLOBIN 21 PG (25-34); MEAN CORPUSCULAR VOLUME 77 FL (80-99)
[2020-06-24 09:42] LABS: BASOPHILS % (AUTO) 0 % (0-10); EOSINOPHILS # (AUTO) 0.1 10^3/uL (0.0-0.3); EOSINOPHILS % (AUTO) 3 % (0-10); LYMPHOCYTES # (AUTO) 0.6 X 10^3 (1.0-4.0); LYMPHOCYTES % (AUTO) 15 % (12-44); MEAN CORPUSCULAR HGB CONC 27 G/DL (32-36); MEAN PLATELET VOLUME 9.2 FL (7.4-10.4); MONOCYTES # (AUTO) 0.4 X 10^3 (0.0-1.0); MONOCYTES % (AUTO) 10 % (0-12); NEUTROPHILS # (AUTO) 2.8 X 10^3 (1.8-7.8); NEUTROPHILS % (AUTO) 71 % (42-75); PLATELET COUNT 285 10^3/uL (130-400)
[2020-06-24 09:45] LABS: HEMATOCRIT 25 % (35-52); HEMOGLOBIN 6.7 G/DL (11.5-16.0)
== END ==
LOC: LAB FS 09:06
PROVIDERS: ATTEND Nurse Practitioner Family
DX: D64.89 Other specified anemias (principal)
CPT/HCPCS: 36415; 85025

== ENCOUNTER → 2020-06-24 | Outpatient (CLI) | payer MEDICARE, MEDICAID ==
[2020-06-24 12:28] LABS: BILIRUBIN,TOTAL 0.6 MG/DL (0.1-1.0); CALCIUM 9.1 MG/DL (8.5-10.1); CREATININE SERUM 1.03 MG/DL (0.60-1.30); POTASSIUM 3.8 MMOL/L (3.6-5.0)
[2020-06-24 12:29] LABS: ALBUMIN 3.4 GM/DL (3.2-4.5); TOTAL PROTEIN 5.9 GM/DL (6.4-8.2)
== END ==
LOC: LAB FS 09:03
PROVIDERS: ATTEND Physician Assistant
DX: E78.2 Mixed hyperlipidemia (principal)
CPT/HCPCS: 36415; 80053; 80061

== ENCOUNTER 2020-08-28 10:10 | Emergency (ER) | payer MEDICARE, MEDICAID ==
[~2020-08-28 10:10] MED LIST changes: +BUSP10TA95 PO; +FERR325T18 PO; -LISI-552 PO; -LISI10TA2 PO; +LISI10TA25 PO; +LISI20TA26 PO; -LISI40TA PO; +LISI40TA9 PO; -METO10TA3 PO; +MTC10T PO; +RISP1TAB10 PO; +SOLI5TAB7 PO; +[UNRECOGNIZED DRUG - OTHER]
--- NOTE | 2020-08-28 10:21 | ED General ---
General Chief Complaint: General Problems/Pain Stated Complaint: LOW BP History of Present Illness Date Seen by Provider: Aug 28, 2020 Time Seen by Provider: 10:19 Initial Comments 64-year-old female presents with some generalized malaise not feeling well. Patient reports this been going on for couple weeks to a month. Patient was recently diagnosed with bladder cancer. For about the last year she has had hematuria. Patient has a history of low hemoglobin that requires a blood transfusion. Patient was at her primary care provider and was found to have a low blood pressure. Sent over here for further evaluation. Patient's main complaint is just generalized malaise and body aches. No known fevers chills cough etc. Allergies and Home Medications Allergies Coded Allergies: No Known Drug Allergies (Unverified , 06/16/17) Home Medications Albuterol Sulfate 1 Puff Puff, 2 PUFF INH Q4H PRN for SHORTNESS OF BREATH, (Reported) Cetirizine HCl 10 Mg Tablet, 10 MG PO DAILY, (Reported) Duloxetine HCl 60 Mg Capsule.dr, 60 MG PO BID, (Reported) Ferrous Sulfate 325 Mg Tablet, 325 MG PO BID, (Reported) Folic Acid 1 Mg Tablet, 1 MG PO DAILY, (Reported) Metoprolol Tartrate 50 Mg Tablet, 50 MG PO BID, (Reported) Multivitamins-Min/FA/Ginkgo 1 Each Tablet, 1 TAB PO DAILY, (Reported) Pantoprazole Sodium 40 Mg Tablet.dr, 40 MG PO DAILY, (Reported) Rivastigmine 4.6 Mg Patch, 4.6 MG TD DAILY, (Reported) Patient Home Medication List Home Medication List Reviewed: Yes Review of Systems Review of Systems Constitutional: No chills, No fever; malaise, weakness EENTM: see HPI Respiratory: No cough, No short of breath Cardiovascular: No chest pain, No palpitations Gastrointestinal: No diarrhea, No melena, No nausea, No vomiting Genitourinary: see HPI, hematuria Musculoskeletal: see HPI Skin: no symptoms reported Psychiatric/Neurological: No Symptoms Reported Hematologic/Lymphatic: No Symptoms Reported Past Zarqjay-Koairl-Failzp Hx Past Med/Social Hx: Reviewed Nursing Past Med/Soc Hx Patient Social History Former Smoker, Quit: Jul 11, 2011 2nd Hand Smoke Exposure: No Recent Hopitalizations: Yes ([facility] for blood transfusions) Immunizations Up To Date Tetanus Booster (TDap): Unknown PED Vaccines UTD: No Date of Pneumonia Vaccine: Feb 18, 2019 Date of Influenza Vaccine: Feb 18, 2019 Seasonal Allergies Seasonal Allergies: Yes (LEAVES AND TREES) Past Medical History Surgeries: Yes (R THR X2, L THR, STENTS X9, COLON RESECTION, MACROPLASTIQUE) Coronary Stent, Gallbladder, Joint Replacement, Tubal Ligation Respiratory: No Currently Using CPAP: No Currently Using BIPAP: No Cardiac: Yes (9 STENTS) Coronary Artery Disease, Heart Attack, High Cholesterol, Hypertension Neurological: No Reproductive Disorders: No Sexually Transmitted Disease: No HIV/AIDS: No Genitourinary: Yes (INCONTINENCY) Bladder Infection, UTI-Chronic Gastrointestinal: Yes (ESOPHAGEAL STRICTURE) Gastroesophageal Reflux, Chronic Diarrhea Musculoskeletal: Yes ("HIPS DISSINEGRATED") Arthritis, Fractures Endocrine: No HEENT: No (GLASSES, DENTURES) Loss of Vision: Denies Hearing Impairment: Denies, Bilateral Hearing Aide Cancer: No Psychosocial: Yes Anxiety, Depression Integumentary: No Blood Disorders: No Adverse Reaction/Blood Tranf: No (HAS HAD BLOOD WITH NO REACTION) Family Medical History Diabetes mellitus 19 MOTHER G8 BROTHER G8 SISTER Diabetes, Hypertension Physical Exam Vital Signs Vital Signs - First Documented 08/28/20 10:18 Temp 35.8 Pulse 80 Resp 16 B/P (MAP) 100/57 (71) Pulse Ox 99 Capillary Refill : Height, Weight, BMI Height: 5'4.00" Weight: 239lbs. 9.0oz. 108.571870ej; 36.00 BMI Method:Stated General Appearance: No Apparent Distress, WD/WN HEENT: PERRL/EOMI Neck: Normal Inspection, Non Tender, Supple Respiratory: Lungs Clear, Normal Breath Sounds Cardiovascular: Regular Rate, Rhythm, No Edema Gastrointestinal: Non Tender, Soft Back: No CVA Tenderness Extremity: Normal Capillary Refill, Normal Range of Motion Neurologic/Psychiatric: Alert, Oriented x3, No Motor/Sensory Deficits, Normal Mood/Affect, metal sander II-XII Norm as Tested Progress/Results/Core Measures Suspected Sepsis SIRS Temperature: Pulse: Respiratory Rate: Laboratory Tests 08/28/20 10:18: White Blood Count 7.2 Blood Pressure / Mean: Laboratory Tests 08/28/20 10:18: Creatinine 1.31H, INR Comment 1.0, Platelet Count 425H, Total Bilirubin 0.3 Results/Orders Lab Results Laboratory Tests Test 08/28/20 10:18 08/28/20 11:16 Range/Units White Blood Count 7.2 4.3-11.0 10^3/uL Red Blood Count 3.27 L 4.35-5.85 10^6/uL Hemoglobin 8.7 L 11.5-16.0 G/DL Hematocrit 30 L 35-52 % Mean Corpuscular Volume 91 80-99 FL Mean Corpuscular Hemoglobin 27 25-34 PG Mean Corpuscular Hemoglobin Concent 29 L 32-36 G/DL Red Cell Distribution Width 14.4 10.0-14.5 % Platelet Count 425 H 130-400 10^3/uL Mean Platelet Volume 8.6 7.4-10.4 FL Immature Granulocyte % (Auto) 1 % Neutrophils (%) (Auto) 81 H 42-75 % Lymphocytes (%) (Auto) 9 L 12-44 % Monocytes (%) (Auto) 8 0-12 % Eosinophils (%) (Auto) 1 0-10 % Basophils (%) (Auto) 0 0-10 % Neutrophils # (Auto) 5.8 1.8-7.8 X 10^3 Lymphocytes # (Auto) 0.7 L 1.0-4.0 X 10^3 Monocytes # (Auto) 0.6 0.0-1.0 X 10^3 Eosinophils # (Auto) 0.1 0.0-0.3 10^3/uL Basophils # (Auto) 0.0 0.0-0.1 10^3/uL Immature Granulocyte # (Auto) 0.0 0.0-0.1 10^3/uL Prothrombin Time 13.2 12.2-14.7 SEC INR Comment 1.0 0.8-1.4 Activated Partial Thromboplast Time 27 24-35 SEC Sodium Level 138 135-145 MMOL/L Potassium Level 4.3 3.6-5.0 MMOL/L Chloride Level 103 98-107 MMOL/L Carbon Dioxide Level 21 21-32 MMOL/L Anion Gap 14 5-14 MMOL/L Blood Urea Nitrogen 14 7-18 MG/DL Creatinine 1.31 H 0.60-1.30 MG/DL Estimat Glomerular Filtration Rate 41 BUN/Creatinine Ratio 11 Glucose Level 153 H 70-105 MG/DL Calcium Level 9.5 8.5-10.1 MG/DL Corrected Calcium 9.9 8.5-10.1 MG/DL Magnesium Level 1.9 1.6-2.4 MG/DL Total Bilirubin 0.3 0.1-1.0 MG/DL Aspartate Amino Transf (AST/SGOT) 11 5-34 U/L Alanine Aminotransferase (ALT/SGPT) 6 0-55 U/L Alkaline Phosphatase 130 40-136 U/L Troponin I < 0.30 <0.30 NG/ML Total Protein 6.4 6.4-8.2 GM/DL Albumin 3.5 3.2-4.5 GM/DL Urine Color RED H Urine Clarity TURBID Urine pH 6.5 5-9 Urine Specific [place] 1.025 H 1.016-1.022 Urine Protein 2+ H NEGATIVE Urine Glucose (UA) TRACE H NEGATIVE Urine Ketones TRACE H NEGATIVE Urine Nitrite POSITIVE H NEGATIVE Urine Bilirubin 1+ H NEGATIVE Urine Urobilinogen 0.2 < = 1.0 MG/DL Urine Leukocyte Esterase 2+ H NEGATIVE Urine RBC (Auto) 3+ H NEGATIVE Urine RBC TNTC H /HPF Urine WBC 25-50 H /HPF Urine Squamous Epithelial Cells RARE /HPF Urine Crystals NONE /LPF Urine Bacteria NEGATIVE /HPF Urine Casts NONE /LPF Urine Mucus NEGATIVE /LPF Urine Culture Indicated YES My Orders Orders - ROCHA,BALDEMAR L DO Chest 1 View Ap/Pa Only (08/28/20 10:21) Ekg Tracing (08/28/20 10:21) Monitor-Rhythm Ecg Trace Only (08/28/20 10:21) Cbc With Automated Diff (08/28/20 10:21) Comprehensive Metabolic Panel (08/28/20 10:21) Magnesium (08/28/20 10:21) Protime With Inr (08/28/20 10:21) Partial Thromboplastin Time (08/28/20 10:21) Ua Culture If Indicated (08/28/20 10:21) Troponin I Fs (08/28/20 10:21) Ed Iv/Invasive Line Start (08/28/20 11:23) Ns Iv 500 Ml (Sodium Chloride 0.9%) (08/28/20 11:30) Urine Culture (08/28/20 11:16) Medications Given in ED Current Medications Medications Dose Ordered Sig/Sandra Route Start Time Stop Time Status Last Admin Dose Admin Sodium Chloride 500 ml @ 0 mls/hr Q0M ONCE IV 08/28/20 11:30 08/28/20 11:31 DC 08/28/20 11:40 999 MLS/HR Vital Signs/I&O 08/28/20 10:18 Temp 35.8 Pulse 80 Resp 16 B/P (MAP) 100/57 (71) Pulse Ox 99 Capillary Refill : Progress Note : Progress Note Patient's hemoglobin is at her baseline. Patient is mildly dehydrated. Otherwise no acute findings on her labs. Discussed with her that she will need to continue to follow with her primary care provider that her body aches and malaise could be related to her diagnosis of bladder cancer and chronic anemia. Patient stable and discharged ECG Initial ECG Impression Date: Aug 28, 2020 Initial ECG Impression Time: 10:30 Initial ECG Rate: 72 Initial ECG Rhythm: Normal Sinus Initial ECG Intervals: [place] (220) Comment No acute findings Departure Impression Primary Impression: Gross hematuria Additional Impressions: Bladder malignancy Qualified Codes: C67.9 - Malignant neoplasm of bladder, unspecified Chronic anemia Mild dehydration Disposition: 01 HOME, SELF-CARE Condition: Stable Departure-Patient Inst. Referrals: EVELYNE ANTON APRN (PCP/Family) Primary Care Physician Patient Instructions: Bladder Cancer, Dehydration, Adult ED Add. Discharge Instructions: Follow-up with your primary care provider next week for continuation of care All discharge instructions reviewed with patient and/or family. Voiced understanding. BALDEMAR ROCHA DO Aug 28, 2020 10:21
[2020-08-28 10:29] LABS: HEMATOCRIT 30 % (35-52); HEMOGLOBIN 8.7 G/DL (11.5-16.0); MEAN CORPUSCULAR HEMOGLOBIN 27 PG (25-34); MEAN CORPUSCULAR HGB CONC 29 G/DL (32-36); MEAN CORPUSCULAR VOLUME 91 FL (80-99); MEAN PLATELET VOLUME 8.6 FL (7.4-10.4); PLATELET COUNT 425 10^3/uL (130-400); WHITE BLOOD COUNT 7.2 10^3/uL (4.3-11.0)
[2020-08-28 10:30] LABS: BASOPHILS % (AUTO) 0 % (0-10); EOSINOPHILS # (AUTO) 0.1 10^3/uL (0.0-0.3); EOSINOPHILS % (AUTO) 1 % (0-10); LYMPHOCYTES # (AUTO) 0.7 X 10^3 (1.0-4.0); LYMPHOCYTES % (AUTO) 9 % (12-44); MONOCYTES # (AUTO) 0.6 X 10^3 (0.0-1.0); MONOCYTES % (AUTO) 8 % (0-12); NEUTROPHILS # (AUTO) 5.8 X 10^3 (1.8-7.8); NEUTROPHILS % (AUTO) 81 % (42-75)
--- NOTE | 2020-08-28 10:39 | Diagnostic Imaging Report ---
INDICATION: Malaise. TIME OF EXAM: 10:20 AM CORRELATION is made with prior chest 01/30/2020. Heart size is normal. There is some ectasia and tortuosity of the descending thoracic aorta. There is mild scarring or atelectasis in the left base. Otherwise, the lungs are clear. No effusion or pneumothorax is seen. IMPRESSION: Mild left basilar scarring or atelectasis. The study is otherwise unremarkable. Dictated by: Dictated on workstation # [id number]
[2020-08-28 10:47] LABS: PROTHROMBIN TIME PATIENT 13.2 SEC (12.2-14.7)
[2020-08-28 11:16] LABS: ALANINE AMINOTRANSFERASE 6 U/L (0-55); ALKALINE PHOSPHATASE 130 U/L (40-136); BILIRUBIN,TOTAL 0.3 MG/DL (0.1-1.0); BUN/CREATININE RATIO 11; CALCIUM 9.5 MG/DL (8.5-10.1); CARBON DIOXIDE 21 MMOL/L (21-32); CHLORIDE 103 MMOL/L (98-107); CREATININE SERUM 1.31 MG/DL (0.60-1.30); GFR ESTIMATED 41; GLUCOSE 153 MG/DL (70-105); MAGNESIUM 1.9 MG/DL (1.6-2.4); POTASSIUM 4.3 MMOL/L (3.6-5.0); SODIUM 138 MMOL/L (135-145); TOTAL PROTEIN 6.4 GM/DL (6.4-8.2)
[2020-08-28 11:17] LABS: ALBUMIN 3.5 GM/DL (3.2-4.5)
[2020-08-28] MEDS ORDERED: NS IV 500 ML 500 ML IV ONE (11:30)
[2020-08-28 11:51] LABS: CLARITY,URINE TURBID; COLOR,URINE RED; PH,URINE 6.5 (5-9); PROTEIN,URINE 2+ (NEGATIVE)
[2020-08-28 11:52] LABS: GLUCOSE, URINE (UA) TRACE (NEGATIVE); KETONES,URINE TRACE (NEGATIVE)
[2020-08-28 11:53] LABS: NITRITE,URINE POSITIVE (NEGATIVE)
[2020-08-28 11:54] LABS: BACTERIA,URINE NEGATIVE /HPF; BILIRUBIN,URINE 1+ (NEGATIVE); LEUKOCYTE ESTERASE ,URINE 2+ (NEGATIVE); RBC,URINE TNTC /HPF; SQUAMOUS EPITHELIAL CELL,UR RARE /HPF; WBC,URINE 25-50 /HPF
[2020-08-28 12:27] VITALS: BP 96/71
== END 2020-08-28 12:29 | disposition home or self-care (01) ==
LOC: EDUNIT# 10:10 → ER FS 10:11
DX: C67.9 Malignant neoplasm of bladder, unspecified (principal); D64.89 Other specified anemias; I10 Essential (primary) hypertension; I25.2 Old myocardial infarction; I25.10 Atherosclerotic heart disease of native coronary artery without angina pectoris; E78.00 Pure hypercholesterolemia, unspecified; K21.9 Gastro-esophageal reflux disease without esophagitis; F32.9 Major depressive disorder, single episode, unspecified; F41.9 Anxiety disorder, unspecified; Z87.891 Personal history of nicotine dependence
CPT/HCPCS: 36415; 71045; 80053; 81000; 83735; 84484; 85025; 85610; 85730; 87077; 87088; 87186; 93005; 93041

== ENCOUNTER → 2020-09-17 | Outpatient (CLI) | payer MEDICARE, MEDICAID ==
[2020-09-17] VITALS (7 sets, daily range): BP systolic 85–125; BP diastolic 55–78
[~2020-09-17] MED LIST changes: +NS IV 500 ML 500 ML IV PRN
[2020-09-17 16:06] LABS: HEMOGLOBIN 8.6 g/dL (11.5-16.0)
== END ==
LOC: SDC 07:36
PROVIDERS: ATTEND Physician Assistant
DX: C67.9 Malignant neoplasm of bladder, unspecified (principal)
CPT/HCPCS: 36415; 36430; 85014; 85018; 86850; 86900; 86901; 86920

== ENCOUNTER 2020-09-23 13:04 | Emergency (ER) | payer MEDICARE, MEDICAID ==
[~2020-09-23] VITALS: Ht 175 cm; Wt 92.0 kg
[~2020-09-23 13:04] MED LIST changes: -NS IV 500 ML 500 ML IV PRN
--- NOTE | 2020-09-23 13:22 | ED General ---
General Chief Complaint: General Problems/Pain Stated Complaint: WEAK,LATHARGIC,CONFUSED Source of Information: Patient, Family Exam Limitations: No Limitations History of Present Illness Date Seen by Provider: September 23, 2020 Time Seen by Provider: 13:16 Initial Comments This is a 64-year-old female who presents to the ER with her daughter for complaints of increasing weakness and lethargy. States her mom lives alone and is typically able to ambulate independently with a walker. However over the past few days she has noticed an increase in weakness. Daughter states that patient has a history of bladder cancer and is treated by Dr. Cline at the [facility]. She is getting ready to start a chemo clinical trial and has a follow-up appointment this Monday. However, she has been having difficulty keeping her hemoglobin stable and had a recent blood transfusion last where her hemoglobin was 7.8. States her hemoglobin was checked this Monday and noted at 9.1. Daughter states she continues to have gross amounts of hematuria. No fever, chills, cough, shortness of breath, nausea, vomiting, abdominal pain. Allergies and Home Medications Allergies Coded Allergies: No Known Drug Allergies (Unverified , 06/16/17) Home Medications Albuterol Sulfate 1 Puff Puff, 2 PUFF INH Q4H PRN for SHORTNESS OF BREATH, (Reported) Cefuroxime Axetil 250 Mg Tablet, 250 MG PO BID Prescribed by: JUAN JEREZ on 09/23/20 1533 Cetirizine HCl 10 Mg Tablet, 10 MG PO DAILY, (Reported) Duloxetine HCl 60 Mg Capsule.dr, 60 MG PO BID, (Reported) Ferrous Sulfate 325 Mg Tablet, 325 MG PO BID, (Reported) Folic Acid 1 Mg Tablet, 1 MG PO DAILY, (Reported) Metoprolol Tartrate 50 Mg Tablet, 50 MG PO BID, (Reported) Multivitamins-Min/FA/Ginkgo 1 Each Tablet, 1 TAB PO DAILY, (Reported) Pantoprazole Sodium 40 Mg Tablet.dr, 40 MG PO DAILY, (Reported) Rivastigmine 4.6 Mg Patch, 4.6 MG TD DAILY, (Reported) Patient Home Medication List Home Medication List Reviewed: Yes Review of Systems Review of Systems Constitutional: dizziness; No fever; weakness EENTM: no symptoms reported Respiratory: no symptoms reported Cardiovascular: no symptoms reported Gastrointestinal: no symptoms reported Genitourinary: see HPI Musculoskeletal: muscle weakness Skin: change in color (pale) Psychiatric/Neurological: No Symptoms Reported Hematologic/Lymphatic: No Symptoms Reported Immunological/Allergic: no symptoms reported Past Lzmobvb-Wfwdor-Pqalfg Hx Patient Social History Former Smoker, Quit: Jul 11, 2011 2nd Hand Smoke Exposure: No Recent Hopitalizations: Yes ([facility] for blood transfusions) Immunizations Up To Date Tetanus Booster (TDap): Unknown PED Vaccines UTD: No Date of Pneumonia Vaccine: Feb 18, 2019 Date of Influenza Vaccine: Feb 18, 2019 Seasonal Allergies Seasonal Allergies: Yes (LEAVES AND TREES) Past Medical History Surgeries: Yes (R THR X2, L THR, STENTS X9, COLON RESECTION, MACROPLASTIQUE) Coronary Stent, Gallbladder, Joint Replacement, Tubal Ligation Respiratory: No Currently Using CPAP: No Currently Using BIPAP: No Cardiac: Yes (9 STENTS) Coronary Artery Disease, Heart Attack, High Cholesterol, Hypertension Neurological: No Reproductive Disorders: No Sexually Transmitted Disease: No HIV/AIDS: No Genitourinary: Yes (INCONTINENCY; bladder cancer) Bladder Infection, UTI-Chronic Gastrointestinal: Yes (ESOPHAGEAL STRICTURE) Gastroesophageal Reflux, Chronic Diarrhea Musculoskeletal: Yes ("HIPS DISSINEGRATED") Arthritis, Fractures Endocrine: No HEENT: No (GLASSES, DENTURES) Loss of Vision: Denies Hearing Impairment: Denies, Bilateral Hearing Aide Cancer: Yes Bladder Psychosocial: Yes Anxiety, Depression Integumentary: No Blood Disorders: No Adverse Reaction/Blood Tranf: No (HAS HAD BLOOD WITH NO REACTION) Family Medical History Diabetes mellitus 19 MOTHER G8 BROTHER G8 SISTER Diabetes, Hypertension Physical Exam Vital Signs Vital Signs - First Documented 09/23/20 13:16 Temp 34.7 Pulse 124 Resp 18 B/P (MAP) 103/74 (84) Pulse Ox 97 O2 Delivery Room Air Capillary Refill : Height, Weight, BMI Height: 5'4.00" Weight: 239lbs. 9.0oz. 108.124938hi; 36.00 BMI Method:Stated General Appearance: No Apparent Distress, Chronically ill Eyes: Bilateral Eye PERRL, Bilateral Eye EOMI, Bilateral Eye Conjunctivae Pale HEENT: Moist Mucous Membranes, Pale Conjunctivae (L), Pale Conjunctivae (R); No Scleral Icterus (L), No Scleral Icterus (R) Neck: Full Range of Motion, Normal Inspection, Supple Respiratory: Chest Non Tender, Lungs Clear, Normal Breath Sounds Cardiovascular: Regular Rate, Rhythm, No Edema, No Gallop, Normal Peripheral Pulses Gastrointestinal: Normal Bowel Sounds, Non Tender, Soft, Mass (ventral hernia ) Back: Normal Inspection, No Vertebral Tenderness Extremity: Normal Inspection Neurologic/Psychiatric: Alert, Oriented x3, No Motor/Sensory Deficits, Normal Mood/Affect Skin: Warm/Dry, Pallor Focused Exam Lactate Level 09/23/20 13:50: Lactic Acid Level 1.53 Lactic Acid Level Laboratory Tests Test 09/23/20 13:50 Lactic Acid Level 1.53 MMOL/L (0.50-2.00) Progress/Results/Core Measures Suspected Sepsis SIRS Temperature: Pulse: Respiratory Rate: Laboratory Tests 09/23/20 13:25: White Blood Count 4.2L Blood Pressure / Mean: 09/23/20 13:50: Lactic Acid Level 1.53 Laboratory Tests 09/23/20 13:25: Creatinine 1.24, INR Comment 1.0, Platelet Count 291, Total Bilirubin 0.4 Results/Orders Lab Results Laboratory Tests Test 09/23/20 13:25 09/23/20 13:50 09/23/20 14:38 Range/Units White Blood Count 4.2 L 4.3-11.0 10^3/uL Red Blood Count 3.42 L 3.80-5.11 10^6/uL Hemoglobin 8.9 L 11.5-16.0 g/dL Hematocrit 31 L 35-52 % Mean Corpuscular Volume 91 80-99 fL Mean Corpuscular Hemoglobin 26 25-34 pg Mean Corpuscular Hemoglobin Concent 29 L 32-36 g/dL Red Cell Distribution Width 15.6 H 10.0-14.5 % Platelet Count 291 130-400 10^3/uL Mean Platelet Volume 9.2 9.0-12.2 fL Immature Granulocyte % (Auto) 0 % Neutrophils (%) (Auto) 66 42-75 % Lymphocytes (%) (Auto) 20 12-44 % Monocytes (%) (Auto) 12 0-12 % Eosinophils (%) (Auto) 2 0-10 % Basophils (%) (Auto) 1 0-10 % Neutrophils # (Auto) 2.7 1.8-7.8 10^3/uL Lymphocytes # (Auto) 0.9 L 1.0-4.0 10^3/uL Monocytes # (Auto) 0.5 0.0-1.0 10^3/uL Eosinophils # (Auto) 0.1 0.0-0.3 10^3/uL Basophils # (Auto) 0.0 0.0-0.1 10^3/uL Immature Granulocyte # (Auto) 0.0 0.0-0.1 10^3/uL Prothrombin Time 13.9 12.2-14.7 SEC INR Comment 1.0 0.8-1.4 Activated Partial Thromboplast Time 31 24-35 SEC Sodium Level 139 135-145 MMOL/L Potassium Level 3.8 3.6-5.0 MMOL/L Chloride Level 109 H 98-107 MMOL/L Carbon Dioxide Level 16 L 21-32 MMOL/L Anion Gap 14 5-14 MMOL/L Blood Urea Nitrogen 21 H 7-18 MG/DL Creatinine 1.24 0.60-1.30 MG/DL Estimat Glomerular Filtration Rate 43 BUN/Creatinine Ratio 17 Glucose Level 120 H 70-105 MG/DL Calcium Level 8.7 8.5-10.1 MG/DL Corrected Calcium 9.7 8.5-10.1 MG/DL Total Bilirubin 0.4 0.1-1.0 MG/DL Aspartate Amino Transf (AST/SGOT) 20 5-34 U/L Alanine Aminotransferase (ALT/SGPT) 12 0-55 U/L Alkaline Phosphatase 117 40-136 U/L Troponin I < 0.028 <0.028 NG/ML Total Protein 5.4 L 6.4-8.2 GM/DL Albumin 2.8 L 3.2-4.5 GM/DL Lactic Acid Level 1.53 0.50-2.00 MMOL/L Urine Color RED H Urine Clarity BLOODY H Urine pH 8.0 5-9 Urine Specific [place] 1.010 L 1.016-1.022 Urine Protein 3+ H NEGATIVE Urine Glucose (UA) NEGATIVE NEGATIVE Urine Ketones 2+ H NEGATIVE Urine Nitrite POSITIVE H NEGATIVE Urine Bilirubin NEGATIVE NEGATIVE Urine Urobilinogen 2.0 < = 1.0 MG/DL Urine Leukocyte Esterase 2+ H NEGATIVE Urine RBC (Auto) 3+ H NEGATIVE Urine RBC >100 H /HPF Urine WBC 2-5 /HPF Urine Squamous Epithelial Cells 0-2 /HPF Urine Crystals NONE /LPF Urine Bacteria FEW H /HPF Urine Casts NONE /LPF Urine Mucus SMALL H /LPF Urine Culture Indicated YES My Orders Orders - JUAN JEREZ APRN Ua Culture If Indicated (09/23/20 13:08) Ekg Tracing (09/23/20 13:18) Continuous Ekg Monitoring (09/23/20 13:18) Cbc With Automated Diff (09/23/20 13:18) Comprehensive Metabolic Panel (09/23/20 13:18) Blood Culture (09/23/20 13:18) Sputum Culture (09/23/20 13:18) Protime With Inr (09/23/20 13:18) Partial Thromboplastin Time (09/23/20 13:18) Chest 1 View, Ap/Pa Only (09/23/20 13:18) Ed Iv/Invasive Line Start (09/23/20 13:18) Lactic Acid Analyzer (09/23/20 13:18) Troponin I (09/23/20 13:19) Type And Screen (09/23/20 13:37) Straight Cath For Spec.-Adult (09/23/20 14:18) Ns Iv 1000 Ml (Sodium Chloride 0.9%) (09/23/20 14:30) Urine Culture (09/23/20 14:38) Ceftriaxone For Iv Use (Rocephin For I (09/23/20 15:15) Medications Given in ED Current Medications Medications Dose Ordered Sig/Sandra Route Start Time Stop Time Status Last Admin Dose Admin Ceftriaxone Sodium 1000 mg/ Sterile Water 10 ml @ 200 mls/hr ONCE ONCE IV 09/23/20 15:15 09/23/20 15:17 DC 09/23/20 15:21 200 MLS/HR Sodium Chloride 1,000 ml @ 999 mls/hr Q1H ONCE IV 09/23/20 14:30 09/23/20 15:30 DC 09/23/20 14:27 999 MLS/HR Vital Signs/I&O 09/23/20 09/23/20 13:16 15:45 Temp 34.7 34.7 Pulse 124 95 Resp 18 18 B/P (MAP) 103/74 (84) 122/63 (84) Pulse Ox 97 97 O2 Delivery Room Air Room Air Capillary Refill : Progress Note : Progress Note Patient examined and in no acute distress. She appears pale and fatigued. Initial concern is for anemia due to gross amounts of hematuria. Due to low blood pressure and tachycardia will initiate sepsis work-up as this could also be from urosepsis. Orders placed for normal saline 1 L. Labs reviewed show mild dehydration and nitrite positive UTI. Given Rocephin 1 g and a total of 1 L fluids in the ER. Reviewed discharge plan of care with daughter and she is agreeable with plan. No questions or concerns at time of discharge. ECG Initial ECG Impression Date: September 23, 2020 Initial ECG Impression Time: 13:14 Initial ECG Rate: 115 Initial ECG Rhythm: S.Tach Diagnostic Imaging Diagonstic Imaging: Xray Plain Films/CT/US/NM/MRI: chest Comments NAME: PATRICIA BRE[facility]ER [facility] REC#: [id number] PT STATUS: REG ER : 1955 PHYSICIAN: JUAN JEREZ APRN ADMIT DATE: 09/23/20/ER Draft Date of Exam:09/23/20 CHEST 1 VIEW, AP/PA ONLY INDICATION: Sepsis. AP view of the chest is obtained with comparison made to study of 08/28/2020. There is suboptimal inspiration with mild left basilar atelectasis and/or scarring. No pneumothorax or consolidation is identified. Advanced degenerative findings are seen in both shoulders. IMPRESSION: Continued atelectasis and/or scarring in the left base. Otherwise, no acute abnormality or adverse change is seen. Dictated on workstation # [id number] Dict: 09/23/20 1409 Trans: 09/23/20 1412 [facility] [id number] Interpreted by: CED OLIVAS MD Electronically signed by: Reviewed: Reviewed by Me Departure Impression Primary Impression: Mild dehydration Additional Impression: UTI (urinary tract infection) Disposition: 01 HOME, SELF-CARE Condition: Improved Departure-Patient Inst. Decision time for Depature: 15:27 Referrals: NO,LOCAL PHYSICIAN (PCP) Primary Care Physician EVELYNE ANTON APRN (Family) Primary Care Physician Patient Instructions: Urinary Tract Infection, Adult (DC) Add. Discharge Instructions: Plan: 1. Drink plenty of fluids and increase nutritional intake. May use supplements such as ensure. 2. Take all of your antibiotics as directed and complete full course. Do not take with Pantoprazole. Take at least an hour before. 3. Keep your follow up with your oncologist as previously scheduled. 4. Return for any new or worsening symptoms. All discharge instructions reviewed with patient and/or family. Voiced understanding. Scripts Cefuroxime Axetil (Cefuroxime) 250 Mg Tablet 250 MG PO BID for 10 Days, #20 TAB 0 Refills Prov: JUAN JEREZ MECHANICAL ENGINEERING LECTURER 09/23/20 JUAN JEREZ MECHANICAL ENGINEERING LECTURER September 23, 2020 13:21
[2020-09-23 13:41] LABS: BASOPHILS % (AUTO) 1 % (0-10); EOSINOPHILS # (AUTO) 0.1 10^3/uL (0.0-0.3); EOSINOPHILS % (AUTO) 2 % (0-10); HEMATOCRIT 31 % (35-52); HEMOGLOBIN 8.9 g/dL (11.5-16.0); LYMPHOCYTES # (AUTO) 0.9 10^3/uL (1.0-4.0); LYMPHOCYTES % (AUTO) 20 % (12-44); MEAN CORPUSCULAR HEMOGLOBIN 26 pg (25-34); MEAN CORPUSCULAR HGB CONC 29 g/dL (32-36); MEAN CORPUSCULAR VOLUME 91 fL (80-99); MEAN PLATELET VOLUME 9.2 fL (9.0-12.2); MONOCYTES # (AUTO) 0.5 10^3/uL (0.0-1.0); MONOCYTES % (AUTO) 12 % (0-12); NEUTROPHILS # (AUTO) 2.7 10^3/uL (1.8-7.8); NEUTROPHILS % (AUTO) 66 % (42-75); PLATELET COUNT 291 10^3/uL (130-400); WHITE BLOOD COUNT 4.2 10^3/uL (4.3-11.0)
[2020-09-23 13:51] LABS: ALBUMIN 2.8 GM/DL (3.2-4.5); CHLORIDE 109 MMOL/L (98-107); POTASSIUM 3.8 MMOL/L (3.6-5.0); SODIUM 139 MMOL/L (135-145)
[2020-09-23 13:52] LABS: CALCIUM 8.7 MG/DL (8.5-10.1)
[2020-09-23 13:53] LABS: GLUCOSE 120 MG/DL (70-105)
[2020-09-23 13:54] LABS: TOTAL PROTEIN 5.4 GM/DL (6.4-8.2)
[2020-09-23 13:55] LABS: BILIRUBIN,TOTAL 0.4 MG/DL (0.1-1.0); CARBON DIOXIDE 16 MMOL/L (21-32)
[2020-09-23 13:57] LABS: ALKALINE PHOSPHATASE 117 U/L (40-136); CREATININE SERUM 1.24 MG/DL (0.60-1.30); GFR ESTIMATED 43
[2020-09-23 13:58] LABS: BUN/CREATININE RATIO 17; PROTHROMBIN TIME PATIENT 13.9 SEC (12.2-14.7)
[2020-09-23 14:00] LABS: ALANINE AMINOTRANSFERASE 12 U/L (0-55)
--- NOTE | 2020-09-23 14:12 | Diagnostic Imaging Report ---
INDICATION: Sepsis. AP view of the chest is obtained with comparison made to study of 08/28/2020. There is suboptimal inspiration with mild left basilar atelectasis and/or scarring. No pneumothorax or consolidation is identified. Advanced degenerative findings are seen in both shoulders. IMPRESSION: Continued atelectasis and/or scarring in the left base. Otherwise, no acute abnormality or adverse change is seen. Dictated by: Dictated on workstation # [id number]
[2020-09-23] MEDS ORDERED: NS IV 1000 ML 1,000 ML IV ONE (14:30)
[2020-09-23 14:58] LABS: CLARITY,URINE BLOODY; GLUCOSE, URINE (UA) NEGATIVE (NEGATIVE); KETONES,URINE 2+ (NEGATIVE); NITRITE,URINE POSITIVE (NEGATIVE); PROTEIN,URINE 3+ (NEGATIVE)
[2020-09-23 14:59] LABS: LEUKOCYTE ESTERASE ,URINE 2+ (NEGATIVE)
[2020-09-23 15:00] LABS: COLOR,URINE RED
[2020-09-23 15:02] LABS: BILIRUBIN,URINE NEGATIVE (NEGATIVE)
[2020-09-23 15:04] LABS: BACTERIA,URINE FEW /HPF; RBC,URINE >100 /HPF
[2020-09-23 15:05] LABS: SQUAMOUS EPITHELIAL CELL,UR 0-2 /HPF
[2020-09-23] MEDS ORDERED: cefTRIAXone FOR IV USE 1,000 MG in WATER (STERILE) FOR INJECTION 10 ML IV ONE (15:15)
[2020-09-23] MEDS ORDERED: CEFU250T80 PO (15:33)
[2020-09-23 15:45] VITALS: BP 122/63
== END 2020-09-23 15:45 | disposition home or self-care (01) ==
LOC: EDUNIT# 13:04 → ER 13:06
DX: E86.0 Dehydration (principal); N39.0 Urinary tract infection, site not specified; D49.4 Neoplasm of unspecified behavior of bladder; R00.0 Tachycardia, unspecified; R03.1 Nonspecific low blood-pressure reading; I11.0 Hypertensive heart disease with heart failure; I50.9 Heart failure, unspecified; I25.10 Atherosclerotic heart disease of native coronary artery without angina pectoris; F41.9 Anxiety disorder, unspecified; F32.9 Major depressive disorder, single episode, unspecified; K21.9 Gastro-esophageal reflux disease without esophagitis; Z95.5 Presence of coronary angioplasty implant and graft; Z87.891 Personal history of nicotine dependence; Z79.899 Other long term (current) drug therapy
CPT/HCPCS: 36415; 51701; 71045; 80053; 81000; 83605; 84484; 85025; 85610; 85730; 86850; 86900; 86901; 87040; 87077; 87088; 87186; 93005

== ENCOUNTER 2020-09-27 08:38 | Emergency (ER) | payer MEDICARE, MEDICAID ==
[~2020-09-27 08:38] MED LIST changes: +CEFU250T80 PO
--- NOTE | 2020-09-27 08:49 | ED General ---
General Chief Complaint: Trauma-Non Activation Stated Complaint: FALL History of Present Illness Date Seen by Provider: September 27, 2020 Time Seen by Provider: 08:49 Initial Comments Patient presenting to the emergency department from assisted living facility for evaluation of an apparent fall or syncopal episode as someone called 911 and she was brought here by EMS. EMS reports that she was found on the ground and she was covered in feces. She is complaining of pain in her left shoulder and left hip. I asked her what happened and she says she is unsure as she was said to have surgery on her left shoulder today. I told her it is Monday and doubt she was going to have surgery today and she was uncertain. Patient is alert and oriented x3 but she does seem to be very confused about her medical history. It appears the patient was in the emergency department 4 days ago for hematuria and was started on antibiotics. Reportedly her baseline is oriented and able to ambulate unassisted. She does have a history of bladder cancer and not sure if she is undergoing chemotherapy or radiation. She does require intermittent transfusions and reportedly had one just last week. She is in no obvious distress but is hypotensive on initial vital signs. Allergies and Home Medications Allergies Coded Allergies: No Known Drug Allergies (Unverified , 06/16/17) Home Medications Albuterol Sulfate 1 Puff Puff, 2 PUFF INH Q4H PRN for SHORTNESS OF BREATH, (Reported) Cefuroxime Axetil 250 Mg Tablet, 250 MG PO BID Prescribed by: JUAN JEREZ on 09/23/20 1533 Cetirizine HCl 10 Mg Tablet, 10 MG PO DAILY, (Reported) Duloxetine HCl 60 Mg Capsule.dr, 60 MG PO BID, (Reported) Ferrous Sulfate 325 Mg Tablet, 325 MG PO BID, (Reported) Folic Acid 1 Mg Tablet, 1 MG PO DAILY, (Reported) Metoprolol Tartrate 50 Mg Tablet, 50 MG PO BID, (Reported) Multivitamins-Min/FA/Ginkgo 1 Each Tablet, 1 TAB PO DAILY, (Reported) Pantoprazole Sodium 40 Mg Tablet.dr, 40 MG PO DAILY, (Reported) Rivastigmine 4.6 Mg Patch, 4.6 MG TD DAILY, (Reported) Patient Home Medication List Home Medication List Reviewed: Yes Review of Systems Review of Systems Constitutional: no symptoms reported EENTM: no symptoms reported Respiratory: no symptoms reported Cardiovascular: no symptoms reported Gastrointestinal: no symptoms reported Genitourinary: hematuria Musculoskeletal: joint pain Skin: no symptoms reported Psychiatric/Neurological: No Symptoms Reported All Other Systems Reviewed Negative Unless Noted: Yes Past Axscmku-Dzgzez-Qhdywz Hx Patient Social History Former Smoker, Quit: Jul 11, 2011 2nd Hand Smoke Exposure: No Recent Hopitalizations: Yes ([place] for blood transfusions 01/2020) Immunizations Up To Date Tetanus Booster (TDap): Unknown PED Vaccines UTD: No Date of Pneumonia Vaccine: Feb 18, 2019 Date of Influenza Vaccine: Feb 18, 2019 Seasonal Allergies Seasonal Allergies: Yes (LEAVES AND TREES) Past Medical History Surgeries: Yes (R THR X2, L THR, STENTS X9, COLON RESECTION, MACROPLASTIQUE) Coronary Stent, Gallbladder, Joint Replacement, Tubal Ligation Respiratory: No Currently Using CPAP: No Currently Using BIPAP: No Cardiac: Yes (9 STENTS) Coronary Artery Disease, Heart Attack, High Cholesterol, Hypertension Neurological: No Reproductive Disorders: No Sexually Transmitted Disease: No HIV/AIDS: No Genitourinary: Yes (INCONTINENCY; bladder cancer) Bladder Infection, UTI-Chronic Gastrointestinal: Yes (ESOPHAGEAL STRICTURE) Gastroesophageal Reflux, Chronic Diarrhea Musculoskeletal: Yes ("HIPS DISSINEGRATED") Arthritis, Fractures Endocrine: No HEENT: No (GLASSES, DENTURES) Loss of Vision: Denies Hearing Impairment: Denies, Bilateral Hearing Aide Cancer: Yes Bladder Psychosocial: Yes Anxiety, Depression Integumentary: No Blood Disorders: No Adverse Reaction/Blood Tranf: No (HAS HAD BLOOD WITH NO REACTION) Family Medical History Diabetes mellitus 19 MOTHER G8 BROTHER G8 SISTER Diabetes, Hypertension Physical Exam Vital Signs Vital Signs - First Documented 09/27/20 08:43 Temp 36.1 Pulse 84 Resp 18 B/P (MAP) 91/62 (72) Pulse Ox 100 Capillary Refill : Height, Weight, BMI Height: 5'4.00" Weight: 239lbs. 9.0oz. 108.456786ul; 30.00 BMI Method:Stated General Appearance: Chronically ill Eyes: Bilateral Eye Normal Inspection HEENT: PERRL/EOMI Neck: Supple Respiratory: Lungs Clear, No Respiratory Distress Cardiovascular: Regular Rate, Rhythm Gastrointestinal: Non Tender, Soft Rectal: Heme Positive Stool Genital/Rectal: Other (hematuria noted) Extremity: Normal Capillary Refill Neurologic/Psychiatric: Alert, Oriented x3 Skin: Pallor Focused Exam Lactate Level 09/27/20 09:10: Lactic Acid Level 1.71 Lactic Acid Level Laboratory Tests Test 09/27/20 09:10 Lactic Acid Level 1.71 MMOL/L (0.50-2.00) Progress/Results/Core Measures Suspected Sepsis SIRS Temperature: Pulse: Respiratory Rate: Laboratory Tests 09/27/20 09:10: White Blood Count 9.4 Blood Pressure / Mean: 09/27/20 09:10: Lactic Acid Level 1.71 Laboratory Tests 09/27/20 09:10: Creatinine 1.27, INR Comment 1.1, Platelet Count 410H, Total Bilirubin 0.4 Results/Orders Lab Results Laboratory Tests Test 09/27/20 09:10 09/27/20 09:32 Range/Units White Blood Count 9.4 4.3-11.0 10^3/uL Red Blood Count 3.28 L 4.35-5.85 10^6/uL Hemoglobin 8.7 L 11.5-16.0 G/DL Hematocrit 31 L 35-52 % Mean Corpuscular Volume 93 80-99 FL Mean Corpuscular Hemoglobin 27 25-34 PG Mean Corpuscular Hemoglobin Concent 28 L 32-36 G/DL Red Cell Distribution Width 16.7 H 10.0-14.5 % Platelet Count 410 H 130-400 10^3/uL Mean Platelet Volume 8.7 7.4-10.4 FL Immature Granulocyte % (Auto) 0 % Neutrophils (%) (Auto) 80 H 42-75 % Lymphocytes (%) (Auto) 9 L 12-44 % Monocytes (%) (Auto) 10 0-12 % Eosinophils (%) (Auto) 0 0-10 % Basophils (%) (Auto) 0 0-10 % Neutrophils # (Auto) 7.5 1.8-7.8 X 10^3 Lymphocytes # (Auto) 0.9 L 1.0-4.0 X 10^3 Monocytes # (Auto) 1.0 0.0-1.0 X 10^3 Eosinophils # (Auto) 0.0 0.0-0.3 10^3/uL Basophils # (Auto) 0.0 0.0-0.1 10^3/uL Immature Granulocyte # (Auto) 0.0 0.0-0.1 10^3/uL Percent Immature Platelet Fraction 1.0 0.0-7.6 % Prothrombin Time 14.3 12.2-14.7 SEC INR Comment 1.1 0.8-1.4 Activated Partial Thromboplast Time 38 H 24-35 SEC Sodium Level 136 135-145 MMOL/L Potassium Level 4.3 3.6-5.0 MMOL/L Chloride Level 106 98-107 MMOL/L Carbon Dioxide Level 21 21-32 MMOL/L Anion Gap 9 5-14 MMOL/L Blood Urea Nitrogen 22 H 7-18 MG/DL Creatinine 1.27 0.60-1.30 MG/DL Estimat Glomerular Filtration Rate 42 BUN/Creatinine Ratio 17 Glucose Level 119 H 70-105 MG/DL Lactic Acid Level 1.71 0.50-2.00 MMOL/L Calcium Level 9.4 8.5-10.1 MG/DL Corrected Calcium 10.6 H 8.5-10.1 MG/DL Total Bilirubin 0.4 0.1-1.0 MG/DL Aspartate Amino Transf (AST/SGOT) 13 5-34 U/L Alanine Aminotransferase (ALT/SGPT) 9 0-55 U/L Alkaline Phosphatase 132 40-136 U/L Troponin I < 0.30 <0.30 NG/ML Pro-B-Type Natriuretic Peptide 580.3 H <75.0 PG/ML Total Protein 5.1 L 6.4-8.2 GM/DL Albumin 2.5 L 3.2-4.5 GM/DL Lipase 10 8-78 U/L Urine Color RED H Urine Clarity CLOUDY Urine pH 7.0 5-9 Urine Specific [place] 1.010 L 1.016-1.022 Urine Protein 3+ H NEGATIVE Urine Glucose (UA) 1+ H NEGATIVE Urine Ketones 1+ H NEGATIVE Urine Nitrite POSITIVE H NEGATIVE Urine Bilirubin 3+ H NEGATIVE Urine Urobilinogen >=8.0 < = 1.0 MG/DL Urine Leukocyte Esterase 2+ H NEGATIVE Urine RBC (Auto) 3+ H NEGATIVE Urine RBC TNTC H /HPF Urine WBC /HPF Urine Crystals NONE /LPF Urine Bacteria /HPF Urine Casts NONE /LPF Urine Mucus NEGATIVE /LPF Urine Culture Indicated YES My Orders Orders - RAY CHAWLA DO Iv/Invasive Line Insertion .IV start (09/27/20 08:50) Cbc With Automated Diff (09/27/20 08:50) Comprehensive Metabolic Panel (09/27/20 08:50) Blood Culture (09/27/20 08:50) Chest 1 View Ap/Pa Only (09/27/20 08:50) Ua Culture If Indicated (09/27/20 08:50) Ekg Tracing (09/27/20 08:50) Troponin I Fs (09/27/20 08:50) Lactic Acid Analyzer (09/27/20 08:50) Lipase (09/27/20 08:50) Partial Thromboplastin Time (09/27/20 08:50) Protime With Inr (09/27/20 08:50) Probnp Fs (09/27/20 08:50) Shoulder 3 View Left (09/27/20 08:50) Hip 2-3 View Left (09/27/20 08:50) Creatine Kinase (09/27/20 08:55) Urine Culture (09/27/20 09:32) Ct Head/Cervical Spine Wo (09/27/20 08:50) Ns Iv 1000 Ml (Sodium Chloride 0.9%) (09/27/20 10:30) Vital Signs/I&O 09/27/20 08:43 Temp 36.1 Pulse 84 Resp 18 B/P (MAP) 91/62 (72) Pulse Ox 100 Capillary Refill : Progress Note : Progress Note Patient with unknown mechanism being on the ground and not being able to get up and was covered in feces. I will check labs imaging and likely plan for admission given circumstances but daughter is reportedly coming to the hospital so I will speak with her further. Daughter is requesting that patient be transferred to [facility]. Patient essentially has a failure to thrive, encephalopthy, UTI, anemia. Patient accepted at [facility] by Dr. Ray Mann. Patient transferred in stable condition. Departure Impression Primary Impression: UTI (urinary tract infection) Qualified Codes: N39.0 - Urinary tract infection, site not specified; R31.9 - Hematuria, unspecified Additional Impressions: Acute encephalopathy Bladder cancer Anemia Disposition: XF SHT-TRM HOSP Condition: Unchanged Transfer Transfer Reason: Exceeds level of care Transfer Facility: [facility] at patient's daughters request Method of Transfer: EMS Departure-Patient Inst. Referrals: NO,LOCAL PHYSICIAN (PCP) Primary Care Physician EVELYNE ANTON APRN (Family) Primary Care Physician RAY CHAWLA DO September 27, 2020 08:49
[2020-09-27 09:23] LABS: BASOPHILS % (AUTO) 0 % (0-10); EOSINOPHILS % (AUTO) 0 % (0-10); HEMATOCRIT 31 % (35-52); HEMOGLOBIN 8.7 G/DL (11.5-16.0); LYMPHOCYTES # (AUTO) 0.9 X 10^3 (1.0-4.0); LYMPHOCYTES % (AUTO) 9 % (12-44); MEAN CORPUSCULAR HEMOGLOBIN 27 PG (25-34); MEAN CORPUSCULAR HGB CONC 28 G/DL (32-36); MEAN CORPUSCULAR VOLUME 93 FL (80-99); MEAN PLATELET VOLUME 8.7 FL (7.4-10.4); MONOCYTES % (AUTO) 10 % (0-12); NEUTROPHILS # (AUTO) 7.5 X 10^3 (1.8-7.8); NEUTROPHILS % (AUTO) 80 % (42-75); PLATELET COUNT 410 10^3/uL (130-400); WHITE BLOOD COUNT 9.4 10^3/uL (4.3-11.0)
[2020-09-27 09:34] LABS: INR 1.1 (0.8-1.4); PROTHROMBIN TIME PATIENT 14.3 SEC (12.2-14.7)
[2020-09-27 09:45] LABS: ALANINE AMINOTRANSFERASE 9 U/L (0-55); ALBUMIN 2.5 GM/DL (3.2-4.5); ALKALINE PHOSPHATASE 132 U/L (40-136); BILIRUBIN,TOTAL 0.4 MG/DL (0.1-1.0); BUN/CREATININE RATIO 17; CALCIUM 9.4 MG/DL (8.5-10.1); CARBON DIOXIDE 21 MMOL/L (21-32); CHLORIDE 106 MMOL/L (98-107); CREATININE SERUM 1.27 MG/DL (0.60-1.30); GFR ESTIMATED 42; GLUCOSE 119 MG/DL (70-105); LIPASE 10 U/L (8-78); POTASSIUM 4.3 MMOL/L (3.6-5.0); SODIUM 136 MMOL/L (135-145); TOTAL PROTEIN 5.1 GM/DL (6.4-8.2)
[2020-09-27 09:45] LABS: CLARITY,URINE CLOUDY; COLOR,URINE RED
[2020-09-27 09:49] LABS: RBC,URINE TNTC /HPF
[2020-09-27 10:00] LABS: BILIRUBIN,URINE 3+ (NEGATIVE); GLUCOSE, URINE (UA) 1+ (NEGATIVE); KETONES,URINE 1+ (NEGATIVE); NITRITE,URINE POSITIVE (NEGATIVE); PROTEIN,URINE 3+ (NEGATIVE)
[2020-09-27 10:01] LABS: LEUKOCYTE ESTERASE ,URINE 2+ (NEGATIVE)
[2020-09-27] MEDS ORDERED: NS IV 1000 ML 1,000 ML IV SCH (10:30)
--- NOTE | 2020-09-27 10:33 | Diagnostic Imaging Report ---
EXAMINATION: Chest 1 view HISTORY: Fall. Chest pain. COMPARISON: 09/23/2020. FINDINGS: The lung volumes are normal. No focal consolidation is seen. Scarring/atelectasis is seen in the left lung base, similar to the prior exam. No large pleural effusion or pneumothorax is seen. The cardiomediastinal silhouette is stable in size. No acute osseous abnormality is seen. IMPRESSION: 1. No acute pleuroparenchymal process. Dictated by: Dictated on workstation # [id number]
--- NOTE | 2020-09-27 10:33 | Diagnostic Imaging Report ---
CLINICAL HISTORY: Fall. Left hip pain. COMPARISON: None. TECHNIQUE: 2 views of the left hip. FINDINGS: There is no acute fracture or dislocation of the left hip. Left hip arthroplasty changes are noted. No periprosthetic fracture is seen. Alignment is anatomic. IMPRESSION: 1. No acute fracture or dislocation of the left hip. 2. Left total hip arthroplasty changes. No periprosthetic fracture. Dictated by: Dictated on workstation # [id number]
--- NOTE | 2020-09-27 10:38 | Diagnostic Imaging Report ---
INDICATION: Fall, left shoulder pain. TIME OF EXAM: 10:11 AM Multiple views of the left shoulder demonstrate severe glenohumeral joint degenerative changes with joint space narrowing, sclerosis and subchondral cyst formation. There is slight superior migration of the humeral head with narrowing of the acromiohumeral space, likely owing to chronic rotator cuff arthropathy. Acromioclavicular alignment is normal. No fractures are seen. IMPRESSION: Chronic degenerative changes. No acute bony abnormality is detected. Dictated by: Dictated on workstation # [id number]
--- NOTE | 2020-09-27 10:46 | Diagnostic Imaging Report ---
PROCEDURE: CT head and CT cervical spine without contrast. TECHNIQUE: Multiple contiguous axial images were obtained through the brain and cervical spine without the use of intravenous contrast. Sagittal and coronal reformations through the cervical spine were then performed. Auto Exposure Controls were utilized during the CT exam to meet ALARA standards for radiation dose reduction. INDICATION: Fall. COMPARISON: No prior studies are available for comparison. CT HEAD: Ventricles and sulci are within normal limits. No sulcal effacement or midline shift is identified. No acute intra-axial or extra-axial hemorrhage is detected. Cisterns are patent. Visualized paranasal sinuses are clear. IMPRESSION: No acute intracranial process is detected. CT CERVICAL SPINE: Curvature of the cervical spine is normal. There is minimal retrolisthesis of C3 on C4. There is multilevel degenerative disc disease with variable disc space narrowing and marginal spurring. This is most severe at C4-C5 through C7-T1 levels. No definite fracture is identified. Prevertebral tissues are normal. IMPRESSION: Severe cervical spondylosis. No acute bony abnormality is detected. Dictated by: Dictated on workstation # [id number]
[2020-09-27] MEDS ORDERED: ACETAMINOPHEN 500 MG TAB (TYLENOL) PO ONE (17:45)
[2020-09-27 19:45] VITALS: BP 108/79
== END 2020-09-27 19:45 | disposition short-term general hospital (02) ==
LOC: EDUNIT# 08:38 → ER FS 08:41
DX: R62.7 Adult failure to thrive (principal); C67.9 Malignant neoplasm of bladder, unspecified; G93.40 Encephalopathy, unspecified; N39.0 Urinary tract infection, site not specified; D64.9 Anemia, unspecified; I11.0 Hypertensive heart disease with heart failure; I50.9 Heart failure, unspecified; I25.10 Atherosclerotic heart disease of native coronary artery without angina pectoris; K21.9 Gastro-esophageal reflux disease without esophagitis; F41.9 Anxiety disorder, unspecified; F32.9 Major depressive disorder, single episode, unspecified; Z87.891 Personal history of nicotine dependence; Z95.5 Presence of coronary angioplasty implant and graft; Z79.899 Other long term (current) drug therapy
CPT/HCPCS: 36415; 70450; 71045; 72125; 73030; 73502; 80053; 81000; 82550; 83605; 83690; 83880; 84484; 85025; 85610; 85730; 87040; 87088; 93005

== ENCOUNTER 2020-11-20 12:26 | Inpatient (IN) | payer MEDICARE, MEDICAID ==
[~2020-11-20] VITALS: Ht 162.6 cm; Wt 108.7 kg
[~2020-11-20 12:26] MED LIST changes: -SULF1TAB35 PO; +SULF1TAB38 PO
[2020-11-20] MEDS ORDERED: NS IV 1000 ML 1,000 ML IV STA ×2 (12:39→13:15)
--- NOTE | 2020-11-20 12:41 | ED General ---
General Chief Complaint: Altered Mental Status Stated Complaint: AMS Source of Information: Patient, EMS, Family (daughter) History of Present Illness Date Seen by Provider: Nov 20, 2020 Time Seen by Provider: 12:26 Initial Comments 65-year-old female presenting by EMS from [facility] due to auditory and visual hallucinations since this morning. She has a history of bladder cancer and gets frequent UTIs. She has only been living back at home and outside of [facility] for the last 2 weeks. She had called her daughter stating that she was seeing people and hearing voices. Her daughter reports calling [facility] and being told to bring her into the emergency department for evaluation. EMS states that initially her blood pressure was 90 systolic and quickly came up with some IV fluids. She was afebrile on arrival to the ED. She was aware of seeing people that were not there and voices that were not real. She denies having happened to her before. She denies any head injury or fall. She has chronic blood in her urine due to the bladder cancer and states that is not any different than usual. She is incontinent of urine and that is chronic. She has been having more subjective fever chills in the last 24 hours. She does not eat or drink very well at home. Associated Systoms: No Chest Pain, No Cough, No Diaphoresis; Fever/Chills (Subjective); No Headaches, No Loss of Appetite; Malaise; No Nausea/Vomiting, No Rash, No Seizure, No Shortness of Air, No Syncope; Weakness (Generalized) Allergies and Home Medications Allergies Coded Allergies: No Known Drug Allergies (Unverified , 06/16/17) Home Medications Albuterol Sulfate 1 Puff Puff, 2 PUFF INH Q4H PRN for SHORTNESS OF BREATH, (Reported) Cefuroxime Axetil 250 Mg Tablet, 250 MG PO BID Prescribed by: JUAN JEREZ on 09/23/20 153 Cetirizine HCl 10 Mg Tablet, 10 MG PO DAILY, (Reported) Duloxetine HCl 60 Mg Capsule.dr, 60 MG PO BID, (Reported) Ferrous Sulfate 325 Mg Tablet, 325 MG PO BID, (Reported) Folic Acid 1 Mg Tablet, 1 MG PO DAILY, (Reported) Metoprolol Tartrate 50 Mg Tablet, 50 MG PO BID, (Reported) Multivitamins-Min/FA/Ginkgo 1 Each Tablet, 1 TAB PO DAILY, (Reported) Pantoprazole Sodium 40 Mg Tablet.dr, 40 MG PO DAILY, (Reported) Rivastigmine 4.6 Mg Patch, 4.6 MG TD DAILY, (Reported) Patient Home Medication List Home Medication List Reviewed: Yes Review of Systems Review of Systems Constitutional: see HPI EENTM: no symptoms reported Respiratory: no symptoms reported Cardiovascular: no symptoms reported Gastrointestinal: no symptoms reported Genitourinary: see HPI Musculoskeletal: joint pain (Chronic issues of the left shoulder joint and rotator cuff causing her pain. Chronic issues with her hips due to prior hip replacement surgery) Skin: no symptoms reported Psychiatric/Neurological: See HPI Past Eutgcxo-Cbuwua-Rswigp Hx Immunizations Up To Date Tetanus Booster (TDap): Unknown PED Vaccines UTD: No Seasonal Allergies Seasonal Allergies: Yes (LEAVES AND TREES) Past Medical History Surgeries: Yes (R THR X2, L THR, STENTS X9, COLON RESECTION, MACROPLASTIQUE) Coronary Stent, Gallbladder, Joint Replacement, Tubal Ligation Respiratory: No Currently Using CPAP: No Currently Using BIPAP: No Cardiac: Yes (9 STENTS) Coronary Artery Disease, Heart Attack, High Cholesterol, Hypertension Neurological: No Reproductive Disorders: No Sexually Transmitted Disease: No HIV/AIDS: No Genitourinary: Yes (INCONTINENCY; bladder cancer) Bladder Infection, UTI-Chronic Gastrointestinal: Yes (ESOPHAGEAL STRICTURE) Gastroesophageal Reflux, Chronic Diarrhea Musculoskeletal: Yes ("HIPS DISSINEGRATED") Arthritis, Fractures Endocrine: No HEENT: No (GLASSES, DENTURES) Loss of Vision: Denies Hearing Impairment: Denies, Bilateral Hearing Aide Cancer: Yes Bladder Psychosocial: Yes Anxiety, Depression Integumentary: No Blood Disorders: No Adverse Reaction/Blood Tranf: No (HAS HAD BLOOD WITH NO REACTION) Family Medical History Diabetes mellitus 19 MOTHER G8 BROTHER G8 SISTER Diabetes, Hypertension Physical Exam Vital Signs Vital Signs - First Documented 11/20/20 12:26 Temp 36.7 Pulse 87 Resp 16 B/P (MAP) 111/63 (79) Pulse Ox 98 O2 Delivery Room Air Capillary Refill : Height, Weight, BMI Height: 5'4.00" Weight: 239lbs. 9.0oz. 108.276424pf; 30.00 BMI Method:Stated General Appearance: No Apparent Distress, Chronically ill HEENT: No Moist Mucous Membranes (Slightly dry mucous membranes) Neck: Non Tender, Supple Respiratory: Chest Non Tender, No Accessory Muscle Use, No Respiratory Distress, Decreased Breath Sounds Cardiovascular: Regular Rate, Rhythm, Normal Peripheral Pulses Gastrointestinal: Normal Bowel Sounds, No Pulsatile Mass, Non Tender, Soft, Hernia (Ventral hernia present) Rectal: Deferred Extremity: Normal Capillary Refill, No Pedal Edema Neurologic/Psychiatric: Alert, Oriented x3, No Motor/Sensory Deficits, perianesthesia rn II- XII Norm as Tested Skin: Warm/Dry, Pallor Focused Exam Lactate Level 11/20/20 12:29: Lactic Acid Level 2.75*H Lactic Acid Level Laboratory Tests Test 11/20/20 12:29 Lactic Acid Level 2.75 MMOL/L (0.50-2.00) *H Progress/Results/Core Measures Suspected Sepsis SIRS Temperature: Pulse: Respiratory Rate: Laboratory Tests 11/20/20 12:29: White Blood Count 4.5 Blood Pressure / Mean: 11/20/20 12:29: Lactic Acid Level 2.75*H Laboratory Tests 11/20/20 12:29: Creatinine 1.70H, Platelet Count 312, Total Bilirubin 0.3 Results/Orders Lab Results Laboratory Tests Test 11/20/20 12:29 11/20/20 12:43 Range/Units White Blood Count 4.5 4.3-11.0 10^3/uL Red Blood Count 3.50 L 4.35-5.85 10^6/uL Hemoglobin 9.9 L 11.5-16.0 G/DL Hematocrit 33 L 35-52 % Mean Corpuscular Volume 94 80-99 FL Mean Corpuscular Hemoglobin 28 25-34 PG Mean Corpuscular Hemoglobin Concent 30 L 32-36 G/DL Red Cell Distribution Width 21.0 H 10.0-14.5 % Platelet Count 312 130-400 10^3/uL Mean Platelet Volume 8.8 7.4-10.4 FL Immature Granulocyte % (Auto) 0 % Neutrophils (%) (Auto) 74 42-75 % Lymphocytes (%) (Auto) 11 L 12-44 % Monocytes (%) (Auto) 14 H 0-12 % Eosinophils (%) (Auto) 0 0-10 % Basophils (%) (Auto) 0 0-10 % Neutrophils # (Auto) 3.3 1.8-7.8 X 10^3 Lymphocytes # (Auto) 0.5 L 1.0-4.0 X 10^3 Monocytes # (Auto) 0.6 0.0-1.0 X 10^3 Eosinophils # (Auto) 0.0 0.0-0.3 10^3/uL Basophils # (Auto) 0.0 0.0-0.1 10^3/uL Immature Granulocyte # (Auto) 0.0 0.0-0.1 10^3/uL Sodium Level 136 135-145 MMOL/L Potassium Level 4.5 3.6-5.0 MMOL/L Chloride Level 105 98-107 MMOL/L Carbon Dioxide Level 19 L 21-32 MMOL/L Anion Gap 12 5-14 MMOL/L Blood Urea Nitrogen 35 H 7-18 MG/DL Creatinine 1.70 H 0.60-1.30 MG/DL Estimat Glomerular Filtration Rate 30 BUN/Creatinine Ratio 21 Glucose Level 111 H 70-105 MG/DL Lactic Acid Level 2.75 *H 0.50-2.00 MMOL/L Calcium Level 8.5 8.5-10.1 MG/DL Corrected Calcium 9.8 8.5-10.1 MG/DL Total Bilirubin 0.3 0.1-1.0 MG/DL Aspartate Amino Transf (AST/SGOT) 20 5-34 U/L Alanine Aminotransferase (ALT/SGPT) 12 0-55 U/L Alkaline Phosphatase 208 H 40-136 U/L Total Protein 5.2 L 6.4-8.2 GM/DL Albumin 2.4 L 3.2-4.5 GM/DL Salicylates Level < 0.3 L 5.0-20.0 MG/DL Acetaminophen Level 17 10-30 UG/ML Serum Alcohol < 10 <10 MG/DL Urine Color RED H Urine Clarity TURBID Urine pH 6.5 5-9 Urine Specific [place] 1.020 1.016-1.022 Urine Protein 3+ H NEGATIVE Urine Glucose (UA) NEGATIVE NEGATIVE Urine Ketones TRACE H NEGATIVE Urine Nitrite POSITIVE H NEGATIVE Urine Bilirubin 2+ H NEGATIVE Urine Urobilinogen 2.0 < = 1.0 MG/DL Urine Leukocyte Esterase 2+ H NEGATIVE Urine RBC (Auto) 3+ H NEGATIVE Urine RBC TNTC H /HPF Urine WBC 25-50 H /HPF Urine Squamous Epithelial Cells 2-5 /HPF Urine Crystals NONE /LPF Urine Bacteria MODERATE H /HPF Urine Casts NONE /LPF Urine Mucus NEGATIVE /LPF Urine Culture Indicated YES Urine Opiates Screen NEGATIVE NEGATIVE Urine Oxycodone Screen NEGATIVE NEGATIVE Urine Methadone Screen NEGATIVE NEGATIVE Urine Propoxyphene Screen NEGATIVE NEGATIVE Urine Barbiturates Screen NEGATIVE NEGATIVE Ur Tricyclic Antidepressants Screen NEGATIVE NEGATIVE Urine Phencyclidine Screen NEGATIVE NEGATIVE Urine Amphetamines Screen NEGATIVE NEGATIVE Urine Methamphetamines Screen NEGATIVE NEGATIVE Urine Benzodiazepines Screen NEGATIVE NEGATIVE Urine Cocaine Screen NEGATIVE NEGATIVE Urine Cannabinoids Screen NEGATIVE NEGATIVE My Orders Orders - PARTH NOBLE MD Ua Culture If Indicated (11/20/20 12:39) Cbc With Automated Diff (11/20/20 12:39) Comprehensive Metabolic Panel (11/20/20 12:39) Alcohol (11/20/20 12:39) Drug Screen Stat (Urine) (11/20/20 12:39) Acetaminophen (11/20/20 12:39) Salicylate (11/20/20 12:39) Ed Iv/Invasive Line Start (11/20/20 12:39) Monitor-Rhythm Ecg Trace Only (11/20/20 12:39) Ct Head Wo (11/20/20 12:39) Straight Cath For Spec.-Adult (11/20/20 12:39) Blood Culture (11/20/20 12:39) Lactic Acid Analyzer (11/20/20 12:39) Ns Iv 1000 Ml (Sodium Chloride 0.9%) (11/20/20 12:39) Ceftriaxone (Rocephin) (11/20/20 13:15) Ns Iv 1000 Ml (Sodium Chloride 0.9%) (11/20/20 13:15) Urine Culture (11/20/20 12:43) Vital Signs/I&O 11/20/20 11/20/20 11/20/20 11/20/20 12:26 14:35 15:30 15:32 Temp 36.7 36.7 36.3 Pulse 87 85 75 Resp 16 16 18 B/P (MAP) 111/63 (79) 109/57 (79) 96/65 (75) Pulse Ox 98 98 97 O2 Delivery Room Air Room Air Room Air Capillary Refill : Progress Note #1: Progress Note Check labs as well as blood cultures and urinalysis. Obtain a CT scan of her head to evaluate for possible metastatic disease or stroke. Give IV fluids for hydration. Differential diagnosis includes sepsis, stroke, metastatic disease to brain, dehydration, electrolyte imbalance Progress Note #2: Progress Note Labs showed a normal white blood cell count of 4.5. She has chronic anemia and hemoglobin is stable at 9.9. Her chemistry panel showed elevated lactic acid at 2.75. Her BUN and creatinine were elevated. Her urinalysis showed blood but also signs of infection. Based off of her previous urine cultures she did have E. coli most recently that was sensitive to Rocephin so we will treat for that. Continue with IV fluids for her elevated lactic acid and signs of sepsis. Hemodynamically she is stable. Will contact Dr. Levine for admission to the [facility] service since the patient follows with the [facility]. Diagnostic Imaging Diagonstic Imaging: CT Plain Films/CT/US/NM/MRI: head Comments NAME: PATRICIA BREWER [facility] REC#: [id number] PT STATUS: REG ER : 1955 PHYSICIAN: PARTH NOBLE MD ADMIT DATE: 11/20/20/ER FS Draft Date of Exam:11/20/20 CT HEAD WO PROCEDURE: CT head without contrast. TECHNIQUE: Multiple contiguous axial images were obtained through the brain without the use of intravenous contrast. Auto Exposure Controls were utilized during the CT exam to meet ALARA standards for radiation dose reduction. INDICATION: Hallucinations and history of bladder cancer. FINDINGS: There is prominence of the ventricles and sulci. There is no hydrocephalus or cerebral edema. There is no midline shift or mass-effect. There is no intracranial mass, hemorrhage, or extra-axial fluid collection. There is some diffuse decreased attenuation of the periventricular white matter which is nonspecific. The visualized paranasal sinuses and mastoid air cells are clear. There are no regional areas of decreased attenuation appreciated to suggest an acute CVA. IMPRESSION: 1. No acute intracranial process. 2. Age-appropriate atrophy. 3. Decreased attenuation of the periventricular white matter which is nonspecific, however, likely reflects senescent change and/or chronic small vessel ischemic disease. Dictated on workstation # [id number] Dict: 11/20/20 1257 Trans: 11/20/20 1258 CVB [id number] Interpreted by: SRAVANTHI PEREZ MD Electronically signed by: Reviewed: Reviewed by Me Departure Communication (Admissions) Time/Spoke to Admitting Phy: 13:57 d/w Dr. Levine for [facility] and will admit for sepsis, dehydration Impression Primary Impression: Sepsis Qualified Codes: A41.9 - Sepsis, unspecified organism Additional Impressions: Dehydration Cystitis with hematuria Hallucinations Disposition: 30 STILL A PATIENT Condition: Stable Admissions Decision to Admit Reason: Admit from ER (General) Decision to Admit/Date: Nov 20, 2020 Time/Decision to Admit Time: 13:57 Departure-Patient Inst. Referrals: EVELYNE ANTON APRN (PCP/Family) Primary Care Physician PARTH NOBLE MD Nov 20, 2020 12:41
[2020-11-20 12:48] LABS: HEMATOCRIT 33 % (35-52); HEMOGLOBIN 9.9 G/DL (11.5-16.0); MEAN CORPUSCULAR HEMOGLOBIN 28 PG (25-34); WHITE BLOOD COUNT 4.5 10^3/uL (4.3-11.0)
[2020-11-20 12:49] LABS: BASOPHILS % (AUTO) 0 % (0-10); EOSINOPHILS % (AUTO) 0 % (0-10); LYMPHOCYTES % (AUTO) 11 % (12-44); MEAN CORPUSCULAR HGB CONC 30 G/DL (32-36); MEAN CORPUSCULAR VOLUME 94 FL (80-99); MEAN PLATELET VOLUME 8.8 FL (7.4-10.4); MONOCYTES % (AUTO) 14 % (0-12); PLATELET COUNT 312 10^3/uL (130-400)
[2020-11-20 12:50] LABS: LYMPHOCYTES # (AUTO) 0.5 X 10^3 (1.0-4.0); MONOCYTES # (AUTO) 0.6 X 10^3 (0.0-1.0); NEUTROPHILS # (AUTO) 3.3 X 10^3 (1.8-7.8); NEUTROPHILS % (AUTO) 74 % (42-75)
--- NOTE | 2020-11-20 12:58 | Diagnostic Imaging Report ---
PROCEDURE: CT head without contrast. TECHNIQUE: Multiple contiguous axial images were obtained through the brain without the use of intravenous contrast. Auto Exposure Controls were utilized during the CT exam to meet ALARA standards for radiation dose reduction. INDICATION: Hallucinations and history of bladder cancer. FINDINGS: There is prominence of the ventricles and sulci. There is no hydrocephalus or cerebral edema. There is no midline shift or mass-effect. There is no intracranial mass, hemorrhage, or extra-axial fluid collection. There is some diffuse decreased attenuation of the periventricular white matter which is nonspecific. The visualized paranasal sinuses and mastoid air cells are clear. There are no regional areas of decreased attenuation appreciated to suggest an acute CVA. IMPRESSION: 1. No acute intracranial process. 2. Age-appropriate atrophy. 3. Decreased attenuation of the periventricular white matter which is nonspecific, however, likely reflects senescent change and/or chronic small vessel ischemic disease. Dictated by: Dictated on workstation # [id number]
[2020-11-20 13:08] LABS: ALKALINE PHOSPHATASE 208 U/L (40-136); BILIRUBIN,TOTAL 0.3 MG/DL (0.1-1.0); BUN/CREATININE RATIO 21; CALCIUM 8.5 MG/DL (8.5-10.1); CARBON DIOXIDE 19 MMOL/L (21-32); CHLORIDE 105 MMOL/L (98-107); GFR ESTIMATED 30; GLUCOSE 111 MG/DL (70-105); POTASSIUM 4.5 MMOL/L (3.6-5.0); SODIUM 136 MMOL/L (135-145)
[2020-11-20 13:09] LABS: ACETAMINOPHEN 17 UG/ML (10-30); ALANINE AMINOTRANSFERASE 12 U/L (0-55); ALBUMIN 2.4 GM/DL (3.2-4.5); SALICYLATE < 0.3 MG/DL (5.0-20.0); TOTAL PROTEIN 5.2 GM/DL (6.4-8.2)
[2020-11-20] MEDS ORDERED: cefTRIAXone 1,000 MG in WATER (STERILE) FOR INJECTION 10 ML IV STA (13:15)
[2020-11-20 13:21] LABS: CLARITY,URINE TURBID; COLOR,URINE RED; GLUCOSE, URINE (UA) NEGATIVE (NEGATIVE); PH,URINE 6.5 (5-9); PROTEIN,URINE 3+ (NEGATIVE)
[2020-11-20 13:22] LABS: BILIRUBIN,URINE 2+ (NEGATIVE); KETONES,URINE TRACE (NEGATIVE); LEUKOCYTE ESTERASE ,URINE 2+ (NEGATIVE); NITRITE,URINE POSITIVE (NEGATIVE)
[2020-11-20 13:23] LABS: BACTERIA,URINE MODERATE /HPF; RBC,URINE TNTC /HPF; WBC,URINE 25-50 /HPF
[2020-11-20 13:24] LABS: AMPHETAMINE SCREEN, URINE NEGATIVE (NEGATIVE); BARBITURATE SCREEN URINE NEGATIVE (NEGATIVE); BENZODIAZEPINES SCREEN URINE NEGATIVE (NEGATIVE); CANNABINOID SCREEN, URINE NEGATIVE (NEGATIVE); COCAINE SCREEN URINE NEGATIVE (NEGATIVE); METHADONE STAT NEGATIVE (NEGATIVE); METHAMPHETAMINE SCREEN URINE S NEGATIVE (NEGATIVE); OPIATE SCREEN URINE NEGATIVE (NEGATIVE); OXYCODONE STAT NEGATIVE (NEGATIVE); PROPOXYPHENE STAT NEGATIVE (NEGATIVE); TRICYCLIC ANTIDEPRESSANTS SCRE NEGATIVE (NEGATIVE)
[2020-11-20 15:32] VITALS: BP 96/65
[2020-11-20] MEDS ORDERED: CATHETER FLUSH 10 ML SYR IV PRN (17:15)
[2020-11-20] MEDS: NS IV 1000 ML 1,000 ML IV SCH ×2 (17:26→23:40)
[2020-11-20 19:58] VITALS: BP 94/42
[2020-11-20] MEDS: ACETAMINOPHEN 500 MG TAB (TYLENOL) PO PRN (21:14)
[2020-11-20] MEDS ORDERED: HALOPERIDOL 5 MG/ML (HALDOL) VIAL ONE (22:33)
[2020-11-20] MEDS: HALOPERIDOL 5 MG/ML (HALDOL) VIAL IM/IV PRN (22:38)
[2020-11-20 23:40] VITALS: BP 94/58
[2020-11-21] MEDS: LORazepam INJ 2 MG/ML (ATIVAN) VIAL IVP PRN ×5 (00:33→20:45)
[2020-11-21 04:00] VITALS: BP 113/70
[2020-11-21] MEDS: NS IV 1000 ML 1,000 ML IV SCH ×3 (05:53→20:45)
[2020-11-21 06:34] LABS: BASOPHILS % (AUTO) 1 % (0-10); EOSINOPHILS # (AUTO) 0.1 10^3/uL (0.0-0.3); EOSINOPHILS % (AUTO) 2 % (0-10); HEMATOCRIT 29 % (35-52); HEMOGLOBIN 8.3 g/dL (11.5-16.0); LYMPHOCYTES # (AUTO) 0.5 10^3/uL (1.0-4.0); LYMPHOCYTES % (AUTO) 17 % (12-44); MEAN CORPUSCULAR HEMOGLOBIN 28 pg (25-34); MEAN CORPUSCULAR HGB CONC 29 g/dL (32-36); MEAN CORPUSCULAR VOLUME 99 fL (80-99); MEAN PLATELET VOLUME 8.8 fL (9.0-12.2); MONOCYTES # (AUTO) 0.6 10^3/uL (0.0-1.0); MONOCYTES % (AUTO) 20 % (0-12); NEUTROPHILS # (AUTO) 1.7 10^3/uL (1.8-7.8); NEUTROPHILS % (AUTO) 60 % (42-75); PLATELET COUNT 198 10^3/uL (130-400); WHITE BLOOD COUNT 2.8 10^3/uL (4.3-11.0)
[2020-11-21 06:44] LABS: ALBUMIN 1.9 GM/DL (3.2-4.5)
[2020-11-21 06:46] LABS: CALCIUM 7.5 MG/DL (8.5-10.1)
[2020-11-21 06:47] LABS: TOTAL PROTEIN 4.1 GM/DL (6.4-8.2)
[2020-11-21 06:48] LABS: BILIRUBIN,TOTAL 0.3 MG/DL (0.1-1.0)
[2020-11-21 06:50] LABS: CREATININE SERUM 1.21 MG/DL (0.60-1.30)
[2020-11-21 08:00] VITALS: BP 123/79
[2020-11-21] MEDS: HALOPERIDOL 5 MG/ML (HALDOL) VIAL IM/IV PRN (08:43)
--- NOTE | 2020-11-21 10:47 | History & Physical-Hospitalist ---
History of Present Illness HPI/Chief Complaint Initial Comments 65-year-old female presenting by EMS from [facility] due to auditory and visual hallucinations since this morning. She has a history of bladder cancer and gets frequent UTIs. She has only been living back at home and outside of [facility] for the last 2 weeks. She had called her daughter stating that she was seeing people and hearing voices. Her daughter reports calling [facility] and being told to bring her into the emergency department for evaluation. EMS states that initially her blood pressure was 90 systolic and quickly came up with some IV fluids. She was afebrile on arrival to the ED. She was aware of seeing people that were not there and voices that were not real. She denies having happened to her before. She denies any head injury or fall. She has chronic blood in her urine due to the bladder cancer and states that is not any different than usual. She is incontinent of urine and that is chronic. She has been having more subjective fever chills in the last 24 hours. She does not eat or drink very well at home. Associated Systoms: No Chest Pain, No Cough, No Diaphoresis; Fever/Chills (Subjective); No Headaches, No Loss of Appetite; Malaise; No Nausea/Vomiting, No Rash, No Seizure, No Shortness of Air, No Syncope; Weakness (Generalized Upon my arrival in the morning patient was confused not making any sense with various forms of paranoidal ideation agitated and was alert but a little bit calmer after she had received a milligram of IV Ativan. She was unable to give any history secondary to underlying confusion. Date Seen 11/21/20 Time Seen by a Provider: 09:00 Attending Physician Kendrick Kirk MD PCP Leah Gallo Aprn Referring Physician Date of Admission Nov 20, 2020 at 15:33 Home Medications & Allergies Home Medications Reviewed patient Home Medication Reconciliation performed by pharmacy medication reconciliations service desk technician and/or nursing. Patients Allergies have been reviewed. Allergies Allergies Coded Allergies No Known Drug Allergies (Unverified06/16/17) Past Qmtglcs-Bqkvse-Drywnp Hx Patient Social History Tobacco Use?: Yes Tobacco type used: Cigarettes Smoking Status: Former Smoker Use of E-Cig and/or Vaping dev: No Substance use?: No Alcohol Use?: No Pt feels they are or have been: No Immunizations Up To Date Date of Influenza Vaccine: Feb 18, 2019 Tetanus Booster (TDap): Unknown Hepatitis A: No Hepatitis B: No PED Vaccines UTD: No Date of Pneumonia Vaccine: Feb 18, 2019 Seasonal Allergies Seasonal Allergies: Yes (LEAVES AND TREES) Current Status Advance Directives: No Communicates: Verbally Primary Language: South Korean Preferred Spoken Language: [place] Korean Is interpretation needed?: No Sensory deficits: Vision impairment, Hearing impairment Implanted or Applied Medical D: Orthopedic hardware Past Medical History Surgeries: Coronary Stent, Gallbladder, Joint Replacement, Tubal Ligation Currently Using CPAP: No Currently Using BIPAP: No Coronary Artery Disease, Heart Attack, High Cholesterol, Hypertension Sexually Transmitted Disease: No HIV/AIDS: No Bladder Infection, UTI-Chronic Gastroesophageal Reflux, Chronic Diarrhea Arthritis, Fractures Loss of Vision: Denies Hearing Impairment: Denies, Bilateral Hearing Aide Bladder Anxiety, Depression Blood Disorders: No Adverse Reaction/Blood Tranf: No (HAS HAD BLOOD WITH NO REACTION) PMHx: CAD s/p stenting HTN Anxiety PSurgHx: Right hip replacement Small bowel resection x 2 with bowel ischemia Family Medical History Diabetes mellitus 19 MOTHER G8 BROTHER G8 SISTER Diabetes, Hypertension Review of Systems Constitutional: see HPI Physical Exam Physical Exam Vital Signs Vital Signs - First Documented 11/20/20 12:26 Temp 36.7 Pulse 87 Resp 16 B/P (MAP) 111/63 (79) Pulse Ox 98 O2 Delivery Room Air Capillary Refill : Less Than 3 Seconds Height, Weight, BMI Height: 5'4.00" Weight: 239lbs. 9.0oz. 108.274753ig; 24.19 BMI Method:Stated General Appearance: Chronically ill, Mild Distress (Due to confusion no complaints of pain) HEENT: Pale Conjunctivae (L), Pale Conjunctivae (R) Respiratory: Chest Non Tender, Lungs Clear, Normal Breath Sounds, No Accessory Muscle Use, No Respiratory Distress Cardiovascular: Regular Rate, Rhythm, No Edema, No Gallop, No JVD, No Murmur, Normal Peripheral Pulses Gastrointestinal: Normal Bowel Sounds, No Organomegaly, No Pulsatile Mass, Non Tender, Soft Extremity: Normal Inspection, Normal Range of Motion, Non Tender, No Calf Tenderness, No Pedal Edema Neurologic/Psychiatric: Other (Confused moving all extremities no focal neurologic findings noted.) Results Results/Procedures Labs Laboratory Tests 11/20/20 12:29 11/21/20 05:50 Patient resulted labs reviewed. Assessment/Plan Admission Diagnosis Probable delirium in an individual with underlying dementia presumed Alzheimer's this may be caused by underlying urinary tract infection with sepsis. Currently sepsis resolved with IV fluids the initiation of empiric antibiotics cultures pending. Patient has been a threat to harm herself trying to crawl out of bed such that benefits of sedating medication outweigh potential risks continue as needed use of Ativan and IM Haldol for now. 2. Unspecified anemia normocytic with mild neutropenia due to agitation and the fact that these labs are send out will draw essentially and anemia analyzer pa michael when the patient is less combative try to keep stimulus to a minimum for now. 3. Reported history of bladder cancer and frequent urinary tract infection. Admission Status: Inpatient Order (span 2 midnights) Reason for Inpatient Admission: See admission diagnosis KENDRICK KIRK MD Nov 21, 2020 10:47
[2020-11-21 12:00] VITALS: BP 100/64
[2020-11-21] MEDS: cefTRIAXone 1,000 MG/SWFI 10 ML IV PUSH IV SCH ×2 (12:12)
[2020-11-21 15:51] VITALS: BP 101/57
[2020-11-21 21:00] VITALS: BP 104/64
[2020-11-21 23:48] VITALS: BP 94/73
[2020-11-22] MEDS: NS IV 1000 ML 1,000 ML IV SCH ×2 (02:15→09:39)
[2020-11-22 04:12] VITALS: BP 98/63
[2020-11-22] MEDS: LORazepam INJ 2 MG/ML (ATIVAN) VIAL IVP PRN ×2 (05:25→23:58)
[2020-11-22 07:59] VITALS: BP 88/58
[2020-11-22 09:36] LABS: BASOPHILS % (AUTO) 0 % (0-10); EOSINOPHILS % (AUTO) 1 % (0-10); HEMATOCRIT 30 % (35-52); HEMOGLOBIN 8.7 g/dL (11.5-16.0); LYMPHOCYTES # (AUTO) 0.4 10^3/uL (1.0-4.0); LYMPHOCYTES % (AUTO) 14 % (12-44); MEAN CORPUSCULAR HEMOGLOBIN 29 pg (25-34); MEAN CORPUSCULAR HGB CONC 29 g/dL (32-36); MEAN CORPUSCULAR VOLUME 101 fL (80-99); MEAN PLATELET VOLUME 9.3 fL (9.0-12.2); MONOCYTES # (AUTO) 0.6 10^3/uL (0.0-1.0); MONOCYTES % (AUTO) 21 % (0-12); NEUTROPHILS # (AUTO) 1.9 10^3/uL (1.8-7.8); NEUTROPHILS % (AUTO) 64 % (42-75); PLATELET COUNT 207 10^3/uL (130-400); WHITE BLOOD COUNT 2.9 10^3/uL (4.3-11.0)
[2020-11-22 09:44] LABS: ALBUMIN 1.9 GM/DL (3.2-4.5); CHLORIDE 121 MMOL/L (98-107); POTASSIUM 3.6 MMOL/L (3.6-5.0); SODIUM 145 MMOL/L (135-145)
[2020-11-22 09:46] LABS: CALCIUM 7.4 MG/DL (8.5-10.1)
[2020-11-22 09:47] LABS: GLUCOSE 79 MG/DL (70-105)
[2020-11-22 09:48] LABS: CARBON DIOXIDE 14 MMOL/L (21-32)
[2020-11-22 09:49] LABS: BILIRUBIN,TOTAL 0.3 MG/DL (0.1-1.0)
[2020-11-22 09:50] LABS: ALKALINE PHOSPHATASE 151 U/L (40-136); CREATININE SERUM 0.84 MG/DL (0.60-1.30); GFR ESTIMATED > 60
[2020-11-22 09:51] LABS: BUN/CREATININE RATIO 20
[2020-11-22 09:53] LABS: ALANINE AMINOTRANSFERASE 17 U/L (0-55)
[2020-11-22 10:10] LABS: NEUTROPHILS % (MANUAL) 71 %
[2020-11-22 10:11] LABS: ANISOCYTOSIS SLIGHT; BAND NEUTROPHILS 0 %; BASOPHILS % (MANUAL) 1 %; EOSINOPHILS % (MANUAL) 5 %; LYMPHOCYTES % (MANUAL) 13 %; MONOCYTES % (MANUAL) 10 %
[2020-11-22] MEDS: 1/2 NS W/KCL 20 MEQ/L 1,000 ML IV SCH ×3 (10:21→19:27)
[2020-11-22 10:35] LABS: CLARITY,URINE TURBID; COLOR,URINE RED; GLUCOSE, URINE (UA) TRACE (NEGATIVE); KETONES,URINE 2+ (NEGATIVE); LEUKOCYTE ESTERASE ,URINE 3+ (NEGATIVE); NITRITE,URINE POSITIVE (NEGATIVE); PH,URINE 6.5 (5-9); PROTEIN,URINE 3+ (NEGATIVE)
[2020-11-22 11:01] LABS: BACTERIA,URINE MODERATE /HPF; BILIRUBIN,URINE 3+ (NEGATIVE); RBC,URINE TNTC /HPF; WBC,URINE >100 /HPF
[2020-11-22 12:04] VITALS: BP 107/75
--- NOTE | 2020-11-22 12:44 | Progress Note - Hospitalist ---
Subjective HPI/CC On Admission Date Seen by Provider: Nov 22, 2020 Time Seen by Provider: 09:45 Initial Comments 65-year-old female presenting by EMS from [facility] due to auditory and visual hallucinations since this morning. She has a history of bladder cancer and gets frequent UTIs. She has only been living back at home and outside of [facility] for the last 2 weeks. She had called her daughter stating that she was seeing people and hearing voices. Her daughter reports calling [facility] and being told to bring her into the emergency department for evaluation. EMS states that initially her blood pressure was 90 systolic and quickly came up with some IV fluids. She was afebrile on arrival to the ED. She was aware of seeing people that were not there and voices that were not real. She denies having happened to her before. She denies any head injury or fall. She has chronic blood in her urine due to the bladder cancer and states that is not any different than usual. She is incontinent of urine and that is chronic. She has been having more subjective fever chills in the last 24 hours. She does not eat or drink very well at home. Associated Systoms: No Chest Pain, No Cough, No Diaphoresis; Fever/Chills (Subjective); No Headaches, No Loss of Appetite; Malaise; No Nausea/Vomiting, No Rash, No Seizure, No Shortness of Air, No Syncope; Weakness (Generalized Upon my arrival in the morning patient was confused not making any sense with various forms of paranoidal ideation agitated and was alert but a little bit calmer after she had received a milligram of IV Ativan. She was unable to give any history secondary to underlying confusion. Subjective/Events-last exam Patient sleeping soundly did not arouse to verbal or gentle physical stimulation. Nursing staff reported that she was quite agitated and received another dose of Ativan at 530 this morning unlike previous doses that did not lead to any sedation she has been sleeping since. She only received 1 dose of Haldol yesterday that did not have any impact on decreasing agitation or causing any sedation. There has been no evidence for gross hematuria. Focused Exam Lactate Level 11/20/20 12:29: Lactic Acid Level 2.75*H 11/20/20 15:50: Objective Exam Vital Signs Vital Signs Date Time Temp Pulse Resp B/P (MAP) Pulse Ox O2 Delivery O2 Flow Rate FiO2 11/22/20 12:04 36.4 136 18 107/75 (86) 97 Room Air Capillary Refill : Less Than 3 Seconds General Appearance: No Apparent Distress, Chronically ill Respiratory: Chest Non Tender, Lungs Clear, Normal Breath Sounds, No Accessory Muscle Use, No Respiratory Distress Cardiovascular: No Edema, No Gallop, No JVD, Systolic Murmur, Irregularly Irregular, Tachycardia (Rate 100-110) Gastrointestinal: Normal Bowel Sounds, No Organomegaly, No Pulsatile Mass, Non Tender (1/6 to 2/6 systolic ejection murmur heard best left lower sternal border no evidence for pulses parvus or tardus. No reaction to palpation), Soft Extremity: No Pedal Edema Results/Procedures Lab Laboratory Tests 11/22/20 09:26 Patient resulted labs reviewed. Assessment/Plan Assessment and Plan Assess & Plan/Chief Complaint 1. Agitated delirium questionably due to urinary tract infection. Had a long discussion with the daughter who states that her mother has given up has had very poor p.o. intake and labs are certainly compatible with significant malnutrition. She has been per her wishes DO NOT RESUSCITATE status. She has a very bulky inoperable bladder tumor and received 2 rounds of biologic chemotherapy for which I would expect due to her significant malnutrition and loss of will to live highly unlikely to be of benefit. Discussed the extreme poor prognosis with the daughter and will be resuming DNR status. Repeat lactic acid still registers is being pending we will repeat lactic acid today and repeat urine analysis continuing Rocephin for now. She is at risk for obstruction due to her bladder tumor and is incontinent of urine will place Davis to dependent drainage but did discuss that while this is for her comfort a nd now she becomes agitated and is a threat to remove it we will do so. The daughter later called back and stated that she wanted her mother transferred to her oncologist at . Discussed that was on diversion last night and that currently her mother is too unstable for transfer but could reevaluate in the morning. 2. Unspecified anemia normocytic with mild neutropenia Likely due to malnutri tion less likely but cannot rule out the possibility of chemotherapy. Chronic disease from bladder tumor and chronic blood loss are also possible will obtain anemia analyzer in the morning.. 3. Reported history of bladder cancer and frequent urinary tract infection 4. ECG done for irregular rhythm is questionable for atrial fibrillation currently she is not a candidate for anticoagulant therapy her heart rate is only in the 100-1 10 range and blood pressures have been low we will give fluid bolus. Currently the risk of rate control medication i.e. beta-josie or calcium channel josie therapy are outweighed by potential benefit. Discussed my expectations that especially in light of this patient's per her daughter's report loss of the will to live stands high likelihood of not surviving this hospital stay. LILIYA KIRK MD Nov 22, 2020 12:44
[2020-11-22] MEDS: cefTRIAXone 1,000 MG/SWFI 10 ML IV PUSH IV SCH ×2 (13:34)
[2020-11-22 15:23] VITALS: BP 142/70
[2020-11-22 20:14] VITALS: BP 129/83
[2020-11-23 00:01] VITALS: BP 120/70
[2020-11-23] MEDS: 1/2 NS W/KCL 20 MEQ/L 1,000 ML IV SCH ×2 (02:08→08:50)
[2020-11-23 03:39] VITALS: BP 103/62
[2020-11-23] MEDS: ACETAMINOPHEN 500 MG TAB (TYLENOL) PO PRN ×2 (03:55→14:17)
[2020-11-23] MEDS ORDERED: meTOproloL SUCCINATE 50 MG (TOPROL XL) TAB PO ONE (04:45)
[2020-11-23 06:09] LABS: BASOPHILS % (AUTO) 1 % (0-10); EOSINOPHILS # (AUTO) 0.1 10^3/uL (0.0-0.3); EOSINOPHILS % (AUTO) 3 % (0-10); HEMATOCRIT 30 % (35-52); HEMOGLOBIN 8.7 g/dL (11.5-16.0); LYMPHOCYTES # (AUTO) 0.5 10^3/uL (1.0-4.0); LYMPHOCYTES % (AUTO) 15 % (12-44); MEAN CORPUSCULAR HEMOGLOBIN 28 pg (25-34); MEAN CORPUSCULAR HGB CONC 29 g/dL (32-36); MEAN CORPUSCULAR VOLUME 98 fL (80-99); MEAN PLATELET VOLUME 8.9 fL (9.0-12.2); MONOCYTES # (AUTO) 0.8 10^3/uL (0.0-1.0); MONOCYTES % (AUTO) 22 % (0-12); NEUTROPHILS # (AUTO) 2.1 10^3/uL (1.8-7.8); NEUTROPHILS % (AUTO) 59 % (42-75); PLATELET COUNT 192 10^3/uL (130-400); WHITE BLOOD COUNT 3.5 10^3/uL (4.3-11.0)
[2020-11-23 06:21] LABS: ALBUMIN 1.8 GM/DL (3.2-4.5)
[2020-11-23 06:22] LABS: CHLORIDE 117 MMOL/L (98-107); POTASSIUM 4.1 MMOL/L (3.6-5.0); SODIUM 139 MMOL/L (135-145)
[2020-11-23 06:23] LABS: CALCIUM 7.5 MG/DL (8.5-10.1)
[2020-11-23 06:24] LABS: GLUCOSE 82 MG/DL (70-105)
[2020-11-23 06:25] LABS: CARBON DIOXIDE 14 MMOL/L (21-32)
[2020-11-23 06:26] LABS: BILIRUBIN,TOTAL 0.4 MG/DL (0.1-1.0)
[2020-11-23 06:27] LABS: ALKALINE PHOSPHATASE 165 U/L (40-136)
[2020-11-23 06:28] LABS: CREATININE SERUM 0.73 MG/DL (0.60-1.30); GFR ESTIMATED > 60
[2020-11-23 06:29] LABS: BUN/CREATININE RATIO 16
[2020-11-23 06:30] LABS: ALANINE AMINOTRANSFERASE 18 U/L (0-55)
[2020-11-23 06:52] LABS: EOSINOPHILS % (MANUAL) 2 %; LYMPHOCYTES % (MANUAL) 12 %; MONOCYTES % (MANUAL) 14 %; NEUTROPHILS % (MANUAL) 72 %; POLYCHROMASIA SLIGHT
[2020-11-23 06:53] LABS: ANISOCYTOSIS SLIGHT; HYPOCHROMASIA SLIGHT
[2020-11-23 07:40] VITALS: BP 116/72
[2020-11-23 12:02] VITALS: BP 118/76
[2020-11-23] MEDS ORDERED: CEFD300C3 PO (12:33)
--- NOTE | 2020-11-23 12:42 | Discharge Summary ---
Discharge Summary Reconcile Patient Problems Problems Reviewed?: Yes Instructions for Patient Via [facility], Assessment/Instructions Take medications as prescribed. Complete your course of antibiotics even if you are feeling better. Follow-up with your primary care physician. Follow-up with your oncologist. You are being discharged with a Davis catheter. You are being set up with home health care. Return with worsening confusion or if you feel like you are getting worse. Physician to follow Patient: Jessica DAIGLE Discharge Diet for Home: No Restrictions Hospital Course Date of Admission: Nov 20, 2020 at 15:33 Admission Diagnosis : Acute encephalopathy Family Physician/Provider: Leah Gallo Aprn Date of Discharge: 11/23/20 Discharge Diagnosis: Bladder cancer with urinary retention Hospital Course: Viviane Middleton is a 65-year-old female with stage III bladder cancer currently on i mmunotherapy who presented with altered mental status. There was concern for urinary tract infection and she was started on IV antibiotics. She had a Davis catheter placed. Her delirium subsequently improved. This was thought to be due to urinary retention. Her urine culture showed no growth. She will complete a course of Omnicef as an outpatient. She was discharged home with a Davis catheter. She was set up with home health care to assist with Davis cares and ongoing therapy. She will follow-up with her primary care physician and oncologist. She was discharged home in stable condition. Labs and Pending Lab Test: Laboratory Tests 11/22/20 12:40: Lactic Acid Level 1.13 11/23/20 05:48: White Blood Count 3.5L, Red Blood Count 3.08L, Hemoglobin 8.7L, Hematocrit 30L, Mean Corpuscular Volume 98, Mean Corpuscular Hemoglobin 28, Mean Corpuscular Hemoglobin Concent 29L, Red Cell Distribution Width 21.7H, Platelet Count 192, Mean Platelet Volume 8.9L, Immature Granulocyte % (Auto) 1, Neutrophils (%) (Auto) 59, Lymphocytes (%) (Auto) 15, Monocytes (%) (Auto) 22H, Eosinophils (%) (Auto) 3, Basophils (%) (Auto) 1, Neutrophils # (Auto) 2.1, Lymphocytes # (Auto) 0.5L, Monocytes # (Auto) 0.8, Eosinophils # (Auto) 0.1, Basophils # (Auto) 0.0, Immature Granulocyte # (Auto) 0.0, Neutrophils % (Manual) 72, Lymphocytes % (Manual) 12, Monocytes % (Manual) 14, Eosinophils % (Manual) 2, Polychromasia SLIGHT, Hypochromasia SLIGHT, Anisocytosis SLIGHT, Sodium Level 139, Potassium Level 4.1, Chloride Level 117H, Carbon Dioxide Level 14L, Anion Gap 8, Blood Urea Nitrogen 12, Creatinine 0.73, Estimat Glomerular Filtration Rate > 60, BUN/Creatinine Ratio 16, Glucose Level 82, Calcium Level 7.5L, Corrected Calcium 9.3, Total Bilirubin 0.4, Aspartate Amino Transf (AST/SGOT) 30, Alanine Aminotransferase (ALT/SGPT) 18, Alkaline Phosphatase 165H, Total Protein 4.0L, Albumin 1.8L Microbiology 11/20/20 Blood Culture - Preliminary, Resulted No growth 11/20/20 Urine Culture - Final, Complete NO GROWTH Home Meds Active Cefdinir 300 Mg Capsule 300 Mg PO BID 10 Days Cefuroxime (Cefuroxime Axetil) 250 Mg Tablet 250 Mg PO BID 10 Days Reported Solifenacin Succinate 5 Mg Tablet 5 Mg PO [Neudexia 20-10] Myrbetriq (Mirabegron) 50 Mg Tab.er.24h 50 Mg PO Buspirone HCl 10 Mg Tablet 10 Mg PO Risperidone 1 Mg Tab.rapdis 1 Mg PO Trimethoprim 100 Mg Tablet 100 Mg PO Folic Acid 1 Mg Tablet 1 Mg PO DAILY Ferrous Sulfate 325 Mg Tablet 325 Mg PO BID Exelon (Rivastigmine) 4.6 Mg Patch 4.6 Mg TD DAILY Duloxetine HCl 60 Mg Capsule.dr 60 Mg PO BID One Daily For Women 50+ Adv Tb (Multivitamins-Min/FA/Ginkgo) 1 Each Tablet 1 Tab PO DAILY Cetirizine HCl 10 Mg Tablet 10 Mg PO DAILY Metoprolol Tartrate 50 Mg Tablet 50 Mg PO BID Proair Hfa (Albuterol Sulfate) 1 Puff Puff 2 Puff INH Q4H PRN Pantoprazole Sodium 40 Mg Tablet.dr 40 Mg PO DAILY Patient Allergies: Coded Allergies: No Known Drug Allergies (Unverified , 06/16/17) Height (Feet): 5 Height (Inches): 4.00 Weight (Pounds): 239 Weight (Ounces): 9.0 Home Health Need/Face to Face Date of Face to Face: Nov 23, 2020 Clinical Findings: Generalized weakness and fatigue, Muscle weakness, Unsteady gait I have seen Pt [id number]: Yes Discharged To: Home Diagnosis/Conditions: Bladder cancer Urinary retention Urinary tract infection Debility Problems/Diagnosis/Condition: (1) Debility (2) UTI (urinary tract infection) (3) Urinary retention (4) Bladder cancer Patient is Homebound due to: Elaine fall risk due to instabilty, Muscle weakness Homebound Status Due to the above stated illness, injury or surgical procedure (medical condi tion or diagnosis) and associated clinical findings, the patient is homebound because of his/her inability to leave home except with aid of a supportive device and/or person AND leaving the home requires a considerable and taxing effort or is medically contraindicated. Pt req the following assistanc: Aid of another person Home Health Nursing Orders Home Health Services Order: Nursing Services, Engineer And Geologist-Evaluate & Treat, Physical Therapy-Evaluate & Treat Home Health Infusion Therapy Line Start Date: Nov 20, 2020 Therapy Orders Therapy Orders: OT (must have SN or PT order), Physical Therapy Therapy Specific Orders: Eval assistive deivces, Teach enviro modifications/safety, Gait training, Increase strength/endurance Certify Stmt I certify that this patient is under my care and that I, a nurse practitioner or a physician; a loan assistant working with me, had a face to face encounter that - meets the physician face to face encounter requirements with this patient as dated. Discharge Physical Exam General: Alert, Oriented X3, Cooperative, No Acute Distress HEENT: Atraumatic, EOMI, Mucous Memb Moist/Langdon Lungs: Clear to Auscultation, Normal Air Movement Heart: Regular Rate, Normal S1, Normal S2, No Murmurs Abdomen: Normal Bowel Sounds, Soft, No Tenderness Extremities: Other (Bilateral lower extremity edema) Skin: No Rashes, No Significant Lesion Neuro: Normal Speech, Other (Motor weakness) Psych/Mental Status: Mental Status NL, Mood NL PAUL LANCASTER MD Nov 23, 2020 12:41
[2020-11-23] MEDS: cefTRIAXone 1,000 MG/SWFI 10 ML IV PUSH IV SCH ×2 (13:29)
[2020-11-23 16:00] VITALS: BP_SYST 121; BP_SYST 153; BP_DIAS 80; BP_DIAS 88
[2020-11-23 16:30] VITALS: BP 121/80
[2020-11-23] MEDS ORDERED: meTOproloL SUCCINATE 50 MG (TOPROL XL) TAB PO SCH (21:00)
--- NOTE | 2020-11-25 15:03 | Physician Query Clarification ---
PQ-Further Specificity Admission/Discharge Admission Date: Nov 20, 2020 at 15:33 Discharge Date: Nov 23, 2020 at 16:30 Dr. Kirk, The medical record reflects the following clinical scenario: History/Risk Factors: Sepsis, cystitis, malnutrition, bladder CA, urinary incontinence Clinical Findings: Very poor po intake, Albumin 2.4 > 1.8, significant malnutrition per Dr. Kirk PN Treatment: IVF, IV Ceftriaxone Question: Can you further specify significant malnutrition per the clinical indicators above? Please document a response in the Progress Notes or Discharge Summary. 1. Severe protein-calorie malnutrition 2. Moderate protein-calorie malnutrition 3. Other, with explanation of the clinical findings. 4. Clinically undetermined, no explanation for the clinical findings. PHYSICIAN RESPONSE Can you specify per above: 1 Please remember a lack of response to the above will prompt a phone page by CDI/Coding staff. In responding to this query, please exercise your independent professional judgment. The purpose of this communication is to more accurately reflect the complexity of your patients condition. The fact that a question is asked does not imply that any particular answer is desired or expected. Thank you for your timely response to this clarification. Requestors name: Krysta THIS PHYSICIAN QUERY FORM IS A PERMANENT PART OF THE MEDICAL RECORD KRYSTA ANDRE Nov 25, 2020 15:03 LILIYA KIRK MD Nov 25, 2020 18:03
--- NOTE | 2020-11-25 15:24 | Physician Query Clarification ---
PQ-Uncertain Diagnosis Admission/Discharge Admission Date: Nov 20, 2020 at 15:33 Discharge Date: Nov 23, 2020 at 16:30 Dr. Lancaster, The medical record reflects the following clinical scenario: History/Risk Factors: Cystitis, Bladder CA, urinary incontinence, auditory/visual hallucinations Clinical Findings: T 36.0, P 87, R 18, BP 96/65, WBC 4.5>2.8 on 11/21, Lactic acid 2.75, Urine culture - urine esterase 2+, Bacteria moderate, Urine RBC TNTC, Urine WBC 25 - 50 Treatment: IV Ceftriaxone Question: Is Sepsis w/ cystitis a clinically valid diagnosis? Sepsis w/cystitis was documented in the ER and Dr. Levine's H&P, PN's with no further documentation in the medical record. DS states that urine culture negative and these diagnoses not listed on the DS. Please confirm whether or not patient has thes diagnoses. Please document a response in Progress Note or Discharge Summary. 1. Yes, Sepsis w/ cystitis is clinically valid, condition resolved. 2. No, sepsis w/ cystitis condition ruled out. 3. Other, with explanation of clinical findings. 4. Undetermined, no explanation for clinical findings. PHYSICIAN RESPONSE Diagnosis clinically valid: No, conditon ruled out Please remember a lack of response to the above will prompt a phone page by CDI/Coding staff. In responding to this query, please exercise your independent professional j udgment. The purpose of this communication is to more accurately reflect the complexity of your patients condition. The fact that a question is asked does not imply that any particular answer is desired or expected. Thank you for your timely response to this clarification. Requestors name: Krysta THIS PHYSICIAN QUERY FORM IS A PERMANENT PART OF THE MEDICAL RECORD KRYSTA ANDRE Nov 25, 2020 15:24 PAUL LANCASTER MD Dec 08, 2020 10:29
--- NOTE | 2020-12-09 07:47 | Physician Query Clarification ---
PQ-Further Specificity Admission/Discharge Admission Date: Nov 20, 2020 at 15:33 Discharge Date: Nov 23, 2020 at 16:30 The medical record reflects the following clinical scenario: History/Risk Factors: Cystitis, Bladder CA, urinary incontinence, auditory/visual hallucinations Clinical Findings: T 36.0, P 87, R 18, BP 96/65, WBC 4.5>2.8 on 11/21, Lactic acid 2.75, Urine culture - urine esterase 2+, Bacteria moderate, Urine RBC TNTC, Urine WBC 25 - 50 Treatment: IV Ceftriaxone Question: Can you further specify acute encephalopathy per the clinical indicat ors above? Please document a response in the Progress Notes or Discharge Summary. 1. metabolic encephalopathy 2. toxic encephalopathy 3. acute encephalopathy not further specified 4. Other, with explanation of the clinical findings. 5. Clinically undetermined, no explanation for the clinical findings. PHYSICIAN RESPONSE Can you specify per above: Other, explanation/clinical finding Explanation/Clinical Findings Delirium due to urinary retention Please remember a lack of response to the above will prompt a phone page by CDI/Coding staff. In responding to this query, please exercise your independent professional judgment. The purpose of this communication is to more accurately reflect the complexity of your patients condition. The fact that a question is asked does not imply that any particular answer is desired or expected. Thank you for your timely response to this clarification. Requestors name: Krysta THIS PHYSICIAN QUERY FORM IS A PERMANENT PART OF THE MEDICAL RECORD KRYSTA ANDRE Dec 09, 2020 07:47 PAUL LANCASTER MD Dec 16, 2020 21:37
== END 2020-11-23 16:30 | disposition home health service (06) | DRG 686 ==
LOC: EDUNIT# 12:26 → ER FS 12:27 → 4TH 15:33
PROVIDERS: ADMIT Internal Medicine; ATTEND Internal Medicine
DX: C67.9 Malignant neoplasm of bladder, unspecified (principal); E43 Unspecified severe protein-calorie malnutrition; E46 Unspecified protein-calorie malnutrition; Z68.41 Body mass index [BMI] 40.0-44.9, adult; R44.0 Auditory hallucinations; F05 Delirium due to known physiological condition; R33.8 Other retention of urine; Z66 Do not resuscitate; D50.0 Iron deficiency anemia secondary to blood loss (chronic); R32 Unspecified urinary incontinence; R44.1 Visual hallucinations; E78.00 Pure hypercholesterolemia, unspecified; I10 Essential (primary) hypertension; K21.9 Gastro-esophageal reflux disease without esophagitis; F41.9 Anxiety disorder, unspecified; F32.9 Major depressive disorder, single episode, unspecified; I25.10 Atherosclerotic heart disease of native coronary artery without angina pectoris; Z87.891 Personal history of nicotine dependence; Z95.5 Presence of coronary angioplasty implant and graft; I25.2 Old myocardial infarction; H91.93 Unspecified hearing loss, bilateral; H54.7 Unspecified visual loss; Z97.4 Presence of external hearing-aid; Z96.643 Presence of artificial hip joint, bilateral; Z82.49 Family history of ischemic heart disease and other diseases of the circulatory system
CPT/HCPCS: 36415; 51701; 70450; 80053; 80306; 80320; 80329; 81000; 83605; 85007; 85025; 85027; 87040; 87088; 93005; 96374

== ENCOUNTER 2020-11-27 22:47 | Emergency (ER) | payer MEDICARE, MEDICAID ==
[2020-11-27] MEDS ORDERED: PANTOPRAZOLE 40 MG (PROTONIX) VIAL IV STA (23:09)
--- NOTE | 2020-11-27 23:18 | ED Chest Pain ---
General Chief Complaint: Chest Pain Stated Complaint: CP Nursing Triage Note: Pt brought in by ems with complaints of chest pain that started about 1 and a half hours prior to calling ems. Source: patient, EMS, old records History of Present Illness Date Seen by Provider: Nov 27, 2020 Time Seen by Provider: 22:48 Initial Comments 65-year-old female presenting from [facility] by EMS due to waking up with sharp chest pain in the epigastric area. Pain is reproducible with palpation. She denies any fall or injury. She has a cardiac history with 9 stents in her heart. She has recent diagnosis of bladder cancer. She has recently been in the hospital for UTI and sepsis last November 20. She has no nausea or vomiting. She states her pain is rapidly improving without treatment. She denies having similar pains when she had cardiac disease in the past. Per patient and her daughter she has not been getting up out of bed since discharge last week. Daughter reports patient has been just laying in bed and not been able to get up and use her legs. She has not been eating hardly anything since getting home from the hospital. She has a caregiver that helps for a few hours during the day. She primarily is laying in bed and go to the bathroom through the Davis catheter as well as stooling on herself through an adult diaper. Timing/Duration: 1-3 hours (Approximately 90 minutes prior to arrival) Severity/Quality: moderate, sharp, stabbing Location: substernal, epigastric Radiation: no radiation Activities at Onset: sleep ASA po MANAGER PROPOSAL: No NTG SL MANAGER PROPOSAL: No Associated Symptoms: abdominal pain (Chronic from bladder cancer); No back pain, No diaphoresis, No dizziness; edema (Chronic), fatigue; No fever/chills, No headache, No nausea/vomiting, No rash; shortness of breath (Chronic); No swelling/lump in chest, No syncope; weakness (Generalized) Allergies and Home Medications Allergies Coded Allergies: No Known Drug Allergies (Unverified , 06/16/17) Home Medications Albuterol Sulfate 1 Puff Puff, 2 PUFF INH Q4H PRN for SHORTNESS OF BREATH, (Reported) Cefdinir 300 Mg Capsule, 300 MG PO BID Prescribed by: PAUL LANCASTER on 11/23/20 1233 Cetirizine HCl 10 Mg Tablet, 10 MG PO DAILY, (Reported) Duloxetine HCl 60 Mg Capsule.dr, 60 MG PO BID, (Reported) Ferrous Sulfate 325 Mg Tablet, 325 MG PO BID, (Reported) Folic Acid 1 Mg Tablet, 1 MG PO DAILY, (Reported) Metoprolol Tartrate 50 Mg Tablet, 50 MG PO BID, (Reported) Multivitamins-Min/FA/Ginkgo 1 Each Tablet, 1 TAB PO DAILY, (Reported) Pantoprazole Sodium 40 Mg Tablet.dr, 40 MG PO DAILY, (Reported) Rivastigmine 4.6 Mg Patch, 4.6 MG TD DAILY, (Reported) Sucralfate 1 Gm Tablet, 1 GM PO ACHS Chew tablet to a slurry and then swallow Prescribed by: PARTH NOBLE on 11/28/20 0001 Patient Home Medication List Home Medication List Reviewed: Yes Review of Systems Review of Systems Constitutional: No chills, No fever; weakness (General) EENTM: No Symptoms Reported Respiratory: See HPI Cardiovascular: See HPI Gastrointestinal: See HPI Genitourinary: Hematuria (Chronic from her bladder cancer), Other (Indwelling Davis) Musculoskeletal: joint pain (Chronic joint pain from hip and shoulder issues) Skin: no symptoms reported Psychiatric/Neurological: Anxiety Past Mffpuce-Eoushf-Shmpjt Hx Patient Social History Tobacco Use?: No Use of E-Cig and/or Vaping dev: No Substance use?: No Immunizations Up To Date Tetanus Booster (TDap): Unknown PED Vaccines UTD: No Seasonal Allergies Seasonal Allergies: Yes (LEAVES AND TREES) Past Medical History Surgeries: Yes (R THR X2, L THR, STENTS X9, COLON RESECTION, MACROPLASTIQUE) Coronary Stent, Gallbladder, Joint Replacement, Tubal Ligation Respiratory: No Currently Using CPAP: No Currently Using BIPAP: No Cardiac: Yes (9 STENTS) Coronary Artery Disease, Heart Attack, High Cholesterol, Hypertension Neurological: No Reproductive Disorders: No Sexually Transmitted Disease: No HIV/AIDS: No Genitourinary: Yes (INCONTINENCY; bladder cancer) Bladder Infection, UTI-Chronic Gastrointestinal: Yes (ESOPHAGEAL STRICTURE) Gastroesophageal Reflux, Chronic Diarrhea Musculoskeletal: Yes ("HIPS DISSINEGRATED") Arthritis, Fractures Endocrine: No HEENT: No (GLASSES, DENTURES) Loss of Vision: Denies Hearing Impairment: Denies, Bilateral Hearing Aide Cancer: Yes Bladder Psychosocial: Yes Anxiety, Depression Integumentary: No Blood Disorders: No Adverse Reaction/Blood Tranf: No (HAS HAD BLOOD WITH NO REACTION) Family Medical History Diabetes mellitus 19 MOTHER G8 BROTHER G8 SISTER Diabetes, Hypertension Physical Exam Vital Signs Vital Signs - First Documented 11/27/20 22:51 Pulse 74 Resp 18 B/P (MAP) 118/70 (86) Pulse Ox 94 O2 Delivery Room Air Capillary Refill : Less Than 3 Seconds Height, Weight, BMI Height: 5'4.00" Weight: 239lbs. 9.0oz. 108.847570km; 24.19 BMI Method:Stated General Appearance: No Apparent Distress Neck: Non Tender, Supple Respiratory: Chest Non Tender, Lungs Clear, Normal Breath Sounds Cardiovascular: Regular Rate, Rhythm, Normal Peripheral Pulses Gastrointestinal: Normal Bowel Sounds, No Pulsatile Mass, Soft, Tenderness (Epigastric tenderness to palpation that reproduces her complaint of chest pain) Rectal: Deferred Extremity: Normal Capillary Refill, Pedal Edema (Trace to 1+ bilateral lower extremity) Neurologic/Psychiatric: Alert, Oriented x3 Skin: Warm/Dry, Pallor Images 1 - Tender to palpation in the epigastric area of her abdomen reproduces the pain that she states made her call EMS Progress/Results/Core Measures Results/Orders Lab Results Laboratory Tests Test 11/27/20 23:07 Range/Units White Blood Count 2.9 L 4.3-11.0 10^3/uL Red Blood Count 3.42 L 4.35-5.85 10^6/uL Hemoglobin 9.8 L 11.5-16.0 G/DL Hematocrit 33 L 35-52 % Mean Corpuscular Volume 96 80-99 FL Mean Corpuscular Hemoglobin 29 25-34 PG Mean Corpuscular Hemoglobin Concent 30 L 32-36 G/DL Red Cell Distribution Width 21.0 H 10.0-14.5 % Platelet Count 244 130-400 10^3/uL Mean Platelet Volume 9.5 7.4-10.4 FL Immature Granulocyte % (Auto) 0 % Neutrophils (%) (Auto) 54 42-75 % Lymphocytes (%) (Auto) 22 12-44 % Monocytes (%) (Auto) 18 H 0-12 % Eosinophils (%) (Auto) 5 0-10 % Basophils (%) (Auto) 1 0-10 % Neutrophils # (Auto) 1.6 L 1.8-7.8 X 10^3 Lymphocytes # (Auto) 0.7 L 1.0-4.0 X 10^3 Monocytes # (Auto) 0.5 0.0-1.0 X 10^3 Eosinophils # (Auto) 0.1 0.0-0.3 10^3/uL Basophils # (Auto) 0.0 0.0-0.1 10^3/uL Immature Granulocyte # (Auto) 0.0 0.0-0.1 10^3/uL Neutrophils % (Manual) 60 % Lymphocytes % (Manual) 12 % Monocytes % (Manual) 18 % Eosinophils % (Manual) 7 % Basophils % (Manual) 0 % Band Neutrophils 3 % Anisocytosis SLIGHT Prothrombin Time 13.2 12.2-14.7 SEC INR Comment 1.0 0.8-1.4 Activated Partial Thromboplast Time 32 24-35 SEC Sodium Level 136 135-145 MMOL/L Potassium Level 5.0 3.6-5.0 MMOL/L Chloride Level 110 H 98-107 MMOL/L Carbon Dioxide Level 18 L 21-32 MMOL/L Anion Gap 8 5-14 MMOL/L Blood Urea Nitrogen 14 7-18 MG/DL Creatinine 0.80 0.60-1.30 MG/DL Estimat Glomerular Filtration Rate > 60 BUN/Creatinine Ratio 18 Glucose Level 87 70-105 MG/DL Calcium Level 7.9 L 8.5-10.1 MG/DL Corrected Calcium 9.7 8.5-10.1 MG/DL Magnesium Level 1.5 L 1.6-2.4 MG/DL Total Bilirubin 0.2 0.1-1.0 MG/DL Aspartate Amino Transf (AST/SGOT) 74 H 5-34 U/L Alanine Aminotransferase (ALT/SGPT) 28 0-55 U/L Alkaline Phosphatase 243 H 40-136 U/L Troponin I < 0.30 <0.30 NG/ML Pro-B-Type Natriuretic Peptide 1290.0 H <75.0 PG/ML Total Protein 4.5 L 6.4-8.2 GM/DL Albumin 1.8 L 3.2-4.5 GM/DL Lipase 14 8-78 U/L My Orders Orders - PARTH NOBLE MD Cbc With Automated Diff (11/27/20 23:09) Magnesium (11/27/20 23:09) Chest 1 View Ap/Pa Only (11/27/20 23:09) Ekg Tracing (11/27/20 23:09) Comprehensive Metabolic Panel (11/27/20 23:) Protime With Inr (11/27/20:) Partial Thromboplastin Time (11/27/20:) O2 (11/27/20:) Monitor-Rhythm Ecg Trace Only (11/27/20 23:09) Ed Iv/Invasive Line Start (11/27/20 23:09) Lipase (11/27/20:) Troponin I Fs (11/27/20:) Probnp Fs (11/27/20 23:) Pantoprazole Injection (Protonix Injecti (11/27/20 23:) Manual Differential (11/27/20 23:07) Vital Signs/I&O 11/27/20 11/28/20 22:51 00:09 Pulse 74 74 Resp 18 20 B/P (MAP) 118/70 (86) 113/62 Pulse Ox 94 95 O2 Delivery Room Air Room Air Blood Pressure Mean: 86 Progress Progress Note #1: Progress Note Obtain electrocardiogram, labs, chest x-ray. Try protonix for pain since it is improving on its own and is reproducible with palpation. Progress Note #2: Progress Note CXR does not show infiltrate or effusion. ECG appears stable from prior tracings with irregular rhythm but no ischemia. She has reproducible epigastric pain. It is better after Protonix. Progress Note #3: Progress Note labs do not show elevated troponin and considering she has had pain continued for several hours if this was cardiac in nature she should have had an elevation of troponin by now. Will treat for gastritis and have her check with clinic about NH placement for strengthening and rehab. As staff was going to help pt to get in to wheelchair and then to daughter's vehicle, she states she can not stand or transfer. She reports her caregiver is lifting her up and then turning with her to move her around at [facility]. She is not getting up or walking or getting out of bed on her own and can not ambulate or bear weight. Due to all this she really should be getting more assistance at home or go to NH for higher level of care. When I bring that up with pt she becomes tearful and upset. Diagnostic Imaging Diagonstic Imaging: Xray Plain Films/CT/US/NM/MRI: chest Comments On my review of her 1 view chest x-ray she has no acute infiltrate or effusion Reviewed: Reviewed by Me Departure Impression Primary Impression: Epigastric abdominal pain Additional Impressions: Stress and adjustment reaction Leg weakness, bilateral Failure to thrive in adult Disposition: 01 HOME, SELF-CARE Condition: Stable Departure-Patient Inst. Decision time for Depature: 00:00 Referrals: EVELYNE ANTON APRN (PCP/Family) Primary Care Physician Patient Instructions: Gastritis ED, Acid Reflux, Adult and Adolescent ED, Abdominal Pain, Adult ED Add. Discharge Instructions: Consider working with the clinic and your regular providers to go to half-way to get more rehab and strengthening. Continue taking medicine as prescribed Try eating a more balanced diet All discharge instructions reviewed with patient and/or family. Voiced understanding. Scripts Sucralfate (Sucralfate) 1 Gm Tablet 1 GM PO ACHS for gastritis for 14 Days, #56 TAB 1 Refill Chew tablet to a slurry and then swallow Prov: PARTH NOBLE MD 11/28/20 PARTH NOBLE MD Nov 27, 2020 23:18
[2020-11-27 23:22] LABS: HEMATOCRIT 33 % (35-52); HEMOGLOBIN 9.8 G/DL (11.5-16.0); MEAN CORPUSCULAR HEMOGLOBIN 29 PG (25-34); MEAN CORPUSCULAR VOLUME 96 FL (80-99); WHITE BLOOD COUNT 2.9 10^3/uL (4.3-11.0)
[2020-11-27 23:23] LABS: BASOPHILS % (AUTO) 1 % (0-10); EOSINOPHILS % (AUTO) 5 % (0-10); LYMPHOCYTES % (AUTO) 22 % (12-44); MEAN CORPUSCULAR HGB CONC 30 G/DL (32-36); MEAN PLATELET VOLUME 9.5 FL (7.4-10.4); MONOCYTES % (AUTO) 18 % (0-12); NEUTROPHILS # (AUTO) 1.6 X 10^3 (1.8-7.8); NEUTROPHILS % (AUTO) 54 % (42-75); PLATELET COUNT 244 10^3/uL (130-400)
[2020-11-27 23:24] LABS: EOSINOPHILS # (AUTO) 0.1 10^3/uL (0.0-0.3); LYMPHOCYTES # (AUTO) 0.7 X 10^3 (1.0-4.0); MONOCYTES # (AUTO) 0.5 X 10^3 (0.0-1.0)
[2020-11-27 23:32] LABS: PROTHROMBIN TIME PATIENT 13.2 SEC (12.2-14.7)
[2020-11-27 23:43] LABS: ANISOCYTOSIS SLIGHT; BAND NEUTROPHILS 3 %; BASOPHILS % (MANUAL) 0 %; EOSINOPHILS % (MANUAL) 7 %; LYMPHOCYTES % (MANUAL) 12 %; MONOCYTES % (MANUAL) 18 %; NEUTROPHILS % (MANUAL) 60 %
[2020-11-27 23:53] LABS: BUN/CREATININE RATIO 18; CALCIUM 7.9 MG/DL (8.5-10.1); CARBON DIOXIDE 18 MMOL/L (21-32); CHLORIDE 110 MMOL/L (98-107); GFR ESTIMATED > 60; GLUCOSE 87 MG/DL (70-105); SODIUM 136 MMOL/L (135-145)
[2020-11-27 23:54] LABS: ALANINE AMINOTRANSFERASE 28 U/L (0-55); ALBUMIN 1.8 GM/DL (3.2-4.5); ALKALINE PHOSPHATASE 243 U/L (40-136); BILIRUBIN,TOTAL 0.2 MG/DL (0.1-1.0); LIPASE 14 U/L (8-78); MAGNESIUM 1.5 MG/DL (1.6-2.4); TOTAL PROTEIN 4.5 GM/DL (6.4-8.2)
[2020-11-28] MEDS ORDERED: SUCR1TAB PO (00:01)
[2020-11-28 00:09] VITALS: BP 113/62
--- NOTE | 2020-11-28 07:37 | Diagnostic Imaging Report ---
HISTORY: Epigastric chest pain TECHNIQUE: Single frontal view of the chest COMPARISON: 09/27/2020 FINDINGS: Lung volumes are mildly low. There are bibasilar airspace opacities which appear mildly increased. Patchy airspace opacities are seen elsewhere in the lungs. There is no pleural effusion or pneumothorax. The cardiac silhouette is stable in size. There are severe degenerative changes in the bilateral shoulders. IMPRESSION: 1. Bilateral airspace opacities, concerning for infection in the appropriate clinical setting. Dictated by: Dictated on workstation # [id number]
== END 2020-11-28 00:09 | disposition home or self-care (01) ==
LOC: EDUNIT# 22:47 → ER FS 22:48
DX: R10.13 Epigastric pain (principal); F43.20 Adjustment disorder, unspecified; M62.81 Muscle weakness (generalized); R62.7 Adult failure to thrive; I25.2 Old myocardial infarction; I10 Essential (primary) hypertension; K21.9 Gastro-esophageal reflux disease without esophagitis; F41.9 Anxiety disorder, unspecified; F32.9 Major depressive disorder, single episode, unspecified; Z95.5 Presence of coronary angioplasty implant and graft; Z79.899 Other long term (current) drug therapy
CPT/HCPCS: 36415; 71045; 80053; 83690; 83735; 83880; 84484; 85007; 85027; 85610; 85730; 93005; 93041

== ENCOUNTER 2020-11-28 13:23 | Emergency (ER) | payer MEDICARE, MEDICAID ==
[~2020-11-28] VITALS: Ht 170 cm; Wt 74.0 kg
[~2020-11-28 13:23] MED LIST changes: +SUCR1TAB PO
[2020-11-28] MEDS ORDERED: NS IV 1000 ML 1,000 ML IV SCH (13:45)
--- NOTE | 2020-11-28 13:48 | ED General ---
General Stated Complaint: CONFUSION History of Present Illness Date Seen by Provider: Nov 28, 2020 Time Seen by Provider: 13:40 Initial Comments 65-year-old female presents from her assisted living residence by EMS with complaint of feeling weak. Seen recently in this ER and diagnosed with UTI. Patient with past medical history significant for bladder cancer and indwelling moyer catheter. Allergies and Home Medications Allergies Coded Allergies: No Known Drug Allergies (Unverified , 06/16/17) Home Medications Albuterol Sulfate 1 Puff Puff, 2 PUFF INH Q4H PRN for SHORTNESS OF BREATH, (Reported) Cefdinir 300 Mg Capsule, 300 MG PO BID Prescribed by: PAUL LANCASTER on 11/23/20 1233 Cetirizine HCl 10 Mg Tablet, 10 MG PO DAILY, (Reported) Duloxetine HCl 60 Mg Capsule.dr, 60 MG PO BID, (Reported) Ferrous Sulfate 325 Mg Tablet, 325 MG PO BID, (Reported) Folic Acid 1 Mg Tablet, 1 MG PO DAILY, (Reported) Metoprolol Tartrate 50 Mg Tablet, 50 MG PO BID, (Reported) Multivitamins-Min/FA/Ginkgo 1 Each Tablet, 1 TAB PO DAILY, (Reported) Pantoprazole Sodium 40 Mg Tablet.dr, 40 MG PO DAILY, (Reported) Rivastigmine 4.6 Mg Patch, 4.6 MG TD DAILY, (Reported) Sucralfate 1 Gm Tablet, 1 GM PO ACHS Chew tablet to a slurry and then swallow Prescribed by: PARTH NOBLE on 11/28/20 0001 Patient Home Medication List Home Medication List Reviewed: Yes Review of Systems Review of Systems Constitutional: No dizziness, No fever; malaise, weakness Respiratory: No cough, No short of breath Cardiovascular: No chest pain, No edema Gastrointestinal: No abdominal pain; loss of appetite; No nausea, No vomiting Skin: No change in color, No lesions, No lumps, No rash Past Qilxnqv-Vvpkco-Vhqycn Hx Immunizations Up To Date Tetanus Booster (TDap): Unknown PED Vaccines UTD: No Seasonal Allergies Seasonal Allergies: Yes (LEAVES AND TREES) Past Medical History Surgeries: Yes (R THR X2, L THR, STENTS X9, COLON RESECTION, MACROPLASTIQUE) Coronary Stent, Gallbladder, Joint Replacement, Tubal Ligation Respiratory: No Currently Using CPAP: No Currently Using BIPAP: No Cardiac: Yes (9 STENTS) Coronary Artery Disease, Heart Attack, High Cholesterol, Hypertension Neurological: No Reproductive Disorders: No Sexually Transmitted Disease: No HIV/AIDS: No Genitourinary: Yes (INCONTINENCY; bladder cancer) Bladder Infection, UTI-Chronic Gastrointestinal: Yes (ESOPHAGEAL STRICTURE) Gastroesophageal Reflux, Chronic Diarrhea Musculoskeletal: Yes ("HIPS DISSINEGRATED") Arthritis, Fractures Endocrine: No HEENT: No (GLASSES, DENTURES) Loss of Vision: Denies Hearing Impairment: Denies, Bilateral Hearing Aide Cancer: Yes Bladder Psychosocial: Yes Anxiety, Depression Integumentary: No Blood Disorders: No Adverse Reaction/Blood Tranf: No (HAS HAD BLOOD WITH NO REACTION) Family Medical History Diabetes mellitus 19 MOTHER G8 BROTHER G8 SISTER Diabetes, Hypertension Physical Exam Vital Signs Vital Signs - First Documented 11/28/20 13:58 Temp 36.5 Pulse 68 Resp 18 B/P (MAP) 92/52 (65) Pulse Ox 94 O2 Delivery Room Air Capillary Refill : Height, Weight, BMI Height: 5'4.00" Weight: 239lbs. 9.0oz. 108.920696bq; 24.19 BMI Method:Stated General Appearance: No Apparent Distress, Chronically ill HEENT: PERRL/EOMI, Normal ENT Inspection Respiratory: Chest Non Tender, Lungs Clear, Normal Breath Sounds, No Accessory Muscle Use Cardiovascular: Regular Rate, Rhythm, No Edema, No JVD Gastrointestinal: Non Tender, Soft; No Distended, No Guarding Back: Normal Inspection, No CVA Tenderness Neurologic/Psychiatric: Alert, Oriented x3, No Motor/Sensory Deficits Skin: Normal Color, Warm/Dry Focused Exam Lactate Level 11/28/20 14:00: Lactic Acid Level 1.40 Lactic Acid Level Laboratory Tests Test 11/28/20 14:00 Lactic Acid Level 1.40 MMOL/L (0.50-2.00) Progress/Results/Core Measures Suspected Sepsis SIRS Temperature: Pulse: Respiratory Rate: Laboratory Tests 11/28/20 13:45: White Blood Count 2.1L Blood Pressure / Mean: 11/28/20 14:00: Lactic Acid Level 1.40 Laboratory Tests 11/28/20 13:45: Creatinine 0.71, Platelet Count 228, Total Bilirubin 0.2 Results/Orders Lab Results Laboratory Tests Test 11/28/20 13:44 11/28/20 13:45 11/28/20 14:00 Range/Units Urine Color RED H Urine Clarity TURBID Urine pH 6.0 5-9 Urine Specific [place] 1.015 L 1.016-1.022 Urine Protein 2+ H NEGATIVE Urine Glucose (UA) NEGATIVE NEGATIVE Urine Ketones NEGATIVE NEGATIVE Urine Nitrite NEGATIVE NEGATIVE Urine Bilirubin NEGATIVE NEGATIVE Urine Urobilinogen 0.2 < = 1.0 MG/DL Urine Leukocyte Esterase 1+ H NEGATIVE Urine RBC (Auto) 3+ H NEGATIVE Urine RBC TNTC H /HPF Urine WBC 5-10 H /HPF Urine Squamous Epithelial Cells RARE /HPF Urine Renal Epithelial Cells 0-2 /HPF Urine Crystals NONE /LPF Urine Bacteria NEGATIVE /HPF Urine Casts PRESENT /LPF Urine Hyaline Casts 0-2 H /LPF Urine Mucus MODERATE H /LPF Urine Culture Indicated NO White Blood Count 2.1 L 4.3-11.0 10^3/uL Red Blood Count 3.06 L 4.35-5.85 10^6/uL Hemoglobin 8.9 L 11.5-16.0 G/DL Hematocrit 29 L 35-52 % Mean Corpuscular Volume 94 80-99 FL Mean Corpuscular Hemoglobin 29 25-34 PG Mean Corpuscular Hemoglobin Concent 31 L 32-36 G/DL Red Cell Distribution Width 21.0 H 10.0-14.5 % Platelet Count 228 130-400 10^3/uL Mean Platelet Volume 9.0 7.4-10.4 FL Immature Granulocyte % (Auto) 1 % Neutrophils (%) (Auto) 49 42-75 % Lymphocytes (%) (Auto) 22 12-44 % Monocytes (%) (Auto) 24 H 0-12 % Eosinophils (%) (Auto) 4 0-10 % Basophils (%) (Auto) 1 0-10 % Neutrophils # (Auto) 1.0 L 1.8-7.8 X 10^3 Lymphocytes # (Auto) 0.5 L 1.0-4.0 X 10^3 Monocytes # (Auto) 0.5 0.0-1.0 X 10^3 Eosinophils # (Auto) 0.1 0.0-0.3 10^3/uL Basophils # (Auto) 0.0 0.0-0.1 10^3/uL Immature Granulocyte # (Auto) 0.0 0.0-0.1 10^3/uL Neutrophils % (Manual) 63 % Lymphocytes % (Manual) 20 % Monocytes % (Manual) 14 % Eosinophils % (Manual) 2 % Band Neutrophils 1 % Platelet Estimate ADEQUATE Polychromasia SLIGHT Anisocytosis MODERATE Blood Morphology Comment NORMAL Sodium Level 136 135-145 MMOL/L Potassium Level 4.3 3.6-5.0 MMOL/L Chloride Level 110 H 98-107 MMOL/L Carbon Dioxide Level 18 L 21-32 MMOL/L Anion Gap 8 5-14 MMOL/L Blood Urea Nitrogen 12 7-18 MG/DL Creatinine 0.71 0.60-1.30 MG/DL Estimat Glomerular Filtration Rate > 60 BUN/Creatinine Ratio 17 Glucose Level 95 70-105 MG/DL Calcium Level 7.8 L 8.5-10.1 MG/DL Corrected Calcium 9.7 8.5-10.1 MG/DL Total Bilirubin 0.2 0.1-1.0 MG/DL Aspartate Amino Transf (AST/SGOT) 31 5-34 U/L Alanine Aminotransferase (ALT/SGPT) 20 0-55 U/L Alkaline Phosphatase 210 H 40-136 U/L Total Protein 3.9 L 6.4-8.2 GM/DL Albumin 1.6 L 3.2-4.5 GM/DL Lactic Acid Level 1.40 0.50-2.00 MMOL/L My Orders Orders - ROVENSTINESABA L DO Ed Iv/Invasive Line Start (11/28/20 13:44) Cbc With Automated Diff (11/28/20 13:44) Comprehensive Metabolic Panel (11/28/20 13:44) Urinalysis (11/28/20 13:44) Lactic Acid Analyzer (11/28/20 13:44) Ns Iv 1000 Ml (Sodium Chloride 0.9%) (11/28/20 13:45) Manual Differential (11/28/20 13:45) Vital Signs/I&O 11/28/20 11/28/20 13:58 14:45 Temp 36.5 36.5 Pulse 68 72 Resp 18 16 B/P (MAP) 92/52 (65) 101/61 Pulse Ox 94 94 O2 Delivery Room Air Room Air Capillary Refill : Departure Impression Primary Impression: Anemia Qualified Codes: D64.9 - Anemia, unspecified Additional Impressions: Bladder cancer Qualified Codes: C67.9 - Malignant neoplasm of bladder, unspecified Leukopenia Qualified Codes: D72.819 - Decreased white blood cell count, unspecified Generalized weakness Hypotension Qualified Codes: I95.9 - Hypotension, unspecified Disposition: 01 HOME, SELF-CARE Condition: Stable Departure-Patient Inst. Referrals: EVELYNE ANTON APRN (PCP) Primary Care Physician NYLA STROUD MD Patient Instructions: Low Blood Pressure (DC), Weakness ED Add. Discharge Instructions: REturn to the ER for any worsening of your condition Hold metoprolol dose for blood pressure < 110/ x Take the metoprolol for blood pressure > 140/ x Call Dr Stroud's office on Monday morning to ask for assistance with moving to a higher level of care // living next week Take your blood pressure daily to monitor and discuss your readings and the necessity of this blood pressure medication with Dr Stroud. SABA GOLD DO Nov 28, 2020 13:48
[2020-11-28 14:12] LABS: BASOPHILS % (AUTO) 1 % (0-10); EOSINOPHILS % (AUTO) 4 % (0-10); HEMATOCRIT 29 % (35-52); HEMOGLOBIN 8.9 G/DL (11.5-16.0); LYMPHOCYTES % (AUTO) 22 % (12-44); MEAN CORPUSCULAR HEMOGLOBIN 29 PG (25-34); MEAN CORPUSCULAR HGB CONC 31 G/DL (32-36); MEAN CORPUSCULAR VOLUME 94 FL (80-99); MONOCYTES % (AUTO) 24 % (0-12); NEUTROPHILS % (AUTO) 49 % (42-75); PLATELET COUNT 228 10^3/uL (130-400); WHITE BLOOD COUNT 2.1 10^3/uL (4.3-11.0)
[2020-11-28 14:13] LABS: EOSINOPHILS # (AUTO) 0.1 10^3/uL (0.0-0.3); LYMPHOCYTES # (AUTO) 0.5 X 10^3 (1.0-4.0); MONOCYTES # (AUTO) 0.5 X 10^3 (0.0-1.0)
[2020-11-28 14:13] LABS: BILIRUBIN,URINE NEGATIVE (NEGATIVE); CLARITY,URINE TURBID; COLOR,URINE RED; GLUCOSE, URINE (UA) NEGATIVE (NEGATIVE); KETONES,URINE NEGATIVE (NEGATIVE); LEUKOCYTE ESTERASE ,URINE 1+ (NEGATIVE); NITRITE,URINE NEGATIVE (NEGATIVE); PROTEIN,URINE 2+ (NEGATIVE)
[2020-11-28 14:14] LABS: RBC,URINE TNTC /HPF
[2020-11-28 14:16] LABS: BACTERIA,URINE NEGATIVE /HPF; RENAL EPITHELIAL CELLS,URINE 0-2 /HPF; SQUAMOUS EPITHELIAL CELL,UR RARE /HPF
[2020-11-28 14:17] LABS: HYALINE CASTS, URINE 0-2 /LPF
[2020-11-28 14:24] LABS: CHLORIDE 110 MMOL/L (98-107); POTASSIUM 4.3 MMOL/L (3.6-5.0); SODIUM 136 MMOL/L (135-145)
[2020-11-28 14:25] LABS: ALANINE AMINOTRANSFERASE 20 U/L (0-55); ALBUMIN 1.6 GM/DL (3.2-4.5); ALKALINE PHOSPHATASE 210 U/L (40-136); BAND NEUTROPHILS 1 %; BILIRUBIN,TOTAL 0.2 MG/DL (0.1-1.0); BUN/CREATININE RATIO 17; CALCIUM 7.8 MG/DL (8.5-10.1); CARBON DIOXIDE 18 MMOL/L (21-32); CREATININE SERUM 0.71 MG/DL (0.60-1.30); EOSINOPHILS % (MANUAL) 2 %; GFR ESTIMATED > 60; GLUCOSE 95 MG/DL (70-105); LYMPHOCYTES % (MANUAL) 20 %; MONOCYTES % (MANUAL) 14 %; NEUTROPHILS % (MANUAL) 63 %; TOTAL PROTEIN 3.9 GM/DL (6.4-8.2)
[2020-11-28 14:27] LABS: ANISOCYTOSIS MODERATE; PLATELET ESTIMATE ADEQUATE; POLYCHROMASIA SLIGHT; RBC MORPH NORMAL
[2020-11-28 14:45] VITALS: BP 101/61
== END 2020-11-28 15:17 | disposition home or self-care (01) ==
LOC: EDUNIT# 13:23 → ER FS 13:32
DX: C67.9 Malignant neoplasm of bladder, unspecified (principal); D64.9 Anemia, unspecified; I95.9 Hypotension, unspecified; D72.819 Decreased white blood cell count, unspecified; I10 Essential (primary) hypertension; I25.10 Atherosclerotic heart disease of native coronary artery without angina pectoris; I25.2 Old myocardial infarction; F41.9 Anxiety disorder, unspecified; F32.9 Major depressive disorder, single episode, unspecified; K21.9 Gastro-esophageal reflux disease without esophagitis; Z95.5 Presence of coronary angioplasty implant and graft; Z79.899 Other long term (current) drug therapy
CPT/HCPCS: 36415; 80053; 81000; 83605; 85007; 85027

== ENCOUNTER 2020-11-29 22:25 | Emergency (ER) | payer MEDICARE, MEDICAID ==
--- NOTE | 2020-11-29 22:33 | ED General ---
General Chief Complaint: General Problems/Pain Source of Information: Patient, EMS, Old Records History of Present Illness Date Seen by Provider: Nov 29, 2020 Time Seen by Provider: 22:28 Initial Comments 65-year-old female presenting from [facility] by EMS. Patient had pushed her life alert button for the second time this evening out of concern for seeing people coming in and out of her apartment. She has had hallucinations for several weeks now. Initially it was thought that this might be secondary to some of her medications. However her medicine stopped because embolizations have been stopped up and off. She then was thought to be having hallucinations secondary to a UTI and was admitted to the hospital in [place] around November 22. However she continues to have hallucinations despite treatment for UTI as well as the medication adjustment and stopping of some of her medicines thought to be causing hallucinations. She does have bladder cancer and has been in and out of the hospital recently. She has been too weak to have any aggressive treatment done for her bladder cancer. She has been at [facility] for approximately a month after being discharged from [facility] and had done well there. However when she left the retirement she went back to [facility] assisted living and has been essentially staying in bed. Now she is debilitated to the point that she is bedbound. This is the third day in a row that she has come to the emergency department due to pressing her call button. She states she is tired of seeing people climbing in and out of her windows of the apartment and hearing them talking. She denies being suicidal or homicidal and denies the people telling her to hurt herself or others. Associated Systoms: No Chest Pain, No Cough, No Diaphoresis, No Fever/Chills, No Headaches; Loss of Appetite, Malaise; No Nausea/Vomiting, No Seizure, No Shortness of Air, No Syncope; Weakness (general) Allergies and Home Medications Allergies Coded Allergies: No Known Drug Allergies (Unverified , 06/16/17) Home Medications Albuterol Sulfate 1 Puff Puff, 2 PUFF INH Q4H PRN for SHORTNESS OF BREATH, (Reported) Cefdinir 300 Mg Capsule, 300 MG PO BID Prescribed by: PAUL LANCASTER on 11/23/20 1233 Cetirizine HCl 10 Mg Tablet, 10 MG PO DAILY, (Reported) Duloxetine HCl 60 Mg Capsule.dr, 60 MG PO BID, (Reported) Ferrous Sulfate 325 Mg Tablet, 325 MG PO BID, (Reported) Folic Acid 1 Mg Tablet, 1 MG PO DAILY, (Reported) Metoprolol Tartrate 50 Mg Tablet, 50 MG PO BID, (Reported) Multivitamins-Min/FA/Ginkgo 1 Each Tablet, 1 TAB PO DAILY, (Reported) Pantoprazole Sodium 40 Mg Tablet.dr, 40 MG PO DAILY, (Reported) Rivastigmine 4.6 Mg Patch, 4.6 MG TD DAILY, (Reported) Sucralfate 1 Gm Tablet, 1 GM PO ACHS Chew tablet to a slurry and then swallow Prescribed by: PARTH NOBLE on 11/28/20 0001 Patient Home Medication List Home Medication List Reviewed: Yes Review of Systems Review of Systems Constitutional: No chills, No fever; malaise EENTM: no symptoms reported Respiratory: cough (chronic dry) Cardiovascular: no symptoms reported Gastrointestinal: no symptoms reported Genitourinary: hematuria (chronic with bladder cancer and indwelling moyer) Musculoskeletal: joint pain (chronic shoulder and hip pain) Skin: other (chronic pallor with chronic anemia) Psychiatric/Neurological: Anxiety, Emotional Problems, Other (auditory and visual hallucinations) Past Kzctqji-Bgdpvj-Workmy Hx Patient Social History Tobacco Use?: No Smoking Status: Never a Smoker Use of E-Cig and/or Vaping dev: No Substance use?: No Alcohol Use?: No Pt feels they are or have been: No Immunizations Up To Date Tetanus Booster (TDap): Unknown PED Vaccines UTD: No Seasonal Allergies Seasonal Allergies: Yes (LEAVES AND TREES) Past Medical History Surgeries: Yes (R THR X2, L THR, STENTS X9, COLON RESECTION, MACROPLASTIQUE) Coronary Stent, Gallbladder, Joint Replacement, Tubal Ligation Respiratory: No Currently Using CPAP: No Currently Using BIPAP: No Cardiac: Yes (9 STENTS) Coronary Artery Disease, Heart Attack, High Cholesterol, Hypertension Neurological: No Reproductive Disorders: No Sexually Transmitted Disease: No HIV/AIDS: No Genitourinary: Yes (INCONTINENCY; bladder cancer) Bladder Infection, UTI-Chronic Gastrointestinal: Yes (ESOPHAGEAL STRICTURE) Gastroesophageal Reflux, Chronic Diarrhea Musculoskeletal: Yes ("HIPS DISSINEGRATED") Arthritis, Fractures Endocrine: No HEENT: No (GLASSES, DENTURES) Loss of Vision: Denies Hearing Impairment: Denies, Bilateral Hearing Aide Cancer: Yes Bladder Psychosocial: Yes Anxiety, Depression Integumentary: No Blood Disorders: No Adverse Reaction/Blood Tranf: No (HAS HAD BLOOD WITH NO REACTION) Family Medical History Diabetes mellitus 19 MOTHER G8 BROTHER G8 SISTER Diabetes, Hypertension Physical Exam Vital Signs Vital Signs - First Documented 11/29/20 22:29 Temp 36.1 Pulse 105 Resp 18 B/P (MAP) 130/73 (92) Pulse Ox 96 O2 Delivery Room Air Capillary Refill : Height, Weight, BMI Height: 5'4.00" Weight: 239lbs. 9.0oz. [id number]; 25.00 BMI Method:Stated General Appearance: No Apparent Distress, Anxious, Chronically ill HEENT: Pharynx Normal Neck: Non Tender Respiratory: Chest Non Tender, No Accessory Muscle Use, No Respiratory D istress, Decreased Breath Sounds Cardiovascular: Regular Rate, Rhythm, Normal Peripheral Pulses, Extra Beats Gastrointestinal: Normal Bowel Sounds, No Pulsatile Mass, Non Tender, Soft Rectal: Deferred Extremity: Normal Capillary Refill, Pedal Edema (trace to 1+) Neurologic/Psychiatric: Alert, Oriented x3 Skin: Warm/Dry, Pallor Progress/Results/Core Measures Suspected Sepsis SIRS Temperature: Pulse: Respiratory Rate: Laboratory Tests 11/29/20 22:44: White Blood Count 2.1L Blood Pressure / Mean: Laboratory Tests 11/29/20 22:44: Creatinine 0.75, Platelet Count 246, Total Bilirubin 0.3 Results/Orders Lab Results Laboratory Tests Test 11/29/20 22:44 11/29/20 22:50 Range/Units White Blood Count 2.1 L 4.3-11.0 10^3/uL Red Blood Count 3.38 L 4.35-5.85 10^6/uL Hemoglobin 9.7 L 11.5-16.0 G/DL Hematocrit 32 L 35-52 % Mean Corpuscular Volume 95 80-99 FL Mean Corpuscular Hemoglobin 29 25-34 PG Mean Corpuscular Hemoglobin Concent 30 L 32-36 G/DL Red Cell Distribution Width 21.2 H 10.0-14.5 % Platelet Count 246 130-400 10^3/uL Mean Platelet Volume 9.2 7.4-10.4 FL Immature Granulocyte % (Auto) 1 % Neutrophils (%) (Auto) 50 42-75 % Lymphocytes (%) (Auto) 23 12-44 % Monocytes (%) (Auto) 22 H 0-12 % Eosinophils (%) (Auto) 4 0-10 % Basophils (%) (Auto) 1 0-10 % Neutrophils # (Auto) 1.0 L 1.8-7.8 X 10^3 Lymphocytes # (Auto) 0.5 L 1.0-4.0 X 10^3 Monocytes # (Auto) 0.5 0.0-1.0 X 10^3 Eosinophils # (Auto) 0.1 0.0-0.3 10^3/uL Basophils # (Auto) 0.0 0.0-0.1 10^3/uL Immature Granulocyte # (Auto) 0.0 0.0-0.1 10^3/uL Neutrophils % (Manual) 60 % Lymphocytes % (Manual) 31 % Monocytes % (Manual) 6 % Eosinophils % (Manual) 2 % Band Neutrophils 1 % Platelet Estimate ADEQUATE Polychromasia MODERATE Anisocytosis MODERATE Blood Morphology Comment NORMAL Sodium Level 141 135-145 MMOL/L Potassium Level 3.8 3.6-5.0 MMOL/L Chloride Level 113 H 98-107 MMOL/L Carbon Dioxide Level 18 L 21-32 MMOL/L Anion Gap 10 5-14 MMOL/L Blood Urea Nitrogen 11 7-18 MG/DL Creatinine 0.75 0.60-1.30 MG/DL Estimat Glomerular Filtration Rate > 60 BUN/Creatinine Ratio 15 Glucose Level 109 H 70-105 MG/DL Calcium Level 8.3 L 8.5-10.1 MG/DL Corrected Calcium 10.1 8.5-10.1 MG/DL Total Bilirubin 0.3 0.1-1.0 MG/DL Aspartate Amino Transf (AST/SGOT) 33 5-34 U/L Alanine Aminotransferase (ALT/SGPT) 19 0-55 U/L Alkaline Phosphatase 245 H 40-136 U/L Total Protein 4.3 L 6.4-8.2 GM/DL Albumin 1.7 L 3.2-4.5 GM/DL Salicylates Level < 0.3 L 5.0-20.0 MG/DL Acetaminophen Level < 10 L 10-30 UG/ML Serum Alcohol < 10 <10 MG/DL Urine Color RED H Urine Clarity TURBID Urine pH 6.5 5-9 Urine Specific [place] 1.015 L 1.016-1.022 Urine Protein 3+ H NEGATIVE Urine Glucose (UA) NEGATIVE NEGATIVE Urine Ketones 1+ H NEGATIVE Urine Nitrite NEGATIVE NEGATIVE Urine Bilirubin 1+ H NEGATIVE Urine Urobilinogen 4.0 < = 1.0 MG/DL Urine Leukocyte Esterase 2+ H NEGATIVE Urine RBC (Auto) 3+ H NEGATIVE Urine RBC TNTC H /HPF Urine WBC 2-5 /HPF Urine Squamous Epithelial Cells RARE /HPF Urine Crystals NONE /LPF Urine Bacteria NEGATIVE /HPF Urine Casts NONE /LPF Urine Mucus MODERATE H /LPF Urine Culture Indicated NO Urine Opiates Screen NEGATIVE NEGATIVE Urine Oxycodone Screen NEGATIVE NEGATIVE Urine Methadone Screen NEGATIVE NEGATIVE Urine Propoxyphene Screen NEGATIVE NEGATIVE Urine Barbiturates Screen NEGATIVE NEGATIVE Ur Tricyclic Antidepressants Screen NEGATIVE NEGATIVE Urine Phencyclidine Screen NEGATIVE NEGATIVE Urine Amphetamines Screen NEGATIVE NEGATIVE Urine Methamphetamines Screen NEGATIVE NEGATIVE Urine Benzodiazepines Screen POSITIVE H NEGATIVE Urine Cocaine Screen NEGATIVE NEGATIVE Urine Cannabinoids Screen NEGATIVE NEGATIVE My Orders Orders - PARTH NOBLE MD Ua Culture If Indicated (11/29/20 22:31) Cbc With Automated Diff (11/29/20 22:31) Comprehensive Metabolic Panel (11/29/20 22:31) Alcohol (11/29/20 22:31) Drug Screen Stat (Urine) (11/29/20 22:31) Acetaminophen (11/29/20 22:31) Salicylate (11/29/20 22:31) Ed Iv/Invasive Line Start (11/29/20 22:31) Manual Differential (11/29/20 22:44) Vital Signs/I&O 11/29/20 11/29/20 22:29 23:48 Temp 36.1 36.1 Pulse 105 102 Resp 18 18 B/P (MAP) 130/73 (92) 106/67 (92) Pulse Ox 96 94 O2 Delivery Room Air Room Air Capillary Refill : Progress Note #1: Progress Note d/w patient and daughter that can repeat testing that has been done in last 2 days to see if there has been any significant change in last 2 days that would account for her symptoms or that would necessitate an admit to medical hospital. Geriatric-Psych unit would likely be of benefit to help with her medicines and manage her A/V Hallucinations. Progress Note #2: Progress Note labs are stable and no acute infection or electrolyte imbalance to account for her hallucinations. She has had this as an ongoing issue but in the last few days she has been calling EMS repeatedly because of being scared at her apartment from her hallucinations. Departure Impression Primary Impression: Hallucinations Disposition: 01 HOME, SELF-CARE Condition: Stable Departure-Patient Inst. Decision time for Depature: 23:48 Referrals: EVELYNE ANTON APRN (PCP/Family) Primary Care Physician Patient Instructions: Evaluating Memory and Thinking Problems Add. Discharge Instructions: Work with Dr. Stroud and the [facility] clinic Monday morning to help arrange admit to retirement or care facility that can also see about adjusting medicine and evaluating hallucinations. There they can help with strengthening and conditioning as well to help you be able to get up out of bed and work on walking again so you can try to care for yourself. All discharge instructions reviewed with patient and/or family. Voiced understanding. PARTH NOBLE MD Nov 29, 2020 22:33
[2020-11-29 23:07] LABS: CLARITY,URINE TURBID; COLOR,URINE RED; PH,URINE 6.5 (5-9); PROTEIN,URINE 3+ (NEGATIVE)
[2020-11-29 23:08] LABS: GLUCOSE, URINE (UA) NEGATIVE (NEGATIVE)
[2020-11-29 23:09] LABS: KETONES,URINE 1+ (NEGATIVE); LEUKOCYTE ESTERASE ,URINE 2+ (NEGATIVE); NITRITE,URINE NEGATIVE (NEGATIVE)
[2020-11-29 23:10] LABS: BACTERIA,URINE NEGATIVE /HPF; RBC,URINE TNTC /HPF; SQUAMOUS EPITHELIAL CELL,UR RARE /HPF
[2020-11-29 23:19] LABS: AMPHETAMINE SCREEN, URINE NEGATIVE (NEGATIVE); BARBITURATE SCREEN URINE NEGATIVE (NEGATIVE); BENZODIAZEPINES SCREEN URINE POSITIVE (NEGATIVE); CANNABINOID SCREEN, URINE NEGATIVE (NEGATIVE); COCAINE SCREEN URINE NEGATIVE (NEGATIVE); METHADONE STAT NEGATIVE (NEGATIVE); METHAMPHETAMINE SCREEN URINE S NEGATIVE (NEGATIVE); OPIATE SCREEN URINE NEGATIVE (NEGATIVE); OXYCODONE STAT NEGATIVE (NEGATIVE); PROPOXYPHENE STAT NEGATIVE (NEGATIVE); TRICYCLIC ANTIDEPRESSANTS SCRE NEGATIVE (NEGATIVE)
[2020-11-29 23:20] LABS: BILIRUBIN,URINE 1+ (NEGATIVE)
[2020-11-29 23:23] LABS: HEMATOCRIT 32 % (35-52); HEMOGLOBIN 9.7 G/DL (11.5-16.0); MEAN CORPUSCULAR HEMOGLOBIN 29 PG (25-34); MEAN CORPUSCULAR VOLUME 95 FL (80-99); WHITE BLOOD COUNT 2.1 10^3/uL (4.3-11.0)
[2020-11-29 23:24] LABS: MEAN CORPUSCULAR HGB CONC 30 G/DL (32-36); PLATELET COUNT 246 10^3/uL (130-400)
[2020-11-29 23:25] LABS: BASOPHILS % (AUTO) 1 % (0-10); EOSINOPHILS # (AUTO) 0.1 10^3/uL (0.0-0.3); EOSINOPHILS % (AUTO) 4 % (0-10); LYMPHOCYTES # (AUTO) 0.5 X 10^3 (1.0-4.0); LYMPHOCYTES % (AUTO) 23 % (12-44); MEAN PLATELET VOLUME 9.2 FL (7.4-10.4); MONOCYTES # (AUTO) 0.5 X 10^3 (0.0-1.0); MONOCYTES % (AUTO) 22 % (0-12); NEUTROPHILS % (AUTO) 50 % (42-75)
[2020-11-29 23:27] LABS: CHLORIDE 113 MMOL/L (98-107); POTASSIUM 3.8 MMOL/L (3.6-5.0); SODIUM 141 MMOL/L (135-145)
[2020-11-29 23:28] LABS: ALANINE AMINOTRANSFERASE 19 U/L (0-55); ALBUMIN 1.7 GM/DL (3.2-4.5); ALKALINE PHOSPHATASE 245 U/L (40-136); BILIRUBIN,TOTAL 0.3 MG/DL (0.1-1.0); BUN/CREATININE RATIO 15; CALCIUM 8.3 MG/DL (8.5-10.1); CARBON DIOXIDE 18 MMOL/L (21-32); CREATININE SERUM 0.75 MG/DL (0.60-1.30); GFR ESTIMATED > 60; GLUCOSE 109 MG/DL (70-105); SALICYLATE < 0.3 MG/DL (5.0-20.0); TOTAL PROTEIN 4.3 GM/DL (6.4-8.2)
[2020-11-29 23:29] LABS: ACETAMINOPHEN < 10 UG/ML (10-30)
[2020-11-29 23:47] LABS: BAND NEUTROPHILS 1 %; EOSINOPHILS % (MANUAL) 2 %; LYMPHOCYTES % (MANUAL) 31 %; MONOCYTES % (MANUAL) 6 %; NEUTROPHILS % (MANUAL) 60 %
[2020-11-29 23:48] VITALS: BP 106/67
[2020-11-29 23:48] LABS: ANISOCYTOSIS MODERATE; PLATELET ESTIMATE ADEQUATE; POLYCHROMASIA MODERATE; RBC MORPH NORMAL
== END 2020-11-29 23:52 | disposition home or self-care (01) ==
LOC: ER FS 22:25
DX: R44.0 Auditory hallucinations (principal); R44.1 Visual hallucinations; I10 Essential (primary) hypertension; I25.10 Atherosclerotic heart disease of native coronary artery without angina pectoris; I25.2 Old myocardial infarction; K21.9 Gastro-esophageal reflux disease without esophagitis; F41.9 Anxiety disorder, unspecified; F32.9 Major depressive disorder, single episode, unspecified; Z95.5 Presence of coronary angioplasty implant and graft; Z87.440 Personal history of urinary (tract) infections; Z79.899 Other long term (current) drug therapy
CPT/HCPCS: 36415; 80053; 80306; 80320; 80329; 81000; 85007; 85027